=== PATIENT | male | born 1955 | race Caucasian/White ===

== ENCOUNTER 2016-11-11 01:52 | Inpatient (IN) | payer MEDICARE, OTHER ==
[~2016-11-11] VITALS: Ht 188 cm; Wt 77.9 kg
[2016-11-11] VITALS (19 sets, daily range): BP systolic 103–129; BP diastolic 62–78; PULSE 60–82; RESP 14–22; TEMP 95.7–97.9; O2SAT 95–99
[~2016-11-11 01:52] MED LIST: 1-ME1LIQ PO; ALBU8I INH; AZIT250T43 PO; BACT2OIN TOP; CEFU1TAB43 PO; CINA30 PO; FLON0.053; FURO80 PO; GUAN1TAB PO; LOTR15T TOP; METO25 PO; RENACAP2 PO; SEVEL800 PO
[2016-11-11 02:38] LABS: AUTOMATED NEUTROPHIL # 4.5 TH/MM3 (1.8-7.7); BASOPHIL % 0.6 % (0.0-2.0); EOSINOPHIL % 0.5 % (0.0-4.0); HEMATOCRIT 23.6 % (39.0-51.0); HEMO FLAGS DIFF FINAL; LYMPH % 20.3 % (9.0-44.0); LYMPHOCYTE # 1.4 TH/MM3 (1.0-4.8); MEAN CORPUSCULAR HEMOGLOBIN 32.5 PG (27.0-34.0); MEAN CORPUSCULAR HGB CONC 35.3 % (32.0-36.0); MONO % 13.9 % (0.0-8.0); NEUT % 64.7 % (16.0-70.0); PLATELET COUNT 231 TH/MM3 (150-450); RED BLOOD COUNT 2.56 MIL/MM3 (4.50-5.90); RED CELL DISTRIBUTION WIDTH 15.4 % (11.6-17.2); WHITE BLOOD COUNT 6.9 TH/MM3 (4.0-11.0)
[2016-11-11 02:48] LABS: APTT (PATIENT) 29.6 SEC (24.3-30.1); PROTHROMBIN TIME - PATIENT 11.2 SEC (9.8-11.6)
[2016-11-11 02:54] LABS: ALT (GPT) 32 U/L (12-78); ANION GAP 15 MEQ/L (5-15); AST (GOT) 47 U/L (15-37); BICARBONATE 26.8 MEQ/L (21.0-32.0); BLOOD UREA NITROGEN 109 MG/DL (7-18); CHLORIDE 89 MEQ/L (98-107); GLOMERULAR FILTRATION RATE 6 ML/MIN (>89); POTASSIUM 4.8 MEQ/L (3.5-5.1); SODIUM (NA) 131 MEQ/L (136-145)
[2016-11-11 02:57] LABS: ALKALINE PHOSPHATASE 278 U/L (45-117); TOTAL BILIRUBIN ADULT 0.3 MG/DL (0.2-1.0)
[2016-11-11] MEDS ORDERED: SODIUM CHLORIDE 0.9% FLUSH 5 ML FLUSH IVF PRN ×2 (03:45→09:00)
--- NOTE | 2016-11-11 04:26 | PD ---
HPI Chief Complaint: GI Complaint Time Seen by Provider: 02:06 Travel History International Travel<30 days: No Contact w/Intl Traveler<30days: No Traveled to known affect area: No History of Present Illness HPI The patient is a 61 year old male who presents to the [facility] emergency department with a history of developing abdominal cramping and distention that began at approximately 2 PM. He reports that it been associated with bloody stool 4 times, and vomiting 3. He denies ever having a problem like this previously, although he does report having a cancerous polyp resected from his colon in the past. He reports that it was localized therefore no other treatment was necessary. He cannot recall when he last had a colonoscopy done. The patient reports that he does have a history of chronic renal failure and is on hemodialysis on Friday, Friday, and Friday. He did have his usual dialysis on Friday. The patient denies any recent antibiotic use. He denies any known sick contacts. He denies any foreign travel. He denies any unusual food intake. The patient any recent fevers, worsening cough or congestion (he has chronic congestion and postnasal drip related to allergies), neck pain, chest pain, shortness of breath, urinary symptoms, or neurologic symptoms. PFS Past Medical History Narrative Medical The patient's past medical history is significant for chronic renal failure on hemodialysis, history of anemia, bipolar disorder, arthritis, hypertension, allergic rhinitis. Unfortunately, the patient has a limited recall of his history. The patient's electronic medical record was reviewed for further details. The patient was noted to have a history of GI bleed in December 2015. On endoscopy the patient was noted to have a polyp that was removed, a large AVM malformation, and a duodenal ulcer. Hx Anticoagulant Therapy: No Anemia: Yes Arthritis: Yes Autoimmune Disease: No Blood Disorders: No Bipolar Disorder: Yes Anxiety: No Depression: No Heart Rhythm Problems: No Cancer: Yes (skin) Cardiovascular Problems: Yes (HTN) High Cholesterol: No Chemotherapy: Yes Chest Pain: No Congestive Heart Failure: No COPD: No Cerebrovascular Accident: No Diabetes: No Dialysis: Yes (FRI, FRI, FRI) Diminished Hearing: No Endocrine: No Genitourinary: Yes Hypertension: Yes Immune Disorder: No Implanted Vascular Access Dvce: Yes Musculoskeletal: Yes Neurologic: No Psychiatric: No Reproductive: No Respiratory: No Immunizations Current: Yes Radiation Therapy: Yes Renal Failure: Yes Seizures: No Sickle Cell Disease: No Sleep Apnea: No Past Surgical History Narrative Surgical The patient's past surgical history is significant for AV fistula placement in the left upper extremity, neck surgery related to a tumor, hernia repair. Abdominal Surgery: Yes (hernia) AICD: No Arteriovenous Shunt: No Body Medical Devices: dialysis shunt l eft arm Cardiac Surgery: No Ear Surgery: No Endocrine Surgery: No Eye Surgery: No Genitourinary Surgery: No Hysterectomy: No Insulin Pump: No Joint Replacement: No Oral Surgery: No Pacemaker: No Thoracic Surgery: No Other Surgery: Yes (NECK SURGERY/TUMOR; L FISTULA, HERNIA REPAIR) Social History Alcohol Use: No (RARE ) Tobacco Use: Yes Substance Use: No Allergies-Medications (Allergen,Severity, Reaction): Coded Allergies: Haldol (Verified Allergy, Severe, SEIZURE, 07/15/16) Thorazine (Verified Allergy, Severe, SEIZURE, 07/15/16) Wellbutrin (Verified Allergy, Severe, SEIZURE, 07/15/16) Invega Sustenna (Verified Allergy, Unknown, 07/15/16) [place] (Verified Allergy, Unknown, 07/15/16) Risperdal (Verified Allergy, Unknown, 07/15/16) Valproic Acid (Verified Allergy, Unknown, 07/15/16) Reported Meds & Prescriptions Reported Meds & Active Scripts Active Reported Guanfacine (Guanfacine HCl) 1 Mg Tab 1 Mg PO HS Do not crush, chew or divide tablet. Take with a meal. Lasix (Furosemide) 80 Mg Tab 80 Mg PO DAILY Sensipar (Cinacalcet) 30 Mg Tab 30 Mg PO DAILY [Renalsoftgel ] 1 Cap PO DAILY Renvela (Sevelamer Carbonate) 800 Mg Tab 2,400 Mg PO DIRECTED Review of Systems Except as stated in HPI: all other systems reviewed are Neg General / Constitutional: No: Fever Eyes: No: Visual changes HENT: No: Headaches Cardiovascular: No: Chest Pain or Discomfort Respiratory: No: Shortness of Breath Gastrointestinal: Positive: Nausea, Vomiting, Diarrhea, Abdominal Pain, Hematochezia, Changes in Bowel Habits, No: Indigestion, Loss of Appetite Genitourinary: No: Dysuria Musculoskeletal: No: Pain Skin: No Rash Neurologic: No: Weakness Psychiatric: No: Depression Endocrine: No: Polydipsia Hematologic/Lymphatic: No: Easy Bruising Physical Exam Narrative General: The patient is a well-developed well-nourished male in no acute distress. Head and Neck exam: Head is normocephalic atraumatic. Eyes: Pupils are equal round and reactive to light. Nose: Midline septum with pink mucous membranes Mouth: Dentition unremarkable. Moist mucus membranes. Posterior oropharynx is not erythematous. No tonsillar hypertrophy. Uvula midline. Airway patent. Neck: No palpable lymphadenopathy. No nuchal rigidity. No thyromegaly. Cardiovascular: Regular rate and rhythm without murmurs, gallops, or rubs. Lungs: Clear to auscultation bilaterally. No wheezes, rhonchi, or rales. Abdomen: Soft, with reported tenderness on palpation along the suprapubic area and bilateral lower quadrants of the abdomen. No tenderness specifically over McBurney's point. No guarding, rebound, or rigidity. Negative [place] sign. Normal bowel sounds are audible. Extremities: No clubbing, cyanosis, or edema. 2+ pulses in all 4 extremities. The patient has a palpable thrill over a left AV fistula in the left upper extremity. Back: No spinous process tenderness to palpation. No costovertebral angle tenderness to palpation. Neurologic Exam: Grossly nonfocal. Skin Exam: No rash noted. Intact skin that is warm and dry. Data Data Last Documented VS Vital Signs Date Time Temp Pulse Resp B/P Pulse Ox O2 Delivery O2 Flow Rate FiO2 11/11/16 04:00 80 18 128/78 96 Room Air 11/11/16 01:56 97.8 Orders Complete Blood Count With Diff (11/11/16 02:28) Comprehensive Metabolic Panel (11/11/16 02:28) Prothrombin Time / Inr (Pt) (11/11/16 02:28) Act Partial Throm Time (Ptt) (11/11/16 02:28) Ecg Monitoring (11/11/16 02:28) Oximetry (11/11/16 02:28) Oxygen Administration (11/11/16 02:28) Iv Access Insert/Monitor (11/11/16 02:28) Type And Screen (11/11/16 02:28) Sodium Chloride 0.9% Flush (Ns Flush) (11/11/16 03:45) Ct Abd/Pel W/O Iv Contrast (11/11/16 03:31) Enteric Path (Stool) (11/11/16 04:45) Stool Wbc (Leukocytes) (11/11/16 04:45) C Diff Toxin Pcr (11/11/16 04:45) Red Blood Cells (Rbc) (11/11/16 05:13) Sodium Chlor 0.9% 250 Ml Inj (Ns 250 Ml (11/11/16 05:15) Pantoprazole Inj (Protonix Inj) (11/11/16 05:15) Pantoprazole Inj (Protonix Inj) (11/11/16 05:15) Admit Order (Ed Use Only) (11/11/16 05:20) Labs Laboratory Tests Test 11/11/16 11/11/16 11/11/16 02:14 04:29 05:13 White Blood Count 6.9 TH/MM3 Red Blood Count 2.56 MIL/MM3 Hemoglobin 8.3 GM/DL Hematocrit 23.6 % Mean Corpuscular Volume 92.0 FL Mean Corpuscular Hemoglobin 32.5 PG Mean Corpuscular Hemoglobin 35.3 % Concent Red Cell Distribution Width 15.4 % Platelet Count 231 TH/MM3 Mean Platelet Volume 8.2 FL Neutrophils (%) (Auto) 64.7 % Lymphocytes (%) (Auto) 20.3 % Monocytes (%) (Auto) 13.9 % Eosinophils (%) (Auto) 0.5 % Basophils (%) (Auto) 0.6 % Neutrophils # (Auto) 4.5 TH/MM3 Lymphocytes # (Auto) 1.4 TH/MM3 Monocytes # (Auto) 1.0 TH/MM3 Eosinophils # (Auto) 0.0 TH/MM3 Basophils # (Auto) 0.0 TH/MM3 CBC Comment DIFF FINAL Differential Comment Prothrombin Time 11.2 SEC Prothromb Time International 1.0 RATIO Ratio Activated Partial 29.6 SEC Thromboplast Time Sodium Level 131 MEQ/L Potassium Level 4.8 MEQ/L Chloride Level 89 MEQ/L Carbon Dioxide Level 26.8 MEQ/L Anion Gap 15 MEQ/L Blood Urea Nitrogen 109 MG/DL Creatinine 8.82 MG/DL Estimat Glomerular Filtration 6 ML/MIN Rate Random Glucose 97 MG/DL Calcium Level 8.8 MG/DL Total Bilirubin 0.3 MG/DL Aspartate Amino Transf 47 U/L (AST/SGOT) Alanine Aminotransferase 32 U/L (ALT/SGPT) Alkaline Phosphatase 278 U/L Total Protein 7.3 GM/DL Albumin 3.3 GM/DL Blood Type O POSITIVE Antibody Screen NEGATIVE Stool C. difficile Toxin (PCR) NEGATIVE Stl C. difficile Toxin PRESUMPTIVE Epiderm 027 NEGATIVE Crossmatch Leukocyte-Reduced Red Blood Cells Blood Bank Comment MDM Medical Decision Making Medical Screen Exam Complete: Yes Emergency Medical Condition: Yes Medical Record Reviewed: Yes Interpretation(s) Last Impressions Abdomen/Pelvis CT 11/11/16 0331 Signed Impressions: Service Date/Time: Friday, November 11, 2016 03:47 - CONCLUSION: Pockets of peritoneal fluid in the upper abdomen with overall quantity less than on prior exam. No definite acute CT findings. Baudilio Head MD Differential Diagnosis Bleeding from AVM malformation, versus hemorrhoids, versus peptic ulcer disease , versus diverticulosis Narrative Course During the course of the patients emergency department visit, the patients history, examination, and differential diagnosis were reviewed with the patient. The patient had IV access obtained and blood work sent for analysis. The patient was placed on a teletypesetter monitor with oximetry and blood pressure monitoring. The patient was given Protonix 80 mg IV followed by 8 mg IV per hour. The patient was typed and screened for blood. The patients laboratory studies were reviewed and remarkable for a white count of 6.9, hemoglobin 8.3, platelets 231 with a monocytosis at 13.9. CMP is remarkable for sodium of 131, chloride 89, BUN 109, creatinine 8.82, GFR 6, AST 47, alkaline phosphatase 278, PT 11.2, INR 29.6. Radiology studies were reviewed and remarkable for a CT scan of the abdomen and pelvis that shows pockets the peritoneal fluid in the upper abdomen with overall quantity less than on prior examinations, no definite acute CT findings. The patient during observation in the emergency department continued to have multiple episodes of bloody stool, at least 4 times. Stool was sent for stool studies. The stool was Hemoccult-positive. The patient was typed and crossmatched for 2 units of packed red blood cells to be placed on hold. I review the patient's electronic record reveals that the patient had a GI bleed in December 2015. He underwent endoscopy and was noted to have an AVM, a duodenal ulcer, and polyps status post polypectomy that revealed on pathology and adenomatous polyp. The patient had recurrent bleeding in the emergency department and is hemoglobin was borderline at 8.3. The patient was started on 1 unit of packed red blood cells. The patient's stool studies are C. difficile negative. The patients results were discussed with the patient, including the plan of care. I explained that further testing and/ or monitoring is indicated based on the patients history, examination, and/ or laboratory findings. Therefore, I recommended admission for additional evaluation. The patient expressed understanding and was agreeable with this plan. The patient was admitted to the hospital in stable condition and sent to a bed under the care of the [facility]. Physician Communication Physician Communication The patient's case was discussed with Dr. Lewis who did agree to admit the patient for further evaluation and treatment at this time Diagnosis Primary Impression: GI bleed Qualified Code: K92.2 - Gastrointestinal hemorrhage, unspecified gastrointestinal hemorrhage type Admitting Information Admitting Physician Requests: Neha Giles MD Nov 11, 2016 04:26
--- NOTE | 2016-11-11 04:51 | RADRPT ---
EXAM DATE/TIME: 11/11/2016 03:47 [facility] COMPARISON: CT ABDOMEN & PELVIS W CONTRAST, February 09, 2016, 10:04. INDICATIONS : Abdominal pain with blood in stool. ORAL CONTRAST: No oral contrast ingested. RADIATION DOSE: 9.96 CTDIvol (mGy) MEDICAL HISTORY : Hypertension. Renal failure, chronic. Dialysis 3x/week. SURGICAL HISTORY : Hernia repair. ENCOUNTER: Initial ACUITY: 1 day PAIN SCALE: 0/10 LOCATION: Bilateral abdomen. TECHNIQUE: Volumetric scanning of the abdomen and pelvis was performed. Using automated exposure control and ad justment of the mA and/or kV according to patient size, radiation dose was kept as low as reasonably achievable to obtain optimal diagnostic quality images. FINDINGS: There is mild atelectasis or infiltrate at the left lung base. Within the abdomen, there is peritoneal fluid, mainly in the upper quadrants with quantity less than on the prior film. The liver, spleen, pancreas and adrenals are stable and benign in appearance. The kidneys are atrophic and polycystic. Atherosclerotic calcifications involving aorta and branch vessels. There has been previous embolizati on of the gastroduodenal artery. The bowel structures are nondilated. Urinary bladder is decompressed. There is no evidence of retrope ritoneal adenopathy. The inguinal regions are clear. CONCLUSION: Pockets of peritoneal fluid in the upper abdomen with overall quantity less than on prior exam. No definite acute CT findings. Baudilio Head MD on November 11, 2016 at 4:43 Board Certified Radiologist. This report was verified electronically.
[2016-11-11] MEDS ORDERED: SODIUM CHLOR 0.9% 250 ML INJ 250 ML IV ONE ×3 (05:15→10:45)
[2016-11-11] MEDS ORDERED: PANTOPRAZOLE INJ 80 MG in SODIUM CHLORIDE 0.9% INJ 35 ML IV ONE (05:15)
[2016-11-11] MEDS ORDERED: PANTOPRAZOLE INJ 80 MG in SODIUM CHLORIDE 0.9% INJ 100 ML IV SCH (05:15)
[2016-11-11] MEDS ORDERED: SODIUM CHLORIDE 0.9% FLUSH 5 ML FLUSH FLUSH PRN (05:30)
[2016-11-11] MEDS ORDERED: ALBUTEROL SULFATE 90 MCG/ACT HFA 8 GM INHALER INH PRN (05:30)
[2016-11-11] MEDS ORDERED: MORPHINE SULFATE 4 MG/ML INJ IV PRN (05:30)
[2016-11-11] MEDS ORDERED: ONDANSETRON HCL 4 MG/2 ML VIAL IVP PRN (05:30)
[2016-11-11] MEDS ORDERED: BISACODYL 10 MG SUPP PR PRN (05:30)
--- NOTE | 2016-11-11 05:38 | HHI.HP ---
[facility] Unknown Admission Diagnosis GI Bleed Diagnoses: (1) GI (gastrointestinal bleed) Diagnosis: Principal (2) ESRD (end stage renal disease) on dialysis Diagnosis: Principal (3) COPD (chronic obstructive pulmonary disease) Diagnosis: Principal Travel History International Travel<30 Days: No Contact w/Intl Traveler <30 Da: No Traveled to Known Affected Are: No History of Present Illness This is a 61-year-old male with a PMH of HTN, COPD, ESRD on HD M/W/F, h/o Alcohol Abuse, Cirrhosis and h/o GI Bleed who came to the ER w/ complaints of abdominal pain w/ associated nausea and vomiting starting yesterday afternoon. Denies fever, chills or diarrhea. Had HD on Friday without complications. H/o GI Bleed in the past, s/p EGD/Colonoscopy 01/20/[address] Anna w/ large angiodysplastic legion in descending colon near splenic flexure, polyp and duodenal ulcer. While in ER, pt w/ several episodes of maroon stool. Currently on Protonix gtt. Vitals stable. Hgb 8.3, previously 9.1 on 08/03/16. Review of Systems Other ROS: 14 point review of systems otherwise negative. Past Family Social History Past Medical History PMH: HTN, COPD, ESRD on HD M/W/F, h/o Alcohol Abuse, Cirrhosis and h/o GI Bleed Past Surgical History PAST SURGICAL HISTORY: AV Fistula, Hernia Repair, Neck Surgery Allergies: Coded Allergies: Haldol (Verified Allergy, Severe, SEIZURE, 07/15/16) Thorazine (Verified Allergy, Severe, SEIZURE, 07/15/16) Wellbutrin (Verified Allergy, Severe, SEIZURE, 07/15/16) Invega Sustenna (Verified Allergy, Unknown, 07/15/16) [place] (Verified Allergy, Unknown, 07/15/16) Risperdal (Verified Allergy, Unknown, 07/15/16) Valproic Acid (Verified Allergy, Unknown, 07/15/16) Family History PAST FAMILY HISTORY: Reviewed. No h/o DM or CAD Social History PAST SOCIAL HISTORY: History of alcohol abuse. Positive for tobacco. Negative for drugs. Physical Exam Vital Signs Vital Signs Date Time Temp Pulse Resp B/P Pulse Ox O2 Delivery O2 Flow Rate FiO2 11/11/16 01:56 97.8 70 18 129/77 95 Physical Exam PE: GENERAL: Pleasant middle-age male in no acute distress. HEENT: PERRLA, EOMI. No scleral icterus or conjunctival pallor. No lid lag or facial droop. CARDIOVASCULAR: Regular rate and rhythm. No obvious murmurs to auscultation. No chest tenderness to palpation. RESPIRATORY: No obvious rhonchi or wheezing. Clear to auscultation. Breath sounds equal bilaterally. GASTROINTESTINAL: Abdomen soft, generalized tenderness palpation, nondistended. BS normal. MUSCULOSKELETAL: Extremities without clubbing, cyanosis, or edema. No obvious deformities. NEUROLOGICAL: Awake, alert and oriented x4. No focal neurologic deficits. Moving both upper and lower extremities spontaneously. Laboratory Laboratory Tests Test 11/11/16 11/11/16 02:14 05:13 White Blood Count 6.9 Red Blood Count 2.56 Hemoglobin 8.3 Hematocrit 23.6 Mean Corpuscular Volume 92.0 Mean Corpuscular Hemoglobin 32.5 Mean Corpuscular Hemoglobin 35.3 Concent Red Cell Distribution Width 15.4 Platelet Count 231 Mean Platelet Volume 8.2 Neutrophils (%) (Auto) 64.7 Lymphocytes (%) (Auto) 20.3 Monocytes (%) (Auto) 13.9 Eosinophils (%) (Auto) 0.5 Basophils (%) (Auto) 0.6 Neutrophils # (Auto) 4.5 Lymphocytes # (Auto) 1.4 Monocytes # (Auto) 1.0 Eosinophils # (Auto) 0.0 Basophils # (Auto) 0.0 CBC Comment DIFF FINAL Differential Comment Prothrombin Time 11.2 Prothromb Time International 1.0 Ratio Activated Partial 29.6 Thromboplast Time Sodium Level 131 Potassium Level 4.8 Chloride Level 89 Carbon Dioxide Level 26.8 Anion Gap 15 Blood Urea Nitrogen 109 Creatinine 8.82 Estimat Glomerular Filtration 6 Rate Random Glucose 97 Calcium Level 8.8 Total Bilirubin 0.3 Aspartate Amino Transf 47 (AST/SGOT) Alanine Aminotransferase 32 (ALT/SGPT) Alkaline Phosphatase 278 Total Protein 7.3 Albumin 3.3 Blood Type O POSITIVE Antibody Screen NEGATIVE Crossmatch Leukocyte-Reduced Red Blood Cells Blood Bank Comment Date/Time Procedure Status Source Growth 11/11/16 04:29 Stool Pus (LIZY) Received Stool Stool Pending 11/11/16 04:29 Received Stool Stool Pending Result Diagram: 11/11/1621311/11/16213 Assessment and Plan Problem List: (1) GI bleed ICD Code: K92.2 Status: Acute (2) ESRD (end stage renal disease) on dialysis ICD Code: N18.6 Status: Chronic (3) COPD (chronic obstructive pulmonary disease) ICD Code: J44.9 Status: Chronic Assessment and Plan A/P: 1. GI Bleed: h/o GI Bleed, EGD/Colonoscopy 01/20/16 w/ large AVM, polyp and duodenal ulcer. Now w/ multiple episodes of maroon stool, nausea/vomiting. Started on Protonix gtt, will continue. Vitals stable, Hgb 8.3, previously 9.1 on 08/03/16. 2u pRBC on hold, will transfuse as needed. Consult GI for further evaluation. 2. ESRD on HD: M/W/F. Follows w/ Dr. Schuster as outpatient. Had HD on Friday w / no complications. Will consult nephrology to continue w/ HD as scheduled. 3. COPD: Chronic Respiratory Failure. Controlled. DuoNeb prn as needed. 4. Tobacco Abuse: Pt counselled. Ativan/NicoDerm prn if needed. 5. DVT Prophylaxis: SCD/Teds. 6. Social work for d/c planning as needed. 7. Case discussed w/ ER physician at length. Physician Certification 2 Midnight Certification Type: Admission for Inpatient Services Order for Inpatient Services The services are ordered in accordance with Medicare regulations or non- Medicare payer requirements, as applicable. In the case of services not specified as inpatient-only, they are appropriately provided as inpatient services in accordance with the 2-midnight benchmark. Estimated LOS (days): 2 days is the estimated time the patient will need to remain in the hospital, assuming treatment plan goals are met and no additional complications. Post-Hospital Plan: Not yet determined Problem Qualifiers (1) GI bleed: Qualified Code: K92.2 - Gastrointestinal hemorrhage, unspecified gastrointestinal hemorrhage type Asya Lewis MD Nov 11, 2016 05:38
[2016-11-11] MEDS ORDERED: [UNRECOGNIZED DRUG - OTHER] PO (06:09)
[2016-11-11] MEDS ORDERED: SEVEL800 PO (06:09)
[2016-11-11] MEDS ORDERED: FURO1TAB61 PO (06:12)
[2016-11-11] MEDS ORDERED: CINA30 PO (06:12)
[2016-11-11] MEDS ORDERED: GUAN1TAB PO (06:13)
[2016-11-11 06:19] LABS: C. DIFF EPI 027 PRESUMPTIVE NEGATIVE (NEGATIVE); C. DIFF TOXIN PCR NEGATIVE (NEGATIVE)
[2016-11-11] MEDS: ACETAMINOPHEN 325 MG TAB PO PRN ×2 (07:36→17:42)
--- NOTE | 2016-11-11 08:10 | PD.CONS ---
HPI History of Present Illness This is a 61 year old male patient with a hx of End-stage renal disease on hemodialysis Mondays, Wednesdays, and Fridays, GI bleeding from a duodenal bulb ulcer, and Campylobacter diarrhea, who came to the ER for evaluation of nausea, vomiting, and abdominal pain and started to have hematochezia consisting of maroon bloody stool while in the ER. He started having nausea and vomiting yesterday afternoon. He reports that this was a green bilious material, that then turned clear, and then dark brown. He has some mild lower abdominal discomfort described as mild pressure. He does have chronic loose stools with 1 -2 stools per day. Yesterday, around 2pm, he started having hematochezia with a moderate amount of maroon blood mixed within his stool. He is not currently taking any Protonix or other stomach meds at home. He has not taken any Ibuprofen or Aleve. He did take 2 acetaminophen for the abdominal pressure and reports that this helped. He was hospitalized earlier this year for GI bleeding and underwent evaluation with EGD on (01/24/16)---> Medium sized ulcer was found in the duodenal bulb, normal endoscopy otherwise, retroflexed views revealed no abnormalities. Pathology revealed focal acute duodenitis. S/P Colonoscopy with multiple polypectomies (01/25/16) pathology revealed adenomatous polyps. After the procedure he had rectal bleeding and was further evaluated with a repeat colonoscopy (01/26/16)--> bleeding, no active source identified. He then went for an angiogram/embolization on (01/27/16)---> Active bleeding identified from the descending duodenum, presumably at site of an ulcer. 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 Both of these foci were embolized. (Cassia Peterson) PFSH Past Medical History End-stage renal disease on hemodialysis Mondays, as Wednesdays, Fridays Bipolar disorder Chronic anemia Heavy alcohol use Adjustment disorder CHF COPD Epilepsy Gout Hypertensive nephropathy Hypertension Peptic ulcer disease Ascites History GI bleeding Multiple colon polyps- tubulovillous, tubular adenoma Duodenal ulcer Gastritis/esophagitis Campylobacter diarrhea Past Surgical History Hernia repair AV fistula placements Dialysis catheter placement Neck tumor removal EGD and colonoscopy (Cassia Peterson) Coded Allergies: Haldol (Verified Allergy, Severe, SEIZURE, 07/15/16) Thorazine (Verified Allergy, Severe, SEIZURE, 07/15/16) Wellbutrin (Verified Allergy, Severe, SEIZURE, 07/15/16) Invega Sustenna (Verified Allergy, Unknown, 07/15/16) Ecru (Verified Allergy, Unknown, 07/15/16) Risperdal (Verified Allergy, Unknown, 07/15/16) Valproic Acid (Verified Allergy, Unknown, 07/15/16) Medications Allergies Coded Allergies Type Severity Reaction Last Updated Verified Haldol Allergy Severe SEIZURE 07/15/16 Yes Thorazine Allergy Severe SEIZURE 07/15/16 Yes Wellbutrin Allergy Severe SEIZURE 07/15/16 Yes Invega Sustenna Allergy Unknown 07/15/16 Yes Ecru Allergy Unknown 07/15/16 Yes Risperdal Allergy Unknown 07/15/16 Yes Valproic Acid Allergy Unknown 07/15/16 Yes Active Scripts Medications Dose Route/Sig Days Date Category Dose Instructions Guanfacine (Guanfacine HCl) 1 Mg Tab 1 Mg PO HS 11/11/16 Reported Do not crush, chew or divide tablet. Take with a meal. Lasix (Furosemide) 80 Mg Tab 80 Mg PO DAILY 11/11/16 Reported Sensipar (Cinacalcet) 30 Mg Tab 30 Mg PO DAILY 11/11/16 Reported [Renalsoftgel ] 1 Cap PO DAILY 11/11/16 Reported Renvela (Sevelamer Carbonate) 800 Mg Tab 2,400 Mg PO DIRECTED 11/11/16 Reported Family History Father from colon cancer in his 60's. Social History Occasional tobacco use. Occasional ETOH use. Had 2 beers yesterday. No illicit drug use (Cassia Peterson) Review of Systems Constitutional: COMPLAINS OF: Fatigue, DENIES: Fever, Weight loss, Chills, Change in appetite Respiratory: DENIES: Cough, Shortness of breath Cardiovascular: DENIES: Chest pain Gastrointestinal: COMPLAINS OF: Abdominal pain, Bloody stools, Diarrhea (no diarrhea, loose stool), Nausea, Vomiting, DENIES: Black stools, Constipation, Hematemesis Musculoskeletal: COMPLAINS OF: Joint pain, Muscle aches, Back pain, Neck pain Integumentary: DENIES: Abnormal pigmentation Hematologic/lymphatic: COMPLAINS OF: Bruising Neurologic: DENIES: Headache Psychiatric: DENIES: Confusion (Peterson,Cassia Rae HOSPICE MANAGER) GI Exam Vitals I&O Vital Signs Date Time Temp Pulse Resp B/P Pulse Ox O2 Delivery O2 Flow Rate FiO2 11/11/16 08:02 74 14 111/68 97 Room Air 11/11/16 07:32 82 22 122/69 96 Room Air 11/11/16 07:03 97.9 79 20 108/77 99 Room Air 11/11/16 06:32 71 15 103/72 96 Room Air 11/11/16 06:20 97.7 71 14 119/64 99 Room Air 11/11/16 06:10 97.9 76 16 117/66 97 Room Air 11/11/16 06:06 72 15 103/65 97 Room Air 11/11/16 06:03 97.8 73 14 106/62 98 Room Air 11/11/16 05:38 72 15 119/73 99 Room Air 11/11/16 04:00 80 18 128/78 96 Room Air 11/11/16 01:56 97.8 70 18 129/77 95 I/O 11/10/16 11/10/16 11/10/16 11/11/16 11/11/16 11/11/16 07:00 15:00 23:00 07:00 15:00 23:00 Output Total 80 ml Balance -80 ml Output Stool Total 80 ml # Bowel Movements 1 Imaging Last Impressions Abdomen/Pelvis CT 11/11/16 0331 Signed Impressions: Service Date/Time: Friday, November 11, 2016 03:47 - CONCLUSION: Pockets of peritoneal fluid in the upper abdomen with overall quantity less than on prior exam. No definite acute CT findings. Baudilio Head MD Laboratory Test 11/11/16 11/11/16 11/11/16 02:14 04:29 05:13 White Blood Count 6.9 TH/MM3 Red Blood Count 2.56 MIL/MM3 Hemoglobin 8.3 GM/DL Hematocrit 23.6 % Mean Corpuscular Volume 92.0 FL Mean Corpuscular Hemoglobin 32.5 PG Mean Corpuscular Hemoglobin 35.3 % Concent Red Cell Distribution Width 15.4 % Platelet Count 231 TH/MM3 Mean Platelet Volume 8.2 FL Neutrophils (%) (Auto) 64.7 % Lymphocytes (%) (Auto) 20.3 % Monocytes (%) (Auto) 13.9 % Eosinophils (%) (Auto) 0.5 % Basophils (%) (Auto) 0.6 % Neutrophils # (Auto) 4.5 TH/MM3 Lymphocytes # (Auto) 1.4 TH/MM3 Monocytes # (Auto) 1.0 TH/MM3 Eosinophils # (Auto) 0.0 TH/MM3 Basophils # (Auto) 0.0 TH/MM3 CBC Comment DIFF FINAL Differential Comment Prothrombin Time 11.2 SEC Prothromb Time International 1.0 RATIO Ratio Activated Partial 29.6 SEC Thromboplast Time Sodium Level 131 MEQ/L Potassium Level 4.8 MEQ/L Chloride Level 89 MEQ/L Carbon Dioxide Level 26.8 MEQ/L Anion Gap 15 MEQ/L Blood Urea Nitrogen 109 MG/DL Creatinine 8.82 MG/DL Estimat Glomerular Filtration 6 ML/MIN Rate Random Glucose 97 MG/DL Calcium Level 8.8 MG/DL Total Bilirubin 0.3 MG/DL Aspartate Amino Transf 47 U/L (AST/SGOT) Alanine Aminotransferase 32 U/L (ALT/SGPT) Alkaline Phosphatase 278 U/L Total Protein 7.3 GM/DL Albumin 3.3 GM/DL Blood Type O POSITIVE Antibody Screen NEGATIVE Stool C. difficile Toxin (PCR) NEGATIVE Stl C. difficile Toxin PRESUMPTIVE Epiderm 027 NEGATIVE Crossmatch Leukocyte-Reduced Red Blood Cells Blood Bank Comment Date/Time Procedure Status Source Growth 11/11/16 04:29 Stool Pus (LIZY) Received Stool Stool Pending 11/11/16 04:29 Received Stool Stool Pending Physical Examination HEENT: Normocephalic; atraumatic; no jaundice. CHEST: CTA, diminished bases CARDIAC: RRR. ABDOMEN: Soft, nondistended, nontender; no hepatosplenomegaly; bowel sounds are present in all four quadrants. EXTREMITIES: Mild bilateral ankle edema. SKIN: Normal; no rash; no jaundice. CEREAL POPPER: No focal deficits; alert and oriented times three. (Cassia PetersonP) Assessment and Plan Plan ASSESSMENT: - GIB, Hematochezia with maroon blood mixed within his stool. Started with nausea/vomiting/lower abdominal pressure yesterday afternoon. He does not take NSAIDs, although he did have a couple of drinks yesterday. While in ER, he started having maroon bloody stools. HH 8.3/23.6. He has received one unit of blood. He was hospitalized for GI bleeding last year and was evaluated with EGD on (01/24/16)---> Medium sized ulcer was found in the duodenal bulb, normal endoscopy otherwise, retroflexed views revealed no abnormalities. Pathology revealed focal acute duodenitis. S/P Colonoscopy with multiple polypectomies (01/25/16) pathology revealed adenomatous polyps. After the procedure he had rectal bleeding and was further evaluated with a repeat colonoscopy (01/26/16)--> bleeding, no active source identified. He then went for an angiogram/embolization on (01/27/16)---> Active bleeding identified from the descending duodenum, presumably at site of an ulcer. 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 Both of these foci were embolized. Protonix Gtt. Clear liquids. Will make NPO and schedule for EGD today. - Anemia secondary to acute blood loss. S/P 1 unit of PRBC. 8.3/23.6. - Hyponatremia. Na 131. - ESRD on HD M/W/F - HTN, COPD per primary PLAN: - Plan for EGD today - Obtain consents - NPO - Protonix Gtt - Monitor HH - Transfuse as necessary - CBC, CMP today - Supportive care - Further recommendations to follow based on results of above - Pt seen and examined by Dr. Salinas and myself and this note is written on his behalf (Cassia Peterson) Physician Comments Seen and examined with Ms. Kristen KEMP< egd today. Possible colonoscopy if egd - ve. Monitor labs. Thank you (Osmel Salinas MD) Cassia Peterson Nov 11, 2016 08:10 Osmel Salinas MD Nov 11, 2016 14:11
[2016-11-11] MEDS: SEVELAMER CARBONATE 800 MG TAB PO SCH ×3 (08:59→17:41)
[2016-11-11] MEDS: FUROSEMIDE 80 MG TAB PO SCH (08:59)
[2016-11-11] MEDS ORDERED: GENTAMICIN SULFATE (DIALYSIS USE ONLY) 20 MG/2 ML VIAL IV PRN (09:00)
[2016-11-11] MEDS ORDERED: ALBUMIN HUMAN 25% 25 GM/100 ML BAGP IV PRN (09:00)
[2016-11-11] MEDS ORDERED: NITROGLYCERIN 0.4 MG SL 25 TABS/BTL SL PRN (09:00)
[2016-11-11] MEDS: SODIUM CHLORIDE 0.9% FLUSH 5 ML FLUSH FLUSH SCH ×2 (09:00→21:55)
[2016-11-11] MEDS ORDERED: MANNITOL 12.5 GM/50 ML VIAL IV PRN (09:00)
[2016-11-11] MEDS ORDERED: ACETAMINOPHEN 325 MG TAB PO PRN (09:00)
[2016-11-11] MEDS ORDERED: diphenhydrAMINE HCL 25 MG CAP PO PRN (09:00)
[2016-11-11] MEDS ORDERED: HEPARIN SODIUM - IV 10,000 UNITS/10 ML VIAL IVF PRN (09:00)
[2016-11-11] MEDS: VITAMIN B CMPLX/VITC/FOLIC AC CAP PO SCH (09:00)
[2016-11-11] MEDS ORDERED: GELATIN 12 MM/7 MM FOAM TOP PRN (09:00)
[2016-11-11] MEDS ORDERED: cloNIDine HCL 0.1 MG TAB PO PRN (09:00)
[2016-11-11] MEDS ORDERED: ONDANSETRON HCL 4 MG/2 ML VIAL IV PRN (09:00)
[2016-11-11] MEDS ORDERED: EPOETIN ALFA 10,000 UNITS/ML VIAL IV PRN (09:00)
[2016-11-11] MEDS ORDERED: HEPARIN SODIUM - IV 10,000 UNITS/10 ML VIAL PRN (09:00)
[2016-11-11] MEDS: METOPROLOL TARTRATE 50 MG TAB PO SCH ×2 (09:00→21:55)
[2016-11-11] MEDS ORDERED: SODIUM CHLOR 0.9% 1000 ML INJ 1,000 ML IV PRN ×3 (09:00)
[2016-11-11 09:25] LABS: AUTOMATED NEUTROPHIL # 2.9 TH/MM3 (1.8-7.7); BASOPHIL % 0.6 % (0.0-2.0); EOSINOPHIL % 0.9 % (0.0-4.0); HEMATOCRIT 22.5 % (39.0-51.0); HEMO FLAGS DIFF FINAL; LYMPH % 18.7 % (9.0-44.0); LYMPHOCYTE # 0.8 TH/MM3 (1.0-4.8); MEAN CELL VOLUME 91.4 FL (80.0-100.0); MEAN CORPUSCULAR HEMOGLOBIN 31.7 PG (27.0-34.0); MEAN CORPUSCULAR HGB CONC 34.7 % (32.0-36.0); MONO % 14.6 % (0.0-8.0); NEUT % 65.2 % (16.0-70.0); PLATELET COUNT 164 TH/MM3 (150-450); RED BLOOD COUNT 2.46 MIL/MM3 (4.50-5.90); RED CELL DISTRIBUTION WIDTH 15.1 % (11.6-17.2); WHITE BLOOD COUNT 4.4 TH/MM3 (4.0-11.0)
[2016-11-11 10:29] LABS: ALKALINE PHOSPHATASE 231 U/L (45-117); ALT (GPT) 27 U/L (12-78); ANION GAP 15 MEQ/L (5-15); AST (GOT) 39 U/L (15-37); BICARBONATE 25.7 MEQ/L (21.0-32.0); BLOOD UREA NITROGEN 120 MG/DL (7-18); CHLORIDE 91 MEQ/L (98-107); GLOMERULAR FILTRATION RATE 6 ML/MIN (>89); SODIUM (NA) 132 MEQ/L (136-145); TOTAL BILIRUBIN ADULT 0.5 MG/DL (0.2-1.0)
[2016-11-11] MEDS ORDERED: PROPOFOL 200 MG/20 ML AMP IV ONE (15:58)
[2016-11-11] MEDS: PANTOPRAZOLE INJ 80 MG in SODIUM CHLORIDE 0.9% INJ 100 ML IV SCH (17:41)
[2016-11-11 19:09] LABS: HEMATOCRIT 25.5 % (39.0-51.0); REVIEW FLAG FINAL
[2016-11-12 00:01] VITALS: BP 99/59; PULSE 70; RESP 16; TEMP 96.6; O2SAT 95
[2016-11-12] MEDS: PANTOPRAZOLE INJ 80 MG in SODIUM CHLORIDE 0.9% INJ 100 ML IV SCH ×2 (02:52→13:00)
[2016-11-12 04:15] VITALS: BP 136/74; PULSE 64; RESP 17; TEMP 96.2; O2SAT 95
[2016-11-12 05:23] LABS: BASOPHIL % 0.3 % (0.0-2.0); EOSINOPHIL % 0.6 % (0.0-4.0); HEMATOCRIT 27.4 % (39.0-51.0); HEMO FLAGS DIFF FINAL; LYMPH % 19.5 % (9.0-44.0); LYMPHOCYTE # 0.8 TH/MM3 (1.0-4.8); MEAN CELL VOLUME 89.5 FL (80.0-100.0); MEAN CORPUSCULAR HEMOGLOBIN 31.7 PG (27.0-34.0); MEAN CORPUSCULAR HGB CONC 35.4 % (32.0-36.0); MONO % 9.6 % (0.0-8.0); PLATELET COUNT 150 TH/MM3 (150-450); RED BLOOD COUNT 3.06 MIL/MM3 (4.50-5.90); RED CELL DISTRIBUTION WIDTH 18.7 % (11.6-17.2); WHITE BLOOD COUNT 4.3 TH/MM3 (4.0-11.0)
[2016-11-12 05:28] LABS: PROTHROMBIN TIME - PATIENT 10.8 SEC (9.8-11.6)
[2016-11-12 05:48] LABS: ALKALINE PHOSPHATASE 231 U/L (45-117); ALT (GPT) 29 U/L (12-78); ANION GAP 11 MEQ/L (5-15); AST (GOT) 47 U/L (15-37); BICARBONATE 30.4 MEQ/L (21.0-32.0); BLOOD UREA NITROGEN 66 MG/DL (7-18); CHLORIDE 97 MEQ/L (98-107); GLOMERULAR FILTRATION RATE 9 ML/MIN (>89); POTASSIUM 4.2 MEQ/L (3.5-5.1); SODIUM (NA) 138 MEQ/L (136-145); TOTAL BILIRUBIN ADULT 0.3 MG/DL (0.2-1.0)
--- NOTE | 2016-11-12 07:39 | MB ---
cc: KALEB MENDIOLA MD DATE OF CONSULTATION 11/11/2016 REASON FOR CONSULTATION End-stage renal disease on hemodialysis for management. HISTORY OF PRESENT ILLNESS This is 61-year-old male with past medical history of hypertension, chronic obstructive pulmonary disease, history of alcoholism, chronic liver disease, cirrhosis, history of GI bleeding with chronic anemia and end-stage renal disease on hemodialysis. He came to the hospital because of the GI bleeding. The patient has had multiple endoscopies and colonoscopies done in the past and he has history of GI bleeding. He also has history of alcoholism and according to him the last time he drank alcohol was 3-4 days ago. He noticed fresh blood in the stool and came to the hospital. He was seen by the GI and just went under endoscopy. I saw him in dialysis. This time he came with nausea, vomiting and abdominal pain and he has really maroon stools. There was no blood in the vomitus. He claims to be compliant with his dialysis treatment. His hemoglobin was low and he is getting blood transfusion now with dialysis. PAST MEDICAL HISTORY 1. Hypertension. 2. Chronic obstructive pulmonary disease. 3. Chronic liver disease. 4. History of GI bleeding. 5. History of alcohol abuse. 6. End-stage renal disease on hemodialysis. 7. Chronic anemia. PAST SURGICAL HISTORY 1. A-V fistula surgery. 2. History of neck surgery. 3. Hernia repair surgery. REVIEW OF SYSTEMS No history of fever. No sore throat. No headache, dizziness or blurring of vision. The patient has generalized weakness, feeling tired. He has nausea, vomiting and abdominal pain going on along with maroon stool. There is no blood in the vomitus. No chest pain or palpitations. SOCIAL HISTORY The patient has history of alcoholism and also of smoking. There is no history of using any other drugs. FAMILY HISTORY Noncontributory. ALLERGIES Allergic to multiple medications including - HALDOL. THORAZINE. WELLBUTRIN. LITHIUM. RISPERDAL. VALPROIC ACID. MEDICATIONS Currently he is on following medications - 1. Metoprolol 50 mg b.i.d. 2. Furosemide 80 mg once a day. 3. Nephrocaps 1 capsule daily. 4. Protonix IV infusion. 5. Renvela 2.4 grams t.i.d. with meals. 6. Zofran as needed. 7. Dulcolax as needed. PHYSICAL EXAMINATION GENERAL: On examination the patient is awake and alert. He is currently on dialysis. VITAL SIGNS: His last blood pressure is 117/69, temperature is 97.7, oxygen saturation on room air 95-99%. HEENT: Pupils equally reacting to light. Nonicteric sclerae. Conjunctivae are pale. NECK: Supple. JVD is not elevated. LUNGS: The patient has bilateral decreased air entry with occasional wheezing. HEART: S1, S2. Regular rhythm. ABDOMEN: Slightly distended, soft, lax. There is no tenderness. Bowel sounds positive. EXTREMITIES: There is mild edema in the legs. INVESTIGATIONS WBC count is 4.4, hemoglobin 7.8, platelet count 164, neutrophils 65.2%, sodium 132. Potassium 5.0, chloride 91, bicarb 25.7, BUN 120, creatinine 9.1. Calcium 8.1, total protein is 5.9. Albumin of 2.6. INR is 1.0; C-difficile toxin is PCR negative. IMAGING STUDIES The patient has CT scan of the abdomen and pelvis done which shows that he has peritoneal fluid in the upper abdomen. No acute changes. The patient has had endoscopy done and results are still pending. ASSESSMENT AND PLAN 1. GI bleeding and anemia. 2. End-stage renal disease on hemodialysis. 3. History of alcohol abuse. 4. Hypertension 5. Chronic liver disease. 6. COPD and chronic smoking. The patient he is getting blood transfusion now. The last hemoglobin we have is 7.8. He is on Protonix infusion. GI has been following and he had endoscopy done. We will follow the hemoglobin level and transfuse as needed. He is on Epogen with dialysis. We are removing 2 liters. So far the blood pressure is holding. We will continue dialysis on Friday, Friday and Friday. Thank you for the consultation and I will follow the patient while he is in the hospital. MD LUIS ANTONIO Waggoner/EDELMIRA /3:54 PM /7:23 AM
[2016-11-12 08:02] VITALS: BP 114/74; PULSE 63; RESP 16; TEMP 96.6; O2SAT 95
[2016-11-12] MEDS: VITAMIN B CMPLX/VITC/FOLIC AC CAP PO SCH (08:10)
[2016-11-12] MEDS: SEVELAMER CARBONATE 800 MG TAB PO SCH ×2 (08:11→13:00)
[2016-11-12] MEDS: METOPROLOL TARTRATE 50 MG TAB PO SCH (08:11)
[2016-11-12] MEDS: FUROSEMIDE 80 MG TAB PO SCH (08:12)
[2016-11-12] MEDS: ACETAMINOPHEN 325 MG TAB PO PRN ×2 (08:14→14:37)
[2016-11-12] MEDS: SODIUM CHLORIDE 0.9% FLUSH 5 ML FLUSH FLUSH SCH (08:15)
[2016-11-12 09:05] VITALS: O2SAT 95
--- NOTE | 2016-11-12 09:42 | HHI.NPPN ---
Subjective Complaints: Abdominal Pain General Problems: Anemia, Hypertension Renal Failure: End Stage Renal Disease History of Present Illness 61-year-old male with past medical history of hypertension, chronic obstructive pulmonary disease, history of alcoholism, chronic liver disease, cirrhosis, history of GI bleeding with chronic anemia and end-stage renal disease on hemodialysis. He came to the hospital because of the GI bleeding. The patient has had multiple endoscopies and colonoscopies done in the past and he has history of GI bleeding. He also has history of alcoholism and according to him the last time he drank alcohol was 3-4 days ago. Additional Remarks Patient is alert, no abd. pain, has no BM today. Review of Systems General Constitutional: Fatigue Cardiovascular Cardiac: SCHROEDER Gastrointestinal Gastrointestinal: Abdominal Pain, Nausea & Vomiting, Blood/Tarry Stools Objective Data Data 11/11/16 11/12/16 19:00 07:00 Intake Total 600 ml 882 ml Output Total 2200 ml Balance -1600 ml 882 ml Intake Oral 840 ml IV Total 42 ml Packed Cells 500 ml Other 100 ml Hemodialysis 2200 ml # Voids 2 # Bowel Movements 0 Vital Signs Date Time Temp Pulse Resp B/P Pulse Ox O2 Delivery O2 Flow Rate FiO2 11/12/16 09:05 95 21 11/12/16 08:18 Room Air 11/12/16 08:02 96.6 63 16 114/74 95 11/12/16 04:15 96.2 64 17 136/74 95 11/12/16 04:00 Room Air 11/12/16 00:01 96.6 70 16 99/59 95 11/12/16 00:00 Room Air 11/11/16 20:03 97.1 64 17 112/65 96 11/11/16 20:00 Room Air 11/11/16 16:14 72 11/11/16 13:45 68 16 117/69 95 11/11/16 13:37 64 16 117/69 99 11/11/16 13:23 97.7 66 16 98/65 96 11/11/16 10:30 95.7 60 18 117/66 99 11/11/16 09:56 72 20 103/62 100 -: 11/12/16 0422 11/12/16 0420 Physical Exam General Appearance: No Acute Distress, Comfortable Eyes Eye Exam: Pupils Equal Neck Neck Exam: Neck Supple Pulmonary Resp Exam: Breath Sounds Equal, No Distress, Rhonchi, Decreased Bases Cardiology CV Exam: Regular, Normal Sinus Rhythm Gastrointestinal/Abdomen GI Exam: Soft, Non-Tender, Bowel Sounds Present, Non-Distended Extremeties Extremities Exam: No Edema Neurologic Neuro Exam: Alert, Awake, Oriented Psychiatric Psych Exam: Appropriate Responses Assessment/Plan Assessment Summary: Anemia of CKD, Hypertension, End Stage Renal Disease Problem List: (1) Rectal bleeding (2) Symptomatic anemia (3) Hypertension, benign (4) CHF exacerbation (5) Alcohol abuse (6) GI (gastrointestinal bleed) (7) ESRD Plan Patient has HD done yesterday, tolerated well. EGD was done, results noted. He has transfusion yesterday. Hgb. is stable. BP is stable, HD is due in AM. Can be discharged if cleared by GI. Told to stop alcoholism. Yahaira Mata MD Nov 12, 2016 09:42
[2016-11-12 10:30] VITALS: PULSE 65
[2016-11-12 12:02] VITALS: BP 120/74; PULSE 66; RESP 16; TEMP 97; O2SAT 96
--- NOTE | 2016-11-12 13:18 | HHI.GIFU ---
Subjective Remarks Resting in bed. States he has not had any further bleeding. He is tolerating diet and not having any nausea, vomiting. Pt refusing colonoscopy- wants to have scheduled as outpatient. (Cassia Peterson) Objective Vitals I&O Vital Signs Date Time Temp Pulse Resp B/P Pulse Ox O2 Delivery O2 Flow Rate FiO2 11/12/16 10:30 65 11/12/16 09:05 95 21 11/12/16 08:18 Room Air 11/12/16 08:02 96.6 63 16 114/74 95 11/12/16 04:15 96.2 64 17 136/74 95 11/12/16 04:00 Room Air 11/12/16 00:01 96.6 70 16 99/59 95 11/12/16 00:00 Room Air 11/11/16 20:03 97.1 64 17 112/65 96 11/11/16 20:00 Room Air 11/11/16 16:14 72 11/11/16 13:45 68 16 117/69 95 11/11/16 13:37 64 16 117/69 99 11/11/16 13:23 97.7 66 16 98/65 96 I/O 11/11/16 11/11/16 11/11/16 11/12/16 11/12/16 11/12/16 07:00 15:00 23:00 07:00 15:00 23:00 Intake Total 350 ml 772 ml 360 ml Output Total 80 ml 2200 ml Balance -80 ml 350 ml -1428 ml 360 ml Intake Oral 480 ml 360 ml IV Total 42 ml Packed Cells 250 ml 250 ml Other 100 ml Output Stool Total 80 ml Hemodialysis 2200 ml # Voids 1 1 # Bowel Movements 1 0 0 Laboratory Laboratory Tests Test 11/11/16 11/12/16 11/12/16 18:46 04:20 04:22 Hemoglobin 8.9 9.7 Hematocrit 25.5 27.4 Prothrombin Time 10.8 Prothromb Time International 1.0 Ratio Sodium Level 138 Potassium Level 4.2 Chloride Level 97 Carbon Dioxide Level 30.4 Anion Gap 11 Blood Urea Nitrogen 66 Creatinine 6.11 Estimat Glomerular Filtration 9 Rate Random Glucose 83 Calcium Level 8.5 Total Bilirubin 0.3 Aspartate Amino Transf 47 (AST/SGOT) Alanine Aminotransferase 29 (ALT/SGPT) Alkaline Phosphatase 231 Total Protein 6.1 Albumin 2.7 White Blood Count 4.3 Red Blood Count 3.06 Mean Corpuscular Volume 89.5 Mean Corpuscular Hemoglobin 31.7 Mean Corpuscular Hemoglobin 35.4 Concent Red Cell Distribution Width 18.7 Platelet Count 150 Mean Platelet Volume 7.9 Neutrophils (%) (Auto) 70.0 Lymphocytes (%) (Auto) 19.5 Monocytes (%) (Auto) 9.6 Eosinophils (%) (Auto) 0.6 Basophils (%) (Auto) 0.3 Neutrophils # (Auto) 3.0 Lymphocytes # (Auto) 0.8 Monocytes # (Auto) 0.4 Eosinophils # (Auto) 0.0 Basophils # (Auto) 0.0 CBC Comment DIFF FINAL Differential Comment Date/Time Procedure Status Source Growth 11/11/16 04:29 Stool Pus (LIZY) - Final Complete Stool Stool NO WBC'S SEEN 11/11/16 04:29 Received Stool Stool Pending Imaging Last Impressions Abdomen/Pelvis CT 11/11/16 0331 Signed Impressions: Service Date/Time: Friday, November 11, 2016 03:47 - CONCLUSION: Pockets of peritoneal fluid in the upper abdomen with overall quantity less than on prior exam. No definite acute CT findings. Baudilio Head MD Physical Exam HEENT: Normocephalic; atraumatic; no jaundice CHEST: CTA CARDIAC: RRR ABDOMEN: Soft, nondistended, nontender; no hepatosplenomegaly; bowel sounds are present in all four quadrants. EXTREMITIES: No clubbing, cyanosis, or edema. SKIN: Normal; no rash; no jaundice. MOLD HOISTER: No focal deficits; alert and oriented times three. (Cassia Peterson [facility]) Assessment and Plan Plan ASSESSMENT: - GIB, Hematochezia with maroon blood mixed within his stool. Started with nausea/vomiting/lower abdominal pressure yesterday afternoon. He does not take NSAIDs, although he did have a couple of drinks yesterday. While in ER, he started having maroon bloody stools. S/P EGD (11/11/16)---> There was LA Class A esophagitis noted, there was erythematous gastritis in the gastric antrum, duodenal inflammation was found in the bulb and second portion of the duodenum, retroflexed views revealed a hiatal hernia. Colonoscopy with multiple polypectomies (01/25/16) pathology revealed adenomatous polyps. After the procedure he had rectal bleeding and was further evaluated with a repeat colonoscopy (01/26/16)--> bleeding, no active source identified. He then went for an angiogram/embolization on (01/27/16)--- > Active bleeding identified from the descending duodenum, presumably at site of an ulcer. 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 Both of these foci were embolized. D/W patient further evaluation with colonoscopy. He is refusing and would like to reschedule as an outpatient. No further bleeding. HH stable. S/P 2 units of PRBC. - Anemia secondary to acute blood loss. S/P 2 unit of PRBC. 9.7/27.4 - Hyponatremia. Na 138. - ESRD on HD M/W/F - HTN, COPD per primary PLAN: - MADELINE- Renal - Cont. Protonix - Refusing colonoscopy - Okay to d/c home - FU LITZY in 2 weeks - Outpatient colonoscopy - Pt seen and examined by Dr. Salinas and myself and this note is written on his behalf (Cassia Peterson) Physician Comments Seen and examined with Ms. Kristen KEMP, no signs of bleeding. Needs colonoscopy but refusing at present. Schedule fu with gi in 02 weeks upon dc. Thank you ( Osmel Salinas MD) Cassia Peterson Nov 12, 2016 13:18 Osmel Salinas MD Nov 12, 2016 15:24
[2016-11-12] MEDS ORDERED: PANT40TA3 PO (13:48)
[2016-11-12] MEDS ORDERED: NEPHRO PO (13:48)
--- NOTE | 2016-11-12 14:45 | HHI.FF ---
Face to Face Verification Diagnosis: (1) ESRD (2) ESRD (end stage renal disease) on dialysis (3) Metabolic bone disease Physical Therapy Order: Evaluate and Treat Home Health Nursing Order: Nursing assessment with vital signs I have seen patient Johnathon Sage on 11/12/16. My clinical findings support the need for the requested home health care services because: Deconditioned w/ increased weakness I certify that my clinical findings support that this patient is homebound because: Unsafe to leave home unassisted Pacheco Salgado MD Nov 12, 2016 14:45
[2016-11-12] MEDS ORDERED: PANTOPRAZOLE SOD 40 MG DELAYED RELEASE TAB PO SCH (21:00)
--- NOTE | 2016-11-21 01:12 | HHI.PR ---
Subjective Remarks Date of service 11/12/16. Patient seen the morning of discharge. Says he is feeling well. Denies any abdominal pain. Denies any bleeding. No nausea or vomiting. Feels like going home. Objective Objective Remarks GENERAL: patient lying in bed. Appears comfortable. Alert and oriented 3. SKIN: Warm and dry. HEAD: Normocephalic. EYES: No scleral icterus. No injection or drainage. NECK: Supple, trachea midline. No JVD. CARDIOVASCULAR: Regular rate and rhythm without murmurs, gallops, or rubs. RESPIRATORY: Breath sounds equal bilaterally. No accessory muscle use. GASTROINTESTINAL: Abdomen soft, non-tender, nondistended. MUSCULOSKELETAL: No cyanosis, or edema. BACK: Nontender without obvious deformity. No CVA tenderness. A/P Assessment and Plan //Suspected GI bleed Gastroenterology has cleared for discharge. Hemoglobin improved after 2 units of RBCs. -Prescriptions for PPI -Follow up with gastric urology for endoscopy as an outpatient. //Anemia. Multifactorial. Possible GI bleed, also with ESRD on HD. Improved after 2 units PRBCs. Follow-up with gastroenterology as outpatient //ESRD. Dialysis as per nephrology. Appreciate assistance //COPD. Continue duo nebs as needed. No acute exacerbation History of tobacco abuse. Patient counseled. Cessation strongly advised DVT prophylaxis. SCDs. Avoid" the setting of anemia. Discharge Planning discharge home. Follow-up with gastroenterology Diagnosis: possible GI bleed, anemia Status: improved after transfusion procedures: Status post dialysis. No invasive procedures. Discharge home in good condition. diet:Renal, heart healthy diet Activity ad olimpia. Follow-up with nephrology for dialysis, gastroenterology for endoscopy as outpatient Discharge medications as per medication reconciliation Pacheco Salgado MD Nov 21, 2016 01:12
== END 2016-11-12 16:23 | disposition home health service (06) | DRG 377 ==
LOC: NEPE 01:52 → NEDA 05:21 → N06B 11:41
PROVIDERS: ADMIT Internal Medicine; ATTEND Internal Medicine
PROC: 0DB68ZX Excision of Stomach, Via Natural or Artificial Opening Endoscopic, Diagnostic (ICD-10-PCS; 2016-11-11)
PROC: 5A1D00Z (ICD-10-PCS; 2016-11-11)
PROC: 30233N1 Transfusion of Nonautologous Red Blood Cells into Peripheral Vein, Percutaneous Approach (ICD-10-PCS; principal; 2016-11-11 13:05)
DX: K92.1 Melena (principal); N18.6 End stage renal disease; I13.2 Hypertensive heart and chronic kidney disease with heart failure and with stage 5 chronic kidney disease, or end stage renal disease; J96.10 Chronic respiratory failure, unspecified whether with hypoxia or hypercapnia; D62 Acute posthemorrhagic anemia; E87.1 Hypo-osmolality and hyponatremia; J44.9 Chronic obstructive pulmonary disease, unspecified; F31.9 Bipolar disorder, unspecified; I50.9 Heart failure, unspecified; G40.909 Epilepsy, unspecified, not intractable, without status epilepticus; M10.9 Gout, unspecified; K20.9 Esophagitis, unspecified; K29.70 Gastritis, unspecified, without bleeding; K29.80 Duodenitis without bleeding; D63.1 Anemia in chronic kidney disease; K44.9 Diaphragmatic hernia without obstruction or gangrene; M19.90 Unspecified osteoarthritis, unspecified site; F10.20 Alcohol dependence, uncomplicated; F17.200 Nicotine dependence, unspecified, uncomplicated; Z53.29 Procedure and treatment not carried out because of patient's decision for other reasons; Z86.010 Personal history of colon polyps; Z99.2 Dependence on renal dialysis
CPT/HCPCS: 36430; 74176; 80053; 85014; 85018; 85025; 85610; 85730; 86850; 86900; 86901; 86920; 87205; 87493; 87506; 88305; 90935; 96374; C9113; J7050; P9016; Q4081

== ENCOUNTER 2016-11-19 08:42 | Emergency (ER) | payer MEDICARE, OTHER ==
[~2016-11-19] VITALS: Ht 188 cm; Wt 77.0 kg
[~2016-11-19 08:42] MED LIST changes: -1-ME1LIQ PO; -ALBU8I INH; -AZIT250T43 PO; -BACT2OIN TOP; -CEFU1TAB43 PO; -FLON0.053; +FURO1TAB61 PO; -FURO80 PO; -LOTR15T TOP; -METO25 PO; +NEPHRO PO; +PANT40TA3 PO; -RENACAP2 PO; +[UNRECOGNIZED DRUG - OTHER] PO
[2016-11-19 08:43] VITALS: BP 156/81; PULSE 79; RESP 18; TEMP 97.5; O2SAT 98
[2016-11-19] MEDS ORDERED: CEPH-460 PO (10:36)
[2016-11-19] MEDS ORDERED: ACYC800T PO (10:36)
--- NOTE | 2016-11-19 10:37 | PD ---
HPI Chief Complaint: Skin Problem Time Seen by Provider: 10:29 Travel History International Travel<30 days: No Contact w/Intl Traveler<30days: No Traveled to known affect area: No History of Present Illness HPI 61-year-old male with ESRD on HD, here for evaluation of a rash. The patient reports that for the last month he has had a rash on his left forehead and right thigh. He was seen by his primary care physician who started him on topical steroids and another topical medication which he does not recall the exact name. He denies fevers or chills. Rash is pruritic. He states that he believes he obtained a rash from sitting on a dirty toilet seat. He was recently admitted for GI bleed, and states he is no longer having bloody bowel movements. PFSH Past Medical History Hx Anticoagulant Therapy: No Anemia: Yes Arthritis: Yes Autoimmune Disease: No Blood Disorders: No Bipolar Disorder: Yes Anxiety: No Depression: No Heart Rhythm Problems: No Cancer: Yes (SKIN) Cardiovascular Problems: Yes (HTN) High Cholesterol: No Chemotherapy: Yes Chest Pain: No Congestive Heart Failure: No COPD: No Cerebrovascular Accident: No Diabetes: No Dialysis: Yes (MON, FRI, FRI) Diminished Hearing: No Endocrine: No Gastrointestinal Disorders: Yes (colonoscopy) Genitourinary: Yes Hypertension: Yes Immune Disorder: No Implanted Vascular Access Dvce: Yes Musculoskeletal: Yes Neurologic: No Psychiatric: No Reproductive: No Respiratory: No Immunizations Current: Yes Radiation Therapy: Yes Renal Failure: Yes Seizures: No Sickle Cell Disease: No Sleep Apnea: No Past Surgical History Abdominal Surgery: Yes (HERNIA REPAIR, STOMACH SURGERY) AICD: No Arteriovenous Shunt: No Body Medical Devices: DIALYSIS SHUNT IN LEFT ARM Cardiac Surgery: No Ear Surgery: No Endocrine Surgery: No Eye Surgery: No Genitourinary Surgery: No Hysterectomy: No Insulin Pump: No Joint Replacement: No Oral Surgery: No Pacemaker: No Thoracic Surgery: No Other Surgery: Yes (NECK SURGERY/TUMOR; L FISTULA, HERNIA REPAIR) Social History Alcohol Use: No (RARE ) Tobacco Use: Yes Substance Use: No Allergies-Medications (Allergen,Severity, Reaction): Coded Allergies: Haldol (Verified Allergy, Severe, SEIZURE, 11/19/16) Thorazine (Verified Allergy, Severe, SEIZURE, 11/19/16) Wellbutrin (Verified Allergy, Severe, SEIZURE, 11/19/16) Invega Sustenna (Verified Allergy, Unknown, 11/19/16) [place] (Verified Allergy, Unknown, 11/19/16) Risperdal (Verified Allergy, Unknown, 11/19/16) Valproic Acid (Verified Allergy, Unknown, 11/19/16) Reported Meds & Prescriptions Reported Meds & Active Scripts Active Nephro-Leyla Rx (Vitamin B Cmplx/Vit C/Folic AC) 1 Tab 1 Cap PO DAILY Pantoprazole (Pantoprazole Sodium) 40 Mg Tab 40 Mg PO Q12HR 30 Days Reported Guanfacine (Guanfacine HCl) 1 Mg Tab 1 Mg PO HS Do not crush, chew or divide tablet. Take with a meal. Lasix (Furosemide) 80 Mg Tab 80 Mg PO DAILY Sensipar (Cinacalcet) 30 Mg Tab 30 Mg PO DAILY [Renalsoftgel ] 1 Cap PO DAILY Renvela (Sevelamer Carbonate) 800 Mg Tab 2,400 Mg PO DIRECTED Review of Systems Except as stated in HPI: all other systems reviewed are Neg Physical Exam Narrative GENERAL: Pleasant, well-developed, well-nourished, comfortable, no acute distress. SKIN: Warm and dry. Left for red with small area of tiny papules with slight surrounding erythema. Similar appearing papules are seen on the right medial/ anterior thigh with small area of surrounding erythema, no red streaks. HEAD: Atraumatic. Normocephalic. EYES: Pupils equal and round. No scleral icterus. No injection or drainage. ENT: Mucous membranes pink and moist. NECK: Trachea midline. No JVD. No nuchal rigidity. CARDIOVASCULAR: Regular rate and rhythm. Left arm with dialysis fistula with thrill and bruit. RESPIRATORY: No accessory muscle use. Clear to auscultation. Breath sounds equal bilaterally. GASTROINTESTINAL: Abdomen soft, non-tender, nondistended. MUSCULOSKELETAL: No obvious deformities. No clubbing. No cyanosis. No edema. NEUROLOGICAL: Awake and alert. No obvious cranial nerve deficits. Motor grossly within normal limits. Normal speech. PSYCHIATRIC: Appropriate mood and affect; insight and judgment normal. Data Data Last Documented VS Vital Signs Date Time Temp Pulse Resp B/P Pulse Ox O2 Delivery O2 Flow Rate FiO2 11/19/16 08:43 97.5 79 18 156/81 98 Room Air MDM Medical Decision Making Medical Screen Exam Complete: Yes Emergency Medical Condition: Yes Medical Record Reviewed: Yes Differential Diagnosis HSV, zoster, cellulitis, molluscum contagiosum Narrative Course This is a 61-year-old male who is here for evaluation of a rash. He has a small area on his left forehead as well as a larger area on his right thigh. Rash consists of tiny papules with mild surrounding erythema. Rash appears herpetic. He has been applying betamethasone and another cream that was prescribed by his primary care physician without improvement in symptoms. He was referred to a hand dry cleaner by his primary care physician, however he has not made an appointment yet. Plan at this time is to start him on acyclovir and Keflex with outpatient follow-up with his primary care physician or hand dry cleaner this week. He was informed on when to return to the emergency department. He verbalizes understanding and agreement with plan. Diagnosis Primary Impression: Rash Referrals: [facility] 3 days Primary Care Physician 3 days Additional Instructions: Follow-up with your primary care physician this week. Follow-up with your hand dry cleaner this week. Return to the emergency department for worsening symptoms or any other concerns. Scripts Cephalexin (Keflex)500 Mg [id number] Mg PO Q8H #30 CAP Ref 0 Prov:Niraj Altman MD 11/19/16 Acyclovir 800 Mg [id number] Mg PO 5 TIMES A DAY 7 Days Ref 0 Prov:Niraj Altman MD 11/19/16 Disposition: 01 DISCHARGE HOME Condition: Stable Niraj Altman MD Nov 19, 2016 10:36
== END 2016-11-19 10:50 | disposition home or self-care (01) ==
LOC: NEPE 08:42
DX: R21 Rash and other nonspecific skin eruption (principal); L29.9 Pruritus, unspecified; I10 Essential (primary) hypertension; N19 Unspecified kidney failure; Z99.2 Dependence on renal dialysis; Z86.2 Personal history of diseases of the blood and blood-forming organs and certain disorders involving the immune mechanism; Z87.39 Personal history of other diseases of the musculoskeletal system and connective tissue; Z86.59 Personal history of other mental and behavioral disorders; Z85.828 Personal history of other malignant neoplasm of skin; Z87.448 Personal history of other diseases of urinary system
CPT/HCPCS: 99283

== ENCOUNTER 2016-11-20 17:22 | Inpatient (IN) | payer MEDICARE, OTHER ==
[~2016-11-20] VITALS: Ht 188 cm; Wt 78.3 kg
[~2016-11-20 17:22] MED LIST changes: +ACYC800T PO; +CEPH-460 PO
[2016-11-20 17:56] VITALS: BP 138/72; PULSE 90; RESP 20; TEMP 98.3
[2016-11-20] MEDS ORDERED: SODIUM CHLORIDE 0.9% FLUSH 5 ML FLUSH IVF PRN (18:00)
[2016-11-20] MEDS ORDERED: PANTOPRAZOLE INJ 80 MG in SODIUM CHLORIDE 0.9% INJ 35 ML IV ONE (18:00)
--- NOTE | 2016-11-20 18:07 | PD ---
HPI Chief Complaint: GI Complaint Time Seen by Provider: 17:57 Travel History International Travel<30 days: No Contact w/Intl Traveler<30days: No Traveled to known affect area: No History of Present Illness HPI 61-year-old male presents with maroon-colored stool and bleeding. He received all his dialysis today and they removed 2 L. He states he's having intermittent abdominal cramping but denies other complaints. He states he was recently in the hospital for bleeding. He received heparin with dialysis but denies being on any specific blood thinners. Quality is maroon. Severity is multiple episodes. Duration is started back again today. His initial blood pressure with the ambulance team was 60/40 at dialysis but then improved to a systolic of 115. On review of records from prior admission it shows his EGD From 11/11/16 showed esophagitis and erythematous gastritis in the gastric antrum, duodenal inflammation was found in the bulb and second portion of the duodenum, retroflexed views revealed a hiatal hernia. Colonoscopy with multiple polypectomies (01/25/16) pathology revealed adenomatous polyps. After the procedure he had rectal bleeding and was further evaluated with a repeat colonoscopy (01/26/16)--> bleeding, no active source identified. He then went for an angiogram/embolization on (01/27/16)---> Active bleeding identified from the descending duodenum, presumably at site of an ulcer. 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 Both of these foci were embolized. On last admission colonoscopy was declined [facility] Past Medical History Hx Anticoagulant Therapy: No Anemia: Yes Arthritis: Yes Autoimmune Disease: No Blood Disorders: No Bipolar Disorder: Yes Anxiety: No Depression: No Heart Rhythm Problems: No Cancer: Yes (SKIN) Cardiovascular Problems: Yes (HTN) High Cholesterol: No Chemotherapy: Yes Chest Pain: No Congestive Heart Failure: No COPD: No Cerebrovascular Accident: No Diabetes: No Dialysis: Yes (MON, WED, FRI) Diminished Hearing: No Endocrine: No Gastrointestinal Disorders: Yes (colonoscopy) Genitourinary: Yes Hypertension: Yes Immune Disorder: No Implanted Vascular Access Dvce: Yes Musculoskeletal: Yes Neurologic: No Psychiatric: No Reproductive: No Respiratory: No Immunizations Current: Yes Radiation Therapy: Yes Renal Failure: Yes Seizures: No Sickle Cell Disease: No Sleep Apnea: No Past Surgical History Abdominal Surgery: Yes (HERNIA REPAIR, STOMACH SURGERY) AICD: No Arteriovenous Shunt: No Body Medical Devices: DIALYSIS SHUNT IN LEFT ARM Cardiac Surgery: No Ear Surgery: No Endocrine Surgery: No Eye Surgery: No Genitourinary Surgery: No Hysterectomy: No Insulin Pump: No Joint Replacement: No Oral Surgery: No Pacemaker: No Thoracic Surgery: No Other Surgery: Yes (NECK SURGERY/TUMOR; L FISTULA, HERNIA REPAIR) Social History Alcohol Use: No (RARE ) Tobacco Use: Yes Substance Use: No Allergies-Medications (Allergen,Severity, Reaction): Coded Allergies: Haldol (Verified Allergy, Severe, SEIZURE, 11/20/16) Thorazine (Verified Allergy, Severe, SEIZURE, 11/20/16) Wellbutrin (Verified Allergy, Severe, SEIZURE, 11/20/16) Invega Sustenna (Verified Allergy, Unknown, 11/20/16) [place] (Verified Allergy, Unknown, 11/20/16) Risperdal (Verified Allergy, Unknown, 11/20/16) Valproic Acid (Verified Allergy, Unknown, 11/20/16) Reported Meds & Prescriptions Reported Meds & Active Scripts Active Keflex (Cephalexin) 500 Mg Cap 500 Mg PO Q8H Acyclovir 800 Mg Tab 800 Mg PO 5 TIMES A DAY 7 Days Nephro-Leyla Rx (Vitamin B Cmplx/Vit C/Folic AC) 1 Tab 1 Cap PO DAILY Pantoprazole (Pantoprazole Sodium) 40 Mg Tab 40 Mg PO Q12HR 30 Days Reported Guanfacine (Guanfacine HCl) 1 Mg Tab 1 Mg PO HS Do not crush, chew or divide tablet. Take with a meal. Lasix (Furosemide) 80 Mg Tab 80 Mg PO DAILY Sensipar (Cinacalcet) 30 Mg Tab 30 Mg PO DAILY [Renalsoftgel ] 1 Cap PO DAILY Renvela (Sevelamer Carbonate) 800 Mg Tab 2,400 Mg PO DIRECTED Review of Systems Except as stated in HPI: all other systems reviewed are Neg Physical Exam Narrative GENERAL: Well-nourished, well-developed patient. SKIN: Warm and dry. HEAD: Normocephalic and atraumatic. EYES: No injection or drainage. ENT: No nasal drainage noted. NECK: Supple, trachea midline. CARDIOVASCULAR: Regular rate and rhythm RESPIRATORY: no increased effort. No accessory muscle use. GASTROINTESTINAL: Abdomen soft, non-tender, nondistended. RECTAL EXAM: Performed with impregnating machine operator and after permission. No external hemorrhoid or fissure, stool is maroon and guaiac positive NEUROLOGICAL: Awake. Moves extremities. Normal speech. Data Data Last Documented VS Orders Complete Blood Count With Diff (11/20/16 17:57) Comprehensive Metabolic Panel (11/20/16 17:57) Prothrombin Time / Inr (Pt) (11/20/16 17:57) Act Partial Throm Time (Ptt) (11/20/16 17:57) Red Blood Cells (Rbc) (11/20/16 17:57) Ecg Monitoring (11/20/16 17:57) Iv Access Insert/Monitor (11/20/16 17:57) Oximetry (11/20/16 17:57) Sodium Chloride 0.9% Flush (Ns Flush) (11/20/16 18:00) Pantoprazole Inj (Protonix Inj) (11/20/16 18:00) Pantoprazole Inj (Protonix Inj) (11/20/16 18:00) Type And Screen (11/20/16 17:57) Admit Order (Ed Use Only) (11/20/16 ) Labs Laboratory Tests Test 11/20/16 18:30 Blood Type O POSITIVE Antibody Screen NEGATIVE Crossmatch Leukocyte-Reduced Red Blood Cells Blood Bank Comment MDM Medical Decision Making Medical Screen Exam Complete: Yes Emergency Medical Condition: Yes Medical Record Reviewed: Yes (pmh confirmed) Differential Diagnosis Gastritis, ulcer, anemia..... Narrative Course Will check blood work and place on Protonix drip given history and reevaluate HemaPrompt Point of Care Internal Pos. & Neg. Controls: Passed Fecal Specimen Occult Blood: Positive Physician Communication Physician Communication oncoming physician given sign out report and will follow and admit Flaquita Márquez MD Nov 20, 2016 18:07
[2016-11-20 18:36] VITALS: BP 133/70; PULSE 66; RESP 20; O2SAT 100
[2016-11-20 18:54] LABS: AUTOMATED NEUTROPHIL # 4.8 TH/MM3 (1.8-7.7); BASOPHIL % 0.5 % (0.0-2.0); EOSINOPHIL % 0.6 % (0.0-4.0); HEMATOCRIT 26.2 % (39.0-51.0); HEMO FLAGS DIFF FINAL; LYMPHOCYTE # 0.9 TH/MM3 (1.0-4.8); MEAN CELL VOLUME 94.8 FL (80.0-100.0); MEAN CORPUSCULAR HEMOGLOBIN 31.4 PG (27.0-34.0); MEAN CORPUSCULAR HGB CONC 33.1 % (32.0-36.0); MONO % 12.4 % (0.0-8.0); NEUT % 73.5 % (16.0-70.0); PLATELET COUNT 286 TH/MM3 (150-450); RED BLOOD COUNT 2.76 MIL/MM3 (4.50-5.90); RED CELL DISTRIBUTION WIDTH 18.1 % (11.6-17.2); WHITE BLOOD COUNT 6.6 TH/MM3 (4.0-11.0)
[2016-11-20 19:11] LABS: APTT (PATIENT) 19.4 SEC (24.3-30.1); PROTHROMBIN TIME - PATIENT 10.5 SEC (9.8-11.6)
[2016-11-20 19:21] LABS: ANION GAP 9 MEQ/L (5-15); AST (GOT) 38 U/L (15-37); BICARBONATE 29.3 MEQ/L (21.0-32.0); BLOOD UREA NITROGEN 28 MG/DL (7-18); CHLORIDE 102 MEQ/L (98-107); GLOMERULAR FILTRATION RATE 16 ML/MIN (>89); POTASSIUM 4.1 MEQ/L (3.5-5.1); SODIUM (NA) 140 MEQ/L (136-145)
[2016-11-20 19:24] LABS: ALKALINE PHOSPHATASE 256 U/L (45-117); ALT (GPT) 30 U/L (12-78); TOTAL BILIRUBIN ADULT 0.7 MG/DL (0.2-1.0)
--- NOTE | 2016-11-20 19:54 | PD ---
Data Data Last Documented VS Vital Signs Date Time Temp Pulse Resp B/P Pulse Ox O2 Delivery O2 Flow Rate FiO2 11/20/16 18:36 66 20 133/70 100 Nasal Cannula 2 11/20/16 17:56 98.3 Orders Complete Blood Count With Diff (11/20/16 17:57) Comprehensive Metabolic Panel (11/20/16 17:57) Prothrombin Time / Inr (Pt) (11/20/16 17:57) Act Partial Throm Time (Ptt) (11/20/16 17:57) Red Blood Cells (Rbc) (11/20/16 17:57) Ecg Monitoring (11/20/16 17:57) Iv Access Insert/Monitor (11/20/16 17:57) Oximetry (11/20/16 17:57) Sodium Chloride 0.9% Flush (Ns Flush) (11/20/16 18:00) Pantoprazole Inj (Protonix Inj) (11/20/16 18:00) Pantoprazole Inj (Protonix Inj) (11/20/16 18:00) Type And Screen (11/20/16 17:57) Labs Laboratory Tests Test 11/20/16 18:30 White Blood Count 6.6 TH/MM3 Red Blood Count 2.76 MIL/MM3 Hemoglobin 8.7 GM/DL Hematocrit 26.2 % Mean Corpuscular Volume 94.8 FL Mean Corpuscular Hemoglobin 31.4 PG Mean Corpuscular Hemoglobin 33.1 % Concent Red Cell Distribution Width 18.1 % Platelet Count 286 TH/MM3 Mean Platelet Volume 8.0 FL Neutrophils (%) (Auto) 73.5 % Lymphocytes (%) (Auto) 13.0 % Monocytes (%) (Auto) 12.4 % Eosinophils (%) (Auto) 0.6 % Basophils (%) (Auto) 0.5 % Neutrophils # (Auto) 4.8 TH/MM3 Lymphocytes # (Auto) 0.9 TH/MM3 Monocytes # (Auto) 0.8 TH/MM3 Eosinophils # (Auto) 0.0 TH/MM3 Basophils # (Auto) 0.0 TH/MM3 CBC Comment DIFF FINAL Differential Comment Prothrombin Time 10.5 SEC Prothromb Time International 1.0 RATIO Ratio Activated Partial 19.4 SEC Thromboplast Time Sodium Level 140 MEQ/L Potassium Level 4.1 MEQ/L Chloride Level 102 MEQ/L Carbon Dioxide Level 29.3 MEQ/L Anion Gap 9 MEQ/L Blood Urea Nitrogen 28 MG/DL Creatinine 3.81 MG/DL Estimat Glomerular Filtration 16 ML/MIN Rate Random Glucose 92 MG/DL Calcium Level 8.7 MG/DL Total Bilirubin 0.7 MG/DL Aspartate Amino Transf 38 U/L (AST/SGOT) Alanine Aminotransferase 30 U/L (ALT/SGPT) Alkaline Phosphatase 256 U/L Total Protein 7.0 GM/DL Albumin 3.1 GM/DL Blood Type O POSITIVE Antibody Screen NEGATIVE Crossmatch Leukocyte-Reduced Red Blood Cells Blood Bank Comment MDM Supervised Visit with MAIRA: Yes Narrative Course Assumed care of patient from Dr. Márquez. 61-year-old man, history of hypertension, COPD, end-stage renal disease on Friday hemodialysis, alcohol abuse, cirrhosis, and history of GI bleed with known large angiodysplastic lesion of the descending colon and splenic flexure, presents with recurrent maroon bloody stools, and hypotensive episode following dialysis today. Patient was recently admitted overnight on the and . He had an EGD done but reportedly was refusing colonoscopy. Patient states she has a follow-up with GI for an outpatient colonoscopy. Hemoglobin 8.7, down one point from a week ago. Vital signs are stable here. Dr. Márquez reports guaiac positive maroon stools on exam. We'll plan on admitting patient for observation for serial hemoglobins, probably colonoscopy if he continues to drop, otherwise outpatient follow-up. Diagnosis Primary Impression: GI (gastrointestinal bleed) Qualified Code: K92.2 - Gastrointestinal hemorrhage, unspecified gastrointestinal hemorrhage type Admitting Information Admitting Physician Requests: Observation Markell Stover MD Nov 20, 2016 19:54
[2016-11-20] MEDS ORDERED: SODIUM CHLORIDE 0.9% FLUSH 5 ML FLUSH FLUSH PRN (20:15)
[2016-11-20] MEDS ORDERED: NALOXONE HCL 0.4 MG/ML AMP IV PRN (20:15)
[2016-11-20 21:00] VITALS: BP 166/86; PULSE 84; RESP 20; O2SAT 99
[2016-11-20] MEDS: SODIUM CHLORIDE 0.9% FLUSH 5 ML FLUSH FLUSH SCH (21:09)
[2016-11-20] MEDS: PANTOPRAZOLE INJ 80 MG in SODIUM CHLORIDE 0.9% INJ 100 ML IV SCH (21:09)
[2016-11-21] VITALS (18 sets, daily range): BP systolic 117–159; BP diastolic 72–97; PULSE 72–96; RESP 16–20; TEMP 97.8–98.6; O2SAT 95–100
[2016-11-21 01:48] LABS: HEMATOCRIT 20.1 % (39.0-51.0)
[2016-11-21 01:49] LABS: REVIEW FLAG FINAL
--- NOTE | 2016-11-21 03:34 | HHI.HP ---
[facility] Primary Care Physician Ivan Senior MD Admission Diagnosis hematochezia Diagnoses: Chief Complaint: bleeding Travel History International Travel<30 Days: No Contact w/Intl Traveler <30 Da: No Traveled to Known Affected Are: No History of Present Illness History from patient, ER physician communication, and review of medical records. Patient is known to me from his prior hospitalization in December 2015. He is somewhat of a poor historian. He does know his medical issues but he has a convoluted way of describing it. He states that he came from there dialysis center because once he finished dialysis yesterday he felt something was bothering his stomach and immediately after that he had a bright red blood gush of blood coming out. He stated this was soaking all his pants and he had to leave that at the dialysis center. He was also having lightheadedness after this episode. He called the staff members and they finally called 911. He reports he was given heparin over there. However he states that his bleeding is not because of this heparin and he knew it was from his stomach itself because of his prior episodes. Patient has history of cirrhosis per records which was not really biopsies. He did have several colonoscopies done previously. His latest admission was just this month. He did have workup which finally revealed angiodysplasia for which he had embolization done by IR. According to the notes, patient was also advised to have repeat colonoscopy which they somewhat planned to be done as an outpatient. Patient states he has not gone for this appointment yet since discharge from hospital on November 12, 2016. Patient also is in end-stage renal disease patient on hemodialysis. His hemoglobin was quite stable on initial arrival. Subsequent serial hemoglobin and hematocrits were ordered. Apart from the above episode, patient denies any recent fever/nausea/vomiting/ diarrhea/urinary burning or pain on urination. He reports that although he is on dialysis, he is still making urine and making quite a lot of it every day. Denies any hematemesis/hematochezia/melena/hematuria. Review of Systems Other 10 point review of system is done and all negative apart from what is mentioned in HPI Past Family Social History Past Medical History Hypertension ESRDon more dialysis Ascitesof unknown etiology. States he used to follow up with Dr. Fragoso, but currently is with Dr. Anna who saw him during last admission. History of GI bleeds History of duodenal ulcers/esophagitis/Gastritisconfirmed on EGD COPD History of alcohol abuseper EMR. Patient however tells me that he cannot afford alcohol any longer and is not drinking. Protein calorie malnutrition Past Surgical History Hernia repair AV fistula placements Dialysis catheter placement Neck tumor removal EGD and colonoscopy Reported Medications Patient's medications listed in EMRreviewed. Allergies: Coded Allergies: Chantix (Verified Allergy, Severe, Hypertension, 12/27/16) Haldol (Verified Allergy, Severe, SEIZURE, 12/27/16) Thorazine (Verified Allergy, Severe, SEIZURE, 12/27/16) Wellbutrin (Verified Allergy, Severe, SEIZURE, 12/27/16) Invega Sustenna (Verified Allergy, Unknown, 12/27/16) Almyra (Verified Allergy, Unknown, 12/27/16) Risperdal (Verified Allergy, Unknown, 12/27/16) Valproic Acid (Verified Allergy, Unknown, 12/27/16) Family History Reports family history of stroke in Social History Used to smoke cigarettes but quit many years ago. Per EMR: Has history of alcoholism. Patient has quit many years ago as well. Physical Exam Vital Signs Vital Signs Date Time Temp Pulse Resp B/P Pulse Ox O2 Delivery O2 Flow Rate FiO2 11/21/16 01:05 79 16 150/82 100 Room Air 11/20/16 21:00 84 20 166/86 99 Nasal Cannula 2 11/20/16 18:36 66 20 133/70 100 Nasal Cannula 2 11/20/16 17:56 98.3 90 20 138/72 Physical Exam GENERAL: This is a well-nourished, well-developed patient, in no apparent distress. SKIN: No rashes, ecchymoses or lesions. Cool and dry. HEAD: Atraumatic. Normocephalic. No temporal or scalp tenderness. EYES: No scleral icterus. No injection or drainage. ENT: Nose without bleeding, purulent drainage or septal hematoma. Airway patent. NECK: Trachea midline. No JVD o CARDIOVASCULAR: Regular rate and rhythm without murmurs, gallops, or rubs. RESPIRATORY: Clear to auscultation. Breath sounds equal bilaterally. No wheezes , rales, or rhonchi. GASTROINTESTINAL: Abdomen soft, non-tender, nondistended. No guarding. MUSCULOSKELETAL: Extremities without clubbing, cyanosis, or edema. No calf tenderness. NEUROLOGICAL: Awake and alert. Motor and sensory grossly within normal limits. Normal speech. Laboratory Laboratory Tests Test 11/20/16 11/21/16 18:30 00:30 White Blood Count 6.6 Red Blood Count 2.76 Hemoglobin 8.7 6.9 Hematocrit 26.2 20.1 Mean Corpuscular Volume 94.8 Mean Corpuscular Hemoglobin 31.4 Mean Corpuscular Hemoglobin 33.1 Concent Red Cell Distribution Width 18.1 Platelet Count 286 Mean Platelet Volume 8.0 Neutrophils (%) (Auto) 73.5 Lymphocytes (%) (Auto) 13.0 Monocytes (%) (Auto) 12.4 Eosinophils (%) (Auto) 0.6 Basophils (%) (Auto) 0.5 Neutrophils # (Auto) 4.8 Lymphocytes # (Auto) 0.9 Monocytes # (Auto) 0.8 Eosinophils # (Auto) 0.0 Basophils # (Auto) 0.0 CBC Comment DIFF FINAL Differential Comment Prothrombin Time 10.5 Prothromb Time International 1.0 Ratio Activated Partial 19.4 Thromboplast Time Sodium Level 140 Potassium Level 4.1 Chloride Level 102 Carbon Dioxide Level 29.3 Anion Gap 9 Blood Urea Nitrogen 28 Creatinine 3.81 Estimat Glomerular Filtration 16 Rate Random Glucose 92 Calcium Level 8.7 Total Bilirubin 0.7 Aspartate Amino Transf 38 (AST/SGOT) Alanine Aminotransferase 30 (ALT/SGPT) Alkaline Phosphatase 256 Total Protein 7.0 Albumin 3.1 Blood Type O POSITIVE Antibody Screen NEGATIVE Crossmatch Leukocyte-Reduced Red Blood Cells Blood Bank Comment Result Diagram: 11/21/16 0030 11/20/16 1830 Assessment and Plan Assessment and Plan Impression: Lower GI bleedlikely due to angiodysplasia bleeding. Acute symptomatic anemia ESRD patientson hemodialysis Plan: Serial hemoglobin hematocrit. On repeat hemoglobin, patient did drop to 6.9. Although patient is quite comfortable at rest, he was symptomatic on minimal exertion with dizziness. He also reports that he is able to make urine despite being on hemodialysis. Therefore will transfuse 2 units of PRBCeach unit over 4 hours. Also give Lasix 40 mg IV after each unit of PRBC. Patient does take Lasix by mouth at home on the days that he does not take dialysis. GI consult. GI bleeding scan. Patient's nurse and patient are informed that if patient does have bleeding episodes while in hospital, they are to call the doctor stat and also to call nuclear medicine for the bleeding scan to be done stat. Nothing by mouth. Nephrology consult for hemodialysis. DVT prophylaxiswith SCD. GI prophylaxison pantoprazole. Discussed Condition With patient, ER Physician Certification 2 Midnight Certification Type: Admission for Inpatient Services Order for Inpatient Services The services are ordered in accordance with Medicare regulations or non- Medicare payer requirements, as applicable. In the case of services not specified as inpatient-only, they are appropriately provided as inpatient services in accordance with the 2-midnight benchmark. Estimated LOS (days): 3 days is the estimated time the patient will need to remain in the hospital, assuming treatment plan goals are met and no additional complications. Post-Hospital Plan: Home Zina Truong MD Nov 21, 2016 03:34
[2016-11-21] MEDS: CEPHALEXIN MONOHYDRATE 500 MG CAP PO SCH ×3 (04:04→21:38)
[2016-11-21 04:19] LABS: AUTOMATED NEUTROPHIL # 1.9 TH/MM3 (1.8-7.7); BASOPHIL % 0.6 % (0.0-2.0); EOSINOPHIL % 0.7 % (0.0-4.0); LYMPH % 27.9 % (9.0-44.0); MEAN CELL VOLUME 93.5 FL (80.0-100.0); MEAN CORPUSCULAR HEMOGLOBIN 31.4 PG (27.0-34.0); MEAN CORPUSCULAR HGB CONC 33.6 % (32.0-36.0); MONO % 20.2 % (0.0-8.0); NEUT % 50.6 % (16.0-70.0); PLATELET COUNT 201 TH/MM3 (150-450); RED CELL DISTRIBUTION WIDTH 18.1 % (11.6-17.2); WHITE BLOOD COUNT 3.7 TH/MM3 (4.0-11.0)
[2016-11-21 04:23] LABS: HEMO FLAGS AUTO DIFF
[2016-11-21 04:27] LABS: HEMATOCRIT 20.6 % (39.0-51.0)
[2016-11-21] MEDS ORDERED: FUROSEMIDE 40 MG/4 ML VIAL IV PUSH PRN (04:45)
[2016-11-21 04:51] LABS: BICARBONATE 29.3 MEQ/L (21.0-32.0); POTASSIUM 4.3 MEQ/L (3.5-5.1)
[2016-11-21 05:11] LABS: SCAN/DIFF AUTO DIFF CONFIRMED
[2016-11-21] MEDS: PANTOPRAZOLE INJ 80 MG in SODIUM CHLORIDE 0.9% INJ 100 ML IV SCH ×3 (05:34→23:44)
[2016-11-21] MEDS: ACYCLOVIR 800 MG TAB PO SCH ×5 (06:16→21:37)
[2016-11-21] MEDS: VITAMIN B CMPLX/VITC/FOLIC AC CAP PO SCH (09:57)
[2016-11-21] MEDS: CINACALCET HYDROCHLORIDE 30 MG TAB PO SCH (09:57)
[2016-11-21] MEDS: SODIUM CHLORIDE 0.9% FLUSH 5 ML FLUSH FLUSH SCH ×2 (09:57→21:38)
[2016-11-21] MEDS: FUROSEMIDE 80 MG TAB PO SCH (09:57)
[2016-11-21 10:26] LABS: REVIEW FLAG FINAL
--- NOTE | 2016-11-21 10:50 | PD.CONS ---
HPI History of Present Illness This is a 61 year old male with a hx of End-stage renal disease on hemodialysis Mondays, Wednesdays, and Fridays, GI bleeding from a duodenal bulb ulcer, Campylobacter diarrhea, and a recent hospitalization for nausea, vomiting, hematochezia, who came to the ER for evaluation of GI Bleeding. He was recently hospitalized for the same and evaluated with EGD (11/11/16)---> There was LA Class A esophagitis noted, there was erythematous gastritis in the gastric antrum, duodenal inflammation was found in the bulb and second portion of the duodenum, retroflexed views revealed a hiatal hernia. It was recommended that he undergo a colonoscopy, but the patient refused and insisted that this be done as outpatient and therefore he was discharged home, as his bleeding had stopped and he was clinically stable. He was also hospitalized in January of 2006 and evaluated with a colonoscopy with multiple polypectomies (01/24) pathology revealed adenomatous polyps. After the procedure he had rectal bleeding and was further evaluated with a repeat colonoscopy (01/26/16)--> bleeding, no active source identified. He was then sent for an angiogram/ embolization on (01/27/16)---> Active bleeding identified from the descending duodenum, presumably at site of an ulcer. 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 Both of these foci were embolized. He reports that he was doing well up until Friday. He had a cup of coffee at the [place] and when he sat down on the chair to get HD yesterday, he started having lower abdominal cramping and was incontinent of a large amount of bloody stool mixed with maroon blood and blood clots and therefore was sent to the hospital via ambulance. He reports that he had 3 episodes total and has not had any more. He denies any nausea or vomiting. He reports that his appetite has been good up until yesterday. No heartburn or reflux. He denies any shortness of breath or chest pain. He denies any ibuprofen or aleve. He denies any alcohol. ( Cassia Peterson) PFS Past Medical History End-stage renal disease on hemodialysis Mondays, as Wednesdays, Fridays Bipolar disorder Chronic anemia Heavy alcohol use Adjustment disorder CHF COPD Epilepsy Gout Hypertensive nephropathy Hypertension Peptic ulcer disease Ascites History GI bleeding Multiple colon polyps- tubulovillous, tubular adenoma Duodenal ulcer Gastritis/esophagitis Campylobacter diarrhea Past Surgical History Hernia repair AV fistula placements Dialysis catheter placement Neck tumor removal EGD and colonoscopy (Cassia Peterson) Coded Allergies: Haldol (Verified Allergy, Severe, SEIZURE, 11/20/16) Thorazine (Verified Allergy, Severe, SEIZURE, 11/20/16) Wellbutrin (Verified Allergy, Severe, SEIZURE, 11/20/16) Invega Sustenna (Verified Allergy, Unknown, 11/20/16) [place] (Verified Allergy, Unknown, 11/20/16) Risperdal (Verified Allergy, Unknown, 11/20/16) Valproic Acid (Verified Allergy, Unknown, 11/20/16) Medications Allergies Coded Allergies Type Severity Reaction Last Updated Verified Haldol Allergy Severe SEIZURE 11/20/16 Yes Thorazine Allergy Severe SEIZURE 11/20/16 Yes Wellbutrin Allergy Severe SEIZURE 11/20/16 Yes Invega Sustenna Allergy Unknown 11/20/16 Yes [place] Allergy Unknown 11/20/16 Yes Risperdal Allergy Unknown 11/20/16 Yes Valproic Acid Allergy Unknown 11/20/16 Yes Active Scripts Medications Dose Route/Sig Days Date Category Dose Instructions Keflex (Cephalexin) 500 Mg Cap 500 Mg PO Q8H 11/19/16 Rx Acyclovir 800 Mg Tab 800 Mg PO 5 TIMES A DAY 7 11/19/16 Rx Nephro-Leyla Rx (Vitamin B Cmplx/Vit C/Folic AC) 1 Tab 1 Cap PO DAILY 11/12/16 Rx Pantoprazole (Pantoprazole Sodium) 40 Mg Tab 40 Mg PO Q12HR 30 11/12/16 Rx Guanfacine (Guanfacine HCl) 1 Mg Tab 1 Mg PO HS 11/11/16 Reported Do not crush, chew or divide tablet. Take with a meal. Lasix (Furosemide) 80 Mg Tab 80 Mg PO DAILY 11/11/16 Reported Sensipar (Cinacalcet) 30 Mg Tab 30 Mg PO DAILY 11/11/16 Reported [Renalsoftgel ] 1 Cap PO DAILY 11/11/16 Reported Renvela (Sevelamer Carbonate) 800 Mg Tab 2,400 Mg PO DIRECTED 11/11/16 Reported Family History Father from colon cancer in his 60's. Social History Occasional ETOH use, but was still drinking "Naddy Daddy's" earlier this month. No illicit drug use (PetersonCassia) Review of Systems Constitutional: COMPLAINS OF: Fatigue, DENIES: Weight loss, Chills, Change in appetite Respiratory: DENIES: Cough, Shortness of breath Cardiovascular: DENIES: Chest pain Gastrointestinal: COMPLAINS OF: Abdominal pain, Bloody stools, Diarrhea, DENIES: Black stools, Nausea, Vomiting, Heartburn, Hematemesis Musculoskeletal: COMPLAINS OF: Back pain Integumentary: DENIES: Abnormal pigmentation Hematologic/lymphatic: COMPLAINS OF: Bruising Neurologic: DENIES: Headache Psychiatric: DENIES: Confusion (Cassia Peterson) GI Exam Vitals I&O Vital Signs Date Time Temp Pulse Resp B/P Pulse Ox O2 Delivery O2 Flow Rate FiO2 11/21/16 09:30 84 20 129/83 98 Room Air 11/21/16 07:29 98.0 89 20 141/82 97 Room Air 11/21/16 06:15 86 16 147/79 98 Room Air 11/21/16 05:46 98.6 88 16 136/82 98 Room Air 11/21/16 05:30 85 16 136/76 99 Room Air 11/21/16 05:25 98.1 88 16 128/80 97 Room Air 11/21/16 05:18 98.1 88 16 128/80 97 Room Air 11/21/16 01:05 79 16 150/82 100 Room Air 11/20/16 21:00 84 20 166/86 99 Nasal Cannula 2 11/20/16 18:36 66 20 133/70 100 Nasal Cannula 2 11/20/16 17:56 98.3 90 20 138/72 I/O 11/20/16 11/20/16 11/20/16 11/21/16 11/21/16 11/21/16 07:00 15:00 23:00 07:00 15:00 23:00 Intake Total 250 ml Balance 250 ml Packed Cells 250 ml # Bowel Movements 2 Laboratory Test 11/20/16 11/21/16 11/21/16 11/21/16 18:30 00:30 03:53 10:14 White Blood Count 6.6 TH/MM3 3.7 TH/MM3 Red Blood Count 2.76 MIL/MM3 2.20 MIL/MM3 Hemoglobin 8.7 GM/DL 6.9 GM/DL 6.9 GM/DL 7.4 GM/DL Hematocrit 26.2 % 20.1 % 20.6 % 22.0 % Mean Corpuscular Volume 94.8 FL 93.5 FL Mean Corpuscular Hemoglobin 31.4 PG 31.4 PG Mean Corpuscular Hemoglobin 33.1 % 33.6 % Concent Red Cell Distribution Width 18.1 % 18.1 % Platelet Count 286 TH/MM3 201 TH/MM3 Mean Platelet Volume 8.0 FL 7.7 FL Neutrophils (%) (Auto) 73.5 % 50.6 % Lymphocytes (%) (Auto) 13.0 % 27.9 % Monocytes (%) (Auto) 12.4 % 20.2 % Eosinophils (%) (Auto) 0.6 % 0.7 % Basophils (%) (Auto) 0.5 % 0.6 % Neutrophils # (Auto) 4.8 TH/MM3 1.9 TH/MM3 Lymphocytes # (Auto) 0.9 TH/MM3 1.0 TH/MM3 Monocytes # (Auto) 0.8 TH/MM3 0.8 TH/MM3 Eosinophils # (Auto) 0.0 TH/MM3 0.0 TH/MM3 Basophils # (Auto) 0.0 TH/MM3 0.0 TH/MM3 CBC Comment DIFF FINAL AUTO DIFF Differential Comment AUTO DIFF CONFIRMED Prothrombin Time 10.5 SEC Prothromb Time International 1.0 RATIO Ratio Activated Partial 19.4 SEC Thromboplast Time Sodium Level 140 MEQ/L 141 MEQ/L Potassium Level 4.1 MEQ/L 4.3 MEQ/L Chloride Level 102 MEQ/L 103 MEQ/L Carbon Dioxide Level 29.3 MEQ/L 29.3 MEQ/L Anion Gap 9 MEQ/L 9 MEQ/L Blood Urea Nitrogen 28 MG/DL 45 MG/DL Creatinine 3.81 MG/DL 5.29 MG/DL Estimat Glomerular Filtration 16 ML/MIN 11 ML/MIN Rate Random Glucose 92 MG/DL 78 MG/DL Calcium Level 8.7 MG/DL 8.1 MG/DL Total Bilirubin 0.7 MG/DL Aspartate Amino Transf 38 U/L (AST/SGOT) Alanine Aminotransferase 30 U/L (ALT/SGPT) Alkaline Phosphatase 256 U/L Total Protein 7.0 GM/DL Albumin 3.1 GM/DL Blood Type O POSITIVE Antibody Screen NEGATIVE Crossmatch Leukocyte-Reduced Red Blood Cells Blood Bank Comment Physical Examination HEENT: Normocephalic; atraumatic; no jaundice. CHEST: CTA CARDIAC: RRR ABDOMEN: Soft, nondistended, nontender; no hepatosplenomegaly; bowel sounds are present in all four quadrants. EXTREMITIES: No clubbing, cyanosis, or edema. SKIN: Darkened lower extremities [employer] ENG[employer]EMENT [employer]NER: No focal deficits; alert and oriented times three. (PetersonCassia Mcbride VIRIDIANA) Assessment and Plan Plan ASSESSMENT: - Bloody Diarrhea, began yesterday at HD, had 3 episodes. He was hospitalized last week for n/v/hematochezia and was evaluated with EGD (11/11/16)---> There was LA Class A esophagitis noted, there was erythematous gastritis in the gastric antrum, duodenal inflammation was found in the bulb and second portion of the duodenum, retroflexed views revealed a hiatal hernia. It was recommended that he undergo a colonoscopy, but the patient refused and insisted that this be done as outpatient and therefore he was discharged home, as his bleeding had stopped and he was clinically stable. He reports that he was doing fine until yesterday when he had an episode of bloody diarrhrea x 3. Mild lower abdominal cramping, but no n/v/hematemesis. Denies ETOH/NSAIDs. HH 6.9/20.6 on admission. PPI - Anemia, acute blood loss. HH 6.9/20.6 on admission. PPI. Getting transfused. - ESRD on HD M/W/F - HTN, COPD per primary - Previous GIB, in January of 2006 and evaluated with a colonoscopy with multiple polypectomies (01/25/16) pathology revealed adenomatous polyps. After the procedure he had rectal bleeding and was further evaluated with a repeat colonoscopy (01/26/16)--> bleeding, no active source identified. He was then sent for an angiogram/embolization on (01/27/16)---> Active bleeding identified from the descending duodenum, presumably at site of an ulcer. 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 Both of these foci were embolized. PLAN: - Plan for colonoscopy in am - Obtain consents - Clear liquids - NPO after MN - Golytely - Serial HH - Transfuse as necessary - PPI - Supportive care - Further recommendations to follow based on results of above - Pt seen and examined by Dr. Marx and myself and this note is written on her behalf (Cassia Peterson) Physician Comments seen, examined agree with above if active bleeding -bleeding scan (Jolanta Marx MD) Cassia Peterson Nov 21, 2016 10:50 Jolanta Marx MD Nov 21, 2016 19:02
[2016-11-21] MEDS ORDERED: SODIUM CHLOR 0.9% 1000 ML INJ 1,000 ML IV PRN ×3 (14:27)
--- NOTE | 2016-11-21 14:27 | PD.CONS ---
[facility] Service Nephrology Consult Requested By Reason for Consult ESRD on HD Primary Care Physician Ivan Senior MD History of Present Illness This is our 61 y/o male dialysis patient with whom we follow outpatient. After dialysis yesterday, which he only received 2 hrs, he developed abdominal pressure/pain followed by bright red blood per rectum. He came in for evaluation and treatment. Hemoglobin 6.9 on arrival, he is receiving his second unit of PRBCs during my exam. PMH of HTN, anemia, ESRD on HD --. He also has a hx of prior ETOH abuse with previous GI bleeding. Other PMH as outlined below. He has been evaluated by GI, plan for colonoscopy tomorrow. We were consulted for dialysis management. There are no acute renal concerns. He is a full code. (Sharron Lebron) Review of Systems Constitutional: COMPLAINS OF: Fatigue, DENIES: Change in appetite Respiratory: DENIES: Shortness of breath Cardiovascular: COMPLAINS OF: Lower Extremity Edema, DENIES: Chest pain Gastrointestinal: COMPLAINS OF: Abdominal pain, Bloody stools, DENIES: Black stools, Constipation, Diarrhea, Nausea, Vomiting (Sharron Lebron) Past Family Social History Allergies: Coded Allergies: Haldol (Verified Allergy, Severe, SEIZURE, 11/20/16) Thorazine (Verified Allergy, Severe, SEIZURE, 11/20/16) Wellbutrin (Verified Allergy, Severe, SEIZURE, 11/20/16) Invega Sustenna (Verified Allergy, Unknown, 11/20/16) [place] (Verified Allergy, Unknown, 11/20/16) Risperdal (Verified Allergy, Unknown, 11/20/16) Valproic Acid (Verified Allergy, Unknown, 11/20/16) Past Medical History HTN ESRD on HD Anemia COPD Secondary Hyperparathyroidism Metabolic Bone Disorder Peptic ulcer disease Ascites Hx ETOH abuse History GI bleeding Multiple colon polyps- tubulovillous, tubular adenoma Duodenal ulcer Gastritis/esophagitis Campylobacter diarrhea Past Surgical History EGD/colonoscopy Hernia repair MALA COVARRUBIAS Reported Medications Keflex (Cephalexin) 500 Mg Cap 500 Mg PO Q8H Acyclovir 800 Mg Tab 800 Mg PO 5 TIMES A DAY 7 Days Nephro-Leyla Rx (Vitamin B Cmplx/Vit C/Folic AC) 1 Tab 1 Cap PO DAILY Pantoprazole (Pantoprazole Sodium) 40 Mg Tab 40 Mg PO Q12HR 30 Day Guanfacine (Guanfacine HCl) 1 Mg Tab 1 Mg PO HS Do not crush, chew or divide tablet. Take with a meal. Lasix (Furosemide) 80 Mg Tab 80 Mg PO DAILY Sensipar (Cinacalcet) 30 Mg Tab 30 Mg PO DAILY [Renalsoftgel ] 1 Cap PO DAILY Renvela (Sevelamer Carbonate) 800 Mg Tab 2,400 Mg PO DIRECTED Active Ordered Medications Current Medications Medications (Trade) Dose Ordered Sig/Shiela Route Start Time Stop Time Status Last Admin (Protonix Inj/NS Inj) 100 ml @ 10 mls/hr Q10H IV 11/20/16 18:00 11/21/16 14:08 (NS Flush) 2 ml UNSCH PRN FLUSH 11/20/16 20:15 (NS Flush) 2 ml BID FLUSH 11/20/16 21:00 11/21/16 09:57 (Narcan Inj) 0.4 mg UNSCH PRN IV 11/20/16 20:15 (Keflex) 500 mg Q8H PO 11/21/16 04:00 11/21/16 12:17 (Sensipar) 30 mg DAILY PO 11/21/16 09:00 11/21/16 09:57 (Lasix) 80 mg DAILY PO 11/21/16 09:00 11/21/16 09:57 (Tenex) 1 mg HS PO 11/21/16 21:00 (Nephrocaps) 1 cap DAILY PO 11/21/16 09:00 11/21/16 09:57 (Lasix Inj) 40 mg UNSCH PRN IV PUSH 11/21/16 04:45 11/21/16 10:36 (Colyte Liq) 4,000 ml ONCE ONCE PO 11/21/16 16:00 11/21/16 16:01 Family History No hx of renal disorders Social History Lives alone, independent Drives Previous Smoker, denies use now hx of heavy ETOH, now reports he cannot afford it Full code (Sharron Lebron) Physical Exam Vital Signs Vital Signs Date Time Temp Pulse Resp B/P Pulse Ox O2 Delivery O2 Flow Rate FiO2 11/21/16 13:34 96 18 118/97 100 Room Air 11/21/16 12:30 90 20 151/86 99 Room Air 11/21/16 12:00 90 20 128/86 100 Room Air 11/21/16 11:30 85 20 129/79 100 Room Air 11/21/16 11:02 98.0 79 16 135/74 98 Room Air 11/21/16 10:40 98.1 90 17 117/82 98 Room Air 11/21/16 09:30 84 20 129/83 98 Room Air 11/21/16 08:30 84 18 153/83 97 Room Air 11/21/16 07:29 98.0 89 20 141/82 97 Room Air 11/21/16 06:15 86 16 147/79 98 Room Air 11/21/16 05:46 98.6 88 16 136/82 98 Room Air 11/21/16 05:30 85 16 136/76 99 Room Air 11/21/16 05:25 98.1 88 16 128/80 97 Room Air 11/21/16 05:18 98.1 88 16 128/80 97 Room Air 11/21/16 01:05 79 16 150/82 100 Room Air 11/20/16 21:00 84 20 166/86 99 Nasal Cannula 2 11/20/16 18:36 66 20 133/70 100 Nasal Cannula 2 11/20/16 17:56 98.3 90 20 138/72 Physical Exam Chronically ill appearing cachectic male in NAD, lying back in bed receiving Lungs clear in upper polo, decreased in bases Cardiac: S1/S2, no murmurs, not tachycardic Abd: + ascites, generalized tenderness to palpation, bowel sounds x 4 quads Ext: 1+ lower extremity edema, pulses 2+ pedal LUE: AVF, + thrill/bruit Laboratory Laboratory Tests Test 11/20/16 11/21/16 11/21/16 11/21/16 18:30 00:30 03:53 10:14 White Blood Count 6.6 3.7 Red Blood Count 2.76 2.20 Hemoglobin 8.7 6.9 6.9 7.4 Hematocrit 26.2 20.1 20.6 22.0 Mean Corpuscular Volume 94.8 93.5 Mean Corpuscular Hemoglobin 31.4 31.4 Mean Corpuscular Hemoglobin 33.1 33.6 Concent Red Cell Distribution Width 18.1 18.1 Platelet Count 286 201 Mean Platelet Volume 8.0 7.7 Neutrophils (%) (Auto) 73.5 50.6 Lymphocytes (%) (Auto) 13.0 27.9 Monocytes (%) (Auto) 12.4 20.2 Eosinophils (%) (Auto) 0.6 0.7 Basophils (%) (Auto) 0.5 0.6 Neutrophils # (Auto) 4.8 1.9 Lymphocytes # (Auto) 0.9 1.0 Monocytes # (Auto) 0.8 0.8 Eosinophils # (Auto) 0.0 0.0 Basophils # (Auto) 0.0 0.0 CBC Comment DIFF FINAL AUTO DIFF Differential Comment AUTO DIFF CONFIRMED Prothrombin Time 10.5 Prothromb Time International 1.0 Ratio Activated Partial 19.4 Thromboplast Time Sodium Level 140 141 Potassium Level 4.1 4.3 Chloride Level 102 103 Carbon Dioxide Level 29.3 29.3 Anion Gap 9 9 Blood Urea Nitrogen 28 45 Creatinine 3.81 5.29 Estimat Glomerular Filtration 16 11 Rate Random Glucose 92 78 Calcium Level 8.7 8.1 Total Bilirubin 0.7 Aspartate Amino Transf 38 (AST/SGOT) Alanine Aminotransferase 30 (ALT/SGPT) Alkaline Phosphatase 256 Total Protein 7.0 Albumin 3.1 Blood Type O POSITIVE Antibody Screen NEGATIVE Crossmatch Leukocyte-Reduced Red Blood Cells Blood Bank Comment (Sharron Lebron) Result Diagram: 11/21/16 1014 11/21/16 0353 Imaging None available (Sharron Lebron) Assessment and Plan Problem List: (1) ESRD Plan: He had dialysis yesterday, 2 hrs, electrolytes are unremarkable today no need for additional treatment today will resume -- schedule tomorrow, orders entered metabolic profile in am monitor AVF function (2) GI (gastrointestinal bleed) Plan: GI following given Protonix to have colonoscopy tomorrow morning, further treatment depending on course (3) Metabolic bone disease Plan: On Renvela, intermittent phosphorus level (4) Hypertension, benign Plan: Blood pressure is acceptable he is on lasix (5) Anemia Plan: anemia of chronic disease, continue Epogen with dialysis worsened by acute bleeding transfuse as needed, already has received 2 units monitor hemoglobin (Sharron Lebron) Assessment and Plan patient was seen and examined. Agree with above assessment and plan. Dialysis MWF. Received blood transfusion. GI evaluation. Colonoscopy is planned. Patient has history of heavy ETOH abuse. Has liver disease. (Rubén Browne MD ) Problem Qualifiers (1) GI (gastrointestinal bleed): Qualified Code: K92.2 - Gastrointestinal hemorrhage, unspecified gastrointestinal hemorrhage type Sharron Lebron Nov 21, 2016 14:27 Rubén Browne MD Nov 21, 2016 15:09
[2016-11-21] MEDS ORDERED: HEPARIN SODIUM - IV 10,000 UNITS/10 ML VIAL PRN (14:30)
[2016-11-21] MEDS ORDERED: NITROGLYCERIN 0.4 MG SL 25 TABS/BTL SL PRN (14:30)
[2016-11-21] MEDS ORDERED: ALBUMIN HUMAN 25% 25 GM/100 ML BAGP IV PRN (14:30)
[2016-11-21] MEDS ORDERED: GELATIN 12 MM/7 MM FOAM TOP PRN (14:30)
[2016-11-21] MEDS ORDERED: HEPARIN SODIUM - IV 10,000 UNITS/10 ML VIAL IVF PRN (14:30)
[2016-11-21] MEDS ORDERED: GENTAMICIN SULFATE (DIALYSIS USE ONLY) 20 MG/2 ML VIAL IV PRN (14:30)
[2016-11-21] MEDS ORDERED: ONDANSETRON HCL 4 MG/2 ML VIAL IV PRN (14:30)
[2016-11-21] MEDS ORDERED: MANNITOL 12.5 GM/50 ML VIAL IV PRN (14:30)
[2016-11-21] MEDS ORDERED: ACETAMINOPHEN 325 MG TAB PO PRN (14:30)
[2016-11-21] MEDS ORDERED: SODIUM CHLORIDE 0.9% FLUSH 5 ML FLUSH IVF PRN (14:30)
[2016-11-21] MEDS ORDERED: cloNIDine HCL 0.1 MG TAB PO PRN (14:30)
[2016-11-21] MEDS ORDERED: diphenhydrAMINE HCL 25 MG CAP PO PRN (14:30)
[2016-11-21] MEDS ORDERED: PEG (High)/E-LYTE SOLN 4000 ML BTL PO ONE (16:00)
[2016-11-21] MEDS: SEVELAMER CARBONATE 800 MG TAB PO SCH (18:12)
--- NOTE | 2016-11-21 19:07 | HHI.PR ---
Subjective Remarks No charge. Patient admitted after midnight. Patient seen this afternoon around 3 PM. Patient denies any chest pain or shortness of breath. He does report some maroon-colored stools this afternoon. Denies any abdominal pain. He appears in good spirits. Discussed with nurse. Advised to call GI about maroon stools. Objective Vital Signs Date Time Temp Pulse Resp B/P Pulse Ox O2 Delivery O2 Flow Rate FiO2 11/21/16 16:04 98.4 74 18 127/72 95 11/21/16 13:34 96 18 118/97 100 Room Air 11/21/16 12:30 90 20 151/86 99 Room Air 11/21/16 12:00 90 20 128/86 100 Room Air 11/21/16 11:30 85 20 129/79 100 Room Air 11/21/16 11:02 98.0 79 16 135/74 98 Room Air 11/21/16 10:40 98.1 90 17 117/82 98 Room Air 11/21/16 09:30 84 20 129/83 98 Room Air 11/21/16 08:30 84 18 153/83 97 Room Air 11/21/16 07:29 98.0 89 20 141/82 97 Room Air 11/21/16 06:15 86 16 147/79 98 Room Air 11/21/16 05:46 98.6 88 16 136/82 98 Room Air 11/21/16 05:30 85 16 136/76 99 Room Air 11/21/16 05:25 98.1 88 16 128/80 97 Room Air 11/21/16 05:18 98.1 88 16 128/80 97 Room Air 11/21/16 01:05 79 16 150/82 100 Room Air 11/20/16 21:00 84 20 166/86 99 Nasal Cannula 2 I/O 11/20/16 11/20/16 11/20/16 11/21/16 11/21/16 11/21/16 07:00 15:00 23:00 07:00 15:00 23:00 Intake Total 250 ml 375 ml Balance 250 ml 375 ml Packed Cells 250 ml 375 ml # Bowel Movements 2 Result Diagram: 11/21/16 1014 11/21/16 0353 Objective Remarks GENERAL: patient sitting up in bed. Appears comfortable. Alert and oriented. SKIN: Warm and dry. AV fistula left arm. HEAD: Normocephalic. EYES: No scleral icterus. No injection or drainage. NECK: Supple, trachea midline. No JVD. CARDIOVASCULAR: Regular rate and rhythm without murmurs, gallops, or rubs. RESPIRATORY: Breath sounds equal bilaterally. No accessory muscle use. GASTROINTESTINAL: Abdomen soft, non-tender, nondistended. MUSCULOSKELETAL: No cyanosis, or edema. BACK: Nontender without obvious deformity. No CVA tenderness. A/P Assessment and Plan //Suspected lower GI bleed Acute on chronic anemia Patient continues comfortable. Continue every 4 hour hemoglobin Transfuse 2 units of rbc's today. Lasix given. Patient apparently making decent urine. -Continue to monitor closely. Gastroenterology following. Appreciate assistance //ESRD. Nephrology following for dialysis. Appreciate assistance. Prophylaxis. SCDs. Hold anticoagulation secondary to GI bleed. Discharge Planning continued monitoring for lower GI bleed. Pacheco Salgado MD Nov 21, 2016 19:07
[2016-11-21 19:55] LABS: HEMATOCRIT 27.9 % (39.0-51.0); REVIEW FLAG FINAL
[2016-11-21] MEDS: guanFACINE HCL 1 MG TAB PO SCH (21:38)
[2016-11-22] VITALS (12 sets, daily range): BP systolic 119–151; BP diastolic 74–84; PULSE 69–94; RESP 16–20; TEMP 96.4–98; O2SAT 96–100
[2016-11-22 00:36] LABS: REVIEW FLAG FINAL
[2016-11-22 00:43] LABS: HEMATOCRIT 19.7 % (39.0-51.0)
[2016-11-22] MEDS ORDERED: FUROSEMIDE 20 MG/2 ML VIAL IV PRN (01:30)
[2016-11-22] MEDS ORDERED: SODIUM CHLOR 0.9% 250 ML INJ 250 ML IV ONE (01:30)
[2016-11-22] MEDS ORDERED: FUROSEMIDE 40 MG/4 ML VIAL IV PUSH ONE (02:00)
[2016-11-22] MEDS: CEPHALEXIN MONOHYDRATE 500 MG CAP PO SCH ×3 (04:00→19:30)
[2016-11-22] MEDS ORDERED: INSULIN HUMAN REGULAR 1,000 UNITS/10 ML VIAL SQ PRN (05:30)
[2016-11-22] MEDS ORDERED: LACTATED RINGER'S 1000 ML IV SCH (05:30)
[2016-11-22] MEDS: ACYCLOVIR 800 MG TAB PO SCH ×5 (06:00→22:00)
[2016-11-22] MEDS: SEVELAMER CARBONATE 800 MG TAB PO SCH ×3 (08:00→19:30)
[2016-11-22] MEDS: SODIUM CHLORIDE 0.9% FLUSH 5 ML FLUSH FLUSH SCH ×2 (09:00→21:00)
[2016-11-22] MEDS: VITAMIN B CMPLX/VITC/FOLIC AC CAP PO SCH (09:00)
[2016-11-22] MEDS: CINACALCET HYDROCHLORIDE 30 MG TAB PO SCH (09:00)
[2016-11-22] MEDS: FUROSEMIDE 80 MG TAB PO SCH (09:00)
--- NOTE | 2016-11-22 09:14 | HHI.NPPN ---
Subjective General Problems: Anemia Renal Failure: Chronic, End Stage Renal Disease Interval History Seen during dialysis this morning. Has had GI prep earlier in anticipation of colonoscopy today. Severely anemic, given another unit PRBC this am. Still reporting melena. (Sharron Lebron) Review of Systems Gastrointestinal Gastrointestinal: Blood/Tarry Stools (Sharron Lebron) Objective Data Data 11/21/16 11/22/16 19:00 07:00 Intake Total 625 ml 320 ml Balance 625 ml 320 ml IV Total 154 ml Packed Cells 625 ml 166 ml # Voids 1 # Bowel Movements 2 3 Vital Signs Date Time Temp Pulse Resp B/P Pulse Ox O2 Delivery O2 Flow Rate FiO2 11/22/16 08:00 96.4 69 16 151/81 100 11/22/16 07:39 96.6 76 16 151/81 98 11/22/16 04:30 98.0 77 20 133/80 98 11/22/16 04:00 96.7 77 18 119/75 96 11/22/16 03:45 97.4 80 20 135/80 98 11/22/16 03:42 98 11/22/16 03:20 96.7 77 18 119/74 96 11/22/16 00:02 97.9 71 18 138/84 97 11/21/16 22:00 72 11/21/16 21:01 97.8 76 18 159/86 100 11/21/16 16:04 98.4 74 18 127/72 95 11/21/16 13:34 96 18 118/97 100 Room Air 11/21/16 12:30 90 20 151/86 99 Room Air 11/21/16 12:00 90 20 128/86 100 Room Air 11/21/16 11:30 85 20 129/79 100 Room Air 11/21/16 11:02 98.0 79 16 135/74 98 Room Air 11/21/16 10:40 98.1 90 17 117/82 98 Room Air 11/21/16 09:30 84 20 129/83 98 Room Air (Sharron Lebron) -: 11/22/16 0005 11/21/16 0353 Physical Exam General Appearance: No Acute Distress, Comfortable, Malnourished (Sharron Lebron) Ears & Nose Ears & Nose Exam: Tympanic Membranes Normal (Sharron Lebron) Neck Neck Exam: Neck Supple (Sharron Lebron) Pulmonary Resp Exam: Clear Bilaterally, Breath Sounds Equal (Sharron Lebron) Cardiology CV Exam: Regular, Normal Sinus Rhythm (Sharron Lebron) Gastrointestinal/Abdomen GI Exam: Non-Tender, Bowel Sounds Present, Positive Bowel Movement (Sharron Lebron) Musculoskeletal MS Exam: Joints Intact, Normal Tone (Sharron Lebron) Integumentary Skin Exam: Clear, Dry (Sharron Lebron) Extremeties Extremities Exam: No Edema, Pedal Pulses Palpable (Sharron Lebron) Neurologic Neuro Exam: Alert, Awake, Oriented, Speech Clear, Moving All Extremities ( Sharron Lebron) Psychiatric Psych Exam: Appropriate Responses (hSarron Lebron) Assessment/Plan Discussed Condition With: Patient Assessment Summary: Anemia of CKD, Hypertension, End Stage Renal Disease Problem List: (1) ESRD Plan: Seen during dialysis today on a 3K, 350 BFR, goal 3L continue HD on schedule monitor AVF function electrolytes unremarkable no dietary protein restriction metabolic profile in am (2) GI (gastrointestinal bleed) Plan: GI following awaiting colonoscopy today, further treatment depending on course previously on protonix gtt (3) Metabolic bone disease Plan: On Renvela,phosphorus level in process (4) Hypertension, benign Plan: Blood pressure is acceptable he is on lasix (5) Anemia Plan: anemia of chronic disease, continue Epogen with dialysis worsened by acute bleeding, given 3 units PRBC since admission follow up hemoglobin check iron profile (Sharron Lebron) Plan patient was seen and examined. GI workup. Hemoglobin low, received blood transfusion. He complains of melena. (Rubén Browne MD) Problem Qualifiers (1) GI (gastrointestinal bleed): Qualified Code: K92.2 - Gastrointestinal hemorrhage, unspecified gastrointestinal hemorrhage type Sharron Lebron Nov 22, 2016 09:14 Rubén Browne MD Nov 22, 2016 13:40
[2016-11-22] MEDS: PANTOPRAZOLE INJ 80 MG in SODIUM CHLORIDE 0.9% INJ 100 ML IV SCH ×2 (09:54→18:45)
[2016-11-22] MEDS: EPOETIN ALFA 10,000 UNITS/ML VIAL IV PRN (10:42)
[2016-11-22] MEDS ORDERED: PROPOFOL 200 MG/20 ML AMP IV ONE (13:56)
[2016-11-22] MEDS ORDERED: SIMETHICONE SUSP DROPS 40 MG/0.6 ML 30 ML BTL ONE (14:00)
[2016-11-22] MEDS ORDERED: SODIUM CHLORID 0.9% 500 ML BAG IV ONE (14:30)
[2016-11-22 16:12] LABS: AUTOMATED NEUTROPHIL # 3.3 TH/MM3 (1.8-7.7); BASOPHIL % 0.6 % (0.0-2.0); EOSINOPHIL % 0.5 % (0.0-4.0); HEMATOCRIT 24.5 % (39.0-51.0); HEMO FLAGS DIFF FINAL; LYMPH % 16.4 % (9.0-44.0); LYMPHOCYTE # 0.8 TH/MM3 (1.0-4.8); MEAN CELL VOLUME 90.7 FL (80.0-100.0); MEAN CORPUSCULAR HEMOGLOBIN 31.9 PG (27.0-34.0); MEAN CORPUSCULAR HGB CONC 35.2 % (32.0-36.0); NEUT % 70.5 % (16.0-70.0); PLATELET COUNT 194 TH/MM3 (150-450); WHITE BLOOD COUNT 4.7 TH/MM3 (4.0-11.0)
--- NOTE | 2016-11-22 16:15 | EKG ---
Date Performed: 11/22/2016 Time Performed: 06:45:00 PTAGE: 61 years EKG: Sinus rhythm LOW QRS VOLTAGE IN EXTREMITY LEADS MODERATE INTRAVENTRICULAR CONDUCTION DELAY ST DEVIATION AND MODER ATE T-WAVE ABNORMALITY, CONSIDER LATERAL ISCHEMIA ABNORMAL ECG PREVIOUS TRACING : 08/01/2016 13.38 Compared to prior tracing no significant change DOCTOR: Davey Montez Interpretating Date/Time 11/22/2016 16:14:21
--- NOTE | 2016-11-22 18:41 | RADRPT ---
EXAM DATE/TIME: 11/22/2016 16:09 [facility] COMPARISON: CT ABDOMEN & PELVIS W/O CONTRAST, November 11, 2016, 3:47. INDICATIONS : Blood in stool. DOSE: 21.4 mCi Tc99m Ultratag labeled red blood cells IV IMAGIN hrs MEDICAL HISTORY : Renal disease, end stage. Carcinoma, basal cell. SURGICAL HISTORY : Inguinal hernia repair. ENCOUNTER: Initial ACUITY: 1 day PAIN SCALE: 2/10 LOCATION: Bilateral Abdomen. TECHNIQUE: Following the modified in vitro labeling of autologous red cells, dynamic continuous images were acqu ired for the specified interval. FINDINGS: There is activity in the left side of the abdomen which peristalsis like small bowel in the upper norm drant. CONCLUSION: Activity on the left side which has the appearance of small bowel peristalsis most likely the site of the patient's GI bleeding. Carrie Christine MD on November 22, 2016 at 18:39 Board Certified Radiologist. This report was verified electronically.
[2016-11-22] MEDS ORDERED: DO NOT ADM ANY ANTICOAGULANT DRUGS XX PRN (18:45)
[2016-11-22] MEDS ORDERED: fentaNYL CITRATE 250 MCG/5 ML AMP ONE (20:26)
[2016-11-22] MEDS: guanFACINE HCL 1 MG TAB PO SCH (21:00)
--- NOTE | 2016-11-22 21:05 | PD.RAD ---
Post Procedure Progress Note Pre Procedure Diagnosis: (1) GI bleed Post Procedure Diagnosis: (1) GI bleed Procedure Date: Nov 22, 2016 Supervising Radiologist: Kendall Jonas JR Proceduralist/Assist: Ha Valdivia RT(R), Mindi Jacobs RT(R)(CV) Anesthesia: Other Plan of Activity Patient to Unit: Critical Care Patient Condition: Good See PACS Report for procedural detail/treatment Vascular-Arterial Procedure Procedure 1 Procedure Site: Celiac, Superior Mesenteric Artery Procedure(s): Angiogram Access Access Site(s): Right Femoral Artery Findings: Selective celiac, SMA and VALDEMAR angiography shows no source of active hemorrhage. No abnormal vessels. Prior GDA and distal SMA embolization. Jr. Pritesh,Kendall Gann MD Nov 22, 2016 21:05
[2016-11-22] MEDS ORDERED: IODIXANOL 320 MG/ML 50 ML VIAL (for RAD SPEC) I-ARTERIAL ONE (21:07)
--- NOTE | 2016-11-22 23:54 | HHI.PR ---
Subjective Remarks ptseen this evening around 7 PM, after missed attempts to see him in the morning while he was in dialysis, and later while he was in GI undergoing colonoscopy. Discussed with gastroenterology. Large amount of blood in colon. Patient seen in PACU around 7 PM. He says he is feeling all right. He denies any chest pain or shortness of breath. He denies any recent bloody bowel movements. Denies any abdominal pain status post 2 units RBCs today, with acceptable increase in hemoglobin.discussed with nursing. We'll make sure that every [address] are in place. Objective Vital Signs Date Time Temp Pulse Resp B/P Pulse Ox O2 Delivery O2 Flow Rate FiO2 11/22/16 22:11 97 11/22/16 21:45 94 11/22/16 19:30 97.8 92 14 129/78 98 Room Air 11/22/16 19:14 82 16 117/81 98 Room Air 11/22/16 18:45 78 16 126/83 95 Room Air 11/22/16 18:29 98.0 80 16 134/79 94 Room Air 11/22/16 15:18 97.5 77 14 115/78 95 11/22/16 15:18 97.5 77 12 115/78 95 Room Air 11/22/16 14:30 90 16 106/72 99 11/22/16 14:25 91 16 102/65 99 11/22/16 14:20 96.9 96 16 102/67 100 11/22/16 13:17 96.4 69 16 151/81 100 11/22/16 10:54 98 11/22/16 08:00 96.4 69 16 151/81 100 11/22/16 07:39 96.6 76 16 151/81 98 11/22/16 04:30 98.0 77 20 133/80 98 11/22/16 04:00 96.7 77 18 119/75 96 11/22/16 03:45 97.4 80 20 135/80 98 11/22/16 03:42 98 11/22/16 03:20 96.7 77 18 119/74 96 11/22/16 00:02 97.9 71 18 138/84 97 I/O 1/26/17 1/26/17 1/26/17 1/27/17 1/27/17 1/27/17 07:00 15:00 23:00 07:00 15:00 23:00 Intake Total 250 ml 375 ml 320 ml 240 ml 450 ml Output Total 2300 ml 0 ml Balance 250 ml 375 ml 320 ml -2060 ml 450 ml Intake Oral 0 ml IV Total 154 ml 40 ml 450 ml Packed Cells 250 ml 375 ml 166 ml 200 ml Hemodialysis 2300 ml Estimated Blood Loss 0 ml # Voids 1 # Bowel Movements 2 3 1 Result Diagram: 11/22/16 1536 11/21/16 0353 Objective Remarks GENERAL: patient sitting up in bed in PACU. Appears comfortable. Alert and oriented. SKIN: Warm and dry. AV fistula left arm. HEAD: Normocephalic. EYES: No scleral icterus. No injection or drainage. NECK: Supple, trachea midline. No JVD. CARDIOVASCULAR: Regular rate and rhythm without murmurs, gallops, or rubs. RESPIRATORY: Breath sounds equal bilaterally. No accessory muscle use. GASTROINTESTINAL: Abdomen soft, non-tender, nondistended. MUSCULOSKELETAL: No cyanosis, or edema. BACK: Nontender without obvious deformity. No CVA tenderness. A/P Assessment and Plan //Suspected lower GI bleed Acute on chronic anemia Patient continues comfortable. Continue every 4 hour hemoglobin 11/21Transfuse 2 units of rbc's today. Lasix given. Patient apparently making decent urine. -11/22. transfuse 2 units RBCs today. -Continue to monitor closely. Gastroenterology following. Appreciate assistance //ESRD. Nephrology following for dialysis. Appreciate assistance. Prophylaxis. SCDs. Hold anticoagulation secondary to GI bleed. Discharge Planning continued monitoring for lower GI bleed. Pacheco Salgado MD Nov 22, 2016 23:54
[2016-11-23] VITALS (9 sets, daily range): BP systolic 98–150; BP diastolic 50–94; PULSE 65–92; RESP 16–18; TEMP 96.1–98.6; O2SAT 94–100
[2016-11-23 02:14] LABS: REVIEW FLAG FINAL
[2016-11-23 02:16] LABS: HEMATOCRIT 19.9 % (39.0-51.0)
[2016-11-23] MEDS ORDERED: SODIUM CHLOR 0.9% 250 ML INJ 250 ML IV ONE (02:30)
[2016-11-23] MEDS ORDERED: FUROSEMIDE 20 MG/2 ML VIAL IV ONE (02:30)
[2016-11-23 02:49] LABS: BICARBONATE 29.3 MEQ/L (21.0-32.0); POTASSIUM 4.1 MEQ/L (3.5-5.1)
[2016-11-23] MEDS: CEPHALEXIN MONOHYDRATE 500 MG CAP PO SCH ×3 (04:39→20:39)
[2016-11-23] MEDS: ACYCLOVIR 800 MG TAB PO SCH ×5 (04:39→22:19)
[2016-11-23] MEDS: PANTOPRAZOLE INJ 80 MG in SODIUM CHLORIDE 0.9% INJ 100 ML IV SCH ×2 (04:40→17:12)
[2016-11-23 07:27] LABS: HEMATOCRIT 21.7 % (39.0-51.0); REVIEW FLAG FINAL
[2016-11-23 07:42] LABS: TRANSFERRIN IRON PROFILE 147 MG/DL (200-360)
[2016-11-23] MEDS: CINACALCET HYDROCHLORIDE 30 MG TAB PO SCH (08:47)
[2016-11-23] MEDS: VITAMIN B CMPLX/VITC/FOLIC AC CAP PO SCH (08:47)
[2016-11-23] MEDS: SEVELAMER CARBONATE 800 MG TAB PO SCH ×3 (08:47→17:12)
[2016-11-23] MEDS: FUROSEMIDE 80 MG TAB PO SCH (08:47)
[2016-11-23] MEDS: SODIUM CHLORIDE 0.9% FLUSH 5 ML FLUSH FLUSH SCH ×2 (08:53→20:40)
--- NOTE | 2016-11-23 10:25 | HHI.NPPN ---
Subjective General Problems: Anemia Renal Failure: Chronic, End Stage Renal Disease Interval History Underwent colonoscopy on 11/22, colon was full of blood per notes. Underwent angiogram, no source of bleeding found. Has received 4 units of PRBC. Review of Systems Gastrointestinal Gastrointestinal: Blood/Tarry Stools Objective Data Data 11/22/16 11/23/16 19:00 07:00 Intake Total 590 ml 609 ml Output Total 2300 ml 0 ml Balance -1710 ml 609 ml Intake Oral 120 ml IV Total 390 ml 187 ml Packed Cells 200 ml 302 ml Hemodialysis 2300 ml Estimated Blood Loss 0 ml # Bowel Movements 1 Vital Signs Date Time Temp Pulse Resp B/P Pulse Ox O2 Delivery O2 Flow Rate FiO2 11/23/16 08:00 98.6 92 18 129/78 96 11/23/16 04:57 97.4 65 18 150/85 99 11/23/16 03:29 97.1 75 18 145/81 99 11/23/16 03:14 96.1 72 18 136/76 100 11/23/16 00:46 98.2 89 16 98/50 95 11/22/16 22:11 97 11/22/16 21:45 94 11/22/16 19:30 97.8 92 14 129/78 98 Room Air 11/22/16 19:14 82 16 117/81 98 Room Air 11/22/16 18:45 78 16 126/83 95 Room Air 11/22/16 18:29 98.0 80 16 134/79 94 Room Air 11/22/16 15:18 97.5 77 14 115/78 95 11/22/16 15:18 97.5 77 12 115/78 95 Room Air 11/22/16 14:30 90 16 106/72 99 11/22/16 14:25 91 16 102/65 99 11/22/16 14:20 96.9 96 16 102/67 100 11/22/16 13:17 96.4 69 16 151/81 100 11/22/16 10:54 98 -: 11/23/16 0622 11/23/16 0140 Physical Exam General Appearance: No Acute Distress, Comfortable, Malnourished Ears & Nose Ears & Nose Exam: Tympanic Membranes Normal Neck Neck Exam: Neck Supple Pulmonary Resp Exam: Clear Bilaterally, Breath Sounds Equal Cardiology CV Exam: Regular, Normal Sinus Rhythm Gastrointestinal/Abdomen GI Exam: Non-Tender, Bowel Sounds Present, Positive Bowel Movement Musculoskeletal MS Exam: Joints Intact, Normal Tone Integumentary Skin Exam: Clear, Dry Extremeties Extremities Exam: No Edema, Pedal Pulses Palpable Neurologic Neuro Exam: Alert, Awake, Oriented, Speech Clear, Moving All Extremities Psychiatric Psych Exam: Appropriate Responses Assessment/Plan Discussed Condition With: Patient Assessment Summary: Anemia of CKD, Hypertension, End Stage Renal Disease Problem List: (1) ESRD Plan: Continue HD on schedule monitor AVF function electrolytes unremarkable no dietary protein restriction (2) GI (gastrointestinal bleed) Plan: GI following s/p colonoscopy and Angiogram. Monitor hemoglobin. (3) Metabolic bone disease Plan: On Renvela, phosphorus is acceptable. (4) Hypertension, benign Plan: Blood pressure is acceptable (5) Anemia Plan: Some improvement in Hemoglobin. Watch for signs of continued GI bleeding. He does have history of alcohol abuse. Transfuse as needed. No evidence of iron deficiency. Epogen with dialysis. Problem Qualifiers (1) GI (gastrointestinal bleed): Qualified Code: K92.2 - Gastrointestinal hemorrhage, unspecified gastrointestinal hemorrhage type Rubén Browne MD Nov 23, 2016 10:25
[2016-11-23] MEDS ORDERED: PROPOFOL 200 MG/20 ML AMP IV ONE (11:14)
[2016-11-23 13:38] LABS: HEMATOCRIT 24.8 % (39.0-51.0); REVIEW FLAG FINAL
[2016-11-23] MEDS ORDERED: DO NOT ADM ANY ANTICOAGULANT DRUGS XX PRN (14:00)
--- NOTE | 2016-11-23 18:32 | MB ---
cc: TRISTIN PALM MD DATE OF CONSULTATION 11/23/16 REASON FOR CONSULTATION Recurrent GI hemorrhage REFERRING PHYSICIAN Dr. Jolanta Marx HISTORY OF PRESENT ILLNESS The patient is a 61 year old male who has had multiple episodes of GI bleeding and has undergone previously angioembolization of the upper GI tract as well as the lower GI tract in the region of the ileocecal blood supply area. The patient is a dialysis patient. The patient has a question of a history of cirrhosis as well per his records. He has end-stage renal disease on hemodialysis. Hemoglobin on admission was 8.7 and dropped to 6.9 between 11/20 and 11/21. The patient has received approximately five units of packed cells since admission and is going to receive a sixth unit. On 11/11/16, esophagitis was noted as well as erythematous gastritis in the gastric antrum with some duodenal inflammation in the bulb and second port of the duodenum. It was recommended the patient undergo colonoscopy, but he refused and was discharged home. He was hospitalized with colonoscopy in January of 2016 with some bleeding with no active source identified so both active bleeding in the descending duodenum seen on 01/27/16 and small bowel angiodysplasia in the right lower quadrant were both embolized. The patient was doing well until three days prior to admission when he had lower abdominal cramping and a large amount of bloody stool. He reports that he had a total of three episodes but none since. PAST MEDICAL HISTORY Significant as noted above 1. End-stage renal dialysis on Mondays, Friday and Fridays 2. Bipolar disorder 3. Chronic anemia 4. Heavy alcohol use 5. Adjustment disorder 6. Congestive heart failure 7. Chronic obstructive pulmonary disease 8. Epilepsy 9. Gout. 10. Hypertensive nephropathy 11. Hypertension 12. Peptic ulcer disease 13. Ascites. 14. Multiple colon polyps. 15. History of duodenal ulcer 16. Gastritis 17. Campylobacter diarrhea PAST SURGICAL HISTORY 1. Hernia repair. 2. AV fistula placement 3. Dialysis catheter placement 4. Esophagogastroduodenoscopy and colonoscopy 5. Neck tumor removal. ALLERGIES HALDOL THORAZINE WELLBUTRIN (ALL CAUSE SEIZURES) LITHIUM RISPERDAL VALPROIC ACID MEDICATIONS Current are listed in the chart and include, 1. Cephalexin 2. Acyclovir 3. Pantoprazole 4. Lasix 5. Sensipar 6. Renvela 7. Renal soft gel REVIEW OF SYSTEMS Significant for fatigue. He denies any coughing or shortness of breath. CARDIOVASCULAR: Denies any chest pain GASTROINTESTINAL: Significant for bloody stool but no abdominal pain currently. HEMATOLOGIC: He does complain of some bruising. NEUROLOGIC: Denies headache PSYCHIATRIC: Denies confusion. PHYSICAL EXAMINATION GENERAL: A male in no acute distress. VITAL SIGNS: Blood pressure 141/83, pulse 78, respirations 18, 96% saturation on room air. HEENT: Sclerae anicteric. Pupils reactive. CHEST: Clear to auscultation CARDIAC: Regular rate and rhythm ABDOMEN: Soft and nontender EXTREMITIES: There is no peripheral edema. LABORATORY DATA Hemoglobin 7.4, hematocrit 22.0 as of 10 a.m. this morning. Arteriography performed yesterday did not demonstrate any evidence of bleeding source. This include the celiac angiogram. Bleeding scan on the same day demonstrates small bowel source of bleeding, although further specific area unable to be given. Dr. Marx has also related to me by the time of this dictation that upper endoscopy with an enteroscope to at least the mid jejunum failed to reveal any source of bleeding. ASSESSMENT Recurrent GI bleeding most likely in the lower small bowel or colon and most likely due to an angiodysplastic lesion or a varic. PLAN We will follow with you. There is no specific intervention at this time. I have discussed the angiographic findings with Dr. Guzman and repeat angio without gross hypotension would not be helpful and repeat bleeding scan would likely not be helpful either. Agree with lower GI workup with repeat colonoscopy when blood is cleared; not much to offer at this point. We will follow with you. MD LIZA Gonzales/ /6:00 PM /6:10 PM
[2016-11-23 18:56] LABS: HEMATOCRIT 21.6 % (39.0-51.0); REVIEW FLAG FINAL
[2016-11-23] MEDS: guanFACINE HCL 1 MG TAB PO SCH (20:40)
--- NOTE | 2016-11-23 23:59 | HHI.PR ---
Subjective Remarks patient seemed around noon. Says he is feeling well. Denies any chest pain or shortness of breath. Discussed with Dr. Marx. will continue to monitor closely. Objective Vital Signs Date Time Temp Pulse Resp B/P Pulse Ox O2 Delivery O2 Flow Rate FiO2 11/23/16 21:35 96.5 68 18 137/94 100 11/23/16 16:00 97.6 86 18 138/79 94 11/23/16 12:00 96.1 78 18 141/83 96 11/23/16 11:26 74 16 116/64 99 11/23/16 11:16 73 16 124/72 99 11/23/16 11:05 97.6 77 16 133/77 97 11/23/16 10:33 100 21 11/23/16 08:00 98.6 92 18 129/78 96 11/23/16 04:57 97.4 65 18 150/85 99 11/23/16 03:29 97.1 75 18 145/81 99 11/23/16 03:14 96.1 72 18 136/76 100 11/23/16 00:46 98.2 89 16 98/50 95 I/O 11/22/16 11/22/16 11/22/16 11/23/16 11/23/16 11/23/16 07:00 15:00 23:00 07:00 15:00 23:00 Intake Total 320 ml 240 ml 450 ml 509 ml 2380 ml Output Total 2300 ml 0 ml 780 ml Balance 320 ml -2060 ml 450 ml 509 ml 1600 ml Intake Oral 0 ml 120 ml 2280 ml IV Total 154 ml 40 ml 450 ml 87 ml Packed Cells 166 ml 200 ml 302 ml Other 100 ml Output Urine Total 780 ml Hemodialysis 2300 ml Estimated Blood Loss 0 ml # Bowel Movements 3 1 0 Result Diagram: 11/23/16 1844 11/23/16 0140 Objective Remarks GENERAL: patient sitting up in bed. Appears comfortable. Alert and oriented x 3 SKIN: Warm and dry. AV fistula left arm. HEAD: Normocephalic. EYES: No scleral icterus. No injection or drainage. NECK: Supple, trachea midline. No JVD. CARDIOVASCULAR: Regular rate and rhythm without murmurs, gallops, or rubs. RESPIRATORY: Breath sounds equal bilaterally. No accessory muscle use. GASTROINTESTINAL: Abdomen soft, non-tender, nondistended. MUSCULOSKELETAL: No cyanosis, or edema. BACK: Nontender without obvious deformity. No CVA tenderness. A/P Assessment and Plan //Suspected lower GI bleed Acute on chronic anemia Patient continues comfortable. Continue every 4 hour hemoglobin 11/21Transfuse 2 units of rbc's today. Lasix given. Patient apparently making decent urine. -11/22. Has used 2 units RBCs today. 11/23 - s/p colonoscopy.reviewed neg abd arteriogram. appreciate GI, gen surg assist. -Continue to monitor closely. Gastroenterology following. Appreciate assistance //ESRD. Nephrology following for dialysis. Appreciate assistance. Prophylaxis. SCDs. Hold anticoagulation secondary to GI bleed. Discharge Planning continued monitoring for lower GI bleed. aPcheco Salgado MD Nov 23, 2016 23:59
[2016-11-24] VITALS (12 sets, daily range): BP systolic 130–192; BP diastolic 70–104; PULSE 66–82; RESP 14–18; TEMP 95.7–97.3; O2SAT 95–100
[2016-11-24 00:15] LABS: REVIEW FLAG FINAL
[2016-11-24 00:20] LABS: HEMATOCRIT 18.9 % (39.0-51.0)
[2016-11-24] MEDS ORDERED: FUROSEMIDE 20 MG/2 ML VIAL IV PRN (00:45)
[2016-11-24] MEDS ORDERED: SODIUM CHLOR 0.9% 250 ML INJ 250 ML IV ONE (00:45)
[2016-11-24] MEDS: PANTOPRAZOLE INJ 80 MG in SODIUM CHLORIDE 0.9% INJ 100 ML IV SCH ×3 (00:54→21:05)
[2016-11-24] MEDS: CEPHALEXIN MONOHYDRATE 500 MG CAP PO SCH ×3 (03:19→20:48)
[2016-11-24] MEDS ORDERED: FLUT1SPR22 (05:25)
[2016-11-24] MEDS: ACYCLOVIR 800 MG TAB PO SCH ×5 (05:32→21:04)
[2016-11-24] MEDS: CINACALCET HYDROCHLORIDE 30 MG TAB PO SCH (08:21)
[2016-11-24] MEDS: VITAMIN B CMPLX/VITC/FOLIC AC CAP PO SCH (08:21)
[2016-11-24] MEDS: FUROSEMIDE 80 MG TAB PO SCH (08:21)
[2016-11-24] MEDS: SEVELAMER CARBONATE 800 MG TAB PO SCH ×3 (08:21→17:00)
[2016-11-24] MEDS: SODIUM CHLORIDE 0.9% FLUSH 5 ML FLUSH FLUSH SCH ×2 (08:25→20:48)
[2016-11-24 09:43] LABS: HEMATOCRIT 27.6 % (39.0-51.0); REVIEW FLAG FINAL
--- NOTE | 2016-11-24 11:51 | RADRPT ---
EXAM DATE/TIME: 11/22/2016 20:04 [facility] COMPARISON: None. INDICATIONS : Patient presents with GI bleed felt to be upper in nature in need of angiogram with possible emboliza tion. GI bleeding scan suggests small bowel origin. MEDICAL HISTORY : ESRD HTN Chronic anemia CHF COPD Gout HTN Ascites Hx of GI bleed Gastritis SURGICAL HISTORY : Hernia sx AV fistula placement Dialysis catheter placment Neck tumor removal EGD ENCOUNTER: Initial ACUITY: 2 days PAIN SCORE: 0/10 LOCATION: N/A FLUORO TIME: 6.1 minutes ACCESS SITE: Right Femoral artery SEDATION TIME: 30 minutes CONTRAST: 1.) 110 cc Visipaque (iodixanol) MEDICATION(S): 1.) 50 mcg fentanyl (Sublimaze) IV PROCEDURE : 1. Ultrasound-guided puncture of the access site. 2. Conscious sedation with continuous EKG and Oximetry monitoring. 3. Angiography of the superior mesenteric artery 4. Angiography of the celiac artery 5. Angiography of the inferior mesenteric artery The risks, benefits and alternatives to the procedure were explained and verbal and written consent w as obtained. The site was prepped in sterile fashion. Full sterile technique was used, including ca p, mask, sterile gloves and gown and a large sterile sheet. Hand hygiene and 2% chlorhexidine and/or betadine/alcohol prep was utilized per protocol for cutaneous antisepsis. The skin and subcutaneous tissues were infiltrated with local anesthetic solution. With ultrasound and fluoroscopic guidance the selected artery was punctured and a vascular sheath was placed Selective angiography of the mesenteric vessels was performed. Initially the SMA was selected followe d by the celiac and finally the VALDEMAR. Selective angiography from these levels shows no acute hemorrhag e. No angiodysplasia identified. Prior embolization of the gastroduodenal artery as well as a small i leocolic branch off the SMA is seen. The puncture site was closed with manual pressure and hemostasis was obtained. The patient tolerated the procedure well and there were no complications. Conscious sedation was performed with the prescribed dosages and duration as above. EKG and oximetry remained stable throughout the procedure. CONCLUSION: No active source of hemorrhage or abnormal vessel identified for embolization. Kendall Jonas Jr., MD Board Certified Radiologist. This report was verified electronically.
--- NOTE | 2016-11-24 12:40 | HHI.NPPN ---
Subjective General Problems: Anemia Renal Failure: Chronic, End Stage Renal Disease Interval History patient was seen and examined. Received 2 units of PRBC yesterday, 2 units today. Surgery on the case. Review of Systems General Constitutional: Fatigue Gastrointestinal Gastrointestinal: Blood/Tarry Stools Objective Data Data 11/23/16 11/24/16 19:00 07:00 Intake Total 2380 ml 581 ml Output Total 780 ml Balance 1600 ml 581 ml Intake Oral 2280 ml 581 ml Other 100 ml Output Urine Total 780 ml # Voids 2 # Bowel Movements 0 Vital Signs Date Time Temp Pulse Resp B/P Pulse Ox O2 Delivery O2 Flow Rate FiO2 11/24/16 08:40 99 21 11/24/16 08:00 97.3 73 18 130/79 100 11/24/16 05:27 68 164/77 11/24/16 04:39 97.2 66 17 158/72 100 11/24/16 04:22 96.8 66 15 192/89 100 11/24/16 01:34 96.3 71 15 152/70 98 11/24/16 01:10 97.0 73 14 175/76 100 11/24/16 00:27 95.7 76 18 180/104 97 11/23/16 21:35 96.5 68 18 137/94 100 11/23/16 16:00 97.6 86 18 138/79 94 -: 11/24/16 0934 11/23/16 0140 Physical Exam General Appearance: No Acute Distress, Comfortable, Malnourished Ears & Nose Ears & Nose Exam: Tympanic Membranes Normal Neck Neck Exam: Neck Supple Pulmonary Resp Exam: Clear Bilaterally, Breath Sounds Equal Cardiology CV Exam: Regular, Normal Sinus Rhythm Gastrointestinal/Abdomen GI Exam: Non-Tender, Bowel Sounds Present, Positive Bowel Movement Musculoskeletal MS Exam: Joints Intact, Normal Tone Integumentary Skin Exam: Clear, Dry Extremeties Extremities Exam: No Edema, Pedal Pulses Palpable Neurologic Neuro Exam: Alert, Awake, Oriented, Speech Clear, Moving All Extremities Psychiatric Psych Exam: Appropriate Responses Assessment/Plan Discussed Condition With: Patient Assessment Summary: Anemia of CKD, Hypertension, End Stage Renal Disease Problem List: (1) ESRD Plan: Continue HD on schedule monitor AVF function (2) GI (gastrointestinal bleed) Plan: GI following s/p colonoscopy and Angiogram. Monitor hemoglobin. He has received blood transfusion, Hemoglobin is better. Surgery on the case. Patient wants his diet advanced to solid food. (3) Metabolic bone disease Plan: On Renvela, phosphorus is acceptable. (4) Hypertension, benign Plan: Blood pressure is acceptable (5) Anemia Plan: Some improvement in Hemoglobin. Watch for signs of continued GI bleeding. He does have history of alcohol abuse. Transfuse as needed. No evidence of iron deficiency. Epogen with dialysis. Problem Qualifiers (1) GI (gastrointestinal bleed): Qualified Code: K92.2 - Gastrointestinal hemorrhage, unspecified gastrointestinal hemorrhage type Rubén Browne MD Nov 24, 2016 12:40
[2016-11-24] MEDS ORDERED: BISACODYL EC 5 MG TABEC PO ONE (13:00)
--- NOTE | 2016-11-24 13:05 | HHI.GIFU ---
GI Follow-up Note Consult Follow-up Subjective: Patient laying in bed comfortably, no further bleeding, enteroscopy yesterday di d not reveal any source of bleeding.Bleeding scan positive for small intestine, angiogram performed immediately after bleeding scan negative .He continues to have daily drop in hb and blood transfusion. He needs a repeat colonoscopy when bleeding stopped for better evaluation of colon-hopefully tomorrow.Currently on clear liquid . Objective: PHYSICAL EXAMINATION: Vitals signs stable No fever Vital Signs Date Time Temp Pulse Resp B/P Pulse Ox O2 Delivery O2 Flow Rate FiO2 11/24/16 08:40 99 21 11/24/16 08:00 97.3 73 18 130/79 100 11/24/16 05:27 68 164/77 HEENT: Pupils round and reactive to light; normocephalic; atraumatic; no jaundice. Throat is clear. NECK: Neck is supple, no JVD, no lymphadenopathy. CHEST: Chest is clear to auscultation and percussion. CARDIAC: Regular rate and rhythm with no murmur gallop or rubs. ABDOMEN: Soft, nondistended, nontender; no hepatosplenomegaly; bowel sounds are present in all four quadrants. EXTREMITIES: No clubbing, cyanosis, or edema. SKIN: Normal; no rash; no jaundice. 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 Available Data (labs, X- Rays, Procedues) : Laboratory Tests Test 11/22/16 11/22/16 11/23/16 11/23/16 14:29 15:36 01:40 02:25 Blood Type O POSITIVE Crossmatch Leukocyte-Reduced Leukocyte-Reduced Red Blood Red Blood Cells Cells Blood Bank Comment White Blood Count 4.7 TH/MM3 Red Blood Count 2.70 MIL/MM3 Hemoglobin 8.6 GM/DL 6.9 GM/DL Hematocrit 24.5 % 19.9 % Mean Corpuscular Volume 90.7 FL Mean Corpuscular Hemoglobin 31.9 PG Mean Corpuscular Hemoglobin 35.2 % Concent Red Cell Distribution Width 16.0 % Platelet Count 194 TH/MM3 Mean Platelet Volume 8.1 FL Neutrophils (%) (Auto) 70.5 % Lymphocytes (%) (Auto) 16.4 % Monocytes (%) (Auto) 12.0 % Eosinophils (%) (Auto) 0.5 % Basophils (%) (Auto) 0.6 % Neutrophils # (Auto) 3.3 TH/MM3 Lymphocytes # (Auto) 0.8 TH/MM3 Monocytes # (Auto) 0.6 TH/MM3 Eosinophils # (Auto) 0.0 TH/MM3 Basophils # (Auto) 0.0 TH/MM3 CBC Comment DIFF FINAL Differential Comment Sodium Level 139 MEQ/L Potassium Level 4.1 MEQ/L Chloride Level 100 MEQ/L Carbon Dioxide Level 29.3 MEQ/L Anion Gap 10 MEQ/L Blood Urea Nitrogen 49 MG/DL Creatinine 5.06 MG/DL Estimat Glomerular Filtration 12 ML/MIN Rate Random Glucose 87 MG/DL Calcium Level 8.1 MG/DL Phosphorus Level 3.4 MG/DL Test 11/23/16 11/23/16 11/23/16 11/23/16 03:43 06:22 13:00 18:44 Blood Type O POSITIVE Antibody Screen NEGATIVE Hemoglobin 7.6 GM/DL 8.5 GM/DL 7.4 GM/DL Hematocrit 21.7 % 24.8 % 21.6 % Fibrinogen 275 mg/dL Iron Level 54 MCG/DL Total Iron Binding Capacity 206 MCG/DL Percent Iron Saturation 26.2 % Test 11/24/16 11/24/16 11/24/16 00:00 00:36 09:34 Hemoglobin 6.7 GM/DL 9.6 GM/DL Hematocrit 18.9 % 27.6 % Blood Type O POSITIVE Crossmatch Leukocyte-Reduced Red Blood Cells Blood Bank Comment ASSESSMENT/PLAN: recurrent gi bleeding possible small intestine, but colon was not properly evalauted due to presence of blood and stool on all studies anemia secondary of gi bleeding-s/p prbc Recommendations clear liquid today npo after midnight attempt repeat colonoscopy in am capsule endoscopy op if colonoscopy negative and continues to bleed consider double balloon enteroscopy tertiary center /hematology consult transfuse prn monitor hb/ht closely It was a pleasure seeing Johnathon Sage Thank you for this consult. Entered by: Jolanta Gonzales MD Nov 24, 2016 13:05
[2016-11-24 13:21] LABS: HEMATOCRIT 26.6 % (39.0-51.0); REVIEW FLAG FINAL
[2016-11-24 18:47] LABS: HEMATOCRIT 25.3 % (39.0-51.0); REVIEW FLAG FINAL
[2016-11-24] MEDS: guanFACINE HCL 1 MG TAB PO SCH (20:48)
--- NOTE | 2016-11-24 22:23 | HHI.PR ---
Subjective Subjective Notes DAILY PROGRESS NOTE FOR SURGICAL ATTENDING, DR. MELVA BAHENA Patient feels better No more blood from rectum Objective Vitals/I&O Vital Signs Date Time Temp Pulse Resp B/P Pulse Ox O2 Delivery O2 Flow Rate FiO2 11/24/16 21:03 96.1 70 17 174/96 100 11/24/16 08:40 21 11/22/16 19:30 Room Air 11/20/16 21:00 2 Labs Laboratory Tests Test 11/24/16 11/24/16 11/24/16 11/24/16 00:00 00:36 09:34 13:00 Hemoglobin 6.7 9.6 9.4 Hematocrit 18.9 27.6 26.6 Blood Type O POSITIVE Crossmatch Leukocyte-Reduced Red Blood Cells Blood Bank Comment Test 11/24/16 17:53 Hemoglobin 8.8 Hematocrit 25.3 Radiology Last Impressions GI Bleed Scan Nuclear Medicine 11/22/16 0000 Signed Impressions: Service Date/Time: Tuesday, November 22, 2016 16:09 - CONCLUSION: Activity on the left side which has the appearance of small bowel peristalsis most likely the site of the patient's GI bleeding. Carrie Christine MD Abdominal Angiography 11/22/16 0000 Signed Impressions: Service Date/Time: Tuesday, November 22, 2016 20:04 - CONCLUSION: No active source of hemorrhage or abnormal vessel identified for embolization. Kendall Jonas Jr., MD Cardiovascular: Regular Lungs: Clear Abdomen: Non-distended, Non-tender Extremities: Perfused A/P Problem List: (1) GI bleed (2) GI (gastrointestinal bleed) (3) Anemia Assessment and Plan 61-year-old gentleman with a GI bleed no source seen on upper and lower GI Questionable bleeding and small bowel seen on bleeding scan We'll obtain Meckel scan to rule out bleeding Meckel's diverticuli Problem Qualifiers (1) GI (gastrointestinal bleed): Qualified Code: K92.2 - Gastrointestinal hemorrhage, unspecified gastrointestinal hemorrhage type Melva Bahena MD Nov 24, 2016 22:23
[2016-11-25] VITALS (8 sets, daily range): BP systolic 152–194; BP diastolic 72–93; PULSE 66–82; RESP 17–20; TEMP 95.8–97.4; O2SAT 93–100
[2016-11-25 00:46] LABS: HEMATOCRIT 24.6 % (39.0-51.0); REVIEW FLAG FINAL
[2016-11-25] MEDS: CEPHALEXIN MONOHYDRATE 500 MG CAP PO SCH ×3 (04:11→20:00)
[2016-11-25] MEDS: ACYCLOVIR 800 MG TAB PO SCH ×5 (05:54→20:59)
--- NOTE | 2016-11-25 07:14 | HHI.PR ---
Subjective Remarks Date of service 11/24/16. Late entry. Patient seen the morning of 11/24/16. - Patient says he feels well today. No abdominal pain. Denies any chest pain or shortness of breath Discussed with Dr. Marx. Bleeding on scan. Surgical evaluation appreciated. Objective Vital Signs Date Time Temp Pulse Resp B/P Pulse Ox O2 Delivery O2 Flow Rate FiO2 11/25/16 04:57 66 152/88 11/25/16 04:08 97.4 66 17 194/93 100 11/25/16 01:47 67 173/72 11/25/16 00:37 67 185/85 11/25/16 00:03 96.3 71 18 181/88 99 11/24/16 21:03 96.1 70 17 174/96 100 11/24/16 20:00 70 11/24/16 16:00 96.6 76 17 164/84 96 11/24/16 12:00 96.8 82 17 138/80 95 11/24/16 08:40 99 21 11/24/16 08:00 97.3 73 18 130/79 100 I/O 11/24/16 11/24/16 11/24/16 11/25/16 11/25/16 11/25/16 07:00 15:00 23:00 07:00 15:00 23:00 Intake Total 581 ml 1200 ml 120 ml Balance 581 ml 1200 ml 120 ml Intake Oral 581 ml 1200 ml IV Total 120 ml # Voids 2 3 2 # Bowel Movements 2 Result Diagram: 11/25/16 0020 11/23/16 0140 Objective Remarks GENERAL: patient sitting up in bed. Appears comfortable. Alert and oriented x 3. Exam unchanged from day prior. SKIN: Warm and dry. AV fistula left arm. HEAD: Normocephalic. EYES: No scleral icterus. No injection or drainage. NECK: Supple, trachea midline. No JVD. CARDIOVASCULAR: Regular rate and rhythm without murmurs, gallops, or rubs. RESPIRATORY: Breath sounds equal bilaterally. No accessory muscle use. GASTROINTESTINAL: Abdomen soft, non-tender, nondistended. MUSCULOSKELETAL: No cyanosis, or edema. BACK: Nontender without obvious deformity. No CVA tenderness. A/P Assessment and Plan //Suspected lower GI bleed Acute on chronic anemia Patient continues comfortable. Continue every 4 hour hemoglobin 11/21Transfuse 2 units of rbc's today. Lasix given. Patient apparently making decent urine. -11/22. Has used 2 units RBCs today. -11/24. Transfuse 2 units. Continue to monitor closely. Gastroenterology following. Appreciate assistance //ESRD. Nephrology following for dialysis. Appreciate assistance. Prophylaxis. SCDs. Hold anticoagulation secondary to GI bleed. Discharge Planning continued monitoring for lower GI bleed. Pacheco Salgado MD Nov 25, 2016 07:14
[2016-11-25 07:58] LABS: BASOPHIL % 0.7 % (0.0-2.0); EOSINOPHIL # 0.1 TH/MM3 (0-0.4); EOSINOPHIL % 1.3 % (0.0-4.0); HEMO FLAGS DIFF FINAL; LYMPHOCYTE # 0.8 TH/MM3 (1.0-4.8); MEAN CELL VOLUME 88.6 FL (80.0-100.0); MEAN CORPUSCULAR HEMOGLOBIN 30.8 PG (27.0-34.0); MEAN CORPUSCULAR HGB CONC 34.8 % (32.0-36.0); MONO % 10.3 % (0.0-8.0); NEUT % 69.7 % (16.0-70.0); PLATELET COUNT 129 TH/MM3 (150-450); RED BLOOD COUNT 2.94 MIL/MM3 (4.50-5.90); RED CELL DISTRIBUTION WIDTH 17.1 % (11.6-17.2); WHITE BLOOD COUNT 4.3 TH/MM3 (4.0-11.0)
[2016-11-25] MEDS: PANTOPRAZOLE INJ 80 MG in SODIUM CHLORIDE 0.9% INJ 100 ML IV SCH ×2 (08:00→17:28)
[2016-11-25] MEDS: SEVELAMER CARBONATE 800 MG TAB PO SCH ×3 (08:00→17:28)
[2016-11-25 08:11] LABS: BICARBONATE 25.4 MEQ/L (21.0-32.0); MAGNESIUM 1.8 MG/DL (1.5-2.5); POTASSIUM 4.7 MEQ/L (3.5-5.1)
[2016-11-25] MEDS ORDERED: INSULIN HUMAN REGULAR 1,000 UNITS/10 ML VIAL SQ PRN (08:15)
[2016-11-25] MEDS ORDERED: LACTATED RINGER'S 1000 ML IV SCH (08:15)
[2016-11-25] MEDS ORDERED: METOPROLOL TARTRATE 25 MG TAB PO PRN (08:15)
[2016-11-25] MEDS ORDERED: SODIUM CHLORID 0.9% 500 ML IV SCH (08:15)
[2016-11-25] MEDS: FUROSEMIDE 80 MG TAB PO SCH (09:00)
[2016-11-25] MEDS: SODIUM CHLORIDE 0.9% FLUSH 5 ML FLUSH FLUSH SCH ×2 (09:00→20:58)
[2016-11-25] MEDS: CINACALCET HYDROCHLORIDE 30 MG TAB PO SCH (09:00)
[2016-11-25] MEDS: VITAMIN B CMPLX/VITC/FOLIC AC CAP PO SCH (09:00)
--- NOTE | 2016-11-25 09:14 | HHI.NPPN ---
Subjective General Problems: Anemia Renal Failure: Chronic, End Stage Renal Disease Interval History Seen in preparation of dialysis. To have colonoscopy this morning. No specific complaints today. Review of Systems General Constitutional: Fatigue Gastrointestinal Gastrointestinal: Blood/Tarry Stools Objective Data Data 11/24/16 11/25/16 19:00 07:00 Intake Total 1200 ml 120 ml Balance 1200 ml 120 ml Intake Oral 1200 ml IV Total 120 ml # Voids 3 2 # Bowel Movements 2 Vital Signs Date Time Temp Pulse Resp B/P Pulse Ox O2 Delivery O2 Flow Rate FiO2 11/25/16 04:57 66 152/88 11/25/16 04:08 97.4 66 17 194/93 100 11/25/16 01:47 67 173/72 11/25/16 00:37 67 185/85 11/25/16 00:03 96.3 71 18 181/88 99 11/24/16 21:03 96.1 70 17 174/96 100 11/24/16 20:00 70 11/24/16 16:00 96.6 76 17 164/84 96 11/24/16 12:00 96.8 82 17 138/80 95 -: 11/25/16 0644 11/25/16 0644 Physical Exam General Appearance: No Acute Distress, Comfortable, Malnourished Ears & Nose Ears & Nose Exam: Tympanic Membranes Normal Neck Neck Exam: Neck Supple Pulmonary Resp Exam: Clear Bilaterally, Breath Sounds Equal Cardiology CV Exam: Regular, Normal Sinus Rhythm Gastrointestinal/Abdomen GI Exam: Non-Tender, Bowel Sounds Present, Positive Bowel Movement Musculoskeletal MS Exam: Joints Intact, Normal Tone Integumentary Skin Exam: Clear, Warm, Dry, Intact Extremeties Extremities Exam: No Edema, Pedal Pulses Palpable Neurologic Neuro Exam: Alert, Awake, Oriented, Speech Clear, Moving All Extremities Psychiatric Psych Exam: Appropriate Responses Assessment/Plan Discussed Condition With: Patient Assessment Summary: Anemia of CKD, Hypertension, End Stage Renal Disease Problem List: (1) ESRD Plan: Continue HD on schedule, he was seen during dialysis on a 2K, 350 BFR, goal 2500 ml electrolytes uremarkable no acute renal concerns monitor AVF function high protein diet (2) GI (gastrointestinal bleed) Plan: GI and surgery following s/p colonoscopy and Angiogram, to have additional procedure today currently NPO (3) Anemia Plan: continue Epogen with dialysis. has been transfused multiple times since admission due to GI bleed monitor hemoglobin, no evidence of iron deficiency (4) Metabolic bone disease Plan: continue Renvela, monitor phosphorus periodically (5) Hypertension, benign Plan: Blood pressure is acceptable continue current medications Problem Qualifiers (1) GI (gastrointestinal bleed): Qualified Code: K92.2 - Gastrointestinal hemorrhage, unspecified gastrointestinal hemorrhage type Sharron Lebron Nov 25, 2016 09:13
[2016-11-25] MEDS ORDERED: MAGNESIUM CITRATE SOLN 300 ML BTL PO ONE ×2 (12:00→18:00)
[2016-11-25] MEDS: EPOETIN ALFA 10,000 UNITS/ML VIAL IV PRN (12:31)
--- NOTE | 2016-11-25 13:42 | PD.PROCEDR ---
GI Procedure REFERRING PHYSICIAN Dr. Salgado PROCEDURE PERFORMED Colonoscopy with snare polypectomy INDICATION FOR PROCEDURE GI bleed PROCEDURE: The procedure, risks and benefits were discussed with Mr. Sage and informed consent was obtained. Anesthesia sedated him with Diprivan. He was placed in the left lateral decubitus position. Colonoscopy: The Pentax videoscope was introduced through the rectum and advanced to cecum where the ileocecal valve and appendiceal orifice were identified. Retroflexion was performed in the rectum. Colonic prep was fair FINDINGS: Colonic withdrawal time greater than 6 minutes as the scope was slowly withdrawn colonic mucosa was carefully inspected the patient was noted to have a semi-pedunculated polyp in the sigmoid region this was excised using hot snare technique this was retrieved further evaluation otherwise colonic examination was unremarkable no obvious diverticuli seen in the retroflexion was also unremarkable so as rectal examination ESTIMATED BLOOD LOSS: None SPECIMENS REMOVED: Colon polyp COMPLICATIONS: None IMPRESSION: Colon polyp Otherwise normal colonoscopy PLAN: Await pathology Recommend small bowel follow-through Recommend outpatient capsule endoscopy Continue with current supportive care Monitor labs and transfuse as needed Colonoscopy in 5 years Jean-Pierre Giles MD Nov 25, 2016 13:42
[2016-11-25] MEDS ORDERED: PROPOFOL 200 MG/20 ML AMP IV ONE (15:51)
[2016-11-25] MEDS ORDERED: DO NOT ADM ANY ANTICOAGULANT DRUGS XX PRN (16:45)
--- NOTE | 2016-11-25 17:05 | RADRPT ---
EXAM DATE/TIME: 11/25/2016 15:16 [facility] COMPARISON: CT ABDOMEN & PELVIS W/O CONTRAST, November 11, 2016, 3:47. INDICATIONS : Post colonoscopy, anemia, GI bleed. FLUORO TIME: 0 minutes IMAGE COUNT: CONTRAST: Entero Vu 24% Barium Sulfate (24% w/v, 20% w/w) IMAGING TIME(S): 15 min, 30 min, 45 min, 1 hr, 1.5 hrs MEDICAL HISTORY : None. SURGICAL HISTORY : Inguinal hernia repair. ENCOUNTER: Initial ACUITY: 1 day PAIN SCORE: 0/10 LOCATION: Bilateral abdomen. FINDINGS: Preliminary film is unremarkable. The stomach is grossly unremarkable. Examination of the small bowel demonstrates normal mucosal pattern involving the jejunum and ileum. There is no evidence of mass or obstruction. No intraluminal filling defects are identified. Small bowel transit time is normal at 90 minutes. Fluoroscopy of the abdomen and terminal ileum demonstrat es no abnormality. CONCLUSION: Unremarkable small bowel examination. Daniel Jacobsen MD on November 25, 2016 at 17:01 Board Certified Radiologist. This report was verified electronically.
[2016-11-25] MEDS: BISACODYL EC 5 MG TABEC PO SCH ×2 (18:00→20:58)
--- NOTE | 2016-11-25 18:49 | HHI.PR ---
Subjective Remarks says he is feeling well. Denies any chest pain or shortness of breath. Denies any bleeding. Objective Vital Signs Date Time Temp Pulse Resp B/P Pulse Ox O2 Delivery O2 Flow Rate FiO2 11/25/16 14:06 77 16 127/75 97 11/25/16 13:55 80 16 114/69 98 11/25/16 13:43 98.0 92 16 93/72 99 11/25/16 06:55 95.8 82 20 159/93 100 11/25/16 04:57 66 152/88 11/25/16 04:08 97.4 66 17 194/93 100 11/25/16 01:47 67 173/72 11/25/16 00:37 67 185/85 11/25/16 00:03 96.3 71 18 181/88 99 11/24/16 21:03 96.1 70 17 174/96 100 11/24/16 20:00 70 I/O 11/24/16 11/24/16 11/24/16 11/25/16 11/25/16 11/25/16 07:00 15:00 23:00 07:00 15:00 23:00 Intake Total 581 ml 1200 ml 120 ml 400 ml Output Total 3000 ml Balance 581 ml 1200 ml 120 ml -2600 ml Intake Oral 581 ml 1200 ml IV Total 120 ml Other 400 ml Hemodialysis 3000 ml # Voids 2 3 2 # Bowel Movements 2 Result Diagram: 11/25/16 0644 11/25/16 0644 Imaging Last Impressions Small Bowel X-Ray 11/25/16 0000 Signed Impressions: Service Date/Time: Friday, November 25, 2016 15:16 - CONCLUSION: Unremarkable small bowel examination. Daniel Jacobsen MD GI Bleed Scan Nuclear Medicine 11/22/16 0000 Signed Impressions: Service Date/Time: Tuesday, November 22, 2016 16:09 - CONCLUSION: Activity on the left side which has the appearance of small bowel peristalsis most likely the site of the patient's GI bleeding. Carrie Christine MD Abdominal Angiography 11/22/16 0000 Signed Impressions: Service Date/Time: Tuesday, November 22, 2016 20:04 - CONCLUSION: No active source of hemorrhage or abnormal vessel identified for embolization. Kendall Jonas Jr., MD Objective Remarks GENERAL: patient lying in bed. Appears comfortable. Alert and oriented x 3. SKIN: Warm and dry. AV fistula left arm. HEAD: Normocephalic. EYES: No scleral icterus. No injection or drainage. NECK: Supple, trachea midline. No JVD. CARDIOVASCULAR: Regular rate and rhythm without murmurs, gallops, or rubs. RESPIRATORY: Breath sounds equal bilaterally. No accessory muscle use. GASTROINTESTINAL: Abdomen soft, non-tender, nondistended. MUSCULOSKELETAL: No cyanosis, or edema. BACK: Nontender without obvious deformity. No CVA tenderness. A/P Assessment and Plan //Suspected lower GI bleed Acute on chronic anemia Patient continues comfortable. Continue every 4 hour hemoglobin 11/21Transfuse 2 units of rbc's today. Lasix given. Patient apparently making decent urine. -11/22. Has used 2 units RBCs today. -11/24. Transfuse 2 units. -11/25. Hemoglobin stable. Bleeding scan today. Appreciate GI and interventional radiology assistance. Continue to monitor closely. Gastroenterology following. Appreciate assistance //ESRD. Nephrology following for dialysis. Appreciate assistance. Prophylaxis. SCDs. Hold anticoagulation secondary to GI bleed. Discharge Planning continued monitoring for lower GI bleed. Pacheco Salgado MD Nov 25, 2016 18:49
[2016-11-25] MEDS: guanFACINE HCL 1 MG TAB PO SCH (20:58)
[2016-11-25 22:18] LABS: HEMATOCRIT 24.7 % (39.0-51.0); REVIEW FLAG FINAL
[2016-11-26] VITALS: BP 136/60; PULSE 95; RESP 18; TEMP 96.3; O2SAT 98
[2016-11-26] MEDS: CEPHALEXIN MONOHYDRATE 500 MG CAP PO SCH ×2 (04:18→12:05)
[2016-11-26] MEDS: PANTOPRAZOLE INJ 80 MG in SODIUM CHLORIDE 0.9% INJ 100 ML IV SCH ×2 (04:22→14:00)
[2016-11-26] MEDS: ACYCLOVIR 800 MG TAB PO SCH ×3 (05:07→14:00)
[2016-11-26 05:56] VITALS: BP 151/80; PULSE 78; RESP 18; TEMP 96.4; O2SAT 100
[2016-11-26 07:30] LABS: AUTOMATED NEUTROPHIL # 2.7 TH/MM3 (1.8-7.7); BASOPHIL % 0.6 % (0.0-2.0); EOSINOPHIL % 0.9 % (0.0-4.0); HEMO FLAGS DIFF FINAL; LYMPH % 13.7 % (9.0-44.0); LYMPHOCYTE # 0.5 TH/MM3 (1.0-4.8); MEAN CELL VOLUME 90.7 FL (80.0-100.0); MEAN CORPUSCULAR HEMOGLOBIN 30.8 PG (27.0-34.0); MEAN CORPUSCULAR HGB CONC 33.9 % (32.0-36.0); MONO % 12.2 % (0.0-8.0); NEUT % 72.6 % (16.0-70.0); PLATELET COUNT 129 TH/MM3 (150-450); RED BLOOD COUNT 2.53 MIL/MM3 (4.50-5.90); RED CELL DISTRIBUTION WIDTH 17.3 % (11.6-17.2); WHITE BLOOD COUNT 3.7 TH/MM3 (4.0-11.0)
[2016-11-26 07:56] LABS: BICARBONATE 27.7 MEQ/L (21.0-32.0); POTASSIUM 4.1 MEQ/L (3.5-5.1)
[2016-11-26 08:00] VITALS: BP 131/86; PULSE 85; RESP 19; TEMP 96.6; O2SAT 95
[2016-11-26 08:30] VITALS: O2SAT 97
[2016-11-26] MEDS: SEVELAMER CARBONATE 800 MG TAB PO SCH ×3 (08:33→14:16)
[2016-11-26] MEDS: FUROSEMIDE 80 MG TAB PO SCH (08:33)
[2016-11-26] MEDS: VITAMIN B CMPLX/VITC/FOLIC AC CAP PO SCH (08:33)
[2016-11-26] MEDS: CINACALCET HYDROCHLORIDE 30 MG TAB PO SCH (08:33)
[2016-11-26] MEDS: SODIUM CHLORIDE 0.9% FLUSH 5 ML FLUSH FLUSH SCH (09:00)
--- NOTE | 2016-11-26 09:21 | HHI.GIFU ---
Subjective Remarks Sitting on side of bed. States he is ready to go home. No further bleeding. Tolerating diet. No complaints. (Cassia Peterson) Objective Vitals I&O Vital Signs Date Time Temp Pulse Resp B/P Pulse Ox O2 Delivery O2 Flow Rate FiO2 11/26/16 08:00 96.6 85 19 131/86 95 11/26/16 05:56 96.4 78 18 151/80 100 11/26/16 00:00 96.3 95 18 136/60 98 11/25/16 23:30 77 11/25/16 21:00 96.0 72 18 164/84 93 11/25/16 14:06 77 16 127/75 97 11/25/16 13:55 80 16 114/69 98 11/25/16 13:43 98.0 92 16 93/72 99 I/O 11/25/16 11/25/16 11/25/16 11/26/16 11/26/16 11/26/16 07:00 15:00 23:00 07:00 15:00 23:00 Intake Total 120 ml 400 ml Output Total 3000 ml Balance 120 ml -2600 ml IV Total 120 ml Other 400 ml Hemodialysis 3000 ml # Voids 2 1 2 Laboratory Laboratory Tests Test 11/25/16 11/26/16 21:25 06:45 Hemoglobin 8.6 7.8 Hematocrit 24.7 23.0 White Blood Count 3.7 Red Blood Count 2.53 Mean Corpuscular Volume 90.7 Mean Corpuscular Hemoglobin 30.8 Mean Corpuscular Hemoglobin 33.9 Concent Red Cell Distribution Width 17.3 Platelet Count 129 Mean Platelet Volume 8.3 Neutrophils (%) (Auto) 72.6 Lymphocytes (%) (Auto) 13.7 Monocytes (%) (Auto) 12.2 Eosinophils (%) (Auto) 0.9 Basophils (%) (Auto) 0.6 Neutrophils # (Auto) 2.7 Lymphocytes # (Auto) 0.5 Monocytes # (Auto) 0.5 Eosinophils # (Auto) 0.0 Basophils # (Auto) 0.0 CBC Comment DIFF FINAL Differential Comment Sodium Level 136 Potassium Level 4.1 Chloride Level 97 Carbon Dioxide Level 27.7 Anion Gap 11 Blood Urea Nitrogen 38 Creatinine 5.80 Estimat Glomerular Filtration 10 Rate Random Glucose 90 Calcium Level 7.7 Imaging Last Impressions Small Bowel X-Ray 11/25/16 0000 Signed Impressions: Service Date/Time: Friday, November 25, 2016 15:16 - CONCLUSION: Unremarkable small bowel examination. Daniel Jacobsen MD GI Bleed Scan Nuclear Medicine 11/22/16 0000 Signed Impressions: Service Date/Time: Tuesday, November 22, 2016 16:09 - CONCLUSION: Activity on the left side which has the appearance of small bowel peristalsis most likely the site of the patient's GI bleeding. Carrie Christine MD Abdominal Angiography 11/22/16 0000 Signed Impressions: Service Date/Time: Tuesday, November 22, 2016 20:04 - CONCLUSION: No active source of hemorrhage or abnormal vessel identified for embolization. Kendall Jonas Jr., MD Physical Exam HEENT: Normocephalic; atraumatic; no jaundice. CHEST: CTA CARDIAC: RRR ABDOMEN: Soft, nondistended, nontender; no hepatosplenomegaly; bowel sounds are present in all four quadrants. EXTREMITIES: No clubbing, cyanosis, or edema. SKIN: Normal; no rash; no jaundice. 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 (Cassia Peterson [facility]) Assessment and Plan Plan ASSESSMENT: - Bloody Diarrhea, began yesterday at HD, had 3 episodes. He was hospitalized last week for n/v/hematochezia and was evaluated with EGD (11/11/16)---> There was LA Class A esophagitis noted, there was erythematous gastritis in the gastric antrum, duodenal inflammation was found in the bulb and second portion of the duodenum, retroflexed views revealed a hiatal hernia. It was recommended that he undergo a colonoscopy, but the patient refused and insisted that this be done as outpatient and therefore he was discharged home, as his bleeding had stopped and he was clinically stable. Enteroscopy (11/23/16) ----> gastritis in the antrum, nodular mucosa in the duodenal bulb, scope \ advanced to mid jejunum, no blood up to that level, retroflex views revealed a hiatal hernia. Colonoscopy with snare polypectomy (11/25/16)---> Colon polyp. Pathology pending. Small bowel follow-through (11/25/16) revealed unremarkable small bowel examination. Patient has not had any further episodes of bleeding. He denies any GI complaints. He is tolerating his diet. He is anxious to go home. - Anemia, acute blood loss. Status post 6 units of packed red blood cells. H& H is 7.8/23.0 - ESRD on HD M/W/F - HTN, COPD per primary - Previous GIB, in January of 2006 and evaluated with a colonoscopy with multiple polypectomies (01/25/16) pathology revealed adenomatous polyps. After the procedure he had rectal bleeding and was further evaluated with a repeat colonoscopy (01/26/16)--> bleeding, no active source identified. He was then sent for an angiogram/embolization on (01/27/16)---> Active bleeding identified from the descending duodenum, presumably at site of an ulcer. 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 Both of these foci were embolized. PLAN: - Okay to DC home from GI standpoint - Await pathology - Renal diet as tolerated - Continue PPI - Capsule endoscopy as outpatient - Follow-up [facility] in 2 weeks - No NSAIDs, No ETOH - Pt seen and examined by Dr. Giles and myself and this note is written on his behalf (Cassia Peterson) Physician Comments Patient seen and examined Agree with above Continue with current supportive care Monitor labs (Jean-Pierre Giles MD) Cassia Peterson Nov 26, 2016 09:21 Jean-Pierre Giles MD Nov 26, 2016 22:17
--- NOTE | 2016-11-26 09:47 | HHI.NPPN ---
Subjective General Problems: Anemia Renal Failure: Chronic, End Stage Renal Disease Interval History Had colonoscopy with polypectomy yesterday. Dialyzed without incident. He is requesting discharge. (Sharron Lebron) Review of Systems General Constitutional: Fatigue (Sharron Lebron) Gastrointestinal Gastrointestinal: Blood/Tarry Stools (Sharron Lebron) Objective Data Data 11/25/16 11/26/16 19:00 07:00 Intake Total 400 ml Output Total 3000 ml Balance -2600 ml Other 400 ml Hemodialysis 3000 ml # Voids 3 Vital Signs Date Time Temp Pulse Resp B/P Pulse Ox O2 Delivery O2 Flow Rate FiO2 11/26/16 08:00 96.6 85 19 131/86 95 11/26/16 05:56 96.4 78 18 151/80 100 11/26/16 00:00 96.3 95 18 136/60 98 11/25/16 23:30 77 11/25/16 21:00 96.0 72 18 164/84 93 11/25/16 14:06 77 16 127/75 97 11/25/16 13:55 80 16 114/69 98 11/25/16 13:43 98.0 92 16 93/72 99 (Sharron Lebron) -: 11/26/16 0645 11/26/16 0645 Imaging Last 72 hours Impressions Small Bowel X-Ray 11/25/16 0000 Signed Impressions: Service Date/Time: Friday, November 25, 2016 15:16 - CONCLUSION: Unremarkable small bowel examination. Daniel Jacobsen MD (Sharron Lebron) Physical Exam General Appearance: No Acute Distress, Comfortable, Malnourished (Sharron Lebron) Ears & Nose Ears & Nose Exam: Tympanic Membranes Normal (Sharron Lebron) Neck Neck Exam: Neck Supple (Sharron Lebron) Pulmonary Resp Exam: Clear Bilaterally, Breath Sounds Equal (Sharron Lebron) Cardiology CV Exam: Regular, Normal Sinus Rhythm (Sharron Lebron) Gastrointestinal/Abdomen GI Exam: Non-Tender, Bowel Sounds Present, Positive Bowel Movement (Sharron Lebron) Musculoskeletal MS Exam: Joints Intact, Normal Tone (Sharron Lebron) Integumentary Skin Exam: Clear, Warm, Dry, Intact (Sharron Lebron) Extremeties Extremities Exam: No Edema, Pedal Pulses Palpable (Sharron Lebron) Neurologic Neuro Exam: Alert, Awake, Oriented, Speech Clear, Moving All Extremities ( Sharron Lebron) Psychiatric Psych Exam: Appropriate Responses (Sharron Lebron) Assessment/Plan Discussed Condition With: Patient Assessment Summary: Anemia of CKD, Hypertension, End Stage Renal Disease Problem List: (1) ESRD Plan: Continue HD on schedule, he had full treatment yesterday electrolytes unremarkable no acute renal concerns monitor AVF function high protein diet he can resume outpatient HD arrangements if discharged today (2) GI (gastrointestinal bleed) Plan: GI and surgery following s/p colonoscopy and Angiogram, had polypectomy yesterday to have capsule endoscopy as outpatient, follow up stressed. currently NPO (3) Anemia Plan: given Epogen with dialysis. has been transfused multiple times since admission due to GI bleed monitor hemoglobin, no evidence of iron deficiency (4) Metabolic bone disease Plan: continue Renvela, monitor phosphorus periodically (5) Hypertension, benign Plan: Blood pressure is acceptable continue current medications (Sharron Lebron) Plan patient was seen and examined. Dialysis will be continued MWF. GI following. Underwent colonoscopy with polypectomy yesterday. Bleeding scan done today. ( Rubén Browne MD) Problem Qualifiers (1) GI (gastrointestinal bleed): Qualified Code: K92.2 - Gastrointestinal hemorrhage, unspecified gastrointestinal hemorrhage type Sharron Lebron Nov 26, 2016 09:47 Rubén Browne MD Nov 26, 2016 20:01
[2016-11-26] MEDS ORDERED: GLUCAGON 1 MG/ML VIAL ONE (10:37)
--- NOTE | 2016-11-26 12:59 | HHI.PR ---
Subjective Subjective Notes No complaints Objective Vitals/I&O Vital Signs Date Time Temp Pulse Resp B/P Pulse Ox O2 Delivery O2 Flow Rate FiO2 11/26/16 08:30 97 21 11/26/16 08:00 96.6 85 19 131/86 11/22/16 19:30 Room Air Labs Laboratory Tests Test 11/25/16 11/26/16 21:25 06:45 Hemoglobin 8.6 7.8 Hematocrit 24.7 23.0 White Blood Count 3.7 Red Blood Count 2.53 Mean Corpuscular Volume 90.7 Mean Corpuscular Hemoglobin 30.8 Mean Corpuscular Hemoglobin 33.9 Concent Red Cell Distribution Width 17.3 Platelet Count 129 Mean Platelet Volume 8.3 Neutrophils (%) (Auto) 72.6 Lymphocytes (%) (Auto) 13.7 Monocytes (%) (Auto) 12.2 Eosinophils (%) (Auto) 0.9 Basophils (%) (Auto) 0.6 Neutrophils # (Auto) 2.7 Lymphocytes # (Auto) 0.5 Monocytes # (Auto) 0.5 Eosinophils # (Auto) 0.0 Basophils # (Auto) 0.0 CBC Comment DIFF FINAL Differential Comment Sodium Level 136 Potassium Level 4.1 Chloride Level 97 Carbon Dioxide Level 27.7 Anion Gap 11 Blood Urea Nitrogen 38 Creatinine 5.80 Estimat Glomerular Filtration 10 Rate Random Glucose 90 Calcium Level 7.7 Radiology Last Impressions GI Bleed Scan Nuclear Medicine 11/22/16 0000 Signed Impressions: Service Date/Time: Tuesday, November 22, 2016 16:09 - CONCLUSION: Activity on the left side which has the appearance of small bowel peristalsis most likely the site of the patient's GI bleeding. Carrie Christine MD Abdominal Angiography 11/22/16 0000 Signed Impressions: Service Date/Time: Tuesday, November 22, 2016 20:04 - CONCLUSION: No active source of hemorrhage or abnormal vessel identified for embolization. Kendall Jonas Jr., MD Abdomen: Non-distended, Non-tender A/P Problem List: (1) GI bleed (2) GI (gastrointestinal bleed) (3) Anemia Assessment and Plan GI bleeding, persistent, undetermined source Colonoscopy did not show source of bleeding in colon Plan: Meckel's scan today Following with you Problem Qualifiers (1) GI (gastrointestinal bleed): Qualified Code: K92.2 - Gastrointestinal hemorrhage, unspecified gastrointestinal hemorrhage type Kyle Schulz MD Nov 26, 2016 12:59
--- NOTE | 2016-11-26 13:10 | RADRPT ---
EXAM DATE/TIME: 11/26/2016 10:39 [facility] COMPARISON: No previous studies available for comparison. INDICATIONS : Hemorrhage. DOSE: 5 mCi Tc99m Pertechnetate MEDICATION: 1.0 mg Glucagon IV at 10 minutes MEDICAL HISTORY : Hypertension. Skin cancer. SURGICAL HISTORY : Neck surgery, fistula repair, hernia repair and stomach surgery. ENCOUNTER: Initial ACUITY: 1 week PAIN SCALE: 0/10 LOCATION: Abdomen. TECHNIQUE: Radiotracer was injected. Distribution phase dynamic scanning was accomplished. Glucagon was administ ered and delayed scanning was accomplished with spot imaging in multiple projections over the abdomen . FINDINGS: ABNORMAL FOCI: None. OTHER: Negative. CONCLUSION: Unremarkable Meckel scan. Jaylen Sky MD on November 26, 2016 at 13:08 Board Certified Radiologist. This report was verified electronically.
--- NOTE | 2016-12-31 10:16 | HHI.DS ---
Discharge Summary Admission Date Nov 21, 2016 at 02:28 Discharge Date: Nov 26, 2016 Admitting Diagnosis hematochezia (1) GI (gastrointestinal bleed) ICD Code: K92.2 (2) Anemia ICD Code: D64.9 (3) ESRD Procedures EGD, Colonoscopy, snare polypectomy. tubular adenoma Brief History - From Admission History from patient, ER physician communication, and review of medical records. Patient is known to me from his prior hospitalization in December 2015. He is somewhat of a poor historian. He does know his medical issues but he has a convoluted way of describing it. He states that he came from there dialysis center because once he finished dialysis yesterday he felt something was bothering his stomach and immediately after that he had a bright red blood gush of blood coming out. He stated this was soaking all his pants and he had to leave that at the dialysis center. He was also having lightheadedness after this episode. He called the staff members and they finally called 911. He reports he was given heparin over there. However he states that his bleeding is not because of this heparin and he knew it was from his stomach itself because of his prior episodes. Patient has history of cirrhosis per records which was not really biopsies. He did have several colonoscopies done previously. His latest admission was just this month. He did have workup which finally revealed angiodysplasia for which he had embolization done by IR. According to the notes, patient was also advised to have repeat colonoscopy which they somewhat planned to be done as an outpatient. Patient states he has not gone for this appointment yet since discharge from hospital on November 12, 2016. Patient also is in end-stage renal disease patient on hemodialysis. His hemoglobin was quite stable on initial arrival. Subsequent serial hemoglobin and hematocrits were ordered. Apart from the above episode, patient denies any recent fever/nausea/vomiting/ diarrhea/urinary burning or pain on urination. He reports that although he is on dialysis, he is still making urine and making quite a lot of it every day. Denies any hematemesis/hematochezia/melena/hematuria. Imaging Last Impressions Meckel's Diverticulum Nuclear Medic 11/26/16 0000 Signed Impressions: Service Date/Time: Saturday, November 26, 2016 10:39 - CONCLUSION: Unremarkable Meckel scan. Jaylen Sky MD Small Bowel X-Ray 11/25/16 0000 Signed Impressions: Service Date/Time: Friday, November 25, 2016 15:16 - CONCLUSION: Unremarkable small bowel examination. Daniel Jacobsen MD GI Bleed Scan Nuclear Medicine 11/22/16 0000 Signed Impressions: Service Date/Time: Tuesday, November 22, 2016 16:09 - CONCLUSION: Activity on the left side which has the appearance of small bowel peristalsis most likely the site of the patient's GI bleeding. Carrie Christine MD Abdominal Angiography 11/22/16 0000 Signed Impressions: Service Date/Time: Tuesday, November 22, 2016 20:04 - CONCLUSION: No active source of hemorrhage or abnormal vessel identified for embolization. Kendall Jonas Jr., MD PE at Discharge GENERAL: sitting in edge of bed. NAD. AAOx3 SKIN: Warm and dry. HEAD: Normocephalic. EYES: No scleral icterus. No injection or drainage. NECK: Supple, trachea midline. No JVD. CARDIOVASCULAR: Regular rate and rhythm without murmurs, gallops, or rubs. RESPIRATORY: Breath sounds equal bilaterally. No accessory muscle use. GASTROINTESTINAL: Abdomen soft, non-tender, nondistended. MUSCULOSKELETAL: No cyanosis, or edema. BACK: Nontender without obvious deformity. No CVA tenderness. Pt update on day of discharge feeling well. no CP or SOB. wants to go home. Hospital Course Hemoglobin 6.9 on admission. patient required 4 units PRBCs. EGD ciolonoscopy with no signs of acute bleed, although polpectomy performed with tubular adenoma. Hg Stable, patient cleared byGI, and DC home. further studies , including RBC scan, meckels scan as above, negative. //Suspected lower GI bleed Acute on chronic anemia Patient continues comfortable. Continue every 4 hour hemoglobin 11/21Transfuse 2 units of rbc's today. Lasix given. Patient apparently making decent urine. -11/22. Has used 2 units RBCs today. -11/24. Transfuse 2 units. -11/25. Hemoglobin stable. Bleeding scan today. Appreciate GI and interventional radiology assistance. Continue to monitor closely. Gastroenterology following. Appreciate assistance 11/26 - hg stable. cleared by GI //ESRD. Nephrology following for dialysis. Appreciate assistance. Prophylaxis. SCDs. Hold anticoagulation secondary to GI bleed. Pt Condition on Discharge: Good Discharge Disposition: Discharge Home Discharge Time: <= 30 minutes Discharge Instructions DIET: Follow Instructions for: Renal Failure Diet Activities you can perform: Regular-No Restrictions Follow up Referrals: Gastroenterology - 2 Weeks @ [facility] - Next Day PCP Follow-up - 12/03/16 with Ivan Senior MD Surgical - 1 Week with Gumaro Bahena MD Continued Medications: Cinacalcet (Sensipar) 30 Mg Tab 30 MG PO DAILY #30 Ref 0 TAB Fluticasone Propionate (Nasal) (Allergy Nasal [place] 24 Ho) 50 Mcg/Act Spr 50 BID Furosemide (Lasix) 80 Mg Tab 80 MG PO DAILY #30 Ref 0 TAB Guanfacine (Guanfacine) 1 Mg Tab 1 MG PO HS Do not crush, chew or divide tablet. Take with a meal. Blood Pressure Management #30 Ref 0 TAB Pantoprazole (Pantoprazole) 40 Mg Tab 40 MG PO Q12HR gastritis Days 30 TAB Vitamin B Cmplx/Vit C/Folic AC (Nephro-Leyla Rx) 1 Tab 1 CAP PO DAILY vitamin #30 TAB ([Renalsoftgel ]) 1 CAP PO DAILY Pacheco Salgado MD Dec 31, 2016 10:16
== END 2016-11-26 14:32 | disposition home or self-care (01) | DRG 377 ==
LOC: NEPE 17:22 → NEDA 20:09 → NEDH 11-21 00:11 → OBSVTOIN 11-21 02:28 → N05A 11-21 14:40 → N03B 11-22 14:27 → N05A 11-22 21:20
PROVIDERS: ADMIT Internal Medicine; ATTEND Internal Medicine
PROC: 5A1D00Z (ICD-10-PCS; 2016-11-22)
PROC: 30233N1 Transfusion of Nonautologous Red Blood Cells into Peripheral Vein, Percutaneous Approach (ICD-10-PCS; 2016-11-22)
PROC: 0DJD8ZZ Inspection of Lower Intestinal Tract, Via Natural or Artificial Opening Endoscopic (ICD-10-PCS; principal; 2016-11-22 13:25)
PROC: 0DB98ZX Excision of Duodenum, Via Natural or Artificial Opening Endoscopic, Diagnostic (ICD-10-PCS; 2016-11-23)
PROC: 0DB68ZX Excision of Stomach, Via Natural or Artificial Opening Endoscopic, Diagnostic (ICD-10-PCS; 2016-11-23)
PROC: 5A1D00Z (ICD-10-PCS; 2016-11-23)
PROC: 30233N1 Transfusion of Nonautologous Red Blood Cells into Peripheral Vein, Percutaneous Approach (ICD-10-PCS; 2016-11-23)
PROC: 0DBN8ZZ Excision of Sigmoid Colon, Via Natural or Artificial Opening Endoscopic (ICD-10-PCS; 2016-11-25)
DX: K55.21 Angiodysplasia of colon with hemorrhage (principal); N18.6 End stage renal disease; R18.8 Other ascites; I50.9 Heart failure, unspecified; E46 Unspecified protein-calorie malnutrition; N25.81 Secondary hyperparathyroidism of renal origin; I12.0 Hypertensive chronic kidney disease with stage 5 chronic kidney disease or end stage renal disease; K29.70 Gastritis, unspecified, without bleeding; K20.9 Esophagitis, unspecified; D12.5 Benign neoplasm of sigmoid colon; K64.5 Perianal venous thrombosis; K57.90 Diverticulosis of intestine, part unspecified, without perforation or abscess without bleeding; K64.8 Other hemorrhoids; D63.1 Anemia in chronic kidney disease; J44.9 Chronic obstructive pulmonary disease, unspecified; Z99.2 Dependence on renal dialysis; G40.909 Epilepsy, unspecified, not intractable, without status epilepticus; M10.9 Gout, unspecified; Z87.11 Personal history of peptic ulcer disease; Z86.010 Personal history of colon polyps; F43.20 Adjustment disorder, unspecified; R42 Dizziness and giddiness; Z87.891 Personal history of nicotine dependence; R21 Rash and other nonspecific skin eruption; L29.9 Pruritus, unspecified; Z86.2 Personal history of diseases of the blood and blood-forming organs and certain disorders involving the immune mechanism; Z87.39 Personal history of other diseases of the musculoskeletal system and connective tissue; Z86.59 Personal history of other mental and behavioral disorders; Z85.828 Personal history of other malignant neoplasm of skin; Z87.448 Personal history of other diseases of urinary system
CPT/HCPCS: 36245; 36430; 74250; 75726; 75774; 76937; 78278; 78290; 80048; 80053; 80069; 83540; 83550; 83735; 84100; 85014; 85018; 85025; 85384; 85610; 85730; 86850; 86900; 86901; 86920; 88305; 88312; 90935; 93005; 96365; 96374; 99283; A9512; A9560; C1769; C1887; C1894; C9113; G0378; J1610; J1940; J3010; J7040; J7050; P9016; Q4081; Q9967

== ENCOUNTER 2016-12-09 11:18 | Inpatient (IN) | payer MEDICARE, OTHER ==
[2016-12-09] VITALS (7 sets, daily range): BP systolic 108–144; BP diastolic 69–82; PULSE 77–111; RESP 14–24; TEMP 97.8–98.4; O2SAT 96–100
[~2016-12-09] VITALS: Ht 188 cm; Wt 77.2 kg
[~2016-12-09 11:18] MED LIST changes: +FLUT1SPR22
--- NOTE | 2016-12-09 11:57 | PD ---
HPI Chief Complaint: GI Complaint Time Seen by Provider: 11:54 Travel History International Travel<30 days: No Contact w/Intl Traveler<30days: No Traveled to known affect area: No History of Present Illness HPI Patient is a 61-year-old male presenting to the emergency department for evaluation of rectal bleeding. Patient states he noticed dark red blood from his rectum at 3 AM this morning. He states he took 4 Protonix tablets that were 40 mg each to help stop the bleeding. He states that they gave him more than this while he was inpatient. He denies any abdominal pain but reports "gurgling". Patient is on hemodialysis for chronic renal failure, he is due for dialysis today. He has no other complaints at this time. PFSH Past Medical History Hx Anticoagulant Therapy: No Anemia: Yes Arthritis: Yes Autoimmune Disease: No Blood Disorders: No Bipolar Disorder: Yes Anxiety: No Depression: No Heart Rhythm Problems: No Cancer: Yes (SKIN) Cardiovascular Problems: Yes (HTN) High Cholesterol: No Chemotherapy: Yes Chest Pain: No Congestive Heart Failure: No COPD: No Cerebrovascular Accident: No Diabetes: No Dialysis: Yes (MON, WED, FRI) Diminished Hearing: No Endocrine: No Gastrointestinal Disorders: Yes (colonoscopy) Genitourinary: Yes Hypertension: Yes Immune Disorder: No Implanted Vascular Access Dvce: Yes Musculoskeletal: Yes Neurologic: No Psychiatric: No Reproductive: No Respiratory: No Immunizations Current: Yes Radiation Therapy: Yes Renal Failure: Yes Seizures: No Sickle Cell Disease: No Sleep Apnea: No Past Surgical History Abdominal Surgery: Yes (HERNIA REPAIR, STOMACH SURGERY) AICD: No Arteriovenous Shunt: No Body Medical Devices: DIALYSIS SHUNT IN LEFT ARM Cardiac Surgery: No Ear Surgery: No Endocrine Surgery: No Eye Surgery: No Genitourinary Surgery: No Hysterectomy: No Insulin Pump: No Joint Replacement: No Oral Surgery: No Pacemaker: No Thoracic Surgery: No Other Surgery: Yes (NECK SURGERY/TUMOR; L FISTULA, HERNIA REPAIR) Social History Alcohol Use: Yes Tobacco Use: Yes Substance Use: No Allergies-Medications (Allergen,Severity, Reaction): Coded Allergies: Haldol (Verified Allergy, Severe, SEIZURE, 12/09/16) Thorazine (Verified Allergy, Severe, SEIZURE, 12/09/16) Wellbutrin (Verified Allergy, Severe, SEIZURE, 12/09/16) Invega Sustenna (Verified Allergy, Unknown, 12/09/16) [place] (Verified Allergy, Unknown, 12/09/16) Risperdal (Verified Allergy, Unknown, 12/09/16) Valproic Acid (Verified Allergy, Unknown, 12/09/16) Reported Meds & Prescriptions Reported Meds & Active Scripts Active Keflex (Cephalexin) 500 Mg Cap 500 Mg PO Q8H Acyclovir 800 Mg Tab 800 Mg PO 5 TIMES A DAY 7 Days Nephro-Leyla Rx (Vitamin B Cmplx/Vit C/Folic AC) 1 Tab 1 Cap PO DAILY Pantoprazole (Pantoprazole Sodium) 40 Mg Tab 40 Mg PO Q12HR 30 Days Reported Allergy Nasal [place] 24 Ho (Fluticasone Propionate (Nasal)) 50 Mcg/Act Spr 50 BID Guanfacine (Guanfacine HCl) 1 Mg Tab 1 Mg PO HS Do not crush, chew or divide tablet. Take with a meal. Lasix (Furosemide) 80 Mg Tab 80 Mg PO DAILY Sensipar (Cinacalcet) 30 Mg Tab 30 Mg PO DAILY [Renalsoftgel ] 1 Cap PO DAILY Renvela (Sevelamer Carbonate) 800 Mg Tab 2,400 Mg PO DIRECTED Review of Systems Except as stated in HPI: all other systems reviewed are Neg Gastrointestinal: Positive: Hematochezia Physical Exam Narrative GENERAL: Well-developed, well-nourished, alert male. Resting comfortably in no acute distress. SKIN: Warm and dry. HEAD: Atraumatic. Normocephalic. EYES: Pupils equal and round. No scleral icterus. No injection or drainage. Pale conjunctiva. ENT: No nasal bleeding or discharge. Mucous membranes pink and moist. NECK: Trachea midline. No JVD. CARDIOVASCULAR: Regular rate and rhythm. 2/6 systolic murmur appreciated. RESPIRATORY: No accessory muscle use. Clear to auscultation. Breath sounds equal bilaterally. GASTROINTESTINAL: Abdomen soft, non-tender, nondistended. Hepatic and splenic margins not palpable. Positive bowel sounds, no rebound, no guarding. MUSCULOSKELETAL: No obvious deformities. No clubbing. No cyanosis. No edema. NEUROLOGICAL: Awake and alert. No obvious cranial nerve deficits. Motor grossly within normal limits. Normal speech. PSYCHIATRIC: Appropriate mood and affect; insight and judgment normal. Data Data Last Documented VS Vital Signs Date Time Temp Pulse Resp B/P Pulse Ox O2 Delivery O2 Flow Rate FiO2 12/09/16 11:19 98.0 107 14 112/69 98 Room Air Orders Complete Blood Count With Diff (12/09/16 11:52) Comprehensive Metabolic Panel (12/09/16 11:52) Prothrombin Time / Inr (Pt) (12/09/16 11:52) Act Partial Throm Time (Ptt) (12/09/16 11:52) Type And Screen (12/09/16 11:52) Labs Laboratory Tests Test 12/09/16 12:10 Prothrombin Time 10.2 SEC Prothromb Time International 0.9 RATIO Ratio Activated Partial 27.8 SEC Thromboplast Time Sodium Level 133 MEQ/L Potassium Level 4.9 MEQ/L Chloride Level 96 MEQ/L Carbon Dioxide Level 24.2 MEQ/L Anion Gap 13 MEQ/L Blood Urea Nitrogen 65 MG/DL Creatinine 8.34 MG/DL Estimat Glomerular Filtration 7 ML/MIN Rate Random Glucose 106 MG/DL Calcium Level 7.7 MG/DL Aspartate Amino Transf 25 U/L (AST/SGOT) Albumin 2.4 GM/DL Blood Type O POSITIVE MDM Medical Decision Making Medical Screen Exam Complete: Yes Emergency Medical Condition: Yes Medical Record Reviewed: Yes Interpretation(s) Vital Signs Date Time Temp Pulse Resp B/P Pulse Ox O2 Delivery O2 Flow Rate FiO2 12/09/16 11:19 98.0 107 14 112/69 98 Room Air Differential Diagnosis GI bleed versus anemia of chronic disease versus other Narrative Course Patient is a 61-year-old male presenting to emergency Department for evaluation of rectal bleeding that started 3 AM this morning. Patient has taken a total of 120 mg of oral Protonix to help stop the bleeding per his report. He has no other complaints at this time. Patient is mildly tachycardic, his vital signs are otherwise stable. Labs ordered and pending. Patient has a history of the same, he has had recent admissions for hematochezia. 11/22/16 patient had a GI bleed nuc med scan which revealed small bowel peristalsis which could be the site of the bleeding. He had a negative Langdon scan on 11/26, negative abdominal angiogram on 11/22/16 as well. Care patient will be transferred to provider in a medical bed when bed is available. Lisa Mosley Dec 09, 2016 11:57
[2016-12-09 12:29] LABS: AUTOMATED NEUTROPHIL # 3.2 TH/MM3 (1.8-7.7); BASOPHIL % 0.5 % (0.0-2.0); EOSINOPHIL # 0.1 TH/MM3 (0-0.4); EOSINOPHIL % 1.7 % (0.0-4.0); LYMPH % 15.6 % (9.0-44.0); LYMPHOCYTE # 0.7 TH/MM3 (1.0-4.8); MEAN CELL VOLUME 100.3 FL (80.0-100.0); MEAN CORPUSCULAR HEMOGLOBIN 34.1 PG (27.0-34.0); MONO % 9.8 % (0.0-8.0); NEUT % 72.4 % (16.0-70.0); PLATELET COUNT 160 TH/MM3 (150-450); RED BLOOD COUNT 1.86 MIL/MM3 (4.50-5.90); WHITE BLOOD COUNT 4.5 TH/MM3 (4.0-11.0)
[2016-12-09 12:36] LABS: APTT (PATIENT) 27.8 SEC (24.3-30.1); INTERNATIONAL NORMALIZED RATIO 0.9 RATIO; PROTHROMBIN TIME - PATIENT 10.2 SEC (9.8-11.6)
[2016-12-09 12:39] LABS: HEMO FLAGS DIFF FINAL
[2016-12-09 12:41] LABS: ANION GAP 13 MEQ/L (5-15); AST (GOT) 25 U/L (15-37); BICARBONATE 24.2 MEQ/L (21.0-32.0); BLOOD UREA NITROGEN 65 MG/DL (7-18); CHLORIDE 96 MEQ/L (98-107); GLOMERULAR FILTRATION RATE 7 ML/MIN (>89); POTASSIUM 4.9 MEQ/L (3.5-5.1); SODIUM (NA) 133 MEQ/L (136-145)
[2016-12-09 12:42] LABS: HEMATOCRIT 18.6 % (39.0-51.0)
[2016-12-09 12:44] LABS: ALKALINE PHOSPHATASE 201 U/L (45-117); ALT (GPT) 18 U/L (12-78); TOTAL BILIRUBIN ADULT 0.3 MG/DL (0.2-1.0)
[2016-12-09] MEDS ORDERED: METO50TA11 PO (13:02)
--- NOTE | 2016-12-09 13:10 | PD ---
Physical Exam Date Seen by Provider: Dec 09, 2016 Data Data Last Documented VS Vital Signs Date Time Temp Pulse Resp B/P Pulse Ox O2 Delivery O2 Flow Rate FiO2 12/09/16 12:53 77 24 144/80 100 Room Air 12/09/16 11:19 98.0 Orders Complete Blood Count With Diff (12/09/16 11:52) Comprehensive Metabolic Panel (12/09/16 11:52) Prothrombin Time / Inr (Pt) (12/09/16 11:52) Act Partial Throm Time (Ptt) (12/09/16 11:52) Type And Screen (12/09/16 11:52) Pantoprazole Inj (Protonix Inj) (12/09/16 14:00) Pantoprazole Inj (Protonix Inj) (12/09/16 14:00) Red Blood Cells (Rbc) (12/09/16 13:02) Blood Product Administration .UPON TRANSFUSION (12/09/16 13:02) Consult Nephrology (12/09/16 ) Gi Bleeding Scan (12/09/16 ) Consult Gastroenterology (12/09/16 ) Admit Order (Ed Use Only) (12/09/16 13:30) Labs Laboratory Tests Test 12/09/16 12/09/16 12:10 13:10 White Blood Count 4.5 TH/MM3 Red Blood Count 1.86 MIL/MM3 Hemoglobin 6.3 GM/DL Hematocrit 18.6 % Mean Corpuscular Volume 100.3 FL Mean Corpuscular Hemoglobin 34.1 PG Mean Corpuscular Hemoglobin 34.0 % Concent Red Cell Distribution Width 25.0 % Platelet Count 160 TH/MM3 Mean Platelet Volume 8.2 FL Neutrophils (%) (Auto) 72.4 % Lymphocytes (%) (Auto) 15.6 % Monocytes (%) (Auto) 9.8 % Eosinophils (%) (Auto) 1.7 % Basophils (%) (Auto) 0.5 % Neutrophils # (Auto) 3.2 TH/MM3 Lymphocytes # (Auto) 0.7 TH/MM3 Monocytes # (Auto) 0.4 TH/MM3 Eosinophils # (Auto) 0.1 TH/MM3 Basophils # (Auto) 0.0 TH/MM3 CBC Comment DIFF FINAL Differential Comment Prothrombin Time 10.2 SEC Prothromb Time International 0.9 RATIO Ratio Activated Partial 27.8 SEC Thromboplast Time Sodium Level 133 MEQ/L Potassium Level 4.9 MEQ/L Chloride Level 96 MEQ/L Carbon Dioxide Level 24.2 MEQ/L Anion Gap 13 MEQ/L Blood Urea Nitrogen 65 MG/DL Creatinine 8.34 MG/DL Estimat Glomerular Filtration 7 ML/MIN Rate Random Glucose 106 MG/DL Calcium Level 7.7 MG/DL Total Bilirubin 0.3 MG/DL Aspartate Amino Transf 25 U/L (AST/SGOT) Alanine Aminotransferase 18 U/L (ALT/SGPT) Alkaline Phosphatase 201 U/L Total Protein 6.0 GM/DL Albumin 2.4 GM/DL Blood Type O POSITIVE Antibody Screen NEGATIVE Crossmatch Leukocyte-Reduced Red Blood Cells Blood Bank Comment MDM Medical Record Reviewed: Yes Supervised Visit with MAIRA: Yes Interpretation(s) Vital Signs Date Time Temp Pulse Resp B/P Pulse Ox O2 Delivery O2 Flow Rate FiO2 12/09/16 12:53 77 24 144/80 100 Room Air 12/09/16 11:19 98.0 107 14 112/69 98 Room Air CBC & BMP Diagram 12/09/16 12:10 Narrative Course 61-year-old male with end-stage renal disease on hemodialysis every Friday, Friday, Friday, presents to the emergency room with c/o of melana. Patient reports that he went to the bathroom around 3AM and had "purple blood" come out with no stool. Reports that he was recently discharged from hospital with GI bleed. Patient with most likely melana at this time. GENERAL: nad, nontoxic SKIN: Warm and dry. HEAD: Atraumatic. Normocephalic. EYES: Pupils equal and round. No scleral icterus. No injection or drainage. ENT: No nasal bleeding or discharge. Mucous membranes pink and moist. NECK: Trachea midline. No JVD. CARDIOVASCULAR: Regular rate and rhythm. No murmur appreciated. RESPIRATORY: No accessory muscle use. Clear to auscultation. Breath sounds equal bilaterally. GASTROINTESTINAL: Abdomen soft, non-tender, nondistended. Exam performed with RN at bedside, heme positive stool MUSCULOSKELETAL: No obvious deformities. No clubbing. No cyanosis. No edema. NEUROLOGICAL: Awake and alert. No obvious cranial nerve deficits. Motor grossly within normal limits. Normal speech. PSYCHIATRIC: Appropriate mood and affect; insight and judgment normal. Call made to Dr. Giles with GI as he recently saw him for GI bleed Call made to Dr Jade with [facility] - plan to give patient blood with dialysis today. Patient will require admission Case reviewed with Dr. Marx with GI - reports that patient does have a small bleed in his small intestines - reports that historically, they were unable to find bleed. Request that stat bleeding scan at this time. Call made to interventional radiologist Case reviewed with Dr. Rob with [facility] patient to service Critical Care Narrative Aggregate critical care time was 30 minutes. Time to perform other separately billable procedures was not included in the critical care time. My time did not include minutes spent treating any other patients simultaneously or on activities that did not directly contribute to the patient's treatment. The services I provided to this patient were to treat and/or prevent clinically significant deterioration that could result in: , decompensation, deterioration I provided critical care services requiring my management, as noted below: Chart data review, documentation time, medication orders and management, vital sign assessments/reviewing monitor data, ordering and reviewing lab tests, ordering and interpreting/reviewing x-rays and diagnostic studies, care of the patient and discussion of the patient with the admitting physicians. case reviewed with interventional radiologist - will order ct angio for further workup and evaluation of gi bleed Diagnosis Primary Impression: GI bleed Qualified Code: K92.1 - Gastrointestinal hemorrhage with melena Additional Impression: Anemia Qualified Code: D64.9 - Anemia, unspecified type Admitting Information Admitting Physician Requests: Cristy Thorpe DO Dec 09, 2016 13:10
[2016-12-09] MEDS ORDERED: PANTOPRAZOLE INJ 80 MG in SODIUM CHLORIDE 0.9% INJ 35 ML IV ONE (14:00)
[2016-12-09] MEDS: PANTOPRAZOLE INJ 80 MG in SODIUM CHLORIDE 0.9% INJ 100 ML IV SCH (14:15)
[2016-12-09] MEDS ORDERED: SODIUM CHLOR 0.9% 1000 ML INJ 1,000 ML IV PRN ×3 (14:22)
--- NOTE | 2016-12-09 14:22 | PD.CONS ---
[facility] Service Nephrology Consult Requested By Reason for Consult ESRD on HD Primary Care Physician Ivan Senior MD History of Present Illness This is a 61 y/o male pt who dialyzes . He came for treatment of GI bleeding, lower, for which he has had in the past. His Hb was 6.3 on arrival, he is ordered PRBC for transfusion today. A bleeding scan was ordered, and will be performed shortly. He has no complaints, denies abdominal pain, nausea/ vomiting, fever/chills. He is a full code. PMH as outlined below, we were consulted for dialysis management. (Sharron Lebron) Review of Systems Constitutional: DENIES: Fatigue, Fever, Weight gain Gastrointestinal: COMPLAINS OF: Black stools, Bloody stools, DENIES: Abdominal pain, Constipation, Diarrhea, Nausea, Vomiting (Sharron Lebron) Past Family Social History Allergies: Coded Allergies: Haldol (Verified Allergy, Severe, SEIZURE, 12/09/16) Thorazine (Verified Allergy, Severe, SEIZURE, 12/09/16) Wellbutrin (Verified Allergy, Severe, SEIZURE, 12/09/16) Invega Sustenna (Verified Allergy, Unknown, 12/09/16) [place] (Verified Allergy, Unknown, 12/09/16) Risperdal (Verified Allergy, Unknown, 12/09/16) Valproic Acid (Verified Allergy, Unknown, 12/09/16) Past Medical History HTN ESRD on HD Anemia COPD Secondary Hyperparathyroidism Metabolic Bone Disorder Peptic ulcer disease Ascites Hx ETOH abuse History GI bleeding Multiple colon polyps- tubulovillous, tubular adenoma Duodenal ulcer Gastritis/esophagitis Campylobacter diarrhea Past Surgical History L arm AVF hernia repair neck surgery/tumor removal mulitple EGD/colonoscopy Reported Medications Keflex (Cephalexin) 500 Mg Cap 500 Mg PO Q8H Acyclovir 800 Mg Tab 800 Mg PO 5 TIMES A DAY 7 Days Nephro-Leyla Rx (Vitamin B Cmplx/Vit C/Folic AC) 1 Tab 1 Cap PO DAILY Pantoprazole (Pantoprazole Sodium) 40 Mg Tab 40 Mg PO Q12HR 30 Days Reported Allergy Nasal [place] 24 Ho (Fluticasone Propionate (Nasal)) 50 Mcg/Act Spr 50 BID Guanfacine (Guanfacine HCl) 1 Mg Tab 1 Mg PO HS Do not crush, chew or divide tablet. Take with a meal. Lasix (Furosemide) 80 Mg Tab 80 Mg PO DAILY Sensipar (Cinacalcet) 30 Mg Tab 30 Mg PO DAILY [Renalsoftgel ] 1 Cap PO DAILY Renvela (Sevelamer Carbonate) 800 Mg Tab 2,400 Mg PO DIRE Active Ordered Medications Current Medications Medications (Trade) Dose Ordered Sig/Shiela Route Start Time Stop Time Status Last Admin (Protonix Inj/NS Inj) 100 ml @ 10 mls/hr Q10H IV 12/09/16 14:00 Family History No family members with renal disorder Social History but does not live with retired independent with ADLs no smoking hx former heavy ETOH, denies use now full code (Sharron Lebron) Physical Exam Vital Signs Vital Signs Date Time Temp Pulse Resp B/P Pulse Ox O2 Delivery O2 Flow Rate FiO2 12/09/16 12:53 77 24 144/80 100 Room Air 12/09/16 11:19 98.0 107 14 112/69 98 Room Air Physical Exam Chronically ill appearing cachectic male in NAD, lying back in bed in no distress Lungs clear in upper polo, decreased in bases Cardiac: S1/S2, no murmurs, not tachycardic Abd: + ascites, generalized tenderness to palpation, bowel sounds x 4 quads Ext: 1+ lower extremity edema, pulses 2+ pedal LUE: AVF, + thrill/bruit Laboratory Laboratory Tests Test 12/09/16 12/09/16 12:10 13:10 White Blood Count 4.5 Red Blood Count 1.86 Hemoglobin 6.3 Hematocrit 18.6 Mean Corpuscular Volume 100.3 Mean Corpuscular Hemoglobin 34.1 Mean Corpuscular Hemoglobin 34.0 Concent Red Cell Distribution Width 25.0 Platelet Count 160 Mean Platelet Volume 8.2 Neutrophils (%) (Auto) 72.4 Lymphocytes (%) (Auto) 15.6 Monocytes (%) (Auto) 9.8 Eosinophils (%) (Auto) 1.7 Basophils (%) (Auto) 0.5 Neutrophils # (Auto) 3.2 Lymphocytes # (Auto) 0.7 Monocytes # (Auto) 0.4 Eosinophils # (Auto) 0.1 Basophils # (Auto) 0.0 CBC Comment DIFF FINAL Differential Comment Prothrombin Time 10.2 Prothromb Time International 0.9 Ratio Activated Partial 27.8 Thromboplast Time Sodium Level 133 Potassium Level 4.9 Chloride Level 96 Carbon Dioxide Level 24.2 Anion Gap 13 Blood Urea Nitrogen 65 Creatinine 8.34 Estimat Glomerular Filtration 7 Rate Random Glucose 106 Calcium Level 7.7 Total Bilirubin 0.3 Aspartate Amino Transf 25 (AST/SGOT) Alanine Aminotransferase 18 (ALT/SGPT) Alkaline Phosphatase 201 Total Protein 6.0 Albumin 2.4 Blood Type O POSITIVE Antibody Screen NEGATIVE Crossmatch Leukocyte-Reduced Red Blood Cells Blood Bank Comment (Sharron Lebron) Result Diagram: 12/09/16 1210 12/09/16 1210 Assessment and Plan Problem List: (1) ESRD Plan: Dialysis today and -- he has AVF that functions well monitor electrolytes no current dialysis concerns no IVF, high protein diet monitor fluid volume status, adjust UF as needed (2) Anemia Plan: To receive transfusion today with dialysis follow Hb also on Epogen with dialysis (3) GI bleed Plan: GI to follow, bleeding scan ordered for today given protonix (4) Hypertension, benign Plan: BP stable resume home medications (5) Metabolic bone disease Plan: Renvela with meals, follow phos level intermittently (Sharron Lebron) Assessment and Plan patient was seen and examined. Seen during dialysis. UF goal is 4 liters. On 2K. Patient has history of ETOH abuse, cirrhosis of the liver. Readmitted with GI bleeding. GI on the case. Note reviewed. Agree with above assessment and plan. (Rubén Browne MD) Problem Qualifiers (1) Anemia: Qualified Code: D64.9 - Anemia, unspecified type (2) GI bleed: Qualified Code: K92.1 - Gastrointestinal hemorrhage with melena Sharron Lebron Dec 09, 2016 14:22 Rubén Browne MD Dec 09, 2016 17:38
[2016-12-09] MEDS ORDERED: SODIUM CHLORIDE 0.9% FLUSH 5 ML FLUSH IVF PRN (14:30)
[2016-12-09] MEDS ORDERED: ACETAMINOPHEN 325 MG TAB PO PRN ×2 (14:30→19:00)
[2016-12-09] MEDS ORDERED: diphenhydrAMINE HCL 25 MG CAP PO PRN (14:30)
[2016-12-09] MEDS ORDERED: NITROGLYCERIN 0.4 MG SL 25 TABS/BTL SL PRN (14:30)
[2016-12-09] MEDS ORDERED: cloNIDine HCL 0.1 MG TAB PO PRN ×2 (14:30→19:00)
[2016-12-09] MEDS ORDERED: ONDANSETRON HCL 4 MG/2 ML VIAL IV PRN (14:30)
[2016-12-09] MEDS ORDERED: HEPARIN SODIUM - IV 10,000 UNITS/10 ML VIAL PRN (14:30)
[2016-12-09] MEDS ORDERED: GENTAMICIN SULFATE (DIALYSIS USE ONLY) 20 MG/2 ML VIAL IV PRN (14:30)
[2016-12-09] MEDS ORDERED: HEPARIN SODIUM - IV 10,000 UNITS/10 ML VIAL IVF PRN (14:30)
[2016-12-09] MEDS ORDERED: MANNITOL 12.5 GM/50 ML VIAL IV PRN (14:30)
[2016-12-09] MEDS ORDERED: ALBUMIN HUMAN 25% 25 GM/100 ML BAGP IV PRN (14:30)
--- NOTE | 2016-12-09 14:39 | HHI.PR ---
Addendum to Inpatient Note Addendum Reason: Additional Documentation Additional Information Attempted to see patient in the ED, he is currently having bleeding scan completed. He will have dialysis after this study. Will attempt to see pt while he is getting dialysis for full history and physical and order placement. ( Jagdeep Rob MD R2) Jagdeep Rob MD R2 Dec 09, 2016 14:39 Shanna Cuadra MD Dec 10, 2016 16:35
--- NOTE | 2016-12-09 15:43 | PD.CONS ---
HPI History of Present Illness This is a 61 year old male patient who came to the ER for evaluation of rectal bleeding. He has a history of end-stage renal disease on hemodialysis Mondays, Wednesdays, and Fridays, GI bleeding from a duodenal bulb ulcer, Campylobacter diarrhea, and has had multiple hospitalizations for GI bleeding, more recently with rectal bleeding. He has had extensive workup with EGD (11/11/16)---> There was LA Class A esophagitis noted, there was erythematous gastritis in the gastric antrum, duodenal inflammation was found in the bulb and second portion of the duodenum, retroflexed views revealed a hiatal hernia. It was recommended that he undergo a colonoscopy, but the patient refused and insisted that this be done as outpatient and therefore he was discharged home, as his bleeding had stopped and he was clinically stable. Enteroscopy (11/23/16) ----> gastritis in the antrum, nodular mucosa in the duodenal bulb, scope advanced to mid jejunum, no blood up to that level, retroflex views revealed a hiatal hernia. Pathology revealed duodenal mucosa with no significant histopathologic abnormalities. The Pawan's glands are prominent. The villous architecture is normal. Gastric antral mucosa with reactive gastropathy, as may be seen with bile reflux or drug therapy. Colonoscopy with snare polypectomy (11/25/16)- --> Colon polyp. Pathology revealed tubular adenoma. Small bowel follow- through (11/25/16) revealed unremarkable small bowel examination. He was also evaluated by Dr. Schulz and he was evaluated with unremarkable Meckel scan on . His bleeding resolved and he was discharged home on 11/26/16. He was taking Protonix 40mg po at home. He states he was doing good up until this morning around 3am, when he started having rectal bleeding consisting of dark maroon bloody stool. He states that he has since had 3 episodes. There are no aggravating or alleviating factors. He has not had any associated nausea, vomiting, or abdominal pain. (Cassia Peterson) PFSH Past Medical History End-stage renal disease on hemodialysis Mondays, as Wednesdays, Fridays Bipolar disorder Chronic anemia Heavy alcohol use Adjustment disorder CHF COPD Epilepsy Gout Hypertensive nephropathy Hypertension Peptic ulcer disease Ascites History GI bleeding Multiple colon polyps- tubulovillous, tubular adenoma Duodenal ulcer Gastritis/esophagitis Hx Campylobacter diarrhea Past Surgical History Hernia repair AV fistula placements Dialysis catheter placement Neck tumor removal EGD and colonoscopy (Cassia Peterson) Coded Allergies: Haldol (Verified Allergy, Severe, SEIZURE, 12/09/16) Thorazine (Verified Allergy, Severe, SEIZURE, 12/09/16) Wellbutrin (Verified Allergy, Severe, SEIZURE, 12/09/16) Invega Sustenna (Verified Allergy, Unknown, 12/09/16) [place] (Verified Allergy, Unknown, 12/09/16) Risperdal (Verified Allergy, Unknown, 12/09/16) Valproic Acid (Verified Allergy, Unknown, 12/09/16) Medications Allergies Coded Allergies Type Severity Reaction Last Updated Verified Haldol Allergy Severe SEIZURE 12/09/16 Yes Thorazine Allergy Severe SEIZURE 12/09/16 Yes Wellbutrin Allergy Severe SEIZURE 12/09/16 Yes Invega Sustenna Allergy Unknown 12/09/16 Yes [place] Allergy Unknown 12/09/16 Yes Risperdal Allergy Unknown 12/09/16 Yes Valproic Acid Allergy Unknown 12/09/16 Yes Active Scripts Medications Dose Route/Sig Days Date Category Dose Instructions Metoprolol Succinate ER 24 HR (Metoprolol Succinate) 50 Mg Tab 50 Mg PO DAILY 12/09/16 Reported Allergy Nasal [place] 24 Ho (Fluticasone Propionate (Nasal)) 50 Mcg/Act Spr 50 BID 11/24/16 Reported Nephro-Leyla Rx (Vitamin B Cmplx/Vit C/Folic AC) 1 Tab 1 Cap PO DAILY 11/12/16 Rx Pantoprazole (Pantoprazole Sodium) 40 Mg Tab 40 Mg PO Q12HR 30 11/12/16 Rx Guanfacine (Guanfacine HCl) 1 Mg Tab 1 Mg PO HS 11/11/16 Reported Do not crush, chew or divide tablet. Take with a meal. Lasix (Furosemide) 80 Mg Tab 80 Mg PO DAILY 11/11/16 Reported Sensipar (Cinacalcet) 30 Mg Tab 30 Mg PO DAILY 11/11/16 Reported [Renalsoftgel ] 1 Cap PO DAILY 11/11/16 Reported Renvela (Sevelamer Carbonate) 800 Mg Tab 2,400 Mg PO DIRECTED 11/11/16 Reported Family History Father from colon cancer in his 60's Social History Occasional ETOH use, but was still drinking "Naddy Daddy's" earlier this month. No illicit drug use (Cassia Peterson Rae KEMP) Review of Systems Constitutional: COMPLAINS OF: Fatigue, DENIES: Weight loss, Change in appetite Respiratory: DENIES: Cough Cardiovascular: DENIES: Chest pain Gastrointestinal: COMPLAINS OF: Bloody stools, Diarrhea, DENIES: Abdominal pain, Black stools, Constipation, Nausea, Vomiting, Anorexia, Heartburn, Hematemesis Musculoskeletal: COMPLAINS OF: Joint pain Hematologic/lymphatic: DENIES: Bruising Neurologic: DENIES: Headache Psychiatric: DENIES: Confusion (PetersonCassia) GI Exam Vitals I&O Vital Signs Date Time Temp Pulse Resp B/P Pulse Ox O2 Delivery O2 Flow Rate FiO2 12/09/16 12:53 77 24 144/80 100 Room Air 12/09/16 11:19 98.0 107 14 112/69 98 Room Air Laboratory Test 12/09/16 12/09/16 12:10 13:10 White Blood Count 4.5 TH/MM3 Red Blood Count 1.86 MIL/MM3 Hemoglobin 6.3 GM/DL Hematocrit 18.6 % Mean Corpuscular Volume 100.3 FL Mean Corpuscular Hemoglobin 34.1 PG Mean Corpuscular Hemoglobin 34.0 % Concent Red Cell Distribution Width 25.0 % Platelet Count 160 TH/MM3 Mean Platelet Volume 8.2 FL Neutrophils (%) (Auto) 72.4 % Lymphocytes (%) (Auto) 15.6 % Monocytes (%) (Auto) 9.8 % Eosinophils (%) (Auto) 1.7 % Basophils (%) (Auto) 0.5 % Neutrophils # (Auto) 3.2 TH/MM3 Lymphocytes # (Auto) 0.7 TH/MM3 Monocytes # (Auto) 0.4 TH/MM3 Eosinophils # (Auto) 0.1 TH/MM3 Basophils # (Auto) 0.0 TH/MM3 CBC Comment DIFF FINAL Differential Comment Prothrombin Time 10.2 SEC Prothromb Time International 0.9 RATIO Ratio Activated Partial 27.8 SEC Thromboplast Time Sodium Level 133 MEQ/L Potassium Level 4.9 MEQ/L Chloride Level 96 MEQ/L Carbon Dioxide Level 24.2 MEQ/L Anion Gap 13 MEQ/L Blood Urea Nitrogen 65 MG/DL Creatinine 8.34 MG/DL Estimat Glomerular Filtration 7 ML/MIN Rate Random Glucose 106 MG/DL Calcium Level 7.7 MG/DL Total Bilirubin 0.3 MG/DL Aspartate Amino Transf 25 U/L (AST/SGOT) Alanine Aminotransferase 18 U/L (ALT/SGPT) Alkaline Phosphatase 201 U/L Total Protein 6.0 GM/DL Albumin 2.4 GM/DL Blood Type O POSITIVE Antibody Screen NEGATIVE Crossmatch Leukocyte-Reduced Red Blood Cells Blood Bank Comment Physical Examination HEENT: Normocephalic; atraumatic; no jaundice. CHEST: CTA CARDIAC: RRR ABDOMEN: Soft, nondistended, nontender; no hepatosplenomegaly; bowel sounds are present in all four quadrants. EXTREMITIES: No clubbing, cyanosis, or edema. 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 (Cassia Peterson) Assessment and Plan Plan ASSESSMENT: - Lower GI bleeding. Multiple hospitalizations for GI Bleeding with extensive workup. EGD (11/11/16)---> There was LA Class A esophagitis noted, there was erythematous gastritis in the gastric antrum, duodenal inflammation was found in the bulb and second portion of the duodenum, retroflexed views revealed a hiatal hernia. It was recommended that he undergo a colonoscopy, but the patient refused and insisted that this be done as outpatient and therefore he was discharged home, as his bleeding had stopped and he was clinically stable. Enteroscopy (11/23/16) ----> gastritis in the antrum, nodular mucosa in the duodenal bulb, scope advanced to mid jejunum, no blood up to that level, retroflex views revealed a hiatal hernia. Pathology revealed duodenal mucosa with no significant histopathologic abnormalities. The Pawan's glands are prominent. The villous architecture is normal. Gastric antral mucosa with reactive gastropathy, as may be seen with bile reflux or drug therapy. Colonoscopy with snare polypectomy (11/25/16)---> Colon polyp. Pathology revealed tubular adenoma. Small bowel follow-through (11/25/16) revealed unremarkable small bowel examination. He was also evaluated by Dr. Schulz and he was evaluated with unremarkable Meckel scan on 11/26/16. He started having bloody stool with dark maroon blood this am at 3am. HH 7.8/23.0. - Anemia, acute blood loss. HH 7.8/23.0. - ESRD on HD M/W/F - HTN, COPD per primary PLAN: - NPO for now - Stat bleeding scan - Protonix Gtt - Serial HH - Transfuse as necessary - He needs a capsule endoscopy as outpatient- he keeps getting readmitted before his FU appointment - Supportive care - Further recommendations to follow based on results of above - Pt seen and examined by Dr. Marx and myself and this note is written on her behalf (Cassia Peterson) Physician Comments seen, examined agree with above no further bleeding, bleeding scan noted clear liquid diet hb/hct every 6 hrs enteroscopy in [place] if no source identified consider transfer to tertiary center for double balloon enteroscopy (Jolanta Marx MD) Cassia Peterson Dec 09, 2016 15:43 Jolanta Marx MD Dec 09, 2016 19:20
--- NOTE | 2016-12-09 17:32 | RADRPT ---
EXAM DATE/TIME: 12/09/2016 15:04 CORRECTION Corrected on: December 09, 2016; [facility] COMPARISON: ANGIOGRAM, SMA, November 22, 2016, 20:04. MECKEL'S DIVERTICULUM, November 26, 2016, 10:39. GI BLEEDIN G SCAN, November 22, 2016, 16:09. INDICATIONS : Rectal bleeding with blood in stool for one day. DOSE: 21 mCi Tc99m Ultratag labeled red blood cells IV IMAGIN hrs MEDICAL HISTORY : Hypertension. Renal disease, end stage. Carcinoma, basal cell. SURGICAL HISTORY : Inguinal hernia repair. ENCOUNTER: Initial ACUITY: 1 day PAIN SCALE: 0/10 LOCATION: lower quadrant TECHNIQUE: Following the modified in vitro labeling of autologous red cells, dynamic continuous images were acqu ired for the specified interval. FINDINGS: BLEEDING: A small to moderate amount of gastric activity is first noted followed by abnormal activity in the le ft upper and mid lateral abdomen which is similar in appearance to activity on the recent GI bleeding study. On the prior study there was no abnormal gastric activity. CONCLUSION: Abnormal activity again noted in the left side of the abdomen. This could be related to activity from the stomach which then passes through the duodenum and into the proximal small bowel . Kyle Hicks MD on December 09, 2016 at 17:24 Board Certified Radiologist. This report was verified electronically. Kyle Hicks MD on December 09, 2016 at 17:34 Board Certified Radiologist. This report was verified electronically.
--- NOTE | 2016-12-09 18:24 | PD.RAD ---
Radiology Note Positive bleeding scan in [facility]. Discussed with Dr. Xiong from ED. Request for angio with possible intervention. Call team notified. When my nurse called for patient, was told he was in dialysis and would not be available for 2 hours. Will do angio in am if warranted. Neymar Elias MD Dec 09, 2016 18:24
--- NOTE | 2016-12-09 18:35 | HHI.HP ---
HPI Service Family Medicine Primary Care Physician Ivan Senior MD Admission Diagnosis GI Bleed Diagnoses: International Travel<30 Days: No Contact w/Intl Traveler<30days: No Known Affected Area: No History of Present Illness Patient is 61-year-old male with past medical history most significant for prior GI bleed including angiodysplasia status post embolization by IR, hypertension, ESRD on H/D, COPD, and alcohol abuse who presents to the hospital with concerns of bloody stools 3 today. Patient endorses 3 dark red stools beginning this afternoon. He denies any abdominal pain, nausea, vomiting, fevers, chills, chest pain, shortness of breath, or dizziness. He was most recently admitted in October and underwent panendoscopy at that time including colon polypectomy of a tubular adenoma and gastritis. A small bowl follow- through was reassuring. He is currently on a PPI. (Jose Albright MD R3) Review of Systems Constitutional: DENIES: Fever, Chills Endocrine: DENIES: Polyphagia Eyes: DENIES: Blurred vision Ears, nose, mouth, throat: DENIES: Throat pain Respiratory: DENIES: Cough Cardiovascular: DENIES: Chest pain, Lower Extremity Edema Gastrointestinal: COMPLAINS OF: Bloody stools, DENIES: Abdominal pain, Black stools, Diarrhea, Nausea, Vomiting Musculoskeletal: DENIES: Joint Swelling Integumentary: DENIES: Rash Hematologic/lymphatic: DENIES: Bruising Neurologic: DENIES: Localized weakness Psychiatric: DENIES: Confusion (Jose Albright MD R3) Past Family Social History Past Medical History Hypertension ESRDon more dialysis Ascitesof unknown etiology. History of GI bleeds and Angiodysplasia s/p prior IR embolization History of duodenal ulcers/esophagitis/Gastritisconfirmed on EGD COPD History of alcohol abuse Protein calorie malnutrition Past Surgical History Hernia repair AV fistula placements Dialysis catheter placement Neck tumor removal EGD and colonoscopy 2015 Embolization of AVM (Jose Albright MD R3) Allergies: Coded Allergies: Haldol (Verified Allergy, Severe, SEIZURE, 12/09/16) Thorazine (Verified Allergy, Severe, SEIZURE, 12/09/16) Wellbutrin (Verified Allergy, Severe, SEIZURE, 12/09/16) Invega Sustenna (Verified Allergy, Unknown, 12/09/16) Carlock (Verified Allergy, Unknown, 12/09/16) Risperdal (Verified Allergy, Unknown, 12/09/16) Valproic Acid (Verified Allergy, Unknown, 12/09/16) Family History FH of stroke, denies DM or CAD Social History EtOH: Hx of etoh abuse and w/d, endorses continued "occasional" intake, last had a drink 5-6 days ago. Denies any "heavy drinking" Tobacco: smokes when he can afford it Drugs: denies (Jose Albright MD R3) Physical Exam Vital Signs Vital Signs Date Time Temp Pulse Resp B/P Pulse Ox O2 Delivery O2 Flow Rate FiO2 12/09/16 12:53 77 24 144/80 100 Room Air 12/09/16 11:19 98.0 107 14 112/69 98 Room Air Physical Exam GENERAL: This is a well-nourished, well-developed patient, sitting comfortably in dialysis SKIN: No rashes, ecchymoses or lesions. Cool and dry. HEAD: Atraumatic. Normocephalic. No temporal or scalp tenderness. EYES: Pupils equal round and reactive. Extraocular motions intact. No scleral icterus. No injection or drainage. ENT: Nose without bleeding, purulent drainage or septal hematoma. Throat without erythema, tonsillar hypertrophy or exudate. Uvula midline. Airway patent. NECK: Trachea midline. No JVD or lymphadenopathy. Supple, nontender, no meningeal signs. CARDIOVASCULAR: Regular rate and rhythm without murmurs, gallops, or rubs. RESPIRATORY: Clear to auscultation. Breath sounds equal bilaterally. No wheezes , rales, or rhonchi. GASTROINTESTINAL: Abdomen soft, non-tender, nondistended. No hepato-splenomegaly , or palpable masses. No guarding. MUSCULOSKELETAL: Extremities without clubbing, cyanosis, or edema. No joint tenderness, effusion, or edema noted. No calf tenderness. Negative Homans sign bilaterally. NEUROLOGICAL: Awake and alert. Cranial nerves II through XII intact. Motor and sensory grossly within normal limits. Five out of 5 muscle strength in all muscle groups. Normal speech. Laboratory Laboratory Tests Test 12/09/16 12/09/16 12:10 13:10 White Blood Count 4.5 Red Blood Count 1.86 Hemoglobin 6.3 Hematocrit 18.6 Mean Corpuscular Volume 100.3 Mean Corpuscular Hemoglobin 34.1 Mean Corpuscular Hemoglobin 34.0 Concent Red Cell Distribution Width 25.0 Platelet Count 160 Mean Platelet Volume 8.2 Neutrophils (%) (Auto) 72.4 Lymphocytes (%) (Auto) 15.6 Monocytes (%) (Auto) 9.8 Eosinophils (%) (Auto) 1.7 Basophils (%) (Auto) 0.5 Neutrophils # (Auto) 3.2 Lymphocytes # (Auto) 0.7 Monocytes # (Auto) 0.4 Eosinophils # (Auto) 0.1 Basophils # (Auto) 0.0 CBC Comment DIFF FINAL Differential Comment Prothrombin Time 10.2 Prothromb Time International 0.9 Ratio Activated Partial 27.8 Thromboplast Time Sodium Level 133 Potassium Level 4.9 Chloride Level 96 Carbon Dioxide Level 24.2 Anion Gap 13 Blood Urea Nitrogen 65 Creatinine 8.34 Estimat Glomerular Filtration 7 Rate Random Glucose 106 Calcium Level 7.7 Total Bilirubin 0.3 Aspartate Amino Transf 25 (AST/SGOT) Alanine Aminotransferase 18 (ALT/SGPT) Alkaline Phosphatase 201 Total Protein 6.0 Albumin 2.4 Blood Type O POSITIVE Antibody Screen NEGATIVE Crossmatch Leukocyte-Reduced Red Blood Cells Blood Bank Comment (Jose Albright MD R3) Result Diagram: 12/09/16 1210 12/09/16 1210 Imaging Last Impressions GI Bleed Scan Nuclear Medicine 12/09/16 0000 Signed Impressions: Service Date/Time: Friday, December 09, 2016 15:04 - CONCLUSION: Abnormal activity again noted in the left side of the abdomen. This could be related to activity from the stomach which then passes through the duodenum and into the proximal small bowel. Kyle Hicks MD (Jose Albright MD R3) Assessment and Plan Assessment and Plan 61 year old male w/ history of recurrent GI bleeds presents with red blood per rectum x3 today. Code Status Full Code Discussed Condition With wdw Dr. Venecia MD (Jose Albright MD R3) Attending Attestation The patient has been seen and examined. The chart and all resident notes have been reviewed. I agree that inpatient care is appropriate and that a two midnight stay is expected for the reasons documented in the resident history and physical. I have discussed this with the resident and certify the resident s order for inpatient admission. (Shanna Cuadra MD) Problem List: (1) GI bleed Status: Acute Plan: Pt has a complex past history of GI bleeding. Has history of prior large AVM and duodenal ulcers. He was most recently admitted in early and diagnosed with "class A esophagitis" in the gastric antrum with diuodenal inflammation. He also was recently noted to have a colon polyp which was removed 11/25. Recent small bowl follow-through 11/25 was reassuring. Now presenting with dark-maroon blood stools x3. Otherwise asymptomatic. Bleeding scan positive in LUQ. * Admit to Med/Surg * NPO * CT angiogram w/ possible IR intervention in AM * Protonix gtt * Serial H&H's * Tranfuse prn * Capsule endoscopy as outpatient (2) Hypertension, benign Status: Chronic Plan: Continue MEAT SOAKER Guanfacine 1mg HS * Clonidine 0.1mg prn BP >160/90 (3) ESRD (end stage renal disease) on dialysis Status: Chronic Plan: Known to Dr. Schuster * Continue dialysis M, W, F * Continue Renvela 2400mg daily (4) COPD (chronic obstructive pulmonary disease) Status: Chronic Plan: Chronic. Currently asymptomatic. * Duonebs q4hrs prn sob/wheezing (5) Anemia Status: Chronic Plan: Hgb 6.3. Positive bleeding scan. * Transfuse 2 units PRBC's * Post-transfusion H&H * q6hr Hbg (6) Alcohol dependence in early, early partial, sustained full, or sustained partial remission Status: Acute Plan: Last drink 5-6 days ago. Denies current "heavy" intake. Has hx of w/d and requiring CIWA protocol. * CIWA protocol (7) Cirrhosis Status: Chronic Plan: Stable. * Continue MEAT SOAKER Metoprolol 50mg daily * Continue MEAT SOAKER Lasix 80mg daily (8) FEN/PPX Status: Acute Plan: FEN: - HLIV - Monitor replace electrolytes as needed - NPO at midnight for AM procedure PPX: - Bilateral lower extremity SCDs - Zofran prn for nausea (Jose Albright MD R3) Physician Certification 2 Midnight Certification Type: Admission for Inpatient Services Order for Inpatient Services The services are ordered in accordance with Medicare regulations or non- Medicare payer requirements, as applicable. In the case of services not specified as inpatient-only, they are appropriately provided as inpatient services in accordance with the 2-midnight benchmark. Estimated LOS (days): 3 days is the estimated time the patient will need to remain in the hospital, assuming treatment plan goals are met and no additional complications. Post-Hospital Plan: Home (Jose Albright MD R3) Problem Qualifiers (1) GI bleed: Qualified Code: K92.1 - Gastrointestinal hemorrhage with melena (2) COPD (chronic obstructive pulmonary disease): Qualified Code: J44.9 - Chronic obstructive pulmonary disease, unspecified COPD type (3) Anemia: Qualified Code: D64.9 - Anemia, unspecified type Jose Albright MD R3 Dec 09, 2016 18:34 Shanna Cuadra MD Dec 10, 2016 16:34
[2016-12-09] MEDS ORDERED: LORazepam 1 MG TAB PO PRN (19:00)
[2016-12-09] MEDS ORDERED: ONDANSETRON HCL 4 MG/2 ML VIAL IVP PRN (19:00)
[2016-12-09] MEDS ORDERED: FLUMAZENIL 0.5 MG/5 ML VIAL IV PUSH PRN (19:00)
[2016-12-09] MEDS ORDERED: RESP: ALBUTEROL 2.5 MG/IPRATROPIUM 0.5 MG NEB (PRN) NEB (19:00)
[2016-12-09] MEDS ORDERED: LORazepam 2 MG TAB PO PRN (19:00)
[2016-12-09] MEDS ORDERED: NALOXONE HCL 0.4 MG/ML AMP IV PRN (19:00)
[2016-12-09] MEDS ORDERED: LORazepam 2 MG/ML VIAL IV PUSH PRN ×4 (19:00)
[2016-12-09] MEDS ORDERED: SODIUM CHLORIDE 0.9% FLUSH 5 ML FLUSH FLUSH PRN (19:00)
[2016-12-09] MEDS: EPOETIN ALFA 10,000 UNITS/ML VIAL IV PRN (19:01)
[2016-12-09] MEDS: GELATIN 12 MM/7 MM FOAM TOP PRN (19:02)
[2016-12-09] MEDS ORDERED: SODIUM CHLOR 0.9% 250 ML INJ 250 ML IV ONE (20:45)
[2016-12-09] MEDS: SODIUM CHLORIDE 0.9% FLUSH 5 ML FLUSH FLUSH SCH (21:00)
[2016-12-09 21:54] LABS: HEMATOCRIT 21.9 % (39.0-51.0); REVIEW FLAG FINAL
[2016-12-09] MEDS: guanFACINE HCL 1 MG TAB PO SCH (22:11)
[2016-12-10] VITALS (17 sets, daily range): BP systolic 103–151; BP diastolic 65–90; PULSE 65–89; RESP 16–20; TEMP 97–98.5; O2SAT 94–99
[2016-12-10 04:17] LABS: AUTOMATED NEUTROPHIL # 2.9 TH/MM3 (1.8-7.7); BASOPHIL % 0.5 % (0.0-2.0); EOSINOPHIL % 1.1 % (0.0-4.0); HEMATOCRIT 22.1 % (39.0-51.0); HEMO FLAGS DIFF FINAL; LYMPH % 20.8 % (9.0-44.0); LYMPHOCYTE # 0.9 TH/MM3 (1.0-4.8); MEAN CELL VOLUME 95.3 FL (80.0-100.0); MEAN CORPUSCULAR HEMOGLOBIN 32.7 PG (27.0-34.0); MEAN CORPUSCULAR HGB CONC 34.3 % (32.0-36.0); NEUT % 66.6 % (16.0-70.0); PLATELET COUNT 145 TH/MM3 (150-450); RED BLOOD COUNT 2.32 MIL/MM3 (4.50-5.90); RED CELL DISTRIBUTION WIDTH 23.2 % (11.6-17.2); WHITE BLOOD COUNT 4.3 TH/MM3 (4.0-11.0)
[2016-12-10 04:22] LABS: ALKALINE PHOSPHATASE 165 U/L (45-117); ALT (GPT) 15 U/L (12-78); ANION GAP 9 MEQ/L (5-15); AST (GOT) 21 U/L (15-37); BICARBONATE 29.9 MEQ/L (21.0-32.0); BLOOD UREA NITROGEN 48 MG/DL (7-18); CHLORIDE 99 MEQ/L (98-107); GLOMERULAR FILTRATION RATE 11 ML/MIN (>89); POTASSIUM 3.9 MEQ/L (3.5-5.1); SODIUM (NA) 138 MEQ/L (136-145); TOTAL BILIRUBIN ADULT 0.8 MG/DL (0.2-1.0)
[2016-12-10] MEDS: SEVELAMER CARBONATE 800 MG TAB PO SCH ×3 (07:25→17:00)
[2016-12-10] MEDS: FUROSEMIDE 80 MG TAB PO SCH (08:08)
[2016-12-10] MEDS: METOPROLOL SUCCINATE 50 MG EXTENDED RELEASE TAB PO SCH (08:08)
[2016-12-10] MEDS: CINACALCET HYDROCHLORIDE 30 MG TAB PO SCH (08:08)
[2016-12-10] MEDS: SODIUM CHLORIDE 0.9% FLUSH 5 ML FLUSH FLUSH SCH ×2 (08:09→20:22)
--- NOTE | 2016-12-10 08:10 | HHI.FPPN ---
Subjective Subjective Patient seen and examined. Case reviewed and discussed Please refer to resident H&P for further details regarding HPI, ROS, PMH, SurgHx , FH and SocHx. 61yoM presenting with PMH significant for ESRD on HD, HTN, history of GIB with complaints of bloody stools x 3 episodes on day of admission No fevers, chills, chest pain. He is seen in his hospital bed this morning, no further active bleeding overnight. He plans for enteroscopy with GI today. [facility] Objective Objective Last Impressions GI Bleed Scan Nuclear Medicine 12/09/16 0000 Signed Impressions: Service Date/Time: Friday, December 09, 2016 15:04 - CONCLUSION: Abnormal activity again noted in the left side of the abdomen. This could be related to activity from the stomach which then passes through the duodenum and into the proximal small bowel. Kyle Hicks MD Laboratory Tests - Abnormals Test 12/09/16 12/09/16 12/10/16 12:10 21:08 03:36 Red Blood Count 1.86 MIL/MM3 2.32 MIL/MM3 Hemoglobin 6.3 GM/DL 7.6 GM/DL 7.6 GM/DL Hematocrit 18.6 % 21.9 % 22.1 % Mean Corpuscular Volume 100.3 FL Mean Corpuscular Hemoglobin 34.1 PG Red Cell Distribution Width 25.0 % 23.2 % Neutrophils (%) (Auto) 72.4 % Monocytes (%) (Auto) 9.8 % 11.0 % Lymphocytes # (Auto) 0.7 TH/MM3 0.9 TH/MM3 Sodium Level 133 MEQ/L Chloride Level 96 MEQ/L Blood Urea Nitrogen 65 MG/DL 48 MG/DL Creatinine 8.34 MG/DL 5.55 MG/DL Estimat Glomerular Filtration 7 ML/MIN 11 ML/MIN Rate Calcium Level 7.7 MG/DL 8.1 MG/DL Alkaline Phosphatase 201 U/L 165 U/L Total Protein 6.0 GM/DL 5.7 GM/DL Albumin 2.4 GM/DL 2.3 GM/DL Platelet Count 145 TH/MM3 Vital Signs 12/09/16 12/09/16 12/09/16 12/09/16 11:19 12:53 20:00 23:00 Temp 98.0 97.8 Pulse 107 77 111 96 Resp 14 24 20 B/P 112/69 144/80 114/82 Pulse Ox 98 100 96 O2 Delivery Room Air Room Air 12/09/16 12/09/16 12/09/16 12/10/16 23:20 23:35 23:53 00:00 Temp 98.4 98.1 97.9 Pulse 86 89 77 Resp 18 18 18 B/P 120/70 108/69 120/65 Pulse Ox 99 98 97 97 12/10/16 12/10/16 12/10/16 12/10/16 01:10 03:45 03:52 04:00 Temp 97.9 98.5 98.2 Pulse 89 74 68 Resp 18 16 18 B/P 103/66 110/69 124/74 Pulse Ox 99 99 98 97 O2 Delivery Room Air INTAKE & OUTPUT 12/10/16 07:00 Intake Total 0 ml Output Total 3850 ml Balance -3850 ml Physical exam GENERAL: Thin male, resting in bed, NAD SKIN: Warm and dry. No lesions or rashes HEAD: Normocephalic. Atraumatic EYES: No scleral icterus. No injection or drainage. ENT: OP clear. MMM. Nasal cannula in place. NECK: Supple, trachea midline. No JVD or lymphadenopathy. CARDIOVASCULAR: Regular rate and rhythm, 2/6 murmur best audible over the mitral area, no gallops or rubs. RESPIRATORY: Breath sounds equal and clear to auscultation bilaterally. No accessory muscle use. GASTROINTESTINAL: Abdomen soft, non-tender, nondistended. MUSCULOSKELETAL: No cyanosis, or edema. No calf tenderness. Left arm with AV fistula, palpable thrill BACK: Nontender without obvious deformity. No CVA tenderness. Neuro: Awake and alert, normal speech. Cranial nerves grossly intact. Assessment Assessment 61-year-old male admitted with: Symptomatic anemia Acute blood loss anemia secondary to GI bleed End-stage renal disease on hemodialysis Hypertension History of GI bleeds and Angiodysplasia s/p prior IR embolization History of duodenal ulcers/esophagitis/Gastritisconfirmed on EGD COPD History of alcohol abuse Protein calorie malnutrition PLAN PLAN Status post transfusion of packed RBCs with dialysis yesterday Follow hemoglobin Monitor for active bleeding Appreciate consultants, GI and nephrology Transfuse as needed Protonix Resume home meds as appropriate Patient seen and examined. Case reviewed and discussed. Agree with plan of care as discussed with me and documented in the resident note. Shanna Cuadra MD Dec 10, 2016 08:09
--- NOTE | 2016-12-10 08:36 | HHI.FPPN ---
Subjective Remarks No cp, sob, tired, dizz, abd pain. Objective Vitals Vital Signs Date Time Temp Pulse Resp B/P Pulse Ox O2 Delivery O2 Flow Rate FiO2 12/10/16 04:00 98.2 68 18 124/74 97 12/10/16 03:52 98.5 74 16 110/69 98 12/10/16 03:45 97.9 89 18 103/66 99 12/10/16 01:10 99 Room Air 12/10/16 00:00 97.9 77 18 120/65 97 12/09/16 23:53 97 12/09/16 23:35 98.1 89 18 108/69 98 12/09/16 23:20 98.4 86 18 120/70 99 12/09/16 23:00 96 12/09/16 20:00 97.8 111 20 114/82 96 12/09/16 12:53 77 24 144/80 100 Room Air 12/09/16 11:19 98.0 107 14 112/69 98 Room Air I/O 12/09/16 12/09/16 12/09/16 12/10/16 12/10/16 12/10/16 07:00 15:00 23:00 07:00 15:00 23:00 Intake Total 0 ml Output Total 3500 ml 350 ml Balance -3500 ml -350 ml Intake Oral 0 ml Output Urine Total 350 ml Hemodialysis 3500 ml # Bowel Movements 0 Result Diagram: 12/10/16 0336 12/10/16 0336 A/P Assessment and Plan 61 year old male w/ history of recurrent GI bleeds presents with red blood per rectum x3 today. Problem List: (1) GI bleed Status: Acute Plan: Pt has a complex past history of GI bleeding. Has history of prior large AVM and duodenal ulcers. He was most recently admitted in early and diagnosed with "class A esophagitis" in the gastric antrum with diuodenal inflammation. He also was recently noted to have a colon polyp which was removed 11/25. Recent small bowl follow-through 11/25 was reassuring. Now presenting with dark-maroon blood stools x3. Otherwise asymptomatic. Bleeding scan positive in LUQ. * Admit to Med/Surg * NPO * CT angiogram w/ possible IR intervention in AM * Protonix gtt * Serial H&H's * Tranfuse prn * Capsule endoscopy as outpatient (2) Hypertension, benign Status: Chronic Plan: Continue LOTTERY 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 Schuster * Continue dialysis M, W, F * Continue Renvela 2400mg daily (4) COPD (chronic obstructive pulmonary disease) Status: Chronic Plan: Chronic. Currently asymptomatic. * Duonebs q4hrs prn sob/wheezing (5) Anemia Status: Chronic Plan: Hgb 6.3. Positive bleeding scan. * Transfuse 2 units PRBC's * Post-transfusion H&H * q6hr Hbg (6) Alcohol dependence in early, early partial, sustained full, or sustained partial remission Status: Acute Plan: Last drink 5-6 days ago. Denies current "heavy" intake. Has hx of w/d and requiring CIWA protocol. * CIWA protocol (7) Cirrhosis Status: Chronic Plan: Stable. * Continue LOTTERY MANAGER Metoprolol 50mg daily * Continue LOTTERY MANAGER Lasix 80mg daily (8) FEN/PPX Status: Acute Plan: FEN: - HLIV - Monitor replace electrolytes as needed - NPO at midnight for AM procedure PPX: - Bilateral lower extremity SCDs - Zofran prn for nausea Problem Qualifiers (1) GI bleed: Qualified Code: K92.1 - Gastrointestinal hemorrhage with melena (2) COPD (chronic obstructive pulmonary disease): Qualified Code: J44.9 - Chronic obstructive pulmonary disease, unspecified COPD type Kyle Joshi MD R1 Dec 10, 2016 08:36 Kyle Joshi MD R1 Dec 10, 2016 08:36
[2016-12-10] MEDS: PANTOPRAZOLE INJ 80 MG in SODIUM CHLORIDE 0.9% INJ 100 ML IV SCH ×2 (10:00→23:29)
[2016-12-10] MEDS ORDERED: PROPOFOL 200 MG/20 ML AMP IV ONE (12:41)
[2016-12-10] MEDS ORDERED: SIMETHICONE SUSP DROPS 40 MG/0.6 ML 30 ML BTL ONE (12:50)
--- NOTE | 2016-12-10 14:22 | HHI.GIFU ---
GI Follow-up Note Consult Follow-up Subjective: Patient had enteroscopy-see report. AVM/ulcer third part of duodenum s/p clips .Fresh blood in stomach and duodenum-aggressive washing.Due to recurrent gi bleeding, requiring multiple units of PRBC, angiogram with embolization also recommended-high risk for rebleeding.Patient understands and willing top proceed, due to recent propofol use , cannot sign consent, no next of kin available -angiogram with embolisation medically necessary due to gi bleeding Objective: PHYSICAL EXAMINATION: Vitals signs stable No fever Vital Signs Date Time Temp Pulse Resp B/P Pulse Ox O2 Delivery O2 Flow Rate FiO2 12/10/16 12:00 98.1 76 18 117/71 97 12/10/16 08:00 Room Air 12/10/16 08:00 98.1 76 18 117/71 97 HEENT: Pupils round and reactive to light; normocephalic; atraumatic; no jaundice. Throat is clear. NECK: Neck is supple, no JVD, no lymphadenopathy. CHEST: Chest is clear to auscultation and percussion. CARDIAC: Regular rate and rhythm with no murmur gallop or rubs. ABDOMEN: Soft, nondistended, nontender; no hepatosplenomegaly; bowel sounds are present in all four quadrants. EXTREMITIES: No clubbing, cyanosis, or edema. SKIN: Normal; no rash; no jaundice. BUILDING MAINTENANCE CUSTODIAN: No focal deficits; alert and oriented times three. Available Data (labs, X- Rays, Procedues) : Laboratory Tests Test 12/09/16 12/09/16 12/09/16 12/09/16 12:10 13:10 21:00 21:08 White Blood Count 4.5 TH/MM3 Red Blood Count 1.86 MIL/MM3 Hemoglobin 6.3 GM/DL 7.6 GM/DL Hematocrit 18.6 % 21.9 % Mean Corpuscular Volume 100.3 FL Mean Corpuscular Hemoglobin 34.1 PG Mean Corpuscular Hemoglobin 34.0 % Concent Red Cell Distribution Width 25.0 % Platelet Count 160 TH/MM3 Mean Platelet Volume 8.2 FL Neutrophils (%) (Auto) 72.4 % Lymphocytes (%) (Auto) 15.6 % Monocytes (%) (Auto) 9.8 % Eosinophils (%) (Auto) 1.7 % Basophils (%) (Auto) 0.5 % Neutrophils # (Auto) 3.2 TH/MM3 Lymphocytes # (Auto) 0.7 TH/MM3 Monocytes # (Auto) 0.4 TH/MM3 Eosinophils # (Auto) 0.1 TH/MM3 Basophils # (Auto) 0.0 TH/MM3 CBC Comment DIFF FINAL Differential Comment Prothrombin Time 10.2 SEC Prothromb Time International 0.9 RATIO Ratio Activated Partial 27.8 SEC Thromboplast Time Sodium Level 133 MEQ/L Potassium Level 4.9 MEQ/L Chloride Level 96 MEQ/L Carbon Dioxide Level 24.2 MEQ/L Anion Gap 13 MEQ/L Blood Urea Nitrogen 65 MG/DL Creatinine 8.34 MG/DL Estimat Glomerular Filtration 7 ML/MIN Rate Random Glucose 106 MG/DL Calcium Level 7.7 MG/DL Total Bilirubin 0.3 MG/DL Aspartate Amino Transf 25 U/L (AST/SGOT) Alanine Aminotransferase 18 U/L (ALT/SGPT) Alkaline Phosphatase 201 U/L Total Protein 6.0 GM/DL Albumin 2.4 GM/DL Blood Type O POSITIVE O POSITIVE Antibody Screen NEGATIVE Crossmatch Leukocyte-Reduced Leukocyte-Reduced Red Blood Red Blood Cells Cells Blood Bank Comment Test 12/10/16 12/10/16 03:36 13:44 White Blood Count 4.3 TH/MM3 Red Blood Count 2.32 MIL/MM3 Hemoglobin 7.6 GM/DL Hematocrit 22.1 % Mean Corpuscular Volume 95.3 FL Mean Corpuscular Hemoglobin 32.7 PG Mean Corpuscular Hemoglobin 34.3 % Concent Red Cell Distribution Width 23.2 % Platelet Count 145 TH/MM3 Mean Platelet Volume 8.1 FL Neutrophils (%) (Auto) 66.6 % Lymphocytes (%) (Auto) 20.8 % Monocytes (%) (Auto) 11.0 % Eosinophils (%) (Auto) 1.1 % Basophils (%) (Auto) 0.5 % Neutrophils # (Auto) 2.9 TH/MM3 Lymphocytes # (Auto) 0.9 TH/MM3 Monocytes # (Auto) 0.5 TH/MM3 Eosinophils # (Auto) 0.0 TH/MM3 Basophils # (Auto) 0.0 TH/MM3 CBC Comment DIFF FINAL Differential Comment Sodium Level 138 MEQ/L Potassium Level 3.9 MEQ/L Chloride Level 99 MEQ/L Carbon Dioxide Level 29.9 MEQ/L Anion Gap 9 MEQ/L Blood Urea Nitrogen 48 MG/DL Creatinine 5.55 MG/DL Estimat Glomerular Filtration 11 ML/MIN Rate Random Glucose 96 MG/DL Calcium Level 8.1 MG/DL Total Bilirubin 0.8 MG/DL Aspartate Amino Transf 21 U/L (AST/SGOT) Alanine Aminotransferase 15 U/L (ALT/SGPT) Alkaline Phosphatase 165 U/L Total Protein 5.7 GM/DL Albumin 2.3 GM/DL Blood Type O POSITIVE Crossmatch Leukocyte-Reduced Red Blood Cells Blood Bank Comment ASSESSMENT/PLAN: anemia secondary gi bleeding recurrent gi bleeding , had multiple endoscopies, colonoscopies, bleeding scan, angiogram, s/p multiple transfusions , patient had multiple admissions for this for the last one year on today exam lesion was found in duodenum third portion, active bleeding s/p endoscopic treatment this lesion is high risk for rebleeding recommend angiogram with embolization patient understand risks, benefits and willing to proceed. He received propofol for enteroscopy, unable to sign consents, no next of kin available , in view of the above angiogram./embolization medically necessary at this point It was a pleasure seeing Johnathon Sage Thank you for this consult. Entered by: Jolanta Gonzales MD Dec 10, 2016 14:22
[2016-12-10] MEDS ORDERED: MIDAZOLAM HCL 5 MG/5 ML VIAL ONE (14:41)
[2016-12-10] MEDS ORDERED: fentaNYL CITRATE 250 MCG/5 ML AMP ONE (14:41)
--- NOTE | 2016-12-10 14:52 | HHI.PR ---
Addendum to Inpatient Note Addendum Reason: Additional Documentation Additional Information Received a page from nurse that Mr. Sage recently received propofol and cannot consent to the CT angiogram planned for today. However, the CT angiogram is medically necessary to locate the source of the patient's GI bleed. Once the source is found, then it can be treated. (Kyle Joshi MD R1) Kyle Joshi MD R1 Dec 10, 2016 14:52 Shanna Cuadra MD Dec 10, 2016 16:35
--- NOTE | 2016-12-10 15:05 | PD.RAD ---
Radiology Note Active bleed found in 3rd portion of duodenum by Dr. Marx from GI. Patient has had multiple episodes of melana with decreased H/H. Pt GDA previously embolized in January 2016 so access to area of bleeding may not be possible. Will look for collateral branches of SMA for possible source. Medical necessity requested as the patient was previously sedated for endoscopy. None the less, patient was alert and oriented in radiology and procedure was thoroughly discussed with the patient himself. Will proceed with angio. Neymar Elias MD Dec 10, 2016 15:05
--- NOTE | 2016-12-10 15:54 | HHI.NPPN ---
Subjective General Problems: Anemia Renal Failure: Chronic, End Stage Renal Disease Interval History Pt was not able to be examined. Labs and chart were reviewed. He was in GI lab earlier and in IR for angio today. He had active LLQ bleed on bleeding scan yesterday. (Sharron Lebron) Objective Data Data 12/09/16 12/10/16 19:00 07:00 Intake Total 0 ml Output Total 3850 ml Balance -3850 ml Intake Oral 0 ml Output Urine Total 350 ml Hemodialysis 3500 ml # Bowel Movements 0 Vital Signs Date Time Temp Pulse Resp B/P Pulse Ox O2 Delivery O2 Flow Rate FiO2 12/10/16 13:46 66 18 112/68 100 12/10/16 13:41 66 18 115/69 99 12/10/16 13:36 97.2 69 18 112/67 99 12/10/16 12:00 98.1 76 18 117/71 97 12/10/16 08:06 66 12/10/16 08:00 Room Air 12/10/16 08:00 98.1 76 18 117/71 97 12/10/16 04:00 98.2 68 18 124/74 97 12/10/16 03:52 98.5 74 16 110/69 98 12/10/16 03:45 97.9 89 18 103/66 99 12/10/16 01:10 99 Room Air 12/10/16 00:00 97.9 77 18 120/65 97 12/09/16 23:53 97 12/09/16 23:35 98.1 89 18 108/69 98 12/09/16 23:20 98.4 86 18 120/70 99 12/09/16 23:00 96 12/09/16 20:00 97.8 111 20 114/82 96 (Sharron Lebron) -: 12/10/16 0336 12/10/16 0336 Imaging Last 72 hours Impressions GI Bleed Scan Nuclear Medicine 12/09/16 0000 Signed Impressions: Service Date/Time: Friday, December 09, 2016 15:04 - CONCLUSION: Abnormal activity again noted in the left side of the abdomen. This could be related to activity from the stomach which then passes through the duodenum and into the proximal small bowel. Kyle Hicks MD (Sharron Lebron) Physical Exam General Appearance Remarks not available for examination (Sharron Lebron) Assessment/Plan Assessment Summary: Anemia of CKD, Hypertension, End Stage Renal Disease Problem List: (1) ESRD Plan: He had 3500 ml UF with dialysis yesterday, maintain -- HD schedule he has AVF that functions well monitor electrolytes no current dialysis concerns continue high protein diet monitor fluid volume status, adjust UF as needed (2) GI bleed Plan: GI following, in IR for angiogram with embolization (3) Anemia Plan: given 3 units since admission follow Hb also on Epogen with dialysis (4) Hypertension, benign Plan: BP stable continue home medications (5) Metabolic bone disease Plan: continue Renvela with meals,check phos intermittently (Sharron Lebron) Plan labs were reviewed. Chart reviewed. Dialysis tomorrow. (Rubén Browne MD) Problem Qualifiers (1) GI bleed: Qualified Code: K92.1 - Gastrointestinal hemorrhage with melena (2) Anemia: Qualified Code: D64.9 - Anemia, unspecified type Sharron Lebron Dec 10, 2016 15:53 Rubén Browne MD Dec 10, 2016 17:39
[2016-12-10] MEDS ORDERED: IODIXANOL 320 MG/ML 100 ML VIAL (for Cath Lab) I-ARTERIAL ONE (16:22)
[2016-12-10] MEDS ORDERED: MORPHINE SULFATE 4 MG/ML INJ IV PUSH ONE (17:45)
--- NOTE | 2016-12-10 18:02 | HHI.FF ---
Face to Face Verification Diagnosis: (1) Metabolic bone disease (2) Anemia (3) Hypertension, benign (4) GI bleed (5) ESRD (6) COPD (chronic obstructive pulmonary disease) (7) Alcohol dependence in early, early partial, sustained full, or sustained partial remission (8) Cirrhosis Home Health Nursing Order: Nursing assessment with vital signs I have seen patient Johnathon Sage on 12/10/16. My clinical findings support the need for the requested home health care services because: He has a complex medical history including ESRD, is undergoing dialysis -, has history or GI bleeds and has had poor compliance/follow up. Ltd mobility - disease progression Med compliance is questionable Limited ability to care for self I certify that my clinical findings support that this patient is homebound because: He has ESRD on dialysis ,has history of recurrent GI bleeds and anemia. Unsteady gait/balance Unsafe to leave home unassisted Jagdeep Rob MD R2 Dec 10, 2016 18:02
--- NOTE | 2016-12-10 18:07 | RADRPT ---
EXAM DATE/TIME: 12/10/2016 15:03 [place] COMPARISON: ANGIOGRAM, SMA, November 22, 2016, 20:04. INDICATIONS: Patient with history of GI bleeding in need of angiogram. MEDICAL HISTORY: Hypertension ESRD-on more dialysis Ascites-of unknown etiology. History of GI bleeds and Angiodysplasia s/p prior IR embolization History of duodenal ulcers/esophagitis/Gastritis-confirmed on EGD COPD History of alcohol abuse Protein calorie malnutrition. SURGICAL HISTORY: Hernia repair AV fistula placements Dialysis catheter placement Neck tumor removal EGD and colonoscopy 2016 Embolization of AVM Enteroscopy 12/10/16 ENCOUNTER: Initial ACUITY: 2 days PAIN SCORE: 4/10 LOCATION: Abdomen FLUORO TIME: 15.7 minutes ACCESS SITE: Right femoral artery SEDATION TIME: 75 minutes CONTRAST: 85 cc Visipaque (iodixanol) MEDICATION(S): 1.) 3.5 mg midazolam (Versed) IV 2.) 175 mcg fentanyl (Sublimaze) IV DEVICE(S): Right Syvek pad PROCEDURE: 1. Ultrasound-guided puncture of the access site. 2. Conscious sedation with continuous EKG and Oximetry monitoring. 3. Angiography of the proximal jejunal branch of the SMA 4. Angiography of the right colic branch of the SMA 5. Angiography of the mid jejunal branch of the SMA The risks, benefits and alternatives to the procedure were explained and verbal and written consent w as obtained. The site was prepped in sterile fashion. Full sterile technique was used, including ca p, mask, sterile gloves and gown and a large sterile sheet. Hand hygiene and 2% chlorhexidine and/or betadine/alcohol prep was utilized per protocol for cutaneous antisepsis. The skin and subcutaneous tissues were infiltrated with local anesthetic solution. With ultrasound and fluoroscopic guidance the selected artery was punctured and a vascular sheath was placed Fluoroscopic images of the abdomen show findings of prior GDA embolization. This was confirmed when t cristopher previous angiography was reviewed from November 222016. Therefore, my efforts were concentr ated on branches of the SMA to evaluate for a possible collateral vessel supplying the third portion of the duodenum. A hook catheter was used to select the origin of the SMA. The wire was advanced pe ripherally and a hockey stick catheter was used to advance the wire further down the SMA to facilitat e placement of a 5-[place] Raabe sheath at the origin of the SMA. Contrast injection through the Elham e sheath again showed normal arborization of the SMA with no obvious bleed. A hockey stick catheter and glidewire were then used to select three proximal branches of the SMA. A proximal and mid jejunal branch was selected and I believe the right colic branch were all selected. Contrast injection confirmed position but again, I could not identify any collaterals through the pancreatic or duodenal arcade to identify a source of bleeding in the third portion of the duodenum ( the area is now marked with multiple clips from the patient's endoscopy performed earlier this kyaw limon). The puncture site was closed with manual pressure and hemostasis was obtained. The patient tolerated the procedure well and there were no complications. Conscious sedation was performed with the prescribed dosages and duration as above. EKG and oximetry remained stable throughout the procedure. CONCLUSION: 1. The patient has had prior GDA embolization. This prevents antegrade evaluation and access of the feeder vessels to the third portion of the duodenum. 2. I did attempt to identify collateral vessels through the pancreatic or duodenal arcade off of the SMA but none were identified. No findings of active hemorrhage. Neymar Elias MD on December 10, 2016 at 17:07 Board Certified Radiologist. This report was verified electronically.
[2016-12-10] MEDS ORDERED: MORPHINE SULFATE 4 MG/ML INJ IV PRN (18:15)
[2016-12-10] MEDS: guanFACINE HCL 1 MG TAB PO SCH (20:21)
[2016-12-11] VITALS (8 sets, daily range): BP systolic 108–128; BP diastolic 65–85; PULSE 70–104; RESP 16–22; TEMP 97.7–98.2; O2SAT 97–100
[2016-12-11 01:04] LABS: REVIEW FLAG FINAL
[2016-12-11] MEDS: PANTOPRAZOLE INJ 80 MG in SODIUM CHLORIDE 0.9% INJ 100 ML IV SCH ×2 (06:22→22:36)
[2016-12-11] MEDS: SEVELAMER CARBONATE 800 MG TAB PO SCH ×3 (08:00→17:00)
--- NOTE | 2016-12-11 08:57 | HHI.NPPN ---
Subjective General Problems: Anemia Renal Failure: Chronic, End Stage Renal Disease Interval History patient was seen and examined during dialysis. Angiography note reviewed. No active bleeding found. No embolization performed. Objective Data Data 12/10/16 12/11/16 19:00 07:00 Intake Total 841 ml 927 ml Output Total 225 ml 200 ml Balance 616 ml 727 ml Intake Oral 0 ml 480 ml IV Total 841 ml 447 ml Output Urine Total 225 ml Stool Total 200 ml # Voids 3 # Bowel Movements 0 1 Vital Signs Date Time Temp Pulse Resp B/P Pulse Ox O2 Delivery O2 Flow Rate FiO2 12/11/16 04:00 97.8 70 22 111/68 97 12/11/16 03:04 80 12/11/16 00:00 98.2 76 22 117/66 97 12/10/16 23:30 96 Room Air 12/10/16 20:55 97.6 68 18 116/70 99 12/10/16 18:57 97.9 71 18 122/72 98 12/10/16 18:43 97.6 68 18 116/70 99 12/10/16 18:25 97.0 68 20 144/82 99 12/10/16 17:53 70 16 130/79 97 12/10/16 17:30 65 16 139/83 94 12/10/16 17:03 65 16 137/78 97 12/10/16 16:45 65 16 144/78 96 12/10/16 16:30 73 20 151/90 97 12/10/16 16:15 97.9 73 20 150/81 96 12/10/16 13:46 66 18 112/68 100 12/10/16 13:41 66 18 115/69 99 12/10/16 13:36 97.2 69 18 112/67 99 12/10/16 12:00 98.1 76 18 117/71 97 -: 12/11/16 0035 12/10/16 0336 Physical Exam General Appearance: No Acute Distress, Malnourished Neck Neck Exam: Neck Supple Pulmonary Resp Exam: Clear Bilaterally Cardiology CV Exam: Regular Gastrointestinal/Abdomen GI Exam: Soft, Non-Tender Musculoskeletal MS Exam: Joints Intact Extremeties Extremities Exam: No Edema Neurologic Neuro Exam: Moving All Extremities Assessment/Plan Assessment Summary: Anemia of CKD, Hypertension, End Stage Renal Disease Problem List: (1) ESRD Plan: Seen during dialysis. Hemoglobin is low but stable. Monitor for continued bleeding. GI following. Monitor fluid and electrolytes. (2) GI bleed Plan: see above. Advance diet as per GI recommendations. Patient wants to eat regular food. (3) Anemia Plan: given 3 units since admission follow Hb also on Epogen with dialysis (4) Hypertension, benign Plan: BP stable continue home medications (5) Metabolic bone disease Plan: continue Renvela with meals,check phos intermittently Problem Qualifiers (1) GI bleed: Qualified Code: K92.1 - Gastrointestinal hemorrhage with melena (2) Anemia: Qualified Code: D64.9 - Anemia, unspecified type Rubén Browne MD Dec 11, 2016 08:57
[2016-12-11] MEDS: SODIUM CHLORIDE 0.9% FLUSH 5 ML FLUSH FLUSH SCH ×2 (09:00→21:00)
--- NOTE | 2016-12-11 10:58 | HHI.FPPN ---
Subjective Remarks Patient off the floor for dialysis. Pt seen and examined during dialysis. He reports that overnight he experienced an episode of melena and had purple- colored stool. He also noted that he had some bleeding per rectum. This is currently resolved. He believes that this occurred at approximately 2 AM. He denies feeling dizzy or lightheaded, chest pain, shortness of breath, abdominal pain, lower extremity pain. This was discussed with patient's nurse and she said that in report she was notified that he did have "maroon-colored stools", quantity was not specified.. It is not clear if GI was notified. [facility] staff are present to meet with pt and expressed that patient has not been compliant with following up and when home Health has been arranged he does not let them into his home. (Jagdeep Rob MD R2) Objective Vitals Vital Signs Date Time Temp Pulse Resp B/P Pulse Ox O2 Delivery O2 Flow Rate FiO2 12/11/16 08:00 97.7 71 20 127/74 97 12/11/16 04:00 97.8 70 22 111/68 97 12/11/16 03:04 80 12/11/16 00:00 98.2 76 22 117/66 97 12/10/16 23:30 96 Room Air 12/10/16 20:55 97.6 68 18 116/70 99 12/10/16 18:57 97.9 71 18 122/72 98 12/10/16 18:43 97.6 68 18 116/70 99 12/10/16 18:25 97.0 68 20 144/82 99 12/10/16 17:53 70 16 130/79 97 12/10/16 17:30 65 16 139/83 94 12/10/16 17:03 65 16 137/78 97 12/10/16 16:45 65 16 144/78 96 12/10/16 16:30 73 20 151/90 97 12/10/16 16:15 97.9 73 20 150/81 96 12/10/16 13:46 66 18 112/68 100 12/10/16 13:41 66 18 115/69 99 12/10/16 13:36 97.2 69 18 112/67 99 12/10/16 12:00 98.1 76 18 117/71 97 I/O 2/14/17 12/10/16 12/10/16 12/11/16 12/11/16 12/11/16 07:00 15:00 23:00 07:00 15:00 23:00 Intake Total 0 ml 841 ml 927 ml Output Total 350 ml 225 ml 200 ml Balance -350 ml 616 ml 727 ml Intake Oral 0 ml 0 ml 480 ml IV Total 841 ml 447 ml Output Urine Total 350 ml 225 ml Stool Total 200 ml # Voids 3 # Bowel Movements 0 0 1 (Jagdeep Rob MD R2) Result Diagram: 12/11/16 0035 12/10/16 0336 Objective Remarks GENERAL: This is a well-nourished, well-developed patient, laying comfortably in dialysis HEENT: Atraumatic. Normocephalic. Area of alopecia over right temporal region. Pupils equal round and reactive. Conjunctival pallor. Extraocular motions intact. No scleral icterus. Throat without erythema, tonsillar hypertrophy or exudate. Uvula midline. Airway patent. Mucous membranes pale. CARDIOVASCULAR: Regular rate and rhythm, 2/6 murmur RESPIRATORY: Anterior lung polo auscultated. Clear to auscultation. Breath sounds equal bilaterally. No wheezes, rales, or rhonchi. GASTROINTESTINAL: Abdomen soft, non-tender with light palpation, nondistended. No hepato-splenomegaly, or palpable masses. No guarding. RECTAL: No active bleeding from rectum appreciated on exam. MUSCULOSKELETAL: Extremities without clubbing, cyanosis, or edema. No joint tenderness, effusion, or edema noted. No calf tenderness. Negative Homans sign bilaterally. NEUROLOGICAL: Awake and alert, oriented to person place and time. Motor and sensory grossly within normal limits. Normal speech. (Jagdeep Rob MD R2) A/P Assessment and Plan 61 year old male w/ history of recurrent GI bleeds presents with red blood per rectum x3 today. Discharge Planning Anticipate discharge once patient has been cleared by GI, GI bleed has resolved , follow-up has been arranged. wdw Dr. Cuadra (Jagdeep Rob MD R2) Attending Attestation Patient seen and examined. Case reviewed and discussed with the resident team Agree with plan of care as discussed with me and documented in the resident note. (Shanna Cuadra MD) Problem List: (1) GI bleed Status: Acute Plan: Pt has a complex past history of GI bleeding. Has history of prior large AVM and duodenal ulcers. He was most recently admitted in early and diagnosed with "class A esophagitis" in the gastric antrum with duodenal inflammation. He also was recently noted to have a colon polyp which was removed 11/25. Recent small bowl follow-through 11/25 was reassuring. Bleeding scan positive in [facility]. * GI consulted, appreciate intervention and recommendations * Patient status post enteroscopy with clipping on 12/10, AVM/small ulcer and third portion of the duodenum * Embolization preformed, deemed to be medically necessary * Protonix gtt * Patient endorses episode of melena overnight, likely from previous bleed * Continue to monitor H&H, labs from this morning have not resulted * If pt continues to have recurrent bleeding, will consider transfer to tertiary care center for double balloon enteroscopy * Tranfuse prn * Capsule endoscopy to be arranged as outpatient (2) Hypertension, benign Status: Chronic Plan: 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 Schuster, dialysis scheduled on , , * Continue dialysis per nephrology * Continue Renvela 2400mg daily (4) COPD (chronic obstructive pulmonary disease) Status: Chronic Plan: Chronic. Currently asymptomatic. * Duonebs q4hrs prn sob/wheezing (5) Anemia Status: Chronic Plan: Hgb 6.3 on admission. Positive bleeding scan. H&H most recently 7.9 and 23, labs from this morning pending. * Transfused total of 4 units PRBC's * Continue to monitor (6) Alcohol dependence in early, early partial, sustained full, or sustained partial remission Status: Acute Plan: Last drink almost a week prior to admission. Has hx of w/d and requiring CIWA protocol. * CIWA protocol (7) Cirrhosis Status: Chronic Plan: Stable. 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 Metoprolol 50mg daily 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 Lasix 80mg daily (8) FEN/PPX Status: Acute Plan: FEN: - HLIV - Monitor replace electrolytes as needed - Renal diet PPX: DVT: Bilateral lower extremity SCDs, Chemoprophylaxis contraindicated to to GI bleed GI: Protonix, Zofran prn for nausea (Jagdeep Rob MD R2) Problem Qualifiers (1) GI bleed: Qualified Code: K92.1 - Gastrointestinal hemorrhage with melena (2) COPD (chronic obstructive pulmonary disease): Qualified Code: J44.9 - Chronic obstructive pulmonary disease, unspecified COPD type Jagdeep Rob MD R2 Dec 11, 2016 10:58 Shanna Cuadra MD Dec 12, 2016 15:29
[2016-12-11] MEDS: EPOETIN ALFA 10,000 UNITS/ML VIAL IV PRN (11:29)
[2016-12-11] MEDS: GELATIN 12 MM/7 MM FOAM TOP PRN (11:29)
--- NOTE | 2016-12-11 12:47 | HHI.GIFU ---
Subjective Remarks Seen in HD. Pt reports that he had two episodes of rectal bleeding overnight, none this am. No n/v. No abdominal pain. (Cassia Peterson) Objective Vitals I&O Vital Signs Date Time Temp Pulse Resp B/P Pulse Ox O2 Delivery O2 Flow Rate FiO2 12/11/16 08:00 97.7 71 20 127/74 97 12/11/16 08:00 96 Room Air 12/11/16 04:00 97.8 70 22 111/68 97 12/11/16 03:04 80 12/11/16 00:00 98.2 76 22 117/66 97 12/10/16 23:30 96 Room Air 12/10/16 20:55 97.6 68 18 116/70 99 12/10/16 18:57 97.9 71 18 122/72 98 12/10/16 18:43 97.6 68 18 116/70 99 12/10/16 18:25 97.0 68 20 144/82 99 12/10/16 17:53 70 16 130/79 97 12/10/16 17:30 65 16 139/83 94 12/10/16 17:03 65 16 137/78 97 12/10/16 16:45 65 16 144/78 96 12/10/16 16:30 73 20 151/90 97 12/10/16 16:15 97.9 73 20 150/81 96 12/10/16 13:46 66 18 112/68 100 12/10/16 13:41 66 18 115/69 99 12/10/16 13:36 97.2 69 18 112/67 99 I/O 12/10/16 12/10/16 12/10/16 12/11/16 12/11/16 12/11/16 07:00 15:00 23:00 07:00 15:00 23:00 Intake Total 0 ml 841 ml 927 ml Output Total 350 ml 225 ml 200 ml 2300 ml Balance -350 ml 616 ml 727 ml -2300 ml Intake Oral 0 ml 0 ml 480 ml IV Total 841 ml 447 ml Output Urine Total 350 ml 225 ml Stool Total 200 ml Hemodialysis 2300 ml # Voids 3 # Bowel Movements 0 0 1 Laboratory Laboratory Tests Test 12/10/16 12/11/16 13:44 00:35 Blood Type O POSITIVE Crossmatch Leukocyte-Reduced Red Blood Cells Blood Bank Comment Hemoglobin 7.9 Hematocrit 23.0 Imaging Last Impressions Abdominal Angiography 12/10/16 0000 Signed Impressions: Service Date/Time: Saturday, December 10, 2016 15:03 - CONCLUSION: 1. The patient has had prior GDA embolization. This prevents antegrade evaluation and access of the feeder vessels to the third portion of the duodenum. 2. I did attempt to identify collateral vessels through the pancreatic or duodenal arcade off of the SMA but none were identified. No findings of active hemorrhage. Neymar Elias MD GI Bleed Scan Nuclear Medicine 12/09/16 0000 Signed Impressions: Service Date/Time: Friday, December 09, 2016 15:04 - CONCLUSION: Abnormal activity again noted in the left side of the abdomen. This could be related to activity from the stomach which then passes through the duodenum and into the proximal small bowel. Kyle Hicks MD Physical Exam HEENT: Pupils round and reactive to light; normocephalic; atraumatic; no jaundice. Throat is clear. NECK: Neck is supple, no JVD, no lymphadenopathy. CHEST: Chest is clear to auscultation and percussion. CARDIAC: Regular rate and rhythm with no murmur gallop or rubs. ABDOMEN: Soft, nondistended, nontender; no hepatosplenomegaly; bowel sounds are present in all four quadrants. EXTREMITIES: No clubbing, cyanosis, or edema. SKIN: Normal; no rash; no jaundice. GRADES 6 THROUGH 8 TEACHER: No focal deficits; alert and oriented times three. (Cassia Peterson [facility]) Assessment and Plan Plan ASSESSMENT: - Lower GI bleeding. Multiple hospitalizations for GI Bleeding with extensive workup. EGD (11/11/16)---> There was LA Class A esophagitis noted, there was erythematous gastritis in the gastric antrum, duodenal inflammation was found in the bulb and second portion of the duodenum, retroflexed views revealed a hiatal hernia. It was recommended that he undergo a colonoscopy, but the patient refused and insisted that this be done as outpatient and therefore he was discharged home, as his bleeding had stopped and he was clinically stable. Enteroscopy (11/23/16) ----> gastritis in the antrum, nodular mucosa in the duodenal bulb, scope advanced to mid jejunum, no blood up to that level, retroflex views revealed a hiatal hernia. Pathology revealed duodenal mucosa with no significant histopathologic abnormalities. The Pawan's glands are prominent. The villous architecture is normal. Gastric antral mucosa with reactive gastropathy, as may be seen with bile reflux or drug therapy. Colonoscopy with snare polypectomy (11/25/16)---> Colon polyp. Pathology revealed tubular adenoma. Small bowel follow-through (11/25/16) revealed unremarkable small bowel examination. He was also evaluated by Dr. Schulz and he was evaluated with unremarkable Meckel scan on 11/26/16. He returned with recurrent rectal bleeding. GI Bleed Scan Nuclear Medicine (12/09/16)----> Abnormal activity again noted in the left side of the abdomen. This could be related to activity from the stomach which then passes through the duodenum and into the proximal small bowel. S/P Enteroscopy (12/10/16)---> small ulceration/avm third portion of the duodenum, s/p 4 clips, no active bleeding, fresh blood in stomach, duodenum, washed, no further bleeding seen. Angiogram (12/10/16)----> 1. The patient has had prior GDA embolization. This prevents antegrade evaluation and access of the feeder vessels to the third portion of the duodenum. 2. I did attempt to identify collateral vessels through the pancreatic or duodenal arcade off of the SMA but none were identified. No findings of active hemorrhage. Pt reports he had two episodes of passing red blood overnight, none this shift. HH at 7.9 at 0035. This could be passage of old blood. Will closely monitor HH. Called office. He does not need approval for his capsule endoscopy and once he is closer to discharge, will call and schedule prior to patient leaving hospital so hopefully he can have this done prior to having repeat bleeding. - Anemia, acute blood loss. HH 7.9/23.0 - ESRD on HD M/W/F - HTN, COPD per primary PLAN: - MADELINE, renal diet - Protonix Gtt - Serial HH q6h - Transfuse as necessary - He needs a capsule endoscopy as outpatient- he keeps getting readmitted before his FU appointment. Called office, this has been ordered and he does not need approval. Scheduling reports that they have tried to reach patient to schedule, but he does not answer phone or respond. Once he is closer to discharge, will call and schedule prior to patient leaving hospital - Supportive care - Further recommendations to follow based on results of above - Pt seen and examined by Dr. Marx and myself and this note is written on her behalf (Cassia Peterson) Physician Comments seen, examined agree with above transfuse 2 units of prbc tomorrow during hd to bring hb up more if stable may dc home tomorrow capsule endoscopy op (Jolanta Marx MD) Cassia Peterson Dec 11, 2016 12:47 Jolanta Marx MD Dec 11, 2016 17:54
[2016-12-11] MEDS: CINACALCET HYDROCHLORIDE 30 MG TAB PO SCH (12:52)
[2016-12-11] MEDS: METOPROLOL SUCCINATE 50 MG EXTENDED RELEASE TAB PO SCH (12:52)
[2016-12-11] MEDS: FUROSEMIDE 80 MG TAB PO SCH (12:52)
[2016-12-11 14:33] LABS: AUTOMATED NEUTROPHIL # 2.8 TH/MM3 (1.8-7.7); BASOPHIL % 0.4 % (0.0-2.0); HEMATOCRIT 22.3 % (39.0-51.0); HEMO FLAGS DIFF FINAL; LYMPH % 16.1 % (9.0-44.0); LYMPHOCYTE # 0.6 TH/MM3 (1.0-4.8); MEAN CELL VOLUME 94.6 FL (80.0-100.0); MEAN CORPUSCULAR HEMOGLOBIN 32.3 PG (27.0-34.0); MEAN CORPUSCULAR HGB CONC 34.2 % (32.0-36.0); MONO % 11.1 % (0.0-8.0); NEUT % 71.4 % (16.0-70.0); PLATELET COUNT 158 TH/MM3 (150-450); RED BLOOD COUNT 2.36 MIL/MM3 (4.50-5.90); RED CELL DISTRIBUTION WIDTH 20.6 % (11.6-17.2); WHITE BLOOD COUNT 3.9 TH/MM3 (4.0-11.0)
[2016-12-11 14:46] LABS: ANION GAP 10 MEQ/L (5-15); AST (GOT) 20 U/L (15-37); BICARBONATE 29.5 MEQ/L (21.0-32.0); BLOOD UREA NITROGEN 48 MG/DL (7-18); CHLORIDE 99 MEQ/L (98-107); POTASSIUM 3.8 MEQ/L (3.5-5.1); SODIUM (NA) 138 MEQ/L (136-145)
[2016-12-11 14:50] LABS: ALKALINE PHOSPHATASE 156 U/L (45-117); ALT (GPT) 14 U/L (12-78); GLOMERULAR FILTRATION RATE 14 ML/MIN (>89); TOTAL BILIRUBIN ADULT 0.4 MG/DL (0.2-1.0)
[2016-12-11 19:26] LABS: HEMATOCRIT 22.8 % (39.0-51.0); REVIEW FLAG FINAL
[2016-12-11] MEDS: guanFACINE HCL 1 MG TAB PO SCH (21:05)
[2016-12-12] VITALS (15 sets, daily range): BP systolic 101–140; BP diastolic 58–69; PULSE 20–85; RESP 16–22; TEMP 97.3–98.6; O2SAT 95–100
[2016-12-12 01:00] LABS: REVIEW FLAG FINAL
[2016-12-12 01:09] LABS: HEMATOCRIT 17.4 % (39.0-51.0)
[2016-12-12] MEDS: CINACALCET HYDROCHLORIDE 30 MG TAB PO SCH (08:38)
[2016-12-12] MEDS: SEVELAMER CARBONATE 800 MG TAB PO SCH (08:38)
[2016-12-12] MEDS: METOPROLOL SUCCINATE 50 MG EXTENDED RELEASE TAB PO SCH (08:38)
[2016-12-12] MEDS: FUROSEMIDE 80 MG TAB PO SCH (08:38)
[2016-12-12] MEDS: SODIUM CHLORIDE 0.9% FLUSH 5 ML FLUSH FLUSH SCH (08:38)
[2016-12-12 09:53] LABS: AUTOMATED NEUTROPHIL # 2.3 TH/MM3 (1.8-7.7); BASOPHIL % 0.6 % (0.0-2.0); EOSINOPHIL # 0.1 TH/MM3 (0-0.4); EOSINOPHIL % 1.8 % (0.0-4.0); LYMPH % 20.7 % (9.0-44.0); LYMPHOCYTE # 0.7 TH/MM3 (1.0-4.8); MEAN CELL VOLUME 93.1 FL (80.0-100.0); MEAN CORPUSCULAR HEMOGLOBIN 32.5 PG (27.0-34.0); MEAN CORPUSCULAR HGB CONC 34.9 % (32.0-36.0); MONO % 11.5 % (0.0-8.0); NEUT % 65.4 % (16.0-70.0); PLATELET COUNT 160 TH/MM3 (150-450); RED BLOOD COUNT 2.22 MIL/MM3 (4.50-5.90); RED CELL DISTRIBUTION WIDTH 19.5 % (11.6-17.2); WHITE BLOOD COUNT 3.5 TH/MM3 (4.0-11.0)
[2016-12-12 10:06] LABS: HEMO FLAGS DIFF FINAL
[2016-12-12 10:08] LABS: ALKALINE PHOSPHATASE 146 U/L (45-117); ALT (GPT) 11 U/L (12-78); ANION GAP 11 MEQ/L (5-15); AST (GOT) 16 U/L (15-37); BICARBONATE 28.3 MEQ/L (21.0-32.0); BLOOD UREA NITROGEN 75 MG/DL (7-18); CHLORIDE 96 MEQ/L (98-107); GLOMERULAR FILTRATION RATE 9 ML/MIN (>89); POTASSIUM 4.4 MEQ/L (3.5-5.1); SODIUM (NA) 135 MEQ/L (136-145); TOTAL BILIRUBIN ADULT 0.3 MG/DL (0.2-1.0)
[2016-12-12 10:10] LABS: HEMATOCRIT 20.7 % (39.0-51.0)
--- NOTE | 2016-12-12 11:04 | HHI.FPPN ---
Subjective Remarks Overnight, patient with blood pressure ranging from 101-140/58 to 60s, otherwise afebrile with vital signs stable. Patient reports rectal bleeding at around 8 PM last night, but no bowel movements since that time. He denies any chest pain, shortness of breath, dyspnea on exertion, dizziness, lightheadedness , presyncope, syncope. Objective Vitals Vital Signs Date Time Temp Pulse Resp B/P Pulse Ox O2 Delivery O2 Flow Rate FiO2 12/12/16 09:31 99 21 12/12/16 08:23 Room Air 12/12/16 08:00 97.5 78 20 108/60 98 12/12/16 06:35 98.2 71 16 107/66 96 12/12/16 04:00 97.6 71 18 112/63 95 12/12/16 03:22 97.8 79 18 101/58 98 12/12/16 03:05 97.3 78 18 101/59 97 12/12/16 00:00 98.2 85 18 140/60 98 12/12/16 00:00 Room Air 12/11/16 21:28 83 12/11/16 20:00 97.9 75 16 108/65 100 12/11/16 20:00 Room Air 12/11/16 16:00 98.0 86 20 109/66 100 12/11/16 12:45 88 20 128/85 97 I/O 12/11/16 12/11/16 12/11/16 12/12/16 12/12/16 12/12/16 07:00 15:00 23:00 07:00 15:00 23:00 Intake Total 927 ml 600 ml 79 ml 484 ml Output Total 200 ml 4300 ml Balance 727 ml -3700 ml 79 ml 484 ml Intake Oral 480 ml 600 ml 120 ml IV Total 447 ml 79 ml 64 ml Packed Cells 300 ml Stool Total 200 ml Hemodialysis 4300 ml # Voids 3 4 0 # Bowel Movements 1 4 0 Result Diagram: 12/12/1692312/12/16923 Imaging Last Impressions Abdominal Angiography 12/10/16 0000 Signed Impressions: Service Date/Time: Saturday, December 10, 2016 15:03 - CONCLUSION: 1. The patient has had prior GDA embolization. This prevents antegrade evaluation and access of the feeder vessels to the third portion of the duodenum. 2. I did attempt to identify collateral vessels through the pancreatic or duodenal arcade off of the SMA but none were identified. No findings of active hemorrhage. Neymar Elias MD GI Bleed Scan Nuclear Medicine 12/09/16 0000 Signed Impressions: Service Date/Time: Friday, December 09, 2016 15:04 - CONCLUSION: Abnormal activity again noted in the left side of the abdomen. This could be related to activity from the stomach which then passes through the duodenum and into the proximal small bowel. Kyle Hicks MD Objective Remarks GENERAL: This is a well-nourished, well-developed patient, laying comfortably in dialysis HEENT: Atraumatic. Normocephalic. Area of alopecia over right temporal region. Pupils equal round and reactive. Conjunctival pallor. Extraocular motions intact. No scleral icterus. Throat without erythema, tonsillar hypertrophy or exudate. Uvula midline. Airway patent. Mucous membranes pale. CARDIOVASCULAR: Regular rate and rhythm, 2/6 murmur RESPIRATORY: Anterior lung polo auscultated. Clear to auscultation. Breath sounds equal bilaterally. No wheezes, rales, or rhonchi. GASTROINTESTINAL: Abdomen soft, non-tender with light palpation, nondistended. No palpable masses. No guarding. MUSCULOSKELETAL: Extremities without clubbing, cyanosis, or edema. No joint tenderness, effusion, or edema noted. No calf tenderness. NEUROLOGICAL: Awake and alert, oriented to person place and time. Motor and sensory grossly within normal limits. Normal speech. A/P Assessment and Plan 61 year old male w/ history of recurrent GI bleeds presented with red blood per rectum x3 that continued overnight despite GI clipping AVM in duodenum. Discharge Planning Anticipate transfer to [facility] for balloon enteroscopy. Patient has been cleared by GI. VIRIDIANA Nino Dr. Problem List: (1) GI bleed Status: Acute Plan: Pt has a complex past history of GI bleeding. Has history of prior large AVM and duodenal ulcers. He was most recently admitted in early and diagnosed with "class A esophagitis" in the gastric antrum with duodenal inflammation. He also was recently noted to have a colon polyp which was removed 11/25. Recent small bowl follow-through 11/25 was reassuring. Bleeding scan positive in [facility]. * GI consulted, appreciate intervention and recommendations * Patient status post enteroscopy with clipping on 12/10, AVM/small ulcer and third portion of the duodenum * Embolization preformed, deemed to be medically necessary * Protonix gtt * Patient endorses episode of melena overnight, likely from previous bleed * Continue to monitor H&H, labs from this morning have not resulted * If pt continues to have recurrent bleeding, will transfer to tertiary care center for capsule endoscopy, possible double balloon enteroscopy * Tranfuse prn * Nothing by mouth for procedure (2) Hypertension, benign Status: Chronic Plan: Continue EDITORIAL PROJECT 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 Schuster, dialysis scheduled on , . Patient had 4.3 L intake from hemodialysis yesterday, 12/12/16. * Continue dialysis per nephrology * Continue Renvela 2400mg daily * Euvolemic on Lasix daily * High-protein diet * AVF left arm functions well * Avoid nephrotoxins * Follow renal function labs (2) GI bleed Plan: GI following, NPO for endoscopy today surgeon consulted as well. transfuse as needed he is on protonix gtt (3) Anemia Plan: recurrent GIB, active 2 additional units ordered and being given today follow Hb also on Epogen with dialysis check iron profile in am (4) Hypertension, benign Plan: BP stable continue home medications (5) Metabolic bone disease Plan: continue Renvela with meals when no longer NPO check phos intermittently (4) COPD (chronic obstructive pulmonary disease) Status: Chronic Plan: Chronic. Currently asymptomatic. * Duonebs q4hrs prn sob/wheezing (5) Anemia Status: Chronic Plan: Hgb 6.3 on admission. Positive bleeding scan. H&H most recently 7.2 and 20.7, from this morning. Transfused 1 unit overnight. * 2 more units PRBC plan for today. * Continue to monitor (6) Alcohol dependence in early, early partial, sustained full, or sustained partial remission Status: Acute Plan: Last drink almost a week prior to admission. Has hx of w/d and requiring CIWA protocol. * CIWA protocol (7) Cirrhosis Status: Chronic Plan: Stable. * Continue EDIT[employer] PROJECT MANAGER Metoprolol 50mg daily * Continue EDIT[employer] PROJECT MANAGER Lasix 80mg daily (8) FEN/PPX Status: Acute Plan: FEN: - HLIV - Monitor replace electrolytes as needed - Renal diet PPX: DVT: Bilateral lower extremity SCDs, Chemoprophylaxis contraindicated to GI bleed GI: Protonix, Zofran prn for nausea Problem Qualifiers (1) GI bleed: Qualified Code: K92.1 - Gastrointestinal hemorrhage with melena (2) COPD (chronic obstructive pulmonary disease): Qualified Code: J44.9 - Chronic obstructive pulmonary disease, unspecified COPD type Kyle Joshi MD R1 Dec 12, 2016 11:04
--- NOTE | 2016-12-12 11:58 | HHI.GIFU ---
Subjective Remarks Resting in bed. Pt denies n/v/pain. He did have another episode of dark maroon bloody stool last night after 8pm. He states he has not had any further since that time. (Cassia Peterson) Objective Vitals I&O Vital Signs Date Time Temp Pulse Resp B/P Pulse Ox O2 Delivery O2 Flow Rate FiO2 12/12/16 09:31 99 21 12/12/16 08:23 Room Air 12/12/16 08:00 97.5 78 20 108/60 98 12/12/16 06:35 98.2 71 16 107/66 96 12/12/16 04:00 97.6 71 18 112/63 95 12/12/16 03:22 97.8 79 18 101/58 98 12/12/16 03:05 97.3 78 18 101/59 97 12/12/16 00:00 98.2 85 18 140/60 98 12/12/16 00:00 Room Air 12/11/16 21:28 83 12/11/16 20:00 97.9 75 16 108/65 100 12/11/16 20:00 Room Air 12/11/16 16:00 98.0 86 20 109/66 100 12/11/16 12:45 88 20 128/85 97 I/O 12/11/16 12/11/16 12/11/16 12/12/16 12/12/16 12/12/16 07:00 15:00 23:00 07:00 15:00 23:00 Intake Total 927 ml 600 ml 79 ml 484 ml Output Total 200 ml 4300 ml Balance 727 ml -3700 ml 79 ml 484 ml Intake Oral 480 ml 600 ml 120 ml IV Total 447 ml 79 ml 64 ml Packed Cells 300 ml Stool Total 200 ml Hemodialysis 4300 ml # Voids 3 4 0 # Bowel Movements 1 4 0 Laboratory Laboratory Tests Test 12/11/16 12/11/16 12/12/16 12/12/16 14:15 19:05 00:24 01:58 White Blood Count 3.9 Red Blood Count 2.36 Hemoglobin 7.6 7.8 6.1 Hematocrit 22.3 22.8 17.4 Mean Corpuscular Volume 94.6 Mean Corpuscular Hemoglobin 32.3 Mean Corpuscular Hemoglobin 34.2 Concent Red Cell Distribution Width 20.6 Platelet Count 158 Mean Platelet Volume 8.0 Neutrophils (%) (Auto) 71.4 Lymphocytes (%) (Auto) 16.1 Monocytes (%) (Auto) 11.1 Eosinophils (%) (Auto) 1.0 Basophils (%) (Auto) 0.4 Neutrophils # (Auto) 2.8 Lymphocytes # (Auto) 0.6 Monocytes # (Auto) 0.4 Eosinophils # (Auto) 0.0 Basophils # (Auto) 0.0 CBC Comment DIFF FINAL Differential Comment Sodium Level 138 Potassium Level 3.8 Chloride Level 99 Carbon Dioxide Level 29.5 Anion Gap 10 Blood Urea Nitrogen 48 Creatinine 4.38 Estimat Glomerular Filtration 14 Rate Random Glucose 115 Calcium Level 8.2 Total Bilirubin 0.4 Aspartate Amino Transf 20 (AST/SGOT) Alanine Aminotransferase 14 (ALT/SGPT) Alkaline Phosphatase 156 Total Protein 5.7 Albumin 2.4 Blood Type O POSITIVE Crossmatch Leukocyte-Reduced Red Blood Cells Blood Bank Comment Test 12/12/16 09:24 White Blood Count 3.5 Red Blood Count 2.22 Hemoglobin 7.2 Hematocrit 20.7 Mean Corpuscular Volume 93.1 Mean Corpuscular Hemoglobin 32.5 Mean Corpuscular Hemoglobin 34.9 Concent Red Cell Distribution Width 19.5 Platelet Count 160 Mean Platelet Volume 8.3 Neutrophils (%) (Auto) 65.4 Lymphocytes (%) (Auto) 20.7 Monocytes (%) (Auto) 11.5 Eosinophils (%) (Auto) 1.8 Basophils (%) (Auto) 0.6 Neutrophils # (Auto) 2.3 Lymphocytes # (Auto) 0.7 Monocytes # (Auto) 0.4 Eosinophils # (Auto) 0.1 Basophils # (Auto) 0.0 CBC Comment DIFF FINAL Differential Comment Sodium Level 135 Potassium Level 4.4 Chloride Level 96 Carbon Dioxide Level 28.3 Anion Gap 11 Blood Urea Nitrogen 75 Creatinine 6.33 Estimat Glomerular Filtration 9 Rate Random Glucose 118 Calcium Level 7.8 Total Bilirubin 0.3 Aspartate Amino Transf 16 (AST/SGOT) Alanine Aminotransferase 11 (ALT/SGPT) Alkaline Phosphatase 146 Total Protein 5.3 Albumin 2.2 Blood Type O POSITIVE Antibody Screen NEGATIVE Crossmatch Leukocyte-Reduced Red Blood Cells Blood Bank Comment Imaging Last Impressions Abdominal Angiography 12/10/16 0000 Signed Impressions: Service Date/Time: Saturday, December 10, 2016 15:03 - CONCLUSION: 1. The patient has had prior GDA embolization. This prevents antegrade evaluation and access of the feeder vessels to the third portion of the duodenum. 2. I did attempt to identify collateral vessels through the pancreatic or duodenal arcade off of the SMA but none were identified. No findings of active hemorrhage. Neymar Elias MD GI Bleed Scan Nuclear Medicine 12/09/16 0000 Signed Impressions: Service Date/Time: Friday, December 09, 2016 15:04 - CONCLUSION: Abnormal activity again noted in the left side of the abdomen. This could be related to activity from the stomach which then passes through the duodenum and into the proximal small bowel. Kyle Hicks MD Physical Exam HEENT: Normocephalic; atraumatic; no jaundice. CHEST: CTA CARDIAC: RRR ABDOMEN: Soft, nondistended, nontender; no hepatosplenomegaly; bowel sounds are present in all four quadrants. EXTREMITIES: No clubbing, cyanosis, or edema. SKIN: Normal; no rash; no jaundice. TELEPHONE ORDER SUPERVISOR: No focal deficits; alert and oriented times three. (Cassia Peterson [facility]) Assessment and Plan Plan ASSESSMENT: - Recurrent GI bleeding. Multiple hospitalizations for GI Bleeding with extensive workup. EGD (11/11/16)---> There was LA Class A esophagitis noted, there was erythematous gastritis in the gastric antrum, duodenal inflammation was found in the bulb and second portion of the duodenum, retroflexed views revealed a hiatal hernia. It was recommended that he undergo a colonoscopy, but the patient refused and insisted that this be done as outpatient and therefore he was discharged home, as his bleeding had stopped and he was clinically stable. Enteroscopy (11/23/16) ----> gastritis in the antrum, nodular mucosa in the duodenal bulb, scope advanced to mid jejunum, no blood up to that level, retroflex views revealed a hiatal hernia. Pathology revealed duodenal mucosa with no significant histopathologic abnormalities. The Pawan's glands are prominent. The villous architecture is normal. Gastric antral mucosa with reactive gastropathy, as may be seen with bile reflux or drug therapy. Colonoscopy with snare polypectomy (11/25/16)---> Colon polyp. Pathology revealed tubular adenoma. Small bowel follow-through (11/25/16) revealed unremarkable small bowel examination. He was also evaluated by Dr. Schulz and he was evaluated with unremarkable Meckel scan on 11/26/16. He returned with recurrent rectal bleeding. GI Bleed Scan Nuclear Medicine (12/09/16)----> Abnormal activity again noted in the left side of the abdomen. This could be related to activity from the stomach which then passes through the duodenum and into the proximal small bowel. S/P Enteroscopy (12/10/16)---> small ulceration/avm third portion of the duodenum, s/p 4 clips, no active bleeding, fresh blood in stomach, duodenum, washed, no further bleeding seen. Angiogram (12/10/16)---- > 1. The patient has had prior GDA embolization. This prevents antegrade evaluation and access of the feeder vessels to the third portion of the duodenum. 2. I did attempt to identify collateral vessels through the pancreatic or duodenal arcade off of the SMA but none were identified. No findings of active hemorrhage. Called office. He does not need approval for his capsule endoscopy and once he is closer to discharge, and plan was to call and schedule prior to patient leaving hospital so hopefully he can have this done prior to having repeat bleeding. However, he continues to have active bleeding. He had another episode last night after 8pm with mod-large amount of dark maroon bloody stool. HH dropped to 6.1/17.4. He received one unit and this came up to 7.2/20.7. He is getting an additional unit. Plan is for repeat EGD/Enteroscopy today and CM was consulted for tx to tertiary for double balloon enteroscopy. D/W Dr. Johsi, [facility] [place] is reviewing case at this time. - Anemia, acute blood loss. HH 7.2/20.7, S/P 6 units - ESRD on HD M/W/F - HTN, COPD per primary PLAN: - Plan for egd/enteroscopy today - NPO - Obtain consents - Protonix Gtt - Serial HH q6h - Transfuse as necessary - CM, assist with transfer to tertiary for double balloon enteroscopy. D/W CM. D/W Dr. Joshi - Further recommendations to follow based on results of above - Pt seen and examined by Dr. Marx and myself and this note is written on her behalf (Cassia Peterson) Physician Comments seen, examined agree with above patient will be transferred today for capsule endoscopy possible double balloon enteroscopy , if not transferred today we will proceed with enteroscopy surgery was alos consulted in case not transferred , IR nothing to offer at this point (Jolanta Marx MD) Cassia Peterson Dec 12, 2016 11:58 Jolanta Marx MD Dec 12, 2016 17:44
--- NOTE | 2016-12-12 14:05 | HHI.NPPN ---
Subjective General Problems: Anemia Renal Failure: Chronic, End Stage Renal Disease Interval History Anemia is worse today, Hb 6.1. To have panendoscopy today, currently NPO. 2 units PRBC ordered and being transfused currently. (Sharron Lebron) Review of Systems General Constitutional: Fatigue (Sharron Lebron) Gastrointestinal Gastrointestinal: Blood/Tarry Stools (Sharron Lebron) Objective Data Data 12/11/16 12/12/16 19:00 07:00 Intake Total 600 ml 563 ml Output Total 4300 ml Balance -3700 ml 563 ml Intake Oral 600 ml 120 ml IV Total 143 ml Packed Cells 300 ml Hemodialysis 4300 ml # Voids 4 0 # Bowel Movements 4 0 Vital Signs Date Time Temp Pulse Resp B/P Pulse Ox O2 Delivery O2 Flow Rate FiO2 12/12/16 12:00 97.5 63 20 106/66 100 12/12/16 09:31 99 21 12/12/16 08:23 Room Air 12/12/16 08:00 97.5 78 20 108/60 98 12/12/16 06:35 98.2 71 16 107/66 96 12/12/16 04:00 97.6 71 18 112/63 95 12/12/16 03:22 97.8 79 18 101/58 98 12/12/16 03:05 97.3 78 18 101/59 97 12/12/16 00:00 98.2 85 18 140/60 98 12/12/16 00:00 Room Air 12/11/16 21:28 83 12/11/16 20:00 97.9 75 16 108/65 100 12/11/16 20:00 Room Air 12/11/16 16:00 98.0 86 20 109/66 100 (Sharron Lebron) -: 12/12/16 0924 12/12/16 0924 Imaging Last 72 hours Impressions Abdominal Angiography 12/10/16 0000 Signed Impressions: Service Date/Time: Saturday, December 10, 2016 15:03 - CONCLUSION: 1. The patient has had prior GDA embolization. This prevents antegrade evaluation and access of the feeder vessels to the third portion of the duodenum. 2. I did attempt to identify collateral vessels through the pancreatic or duodenal arcade off of the SMA but none were identified. No findings of active hemorrhage. Neymar Elias MD (Sharron Lebron) Physical Exam General Appearance: No Acute Distress, Comfortable, Sleeping, Malnourished (Sharron Lebron) Throat Throat Exam: Oral Mucosa [place] & Moist (Sharron Lebron TAKE AWAY ATTENDANT) Neck Neck Exam: Neck Supple (Sharron Lebron TAKE AWAY ATTENDANT) Pulmonary Resp Exam: Clear Bilaterally (Sharron Lebron TAKE AWAY ATTENDANT) Cardiology CV Exam: Regular, Normal Sinus Rhythm, Good Perfusion (Sharron Lebron TAKE AWAY ATTENDANT) Gastrointestinal/Abdomen GI Exam: Soft, Non-Tender, Bowel Sounds Present (Sharron Lebron) Musculoskeletal MS Exam: Joints Intact, Normal Gait, Good Strength (Sharron Lebron) Integumentary Skin Exam: Warm, Dry (Sharron Lebron) Extremeties Extremities Exam: No Edema, Pedal Pulses Palpable (Sharron Lebron) Neurologic Neuro Exam: Alert, Awake, Oriented, Speech Clear, Moving All Extremities ( Sharron Lebron) Psychiatric Psych Exam: Appropriate Responses (Sharron Lebron) VTE Prophylaxis VTE Remarks contraindicated (Sharron Lebron) Assessment/Plan Discussed Condition With: Patient Assessment Summary: Anemia of CKD, Hypertension, End Stage Renal Disease Problem List: (1) ESRD Plan: Maintain M-- HD schedule, he had 4300 ml UF yesterday no electrolyte concerns fluid volume status acceptable, he is on lasix daily high protein diet he has AVF left arm that functions well avoid IVF, gadolinium renal panel in am (2) GI bleed Plan: GI following, NPO for endoscopy today surgeon consulted as well. transfuse as needed he is on protonix gtt (3) Anemia Plan: recurrent GIB, active 2 additional units ordered and being given today follow Hb also on Epogen with dialysis check iron profile in am (4) Hypertension, benign Plan: BP stable continue home medications (5) Metabolic bone disease Plan: continue Renvela with meals when no longer NPO check phos intermittently (Sharron Lebron) Plan patient was seen and examined. Continued bleeding. Poor prognosis. Surgery consulted. (Rubén Browne MD) Problem Qualifiers (1) GI bleed: Qualified Code: K92.1 - Gastrointestinal hemorrhage with melena Sharron Lebron Dec 12, 2016 14:04 Rubén Browne MD Dec 13, 2016 14:36
[2016-12-12] MEDS ORDERED: SEVEL800 PO (17:22)
--- NOTE | 2016-12-13 08:30 | MB ---
cc: CARISSA SHI MD DATE OF CONSULTATION 12/12/16 REASON FOR CONSULTATION GI bleed. HISTORY OF PRESENT ILLNESS The patient is a 61-year-old male with multiple medical issues who presented with bright red blood per rectum. He has end-stage renal disease on hemodialysis. He has had multiple issues with GI bleed in the past and has had ulcers duodenal bulb. He has been having further workup including EGD and colonoscopy. He was noted to have esophagitis, gastritis antrum and duodenal inflammation. He also has a hiatal hernia. He was evaluated with colonoscopy as well. The patient was initially anemic. He also has chronic anemia for which he is on Epo for, presented to the hospital noted several bloody bowel movements. He was transfused with initially 4 units of PRBCs. He is currently undergoing transfusion on my evaluation as well. He underwent IR angioembolization for bleed but was unable to find bleeding and evidently had a previous history of embolization to the GDA. Surgery was consulted for evaluation and further assist in management. On my exam, the patient is resting comfortably. Again, he is receiving one unit of PRBC. His recent hemoglobin was 7.2, prior to this 6.1, admission hemoglobin was 7.9. He again had some response to transfusion. He states minimal abdominal pain. He is neurologically intact and vitals are otherwise normal with a blood pressure of 138/69 and pulse of 65. PAST MEDICAL HISTORY 1. End-stage renal disease on dialysis 2. Bipolar 3. Chronic anemia 4. ETOH abuse 5. Adjustment disorder, 6. Congestive heart failure 7. Chronic obstructive pulmonary disease 8. Epilepsy 9. Gout. 10. Hypertensive nephropathy 11. Hypertension, 12. Peptic ulcer disease 13. Ascites. 14. Previous history of multiple GI bleed, 15. Colon polyps 16. Duodenal ulcer, 17. Gastritis. PAST SURGICAL HISTORY 1. Hernia repair 2. AV fistula placement 3. Hemodialysis catheter placement 4. Neck tumor removal 5. EGD and colonoscopy. ALLERGIES HALDOL THORAZINE WELLBUTRIN INVEGA LITHIUM RISPERDAL VALPROIC ACID. MEDICATIONS See EMR. FAMILY HISTORY Father with colon cancer SOCIAL HISTORY Occasional ETOH. Denies IVDA. REVIEW OF SYSTEMS GENERAL: Complains of fatigue and weight loss. HEENT: Denies eye pain, ear pain. RESPIRATORY: Denies cough or wheeze. CARDIOVASCULAR: Denies chest pain or palpitations. GI: Complaining of GI bleed, abdominal pain. Denies nausea, vomiting. MUSCULOSKELETAL: Denies arthritis, arthralgias. Complained of myalgias. HEMATOLOGIC: History of anemia NEUROLOGIC: Denies numbness. Denies headaches. PSYCHIATRIC: Denies confusion or change in sensorium. ENDOCRINE: Denies polyuria, polydipsia. : Denies dysuria, hematuria. INTEGUMENT: No masses or lesions. PHYSICAL EXAMINATION GENERAL: The patient in no acute distress. VITAL SIGNS: Temperature 98, pulse 65, respiration 22, blood pressure 138/69, saturation 97%. HEENT: PERRLA, EOMI. Pupils are equal, reactive. Clavicles nontender. HEART: S1, S2, regular rhythm. LUNGS: Bilateral expansion and no wheeze. ABDOMEN: Soft, minimal tenderness TO palpation. Well-healed surgical scars. EXTREMITIES: Left upper extremity AV fistula with dilation. Palpable bruit, palpable thrill. Warm, well-perfused. NEUROLOGIC: GCS of 15, moving all extremities. : Within normal limits. LABORATORY AND DIAGNOSTIC DATA WBC 3.5, hemoglobin 7.2, hematocrit 20.7, platelet count 160. Sodium 135, potassium 4.4, CO2 28.3, BUN 75, creatinine 6.3, AST 16, ALT 11, albumin 2.2. Coagulation - INR 0.9, PT 10.2 and PTT 27.8. IMAGING STUDIES Reviewed by myself. Angioembolization - history of GDA embolization, antegrade evaluation - access third portion of duodenum. Attempt to identify collateral pancreatic and duodenal arcades. SMA were not identified. No active extrav of contrast. GI bleeding scan - abnormal activity noted on left side of abdomen, possible stomach to duodenum into possible small bowel. ASSESSMENT The patient is a 61-year-old male, recent GI bleed, history of multiple GI bleeds, history of chronic anemia, multiple medical issues. PLAN After full radiologic and clinical laboratory workup, the patient with above-named complaints including GI bleed. The patient is currently under resuscitation receiving transfusion and somewhat having responsive to this. He has had no bloody bms overnight. He is planning to undergo an EGD this afternoon for further evaluation. He had previous EGD and colonoscopy as well. At this point, surgery will continue to follow the patient with nonoperative management, abdominal exams. We will continue to monitor hemoglobin. If precipitous drop in hemoglobins, the patient may warrant operative intervention including a possible resection. However, currently again we will continue to observe this and follow very closely. MD PARISA Larios/ /10:08 PM /8:22 AM MARIA DEL CARMEN
--- NOTE | 2017-02-03 05:35 | HHI.DS ---
Discharge Summary Admission Date Dec 09, 2016 at 13:32 Discharge Date: Dec 12, 2016 Admitting Diagnosis GI Bleed (1) GI bleed Diagnosis: Principal Plan: Pt has a complex past history of GI bleeding. Has history of prior large AVM and duodenal ulcers. He was most recently admitted in early October and diagnosed with "class A esophagitis" in the gastric antrum with duodenal inflammation. He also was recently noted to have a colon polyp which was removed 11/25. Recent small bowl follow-through 11/25 was reassuring. Bleeding scan positive in [facility]. * GI consulted, appreciate intervention and recommendations * Patient status post enteroscopy with clipping on 12/10, AVM/small ulcer and third portion of the duodenum * Embolization preformed, deemed to be medically necessary * Protonix gtt * Patient endorses episode of melena overnight, likely from previous bleed * Continue to monitor H&H, labs from this morning have not resulted * If pt continues to have recurrent bleeding, will transfer to tertiary care center for capsule endoscopy, possible double balloon enteroscopy * Tranfuse prn * Nothing by mouth for procedure (2) Anemia Diagnosis: Principal Plan: Hgb 6.3 on admission. Positive bleeding scan. H&H most recently 7.2 and 20.7, from this morning. Transfused 1 unit overnight. * 2 more units PRBC plan for today. * Continue to monitor (3) ESRD (end stage renal disease) on dialysis Diagnosis: Secondary Plan: Known to Dr. Schuster, dialysis scheduled on , , . Patient had 4.3 L intake from hemodialysis yesterday, 12/12/16. * Continue dialysis per nephrology * Continue Renvela 2400mg daily * Euvolemic on Lasix daily * High-protein diet * AVF left arm functions well * Avoid nephrotoxins * Follow renal function labs (4) Hypertension, benign Diagnosis: Secondary Plan: Continue [employer] Guanfacine 1mg HS * Clonidine 0.1mg prn BP >160/90 (5) COPD (chronic obstructive pulmonary disease) Diagnosis: Secondary Plan: Chronic. Currently asymptomatic. * Duonebs q4hrs prn sob/wheezing (6) Alcohol dependence in early, early partial, sustained full, or sustained partial remission Diagnosis: Secondary Plan: Last drink almost a week prior to admission. Has hx of w/d and requiring CIWA protocol. * CIWA protocol (7) Cirrhosis Diagnosis: Secondary Plan: Stable. * Continue [employer] Metoprolol 50mg daily * Continue [employer] Lasix 80mg daily (8) FEN/PPX Diagnosis: Secondary Plan: FEN: - HLIV - Monitor replace electrolytes as needed - Renal diet PPX: DVT: Bilateral lower extremity SCDs, Chemoprophylaxis contraindicated to GI bleed GI: Protonix, Zofran prn for nausea Consultants gastroenterology (GI), nephrology Brief History Patient is 61-year-old male with past medical history most significant for prior GI bleed including angiodysplasia status post embolization by IR, hypertension, ESRD on H/D, COPD, and alcohol abuse who presents to the hospital with concerns of bloody stools 3 today. Patient endorses 3 dark red stools beginning this afternoon. He denies any abdominal pain, nausea, vomiting, fevers, chills, chest pain, shortness of breath, or dizziness. He was most recently admitted in October and underwent panendoscopy at that time including colon polypectomy of a tubular adenoma and gastritis. A small bowl follow- through was reassuring. He is currently on a PPI. Imaging Last Impressions Abdominal Angiography 12/10/16 0000 Signed Impressions: Service Date/Time: Saturday, December 10, 2016 15:03 - CONCLUSION: 1. The patient has had prior GDA embolization. This prevents antegrade evaluation and access of the feeder vessels to the third portion of the duodenum. 2. I did attempt to identify collateral vessels through the pancreatic or duodenal arcade off of the SMA but none were identified. No findings of active hemorrhage. Neymar Elias MD GI Bleed Scan Nuclear Medicine 12/09/16 0000 Signed Impressions: Service Date/Time: Friday, December 09, 2016 15:04 - CONCLUSION: Abnormal activity again noted in the left side of the abdomen. This could be related to activity from the stomach which then passes through the duodenum and into the proximal small bowel. Kyle Hicks MD PE at Discharge GENERAL: This is a well-nourished, well-developed patient, laying comfortably in dialysis HEENT: Atraumatic. Normocephalic. Area of alopecia over right temporal region. Pupils equal round and reactive. Conjunctival pallor. Extraocular motions intact. No scleral icterus. Throat without erythema, tonsillar hypertrophy or exudate. Uvula midline. Airway patent. Mucous membranes pale. CARDIOVASCULAR: Regular rate and rhythm, 2/6 murmur RESPIRATORY: Anterior lung polo auscultated. Clear to auscultation. Breath sounds equal bilaterally. No wheezes, rales, or rhonchi. GASTROINTESTINAL: Abdomen soft, non-tender with light palpation, nondistended. No palpable masses. No guarding. MUSCULOSKELETAL: Extremities without clubbing, cyanosis, or edema. No joint tenderness, effusion, or edema noted. No calf tenderness. NEUROLOGICAL: Awake and alert, oriented to person place and time. Motor and sensory grossly within normal limits. Normal speech. Hospital Course Pt was admitted for GI bleed and anemia. Bleeding scan positive in [facility]. GI was consulted and took pt for enteroscopy with clipping on 12/10 of AVM/small ulcer and third portion of the duodenum and embolization was preformed, which was deemed to be medically necessary. Because pt continued to endorse melena and recurrent bleeding, transferred to tertiary care center for possible capsule endoscopy and/or double balloon enteroscopy. Pt was noted to have Hgb of 6.3 on admission. Transfused multiple units of PRBC as necessary to keep hgb over 7. Nephrology was also consulted because pt has ESRD on HD. Pt Condition on Discharge: Stable Discharge Disposition: Trnsfr to Other Facility Discharge Instructions DIET: Follow Instructions for: Renal Failure Diet Additional Diet Instructions: Nothing by mouth as instructed. Activities you can perform: Regular-No Restrictions Other Activity Instructions: Please take it easy until your bleeding has resolved. Follow up Referrals: Gastroenterology - 1 Week Physician - 1 Week New Medications: Sevelamer Carbonate (Renvela) 800 Mg Tab 2400 MG PO TIDAC #90 TAB Continued Medications: Cinacalcet (Sensipar) 30 Mg Tab 30 MG PO DAILY #30 Ref 0 TAB Fluticasone Propionate (Nasal) (Allergy Nasal [place] 24 Ho) 50 Mcg/Act Spr 50 BID Furosemide (Lasix) 80 Mg Tab 80 MG PO DAILY #30 Ref 0 TAB Guanfacine (Guanfacine) 1 Mg Tab 1 MG PO HS Do not crush, chew or divide tablet. Take with a meal. Blood Pressure Management #30 Ref 0 TAB Metoprolol Succinate ER 24 HR (Metoprolol Succinate ER 24 HR) 50 Mg Tab 50 MG PO DAILY #30 Ref 0 TAB Pantoprazole (Pantoprazole) 40 Mg Tab 40 MG PO Q12HR gastritis Days 30 TAB Vitamin B Cmplx/Vit C/Folic AC (Nephro-Leyla Rx) 1 Tab 1 CAP PO DAILY vitamin #30 TAB ([Renalsoftgel ]) 1 CAP PO DAILY Discontinued Medications: Sevelamer Carbonate (Renvela) 800 Mg Tab 2400 MG PO DIRECTED Control phosphorous levels #180 Ref 0 TAB Kyle Joshi MD R1 Feb 03, 2017 05:35
== END 2016-12-12 18:53 | disposition short-term general hospital (02) | DRG 377 ==
LOC: NEPC 11:18 → NEDA 13:32 → N04A 20:23
PROVIDERS: ADMIT Family Medicine; ATTEND Family Medicine
PROC: 5A1D60Z (ICD-10-PCS; 2016-12-09)
PROC: 30253N1 (ICD-10-PCS; 2016-12-09)
PROC: 0DB68ZX Excision of Stomach, Via Natural or Artificial Opening Endoscopic, Diagnostic (ICD-10-PCS; 2016-12-10)
PROC: 0DB98ZX Excision of Duodenum, Via Natural or Artificial Opening Endoscopic, Diagnostic (ICD-10-PCS; principal; 2016-12-10 12:30)
DX: K92.1 Melena (principal); N18.6 End stage renal disease; I12.0 Hypertensive chronic kidney disease with stage 5 chronic kidney disease or end stage renal disease; K74.60 Unspecified cirrhosis of liver; E46 Unspecified protein-calorie malnutrition; N25.81 Secondary hyperparathyroidism of renal origin; D62 Acute posthemorrhagic anemia; J44.9 Chronic obstructive pulmonary disease, unspecified; Z99.2 Dependence on renal dialysis; Z87.11 Personal history of peptic ulcer disease; K29.70 Gastritis, unspecified, without bleeding; K20.9 Esophagitis, unspecified; F10.21 Alcohol dependence, in remission; D63.1 Anemia in chronic kidney disease; G40.909 Epilepsy, unspecified, not intractable, without status epilepticus; K44.9 Diaphragmatic hernia without obstruction or gangrene; F31.9 Bipolar disorder, unspecified; M10.9 Gout, unspecified; Q27.33 Arteriovenous malformation of digestive system vessel; Z72.0 Tobacco use; Z86.010 Personal history of colon polyps; Z91.19 Patient's noncompliance with other medical treatment and regimen
CPT/HCPCS: 36247; 36248; 36430; 75726; 75774; 76937; 78278; 80053; 85014; 85018; 85025; 85610; 85730; 86850; 86900; 86901; 86920; 90935; 96374; 99152; 99153; 99291; A9560; C1769; C1887; C1894; C9113; J2250; J2270; J3010; J7030; J7050; P9016; Q4081; Q9967

== ENCOUNTER 2016-12-27 20:39 | Inpatient (IN) | payer MEDICARE, OTHER ==
[~2016-12-27] VITALS: Ht 188 cm; Wt 83.3 kg
[~2016-12-27 20:39] MED LIST changes: -ACYC800T PO; -CEPH-460 PO; +GLUCAGON 1 MG/ML VIAL IV ONE; +METO50TA11 PO
[2016-12-27 20:41] VITALS: BP 109/56; RESP 16; TEMP 97.5; O2SAT 88
[2016-12-27] MEDS ORDERED: PANTOPRAZOLE SODIUM 40 MG VIAL IVP ONE (21:30)
[2016-12-27] MEDS ORDERED: SODIUM CHLORIDE 0.9% FLUSH 5 ML FLUSH IVF PRN (21:30)
[2016-12-27] MEDS ORDERED: PROT40TA PO (21:31)
--- NOTE | 2016-12-27 21:33 | PD ---
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 Mata, for blood work. Patient states that Dr. Mata wanted his RBCs checked. Patient was recently admitted on December 09, 2016 for GI bleed. He was transferred to [facility] for further evaluation and to stop the GI bleed. He saw Dr. Marx here who was unable to stop the bleeding. He states he actually feels fine. He denies any shortness of breath or chest pain. No abdominal pain. No nausea or vomiting. No diarrhea or constipation. Patient denies any dizziness or lightheadedness. Patient does state that he has had some dark and tarry stools, but states he thought it was getting better since the bleeding stopped. Patient has end-stage renal disease on hemodialysis Friday, Friday, Friday by Dr. Mata. [facility] Past Medical History Hx Anticoagulant Therapy: No Anemia: Yes Arthritis: Yes Asthma: No Autoimmune Disease: No Blood Disorders: No Bipolar Disorder: Yes Anxiety: No Depression: No Heart Rhythm Problems: No Cancer: Yes (SKIN) Cardiovascular Problems: Yes (HTN) High Cholesterol: No Chemotherapy: Yes Chest Pain: No Congestive Heart Failure: No COPD: No Cerebrovascular Accident: No Diabetes: No Dialysis: Yes (FRI, FRI, FRI) Diminished Hearing: No Endocrine: No Gastrointestinal Disorders: Yes (GI BLEED) Genitourinary: Yes Hypertension: Yes Immune Disorder: No Implanted Vascular Access Dvce: Yes Kidney Stones: No Musculoskeletal: Yes Neurologic: No Psychiatric: No Reproductive: No Respiratory: No Immunizations Current: Yes Radiation Therapy: Yes Renal Failure: Yes Seizures: No Sickle Cell Disease: No Sleep Apnea: No Past Surgical History Abdominal Surgery: Yes (HERNIA REPAIR, STOMACH SURGERY, LESION IN COLON CAUTERIZED 11/2016(GIBLEED)) AICD: No Arteriovenous Shunt: No Body Medical Devices: DIALYSIS SHUNT IN LEFT ARM Cardiac Surgery: No Ear Surgery: No Endocrine Surgery: No Eye Surgery: No Genitourinary Surgery: No Hysterectomy: No Insulin Pump: No Joint Replacement: No Oral Surgery: No Pacemaker: No Thoracic Surgery: No Other Surgery: Yes (NECK SURGERY/TUMOR; L FISTULA, HERNIA REPAIR) Social History Alcohol Use: Yes ("NOT MUCH") Tobacco Use: Yes Substance Use: No Allergies-Medications (Allergen,Severity, Reaction): Coded Allergies: Chantix (Verified Allergy, Severe, Hypertension, 12/27/16) Haldol (Verified Allergy, Severe, SEIZURE, 12/27/16) Thorazine (Verified Allergy, Severe, SEIZURE, 12/27/16) Wellbutrin (Verified Allergy, Severe, SEIZURE, 12/27/16) Invega Sustenna (Verified Allergy, Unknown, 12/27/16) [place] (Verified Allergy, Unknown, 12/27/16) Risperdal (Verified Allergy, Unknown, 12/27/16) Valproic Acid (Verified Allergy, Unknown, 12/27/16) Reported Meds & Prescriptions Reported Meds & Active Scripts Active Renvela (Sevelamer Carbonate) 800 Mg Tab 2,400 Mg PO TIDAC Nephro-Leyla Rx (Vitamin B Cmplx/Vit C/Folic AC) 1 Tab 1 Cap PO DAILY Pantoprazole (Pantoprazole Sodium) 40 Mg Tab 40 Mg PO Q12HR 30 Days Reported Protonix (Pantoprazole Sodium) 40 Mg Tab 40 Mg PO DAILY Metoprolol Succinate ER 24 HR (Metoprolol Succinate) 50 Mg Tab 50 Mg PO DAILY Allergy Nasal [place] 24 Ho (Fluticasone Propionate (Nasal)) 50 Mcg/Act Spr 50 BID Guanfacine (Guanfacine HCl) 1 Mg Tab 1 Mg PO HS Do not crush, chew or divide tablet. Take with a meal. Lasix (Furosemide) 80 Mg Tab 80 Mg PO DAILY Sensipar (Cinacalcet) 30 Mg Tab 30 Mg PO DAILY [Renalsoftgel ] 1 Cap PO DAILY Review of Systems Except as stated in HPI: all other systems reviewed are Neg Physical Exam Narrative GENERAL: Well-developed well-nourished male patient, afebrile. SKIN: Warm and dry. HEAD: Normocephalic. Atraumatic. EYES: No scleral icterus. No injection or drainage. NECK: Supple, trachea midline. No JVD or lymphadenopathy. CARDIOVASCULAR: Regular rate and rhythm without murmurs, gallops, or rubs. RESPIRATORY: Breath sounds equal bilaterally. No accessory muscle use. Lungs sounds are clear to auscultation. GASTROINTESTINAL: Abdomen soft, non-tender, nondistended. No abdominal pain to palpation. MUSCULOSKELETAL: No cyanosis, or edema. BACK: Nontender without obvious deformity. No CVA tenderness. RECTAL EXAM: No masses or tenderness, stool is dark. Hemoccult was grossly positive. Rectal exam was done with the nurse at bedside. Data Data Last Documented VS Vital Signs Date Time Temp Pulse Resp B/P Pulse Ox O2 Delivery O2 Flow Rate FiO2 12/27/16 22:18 85 16 92/53 97 Room Air 12/27/16 20:41 97.5 Orders Complete Blood Count With Diff (12/27/16 21:26) Comprehensive Metabolic Panel (12/27/16 21:26) Prothrombin Time / Inr (Pt) (12/27/16 21:26) Act Partial Throm Time (Ptt) (12/27/16 21:26) Type And Screen (12/27/16 21:26) Ecg Monitoring (12/27/16 21:26) Iv Access Insert/Monitor (12/27/16 21:26) Oximetry (12/27/16 21:26) Pantoprazole Inj (Protonix Inj) (12/27/16 21:30) Sodium Chloride 0.9% Flush (Ns Flush) (12/27/16 21:30) Chest, Single Ap (12/27/16 ) Pantoprazole Inj (Protonix Inj) (12/27/16 22:45) Blood Product Administration .UPON TRANSFUSION (12/27/16 22:43) Sodium Chlor 0.9% 250 Ml Inj (Ns 250 Ml (12/27/16 22:45) Labs Laboratory Tests Test 12/27/16 22:19 White Blood Count 5.1 TH/MM3 Red Blood Count 1.40 MIL/MM3 Hemoglobin 4.5 GM/DL Hematocrit 13.0 % Mean Corpuscular Volume 93.1 FL Mean Corpuscular Hemoglobin 31.9 PG Mean Corpuscular Hemoglobin 34.3 % Concent Red Cell Distribution Width 16.7 % Platelet Count 265 TH/MM3 Mean Platelet Volume 7.8 FL Neutrophils (%) (Auto) 79.9 % Lymphocytes (%) (Auto) 9.5 % Monocytes (%) (Auto) 9.2 % Eosinophils (%) (Auto) 0.7 % Basophils (%) (Auto) 0.7 % Neutrophils # (Auto) 4.1 TH/MM3 Lymphocytes # (Auto) 0.5 TH/MM3 Monocytes # (Auto) 0.5 TH/MM3 Eosinophils # (Auto) 0.0 TH/MM3 Basophils # (Auto) 0.0 TH/MM3 CBC Comment AUTO DIFF Prothrombin Time 10.2 SEC Prothromb Time International 0.9 RATIO Ratio Activated Partial 25.6 SEC Thromboplast Time MDM Medical Decision Making Medical Screen Exam Complete: Yes Emergency Medical Condition: Yes Medical Record Reviewed: Yes Interpretation(s) chest x-ray - CONCLUSION: No acute disease. 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 Mata for possible anemia. Patient denies any complaints at this time. Hemoccult is grossly positive. CBC, CMP, PTT, PTT/INR, type and screen, chest x -ray ordered and pending. Patient is given Protonix 40 mg IV push. CBC shows hemoglobin for 4.5, hematocrit 13.0. CMP is pending. Coags are unremarkable. Chest x-ray shows no acute disease. Patient is placed on a Protonix drip. My attending physician, Dr. Obrien, notified gastroenterology and will admit patient went labs are resulted. Yoselin Becerril Dec 27, 2016 21:33
--- NOTE | 2016-12-27 22:07 | RADRPT ---
EXAM DATE/TIME: 12/27/2016 21:36 [place] COMPARISON: CHEST SINGLE AP, August 01, 2016, 13:39. INDICATIONS : Shortness of breath MEDICAL HISTORY : None. SURGICAL HISTORY : None. ENCOUNTER: Initial ACUITY: 1 day PAIN SCORE: 0/10 LOCATION: Bilateral chest FINDINGS: A single view of the chest demonstrates the lungs to be symmetrically aerated without evidence of mas s, infiltrate or effusion. Minimal scarring is seen in the left base. The cardiomediastinal contours are unremarkable. Osseous structures are intact. CONCLUSION: No acute disease. Warren Max MD on December 27, 2016 at 22:05 Board Certified Radiologist. This report was verified electronically.
[2016-12-27 22:18] VITALS: BP 92/53; PULSE 85; RESP 16; O2SAT 97
[2016-12-27 22:35] LABS: AUTOMATED NEUTROPHIL # 4.1 TH/MM3 (1.8-7.7); BASOPHIL % 0.7 % (0.0-2.0); EOSINOPHIL % 0.7 % (0.0-4.0); LYMPH % 9.5 % (9.0-44.0); LYMPHOCYTE # 0.5 TH/MM3 (1.0-4.8); MEAN CELL VOLUME 93.1 FL (80.0-100.0); MEAN CORPUSCULAR HEMOGLOBIN 31.9 PG (27.0-34.0); MEAN CORPUSCULAR HGB CONC 34.3 % (32.0-36.0); MONO % 9.2 % (0.0-8.0); NEUT % 79.9 % (16.0-70.0); PLATELET COUNT 265 TH/MM3 (150-450); RED CELL DISTRIBUTION WIDTH 16.7 % (11.6-17.2); WHITE BLOOD COUNT 5.1 TH/MM3 (4.0-11.0)
[2016-12-27 22:38] LABS: HEMO FLAGS AUTO DIFF
[2016-12-27 22:44] LABS: APTT (PATIENT) 25.6 SEC (24.3-30.1); INTERNATIONAL NORMALIZED RATIO 0.9 RATIO; PROTHROMBIN TIME - PATIENT 10.2 SEC (9.8-11.6)
[2016-12-27] MEDS ORDERED: PANTOPRAZOLE INJ 80 MG in SODIUM CHLORIDE 0.9% INJ 100 ML IV SCH (22:45)
[2016-12-27] MEDS ORDERED: SODIUM CHLOR 0.9% 250 ML INJ 250 ML IV ONE ×2 (22:45→23:15)
[2016-12-27 22:55] LABS: CALCIUM-PROTEIN CORRECTED 8.5 MG/DL (8.5-10.1); POTASSIUM 3.3 MEQ/L (3.5-5.1); TOTAL BILIRUBIN ADULT 0.2 MG/DL (0.2-1.0)
--- NOTE | 2016-12-27 23:07 | PD ---
Physical Exam Narrative I, Dr. Obrien, have reviewed the advance practice practitioner's documentation and am in agreement, met with the patient face to face, made the diagnosis, and the medical decision making was done by me. *My assessment and Findings: Patient is a 61 year old male who comes in due to rectal bleeding. He was noticed to have a low Hgb today at dialysis. He says he feels fine. He denies abdominal pain, palpitations, chest pain or SOB. Exam shows abdomen is soft, non-tender. There is gross blood per rectum. Data Data Last Documented VS Vital Signs Date Time Temp Pulse Resp B/P Pulse Ox O2 Delivery O2 Flow Rate FiO2 12/27/16 22:18 85 16 92/53 97 Room Air 12/27/16 20:41 97.5 Orders Complete Blood Count With Diff (12/27/16 21:26) Comprehensive Metabolic Panel (12/27/16 21:26) Prothrombin Time / Inr (Pt) (12/27/16 21:26) Act Partial Throm Time (Ptt) (12/27/16 21:26) Type And Screen (12/27/16 21:26) Ecg Monitoring (12/27/16 21:26) Iv Access Insert/Monitor (12/27/16 21:26) Oximetry (12/27/16 21:26) Pantoprazole Inj (Protonix Inj) (12/27/16 21:30) Sodium Chloride 0.9% Flush (Ns Flush) (12/27/16 21:30) Chest, Single Ap (12/27/16 ) Pantoprazole Inj (Protonix Inj) (12/27/16 22:45) Blood Product Administration .UPON TRANSFUSION (12/27/16 22:43) Sodium Chlor 0.9% 250 Ml Inj (Ns 250 Ml (12/27/16 22:45) Red Blood Cells (Rbc) (12/27/16 23:06) Sodium Chlor 0.9% 250 Ml Inj (Ns 250 Ml (12/27/16 23:15) Consult Nephrology (12/27/16 ) Hemoglobin (Hgb) (12/28/16 06:00) Hemoglobin (Hgb) (12/28/16 14:00) Pantoprazole Inj (Protonix Inj) (12/28/16 00:30) Pantoprazole Inj (Protonix Inj) (12/28/16 00:30) Admit Order (Ed Use Only) (12/27/16 ) Labs Laboratory Tests Test 12/27/16 12/27/16 22:19 23:06 White Blood Count 5.1 TH/MM3 Red Blood Count 1.40 MIL/MM3 Hemoglobin 4.5 GM/DL Hematocrit 13.0 % Mean Corpuscular Volume 93.1 FL Mean Corpuscular Hemoglobin 31.9 PG Mean Corpuscular Hemoglobin 34.3 % Concent Red Cell Distribution Width 16.7 % Platelet Count 265 TH/MM3 Mean Platelet Volume 7.8 FL Neutrophils (%) (Auto) 79.9 % Lymphocytes (%) (Auto) 9.5 % Monocytes (%) (Auto) 9.2 % Eosinophils (%) (Auto) 0.7 % Basophils (%) (Auto) 0.7 % Neutrophils # (Auto) 4.1 TH/MM3 Lymphocytes # (Auto) 0.5 TH/MM3 Monocytes # (Auto) 0.5 TH/MM3 Eosinophils # (Auto) 0.0 TH/MM3 Basophils # (Auto) 0.0 TH/MM3 CBC Comment AUTO DIFF Differential Comment AUTO DIFF CONFIRMED Prothrombin Time 10.2 SEC Prothromb Time International 0.9 RATIO Ratio Activated Partial 25.6 SEC Thromboplast Time Sodium Level 138 MEQ/L Potassium Level 3.3 MEQ/L Chloride Level 99 MEQ/L Carbon Dioxide Level 31.0 MEQ/L Anion Gap 8 MEQ/L Blood Urea Nitrogen 14 MG/DL Creatinine 2.74 MG/DL Estimat Glomerular Filtration 24 ML/MIN Rate Random Glucose 112 MG/DL Calcium Level 7.4 MG/DL Protein Corrected Calcium 8.5 MG/DL Total Bilirubin 0.2 MG/DL Aspartate Amino Transf 58 U/L (AST/SGOT) Alanine Aminotransferase 27 U/L (ALT/SGPT) Alkaline Phosphatase 286 U/L Total Protein 5.1 GM/DL Albumin 2.1 GM/DL Blood Type O POSITIVE Antibody Screen NEGATIVE Crossmatch Leukocyte-Reduced Red Blood Cells Blood Bank Comment MDM Supervised Visit with MAIRA: Yes Narrative Course IV established, patient placed on lithographic proofer. Labs show a Hgb of 4.5. Patient given [address] Moctezuma consulted from GI, will do colonoscopy in the morning. Patient given Protonix. Admitted to ICU. Diagnosis Primary Impression: GI (gastrointestinal bleed) Qualified Code: K92.2 - Gastrointestinal hemorrhage, unspecified gastrointestinal hemorrhage type Admitting Information Admitting Physician Requests: Admit Sonia Obrien MD Dec 27, 2016 23:07
--- NOTE | 2016-12-27 23:22 | HHI.HP ---
[facility] Service Critical Care Medicine Primary Care Physician Ivan Senior MD Admission Diagnosis Diagnosis: (1) GI bleed Diagnosis: Principal (2) Hypotension Diagnosis: Principal (3) Anemia requiring transfusions Diagnosis: Principal (4) ESRD (end stage renal disease) on dialysis Diagnosis: Secondary (5) Hypertension, benign Diagnosis: Secondary (6) Alcohol abuse Diagnosis: Secondary (7) COPD (chronic obstructive pulmonary disease) Diagnosis: Secondary Chief Complaint: Melanotic stools Severe anemia Travel History International Travel<30 Days: No Contact w/Intl Traveler <30 Da: No Traveled to Known Affected Are: No History of Present Illness 61-year-old male with past medical history significant for end-stage renal disease, recurrent GI bleed status post multiple EGDs enteroscopies and colonoscopies, embolization by IR, COPD, history of alcohol abuse who presented to the emergency department after being sent by Dr. Mata for anemia. In the ER patient was found to be profoundly anemic hemoglobin 4.5. 2 unit blood transfusion was ordered as the patient was hypotensive and critical care medicine was consulted for admission. ER doctor also consulted GI Dr. Giles Patient was recently admitted on December 09, 2016 for GI bleed, after work up was sent to [facility] for double balloon enteroscopy on 12/12/16 . Review GI notes from last admission shows that patient had multiple hospitalizations for GI Bleeding with extensive workup. EGD 11/11/16 showed esophagitis and gastritis. Enteroscopy 11/23/16 gastritis in the antrum. Colonoscopy with snare polypectomy 11/25/16 pathology revealed tubular adenoma. Patient was readmitted for GI bleed on 12/09/16 - Scan Nuclear Medicine (12/09/16) Abnormal activity again noted in the left side of the abdomen-most likely due to to activity from the stomach which then passes through the duodenum and into the proximal small bowel. S/P Enteroscopy 12/10/16- showed small ulceration/avm third portion of the duodenum, s/p 4 clips. Angiogram 12/10/16 showed that the patient has had prior GDA embolization. This prevents antegrade evaluation. As the patient continued to bleed, patient was discharged to [facility] for balloon enteroscopy. These records are not available for review I evaluated the patient in the ED. He appears to be in some distress. He states that he has noted melanotic stools for the last 4 days. Blood pressures in the 90s. RN is about to start the blood transfusions. I have placed the patient on 80 mg of IV Protonix followed by Protonix infusion. I have personally discussed with Dr. Giles as well. Plan is for an EGD enteroscopy and colonoscopy in a.m. Past Family Social History Allergies: Coded Allergies: Chantix (Verified Allergy, Severe, Hypertension, 12/27/16) Haldol (Verified Allergy, Severe, SEIZURE, 12/27/16) Thorazine (Verified Allergy, Severe, SEIZURE, 12/27/16) Wellbutrin (Verified Allergy, Severe, SEIZURE, 12/27/16) Invega Sustenna (Verified Allergy, Unknown, 12/27/16) [place] (Verified Allergy, Unknown, 12/27/16) Risperdal (Verified Allergy, Unknown, 12/27/16) Valproic Acid (Verified Allergy, Unknown, 12/27/16) Past Medical History Hypertension ESRDon more dialysis Ascitesof unknown etiology, most likely secondary to liver cirrhosis History of GI bleeds and Angiodysplasia s/p prior IR embolization History of duodenal ulcers/esophagitis/Gastritis Enteroscopy 12/10/16- showed small ulceration/avm third portion of the duodenum , s/p 4 clips. Angiogram 12/10/16 showed that the patient has had prior GDA embolization. COPD History of alcohol abuse Protein calorie malnutrition Past Surgical History Hernia repair AV fistula placements Dialysis catheter placement Neck tumor removal EGD and colonoscopy Embolization of AVM Reported Medications Renvela (Sevelamer Carbonate) 800 Mg Tab 2,400 Mg PO TIDAC Nephro-Leyla Rx (Vitamin B Cmplx/Vit C/Folic AC) 1 Tab 1 Cap PO DAILY Protonix (Pantoprazole Sodium) 40 Mg Tab 40 Mg PO DAILY Metoprolol Succinate ER 24 HR (Metoprolol Succinate) 50 Mg Tab 50 Mg PO DAILY Allergy Nasal [place] 24 Ho (Fluticasone Propionate (Nasal)) 50 Mcg/Act Spr 50 BID Guanfacine (Guanfacine HCl) 1 Mg Tab 1 Mg PO HS Lasix (Furosemide) 80 Mg Tab 80 Mg PO DAILY Sensipar (Cinacalcet) 30 Mg Tab 30 Mg PO DAILY [Renalsoftgel ] 1 Cap PO DAILY Active Ordered Medications Reviewed Family History Reviewed Social History History of alcohol abuse, claims that he drinks only occasionally now Smokes half packs of cigarettes daily Physical Exam Vital Signs Vital Signs Date Time Temp Pulse Resp B/P Pulse Ox O2 Delivery O2 Flow Rate FiO2 12/27/16 22:18 85 16 92/53 97 Room Air 12/27/16 20:41 97.5 16 109/56 88 Room Air Physical Exam GENERAL: Well-developed well-nourished male patient, afebrile. SKIN: Warm and dry. Pale HEAD: Normocephalic. Atraumatic. EYES: No scleral icterus. No injection or drainage. Conjunctiva pale NECK: Supple, trachea midline. No JVD or lymphadenopathy. CARDIOVASCULAR: Regular rate and rhythm without murmurs, gallops, or rubs. Hypotensive RESPIRATORY: Breath sounds equal bilaterally. No accessory muscle use. GASTROINTESTINAL: Abdomen soft, non-tender, mildly distended. No abdominal pain to palpation. MUSCULOSKELETAL: No cyanosis, 3+ pedal edema BACK: Nontender without obvious deformity. No CVA tenderness. RECTAL EXAM: Hemoccult was grossly positive in the ER NEURO: Patient is alert awake no focal deficits Laboratory Laboratory Tests Test 12/27/16 12/27/16 22:19 23:06 White Blood Count 5.1 Red Blood Count 1.40 Hemoglobin 4.5 Hematocrit 13.0 Mean Corpuscular Volume 93.1 Mean Corpuscular Hemoglobin 31.9 Mean Corpuscular Hemoglobin 34.3 Concent Red Cell Distribution Width 16.7 Platelet Count 265 Mean Platelet Volume 7.8 Neutrophils (%) (Auto) 79.9 Lymphocytes (%) (Auto) 9.5 Monocytes (%) (Auto) 9.2 Eosinophils (%) (Auto) 0.7 Basophils (%) (Auto) 0.7 Neutrophils # (Auto) 4.1 Lymphocytes # (Auto) 0.5 Monocytes # (Auto) 0.5 Eosinophils # (Auto) 0.0 Basophils # (Auto) 0.0 CBC Comment AUTO DIFF Prothrombin Time 10.2 Prothromb Time International 0.9 Ratio Activated Partial 25.6 Thromboplast Time Sodium Level 138 Potassium Level 3.3 Chloride Level 99 Carbon Dioxide Level 31.0 Anion Gap 8 Blood Urea Nitrogen 14 Creatinine 2.74 Estimat Glomerular Filtration 24 Rate Random Glucose 112 Calcium Level 7.4 Protein Corrected Calcium 8.5 Total Bilirubin 0.2 Aspartate Amino Transf 58 (AST/SGOT) Alanine Aminotransferase 27 (ALT/SGPT) Alkaline Phosphatase 286 Total Protein 5.1 Albumin 2.1 Blood Type O POSITIVE Antibody Screen NEGATIVE Crossmatch Leukocyte-Reduced Red Blood Cells Blood Bank Comment Result Diagram: 12/27/16221812/27/162218 Imaging Chest x-ray shows no acute disease Assessment and Plan Assessment and Plan PLAN Neuro: History of alcohol abuse -Patient states that, he does not drink heavily in these days -Supplement thiamine, watch for alcohol withdrawal RESP: COPD -DuoNeb every 4 hours when necessary -Incentive spirometry while awake CV: Hypotension -Monitor blood pressure/HR. note requiring any pressors at this time -Transfuse 2 units PRBC, 2 units at on hold GI/Heme: History of recurrent GI bleed (Hx of duodenal ulcers/esophagitis/Gastritis History of liver cirrhosis and ascites -GI Dr. Giles consulted. Plan for EGD, enteroscopy and colonoscopy in a.m. -Nothing by mouth, IV Protonix 80 mg 1 and 80 mg per hour -Transfuse 2 units PRBC and 2 on hold -History of GI bleeds due to Angiodysplasia s/p prior IR embolization/duodenal ulcers/esophagitis/Gastritis -Enteroscopy 12/10/16- showed small ulceration/avm third portion of the duodenum , s/p 4 clips. -Will request records from [facility] : ESRD on HD -HD per renal. Patient has left AV fistula. Received hemodialysis today -Dr. Mata is the blood donor unit assistant, consulted ID -Monitor for infection ENDO -replace electrolytes as needed PROPH: -Hold chemical DVT prophylaxis at this time due to anemia requiring transfusion , GI bleed. Lower extremity SCDs -Protonix 80mg IV x1 and 8 mg per hour CCT 55 MIN Code Status Full Discussed Condition With Dr. Allen. Dr. Giles Problem Qualifiers (1) GI bleed: Qualified Code: K92.2 - Gastrointestinal hemorrhage, unspecified gastrointestinal hemorrhage type (2) Hypotension: Qualified Code: I95.9 - Hypotension, unspecified hypotension type (3) COPD (chronic obstructive pulmonary disease): Krystal Astudillo MD Dec 27, 2016 23:22 ENDO -replace electrolytes as needed PROPH: -Hold chemical DVT prophylaxis at this time due to anemia requiring transfusion , GI bleed. Lower extremity SCDs -Protonix 80mg IV x1 and 8 mg per hour Problem Qualifiers (1) GI bleed: Qualified Code: K92.2 - Gastrointestinal hemorrhage, unspecified gastrointestinal hemorrhage type (2) Hypotension: Qualified Code: I95.9 - Hypotension, unspecified hypotension type (3) COPD (chronic obstructive pulmonary disease): Krystal Astudillo MD Dec 27, 2016 23:22
[2016-12-27 23:30] LABS: SCAN/DIFF AUTO DIFF CONFIRMED
[2016-12-27 23:45] VITALS: BP 92/57; PULSE 80; RESP 16; TEMP 98.3; O2SAT 99
[2016-12-27 23:49] VITALS: BP 104/64; PULSE 97; RESP 16; TEMP 98.3
[2016-12-28] VITALS (20 sets, daily range): BP systolic 96–128; BP diastolic 56–77; PULSE 73–96; RESP 13–22; TEMP 97.8–99.3; O2SAT 96–99
[2016-12-28] MEDS ORDERED: RESP: ALBUTEROL 2.5 MG/IPRATROPIUM 0.5 MG NEB (PRN) INH (00:15)
[2016-12-28] MEDS ORDERED: CHLORHEXIDINE GLUCONATE 2 % 1 PACK (2 CLOTHS) TOP PRN (00:15)
[2016-12-28] MEDS ORDERED: SODIUM CHLORIDE 0.9% FLUSH 5 ML FLUSH IV FLUSH PRN (00:15)
[2016-12-28] MEDS ORDERED: MISCELLANEOUS NURSING INFORMATION XX SCH (00:15)
[2016-12-28] MEDS ORDERED: PANTOPRAZOLE INJ 80 MG in SODIUM CHLORIDE 0.9% INJ 35 ML IV ONE (00:30)
[2016-12-28] MEDS: PANTOPRAZOLE INJ 80 MG in SODIUM CHLORIDE 0.9% INJ 100 ML IV SCH ×3 (00:30→19:53)
[2016-12-28] MEDS: CHLORHEXIDINE GLUCONATE 2 % 1 PACK (2 CLOTHS) TOP SCH (03:16)
--- NOTE | 2016-12-28 09:28 | HHI.CCPN ---
Subjective Remarks/Hospital Course 61-year-old male with past medical history significant for end-stage renal disease, recurrent GI bleed status post multiple EGDs enteroscopies and colonoscopies, embolization by IR, COPD, history of alcohol abuse who presented to the emergency department after being sent by Dr. Mata for anemia. In the ER patient was found to be profoundly anemic hemoglobin 4.5. 2 unit blood transfusion was ordered as the patient was hypotensive and critical care medicine was consulted for admission. ER doctor also consulted GI Dr. Giles Patient was recently admitted on December 09, 2016 for GI bleed, after work up was sent to [facility] for double balloon enteroscopy on 12/12/16 . Review GI notes from last admission shows that patient had multiple hospitalizations for GI Bleeding with extensive workup. EGD 11/11/16 showed esophagitis and gastritis. Enteroscopy 11/23/16 gastritis in the antrum. Colonoscopy with snare polypectomy 11/25/16 pathology revealed tubular adenoma. Patient was readmitted for GI bleed on 12/09/16 - Scan Nuclear Medicine (12/09/16) Abnormal activity again noted in the left side of the abdomen-most likely due to to activity from the stomach which then passes through the duodenum and into the proximal small bowel. S/P Enteroscopy 12/10/16- showed small ulceration/avm third portion of the duodenum, s/p 4 clips. Angiogram 12/10/16 showed that the patient has had prior GDA embolization. This prevents antegrade evaluation. As the patient continued to bleed, patient was discharged to [facility] for balloon enteroscopy. These records are not available for review I evaluated the patient in the ED. He appears to be in some distress. He states that he has noted melanotic stools for the last 4 days. Blood pressures in the 90s. RN is about to start the blood transfusions. I have placed the patient on 80 mg of IV Protonix followed by Protonix infusion. I have personally discussed with Dr. Giles as well. Plan is for an EGD enteroscopy and colonoscopy in a.m. 12/28 Patient s/pp transfusion 2u PRBC yesterday fro Hgb 4.5 repeat HGb 6.2 this morning. On Protonix drip. Objective Vital Signs Date Time Temp Pulse Resp B/P Pulse Ox O2 Delivery O2 Flow Rate FiO2 12/28/16 08:00 80 12/28/16 08:00 98.2 22 110/65 97 12/28/16 01:00 Room Air Result Diagram: 12/28/16 0452 12/27/16 2219 Other Results Laboratory Tests Test 12/27/16 12/27/16 12/28/16 22:19 23:06 04:52 White Blood Count 5.1 TH/MM3 Red Blood Count 1.40 MIL/MM3 Hemoglobin 4.5 GM/DL 6.2 GM/DL Hematocrit 13.0 % Mean Corpuscular Volume 93.1 FL Mean Corpuscular Hemoglobin 31.9 PG Mean Corpuscular Hemoglobin 34.3 % Concent Red Cell Distribution Width 16.7 % Platelet Count 265 TH/MM3 Mean Platelet Volume 7.8 FL Neutrophils (%) (Auto) 79.9 % Lymphocytes (%) (Auto) 9.5 % Monocytes (%) (Auto) 9.2 % Eosinophils (%) (Auto) 0.7 % Basophils (%) (Auto) 0.7 % Neutrophils # (Auto) 4.1 TH/MM3 Lymphocytes # (Auto) 0.5 TH/MM3 Monocytes # (Auto) 0.5 TH/MM3 Eosinophils # (Auto) 0.0 TH/MM3 Basophils # (Auto) 0.0 TH/MM3 CBC Comment AUTO DIFF Differential Comment AUTO DIFF CONFIRMED Prothrombin Time 10.2 SEC Prothromb Time International 0.9 RATIO Ratio Activated Partial 25.6 SEC Thromboplast Time Sodium Level 138 MEQ/L Potassium Level 3.3 MEQ/L Chloride Level 99 MEQ/L Carbon Dioxide Level 31.0 MEQ/L Anion Gap 8 MEQ/L Blood Urea Nitrogen 14 MG/DL Creatinine 2.74 MG/DL Estimat Glomerular Filtration 24 ML/MIN Rate Random Glucose 112 MG/DL Calcium Level 7.4 MG/DL Protein Corrected Calcium 8.5 MG/DL Total Bilirubin 0.2 MG/DL Aspartate Amino Transf 58 U/L (AST/SGOT) Alanine Aminotransferase 27 U/L (ALT/SGPT) Alkaline Phosphatase 286 U/L Total Protein 5.1 GM/DL Albumin 2.1 GM/DL Blood Type O POSITIVE Antibody Screen NEGATIVE Crossmatch Leukocyte-Reduced Red Blood Cells Blood Bank Comment Imaging Last Impressions Chest X-Ray 12/27/16 0000 Signed Impressions: Service Date/Time: Tuesday, December 27, 2016 21:36 - CONCLUSION: No acute disease. Warren Max MD Objective Remarks GENERAL: Well-developed well-nourished male patient, afebrile. SKIN: Warm and dry. Pale HEAD: Normocephalic. Atraumatic. EYES: No scleral icterus. No injection or drainage. Conjunctiva pale NECK: Supple, trachea midline. No JVD or lymphadenopathy. CARDIOVASCULAR: Regular rate and rhythm without murmurs, gallops, or rubs. Hypotensive RESPIRATORY: Breath sounds equal bilaterally. No accessory muscle use. GASTROINTESTINAL: Abdomen soft, non-tender, mildly distended. No abdominal pain to palpation. MUSCULOSKELETAL: No cyanosis, 3+ pedal edema BACK: Nontender without obvious deformity. No CVA tenderness. NEURO: Patient is alert awake no focal deficits A/P Assessment and Plan PLAN Neuro: History of alcohol abuse -Awake and alert RESP: COPD -Oxygen PRN keep sat >92% -DuoNeb every 4 hours when necessary -Incentive spirometry while awake CV: -Monitor HR and BP keep MAP>65mmHg GI/Heme: History of recurrent GI bleed (Hx of duodenal ulcers/esophagitis/Gastritis History of liver cirrhosis and ascites -GI Dr. Giles consulted. s/p EGD with cautery: Gastritis, Duodenitis , 2 AVM cauterized -NPO, IV Protonix drip -s/p Transfusion 2u PRBC will transfuse additional 2u PRBC for hgb 6.2 this morning -History of GI bleeds due to Angiodysplasia s/p prior IR embolization/duodenal ulcers/esophagitis/Gastritis -Enteroscopy 12/10/16- showed small ulceration/avm third portion of the duodenum , s/p 4 clips. Check US abdomen : ESRD on HD -Monitor renal function, avoid nephrotoxins -HD per renal. Patient has left AV fistula. Received hemodialysis 3/3 -Nephrology consulted. ID -Place on empiric abx Rocephin and monitor for signs of infection( fever, WBC) ENDO -SSI for glycemic control PROPH: -Hold chemical DVT prophylaxis at this time due to anemia requiring transfusion , GI bleed. Lower extremity SCDs -Protonix drip for GI prophylaxis Will sign off and transfer acre to [facility] Level 3 Cassia Bueno MD Dec 28, 2016 09:28
[2016-12-28] MEDS: INSULIN NovoLIN REGULAR SUPPLEMENTAL SCALE SQ SCH ×3 (09:30→20:06)
[2016-12-28] MEDS ORDERED: DEXTROSE 50% IN WATER 50 ML VIAL(D50) IV PUSH PRN (09:30)
[2016-12-28] MEDS ORDERED: GLUCAGON 1 MG/ML VIAL OTHER PRN (09:30)
[2016-12-28 10:26] LABS: AUTOMATED NEUTROPHIL # 3.5 TH/MM3 (1.8-7.7); BASOPHIL % 0.7 % (0.0-2.0); EOSINOPHIL # 0.1 TH/MM3 (0-0.4); EOSINOPHIL % 1.4 % (0.0-4.0); LYMPH % 14.9 % (9.0-44.0); LYMPHOCYTE # 0.7 TH/MM3 (1.0-4.8); MEAN CELL VOLUME 89.3 FL (80.0-100.0); MEAN CORPUSCULAR HEMOGLOBIN 31.6 PG (27.0-34.0); MEAN CORPUSCULAR HGB CONC 35.4 % (32.0-36.0); MONO % 10.4 % (0.0-8.0); NEUT % 72.6 % (16.0-70.0); PLATELET COUNT 225 TH/MM3 (150-450); RED BLOOD COUNT 2.01 MIL/MM3 (4.50-5.90); RED CELL DISTRIBUTION WIDTH 16.1 % (11.6-17.2); WHITE BLOOD COUNT 4.8 TH/MM3 (4.0-11.0)
[2016-12-28 10:30] LABS: HEMO FLAGS DIFF FINAL
[2016-12-28] MEDS: SODIUM CHLORIDE 0.9% FLUSH 5 ML FLUSH IV FLUSH SCH ×2 (10:46→19:53)
[2016-12-28] MEDS: TRIAMCINOLONE ACETONIDE 0.1% CREAM 15 GM TOPICAL SCH ×2 (10:46→20:06)
[2016-12-28] MEDS: cefTRIAXone INJ 1,000 MG in SODIUM CHLORIDE 0.9% INJ 100 ML IV SCH (10:46)
[2016-12-28 10:56] LABS: ANION GAP 9 MEQ/L (5-15); AST (GOT) 61 U/L (15-37); BLOOD UREA NITROGEN 23 MG/DL (7-18); CHLORIDE 100 MEQ/L (98-107); GLOMERULAR FILTRATION RATE 16 ML/MIN (>89); POTASSIUM 3.8 MEQ/L (3.5-5.1); SODIUM (NA) 139 MEQ/L (136-145)
[2016-12-28 10:57] LABS: ALKALINE PHOSPHATASE 263 U/L (45-117); ALT (GPT) 30 U/L (12-78); TOTAL BILIRUBIN ADULT 0.5 MG/DL (0.2-1.0)
--- NOTE | 2016-12-28 11:32 | PD.CONS ---
HPI History of Present Illness This is a 61 year old male patient with a hx of recurrent GI bleeding who was sent to the ER after he was found to have severe anemia at dialysis yesterday. On arrival to ER, he was noted to have an H&H of 4.5/13.0. He was given 3 units of packed red blood cells and his H&H is currently 6.4/18.0. He has had multiple hospitalizations for recurrent GI bleeding and has had extensive workup with EGD, Enteroscopy, Colonoscopy, and GDA embolization for bleeding duodenal ulcer in the past. He last had an enteroscopy (12/10/16)---> small ulceration/avm third portion of the duodenum, s/p 4 clips, no active bleeding, fresh blood in stomach, duodenum, washed, no further bleeding seen. Angiogram ()----> 1. The patient has had prior GDA embolization. This prevents antegrade evaluation and access of the feeder vessels to the third portion of the duodenum. 2. I did attempt to identify collateral vessels through the pancreatic or duodenal arcade off of the SMA but none were identified. No findings of active hemorrhage. The plan was for him to have a capsule endoscopy at the office as outpatient, but the patient always returned to the hospital prior to this being performed. He continued to have bleeding and therefore was transferred to [facility] for double balloon enteroscopy. We do not have the records for this, but the patient reports that he was hospitalized from 12/12- 12/21 and that he had EGD/Enteroscopy/Colonoscopy and reports that he was found to have bleeding on the wall of his colon. He reports that he was discharged on 12/21 and has continued to have dark tarry stools since that time. He has had intermittent fatigue, but denies any nausea , vomiting, hematemesis. He also denies any further red blood in his stool- which of note, was what he was experiencing prior to his transfer to [place]. The patient reports his appetite has been fine. He has not had any NSAIDs or ETOH. (Cassia Peterson) PFSH Past Medical History End-stage renal disease on hemodialysis Mondays, as Wednesdays, Fridays Bipolar disorder Chronic anemia Heavy alcohol use Adjustment disorder CHF COPD Epilepsy Gout Hypertensive nephropathy Hypertension Peptic ulcer disease Ascites History GI bleeding Multiple colon polyps- tubulovillous, tubular adenoma Duodenal ulcer Gastritis/esophagitis Hx Campylobacter diarrhea Past Surgical History Hernia repair AV fistula placements Dialysis catheter placement Neck tumor removal EGD and colonoscopy (Cassia Peterson) Coded Allergies: Chantix (Verified Allergy, Severe, Hypertension, 12/27/16) Haldol (Verified Allergy, Severe, SEIZURE, 12/27/16) Thorazine (Verified Allergy, Severe, SEIZURE, 12/27/16) Wellbutrin (Verified Allergy, Severe, SEIZURE, 12/27/16) Invega Sustenna (Verified Allergy, Unknown, 12/27/16) [place] (Verified Allergy, Unknown, 12/27/16) Risperdal (Verified Allergy, Unknown, 12/27/16) Valproic Acid (Verified Allergy, Unknown, 12/27/16) Medications Allergies Coded Allergies Type Severity Reaction Last Updated Verified Chantix Allergy Severe Hypertension 12/27/16 Yes Haldol Allergy Severe SEIZURE 12/27/16 Yes Thorazine Allergy Severe SEIZURE 12/27/16 Yes Wellbutrin Allergy Severe SEIZURE 12/27/16 Yes Invega Sustenna Allergy Unknown 12/27/16 Yes [place] Allergy Unknown 12/27/16 Yes Risperdal Allergy Unknown 12/27/16 Yes Valproic Acid Allergy Unknown 12/27/16 Yes Active Scripts Medications Dose Route/Sig Days Date Category Dose Instructions Protonix (Pantoprazole Sodium) 40 Mg Tab 40 Mg PO DAILY 12/27/16 Reported Renvela (Sevelamer Carbonate) 800 Mg Tab 2,400 Mg PO TIDAC 12/12/16 Rx Metoprolol Succinate ER 24 HR (Metoprolol Succinate) 50 Mg Tab 50 Mg PO DAILY 12/09/16 Reported Allergy Nasal [place] 24 Ho (Fluticasone Propionate (Nasal)) 50 Mcg/Act Spr 50 BID 11/24/16 Reported Nephro-Leyla Rx (Vitamin B Cmplx/Vit C/Folic AC) 1 Tab 1 Cap PO DAILY 11/12/16 Rx Pantoprazole (Pantoprazole Sodium) 40 Mg Tab 40 Mg PO Q12HR 30 11/12/16 Rx Guanfacine (Guanfacine HCl) 1 Mg Tab 1 Mg PO HS 11/11/16 Reported Do not crush, chew or divide tablet. Take with a meal. Lasix (Furosemide) 80 Mg Tab 80 Mg PO DAILY 11/11/16 Reported Sensipar (Cinacalcet) 30 Mg Tab 30 Mg PO DAILY 11/11/16 Reported [Renalsoftgel ] 1 Cap PO DAILY 11/11/16 Reported Family History Father from colon cancer in his 60's Social History Occasional ETOH use, but was still drinking "[employer]'s" earlier this month. No illicit drug use (Cassia Peterson) Review of Systems Constitutional: COMPLAINS OF: Fatigue, DENIES: Fever, Chills, Change in appetite Respiratory: DENIES: Cough Cardiovascular: DENIES: Chest pain Gastrointestinal: COMPLAINS OF: Black stools, Diarrhea, DENIES: Abdominal pain , Bloody stools, Constipation, Nausea, Vomiting, Heartburn Integumentary: DENIES: Abnormal pigmentation Hematologic/lymphatic: COMPLAINS OF: Bruising Neurologic: DENIES: Headache Psychiatric: DENIES: Confusion (Cassia Peterson) GI Exam Vitals I&O Vital Signs Date Time Temp Pulse Resp B/P Pulse Ox O2 Delivery O2 Flow Rate FiO2 12/28/16 08:00 80 12/28/16 08:00 98.2 80 22 110/65 97 12/28/16 06:00 82 12/28/16 04:00 97.8 77 20 101/62 98 12/28/16 04:00 77 12/28/16 03:19 97.8 82 20 117/76 98 12/28/16 02:00 98.4 96 16 106/71 12/28/16 01:30 98.7 80 16 101/62 98 12/28/16 01:00 98.0 87 16 106/69 99 Room Air 12/28/16 00:45 80 16 97/57 99 Room Air 12/28/16 00:30 77 16 106/61 98 Room Air 12/28/16 00:00 80 16 96/61 96 12/27/16 23:49 98.3 97 16 104/64 12/27/16 23:45 98.3 80 16 92/57 99 Room Air 12/27/16 22:18 85 16 92/53 97 Room Air 12/27/16 20:41 97.5 16 109/56 88 Room Air I/O 12/27/16 12/27/16 12/27/16 12/28/16 12/28/16 12/28/16 07:00 15:00 23:00 07:00 15:00 23:00 Intake Total 305 ml Balance 305 ml IV Total 55 ml Packed Cells 250 ml Imaging Last Impressions Chest X-Ray 12/27/16 0000 Signed Impressions: Service Date/Time: Tuesday, December 27, 2016 21:36 - CONCLUSION: No acute disease. Warren Max MD Laboratory Test 12/27/16 12/27/16 12/28/16 12/28/16 22:19 23:06 04:52 09:20 White Blood Count 5.1 TH/MM3 Red Blood Count 1.40 MIL/MM3 Hemoglobin 4.5 GM/DL 6.2 GM/DL Hematocrit 13.0 % Mean Corpuscular Volume 93.1 FL Mean Corpuscular Hemoglobin 31.9 PG Mean Corpuscular Hemoglobin 34.3 % Concent Red Cell Distribution Width 16.7 % Platelet Count 265 TH/MM3 Mean Platelet Volume 7.8 FL Neutrophils (%) (Auto) 79.9 % Lymphocytes (%) (Auto) 9.5 % Monocytes (%) (Auto) 9.2 % Eosinophils (%) (Auto) 0.7 % Basophils (%) (Auto) 0.7 % Neutrophils # (Auto) 4.1 TH/MM3 Lymphocytes # (Auto) 0.5 TH/MM3 Monocytes # (Auto) 0.5 TH/MM3 Eosinophils # (Auto) 0.0 TH/MM3 Basophils # (Auto) 0.0 TH/MM3 CBC Comment AUTO DIFF Differential Comment AUTO DIFF CONFIRMED Prothrombin Time 10.2 SEC Prothromb Time International 0.9 RATIO Ratio Activated Partial 25.6 SEC Thromboplast Time Sodium Level 138 MEQ/L Potassium Level 3.3 MEQ/L Chloride Level 99 MEQ/L Carbon Dioxide Level 31.0 MEQ/L Anion Gap 8 MEQ/L Blood Urea Nitrogen 14 MG/DL Creatinine 2.74 MG/DL Estimat Glomerular Filtration 24 ML/MIN Rate Random Glucose 112 MG/DL Calcium Level 7.4 MG/DL Protein Corrected Calcium 8.5 MG/DL Total Bilirubin 0.2 MG/DL Aspartate Amino Transf 58 U/L (AST/SGOT) Alanine Aminotransferase 27 U/L (ALT/SGPT) Alkaline Phosphatase 286 U/L Total Protein 5.1 GM/DL Albumin 2.1 GM/DL Blood Type O POSITIVE O POSITIVE Antibody Screen NEGATIVE Crossmatch Leukocyte-Reduced Leukocyte-Reduced Red Blood Red Blood Cells Cells Blood Bank Comment Test 12/28/16 10:10 White Blood Count 4.8 TH/MM3 Red Blood Count 2.01 MIL/MM3 Hemoglobin 6.4 GM/DL Hematocrit 18.0 % Mean Corpuscular Volume 89.3 FL Mean Corpuscular Hemoglobin 31.6 PG Mean Corpuscular Hemoglobin 35.4 % Concent Red Cell Distribution Width 16.1 % Platelet Count 225 TH/MM3 Mean Platelet Volume 7.7 FL Neutrophils (%) (Auto) 72.6 % Lymphocytes (%) (Auto) 14.9 % Monocytes (%) (Auto) 10.4 % Eosinophils (%) (Auto) 1.4 % Basophils (%) (Auto) 0.7 % Neutrophils # (Auto) 3.5 TH/MM3 Lymphocytes # (Auto) 0.7 TH/MM3 Monocytes # (Auto) 0.5 TH/MM3 Eosinophils # (Auto) 0.1 TH/MM3 Basophils # (Auto) 0.0 TH/MM3 CBC Comment DIFF FINAL Differential Comment Sodium Level 139 MEQ/L Potassium Level 3.8 MEQ/L Chloride Level 100 MEQ/L Carbon Dioxide Level 30.0 MEQ/L Anion Gap 9 MEQ/L Blood Urea Nitrogen 23 MG/DL Creatinine 3.94 MG/DL Estimat Glomerular Filtration 16 ML/MIN Rate Random Glucose 107 MG/DL Calcium Level 7.7 MG/DL Total Bilirubin 0.5 MG/DL Aspartate Amino Transf 61 U/L (AST/SGOT) Alanine Aminotransferase 30 U/L (ALT/SGPT) Alkaline Phosphatase 263 U/L Total Protein 4.7 GM/DL Albumin 1.8 GM/DL Physical Examination HEENT: Normocephalic; atraumatic; no jaundice. CHEST: CTA CARDIAC: RRR ABDOMEN: Soft, nondistended, nontender; no hepatosplenomegaly; bowel sounds are present in all four quadrants. EXTREMITIES: No clubbing, cyanosis, or edema. SKIN: Multiple cuts on bilateral hands, ecchymotic areas MEDICAL AFFAIRS MANAGER: No focal deficits; alert and oriented times three (Cassia Peterson) Assessment and Plan Plan ASSESSMENT: - Recurrent GIB. Pt has had multiple hospitalizations with extensive workup with prior EGD, Enteroscopy, Colonoscopy, and GDA embolization for bleeding duodenal ulcer in the past. He last had an enteroscopy at this facility on (12/10/16)---> small ulceration/avm third portion of the duodenum, s/p 4 clips, no active bleeding, fresh blood in stomach, duodenum, washed, no further bleeding seen. Angiogram (12/10/16)----> 1. The patient has had prior GDA embolization. This prevents antegrade evaluation and access of the feeder vessels to the third portion of the duodenum. 2. I did attempt to identify collateral vessels through the pancreatic or duodenal arcade off of the SMA but none were identified. No findings of active hemorrhage. Pt has not stayed out of the hospital long enough to have capsule endoscopy. During last hospitalization, he was transferred to tertiary for double balloon enteroscopy at [facility] for recurrent bleeding. We do not have the records for this, but the patient reports that he was hospitalized from 12/12- 12/21 and that he had EGD/Enteroscopy/Colonoscopy and reports that he was found to have bleeding on the wall of his colon. He reports that he was discharged on 12/21 and has continued to have dark tarry stools since that time. He was sent to hospital for severe anemia noted at outpatient HD. HH of 4.5/13.0 on admission. S/P 3 units PRBC. HH 6.4/18.0. He has not had any NSAIDs or ETOH. NPO. Will schedule EGD/Enteroscopy for today. NPO. Protonix Gtt. - Anemia, acute on chronic. S/P 3 units PRBC. HH 6.4/18.0. - ESRD on HD M/W/F - HTN, COPD per primary PLAN: - Plan for EGD/enteroscopy today - Obtain consents - Nothing by mouth after midnight - Protonix drip - Monitor H&H - Transfuse as necessary - Obtain records from [facility]- EGD, double balloon enteroscopy , colonoscopy. Of note, his nurse attempted to obtain these but the medical records office is closed until Friday - Supportive care - Further recommendations to follow based on results of above - Pt seen and examined by Dr. Giles and myself and this note is written on his behalf. (Cassia Peterson) Physician Comments Patient seen and examined Agree with above Continue with current supportive care Monitor labs and transfuse as needed We will proceed with enteroscopy next Further recommendations shall depend on findings (Jean-Pierre Giles MD) Cassia Peterson Dec 28, 2016 11:31 Jean-Pierre Giles MD Dec 28, 2016 13:38
--- NOTE | 2016-12-28 12:18 | PD.CONS ---
HPI Service Nephrology Consult Requested By Dr. Astudillo Reason for Consult ESRD Primary Care Physician Ivan Senior MD History of Present Illness Patient is a 61 year old male with ESRD, GI bleeding, anemia, Hypertension, admitted with GI bleeding, he goes on hemodialysis Friday, Friday, Friday and had full treatment yesterday, he is now admitted with GI bleed and GI consulted, he has previous angiogram done as well Past Family Social History Allergies: Coded Allergies: Chantix (Verified Allergy, Severe, Hypertension, 12/27/16) Haldol (Verified Allergy, Severe, SEIZURE, 12/27/16) Thorazine (Verified Allergy, Severe, SEIZURE, 12/27/16) Wellbutrin (Verified Allergy, Severe, SEIZURE, 12/27/16) Invega Sustenna (Verified Allergy, Unknown, 12/27/16) Coyote (Verified Allergy, Unknown, 12/27/16) Risperdal (Verified Allergy, Unknown, 12/27/16) Valproic Acid (Verified Allergy, Unknown, 12/27/16) Past Medical History End-stage renal disease on hemodialysis Mondays, as Wednesdays, Fridays Bipolar disorder Chronic anemia Heavy alcohol use Adjustment disorder CHF COPD Epilepsy Gout Hypertensive nephropathy Hypertension Peptic ulcer disease Ascites History GI bleeding Multiple colon polyps- tubulovillous, tubular adenoma Duodenal ulcer Gastritis/esophagitis Hx Campylobacter diarrhea Past Surgical History Hernia repair AV fistula placements Dialysis catheter placement Neck tumor removal EGD and colonoscopy Reported Medications Reported Meds & Active Scripts Active Renvela (Sevelamer Carbonate) 800 Mg Tab 2,400 Mg PO TIDAC Nephro-Leyla Rx (Vitamin B Cmplx/Vit C/Folic AC) 1 Tab 1 Cap PO DAILY Pantoprazole (Pantoprazole Sodium) 40 Mg Tab 40 Mg PO Q12HR 30 Days Reported Protonix (Pantoprazole Sodium) 40 Mg Tab 40 Mg PO DAILY Metoprolol Succinate ER 24 HR (Metoprolol Succinate) 50 Mg Tab 50 Mg PO DAILY Allergy Nasal Kerens 24 Ho (Fluticasone Propionate (Nasal)) 50 Mcg/Act Spr 50 BID Guanfacine (Guanfacine HCl) 1 Mg Tab 1 Mg PO HS Do not crush, chew or divide tablet. Take with a meal. Lasix (Furosemide) 80 Mg Tab 80 Mg PO DAILY Sensipar (Cinacalcet) 30 Mg Tab 30 Mg PO DAILY [Renalsoftgel ] 1 Cap PO DAILY Active Ordered Medications Current Medications Medications (Trade) Dose Ordered Sig/Shiela Route Start Time Stop Time Status Last Admin Sodium Chloride 250 ml @ 15 mls/hr ONCE ONCE IV 12/27/16 22:45 12/28/16 15:24 Sodium Chloride 250 ml @ 15 mls/hr ONCE ONCE IV 12/27/16 23:15 12/28/16 15:54 12/27/16 23:40 (Protonix Inj/NS Inj) 100 ml @ 10 mls/hr Q10H IV 12/28/16 00:30 12/28/16 10:46 (NS Flush) 2 ml UNSCH PRN IV FLUSH 12/28/16 00:15 (NS Flush) 2 ml BID IV FLUSH 12/28/16 09:00 12/28/16 10:46 Miscellaneous Information 1 Q361D XX 12/28/16 00:15 (Chlorhexidine 2% Cloth) 3 pack Taper DAILY@04 TOP 12/28/16 04:00 12/24/17 03:59 12/28/16 03:16 (Chlorhexidine 2% Cloth) 3 pack UNSCH PRN TOP 12/28/16 00:15 (Aristocort 0.1% Cream) 1 applic Q12HR TOPICAL 12/28/16 09:00 12/28/16 10:46 (D50w (Vial) Inj) 25 ml UNSCH PRN IV PUSH 12/28/16 09:30 (Glucagon Inj) 1 mg UNSCH PRN OTHER 12/28/16 09:30 Insulin Human Regular 1 1 Q6H SQ 12/28/16 09:30 (Rocephin Inj/NS Inj) 100 ml @ 200 mls/hr Q24H IV 12/28/16 10:00 12/28/16 10:46 Family History noncontributory Social History smoking Physical Exam Vital Signs Vital Signs Date Time Temp Pulse Resp B/P Pulse Ox O2 Delivery O2 Flow Rate FiO2 12/28/16 08:00 80 12/28/16 08:00 98.2 80 22 110/65 97 12/28/16 06:00 82 12/28/16 04:00 97.8 77 20 101/62 98 12/28/16 04:00 77 12/28/16 03:19 97.8 82 20 117/76 98 12/28/16 02:00 98.4 96 16 106/71 12/28/16 01:30 98.7 80 16 101/62 98 12/28/16 01:00 98.0 87 16 106/69 99 Room Air 12/28/16 00:45 80 16 97/57 99 Room Air 12/28/16 00:30 77 16 106/61 98 Room Air 12/28/16 00:00 80 16 96/61 96 12/27/16 23:49 98.3 97 16 104/64 12/27/16 23:45 98.3 80 16 92/57 99 Room Air 12/27/16 22:18 85 16 92/53 97 Room Air 12/27/16 20:41 97.5 16 109/56 88 Room Air Physical Exam GENERAL: Well-nourished, well-developed patient. SKIN: Warm and dry. HEAD: Normocephalic. EYES: No scleral icterus. No injection or drainage. NECK: Supple, trachea midline. No JVD or lymphadenopathy. CARDIOVASCULAR: Regular rate and rhythm without murmurs, gallops, or rubs. RESPIRATORY: Breath sounds equal bilaterally. No accessory muscle use. GASTROINTESTINAL: Abdomen soft, non-tender, nondistended. EXTREMITIES: No cyanosis, or edema. NEUROLOGICAL: Awake, alert, and oriented x 3. Non-focal. Laboratory Laboratory Tests Test 12/27/16 12/27/16 12/28/16 12/28/16 22:19 23:06 04:00 04:52 White Blood Count 5.1 Red Blood Count 1.40 Hemoglobin 4.5 6.2 Hematocrit 13.0 Mean Corpuscular Volume 93.1 Mean Corpuscular Hemoglobin 31.9 Mean Corpuscular Hemoglobin 34.3 Concent Red Cell Distribution Width 16.7 Platelet Count 265 Mean Platelet Volume 7.8 Neutrophils (%) (Auto) 79.9 Lymphocytes (%) (Auto) 9.5 Monocytes (%) (Auto) 9.2 Eosinophils (%) (Auto) 0.7 Basophils (%) (Auto) 0.7 Neutrophils # (Auto) 4.1 Lymphocytes # (Auto) 0.5 Monocytes # (Auto) 0.5 Eosinophils # (Auto) 0.0 Basophils # (Auto) 0.0 CBC Comment AUTO DIFF Differential Comment AUTO DIFF CONFIRMED Prothrombin Time 10.2 Prothromb Time International 0.9 Ratio Activated Partial 25.6 Thromboplast Time Sodium Level 138 Potassium Level 3.3 Chloride Level 99 Carbon Dioxide Level 31.0 Anion Gap 8 Blood Urea Nitrogen 14 Creatinine 2.74 Estimat Glomerular Filtration 24 Rate Random Glucose 112 Calcium Level 7.4 Protein Corrected Calcium 8.5 Total Bilirubin 0.2 Aspartate Amino Transf 58 (AST/SGOT) Alanine Aminotransferase 27 (ALT/SGPT) Alkaline Phosphatase 286 Total Protein 5.1 Albumin 2.1 Blood Type O POSITIVE Antibody Screen NEGATIVE Crossmatch Leukocyte-Reduced Red Blood Cells Blood Bank Comment Nasal Screen MRSA (PCR) NEGATIVE Test 12/28/16 12/28/16 09:20 10:10 Blood Type O POSITIVE Crossmatch Leukocyte-Reduced Red Blood Cells Blood Bank Comment White Blood Count 4.8 Red Blood Count 2.01 Hemoglobin 6.4 Hematocrit 18.0 Mean Corpuscular Volume 89.3 Mean Corpuscular Hemoglobin 31.6 Mean Corpuscular Hemoglobin 35.4 Concent Red Cell Distribution Width 16.1 Platelet Count 225 Mean Platelet Volume 7.7 Neutrophils (%) (Auto) 72.6 Lymphocytes (%) (Auto) 14.9 Monocytes (%) (Auto) 10.4 Eosinophils (%) (Auto) 1.4 Basophils (%) (Auto) 0.7 Neutrophils # (Auto) 3.5 Lymphocytes # (Auto) 0.7 Monocytes # (Auto) 0.5 Eosinophils # (Auto) 0.1 Basophils # (Auto) 0.0 CBC Comment DIFF FINAL Differential Comment Sodium Level 139 Potassium Level 3.8 Chloride Level 100 Carbon Dioxide Level 30.0 Anion Gap 9 Blood Urea Nitrogen 23 Creatinine 3.94 Estimat Glomerular Filtration 16 Rate Random Glucose 107 Calcium Level 7.7 Total Bilirubin 0.5 Aspartate Amino Transf 61 (AST/SGOT) Alanine Aminotransferase 30 (ALT/SGPT) Alkaline Phosphatase 263 Total Protein 4.7 Albumin 1.8 Result Diagram: 12/28/16 1010 12/28/16 1010 Imaging Last Impressions Chest X-Ray 12/27/16 0000 Signed Impressions: Service Date/Time: Tuesday, December 27, 2016 21:36 - CONCLUSION: No acute disease. Warren Max MD Assessment and Plan Problem List: (1) ESRD (end stage renal disease) on dialysis Plan: he is a Friday, Friday and Friday hemodialysis continue same schedule (2) GI bleed Plan: hb 4.5 - 6.4 GI is following (3) Hypertension, benign Plan: continue to monitor (4) Cirrhosis Plan: gi following Problem Qualifiers (1) GI bleed: Qualified Code: K92.2 - Gastrointestinal hemorrhage, unspecified gastrointestinal hemorrhage type Merna Simpson MD Dec 28, 2016 12:17
[2016-12-28] MEDS ORDERED: PROPOFOL 200 MG/20 ML AMP IV ONE (13:12)
--- NOTE | 2016-12-28 13:42 | PD.PROCEDR ---
GI Procedure REFERRING PHYSICIAN Dr. Astudillo PROCEDURE PERFORMED Enteroscopy with cautery INDICATION FOR PROCEDURE GI bleed and anemia PROCEDURE: The procedure, risks and benefits were discussed with Mr. Sage and informed consent was obtained. Anesthesia sedated him with Diprivan. He was placed in the left lateral decubitus position. Enteroscopy: The Pentax videoscope was introduced through the oropharynx and advanced to the mid to distal jejunum under direct visualization. Retroflexion was performed in the stomach. FINDINGS: The esophagus this was normal The stomach there was a moderate hiatal hernia the gastric mucosa appeared to be somewhat erythemic specifically in the antrum but no ulcerations no erosions no blood or bleeding The duodenum there was a nodularity with erythema noted in the duodenal bulb and proximal descending duodenum otherwise the rest of the duodenum was unremarkable and within normal limits The jejunum prior clips were noted in the proximal jejunum further downstream we noted two AVMs both were cauterized sufficiently otherwise jejunal mucosa was unremarkable and within normal limits ESTIMATED BLOOD LOSS: None SPECIMENS REMOVED: None COMPLICATIONS: None IMPRESSION: Hiatal hernia Gastritis Duodenitis Jejunal AVMs PLAN: Supportive care PPI Monitor labs and transfuse as needed Cautious with anticoagulation Consider outpatient capsule endoscopy Jean-Pierre Giles MD Dec 28, 2016 13:42
[2016-12-28 22:25] LABS: HEMATOCRIT 23.6 % (39.0-51.0); REVIEW FLAG FINAL
[2016-12-29] VITALS (14 sets, daily range): BP systolic 116–140; BP diastolic 67–93; PULSE 70–97; RESP 13–20; TEMP 96.5–99.1; O2SAT 97–100
--- NOTE | 2016-12-29 00:25 | RADRPT ---
EXAM DATE/TIME: 12/28/2016 18:52 [facility] COMPARISON: CT ABDOMEN & PELVIS W/O CONTRAST, November 11, 2016, 3:47. INDICATIONS : Abdomen pain. MEDICAL HISTORY : Hypertension. Arthritis. GI bleed. Renal failure. SURGICAL HISTORY : Hernia repair. Dialysis. Neck surgery. Left AV fistula. ENCOUNTER: Initial ACUITY: 1 day PAIN SCORE: 0/10 LOCATION: Abdomen. MEASUREMENTS: LIVER: 19.9 cm length COMMON DUCT: 7 mm RIGHT KIDNEY: 12.4 x 5.8 x 5.5 cm LEFT KIDNEY: 11.6 x 5.8 x 5.0 cm SPLEEN: 11.7 cm length AORTA: 3.0cm maximal FINDINGS: Moderate ascites. LIVER: No focal mass or biliary ductal dilatation. COMMON DUCT: No intraluminal mass or stone visualized. GALLBLADDER: Pronounced circumferential wall thickening. No definite mobile stones. PANCREAS: The visualized portions are within normal limits. RIGHT KIDNEY: Markedly increased cortical echogenicity. Scattered small cysts. No hydronephrosis. LEFT KIDNEY: Markedly increased cortical echogenicity. Scattered small cysts. No hydronephrosis. SPLEEN: No focal lesion. AORTA: Non aneurysmal. IVC: Within normal limits. CONCLUSION: Pronounced gallbladder wall thickening without definite stones. Ascites. End stage kidneys Baudilio Head MD on December 29, 2016 at 0:19 Board Certified Radiologist. This report was verified electronically.
[2016-12-29] MEDS: INSULIN NovoLIN REGULAR SUPPLEMENTAL SCALE SQ SCH ×4 (03:30→21:30)
[2016-12-29] MEDS: PANTOPRAZOLE INJ 80 MG in SODIUM CHLORIDE 0.9% INJ 100 ML IV SCH ×2 (03:50→17:18)
[2016-12-29] MEDS: CHLORHEXIDINE GLUCONATE 2 % 1 PACK (2 CLOTHS) TOP SCH (04:00)
[2016-12-29 05:25] LABS: BASOPHIL % 0.6 % (0.0-2.0); EOSINOPHIL # 0.1 TH/MM3 (0-0.4); EOSINOPHIL % 1.5 % (0.0-4.0); HEMO FLAGS DIFF FINAL; LYMPH % 14.8 % (9.0-44.0); LYMPHOCYTE # 0.8 TH/MM3 (1.0-4.8); MEAN CELL VOLUME 89.4 FL (80.0-100.0); MEAN CORPUSCULAR HEMOGLOBIN 30.6 PG (27.0-34.0); MEAN CORPUSCULAR HGB CONC 34.3 % (32.0-36.0); NEUT % 74.1 % (16.0-70.0); PLATELET COUNT 195 TH/MM3 (150-450); RED BLOOD COUNT 2.47 MIL/MM3 (4.50-5.90); RED CELL DISTRIBUTION WIDTH 15.9 % (11.6-17.2); WHITE BLOOD COUNT 5.4 TH/MM3 (4.0-11.0)
[2016-12-29 05:47] LABS: ALKALINE PHOSPHATASE 228 U/L (45-117); ALT (GPT) 28 U/L (12-78); ANION GAP 9 MEQ/L (5-15); AST (GOT) 50 U/L (15-37); BICARBONATE 29.6 MEQ/L (21.0-32.0); BLOOD UREA NITROGEN 36 MG/DL (7-18); CHLORIDE 102 MEQ/L (98-107); GLOMERULAR FILTRATION RATE 11 ML/MIN (>89); SODIUM (NA) 141 MEQ/L (136-145); TOTAL BILIRUBIN ADULT 0.3 MG/DL (0.2-1.0)
[2016-12-29] MEDS: SODIUM CHLORIDE 0.9% FLUSH 5 ML FLUSH IV FLUSH SCH ×2 (08:48→21:00)
[2016-12-29] MEDS: TRIAMCINOLONE ACETONIDE 0.1% CREAM 15 GM TOPICAL SCH ×2 (08:48→23:05)
[2016-12-29] MEDS: cefTRIAXone INJ 1,000 MG in SODIUM CHLORIDE 0.9% INJ 100 ML IV SCH (09:37)
[2016-12-29] MEDS ORDERED: LIDOCAINE HCL 1% 50 ML VIAL ONE (10:41)
--- NOTE | 2016-12-29 10:47 | HHI.PR ---
Subjective Remarks Follow-up GI bleed 12/29/16-patient seen and examined; no episode of GI bleed reported. Stable. Alert and oriented 3 and currently afebrile. Objective Vitals Vital Signs Date Time Temp Pulse Resp B/P Pulse Ox O2 Delivery O2 Flow Rate FiO2 12/29/16 10:00 88 12/29/16 08:30 98 12/29/16 08:00 75 12/29/16 08:00 98.7 75 13 125/68 98 12/29/16 06:00 70 12/29/16 04:00 76 12/29/16 04:00 99.1 73 19 118/67 97 12/29/16 02:00 91 12/29/16 00:00 99.0 78 13 125/74 98 12/29/16 00:00 79 12/28/16 22:00 84 12/28/16 20:00 99.3 73 21 128/77 97 12/28/16 20:00 73 12/28/16 18:00 77 12/28/16 17:40 81 18 122/69 97 12/28/16 16:00 98.2 75 13 102/66 99 12/28/16 16:00 75 12/28/16 14:00 77 12/28/16 13:51 98.0 78 20 102/58 98 Nasal Cannula 2 12/28/16 13:45 78 20 102/58 98 Nasal Cannula 2 12/28/16 13:36 98.0 83 20 89/55 98 Nasal Cannula 2 12/28/16 12:30 98.1 75 21 100/56 97 12/28/16 12:00 76 12/28/16 12:00 98.1 76 16 109/66 98 I/O 12/28/16 12/28/16 12/28/16 12/29/16 12/29/16 12/29/16 07:00 15:00 23:00 07:00 15:00 23:00 Intake Total 305 ml 692 ml 621 ml 231 ml Output Total 0 ml 0 ml 0 ml Balance 305 ml 692 ml 621 ml 231 ml IV Total 55 ml 92 ml 271 ml 231 ml Packed Cells 250 ml 350 ml Other 600 ml Output Urine Total 0 ml 0 ml 0 ml # Bowel Movements 0 0 1 Result Diagram: 12/29/1643012/29/16430 Imaging Last Impressions Abdomen Ultrasound 12/28/16 0000 Signed Impressions: Service Date/Time: Wednesday, December 28, 2016 18:52 - CONCLUSION: Pronounced gallbladder wall thickening without definite stones. Ascites. End stage kidneys Baudilio Head MD Chest X-Ray 12/27/16 0000 Signed Impressions: Service Date/Time: Tuesday, December 27, 2016 21:36 - CONCLUSION: No acute disease. Warren Max MD Objective Remarks GENERAL: NAD SKIN: Warm and dry. HEAD: Normocephalic. EYES: No scleral icterus. No injection or drainage. NECK: Supple, trachea midline. No JVD or lymphadenopathy. CARDIOVASCULAR: Regular rate and rhythm without murmurs, gallops, or rubs. RESPIRATORY: Breath sounds equal bilaterally. No accessory muscle use. GASTROINTESTINAL: Abdomen soft, non-tender, nondistended. MUSCULOSKELETAL: No cyanosis, or edema. AV fistula with good thrill left upper arm BACK: Nontender without obvious deformity. No CVA tenderness. A/P Problem List: (1) GI bleed ICD Code: K92.2 Status: Acute (2) Hypotension ICD Code: I95.9 Status: Acute (3) Anemia requiring transfusions ICD Code: D64.9 Status: Acute (4) ESRD (end stage renal disease) on dialysis ICD Code: N18.6 Status: Chronic (5) Hypertension, benign ICD Code: I10 Status: Chronic (6) Alcohol abuse ICD Code: F10.10 Status: Chronic (7) COPD (chronic obstructive pulmonary disease) ICD Code: J44.9 Status: Chronic Assessment and Plan 61-year-old man with History of recurrent GI bleed (Hx of duodenal ulcers/esophagitis/Gastritis History of liver cirrhosis and ascites -GI Dr. Giles consulted. s/p EGD with cautery: Gastritis, Duodenitis , 2 AVM cauterized. Currently on IV Protonix drip, will switch to by mouth 40 mg twice a day -s/p Transfusion total of 4u PRBC since admission -Monitor H&H and transfuse for hemoglobin less than 7 History of alcohol abuse -Awake and alert COPD-no exacerbation -Oxygen PRN keep sat >92% -DuoNeb every 4 hours when necessary -Incentive spirometry while awake ESRD on HD --HD per renal. Patient has left AV fistula. Received hemodialysis 3/3 -Monitor renal function, avoid nephrotoxins including Lasix -Resumed Renvela Hypertension: BP soft, continue to hold Lopressor twice a day and Lasix PROPH: -Hold chemical DVT prophylaxis at this time due to anemia requiring transfusion , GI bleed. Lower extremity SCDs -Protonix drip for GI prophylaxis Discharge Planning Discharge with home health care 12/30/16 after HD Problem Qualifiers (1) GI bleed: Qualified Code: K92.2 - Gastrointestinal hemorrhage, unspecified gastrointestinal hemorrhage type (2) Hypotension: Qualified Code: I95.9 - Hypotension, unspecified hypotension type (3) COPD (chronic obstructive pulmonary disease): Hector Ro MD Dec 29, 2016 10:47
--- NOTE | 2016-12-29 10:49 | HHI.FF ---
Face to Face Verification Diagnosis: (1) Anemia (2) ESRD (3) GI bleed (4) ESRD (end stage renal disease) on dialysis Physical Therapy Order: Evaluate and Treat Home Health Nursing Order: Signs/symptoms of disease process I have seen patient Johnathon Sage on 12/29/16. My clinical findings support the need for the requested home health care services because: Deconditioned w/ increased weakness I certify that my clinical findings support that this patient is homebound because: Poor cardiac reserve Hector Ro MD Dec 29, 2016 10:49
[2016-12-29] MEDS: SEVELAMER CARBONATE 800 MG TAB PO SCH ×2 (12:07→17:17)
--- NOTE | 2016-12-29 14:16 | HHI.NPPN ---
Objective Data Data 12/28/16 12/29/16 19:00 07:00 Intake Total 692 ml 852 ml Output Total 0 ml 0 ml Balance 692 ml 852 ml IV Total 92 ml 502 ml Packed Cells 350 ml Other 600 ml Output Urine Total 0 ml 0 ml # Bowel Movements 0 1 Vital Signs Date Time Temp Pulse Resp B/P Pulse Ox O2 Delivery O2 Flow Rate FiO2 12/29/16 13:39 97.6 88 20 133/80 97 12/29/16 12:00 83 12/29/16 12:00 97.4 83 18 116/72 99 12/29/16 10:00 88 12/29/16 08:30 98 12/29/16 08:00 75 12/29/16 08:00 98.7 75 13 125/68 98 12/29/16 06:00 70 12/29/16 04:00 76 12/29/16 04:00 99.1 73 19 118/67 97 12/29/16 02:00 91 12/29/16 00:00 99.0 78 13 125/74 98 12/29/16 00:00 79 12/28/16 22:00 84 12/28/16 20:00 99.3 73 21 128/77 97 12/28/16 20:00 73 12/28/16 18:00 77 12/28/16 17:40 81 18 122/69 97 12/28/16 16:00 98.2 75 13 102/66 99 12/28/16 16:00 75 -: 12/29/16 0431 12/29/16 0431 Assessment/Plan Problem List: (1) ESRD (end stage renal disease) on dialysis Plan: he is a Friday, Friday and Friday hemodialysis continue same schedule (2) GI bleed Plan: hb 4.5 - 6.4 --7.6 GI is following (3) Hypertension, benign Plan: continue to monitor (4) Cirrhosis Plan: gi following Problem Qualifiers (1) GI bleed: Qualified Code: K92.2 - Gastrointestinal hemorrhage, unspecified gastrointestinal hemorrhage type Merna Simpson MD Dec 29, 2016 14:16
--- NOTE | 2016-12-29 16:56 | HHI.GIFU ---
Subjective Remarks Resting in bed. No active bleeding. Tolerating clear liquid diet. Would like this advanced. (Cassia Peterson) Objective Vitals I&O Vital Signs Date Time Temp Pulse Resp B/P Pulse Ox O2 Delivery O2 Flow Rate FiO2 12/29/16 14:48 97 12/29/16 13:39 97.6 88 20 133/80 97 12/29/16 12:00 83 12/29/16 12:00 97.4 83 18 116/72 99 12/29/16 10:00 88 12/29/16 08:30 98 12/29/16 08:00 75 12/29/16 08:00 98.7 75 13 125/68 98 12/29/16 06:00 70 12/29/16 04:00 76 12/29/16 04:00 99.1 73 19 118/67 97 12/29/16 02:00 91 12/29/16 00:00 99.0 78 13 125/74 98 12/29/16 00:00 79 12/28/16 22:00 84 12/28/16 20:00 99.3 73 21 128/77 97 12/28/16 20:00 73 12/28/16 18:00 77 12/28/16 17:40 81 18 122/69 97 I/O 12/28/16 12/28/16 12/28/16 12/29/16 12/29/16 12/29/16 07:00 15:00 23:00 07:00 15:00 23:00 Intake Total 305 ml 692 ml 621 ml 231 ml 80 ml Output Total 0 ml 0 ml 0 ml Balance 305 ml 692 ml 621 ml 231 ml 80 ml IV Total 55 ml 92 ml 271 ml 231 ml 80 ml Packed Cells 250 ml 350 ml Other 600 ml Output Urine Total 0 ml 0 ml 0 ml # Bowel Movements 0 0 1 Laboratory Laboratory Tests Test 12/28/16 12/28/16 12/29/16 17:00 21:34 04:31 Blood Type O POSITIVE Crossmatch Leukocyte-Reduced Red Blood Cells Blood Bank Comment Hemoglobin 8.2 7.6 Hematocrit 23.6 22.0 White Blood Count 5.4 Red Blood Count 2.47 Mean Corpuscular Volume 89.4 Mean Corpuscular Hemoglobin 30.6 Mean Corpuscular Hemoglobin 34.3 Concent Red Cell Distribution Width 15.9 Platelet Count 195 Mean Platelet Volume 8.1 Neutrophils (%) (Auto) 74.1 Lymphocytes (%) (Auto) 14.8 Monocytes (%) (Auto) 9.0 Eosinophils (%) (Auto) 1.5 Basophils (%) (Auto) 0.6 Neutrophils # (Auto) 4.0 Lymphocytes # (Auto) 0.8 Monocytes # (Auto) 0.5 Eosinophils # (Auto) 0.1 Basophils # (Auto) 0.0 CBC Comment DIFF FINAL Differential Comment Sodium Level 141 Potassium Level 4.0 Chloride Level 102 Carbon Dioxide Level 29.6 Anion Gap 9 Blood Urea Nitrogen 36 Creatinine 5.21 Estimat Glomerular Filtration 11 Rate Random Glucose 85 Calcium Level 7.6 Total Bilirubin 0.3 Aspartate Amino Transf 50 (AST/SGOT) Alanine Aminotransferase 28 (ALT/SGPT) Alkaline Phosphatase 228 Total Protein 4.4 Albumin 1.7 Imaging Last Impressions Abdomen Ultrasound 12/28/16 0000 Signed Impressions: Service Date/Time: Wednesday, December 28, 2016 18:52 - CONCLUSION: Pronounced gallbladder wall thickening without definite stones. Ascites. End stage kidneys Baudilio Head MD Chest X-Ray 12/27/16 0000 Signed Impressions: Service Date/Time: Tuesday, December 27, 2016 21:36 - CONCLUSION: No acute disease. Warren Max MD Physical Exam HEENT: Normocephalic; atraumatic; no jaundice. CHEST: CTA CARDIAC: RRR ABDOMEN: Soft, nondistended, nontender; no hepatosplenomegaly; bowel sounds are present in all four quadrants. EXTREMITIES: No clubbing, cyanosis, or edema. SKIN: Multiple ecchymotic areas ELECTROLESS PLATER: No focal deficits; alert and oriented times three. (Cassia Peterson [facility]) Assessment and Plan Plan ASSESSMENT: - Recurrent GIB. Pt has had multiple hospitalizations with extensive workup with prior EGD, Enteroscopy, Colonoscopy, and GDA embolization for bleeding duodenal ulcer in the past. He last had an enteroscopy at this facility on (12/10/16)---> small ulceration/avm third portion of the duodenum, s/p 4 clips, no active bleeding, fresh blood in stomach, duodenum, washed, no further bleeding seen. Angiogram (12/10/16)----> 1. The patient has had prior GDA embolization. This prevents antegrade evaluation and access of the feeder vessels to the third portion of the duodenum. 2. I did attempt to identify collateral vessels through the pancreatic or duodenal arcade off of the SMA but none were identified. No findings of active hemorrhage. Pt has not stayed out of the hospital long enough to have capsule endoscopy. During last hospitalization, he was transferred to tertiary for double balloon enteroscopy at [facility] for recurrent bleeding. We do not have the records for this, but the patient reports that he was hospitalized from 12/12- 12/21 and that he had EGD/Enteroscopy/Colonoscopy and reports that he was found to have bleeding on the wall of his colon. He reports that he was discharged on 12/21 and has continued to have dark tarry stools since that time. He was sent to hospital for severe anemia noted at outpatient HD. HH of 4.5/13.0 on admission. S/P 5 units PRBC. S/P EGD with cauterization of AVMs (12/28/16)----> Hiatal hernia, Gastritis, Duodenitis, Jejunal AVMs- S/P cauterization. No further bleeding. HH 7.6/22.0. Tolerating clears, would like this advanced. - Anemia, acute on chronic. S/P 5 units PRBC. HH 7.6/22.0. - ESRD on HD M/W/F - HTN, COPD per primary PLAN: - Renal diet - Protonix drip - Monitor H&H - Transfuse as necessary - Obtain records from [facility]- EGD, double balloon enteroscopy , colonoscopy. Of note, his nurse attempted to obtain these but the medical records office is closed until Friday - Capsule endoscopy as outpatient - Avoid anticoagulation - Supportive care - Further recommendations to follow based on results of above - Pt seen and examined by Dr. Giles and myself and this note is written on his behalf. (Cassia Peterson) Physician Comments Patient Seen and examined Agree with above Continue with current supportive care Monitor labs Recommend outpatient capsule endoscopy (Jean-Pierre Giles MD) Cassia Peterson Dec 29, 2016 16:56 Jean-Pierre Giles MD Dec 29, 2016 20:06
[2016-12-30] VITALS (11 sets, daily range): BP systolic 102–132; BP diastolic 66–79; PULSE 77–124; RESP 16–18; TEMP 96.5–98.1; O2SAT 94–100
[2016-12-30] MEDS: INSULIN NovoLIN REGULAR SUPPLEMENTAL SCALE SQ SCH ×4 (03:30→22:12)
[2016-12-30] MEDS: CHLORHEXIDINE GLUCONATE 2 % 1 PACK (2 CLOTHS) TOP SCH (04:00)
[2016-12-30 08:02] LABS: AUTOMATED NEUTROPHIL # 3.2 TH/MM3 (1.8-7.7); BASOPHIL % 0.4 % (0.0-2.0); EOSINOPHIL # 0.1 TH/MM3 (0-0.4); LYMPHOCYTE # 0.6 TH/MM3 (1.0-4.8); MEAN CELL VOLUME 93.1 FL (80.0-100.0); MEAN CORPUSCULAR HGB CONC 33.2 % (32.0-36.0); MONO % 8.8 % (0.0-8.0); NEUT % 74.8 % (16.0-70.0); PLATELET COUNT 163 TH/MM3 (150-450); WHITE BLOOD COUNT 4.2 TH/MM3 (4.0-11.0)
[2016-12-30 08:05] LABS: HEMO FLAGS DIFF FINAL
[2016-12-30 08:07] LABS: HEMATOCRIT 16.8 % (39.0-51.0)
[2016-12-30 08:25] LABS: BICARBONATE 26.7 MEQ/L (21.0-32.0); POTASSIUM 4.6 MEQ/L (3.5-5.1)
[2016-12-30] MEDS ORDERED: SODIUM CHLOR 0.9% 250 ML INJ 250 ML IV ONE ×2 (08:30→23:00)
[2016-12-30] MEDS: PANTOPRAZOLE SOD 40 MG DELAYED RELEASE TAB PO SCH ×2 (08:36→22:07)
[2016-12-30] MEDS: SODIUM CHLORIDE 0.9% FLUSH 5 ML FLUSH IV FLUSH SCH ×2 (08:36→22:12)
[2016-12-30] MEDS: TRIAMCINOLONE ACETONIDE 0.1% CREAM 15 GM TOPICAL SCH ×2 (08:36→22:08)
[2016-12-30] MEDS: SEVELAMER CARBONATE 800 MG TAB PO SCH ×3 (08:36→17:00)
[2016-12-30] MEDS: cefTRIAXone INJ 1,000 MG in SODIUM CHLORIDE 0.9% INJ 100 ML IV SCH (10:29)
[2016-12-30 11:40] LABS: PROTHROMBIN TIME - PATIENT 10.9 SEC (9.8-11.6)
--- NOTE | 2016-12-30 11:50 | HHI.NPPN ---
Subjective General Problems: Anemia, Edema Renal Failure: Chronic Interval History He is restless today. Severely anemic. Due for dialysis. (Sharron Lebron) Review of Systems Gastrointestinal Gastrointestinal: Blood/Tarry Stools (Sharron Lebron) Objective Data Data 12/29/16 12/30/16 19:00 07:00 Intake Total 680 ml 720 ml Balance 680 ml 720 ml Intake Oral 600 ml 720 ml IV Total 80 ml # Voids 0 2 # Bowel Movements 2 Vital Signs Date Time Temp Pulse Resp B/P Pulse Ox O2 Delivery O2 Flow Rate FiO2 12/30/16 08:00 97.0 78 16 118/79 99 12/30/16 04:00 96.6 88 17 112/76 98 12/30/16 00:00 96.6 86 17 132/79 99 12/29/16 20:32 96 12/29/16 20:29 98 12/29/16 20:00 96.7 94 18 118/81 100 12/29/16 16:00 96.5 84 18 140/93 99 12/29/16 14:48 97 12/29/16 13:39 97.6 88 20 133/80 97 12/29/16 12:00 83 12/29/16 12:00 97.4 83 18 116/72 99 (Sharron Lebron) -: 12/30/16 0711 12/30/16 0711 Imaging Last 72 hours Impressions Abdomen Ultrasound 12/28/16 0000 Signed Impressions: Service Date/Time: Wednesday, December 28, 2016 18:52 - CONCLUSION: Pronounced gallbladder wall thickening without definite stones. Ascites. End stage kidneys Baudilio Head MD (Sharron Lebron) Physical Exam General Appearance: Well Developed, No Acute Distress, Pale, Malnourished Appearance Remarks restless (Sharron Lebron) Throat Throat Exam: Oral Mucosa [place] & Moist (Sharron Lebron) Pulmonary Resp Exam: Clear Bilaterally, Breath Sounds Equal, No Distress (Sharron Lebron) Cardiology CV Exam: Regular, Normal Sinus Rhythm (Sharron Lebron) Gastrointestinal/Abdomen GI Exam: Soft, Non-Tender, Bowel Sounds Present (Sharron Lebron) Musculoskeletal MS Exam: Joints Intact, Normal Tone (Sharron Lebron) Integumentary Skin Exam: Warm, Dry (Sharron Lebron) Extremeties Extremities Exam: Pedal Pulses Palpable, Trace Edema (Sharron Lebron) Neurologic Neuro Exam: Oriented, Speech Clear, Moving All Extremities (Sharron Lebron) Assessment/Plan Problem List: (1) ESRD (end stage renal disease) on dialysis Plan: M-W- dialysis, he is due today no electrolyte concerns check phosphorus, restart binders if needed has fistula for dialysis epogen and 2 units ordered for today no IVF required (2) GI bleed Plan: GI following, appreciate recommendations severely anemic, to be transfused today (3) Hypertension, benign Plan: continue to monitor (4) Cirrhosis Plan: gi following ETOH cessation advised (Sharron Lebron) Plan patient was seen and examined. Poor prognosis. Continues to have bleeding. Transfusion today, dialysis today. (Rubén Browne MD) Problem Qualifiers (1) GI bleed: Qualified Code: K92.2 - Gastrointestinal hemorrhage, unspecified gastrointestinal hemorrhage type Sharron Lebron Dec 30, 2016 11:50 Rubén Browne MD Dec 30, 2016 16:00
--- NOTE | 2016-12-30 13:03 | HHI.GIFU ---
Subjective Remarks Patient is resting in bed, complaints of diffused mild abdomen pain, he attributes to fluid over load, suppose to have HD today. He is also with complaints of bloody loose stools, according to nurse, this was dark blood with purple tinged, hgb dropped to 5.6, he has received a total of 8 units of blood. Objective Vitals I&O Vital Signs Date Time Temp Pulse Resp B/P Pulse Ox O2 Delivery O2 Flow Rate FiO2 12/30/16 12:24 97.3 80 18 112/76 12/30/16 12:00 97.3 80 18 112/76 94 12/30/16 08:00 97.0 78 16 118/79 99 12/30/16 04:00 96.6 88 17 112/76 98 12/30/16 00:00 96.6 86 17 132/79 99 12/29/16 20:32 96 12/29/16 20:29 98 12/29/16 20:00 96.7 94 18 118/81 100 12/29/16 16:00 96.5 84 18 140/93 99 12/29/16 14:48 97 12/29/16 13:39 97.6 88 20 133/80 97 I/O 12/29/16 12/29/16 12/29/16 12/30/16 12/30/16 12/30/16 07:00 15:00 23:00 07:00 15:00 23:00 Intake Total 231 ml 440 ml 720 ml 240 ml 240 ml Output Total 0 ml Balance 231 ml 440 ml 720 ml 240 ml 240 ml Intake Oral 360 ml 720 ml 240 ml 240 ml IV Total 231 ml 80 ml Output Urine Total 0 ml # Voids 0 2 # Bowel Movements 1 2 1 Laboratory Laboratory Tests Test 12/30/16 12/30/16 07:11 10:40 White Blood Count 4.2 Red Blood Count 1.80 Hemoglobin 5.6 Hematocrit 16.8 Mean Corpuscular Volume 93.1 Mean Corpuscular Hemoglobin 31.0 Mean Corpuscular Hemoglobin 33.2 Concent Red Cell Distribution Width 17.0 Platelet Count 163 Mean Platelet Volume 8.1 Neutrophils (%) (Auto) 74.8 Lymphocytes (%) (Auto) 14.0 Monocytes (%) (Auto) 8.8 Eosinophils (%) (Auto) 2.0 Basophils (%) (Auto) 0.4 Neutrophils # (Auto) 3.2 Lymphocytes # (Auto) 0.6 Monocytes # (Auto) 0.4 Eosinophils # (Auto) 0.1 Basophils # (Auto) 0.0 CBC Comment DIFF FINAL Differential Comment Sodium Level 140 Potassium Level 4.6 Chloride Level 103 Carbon Dioxide Level 26.7 Anion Gap 10 Blood Urea Nitrogen 60 Creatinine 7.08 Estimat Glomerular Filtration 8 Rate Random Glucose 96 Calcium Level 7.5 Prothrombin Time 10.9 Prothromb Time International 1.0 Ratio Fibrinogen 275 Blood Type O POSITIVE Antibody Screen NEGATIVE Crossmatch Leukocyte-Reduced Red Blood Cells Blood Bank Comment Imaging Last Impressions Abdomen Ultrasound 12/28/16 0000 Signed Impressions: Service Date/Time: Wednesday, December 28, 2016 18:52 - CONCLUSION: Pronounced gallbladder wall thickening without definite stones. Ascites. End stage kidneys Baudilio Head MD Chest X-Ray 12/27/16 0000 Signed Impressions: Service Date/Time: Tuesday, December 27, 2016 21:36 - CONCLUSION: No acute disease. Warren Max MD Physical Exam HEENT: Normocephalic; atraumatic; no jaundice. CHEST: CTA CARDIAC: RRR ABDOMEN: Soft, nondistended, nontender; no hepatosplenomegaly; bowel sounds are present in all four quadrants. EXTREMITIES: No clubbing, cyanosis, or edema. SKIN: Multiple ecchymotic areas OBGYN HOSPITALIST PHYSICIAN: No focal deficits; alert and oriented times three. Assessment and Plan Plan ASSESSMENT: - Recurrent GIB. Pt has had multiple hospitalizations with extensive workup with prior EGD, Enteroscopy, Colonoscopy, and GDA embolization for bleeding duodenal ulcer in the past. He last had an enteroscopy at this facility on (12/10/16)---> small ulceration/avm third portion of the duodenum, s/p 4 clips, no active bleeding, fresh blood in stomach, duodenum, washed, no further bleeding seen. Angiogram (12/10/16)----> 1. The patient has had prior GDA embolization. This prevents antegrade evaluation and access of the feeder vessels to the third portion of the duodenum. 2. I did attempt to identify collateral vessels through the pancreatic or duodenal arcade off of the SMA but none were identified. No findings of active hemorrhage. Pt has not stayed out of the hospital long enough to have capsule endoscopy. During last hospitalization, he was transferred to tertiary for double balloon enteroscopy at [facility] for recurrent bleeding. We do not have the records for this, but the patient reports that he was hospitalized from 12/12- 12/21 and that he had EGD/Enteroscopy/Colonoscopy and reports that he was found to have bleeding on the wall of his colon. He reports that he was discharged on 12/21 and has continued to have dark tarry stools since that time. He was sent to hospital for severe anemia noted at outpatient HD. HH of 4.5/13.0 on admission. S/P 5 units PRBC. S/P EGD with cauterization of AVMs (12/28/16)----> Hiatal hernia, Gastritis, Duodenitis, Jejunal AVMs- S/P cauterization. No further bleeding. HH 7.6/22.0. Tolerating clears, would like this advanced. - Anemia, acute on chronic. S/P 5 units PRBC. HH 7.6/22.0. - ESRD on HD M/W/F - HTN, COPD per primary 12/30/16- Patient had bloody loose stools, according to nurse, this was dark blood with purple tinged, hgb dropped to 5.6, he has received a total of 8 units of blood. We still don't have records, case was discussed with nurse who will try to obtain. Case was discussed with Dr. Giles who recommended a colonoscopy PLAN: - clear liquids - Colonoscopy in am - Obtain consents - NPO Mn - Protonix drip - Monitor H&H - Transfuse as necessary - Obtain records from [facility]- EGD, double balloon enteroscopy , colonoscopy. - Capsule endoscopy as outpatient SHARLENE - Avoid anticoagulation - Supportive care - Further recommendations to follow based on results of above - Pt seen and examined by Dr. Corey and myself and this note is written on his behalf. Irma Jacobsen Dec 30, 2016 13:03
[2016-12-30] MEDS ORDERED: PEG (High)/E-LYTE SOLN 4000 ML BTL PO ONE (16:00)
[2016-12-30] MEDS ORDERED: SODIUM CHLOR 0.9% 1000 ML INJ 1,000 ML IV PRN ×3 (16:32)
[2016-12-30] MEDS ORDERED: MANNITOL 12.5 GM/50 ML VIAL IV PRN (16:45)
[2016-12-30] MEDS ORDERED: cloNIDine HCL 0.1 MG TAB PO PRN (16:45)
[2016-12-30] MEDS ORDERED: GENTAMICIN SULFATE (DIALYSIS USE ONLY) 20 MG/2 ML VIAL IV PRN (16:45)
[2016-12-30] MEDS ORDERED: diphenhydrAMINE HCL 25 MG CAP PO PRN (16:45)
[2016-12-30] MEDS ORDERED: HEPARIN SODIUM - IV 10,000 UNITS/10 ML VIAL PRN (16:45)
[2016-12-30] MEDS ORDERED: ACETAMINOPHEN 325 MG TAB PO PRN (16:45)
[2016-12-30] MEDS ORDERED: ONDANSETRON HCL 4 MG/2 ML VIAL IV PRN (16:45)
[2016-12-30] MEDS ORDERED: SODIUM CHLORIDE 0.9% FLUSH 5 ML FLUSH IVF PRN (16:45)
[2016-12-30] MEDS ORDERED: HEPARIN SODIUM - IV 10,000 UNITS/10 ML VIAL IVF PRN (16:45)
[2016-12-30] MEDS ORDERED: NITROGLYCERIN 0.4 MG SL 25 TABS/BTL SL PRN (16:45)
[2016-12-30] MEDS: EPOETIN ALFA 10,000 UNITS/ML VIAL IV PRN (17:10)
[2016-12-30] MEDS: GELATIN 12 MM/7 MM FOAM TOP PRN (17:10)
[2016-12-30 22:19] LABS: REVIEW FLAG FINAL
[2016-12-30 22:23] LABS: HEMATOCRIT 16.7 % (39.0-51.0)
--- NOTE | 2016-12-30 22:51 | HHI.PR ---
Subjective Remarks patient seen this morning around 11 AM. Denies any chest pain or shortness of breath. Continued black bowel movements. Objective Vital Signs Date Time Temp Pulse Resp B/P Pulse Ox O2 Delivery O2 Flow Rate FiO2 12/30/16 20:00 98.1 124 18 102/72 94 12/30/16 16:00 96.5 84 16 114/74 95 12/30/16 14:57 96.5 77 16 114/74 100 12/30/16 12:45 96.5 80 18 104/66 100 12/30/16 12:24 97.3 80 18 112/76 12/30/16 12:00 97.3 80 18 112/76 94 12/30/16 08:36 89 12/30/16 08:00 97.0 78 16 118/79 99 12/30/16 04:00 96.6 88 17 112/76 98 12/30/16 00:00 96.6 86 17 132/79 99 I/O 12/29/16 12/29/16 12/29/16 12/30/16 12/30/16 12/30/16 07:00 15:00 23:00 07:00 15:00 23:00 Intake Total 231 ml 440 ml 720 ml 240 ml 1062 ml 600 ml Output Total 0 ml 3000 ml Balance 231 ml 440 ml 720 ml 240 ml 1062 ml -2400 ml Intake Oral 360 ml 720 ml 240 ml 960 ml IV Total 231 ml 80 ml 102 ml Packed Cells 600 ml Output Urine Total 0 ml Hemodialysis 3000 ml # Voids 0 2 0 # Bowel Movements 1 2 2 Result Diagram: 12/30/16 2156 12/30/16 0711 Objective Remarks GENERAL: sitting up in bed. Alert and oriented 3. Appears in distress. Walking quickly to bathroom. SKIN: Warm and dry. HEAD: Normocephalic. EYES: No scleral icterus. No injection or drainage. NECK: Supple, trachea midline. No JVD. CARDIOVASCULAR: Regular rate and rhythm without murmurs, gallops, or rubs. RESPIRATORY: Breath sounds equal bilaterally. No accessory muscle use. GASTROINTESTINAL: Abdomen soft, non-tender, nondistended. MUSCULOSKELETAL: No cyanosis, or edema. BACK: Nontender without obvious deformity. No CVA tenderness. A/P Assessment and Plan 61-year-old man with //History of recurrent GI bleed (Hx of duodenal ulcers/esophagitis/Gastritis //History of liver cirrhosis and ascites -GI Dr. Giles consulted. s/p EGD with cautery: Gastritis, Duodenitis , 2 AVM cauterized. Currently on IV Protonix drip, will switch to by mouth 40 mg twice a day -s/p Transfusion total of 7u PRBC since admission -Monitor H&H and transfuse for hemoglobin less than 7 -3/6. Transfuse 2 units this morning for hemoglobin of 5.8. Still 5.8 this afternoon. Transfuse another 2 units. Restart IV pantoprazole twice a day. Plan for EGD/colonoscopy tomorrow. Watch for signs of fluid overload //History of alcohol abuse -Continues Awake and alert //COPD-no exacerbation -Oxygen PRN keep sat >92% -DuoNeb every 4 hours when necessary -Continue Incentive spirometry while awake //ESRD on HD --HD per renal. Patient has left AV fistula. Received hemodialysis 3/3 -Continue Renvela //Hypertension: BP soft, continue to hold Lopressor twice a day and Lasix //Prophylaxis: -Continue to Hold chemical DVT prophylaxis at this time due to anemia requiring transfusion, GI bleed. Lower extremity SCDs -Protonix IV twice a day Discharge Planning still requiring blood transfusions. can discharge home with home health when hemoglobin is stable, and cleared by GI. Pacheco Salgado MD Dec 30, 2016 22:51
[2016-12-31] VITALS (14 sets, daily range): BP systolic 81–142; BP diastolic 35–95; PULSE 76–91; RESP 16–18; TEMP 96.7–97.7; O2SAT 96–100
[2016-12-31] MEDS: PANTOPRAZOLE SODIUM 40 MG VIAL IV PUSH SCH ×3 (00:28→21:03)
[2016-12-31] MEDS: INSULIN NovoLIN REGULAR SUPPLEMENTAL SCALE SQ SCH ×3 (03:30→15:30)
[2016-12-31] MEDS: CHLORHEXIDINE GLUCONATE 2 % 1 PACK (2 CLOTHS) TOP SCH (04:00)
[2016-12-31] MEDS: SEVELAMER CARBONATE 800 MG TAB PO SCH ×3 (08:00→15:59)
[2016-12-31] MEDS: cefTRIAXone INJ 1,000 MG in SODIUM CHLORIDE 0.9% INJ 100 ML IV SCH (10:06)
[2016-12-31] MEDS: TRIAMCINOLONE ACETONIDE 0.1% CREAM 15 GM TOPICAL SCH ×2 (10:06→21:09)
[2016-12-31] MEDS: SODIUM CHLORIDE 0.9% FLUSH 5 ML FLUSH IV FLUSH SCH ×2 (10:06→21:04)
--- NOTE | 2016-12-31 11:28 | HHI.GIFU ---
Subjective Remarks Pt resting in bed. Has had ongoing rectal bleeding- 4 episodes overnight and 3 so far today. Only was able to get 1/2 Golytely down and then started vomiting so he quit. Lower abdominal cramping. Objective Vitals I&O Vital Signs Date Time Temp Pulse Resp B/P Pulse Ox O2 Delivery O2 Flow Rate FiO2 12/31/16 08:00 97.7 77 18 117/82 98 12/31/16 04:55 79 18 105/77 96 12/31/16 04:25 97.2 76 17 108/69 98 12/31/16 04:00 97.6 84 18 116/35 97 12/31/16 00:45 97.1 83 18 115/60 98 12/31/16 00:29 97.4 88 18 81/57 99 12/31/16 00:29 97.4 88 18 81/57 98 12/31/16 00:17 98 12/30/16 21:50 95 12/30/16 20:00 98.1 124 18 102/72 94 12/30/16 16:00 96.5 84 16 114/74 95 12/30/16 14:57 96.5 77 16 114/74 100 12/30/16 12:45 96.5 80 18 104/66 100 12/30/16 12:24 97.3 80 18 112/76 12/30/16 12:00 97.3 80 18 112/76 94 I/O 12/30/16 12/30/16 12/30/16 12/31/16 12/31/16 12/31/16 06:59 14:59 22:59 06:59 14:59 22:59 Intake Total 240 ml 1062 ml 840 ml Output Total 3000 ml Balance 240 ml 1062 ml -2160 ml Intake Oral 240 ml 960 ml 240 ml IV Total 102 ml Packed Cells 600 ml Hemodialysis 3000 ml # Voids 2 0 # Bowel Movements 2 2 5 Laboratory Laboratory Tests Test 12/30/16 12/30/16 21:56 22:51 Hemoglobin 5.8 Hematocrit 16.7 Blood Type O POSITIVE Crossmatch Leukocyte-Reduced Red Blood Cells Blood Bank Comment Imaging Last Impressions Abdomen Ultrasound 12/28/16 0000 Signed Impressions: Service Date/Time: Wednesday, December 28, 2016 18:52 - CONCLUSION: Pronounced gallbladder wall thickening without definite stones. Ascites. End stage kidneys Baudilio Head MD Chest X-Ray 12/27/16 0000 Signed Impressions: Service Date/Time: Tuesday, December 27, 2016 21:36 - CONCLUSION: No acute disease. Warren Max MD Physical Exam HEENT: Normocephalic; atraumatic; no jaundice. CHEST: CTA CARDIAC: RRR ABDOMEN: Soft, nondistended, nontender; no hepatosplenomegaly; bowel sounds are present in all four quadrants. EXTREMITIES: No clubbing, cyanosis, or edema. SKIN: Multiple ecchymotic areas FISHERIES MANAGEMENT BIOLOGIST: No focal deficits; alert and oriented times three. Assessment and Plan Plan ASSESSMENT: - Recurrent GIB. Pt has had multiple hospitalizations with extensive workup with prior EGD, Enteroscopy, Colonoscopy, and GDA embolization for bleeding duodenal ulcer in the past. He last had an enteroscopy at this facility on (12/10/16)---> small ulceration/avm third portion of the duodenum, s/p 4 clips, no active bleeding, fresh blood in stomach, duodenum, washed, no further bleeding seen. Angiogram (12/10/16)----> 1. The patient has had prior GDA embolization. This prevents antegrade evaluation and access of the feeder vessels to the third portion of the duodenum. 2. I did attempt to identify collateral vessels through the pancreatic or duodenal arcade off of the SMA but none were identified. No findings of active hemorrhage. Pt has not stayed out of the hospital long enough to have capsule endoscopy. During last hospitalization, he was transferred to tertiary for double balloon enteroscopy at [facility] for recurrent bleeding. We do not have the records for this, but the patient reports that he was hospitalized from 12/12- 12/21 and that he had EGD/Enteroscopy/Colonoscopy and reports that he was found to have bleeding on the wall of his colon. He reports that he was discharged on 12/21 and has continued to have dark tarry stools since that time. He was sent to hospital for severe anemia noted at outpatient HD. HH of 4.5/13.0 on admission. S/P 5 units PRBC. S/P EGD with cauterization of AVMs (12/28/16)----> Hiatal hernia, Gastritis, Duodenitis, Jejunal AVMs- S/P cauterization. Pt has had ongoing rectal bleeding- 4 episodes overnight , 3 so far today. Still no records from [facility], d/w nurse and she is resending release and request. Plan for enteroscopy and colonoscopy today. NPO. HH 5.8/16.7. S/P 9 units. - Anemia, acute on chronic. S/P 9 units PRBC. HH 5.8/16.7. - ESRD on HD M/W/F - HTN, COPD per primary PLAN: - Plan for enteroscopy and colonoscopy today - Obtain consents - NPO - Agree with transfusion - Monitor hh - Transfuse as necessary - Protonix drip - Monitor H&H - Transfuse as necessary - Obtain records from [facility]- EGD, double balloon enteroscopy , colonoscopy. Nurse resending request/relase - Capsule endoscopy as outpatient SHARLENE - Avoid anticoagulation - Supportive care - Further recommendations to follow based on results of above - Pt seen and examined by Dr. Corey and myself and this note is written on his behalf. Cassia Peterson Dec 31, 2016 11:28
--- NOTE | 2016-12-31 11:56 | HHI.NPPN ---
Subjective General Problems: Anemia, Edema Renal Failure: Chronic Interval History Severe anemia persists. Due to additional blood transfusions. (Sharron Lebron) Review of Systems Gastrointestinal Gastrointestinal: Blood/Tarry Stools (Sharron Lebron) Objective Data Data 12/30/16 12/31/16 19:00 07:00 Intake Total 1662 ml 240 ml Output Total 3000 ml Balance 1662 ml -2760 ml Intake Oral 960 ml 240 ml IV Total 102 ml Packed Cells 600 ml Hemodialysis 3000 ml # Voids 0 # Bowel Movements 2 5 Vital Signs Date Time Temp Pulse Resp B/P Pulse Ox O2 Delivery O2 Flow Rate FiO2 12/31/16 11:35 97.7 77 18 117/82 98 12/31/16 08:29 98 21 12/31/16 08:00 97.7 77 18 117/82 98 12/31/16 04:55 79 18 105/77 96 12/31/16 04:25 97.2 76 17 108/69 98 12/31/16 04:00 97.6 84 18 116/35 97 12/31/16 00:45 97.1 83 18 115/60 98 12/31/16 00:29 97.4 88 18 81/57 99 12/31/16 00:29 97.4 88 18 81/57 98 12/31/16 00:17 98 12/30/16 21:50 95 12/30/16 20:00 98.1 124 18 102/72 94 12/30/16 16:00 96.5 84 16 114/74 95 12/30/16 14:57 96.5 77 16 114/74 100 12/30/16 12:45 96.5 80 18 104/66 100 12/30/16 12:24 97.3 80 18 112/76 12/30/16 12:00 97.3 80 18 112/76 94 (Sharron Lebron) -: 12/30/16 2156 12/30/16 0711 Physical Exam General Appearance: Well Developed, No Acute Distress, Pale, Malnourished Appearance Remarks restless (Sharron Lebron) Throat Throat Exam: Oral Mucosa Camino & Moist (Sharron Lebron) Pulmonary Resp Exam: Clear Bilaterally, Breath Sounds Equal, No Distress (Sharron Lebron) Cardiology CV Exam: Regular, Normal Sinus Rhythm (Sharron Lebron) Gastrointestinal/Abdomen GI Exam: Soft, Non-Tender, Bowel Sounds Present (Sharron Lebron) Musculoskeletal MS Exam: Joints Intact, Normal Tone (Sharron Lebron) Integumentary Skin Exam: Warm, Dry (Sharron Lebron) Extremeties Extremities Exam: Pedal Pulses Palpable, Trace Edema (Sharron Lebron) Neurologic Neuro Exam: Oriented, Speech Clear, Moving All Extremities (Sharron Lebron) Assessment/Plan Problem List: (1) ESRD (end stage renal disease) on dialysis Plan: dialysis, he had 3L UF yesterday no electrolyte concerns check phosphorus in am has a functioning fistula for dialysis no IVF required ; avoid gadolinium in ESRD pts (2) Anemia Plan: 2 units ordered for today, 9 will be transfused total on epogen evaluation of GI bleeding in process (3) GI bleed Plan: GI following, GI prep started, will need EGD/colonoscopy today severely anemic, to be transfused today (4) Hypertension, benign Plan: continue to monitor (5) Cirrhosis Plan: gi following ETOH cessation advised (Sharron Lebron) Plan patient was seen and examined. We will continue dialysis MWF. GI following for continued GI bleeding. EGD report reviewed. Hemoglobin is slightly better post transfusion. (Rubén Browne MD) Problem Qualifiers (1) GI bleed: Qualified Code: K92.2 - Gastrointestinal hemorrhage, unspecified gastrointestinal hemorrhage type Sharron Lebron Dec 31, 2016 11:56 Rubén Browne MD Dec 31, 2016 16:35
[2016-12-31] MEDS ORDERED: GLUCAGON 1 MG/ML VIAL ONE (12:00)
[2016-12-31] MEDS ORDERED: PHENYLEPH/NS 1000 MCG/10 ML SYR IV ONE (12:00)
[2016-12-31 12:54] LABS: AUTOMATED NEUTROPHIL # 2.9 TH/MM3 (1.8-7.7); BASOPHIL % 0.6 % (0.0-2.0); EOSINOPHIL # 0.1 TH/MM3 (0-0.4); EOSINOPHIL % 2.3 % (0.0-4.0); HEMO FLAGS DIFF FINAL; LYMPH % 18.4 % (9.0-44.0); LYMPHOCYTE # 0.8 TH/MM3 (1.0-4.8); MEAN CELL VOLUME 89.2 FL (80.0-100.0); MEAN CORPUSCULAR HEMOGLOBIN 30.4 PG (27.0-34.0); MEAN CORPUSCULAR HGB CONC 34.1 % (32.0-36.0); NEUT % 69.7 % (16.0-70.0); PLATELET COUNT 139 TH/MM3 (150-450); RED BLOOD COUNT 2.46 MIL/MM3 (4.50-5.90); RED CELL DISTRIBUTION WIDTH 16.8 % (11.6-17.2); WHITE BLOOD COUNT 4.1 TH/MM3 (4.0-11.0)
[2016-12-31 13:10] LABS: BICARBONATE 30.9 MEQ/L (21.0-32.0); POTASSIUM 4.9 MEQ/L (3.5-5.1)
[2016-12-31 13:23] LABS: BICARBONATE 31.9 MEQ/L (21.0-32.0); MAGNESIUM 1.6 MG/DL (1.5-2.5); POTASSIUM 4.7 MEQ/L (3.5-5.1)
[2016-12-31] MEDS ORDERED: PROPOFOL 200 MG/20 ML AMP IV ONE (13:43)
--- NOTE | 2016-12-31 14:34 | PD.PROCEDR ---
GI Procedure REFERRING PHYSICIAN Dr. Salgado PROCEDURE PERFORMED Enteroscopy with APC and colonoscopy INDICATION FOR PROCEDURE GI bleed PROCEDURE: The procedure, risks and benefits were discussed with Mr. Sage and informed consent was obtained. Anesthesia sedated him with Diprivan. He was placed in the left lateral decubitus position. Enteroscopy: The Pentax videoscope was introduced through the oropharynx and advanced to the proximal to mid jejunum under direct visualization. Retroflexion was performed in the stomach. FINDINGS: The esophagus this was normal The stomach there was a small hiatal hernia otherwise unremarkable The duodenum there was a nodular mucosa in the duodenal bulb and sweep with a pool of fresh blood this was cleared and washed no source of bleeding was seen but the nodularity did appear to be somewhat vascular and as such although the nodules seen in the duodenal sweep and bulb were cauterized using APC no ulcerations or erosions were seen The jejunum the areas of cautery from the other day of the AVMs seem to be healing nicely with no visible vessel otherwise the jejunal mucosa was unremarkable Colonoscopy: The Pentax videoscope was introduced through the rectum and advanced to cecum where the ileocecal valve and appendiceal orifice were identified. Retroflexion was performed in the rectum. Colonic prep was poor FINDINGS: As the scope was slowly withdrawn colonic mucosa was carefully inspected the patient was noted to have dark maroon and black blood throughout the colon and the prep was very poor we could not identify any lesions but there was no pooling of fresh blood and the terminal ileum could not be intubated but this is most likely bleeding from an upper GI source ESTIMATED BLOOD LOSS: No active bleeding seen throughout the procedure SPECIMENS REMOVED: None COMPLICATIONS: None IMPRESSION: Hiatal hernia Nodular duodenitis Poor colonic prep PLAN: Continue with current supportive care Monitor labs I would transfuse to over 10 or 11 hemoglobin in hopes that we can get him to be discharged for outpatient capsule endoscopy Jean-Pierre Giles MD Dec 31, 2016 14:33
[2016-12-31] MEDS ORDERED: ACETAMINOPHEN/HYDROcodone 325 MG/5 MG TAB PO ONE (15:45)
[2016-12-31] MEDS: ONDANSETRON ODT 4 MG TAB PO PRN (17:25)
[2016-12-31] MEDS: ACETAMINOPHEN 325 MG TAB PO PRN (21:03)
[2016-12-31] MEDS ORDERED: SODIUM CHLOR 0.9% 250 ML INJ 250 ML IV ONE (23:15)
[2017-01-01] VITALS (13 sets, daily range): BP systolic 104–151; BP diastolic 65–98; PULSE 73–98; RESP 16–20; TEMP 95.9–98.2; O2SAT 97–100
--- NOTE | 2017-01-01 00:06 | HHI.PR ---
Subjective Remarks late entry. Date of service 12/31/16. Patient seen the afternoon of 12/31/16 Patient says he is feeling better than yesterday.he denies any chest pain or shortness of breath. Continued dark bowel movements reported by nursingprior to GI evaluation. Objective Vital Signs Date Time Temp Pulse Resp B/P Pulse Ox O2 Delivery O2 Flow Rate FiO2 12/31/16 20:25 98 Nasal Cannula 1.00 12/31/16 20:00 96.7 79 18 142/95 100 12/31/16 16:30 77 12/31/16 16:00 96.7 76 16 127/86 100 12/31/16 14:46 85 16 112/76 100 12/31/16 14:41 86 18 118/77 100 12/31/16 14:36 96.9 81 16 97/66 100 12/31/16 11:35 97.7 77 18 117/82 98 12/31/16 08:29 98 21 12/31/16 08:00 97.7 77 18 117/82 98 12/31/16 04:55 79 18 105/77 96 12/31/16 04:25 97.2 76 17 108/69 98 12/31/16 04:00 97.6 84 18 116/35 97 12/31/16 00:45 97.1 83 18 115/60 98 12/31/16 00:29 97.4 88 18 81/57 99 12/31/16 00:29 97.4 88 18 81/57 98 12/31/16 00:17 98 I/O 12/31/16 12/31/16 12/31/16 01/01/17 01/01/17 01/01/17 07:00 15:00 23:00 07:00 15:00 23:00 Intake Total 100 ml 650 ml Balance 100 ml 650 ml Intake Oral 650 ml IV Total 100 ml # Voids 0 # Bowel Movements 5 3 Result Diagram: 12/31/16201512/31/16 1244 Objective Remarks GENERAL: sitting up in bed. Alert and oriented 3. Appears comfortable. SKIN: Warm and dry. HEAD: Normocephalic. EYES: No scleral icterus. No injection or drainage. NECK: Supple, trachea midline. No JVD. CARDIOVASCULAR: Regular rate and rhythm without murmurs, gallops, or rubs. RESPIRATORY: Breath sounds equal bilaterally. No accessory muscle use. GASTROINTESTINAL: Abdomen soft, non-tender, nondistended. MUSCULOSKELETAL: No cyanosis, or edema. BACK: Nontender without obvious deformity. No CVA tenderness. A/P Assessment and Plan 61-year-old man with //History of recurrent GI bleed (Hx of duodenal ulcers/esophagitis/Gastritis //History of liver cirrhosis and ascites -GI Dr. Giles consulted. s/p EGD with cautery: Gastritis, Duodenitis , 2 AVM cauterized. Currently on IV Protonix drip, will switch to by mouth 40 mg twice a day -s/p Transfusion total of 7u PRBC since admission -Monitor H&H and transfuse for hemoglobin less than 7 -12/30. Transfuse 2 units this morning for hemoglobin of 5.8. Still 5.8 this afternoon. Transfuse another 2 units. Restart IV pantoprazole twice a day. Plan for EGD/colonoscopy tomorrow. Watch for signs of fluid overload -12/31. Hemoglobin improved. GI performed colonoscopy. Appreciate assistance. Continue to monitor. //History of alcohol abuse -Continues Awake and alert //COPD-no exacerbation -Oxygen PRN keep sat >92% -DuoNeb every 4 hours when necessary -Continue Incentive spirometry while awake //ESRD on HD --HD per renal. Patient has left AV fistula. Received hemodialysis 12/27 -Continue Renvela //Hypertension: BP soft, continue to hold Lopressor twice a day and Lasix //Prophylaxis: -Continue to Hold chemical DVT prophylaxis at this time due to anemia requiring transfusion, GI bleed. Lower extremity SCDs -Protonix IV twice a day Discharge Planning still requiring blood transfusions. can discharge home with home health when hemoglobin is stable, and cleared by GI. Pacheco Salgado MD Jan 01, 2017 00:06
[2017-01-01] MEDS ORDERED: ACETAMINOPHEN/HYDROcodone 325 MG/5 MG TAB PO ONE (03:30)
[2017-01-01] MEDS: CHLORHEXIDINE GLUCONATE 2 % 1 PACK (2 CLOTHS) TOP SCH (04:00)
[2017-01-01] MEDS: TRIAMCINOLONE ACETONIDE 0.1% CREAM 15 GM TOPICAL SCH ×2 (07:43→22:50)
[2017-01-01] MEDS: SODIUM CHLORIDE 0.9% FLUSH 5 ML FLUSH IV FLUSH SCH ×2 (07:43→22:50)
[2017-01-01] MEDS: SEVELAMER CARBONATE 800 MG TAB PO SCH ×3 (07:43→18:25)
[2017-01-01] MEDS: cefTRIAXone INJ 1,000 MG in SODIUM CHLORIDE 0.9% INJ 100 ML IV SCH (07:44)
--- NOTE | 2017-01-01 11:41 | HHI.NPPN ---
Subjective General Problems: Anemia, Edema Renal Failure: Chronic Interval History Seen during dialysis. To receive blood with treatment. (Sharron Lebron ) Review of Systems Gastrointestinal Gastrointestinal: Blood/Tarry Stools (Sharron Lebron) Objective Data Data 12/31/16 01/01/17 19:00 07:00 Intake Total 100 ml 1130 ml Balance 100 ml 1130 ml Intake Oral 1130 ml IV Total 100 ml # Voids 0 # Bowel Movements 2 2 Vital Signs Date Time Temp Pulse Resp B/P Pulse Ox O2 Delivery O2 Flow Rate FiO2 01/01/17 09:38 98 21 01/01/17 08:00 96.6 97 18 125/81 99 01/01/17 07:38 96.9 97 20 125/80 99 01/01/17 05:07 96.1 84 18 104/79 99 01/01/17 04:42 98.2 80 16 140/65 100 01/01/17 04:42 98.2 80 16 140/65 100 01/01/17 01:10 95.9 85 18 149/98 100 01/01/17 00:30 96.0 82 16 151/92 100 01/01/17 00:00 96.0 82 16 151/92 100 12/31/16 20:25 98 Nasal Cannula 1.00 12/31/16 20:18 91 12/31/16 20:00 96.7 79 18 142/95 100 12/31/16 16:30 77 12/31/16 16:00 96.7 76 16 127/86 100 12/31/16 14:46 85 16 112/76 100 12/31/16 14:41 86 18 118/77 100 12/31/16 14:36 96.9 81 16 97/66 100 (Sharron Lebron) -: 01/01/17 0027 12/31/16 1244 Physical Exam General Appearance: Well Developed, No Acute Distress, Comfortable, Pale, Malnourished (Sharron Lebron) Throat Throat Exam: Oral Mucosa Renick & Moist (Sharron Lebron) Pulmonary Resp Exam: Clear Bilaterally, Breath Sounds Equal, No Distress (Sharron Lebron) Cardiology CV Exam: Regular, Normal Sinus Rhythm (Sharron Lebron) Gastrointestinal/Abdomen GI Exam: Soft, Non-Tender, Bowel Sounds Present (Sharron Lebron) Musculoskeletal MS Exam: Joints Intact, Normal Tone (Sharron Lebron) Integumentary Skin Exam: Warm, Dry (Sharron Lebron) Extremeties Extremities Exam: Pedal Pulses Palpable, Trace Edema (Sharron Lebron) Neurologic Neuro Exam: Oriented, Speech Clear, Moving All Extremities (Sharron Lebron) Assessment/Plan Discussed Condition With: Patient Assessment Summary: Anemia of CKD Problem List: (1) ESRD (end stage renal disease) on dialysis Plan: seen during dialysis today on a 2K, 350 BFR, goal 3L continue -W- dialysis no electrolyte concerns phosphorus level is acceptable has a functioning fistula for dialysis no IVF required ; avoid gadolinium in ESRD pts high protein diet (2) Anemia Plan: 2 units ordered to be given with dialysis today, 13 will be transfused total on epogen he has GIB contributing to anemia goal Hb 10-11 (3) GI bleed Plan: GI following, EGD yesterday: fresh bleed but source not identified; dark maroon blood in colon will need capsule endoscopy outpatient severely anemic, continue blood transfusions (4) Hypertension, benign Plan: continue to monitor (5) Cirrhosis Plan: gi following ETOH cessation advised Plan p (Sharron Lebron) Plan patient was seen and examined. Continuing to have GI bleeding. GI following. Dialysis MWF. (Rubén Browne MD) Problem Qualifiers (1) GI bleed: Qualified Code: K92.2 - Gastrointestinal hemorrhage, unspecified gastrointestinal hemorrhage type Sharron Lebron Jan 01, 2017 11:41 Rubén Browne MD Jan 02, 2017 09:58
[2017-01-01] MEDS: EPOETIN ALFA 10,000 UNITS/ML VIAL IV PRN (13:00)
--- NOTE | 2017-01-01 14:25 | HHI.GIFU ---
Subjective Remarks Seen in dialysis. He reports that he has not had any further bleeding. Patient denies any abdominal pain Objective Vitals I&O Vital Signs Date Time Temp Pulse Resp B/P Pulse Ox O2 Delivery O2 Flow Rate FiO2 01/01/17 09:38 98 21 01/01/17 08:00 96.6 97 18 125/81 99 01/01/17 07:38 96.9 97 20 125/80 99 01/01/17 05:07 96.1 84 18 104/79 99 01/01/17 04:42 98.2 80 16 140/65 100 01/01/17 04:42 98.2 80 16 140/65 100 01/01/17 01:10 95.9 85 18 149/98 100 01/01/17 00:30 96.0 82 16 151/92 100 01/01/17 00:00 96.0 82 16 151/92 100 12/31/16 20:25 98 Nasal Cannula 1.00 12/31/16 20:18 91 12/31/16 20:00 96.7 79 18 142/95 100 12/31/16 16:30 77 12/31/16 16:00 96.7 76 16 127/86 100 12/31/16 14:46 85 16 112/76 100 12/31/16 14:41 86 18 118/77 100 12/31/16 14:36 96.9 81 16 97/66 100 I/O 12/31/16 12/31/16 12/31/16 01/01/17 01/01/17 01/01/17 07:00 15:00 23:00 07:00 15:00 23:00 Intake Total 100 ml 650 ml 480 ml Balance 100 ml 650 ml 480 ml Intake Oral 650 ml 480 ml IV Total 100 ml # Voids 0 0 # Bowel Movements 5 3 1 Laboratory Laboratory Tests Test 12/31/16 12/31/16 01/01/17 01/01/17 20:16 23:08 00:27 11:17 Hemoglobin 6.7 6.4 Blood Type O POSITIVE O POSITIVE Crossmatch Leukocyte-Reduced Leukocyte-Reduced Red Blood Red Blood Cells Cells Blood Bank Comment Imaging Last Impressions Abdomen Ultrasound 12/28/16 0000 Signed Impressions: Service Date/Time: Wednesday, December 28, 2016 18:52 - CONCLUSION: Pronounced gallbladder wall thickening without definite stones. Ascites. End stage kidneys Baudilio Head MD Chest X-Ray 12/27/16 0000 Signed Impressions: Service Date/Time: Tuesday, December 27, 2016 21:36 - CONCLUSION: No acute disease. Warren Max MD Physical Exam HEENT: Normocephalic; atraumatic; no jaundice. CHEST: CTA CARDIAC: RRR ABDOMEN: Soft, nondistended, nontender; no hepatosplenomegaly; bowel sounds are present in all four quadrants. EXTREMITIES: No clubbing, cyanosis, or edema. SKIN: Multiple ecchymotic areas FLOORING HELPER: No focal deficits; alert and oriented times three. Assessment and Plan Plan ASSESSMENT: - Recurrent GIB. Pt has had multiple hospitalizations with extensive workup with prior EGD, Enteroscopy, Colonoscopy, and GDA embolization for bleeding duodenal ulcer in the past. He last had an enteroscopy at this facility on (12/10/16)---> small ulceration/avm third portion of the duodenum, s/p 4 clips, no active bleeding, fresh blood in stomach, duodenum, washed, no further bleeding seen. Angiogram (12/10/16)----> 1. The patient has had prior GDA embolization. This prevents antegrade evaluation and access of the feeder vessels to the third portion of the duodenum. 2. I did attempt to identify collateral vessels through the pancreatic or duodenal arcade off of the SMA but none were identified. No findings of active hemorrhage. Pt has not stayed out of the hospital long enough to have capsule endoscopy. During last hospitalization, he was transferred to tertiary for double balloon enteroscopy at [facility] for recurrent bleeding. We do not have the records for this, but the patient reports that he was hospitalized from 12/12- 12/21 and that he had EGD/Enteroscopy/Colonoscopy and reports that he was found to have bleeding on the wall of his colon. He reports that he was discharged on 12/21 and has continued to have dark tarry stools since that time. He was sent to hospital for severe anemia noted at outpatient HD. HH of 4.5/13.0 on admission. S/P EGD with cauterization of AVMs (12/28/16)---- > Hiatal hernia, Gastritis, Duodenitis, Jejunal AVMs- S/P cauterization. Pt has had ongoing rectal bleeding- 4 episodes overnight, 3 so far today. Still no records from [facility], d/w nurse and she is resending release and request. S/P Rpt Enteroscopy and Colonoscopy ()---> Hiatal hernia, Nodular duodenitis, Poor colonic prep. Pt states he has not had any further bleeding. Hgb was 6.4 last night. Getting 2 unit of PRBC during HD today. Will recheck after transfusion. Will need capsule endoscopy SHARLENE once discharged. - Anemia, acute on chronic. S/P 13 units PRBC. Hgh 6.4 last night. Received 2 PRBC during HD today. Will check afterwards. - ESRD on HD M/W/F - HTN, COPD per primary PLAN: - MADELINE - Agree with transfusion - Monitor hh - Transfuse as necessary - Protonix 40mg IV BID - Monitor H&H - Avoid anticoagulation - Supportive care - Recommend transfusing to get Hgb over 10 or 11 in hopes that we can get him to be discharged for outpatient capsule endoscopy - Capsule endoscopy as outpatient SHARLENE- will call to arrange in office once we know he will be discharged. - Further recommendations to follow based on results of above - Pt seen and examined by Dr. Corey and myself and this note is written on his behalf. Cassia Peterson Jan 01, 2017 14:25
[2017-01-01] MEDS: PANTOPRAZOLE SODIUM 40 MG VIAL IV PUSH SCH ×2 (15:32→22:50)
[2017-01-01 21:01] LABS: AUTOMATED NEUTROPHIL # 2.6 TH/MM3 (1.8-7.7); BASOPHIL % 0.7 % (0.0-2.0); EOSINOPHIL # 0.1 TH/MM3 (0-0.4); EOSINOPHIL % 3.2 % (0.0-4.0); HEMATOCRIT 26.6 % (39.0-51.0); HEMO FLAGS DIFF FINAL; LYMPH % 9.7 % (9.0-44.0); LYMPHOCYTE # 0.3 TH/MM3 (1.0-4.8); MEAN CELL VOLUME 88.4 FL (80.0-100.0); MEAN CORPUSCULAR HEMOGLOBIN 31.8 PG (27.0-34.0); MEAN CORPUSCULAR HGB CONC 35.9 % (32.0-36.0); MONO % 11.4 % (0.0-8.0); PLATELET COUNT 133 TH/MM3 (150-450); RED BLOOD COUNT 3.01 MIL/MM3 (4.50-5.90); RED CELL DISTRIBUTION WIDTH 15.2 % (11.6-17.2); WHITE BLOOD COUNT 3.5 TH/MM3 (4.0-11.0)
--- NOTE | 2017-01-01 23:54 | HHI.PR ---
Subjective Remarks patient seen today in dialysis. Blood transfused during dialysis. Patient says he is feeling all right. Denies any chest pain or shortness of breath. Denies any abdominal pain. Objective Vital Signs Date Time Temp Pulse Resp B/P Pulse Ox O2 Delivery O2 Flow Rate FiO2 01/01/17 20:59 97 21 01/01/17 20:00 97.0 74 16 121/83 100 01/01/17 16:00 97.6 98 20 117/82 98 01/01/17 09:38 98 21 01/01/17 09:22 79 01/01/17 08:00 96.6 97 18 125/81 99 01/01/17 07:38 96.9 97 20 125/80 99 01/01/17 05:07 96.1 84 18 104/79 99 01/01/17 04:42 98.2 80 16 140/65 100 01/01/17 04:42 98.2 80 16 140/65 100 01/01/17 01:10 95.9 85 18 149/98 100 01/01/17 00:30 96.0 82 16 151/92 100 01/01/17 00:00 96.0 82 16 151/92 100 I/O 12/31/16 12/31/16 12/31/16 01/01/17 01/01/17 01/01/17 07:00 15:00 23:00 07:00 15:00 23:00 Intake Total 100 ml 650 ml 480 ml 960 ml Output Total 3500 ml Balance 100 ml 650 ml 480 ml -2540 ml Intake Oral 650 ml 480 ml 360 ml IV Total 100 ml Packed Cells 600 ml Hemodialysis 3500 ml # Voids 0 0 1 # Bowel Movements 5 3 1 Result Diagram: 01/01/17201212/31/16 1244 Objective Remarks GENERAL: sitting up in bed. Alert and oriented 3. Appears comfortable. exam unchanged. SKIN: Warm and dry. HEAD: Normocephalic. EYES: No scleral icterus. No injection or drainage. NECK: Supple, trachea midline. No JVD. CARDIOVASCULAR: Regular rate and rhythm without murmurs, gallops, or rubs. RESPIRATORY: Breath sounds equal bilaterally. No accessory muscle use. GASTROINTESTINAL: Abdomen soft, non-tender, nondistended. MUSCULOSKELETAL: No cyanosis, or edema. BACK: Nontender without obvious deformity. No CVA tenderness. A/P Assessment and Plan 61-year-old man with //History of recurrent GI bleed (Hx of duodenal ulcers/esophagitis/Gastritis //History of liver cirrhosis and ascites -GI Dr. Giles consulted. s/p EGD with cautery: Gastritis, Duodenitis , 2 AVM cauterized. Currently on IV Protonix drip, will switch to by mouth 40 mg twice a day -s/p Transfusion total of 7u PRBC since admission -Monitor H&H and transfuse for hemoglobin less than 7 -12/30. Transfuse 2 units this morning for hemoglobin of 5.8. Still 5.8 this afternoon. Transfuse another 2 units. Restart IV pantoprazole twice a day. Plan for EGD/colonoscopy tomorrow. Watch for signs of fluid overload -12/31. Hemoglobin improved. GI performed colonoscopy. Appreciate assistance. Continue to monitor. -01/01. Hemoglobin transfused again. Some dilutional leukopenia. Monitor. //History of alcohol abuse -Continues Awake and alert //COPD-no exacerbation -Oxygen PRN keep sat >92% -DuoNeb every 4 hours when necessary -Continue Incentive spirometry while awake //ESRD on HD --HD per renal. Patient has left AV fistula. Received hemodialysis 12/27 -Continue Renvela //Hypertension: BP soft, continue to hold Lopressor twice a day and Lasix //leukopenia. Dilutional. Continue to monitor. //Prophylaxis: -Continue to Hold chemical DVT prophylaxis at this time due to anemia requiring transfusion, GI bleed. Lower extremity SCDs -Protonix IV twice a day Discharge Planning still requiring blood transfusions. can discharge home with home health when hemoglobin is stable, and cleared by GI. Pacheco Salgado MD Jan 01, 2017 23:54
[2017-01-02] VITALS (8 sets, daily range): BP systolic 116–143; BP diastolic 79–89; PULSE 60–97; RESP 16–20; TEMP 96.7–97.9; O2SAT 96–100
[2017-01-02] MEDS: CHLORHEXIDINE GLUCONATE 2 % 1 PACK (2 CLOTHS) TOP SCH (03:20)
[2017-01-02 07:58] LABS: BASOPHIL % 0.5 % (0.0-2.0); EOSINOPHIL # 0.1 TH/MM3 (0-0.4); EOSINOPHIL % 3.5 % (0.0-4.0); HEMATOCRIT 22.1 % (39.0-51.0); HEMO FLAGS DIFF FINAL; LYMPH % 10.2 % (9.0-44.0); LYMPHOCYTE # 0.3 TH/MM3 (1.0-4.8); MEAN CELL VOLUME 89.3 FL (80.0-100.0); MEAN CORPUSCULAR HEMOGLOBIN 30.5 PG (27.0-34.0); MEAN CORPUSCULAR HGB CONC 34.1 % (32.0-36.0); NEUT % 70.8 % (16.0-70.0); PLATELET COUNT 110 TH/MM3 (150-450); RED BLOOD COUNT 2.47 MIL/MM3 (4.50-5.90); RED CELL DISTRIBUTION WIDTH 15.5 % (11.6-17.2); WHITE BLOOD COUNT 2.9 TH/MM3 (4.0-11.0)
[2017-01-02 08:47] LABS: BICARBONATE 32.7 MEQ/L (21.0-32.0); MAGNESIUM 1.5 MG/DL (1.5-2.5); POTASSIUM 4.7 MEQ/L (3.5-5.1)
[2017-01-02] MEDS: TRIAMCINOLONE ACETONIDE 0.1% CREAM 15 GM TOPICAL SCH ×2 (09:00→20:03)
--- NOTE | 2017-01-02 10:57 | HHI.PR ---
Subjective Remarks pt says he feels well. no cp or sob. no bms today. Objective Vital Signs Date Time Temp Pulse Resp B/P Pulse Ox O2 Delivery O2 Flow Rate FiO2 01/02/17 10:17 99 21 01/02/17 07:50 96.7 89 20 124/79 96 01/02/17 04:03 97.9 77 16 135/83 96 01/02/17 00:00 97.9 77 16 122/83 98 01/01/17 21:40 73 01/01/17 20:59 97 21 01/01/17 20:00 97.0 74 16 121/83 100 01/01/17 16:00 97.6 98 20 117/82 98 I/O 01/01/17 01/01/17 01/01/17 01/02/17 01/02/17 01/02/17 07:00 15:00 23:00 07:00 15:00 23:00 Intake Total 480 ml 960 ml 500 ml 600 ml Output Total 3500 ml Balance 480 ml -2540 ml 500 ml 600 ml Intake Oral 480 ml 360 ml 500 ml 600 ml Packed Cells 600 ml Hemodialysis 3500 ml # Voids 0 1 0 1 # Bowel Movements 1 0 1 Result Diagram: 01/02/17 0711 01/02/17 0711 Objective Remarks GENERAL: sitting up in bed. Alert and oriented 3. Appears comfortable. again exam unchnaged SKIN: Warm and dry. HEAD: Normocephalic. EYES: No scleral icterus. No injection or drainage. NECK: Supple, trachea midline. No JVD. CARDIOVASCULAR: Regular rate and rhythm without murmurs, gallops, or rubs. RESPIRATORY: Breath sounds equal bilaterally. No accessory muscle use. GASTROINTESTINAL: Abdomen soft, non-tender, nondistended. MUSCULOSKELETAL: No cyanosis, or edema. BACK: Nontender without obvious deformity. No CVA tenderness. A/P Assessment and Plan 61-year-old man with //History of recurrent GI bleed (Hx of duodenal ulcers/esophagitis/Gastritis //History of liver cirrhosis and ascites -GI Dr. Giles consulted. s/p EGD with cautery: Gastritis, Duodenitis , 2 AVM cauterized. Currently on IV Protonix drip, will switch to by mouth 40 mg twice a day -s/p Transfusion total of 7u PRBC since admission -Monitor H&H and transfuse for hemoglobin less than 7 -12/30. Transfuse 2 units this morning for hemoglobin of 5.8. Still 5.8 this afternoon. Transfuse another 2 units. Restart IV pantoprazole twice a day. Plan for EGD/colonoscopy tomorrow. Watch for signs of fluid overload -12/31. Hemoglobin improved. GI performed colonoscopy. Appreciate assistance. Continue to monitor. -01/01. Hemoglobin transfused again. Some dilutional leukopenia. Monitor. -01/02 drop 9s-->7.5. cont to monitor Q8h. //History of alcohol abuse -Continues Awake and alert //COPD-no exacerbation -Oxygen PRN keep sat >92% -DuoNeb every 4 hours when necessary -Continue Incentive spirometry while awake //ESRD on HD --HD per renal. Patient has left AV fistula. Received hemodialysis 12/27 -Continue Renvela //Hypertension: BP soft, continue to hold Lopressor twice a day and Lasix //leukopenia. continues Dilutional. Continue to monitor. //Prophylaxis: -Continue to Hold chemical DVT prophylaxis at this time due to anemia requiring transfusion, GI bleed. Lower extremity SCDs -Protonix IV twice a day Discharge Planning still requiring blood transfusions. can discharge home with home health when hemoglobin is stable, and cleared by GI. Pacheco Salgado MD Jan 02, 2017 10:57
[2017-01-02 11:06] LABS: HEMATOCRIT 21.9 % (39.0-51.0); REVIEW FLAG FINAL
[2017-01-02] MEDS: SEVELAMER CARBONATE 800 MG TAB PO SCH ×3 (11:19→17:00)
[2017-01-02] MEDS: PANTOPRAZOLE SODIUM 40 MG VIAL IV PUSH SCH (11:26)
[2017-01-02] MEDS: cefTRIAXone INJ 1,000 MG in SODIUM CHLORIDE 0.9% INJ 100 ML IV SCH (11:26)
[2017-01-02] MEDS: SODIUM CHLORIDE 0.9% FLUSH 5 ML FLUSH IV FLUSH SCH ×2 (11:34→20:04)
--- NOTE | 2017-01-02 11:52 | HHI.NPPN ---
Subjective General Problems: Anemia, Edema Renal Failure: Chronic Interval History Dialyzed yesterday. Persistently anemic. (Sharron Lebron) Review of Systems Gastrointestinal Gastrointestinal: Blood/Tarry Stools (Sharron Lebron) Objective Data Data 01/01/17 01/02/17 19:00 07:00 Intake Total 960 ml 1100 ml Output Total 3500 ml Balance -2540 ml 1100 ml Intake Oral 360 ml 1100 ml Packed Cells 600 ml Hemodialysis 3500 ml # Voids 1 1 # Bowel Movements 1 Vital Signs Date Time Temp Pulse Resp B/P Pulse Ox O2 Delivery O2 Flow Rate FiO2 01/02/17 10:17 99 21 01/02/17 07:50 96.7 89 20 124/79 96 01/02/17 04:03 97.9 77 16 135/83 96 01/02/17 00:00 97.9 77 16 122/83 98 01/01/17 21:40 73 01/01/17 20:59 97 21 01/01/17 20:00 97.0 74 16 121/83 100 01/01/17 16:00 97.6 98 20 117/82 98 (Sharron Lebron) -: 01/02/17 1031 01/02/17 0711 Physical Exam General Appearance: Well Developed, No Acute Distress, Comfortable, Pale, Malnourished (Sharron Lebron) Throat Throat Exam: Oral Mucosa [place] & Moist (Sharron Lebron) Pulmonary Resp Exam: Clear Bilaterally, Breath Sounds Equal, No Distress (Sharron Lebron) Cardiology CV Exam: Regular, Normal Sinus Rhythm (Sharron Lebron) Gastrointestinal/Abdomen GI Exam: Soft, Non-Tender, Bowel Sounds Present (Sharron Lebron) Musculoskeletal MS Exam: Joints Intact, Normal Tone (Sharron Lebron) Integumentary Skin Exam: Warm, Dry (Sharron Lebron) Extremeties Extremities Exam: Pedal Pulses Palpable, Trace Edema (Sharron Lebron) Neurologic Neuro Exam: Oriented, Speech Clear, Moving All Extremities (Sharron Lebron) Assessment/Plan Discussed Condition With: Patient Assessment Summary: Anemia of CKD Problem List: (1) ESRD (end stage renal disease) on dialysis Plan: 3L UF yesterday, continue -- dialysis no electrolyte concerns phosphorus level is acceptable has a functioning fistula for dialysis no IVF required ; avoid gadolinium in ESRD pts high protein diet (2) Anemia Plan: 13 PRBC have been transfused since admission on epogen he has GIB contributing to anemia goal Hb 10-11 (3) GI bleed Plan: GI following, to have bleeding scan and enteroscopy today, NPO now EGD since admission will need capsule endoscopy outpatient severely anemic, continue blood transfusions (4) Hypertension, benign Plan: continue to monitor (5) Cirrhosis Plan: gi following ETOH cessation advised (Sharron Lebron) Plan patient was seen and examined. Continues to have GI bleeding. Dialysis MWF. ( Rubén Browne MD) Problem Qualifiers (1) GI bleed: Qualified Code: K92.2 - Gastrointestinal hemorrhage, unspecified gastrointestinal hemorrhage type Sharron Lebron Jan 02, 2017 11:52 Rubén Browne MD Jan 03, 2017 15:15
--- NOTE | 2017-01-02 12:11 | HHI.GIFU ---
Subjective Remarks Resting in bed. States he had episodes of passing a large amount of "purple blood" this am and then 2 small episodes. No n/v. No abdominal pain. Objective Vitals I&O Vital Signs Date Time Temp Pulse Resp B/P Pulse Ox O2 Delivery O2 Flow Rate FiO2 01/02/17 11:50 97.4 97 20 116/85 100 01/02/17 10:17 99 21 01/02/17 07:50 96.7 89 20 124/79 96 01/02/17 04:03 97.9 77 16 135/83 96 01/02/17 00:00 97.9 77 16 122/83 98 01/01/17 21:40 73 01/01/17 20:59 97 21 01/01/17 20:00 97.0 74 16 121/83 100 01/01/17 16:00 97.6 98 20 117/82 98 I/O 01/01/17 01/01/17 01/01/17 01/02/17 01/02/17 01/02/17 07:00 15:00 23:00 07:00 15:00 23:00 Intake Total 480 ml 960 ml 500 ml 600 ml Output Total 3500 ml Balance 480 ml -2540 ml 500 ml 600 ml Intake Oral 480 ml 360 ml 500 ml 600 ml Packed Cells 600 ml Hemodialysis 3500 ml # Voids 0 1 0 1 # Bowel Movements 1 0 1 Laboratory Laboratory Tests Test 01/01/17 01/01/17 01/02/17 01/02/17 18:04 20:13 07:11 10:31 Fibrinogen 311 White Blood Count 3.5 2.9 Red Blood Count 3.01 2.47 Hemoglobin 9.6 7.5 7.3 Hematocrit 26.6 22.1 21.9 Mean Corpuscular Volume 88.4 89.3 Mean Corpuscular Hemoglobin 31.8 30.5 Mean Corpuscular Hemoglobin 35.9 34.1 Concent Red Cell Distribution Width 15.2 15.5 Platelet Count 133 110 Mean Platelet Volume 8.6 8.5 Neutrophils (%) (Auto) 75.0 70.8 Lymphocytes (%) (Auto) 9.7 10.2 Monocytes (%) (Auto) 11.4 15.0 Eosinophils (%) (Auto) 3.2 3.5 Basophils (%) (Auto) 0.7 0.5 Neutrophils # (Auto) 2.6 2.0 Lymphocytes # (Auto) 0.3 0.3 Monocytes # (Auto) 0.4 0.4 Eosinophils # (Auto) 0.1 0.1 Basophils # (Auto) 0.0 0.0 CBC Comment DIFF FINAL DIFF FINAL Differential Comment Sodium Level 139 Potassium Level 4.7 Chloride Level 99 Carbon Dioxide Level 32.7 Anion Gap 7 Blood Urea Nitrogen 55 Creatinine 5.46 Estimat Glomerular Filtration 11 Rate Random Glucose 85 Calcium Level 7.3 Phosphorus Level 4.1 Magnesium Level 1.5 Albumin 1.5 Imaging Last Impressions Abdomen Ultrasound 12/28/16 0000 Signed Impressions: Service Date/Time: Wednesday, December 28, 2016 18:52 - CONCLUSION: Pronounced gallbladder wall thickening without definite stones. Ascites. End stage kidneys Baudilio Head MD Chest X-Ray 12/27/16 0000 Signed Impressions: Service Date/Time: Tuesday, December 27, 2016 21:36 - CONCLUSION: No acute disease. Warren Max MD Physical Exam HEENT: Normocephalic; atraumatic; no jaundice. CHEST: CTA CARDIAC: RRR ABDOMEN: Soft, nondistended, nontender; no hepatosplenomegaly; bowel sounds are present in all four quadrants. EXTREMITIES: No clubbing, cyanosis, or edema. SKIN: Multiple ecchymotic areas DOUBLE NEEDLE OPERATOR LOCKSTITCH: No focal deficits; alert and oriented times three. Assessment and Plan Plan ASSESSMENT: - Recurrent GIB. Pt has had multiple hospitalizations with extensive workup with prior EGD, Enteroscopy, Colonoscopy, and GDA embolization for bleeding duodenal ulcer in the past. He last had an enteroscopy at this facility on (12/10/16)---> small ulceration/avm third portion of the duodenum, s/p 4 clips, no active bleeding, fresh blood in stomach, duodenum, washed, no further bleeding seen. Angiogram (12/10/16)----> 1. The patient has had prior GDA embolization. This prevents antegrade evaluation and access of the feeder vessels to the third portion of the duodenum. 2. I did attempt to identify collateral vessels through the pancreatic or duodenal arcade off of the SMA but none were identified. No findings of active hemorrhage. Pt has not stayed out of the hospital long enough to have capsule endoscopy. During last hospitalization, he was transferred to tertiary for double balloon enteroscopy at [facility] for recurrent bleeding. We do not have the records for this, but the patient reports that he was hospitalized from 12/12- 12/21 and that he had EGD/Enteroscopy/Colonoscopy and reports that he was found to have bleeding on the wall of his colon. He reports that he was discharged on 12/21 and has continued to have dark tarry stools since that time. He was sent to hospital for severe anemia noted at outpatient HD. HH of 4.5/13.0 on admission. S/P EGD with cauterization of AVMs (12/28/16)---- > Hiatal hernia, Gastritis, Duodenitis, Jejunal AVMs- S/P cauterization. Pt has had ongoing rectal bleeding- 4 episodes overnight, 3 so far today. Still no records from [facility], d/w nurse and she is resending release and request. S/P Rpt Enteroscopy and Colonoscopy ()---> Hiatal hernia, Nodular duodenitis, Poor colonic prep. Pt reports two episodes of rectal bleeding with a large amount of "purple blood " this am and then two additional smaller episodes. Hgb dropped from 9.6 last night to 7.5/22.1 this am. Getting stat bleeding scan. Possible enteroscopy in am. Will need capsule endoscopy SHARLENE once discharged. - Anemia, acute on chronic. S/P 13 units PRBC. - ESRD on HD M/W/F - HTN, COPD per primary PLAN: - NPO - Stat bleeding scan - Serial HH - Transfusions per primary - Possible enteroscopy in am - Protonix 40mg IV BID - Monitor H&H - Avoid anticoagulation - Supportive care - Recommend transfusing to get Hgb over 10 or 11 in hopes that we can get him to be discharged for outpatient capsule endoscopy - Capsule endoscopy as outpatient SHARLENE- will call to arrange in office once we know he will be discharged. - Further recommendations to follow based on results of above - Pt seen and examined by Dr. Corey and myself and this note is written on his behalf. Cassia Peterson Jan 02, 2017 12:11
--- NOTE | 2017-01-02 16:43 | RADRPT ---
EXAM DATE/TIME: 01/02/2017 13:59 [facility] COMPARISON: GI BLEEDING SCAN, December 09, 2016, 15:04. INDICATIONS : Blood in stool. Hemmorrhage. DOSE: 21.3 mCi Tc99m Ultratag labeled red blood cells IV IMAGIN hrs MEDICAL HISTORY : Hypertension. Renal failure, chronic. SURGICAL HISTORY : Inguinal hernia repair. Cauterized for GI bleed. ENCOUNTER: Initial ACUITY: 1 day PAIN SCALE: 0/10 LOCATION: Umbilical TECHNIQUE: Following the modified in vitro labeling of autologous red cells, dynamic continuous images were acqu ired for the specified interval. FINDINGS: BIODISTRIBUTION: There is a very good labeling of red cells without significant uptake in the gastric wall. There is good delineation of the blood pool of the spleen and abdominal vessels. BLEEDING: No episodes of active GI bleeding are observed during specified interval of continuous observation. T racer accumulation centrally in the low pelvis was seen previously and is consider excretion of free tracer by the kidneys. CONCLUSION: No evidence of active GI bleed. Warren Max MD on January 02, 2017 at 16:32 Board Certified Radiologist. This report was verified electronically.
[2017-01-02 17:40] LABS: HEMATOCRIT 21.6 % (39.0-51.0); REVIEW FLAG FINAL
[2017-01-03] VITALS (9 sets, daily range): BP systolic 105–126; BP diastolic 61–85; PULSE 70–98; RESP 16–20; TEMP 96.4–98.4; O2SAT 93–100
[2017-01-03] MEDS: PANTOPRAZOLE SODIUM 40 MG VIAL IV PUSH SCH ×3 (00:03→20:52)
[2017-01-03 01:41] LABS: REVIEW FLAG FINAL
[2017-01-03 01:42] LABS: HEMATOCRIT 18.4 % (39.0-51.0)
[2017-01-03] MEDS ORDERED: SODIUM CHLOR 0.9% 250 ML INJ 250 ML IV ONE (02:15)
[2017-01-03] MEDS: CHLORHEXIDINE GLUCONATE 2 % 1 PACK (2 CLOTHS) TOP SCH (04:00)
[2017-01-03] MEDS: SEVELAMER CARBONATE 800 MG TAB PO SCH ×3 (08:00→18:28)
[2017-01-03] MEDS: cefTRIAXone INJ 1,000 MG in SODIUM CHLORIDE 0.9% INJ 100 ML IV SCH (10:03)
[2017-01-03] MEDS: TRIAMCINOLONE ACETONIDE 0.1% CREAM 15 GM TOPICAL SCH ×2 (10:04→20:53)
[2017-01-03] MEDS: SODIUM CHLORIDE 0.9% FLUSH 5 ML FLUSH IV FLUSH SCH ×2 (10:04→20:53)
[2017-01-03 11:06] LABS: MEAN CORPUSCULAR HEMOGLOBIN 30.3 PG (27.0-34.0); MEAN CORPUSCULAR HGB CONC 33.3 % (32.0-36.0); PLATELET COUNT 123 TH/MM3 (150-450); WHITE BLOOD COUNT 1.9 TH/MM3 (4.0-11.0)
[2017-01-03 11:22] LABS: REVIEW FLAG FINAL
[2017-01-03 11:24] LABS: HEMATOCRIT 17.3 % (39.0-51.0)
--- NOTE | 2017-01-03 12:39 | HHI.NPPN ---
Subjective General Problems: Anemia, Edema Renal Failure: Chronic Interval History Seen during dialysis. He is going to GI for worsening anemia after treatment. he has no complaints today. (Sharron Lebron) Review of Systems Gastrointestinal Gastrointestinal: Blood/Tarry Stools (Sharron Lebron) Objective Data Data 01/02/17 01/03/17 19:00 07:00 Intake Total 240 ml 0 ml Balance 240 ml 0 ml Intake Oral 240 ml 0 ml # Voids 1 0 # Bowel Movements 0 0 Vital Signs Date Time Temp Pulse Resp B/P Pulse Ox O2 Delivery O2 Flow Rate FiO2 01/03/17 08:00 97.9 70 20 105/72 95 01/03/17 04:00 97.7 89 16 107/78 96 01/03/17 00:26 97.3 96 16 112/84 93 01/02/17 20:00 96.8 60 16 135/86 100 01/02/17 15:00 97.2 90 20 143/89 97 (Sharron Lebron) -: 01/03/17 1049 01/02/17 0711 Physical Exam General Appearance: Well Developed, No Acute Distress, Comfortable, Pale, Malnourished (Sharron Lebron) Throat Throat Exam: Oral Mucosa [place] & Moist (Sharron Lebron) Pulmonary Resp Exam: Clear Bilaterally, Breath Sounds Equal, No Distress (Sharron Lebron) Cardiology CV Exam: Regular, Normal Sinus Rhythm (Sharron Lebron) Gastrointestinal/Abdomen GI Exam: Soft, Non-Tender, Bowel Sounds Present (Sharron Lebron) Musculoskeletal MS Exam: Joints Intact, Normal Tone (Sharron Lebron) Integumentary Skin Exam: Warm, Dry (Sharron Lebron) Extremeties Extremities Exam: Pedal Pulses Palpable, Trace Edema (Sharron Lebron) Neurologic Neuro Exam: Oriented, Speech Clear, Moving All Extremities (Sharron Lebron) Assessment/Plan Discussed Condition With: Patient Assessment Summary: Anemia of CKD Problem List: (1) ESRD (end stage renal disease) on dialysis Plan: continue M-W-F dialysis; seen during dialysis on a 3K, 350 BFR, goal 3L no electrolyte concerns phosphorus level is acceptable has a functioning fistula for dialysis no IVF required ; avoid gadolinium in ESRD pts high protein diet (2) Anemia Plan: 4 units ordered for today; 17 PRBC will have been transfused since admission on epogen he has GIB contributing to anemia goal Hb 10-11 (3) GI bleed Plan: GI following, bleeding scan yesterday was negative, to go to GI after dialysis. EGD since admission will need capsule endoscopy outpatient severely anemic, continue blood transfusions (4) Hypertension, benign Plan: continue to monitor (5) Cirrhosis Plan: gi following ETOH cessation advised (Sharron Lebron) Plan patient was seen and examined. Seen during dialysis. Continues to bleed. Poor prognosis. (Rubén Browne MD) Problem Qualifiers (1) GI bleed: Qualified Code: K92.2 - Gastrointestinal hemorrhage, unspecified gastrointestinal hemorrhage type Sharron Lebron Jan 03, 2017 12:39 Rubén Browne MD Jan 03, 2017 15:21
--- NOTE | 2017-01-03 16:39 | HHI.GIFU ---
Subjective Remarks Resting in bed. Denies any nausea, vomiting, abdominal pain. Denies any further bleeding since yesterday. Would like to eat. Received 2 units of PRBC in HD today. (Cassia Peterson) Objective Vitals I&O Vital Signs Date Time Temp Pulse Resp B/P Pulse Ox O2 Delivery O2 Flow Rate FiO2 01/03/17 14:43 96.4 76 20 122/85 96 01/03/17 08:00 97.9 70 20 105/72 95 01/03/17 04:00 97.7 89 16 107/78 96 01/03/17 00:26 97.3 96 16 112/84 93 01/02/17 20:00 96.8 60 16 135/86 100 I/O 01/02/17 01/02/17 01/02/17 01/03/17 01/03/17 01/03/17 07:00 15:00 23:00 07:00 15:00 23:00 Intake Total 600 ml 240 ml 0 ml 0 ml Balance 600 ml 240 ml 0 ml 0 ml Intake Oral 600 ml 240 ml 0 ml 0 ml # Voids 1 1 0 0 # Bowel Movements 1 0 0 0 Laboratory Laboratory Tests Test 01/02/17 01/03/17 01/03/17 01/03/17 17:28 01:17 08:39 10:21 Hemoglobin 7.5 6.6 Hematocrit 21.6 18.4 Blood Type O POSITIVE Antibody Screen NEGATIVE Crossmatch Leukocyte-Reduced Leukocyte-Reduced Red Blood Red Blood Cells Cells Blood Bank Comment Test 01/03/17 10:49 White Blood Count 1.9 Red Blood Count 1.90 Hemoglobin 5.8 Hematocrit 17.3 Mean Corpuscular Volume 91.0 Mean Corpuscular Hemoglobin 30.3 Mean Corpuscular Hemoglobin 33.3 Concent Red Cell Distribution Width 16.0 Platelet Count 123 Mean Platelet Volume 8.7 Fibrinogen 269 Imaging Last Impressions GI Bleed Scan Nuclear Medicine 01/02/17 0000 Signed Impressions: Service Date/Time: December 13:59 - CONCLUSION: No evidence of active GI bleed. Warren Max MD Abdomen Ultrasound 12/28/16 0000 Signed Impressions: Service Date/Time: Wednesday, December 28, 2016 18:52 - CONCLUSION: Pronounced gallbladder wall thickening without definite stones. Ascites. End stage kidneys Baudilio Head MD Chest X-Ray 12/27/16 0000 Signed Impressions: Service Date/Time: Tuesday, December 27, 2016 21:36 - CONCLUSION: No acute disease. Warren Max MD Physical Exam HEENT: Normocephalic; atraumatic; no jaundice. CHEST: CTA CARDIAC: RRR ABDOMEN: Soft, nondistended, nontender; no hepatosplenomegaly; bowel sounds are present in all four quadrants. EXTREMITIES: No clubbing, cyanosis, or edema. SKIN: Multiple ecchymotic areas OLIVE PITTER: No focal deficits; alert and oriented times three. (Cassia Peterson EL TEACHER) Assessment and Plan Plan ASSESSMENT: - Recurrent GIB. Pt has had multiple hospitalizations with extensive workup with prior EGD, Enteroscopy, Colonoscopy, and GDA embolization for bleeding duodenal ulcer in the past. He last had an enteroscopy at this facility on (12/10/16)---> small ulceration/avm third portion of the duodenum, s/p 4 clips, no active bleeding, fresh blood in stomach, duodenum, washed, no further bleeding seen. Angiogram (12/10/16)----> 1. The patient has had prior GDA embolization. This prevents antegrade evaluation and access of the feeder vessels to the third portion of the duodenum. 2. I did attempt to identify collateral vessels through the pancreatic or duodenal arcade off of the SMA but none were identified. No findings of active hemorrhage. Pt has not stayed out of the hospital long enough to have capsule endoscopy. During last hospitalization, he was transferred to tertiary for double balloon enteroscopy at [facility] for recurrent bleeding. We do not have the records for this, but the patient reports that he was hospitalized from 12/12- 12/21 and that he had EGD/Enteroscopy/Colonoscopy and reports that he was found to have bleeding on the wall of his colon. He reports that he was discharged on 12/21 and has continued to have dark tarry stools since that time. He was sent to hospital for severe anemia noted at outpatient HD. HH of 4.5/13.0 on admission. S/P EGD with cauterization of AVMs (12/28/16)---- > Hiatal hernia, Gastritis, Duodenitis, Jejunal AVMs- S/P cauterization. Pt has had ongoing rectal bleeding- 4 episodes overnight, 3 so far today. Still no records from [facility], d/w nurse and she is resending release and request. S/P Rpt Enteroscopy and Colonoscopy ()---> Hiatal hernia, Nodular duodenitis, Poor colonic prep. Hgb this morning was 5.8/17.3 this morning. He received 2 units of blood in HD today. Pt reports no further bleeding since yesterday. Bleeding scan yesterday was negative. Will feed patient and plan for rpt. enteroscopy in am. Will need capsule endoscopy SHARLENE once discharged. - Anemia, acute on chronic. S/P 16 units PRBC. - ESRD on HD M/W/F - HTN, COPD per primary PLAN: - Plan for enteroscopy in am - Obtain consents - Renal diet - NPO after MN - Serial HH - Transfusions per primary - Protonix 40mg IV BID - Avoid anticoagulation - Supportive care - Capsule endoscopy as outpatient SHARLENE- will call to arrange in office once we know he will be discharged. - Further recommendations to follow based on results of above - Pt seen and examined by Dr. Salinas and myself and this note is written on his behalf. (Cassia Peterson) Physician Comments Seen and examined with VIRIDIANA, enteroscopy could not be done today due to pts. Hemodialysis. Planned for tomorrow. Monitor for bleeding. Liquid diet. ( Osmel Salinas MD) Cassia Peterson Jan 03, 2017 16:39 Osmel Salinas MD Jan 04, 2017 13:03
[2017-01-03 18:48] LABS: HEMATOCRIT 24.8 % (39.0-51.0); REVIEW FLAG FINAL
--- NOTE | 2017-01-03 19:45 | HHI.PR ---
Subjective Remarks Patient seen this morning around 10 AM. Patient says he feels well. No bowel movements today. Drop in hemoglobin. Patient received 3 units RBCs and dialysis. Objective Vital Signs Date Time Temp Pulse Resp B/P Pulse Ox O2 Delivery O2 Flow Rate FiO2 01/03/17 16:03 97.3 75 20 126/70 100 01/03/17 14:43 96.4 76 20 122/85 96 01/03/17 08:00 97.9 70 20 105/72 95 01/03/17 04:00 97.7 89 16 107/78 96 01/03/17 00:26 97.3 96 16 112/84 93 01/02/17 20:00 96.8 60 16 135/86 100 I/O 01/02/17 01/02/17 01/02/17 01/03/17 01/03/17 01/03/17 07:00 15:00 23:00 07:00 15:00 23:00 Intake Total 600 ml 240 ml 0 ml 0 ml 900 ml Output Total 3000 ml Balance 600 ml 240 ml 0 ml 0 ml -2100 ml Intake Oral 600 ml 240 ml 0 ml 0 ml Packed Cells 900 ml Hemodialysis 3000 ml # Voids 1 1 0 0 # Bowel Movements 1 0 0 0 Result Diagram: 01/03/17 1825 01/02/17 0711 Objective Remarks GENERAL: sitting up in bed. Alert and oriented 3. Appears comfortable. again unchanged. SKIN: Warm and dry. HEAD: Normocephalic. EYES: No scleral icterus. No injection or drainage. NECK: Supple, trachea midline. No JVD. CARDIOVASCULAR: Regular rate and rhythm without murmurs, gallops, or rubs. RESPIRATORY: Breath sounds equal bilaterally. No accessory muscle use. GASTROINTESTINAL: Abdomen soft, non-tender, nondistended. MUSCULOSKELETAL: No cyanosis, or edema. BACK: Nontender without obvious deformity. No CVA tenderness. A/P Assessment and Plan 61-year-old man with //History of recurrent GI bleed (Hx of duodenal ulcers/esophagitis/Gastritis //History of liver cirrhosis and ascites -GI Dr. Giles consulted. s/p EGD with cautery: Gastritis, Duodenitis , 2 AVM cauterized. Currently on IV Protonix drip, will switch to by mouth 40 mg twice a day -s/p Transfusion total of 7u PRBC since admission -Monitor H&H and transfuse for hemoglobin less than 7 -12/30. Transfuse 2 units this morning for hemoglobin of 5.8. Still 5.8 this afternoon. Transfuse another 2 units. Restart IV pantoprazole twice a day. Plan for EGD/colonoscopy tomorrow. Watch for signs of fluid overload -12/31. Hemoglobin improved. GI performed colonoscopy. Appreciate assistance. Continue to monitor. -01/01. Hemoglobin transfused again. Some dilutional leukopenia. Monitor. -01/02 drop 9s-->7.5. cont to monitor Q8h. -01/03. Another acute hemoglobin drop. Transfuse 3 units. Discussed with GI. Possible colonoscopy. Continue to monitor closely. Fibrinogen level acceptable. GI reports history of small bowel AVMs seen on double-balloon enteroscopy at outside hospital.Hematology consulted for possible von Willebrand disorder. //History of alcohol abuse -Continues Awake and alert //COPD-no exacerbation -Oxygen PRN keep sat >92% -DuoNeb every 4 hours when necessary -Continue Incentive spirometry while awake //ESRD on HD --HD per renal. Patient has left AV fistula. Received hemodialysis 12/27 -Continue Renvela //Hypertension: BP soft, continue to hold Lopressor twice a day and Lasix //leukopenia. continues Dilutional. Continue to monitor.consult hematology. //Prophylaxis: -Continue to Hold chemical DVT prophylaxis at this time due to anemia requiring transfusion, GI bleed. Lower extremity SCDs -Protonix IV twice a day Discharge Planning still requiring blood transfusions. can discharge home with home health when hemoglobin is stable, and cleared by GI. Pacheco Salgado MD Jan 03, 2017 19:45
[2017-01-04] VITALS (9 sets, daily range): BP systolic 100–131; BP diastolic 65–80; PULSE 73–92; RESP 16–22; TEMP 96.8–98.4; O2SAT 92–99
[2017-01-04 02:02] LABS: REVIEW FLAG FINAL
[2017-01-04] MEDS: CHLORHEXIDINE GLUCONATE 2 % 1 PACK (2 CLOTHS) TOP SCH (04:00)
--- NOTE | 2017-01-04 07:49 | HHI.PR ---
Subjective Remarks Patient seen and examined this am. His vitals and HB are stable, s/p 3 PRBCs yesterday Plan for enteroscopy today. Nurse reports no issues overnight. Patient states he had a liquid BM this morning that was dark and some light blood. He has remained NPO this am. He denies any abdominal pain this am. (Mary Alcantar MD R3) Objective Vital Signs Date Time Temp Pulse Resp B/P Pulse Ox O2 Delivery O2 Flow Rate FiO2 01/04/17 04:00 97.7 76 16 127/78 98 01/04/17 00:16 79 01/04/17 00:00 97.9 90 18 120/77 95 01/03/17 21:15 98.4 98 18 112/61 99 01/03/17 20:48 79 01/03/17 20:38 98.1 93 18 116/78 98 01/03/17 20:00 98.1 93 18 116/78 98 01/03/17 16:03 97.3 75 20 126/70 100 01/03/17 14:43 96.4 76 20 122/85 96 01/03/17 08:00 97.9 70 20 105/72 95 I/O 01/03/17 01/03/17 01/03/17 01/04/17 01/04/17 01/04/17 07:00 15:00 23:00 07:00 15:00 23:00 Intake Total 0 ml 900 ml 480 ml Output Total 3000 ml Balance 0 ml -2100 ml 480 ml Intake Oral 0 ml 480 ml Packed Cells 900 ml Hemodialysis 3000 ml # Voids 0 1 1 # Bowel Movements 0 (Mary Alcantar MD R3) Result Diagram: 01/04/17 0128 01/02/17 0711 Imaging Last Impressions GI Bleed Scan Nuclear Medicine 01/02/17 0000 Signed Impressions: Service Date/Time: December 13:59 - CONCLUSION: No evidence of active GI bleed. Warren Max MD Abdomen Ultrasound 12/28/16 0000 Signed Impressions: Service Date/Time: Wednesday, December 28, 2016 18:52 - CONCLUSION: Pronounced gallbladder wall thickening without definite stones. Ascites. End stage kidneys Baudilio Head MD Chest X-Ray 12/27/16 0000 Signed Impressions: Service Date/Time: Tuesday, December 27, 2016 21:36 - CONCLUSION: No acute disease. Warren Max MD Other Results GENERAL: sitting up in bed. Alert and oriented 3. Appears comfortable. again unchanged. SKIN: Warm and dry. Patches of hair missing. Appears slightly jaundice. HEAD: Normocephalic. EYES: No scleral icterus. No injection or drainage. NECK: Supple, trachea midline. No JVD. CARDIOVASCULAR: Regular rate and rhythm without murmurs, gallops, or rubs. RESPIRATORY: Breath sounds equal bilaterally. No accessory muscle use. GASTROINTESTINAL: Abdomen soft, non-tender, nondistended. MUSCULOSKELETAL: No cyanosis, or edema. BACK: Nontender without obvious deformity. No CVA tenderness. (Mary Alcantar MD R3) A/P Problem List: (1) DVT prophylaxis (2) Hypertension ICD Code: I10 (3) GI bleed ICD Code: K92.2 (4) ESRD (end stage renal disease) on dialysis ICD Code: N18.6 (5) COPD (chronic obstructive pulmonary disease) ICD Code: J44.9 (6) Cirrhosis ICD Code: K74.60 (7) Leukopenia ICD Code: D72.819 (8) Hypocalcemia ICD Code: E83.51 Assessment and Plan This is a 61 yo male hx of recurrent GI bleed, COPD, ESRD on dialysis, and HTN being treated for: 1. Recurrent GI Bleed recurrent GI bleed (Hx of duodenal ulcers/esophagitis/Gastritis) Hospitalization hx, "-GI Dr. Giles consulted. s/p EGD with cautery: Gastritis, Duodenitis , 2 AVM cauterized. Currently on IV Protonix drip, will switch to by mouth 40 mg twice a day -12/30. Transfuse 2 units this morning for hemoglobin of 5.8. Still 5.8 this afternoon. Transfuse another 2 units. Restart IV pantoprazole twice a day. Plan for EGD/colonoscopy tomorrow. -12/31. Hemoglobin improved. GI performed colonoscopy. Appreciate assistance. Continue to monitor. -01/01. Hemoglobin transfused again. Some dilutional leukopenia. Monitor. -01/02 drop 9s-->7.5. cont to monitor Q8h. -01/03. Another acute hemoglobin drop. Transfuse 3 units. Discussed with GI. Possible colonoscopy. Continue to monitor closely. Fibrinogen level acceptable. GI reports history of small bowel AVMs seen on double-balloon enteroscopy at outside hospital.Hematology consulted for possible von Willebrand disorder. 01/04: patient has received a total of 13 units of PRBCs. His hb is stable this morning at 8.5. Patient is NPO and will have enteroscopy this am. Further recommendations by GI. 2. COPD: stable w/o exacerbation. Duobens prn. 3. HTN: stable clonodine prn. 4. ESRD on dialysis: followed by nephro, [facility] MWF 5. Leukopenia: heme has been consulted. Continues to decrease during hospitalization. Patient is currently on rocephin 12/28-01/04, no signs of infection. Will stop this. 6. Hypocalcemia: 7.3, when corrected for albumin is 8.8. Not truly hypocalcemia. Case discussed with nurse. Discharge Planning d/c pending stabilization of Hb and further workup by GI. (Mary Alcantar MD R3) Problem Qualifiers (1) GI bleed: Qualified Code: K92.2 - Gastrointestinal hemorrhage, unspecified gastrointestinal hemorrhage type (2) COPD (chronic obstructive pulmonary disease): (3) Cirrhosis: Mary Alcantar MD R3 Jan 04, 2017 07:49 Tiffanie Tapia MD Jan 04, 2017 15:21
[2017-01-04] MEDS: SEVELAMER CARBONATE 800 MG TAB PO SCH ×3 (07:54→16:11)
[2017-01-04] MEDS: TRIAMCINOLONE ACETONIDE 0.1% CREAM 15 GM TOPICAL SCH ×2 (08:02→20:35)
[2017-01-04] MEDS: SODIUM CHLORIDE 0.9% FLUSH 5 ML FLUSH IV FLUSH SCH ×2 (08:02→20:35)
[2017-01-04 09:47] LABS: AUTOMATED NEUTROPHIL # 1.3 TH/MM3 (1.8-7.7); BASOPHIL % 0.9 % (0.0-2.0); EOSINOPHIL # 0.1 TH/MM3 (0-0.4); EOSINOPHIL % 3.2 % (0.0-4.0); HEMO FLAGS DIFF FINAL; LYMPH % 21.7 % (9.0-44.0); LYMPHOCYTE # 0.5 TH/MM3 (1.0-4.8); MEAN CELL VOLUME 90.2 FL (80.0-100.0); MEAN CORPUSCULAR HEMOGLOBIN 31.1 PG (27.0-34.0); MEAN CORPUSCULAR HGB CONC 34.4 % (32.0-36.0); MONO % 16.7 % (0.0-8.0); NEUT % 57.5 % (16.0-70.0); PLATELET COUNT 120 TH/MM3 (150-450); RED BLOOD COUNT 2.66 MIL/MM3 (4.50-5.90); RED CELL DISTRIBUTION WIDTH 14.8 % (11.6-17.2); WHITE BLOOD COUNT 2.3 TH/MM3 (4.0-11.0)
--- NOTE | 2017-01-04 11:05 | HHI.NPPN ---
Subjective General Problems: Anemia, Edema Renal Failure: Chronic Additional Remarks Reports ongoing blood in stools. Tolerated HD yesterday Review of Systems Gastrointestinal Gastrointestinal: Blood/Tarry Stools Objective Data Data 01/03/17 01/04/17 19:00 07:00 Intake Total 900 ml 480 ml Output Total 3000 ml Balance -2100 ml 480 ml Intake Oral 480 ml Packed Cells 900 ml Hemodialysis 3000 ml # Voids 2 Vital Signs Date Time Temp Pulse Resp B/P Pulse Ox O2 Delivery O2 Flow Rate FiO2 01/04/17 08:44 96.8 80 16 131/80 99 01/04/17 04:00 97.7 76 16 127/78 98 01/04/17 00:16 79 01/04/17 00:00 97.9 90 18 120/77 95 01/03/17 21:15 98.4 98 18 112/61 99 01/03/17 20:48 79 01/03/17 20:38 98.1 93 18 116/78 98 01/03/17 20:00 98.1 93 18 116/78 98 01/03/17 16:03 97.3 75 20 126/70 100 01/03/17 14:43 96.4 76 20 122/85 96 -: 01/04/17 0930 01/02/17 0711 Physical Exam General Appearance: Well Developed, No Acute Distress, Comfortable, Pale, Malnourished Throat Throat Exam: Oral Mucosa [place] & Moist Pulmonary Resp Exam: Clear Bilaterally, Breath Sounds Equal, No Distress Cardiology CV Exam: Regular, Normal Sinus Rhythm Gastrointestinal/Abdomen GI Exam: Soft, Non-Tender, Bowel Sounds Present Musculoskeletal MS Exam: Joints Intact, Normal Tone Integumentary Skin Exam: Warm, Dry Extremeties Extremities Exam: Pedal Pulses Palpable, Trace Edema Neurologic Neuro Exam: Oriented, Speech Clear, Moving All Extremities Assessment/Plan Discussed Condition With: Patient Assessment Summary: Anemia of CKD Problem List: (1) ESRD (end stage renal disease) on dialysis Plan: Continue -W- dialysis; Tolerated HD yesterday, plan next HD Friday has a functioning fistula for dialysis no IVF required ; avoid gadolinium in ESRD pts high protein diet (2) Anemia Plan: Hgb stable at 8 today, continue transfusions as needed. Reported blood in stools, plan for enteroscopy today. (3) GI bleed Plan: GI following, bleeding scan yesterday was negative, to go to GI after dialysis. EGD since admission will need capsule endoscopy outpatient severely anemic, continue blood transfusions (4) Hypertension, benign Plan: continue to monitor (5) Cirrhosis Plan: gi following ETOH cessation advised Plan Problem Qualifiers (1) GI bleed: Qualified Code: K92.2 - Gastrointestinal hemorrhage, unspecified gastrointestinal hemorrhage type (2) Cirrhosis: Deyvi Schuster MD Jan 04, 2017 11:05
[2017-01-04] MEDS: PANTOPRAZOLE SODIUM 40 MG VIAL IV PUSH SCH (12:26)
--- NOTE | 2017-01-04 14:41 | HHI.GIFU ---
Subjective Remarks Patient is resting in bed, reports having one dark bloody stool this am, none since, no abdomen pain, no nausea, no vomiting. He was scheduled to have enteroscopy today, however, too many traumas arriving in the ED, and this might be pushed to tomorrow (Irma Jacobsen) Objective Vitals I&O Vital Signs Date Time Temp Pulse Resp B/P Pulse Ox O2 Delivery O2 Flow Rate FiO2 01/04/17 12:50 97.6 73 16 113/65 98 01/04/17 08:44 96.8 80 16 131/80 99 01/04/17 04:00 97.7 76 16 127/78 98 01/04/17 00:16 79 01/04/17 00:00 97.9 90 18 120/77 95 01/03/17 21:15 98.4 98 18 112/61 99 01/03/17 20:48 79 01/03/17 20:38 98.1 93 18 116/78 98 01/03/17 20:00 98.1 93 18 116/78 98 01/03/17 16:03 97.3 75 20 126/70 100 01/03/17 14:43 96.4 76 20 122/85 96 I/O 01/03/17 01/03/17 01/03/17 01/04/17 01/04/17 01/04/17 07:00 15:00 23:00 07:00 15:00 23:00 Intake Total 0 ml 900 ml 480 ml Output Total 3000 ml Balance 0 ml -2100 ml 480 ml Intake Oral 0 ml 480 ml Packed Cells 900 ml Hemodialysis 3000 ml # Voids 0 1 1 # Bowel Movements 0 Laboratory Laboratory Tests Test 01/03/17 01/04/17 01/04/17 18:25 01:28 09:30 Hemoglobin 8.6 8.5 8.2 Hematocrit 24.8 25.0 24.0 White Blood Count 2.3 Red Blood Count 2.66 Mean Corpuscular Volume 90.2 Mean Corpuscular Hemoglobin 31.1 Mean Corpuscular Hemoglobin 34.4 Concent Red Cell Distribution Width 14.8 Platelet Count 120 Mean Platelet Volume 8.7 Neutrophils (%) (Auto) 57.5 Lymphocytes (%) (Auto) 21.7 Monocytes (%) (Auto) 16.7 Eosinophils (%) (Auto) 3.2 Basophils (%) (Auto) 0.9 Neutrophils # (Auto) 1.3 Lymphocytes # (Auto) 0.5 Monocytes # (Auto) 0.4 Eosinophils # (Auto) 0.1 Basophils # (Auto) 0.0 CBC Comment DIFF FINAL Differential Comment Imaging Last Impressions GI Bleed Scan Nuclear Medicine 01/02/17 0000 Signed Impressions: Service Date/Time: December 13:59 - CONCLUSION: No evidence of active GI bleed. Warren Max MD Abdomen Ultrasound 12/28/16 0000 Signed Impressions: Service Date/Time: Wednesday, December 28, 2016 18:52 - CONCLUSION: Pronounced gallbladder wall thickening without definite stones. Ascites. End stage kidneys Baudilio Head MD Chest X-Ray 12/27/16 0000 Signed Impressions: Service Date/Time: Tuesday, December 27, 2016 21:36 - CONCLUSION: No acute disease. Warren Max MD Physical Exam HEENT: Normocephalic; atraumatic; no jaundice. CHEST: CTA CARDIAC: RRR ABDOMEN: Soft, nondistended, nontender; no hepatosplenomegaly; bowel sounds are present in all four quadrants. EXTREMITIES: No clubbing, cyanosis, or edema. SKIN: Multiple ecchymotic areas [employer] REPRESENTATIVE: No focal deficits; alert and oriented times three. (Irma Jacobsen) Assessment and Plan Plan ASSESSMENT: - Recurrent GIB. Pt has had multiple hospitalizations with extensive workup with prior EGD, Enteroscopy, Colonoscopy, and GDA embolization for bleeding duodenal ulcer in the past. He last had an enteroscopy at this facility on (12/10/16)---> small ulceration/avm third portion of the duodenum, s/p 4 clips, no active bleeding, fresh blood in stomach, duodenum, washed, no further bleeding seen. Angiogram (12/10/16)----> 1. The patient has had prior GDA embolization. This prevents antegrade evaluation and access of the feeder vessels to the third portion of the duodenum. 2. I did attempt to identify collateral vessels through the pancreatic or duodenal arcade off of the SMA but none were identified. No findings of active hemorrhage. Pt has not stayed out of the hospital long enough to have capsule endoscopy. During last hospitalization, he was transferred to tertiary for double balloon enteroscopy at [facility] for recurrent bleeding. We do not have the records for this, but the patient reports that he was hospitalized from 12/12- 12/21 and that he had EGD/Enteroscopy/Colonoscopy and reports that he was found to have bleeding on the wall of his colon. He reports that he was discharged on 12/21 and has continued to have dark tarry stools since that time. He was sent to hospital for severe anemia noted at outpatient HD. HH of 4.5/13.0 on admission. S/P EGD with cauterization of AVMs (12/28/16)---- > Hiatal hernia, Gastritis, Duodenitis, Jejunal AVMs- S/P cauterization. Pt has had ongoing rectal bleeding- 4 episodes overnight, 3 so far today. Still no records from [facility], d/w nurse and she is resending release and request. S/P Rpt Enteroscopy and Colonoscopy ()---> Hiatal hernia, Nodular duodenitis, Poor colonic prep. Hgb this morning was 5.8/17.3 this morning. He received 2 units of blood in HD today. Pt reports no further bleeding since yesterday. Bleeding scan yesterday was negative. Will feed patient and plan for rpt. enteroscopy in am. Will need capsule endoscopy SHARLENE once discharged. - Anemia, acute on chronic. S/P 16 units PRBC. - ESRD on HD M/W/F - HTN, COPD per primary 01/04/17- reports having one dark bloody stool this am, none since, no abdomen pain, no nausea, no vomiting. He was scheduled to have enteroscopy today, however, too many traumas arriving in the ED, and this might be pushed to tomorrow, he received 5 units yesterday for a total of 17 units. hgb 8.2 PLAN: - Clear liquids, case was discussed with nurse, if scope today, will make NPO 2 hours prior - Plan for enteroscopy either later today or in am - NPO after MN - Serial HH - Hh in the am - Transfusions per primary - Protonix 40mg IV BID - Avoid anticoagulation - Supportive care - Capsule endoscopy as outpatient SHARLENE- will call to arrange in office once we know he will be discharged. - Consider tertiary evaluation - Further recommendations to follow based on results of above - Pt seen and examined by Dr. Salinas and myself and this note is written on his behalf. (Irma Jacobsen) Physician Comments Seen and examined, continues to bleed. Repeat endoscopy planned. Monitor labs closely. (Osmel Salinas MD) Irma Jacobsen Jan 04, 2017 14:41 Osmel Salinas MD Jan 05, 2017 14:46
--- NOTE | 2017-01-04 15:50 | MB ---
cc: MANDY JIMENEZ DATE OF CONSULTATION: 01/04/2017. REASON FOR CONSULTATION: Patient with recurrent GI bleeds and severe anemia. I have been consulted to evaluate for any underlying bleeding diastases. CHIEF COMPLAINT: "I'm doing okay". HISTORY OF PRESENT ILLNESS: Mr. Sage is a 61-year-old male who has a past medical history of alcohol abuse, end-stage renal disease, recurrent GI bleeding requiring multiple endoscopic evaluations. He has also undergone embolization by IR. He follows with nephrology and undergoes hemodialysis. He was sent to the emergency department with severe dyspnea and weakness. In the emergency department, he was found to be severely anemic with a hemoglobin of 4.5. He was given two units of packed red blood cells. The patient was hypotensive on admission. He was admitted to the intensive care unit. The patient has had extensive GI workup in the past as stated above. He had a double balloon enteroscopy at [facility] in November of 2016. The results of this enteroscopy are unknown at this time. He was found to have esophagitis and gastritis in the past. He had a tubular adenoma. He was found to have small bowel ulceration with AVMs in the third portion of the duodenum. He has had four clips placed in the past. He has also undergone GDA embolization. The patient is currently being evaluated by GI. The patient does not have any past history of bleeding disorders and according to the patient, his issues with GI bleeding started to occur in 2014. He has had teeth extraction in the past and also had exploratory abdominal surgery. Postoperatively he did not have any excessive bleeding. He has no history of mucosal bleeding. He does not have any nose bleeds or gum bleeds. He does not bruise easily. He does not have any petechiae. He denies any hematuria. REVIEW OF SYSTEMS: A comprehensive 14-point review of systems was completed which is negative except as described in the history of present illness. PAST MEDICAL HISTORY: 1. History of end-stage renal disease on hemodialysis Friday, Friday and Friday. 2. History of alcohol abuse, 3. Bipolar disorder. 4. Congestive heart failure. 5. COPD. 6. Epilepsy. 7. Gout. 8. Hypertensive nephropathy. 9. Hypertension. 10. Peptic ulcer disease. 11. History of GI bleeding. 12. History of colon polyps. PAST SURGICAL HISTORY: 1. Hernia repair. 2. AV fistula placement. 3. Dialysis catheter placement. 4. Some sort of neck mass removal. 5. History of multiple EGDs and colonoscopies. INPATIENT MEDICATIONS: 1. Zofran 4 milligrams one tablet p.o. q.6 h PRN. 2. Protonix 40 milligrams IV q.12 h. 3. Tylenol 650 p.o. q.6 h. 4. Zofran 4 mg IV q. q.6 h PRN. 5. Benadryl 25 milligrams one tablet p.o. PRN. 6. Clonidine 0.1 milligrams p.o. PRN. 7. Epogen injections 10,000 units with dialysis. 8. Renvela 2400 milligrams p.o. three times a day. 9. Triamcinolone Cream topical. 10. DuoNeb q. 2 hours PRN. ALLERGIES: 1. CHANTIX. 2. HALDOL. 3. INVEGA SUSTENNA. 4. LITHIUM. 5. RISPERDAL. 6. THORAZINE. 7. VALPROIC ACID. 8. WELLBUTRIN. Social History: denies smoking cigarettes, drinks 1-2 mixed cocktails daily. drank heavily before Family History: reviewed and NC to this admission PHYSICAL EXAMINATION: VITAL SIGNS: Blood pressure is 113/65, pulse is in the 70s, temperature is 97.6, respiratory rate is 14, 02 saturations are 98% on room air. GENERAL: Chronically ill-appearing male in no apparent distress. HEAD, EYES, EARS, NOSE, THROAT: Pupils are equal, round and reactive to light. Extraocular muscles intact. No oral thrush. No oral lesions. NECK: The neck is supple. No jugular venous distention. No bruits. No lymphadenopathy. CHEST: Clear to auscultation bilaterally. CARDIAC: S1 and S2. Regular rate and rhythm. ABDOMEN: The abdomen is soft, nontender and nondistended. Bowel sounds are present. EXTREMITIES: Without any edema, erythema or cyanosis. SKIN: Without any petechiae, lesions or bruits. NEUROLOGIC: No focal deficits. PSYCHIATRIC: Mood and affect are appropriate. LABORATORY DATA: WBCs 2.3, hemoglobin is 8.2, platelet count is 120,000. Serum chemistries show sodium 139, potassium 4.7, chloride 99, CO2 32.7, BUN is 55, albumin is 1.5. Coags show PT of 10.9, INR is 1, PTT is 25.6. Fibrinogen is 26.9. ASSESSMENT AND PLAN: This is a 61-year-old male with a past medical history of end-stage renal disease, history of multiple GI bleeds who presents with generalized weakness, dyspnea and was found to be severely anemic. 1.Acute anemia secondary to GI bleed. He has had AVMs in the past. These are in the small duodenum. He recently had balloon enteroscopy at [facility] and we do not have the results of the enteroscopy. The patient is currently being evaluated by GI. I discussed the case with Dr. Salinas. The patient's coags are completely normal. His platelet count is above 100,000. I have been asked to evaluate for any underlying bleeding diathesis. Based on his clinical history, this does not appear to be underlying von Willebrand disease. Von Willebrand panel is pending. We will check platelet function assay. He does have chronic kidney disease which can contribute to bleeding diathesis but I do not see any other obvious reason which would cause him to have a clotting abnormality. If he does have additional GI bleeding, I would recommend giving him fresh frozen plasma. The patient probably needs to be transferred to a tertiary care center where he can have a repeat double balloon enteroscopy. 2. Mild leukopenia. His ANC is greater than 1200. 3. Thrombocytopenia. This is mild. It appears that he has had mild thrombocytopenia previously. Will check LDH and haptoglobin. His fibrinogen is preserved. This does not appear to be DIC. We should obtain hepatitis panel. Obtain an abdominal ultrasound to evaluate for hepatosplenomegaly. Thank you for allowing me to participate in the care of this patient. I will continue to follow this patient along. MD LUNA Miranda/MANUEL /2:53 PM /3:30 PM MARIA DEL CARMEN
[2017-01-04 17:57] LABS: REVIEW FLAG FINAL
[2017-01-04 18:19] LABS: TOTAL PROTEIN SPE 3.5 GM/DL (6.0-7.6)
[2017-01-05] VITALS (9 sets, daily range): BP systolic 97–140; BP diastolic 59–72; PULSE 69–86; RESP 16–20; TEMP 97.3–98.2; O2SAT 94–100
[2017-01-05] MEDS: PANTOPRAZOLE SODIUM 40 MG VIAL IV PUSH SCH ×3 (00:07→23:12)
[2017-01-05] MEDS: ACETAMINOPHEN 325 MG TAB PO PRN ×2 (03:19→23:57)
[2017-01-05] MEDS: CHLORHEXIDINE GLUCONATE 2 % 1 PACK (2 CLOTHS) TOP SCH (03:19)
[2017-01-05 06:24] LABS: AUTOMATED NEUTROPHIL # 0.8 TH/MM3 (1.8-7.7); BASOPHIL % 0.8 % (0.0-2.0); EOSINOPHIL # 0.1 TH/MM3 (0-0.4); LYMPH % 31.9 % (9.0-44.0); LYMPHOCYTE # 0.5 TH/MM3 (1.0-4.8); MEAN CELL VOLUME 91.6 FL (80.0-100.0); MEAN CORPUSCULAR HEMOGLOBIN 30.9 PG (27.0-34.0); MEAN CORPUSCULAR HGB CONC 33.7 % (32.0-36.0); MONO % 13.8 % (0.0-8.0); NEUT % 49.5 % (16.0-70.0); PLATELET COUNT 111 TH/MM3 (150-450); RED BLOOD COUNT 1.92 MIL/MM3 (4.50-5.90); RED CELL DISTRIBUTION WIDTH 15.3 % (11.6-17.2); WHITE BLOOD COUNT 1.6 TH/MM3 (4.0-11.0)
[2017-01-05 06:27] LABS: HEMO FLAGS AUTO DIFF
[2017-01-05 06:29] LABS: HEMATOCRIT 17.6 % (39.0-51.0)
[2017-01-05 06:54] LABS: BICARBONATE 28.2 MEQ/L (21.0-32.0); POTASSIUM 5.3 MEQ/L (3.5-5.1)
[2017-01-05] MEDS ORDERED: SODIUM CHLOR 0.9% 250 ML INJ 250 ML IV ONE (07:00)
[2017-01-05 07:24] LABS: CALCIUM-PROTEIN CORRECTED 9.4 MG/DL (8.5-10.1)
[2017-01-05] MEDS: SEVELAMER CARBONATE 800 MG TAB PO SCH ×3 (08:00→16:43)
[2017-01-05] MEDS: SODIUM CHLORIDE 0.9% FLUSH 5 ML FLUSH IV FLUSH SCH ×2 (08:15→20:48)
[2017-01-05] MEDS: TRIAMCINOLONE ACETONIDE 0.1% CREAM 15 GM TOPICAL SCH ×2 (08:17→20:48)
[2017-01-05 10:03] LABS: BANDS 1 % (0-6); POLYS (SEG NEUTROPHILS) 60 % (16-70); WBC DIFF SAMPLE 100
[2017-01-05 10:04] LABS: PLATELET ESTIMATE SMEAR LOW (NORMAL); PLATELET MORPHOLOGY NORMAL (NORMAL); SCAN/DIFF FINAL DIFF MANUAL
--- NOTE | 2017-01-05 10:47 | PD.ONC.PN ---
Subjective Subjective Remarks This report is in ERROR Please disregard this report and all prior copies ! This report is in ERROR Please disregard this report and all prior copies ! This report is in ERROR Please disregard this report and all prior copies ! Afebrile overnight. Objective Data Date Time Temp Pulse Resp B/P Pulse Ox O2 Delivery O2 Flow Rate FiO2 01/05/17 08:07 98.2 81 16 108/66 100 01/05/17 08:06 98.2 81 16 108/66 100 01/05/17 07:39 98.2 82 16 97/59 96 01/05/17 04:47 97.8 79 20 112/72 94 01/05/17 00:12 98.2 86 20 108/72 96 01/04/17 20:49 98.4 88 22 100/68 92 01/04/17 20:00 88 01/04/17 16:00 98.4 88 16 101/72 97 01/04/17 12:50 97.6 73 16 113/65 98 01/05/17 01/05/17 01/05/17 07:00 15:00 23:00 Intake Total 0 ml Balance 0 ml Result Diagram: 01/05/17 0545 01/05/17 0545 Laboratory Results Laboratory Tests Test 01/04/17 01/05/17 01/05/17 17:15 05:45 06:54 Hemoglobin 8.0 GM/DL 5.9 GM/DL Hematocrit 23.0 % 17.6 % Haptoglobin 121 MG/DL Lactate Dehydrogenase 147 U/L Total Protein 3.5 GM/DL 3.3 GM/DL Immunoglobulin G Total 460 MG/DL Immunoglobulin A 163 MG/DL Immunoglobulin M 38 MG/DL Blood Type O POSITIVE O POSITIVE Direct Antiglobulin Test NEGATIVE (Sam) White Blood Count 1.6 TH/MM3 Red Blood Count 1.92 MIL/MM3 Mean Corpuscular Volume 91.6 FL Mean Corpuscular Hemoglobin 30.9 PG Mean Corpuscular Hemoglobin 33.7 % Concent Red Cell Distribution Width 15.3 % Platelet Count 111 TH/MM3 Mean Platelet Volume 8.9 FL Neutrophils (%) (Auto) 49.5 % Lymphocytes (%) (Auto) 31.9 % Monocytes (%) (Auto) 13.8 % Eosinophils (%) (Auto) 4.0 % Basophils (%) (Auto) 0.8 % Neutrophils # (Auto) 0.8 TH/MM3 Lymphocytes # (Auto) 0.5 TH/MM3 Monocytes # (Auto) 0.2 TH/MM3 Eosinophils # (Auto) 0.1 TH/MM3 Basophils # (Auto) 0.0 TH/MM3 CBC Comment AUTO DIFF Differential Total Cells 100 Counted Neutrophils % (Manual) 60 % Band Neutrophils % 1 % Lymphocytes % 28 % Monocytes % 11 % Neutrophils # (Manual) 1.0 TH/MM3 Differential Comment FINAL DIFF MANUAL Platelet Estimate LOW Platelet Morphology Comment NORMAL Sodium Level 139 MEQ/L Potassium Level 5.3 MEQ/L Chloride Level 100 MEQ/L Carbon Dioxide Level 28.2 MEQ/L Anion Gap 11 MEQ/L Blood Urea Nitrogen 92 MG/DL Creatinine 7.32 MG/DL Estimat Glomerular Filtration 8 ML/MIN Rate Random Glucose 82 MG/DL Calcium Level 7.1 MG/DL Protein Corrected Calcium 9.4 MG/DL Crossmatch Leukocyte-Reduced Red Blood Cells Blood Bank Comment Administered Medications Medications (Trade) Dose Ordered Sig/Shiela Route PRN Reason Start Time Stop Time Status Last Admin Dose Admin IV Flush (NS Flush) 2 ml BID IV FLUSH 12/28/16 09:00 01/05/17 08:15 Chlorhexidine Gluconate (Chlorhexidine 2% Cloth) Taper DAILY@04 TOP 12/28/16 04:00 12/24/17 03:59 01/03/17 04:00 Triamcinolone Acetonide (Aristocort 0.1% Cream) 1 applic Q12HR TOPICAL 12/28/16 09:00 01/04/17 20:35 Sevelamer Carbonate 2400 mg 2,400 mg TIDAC PO 12/29/16 12:00 01/03/17 18:28 Sodium Chloride (NS 1000 ml Inj) 1,000 ml @ 200 mls/hr Q5H PRN IV WITH DIALYSIS 12/30/16 16:32 12/30/16 17:11 Epoetin Rayo (Epogen Inj) 10,000 units UNSCH PRN IV WITH DIALYSIS 12/30/16 16:45 01/01/17 13:00 Gelatin (Gelfoam 12 Mm/7 Mm Top) 1 foam UNSCH PRN TOP SEE LABEL COMMENTS 12/30/16 16:45 12/30/16 17:10 Acetaminophen (Tylenol) 650 mg Q6HR PRN PO PAIN SCALE 1 TO 10 12/30/16 19:30 01/05/17 03:19 Pantoprazole Sodium (Protonix Inj) 40 mg Q12H IV PUSH 12/30/16 23:00 01/05/17 00:07 Ondansetron HCl 4 mg 4 mg Q6H PRN PO NAUSEA IF ABLE TO TAKE PO 12/31/16 16:45 12/31/16 17:25 Sodium Chloride (NS 250 ml Inj) 250 ml @ 15 mls/hr ONCE ONCE IV 01/05/17 07:00 01/05/17 23:39 01/05/17 07:47 Assessment/Plan Problem List: (1) GI (gastrointestinal bleed) Status: Acute Plan: --has undergone embolization by IR. --s/p double balloon enteroscopy at [facility] in 11/2016 --h/o small bowel ulceration with AVMs in the third portion of the duodenum. has had four clips placed in the past. --has also undergone GDA embolization. --von Willebrand panel is pending. --platelet function assay. --chronic kidney disease can contribute to bleeding diathesis (2) Leukopenia Status: Acute Plan: --monitor --possibly due to bone marrow suppression from alcoholism --ANC>500K (3) Normocytic anemia due to blood loss Status: Acute Plan: --recommend giving FFP if has additional GIB --transfuse pRBC as needed (4) Thrombocytopenia Status: Acute Plan: --is mild. --LDH and haptoglobin WNL --hepatitic panel pending --abdominal u/s shows gallbladder thickening and ascites. end stage kidneys/ Assessment 61y/o male with with recurrent GI bleeds and severe anemia. Hematology consulted to evaluate for underlying bleeding diastases. history of alcohol abuse, end-stage renal disease, recurrent GI bleeding requiring multiple endoscopic evaluations. on hemodialysis Friday, Friday and Friday. Bipolar disorder. Congestive heart failure. COPD. Epilepsy. Gout. Problem Qualifiers (1) GI (gastrointestinal bleed): Qualified Code: K92.2 - Gastrointestinal hemorrhage, unspecified gastrointestinal hemorrhage type Ngozi Sy Jan 05, 2017 10:47 Problem Qualifiers (1) GI (gastrointestinal bleed): Qualified Code: K92.2 - Gastrointestinal hemorrhage, unspecified gastrointestinal hemorrhage type Ngozi Sy Jan 05, 2017 10:47
[2017-01-05] MEDS ORDERED: PROPOFOL 200 MG/20 ML AMP IV ONE (11:32)
[2017-01-05] MEDS ORDERED: DO NOT ADM ANY ANTICOAGULANT DRUGS XX PRN (11:45)
--- NOTE | 2017-01-05 11:45 | HHI.PR ---
Subjective Remarks Patient seen and examined this am. S/P enteroscopy by GI He denies any abdominal pain this am. Denies N/V. S/P 2 units this am. He is requesting for his diet to be advanced. (Mary Alcantar MD R3) Objective Vital Signs Date Time Temp Pulse Resp B/P Pulse Ox O2 Delivery O2 Flow Rate FiO2 01/05/17 10:59 97.5 69 22 101/64 100 Nasal Cannula 2 01/05/17 08:07 98.2 81 16 108/66 100 01/05/17 08:06 98.2 81 16 108/66 100 01/05/17 07:39 98.2 82 16 97/59 96 01/05/17 04:47 97.8 79 20 112/72 94 01/05/17 00:12 98.2 86 20 108/72 96 01/04/17 20:49 98.4 88 22 100/68 92 01/04/17 20:00 88 01/04/17 16:00 98.4 88 16 101/72 97 01/04/17 12:50 97.6 73 16 113/65 98 I/O 01/04/17 01/04/17 01/04/17 01/05/17 01/05/17 01/05/17 07:00 15:00 23:00 07:00 15:00 23:00 Intake Total 360 ml 360 ml 0 ml 375 ml Balance 360 ml 360 ml 0 ml 375 ml Intake Oral 360 ml 360 ml 0 ml Packed Cells 250 ml Other 125 ml # Voids 1 2 3 3 # Bowel Movements 2 2 (Mary Alcantar MD R3) Result Diagram: 01/05/17 0545 01/05/17 0545 Procedures Last Impressions GI Bleed Scan Nuclear Medicine 01/02/17 0000 Signed Impressions: Service Date/Time: December 13:59 - CONCLUSION: No evidence of active GI bleed. Warren Max MD Abdomen Ultrasound 12/28/16 0000 Signed Impressions: Service Date/Time: Wednesday, December 28, 2016 18:52 - CONCLUSION: Pronounced gallbladder wall thickening without definite stones. Ascites. End stage kidneys Baudilio Head MD Chest X-Ray 12/27/16 0000 Signed Impressions: Service Date/Time: Tuesday, December 27, 2016 21:36 - CONCLUSION: No acute disease. Warren F. Mansoor, MD Other Results GENERAL: sitting up in bed. Alert and oriented 3. Appears comfortable. SKIN: Warm and dry. Patches of hair missing. Appears slightly jaundice. HEAD: Normocephalic. EYES: No scleral icterus. No injection or drainage. NECK: Supple, trachea midline. No JVD. CARDIOVASCULAR: Regular rate and rhythm without murmurs, gallops, or rubs. RESPIRATORY: Breath sounds equal bilaterally. No accessory muscle use. GASTROINTESTINAL: Abdomen soft, non-tender, nondistended. MUSCULOSKELETAL: No cyanosis, or edema. BACK: Nontender without obvious deformity. No CVA tenderness. (Mary Alcantar MD R3) A/P Problem List: (1) DVT prophylaxis (2) Hypertension ICD Code: I10 (3) GI bleed ICD Code: K92.2 (4) ESRD (end stage renal disease) on dialysis ICD Code: N18.6 (5) COPD (chronic obstructive pulmonary disease) ICD Code: J44.9 (6) Cirrhosis ICD Code: K74.60 (7) Leukopenia ICD Code: D72.819 (8) Hypocalcemia ICD Code: E83.51 Assessment and Plan This is a 61 yo male hx of recurrent GI bleed, COPD, ESRD on dialysis, and HTN being treated for: 1. Recurrent GI Bleed recurrent GI bleed (Hx of duodenal ulcers/esophagitis/Gastritis) Hospitalization hx, "-GI Dr. Giles consulted. s/p EGD with cautery: Gastritis, Duodenitis , 2 AVM cauterized. Currently on IV Protonix drip, will switch to by mouth 40 mg twice a day -12/30. Transfuse 2 units this morning for hemoglobin of 5.8. Still 5.8 this afternoon. Transfuse another 2 units. Restart IV pantoprazole twice a day. Plan for EGD/colonoscopy tomorrow. -12/31. Hemoglobin improved. GI performed colonoscopy. -01/01. Hemoglobin transfused again. Some dilutional leukopenia. -01/02 drop 9s-->7.5. cont to monitor Q8h. -01/03. Another acute hemoglobin drop. Transfuse 3 units. Discussed with GI. Possible colonoscopy. Continue to monitor closely. Fibrinogen level acceptable. GI reports history of small bowel AVMs seen on double-balloon enteroscopy at outside hospital.Hematology consulted. - 01/04: patient has received a total of 13 units of PRBCs. His hb is stable this morning at 8.5. Patient is NPO and will have araujo endoscopy (showed blood in duodenum no active bleeding) this am. Further recommendations by GI - 01/05: Hemoglobin 5.9. 2 units ordered. Patient has been evaluated by hematology who believes there is no underlying bleeding diatheses. If GI bleed persists advised to give FFP. Recommend obtaining a hepatitis panel, platelet function, and ultrasound of the abdomen to evaluate the liver. Von Wilibrand panel pending. Recommended that the patient may benefit from being a tertiary care center. GI has consulted general surgery for persistent duodenal bleed. post transfusion Hb/hct pending. 2. COPD: stable w/o exacerbation. Duobens prn. 3. HTN: stable clonodine prn. 4. ESRD on dialysis: followed by nephro, [facility] MWF 5. Leukopenia: heme has been consulted. Continues to decrease during hospitalization. Patient completed rocephin 12/28-01/04, no signs of infection. 6. Hypocalcemia: Resolved. Discharge Planning d/c pending stabilization of Hb and further workup by GI. (Mary Alcantar MD R3) Problem Qualifiers (1) GI bleed: Qualified Code: K92.2 - Gastrointestinal hemorrhage, unspecified gastrointestinal hemorrhage type (2) COPD (chronic obstructive pulmonary disease): (3) Cirrhosis: Mary Alcantar MD R3 Jan 05, 2017 11:45 Tiffanie Tapia MD Jan 05, 2017 15:47
--- NOTE | 2017-01-05 11:54 | PD.ONC.PN ---
Subjective Subjective Remarks Afebrile overnight. Patient just back from panendoscopy. They found blood in the duodenum with no active bleed. GS has been consulted. Patient is without complaint and is resting comfortably. Objective Data Date Time Temp Pulse Resp B/P Pulse Ox O2 Delivery O2 Flow Rate FiO2 01/05/17 11:30 81 22 104/66 99 Nasal Cannula 2 01/05/17 11:15 67 22 95/56 99 Nasal Cannula 2 01/05/17 10:59 97.5 69 22 101/64 100 Nasal Cannula 2 01/05/17 08:07 98.2 81 16 108/66 100 01/05/17 08:06 98.2 81 16 108/66 100 01/05/17 07:39 98.2 82 16 97/59 96 01/05/17 04:47 97.8 79 20 112/72 94 01/05/17 00:12 98.2 86 20 108/72 96 01/04/17 20:49 98.4 88 22 100/68 92 01/04/17 20:00 88 01/04/17 16:00 98.4 88 16 101/72 97 01/04/17 12:50 97.6 73 16 113/65 98 01/05/17 01/05/17 01/05/17 07:00 15:00 23:00 Intake Total 0 ml 375 ml Balance 0 ml 375 ml Result Diagram: 01/05/17 0545 01/05/17 0545 Laboratory Results Laboratory Tests Test 01/04/17 01/05/17 01/05/17 17:15 05:45 06:54 Hemoglobin 8.0 GM/DL 5.9 GM/DL Hematocrit 23.0 % 17.6 % Haptoglobin 121 MG/DL Lactate Dehydrogenase 147 U/L Total Protein 3.5 GM/DL 3.3 GM/DL Immunoglobulin G Total 460 MG/DL Immunoglobulin A 163 MG/DL Immunoglobulin M 38 MG/DL Blood Type O POSITIVE O POSITIVE Direct Antiglobulin Test NEGATIVE (Sam) White Blood Count 1.6 TH/MM3 Red Blood Count 1.92 MIL/MM3 Mean Corpuscular Volume 91.6 FL Mean Corpuscular Hemoglobin 30.9 PG Mean Corpuscular Hemoglobin 33.7 % Concent Red Cell Distribution Width 15.3 % Platelet Count 111 TH/MM3 Mean Platelet Volume 8.9 FL Neutrophils (%) (Auto) 49.5 % Lymphocytes (%) (Auto) 31.9 % Monocytes (%) (Auto) 13.8 % Eosinophils (%) (Auto) 4.0 % Basophils (%) (Auto) 0.8 % Neutrophils # (Auto) 0.8 TH/MM3 Lymphocytes # (Auto) 0.5 TH/MM3 Monocytes # (Auto) 0.2 TH/MM3 Eosinophils # (Auto) 0.1 TH/MM3 Basophils # (Auto) 0.0 TH/MM3 CBC Comment AUTO DIFF Differential Total Cells 100 Counted Neutrophils % (Manual) 60 % Band Neutrophils % 1 % Lymphocytes % 28 % Monocytes % 11 % Neutrophils # (Manual) 1.0 TH/MM3 Differential Comment FINAL DIFF MANUAL Platelet Estimate LOW Platelet Morphology Comment NORMAL Sodium Level 139 MEQ/L Potassium Level 5.3 MEQ/L Chloride Level 100 MEQ/L Carbon Dioxide Level 28.2 MEQ/L Anion Gap 11 MEQ/L Blood Urea Nitrogen 92 MG/DL Creatinine 7.32 MG/DL Estimat Glomerular Filtration 8 ML/MIN Rate Random Glucose 82 MG/DL Calcium Level 7.1 MG/DL Protein Corrected Calcium 9.4 MG/DL Crossmatch Leukocyte-Reduced Red Blood Cells Blood Bank Comment Administered Medications Medications (Trade) Dose Ordered Sig/Shiela Route PRN Reason Start Time Stop Time Status Last Admin Dose Admin IV Flush (NS Flush) 2 ml BID IV FLUSH 12/28/16 09:00 01/05/17 08:15 Chlorhexidine Gluconate (Chlorhexidine 2% Cloth) Taper DAILY@04 TOP 12/28/16 04:00 12/24/17 03:59 01/03/17 04:00 Triamcinolone Acetonide (Aristocort 0.1% Cream) 1 applic Q12HR TOPICAL 12/28/16 09:00 01/04/17 20:35 Sevelamer Carbonate 2400 mg 2,400 mg TIDAC PO 12/29/16 12:00 01/03/17 18:28 Sodium Chloride (NS 1000 ml Inj) 1,000 ml @ 200 mls/hr Q5H PRN IV WITH DIALYSIS 12/30/16 16:32 12/30/16 17:11 Epoetin Rayo (Epogen Inj) 10,000 units UNSCH PRN IV WITH DIALYSIS 12/30/16 16:45 01/01/17 13:00 Gelatin (Gelfoam 12 Mm/7 Mm Top) 1 foam UNSCH PRN TOP SEE LABEL COMMENTS 12/30/16 16:45 12/30/16 17:10 Acetaminophen (Tylenol) 650 mg Q6HR PRN PO PAIN SCALE 1 TO 10 12/30/16 19:30 01/05/17 03:19 Pantoprazole Sodium (Protonix Inj) 40 mg Q12H IV PUSH 12/30/16 23:00 01/05/17 00:07 Ondansetron HCl 4 mg 4 mg Q6H PRN PO NAUSEA IF ABLE TO TAKE PO 12/31/16 16:45 12/31/16 17:25 Sodium Chloride (NS 250 ml Inj) 250 ml @ 15 mls/hr ONCE ONCE IV 01/05/17 07:00 01/05/17 23:39 01/05/17 07:47 Objective Remarks GENERAL: Middle aged male, sitting up in bed in nad. SKIN: Warm and dry. HEAD: Normocephalic. EYES: No injection or drainage. NECK: Supple, trachea midline. CARDIOVASCULAR: +S1/S2 RESPIRATORY: Breath sounds equal bilaterally. No accessory muscle use. GASTROINTESTINAL: Abdomen soft, non-tender, nondistended. EXTREMITIES: No cyanosis MUSCULOSKELETAL: Adequate muscle tone. NEUROLOGICAL: awake and alert, normal speech Assessment/Plan Problem List: (1) GI (gastrointestinal bleed) Status: Acute Plan: --has undergone embolization by IR. --s/p double balloon enteroscopy at [facility] in 11/2016 --h/o small bowel ulceration with AVMs in the third portion of the duodenum. has had four clips placed in the past. --has also undergone GDA embolization. --von Willebrand panel is pending. --platelet function assay. --chronic kidney disease can contribute to bleeding diathesis (2) Leukopenia Status: Acute Plan: --monitor --possibly due to bone marrow suppression from alcoholism --ANC>500K (3) Normocytic anemia due to blood loss Status: Acute Plan: --transfuse pRBC as needed (4) Thrombocytopenia Status: Acute Plan: --is mild. --LDH and haptoglobin WNL --hepatitic panel pending --abdominal u/s shows gallbladder thickening and ascites. end stage kidneys/ Assessment 61y/o male with with recurrent GI bleeds and severe anemia. Hematology consulted to evaluate for underlying bleeding diastases. history of alcohol abuse, end-stage renal disease, recurrent GI bleeding requiring multiple endoscopic evaluations. on hemodialysis Friday, Friday and Friday. Bipolar disorder. Congestive heart failure. COPD. Epilepsy. Gout. Plan 1. agree with pRBC transfusion 2. monitor CBC, coags 3. await platelet function assay and VWF panel. Attending Statement The exam, history, and the medical decision-making described in the above note were completed with the assistance of the mid-level provider. I reviewed and agree with the findings presented. I attest that I had a [id number] encounter with the patient on the same day, and personally performed and documented my assessment and findings in the medical record. Active GI bleed likely from duodenal AVM's No evidence of clotting disorder thus far. Transfuse an additional unit of pRBC Anemia w/u pending Von Willebrand panel pending. i don't think this is the reason for his bleeding. Coags are normal d/w rn Problem Qualifiers (1) GI (gastrointestinal bleed): Qualified Code: K92.2 - Gastrointestinal hemorrhage, unspecified gastrointestinal hemorrhage type Ngozi Sy Jan 05, 2017 11:54 Keshav Naik MD Jan 05, 2017 23:10
--- NOTE | 2017-01-05 14:59 | HHI.NPPN ---
Subjective General Problems: Anemia, Edema Renal Failure: Chronic Additional Remarks Hemoglobin dropped to 5 - transfused and had endoscopy earlier today. No acute bleeding today. Review of Systems Gastrointestinal Gastrointestinal: Blood/Tarry Stools Objective Data Data 01/04/17 01/05/17 19:00 07:00 Intake Total 360 ml 360 ml Balance 360 ml 360 ml Intake Oral 360 ml 360 ml # Voids 2 6 # Bowel Movements 4 Vital Signs Date Time Temp Pulse Resp B/P Pulse Ox O2 Delivery O2 Flow Rate FiO2 01/05/17 12:00 97.3 76 16 102/68 97 01/05/17 11:40 97.5 81 22 104/66 99 Nasal Cannula 2 01/05/17 11:30 81 22 104/66 99 Nasal Cannula 2 01/05/17 11:15 67 22 95/56 99 Nasal Cannula 2 01/05/17 10:59 97.5 69 22 101/64 100 Nasal Cannula 2 01/05/17 08:07 98.2 81 16 108/66 100 01/05/17 08:06 98.2 81 16 108/66 100 01/05/17 07:39 98.2 82 16 97/59 96 01/05/17 04:47 97.8 79 20 112/72 94 01/05/17 00:12 98.2 86 20 108/72 96 01/04/17 20:49 98.4 88 22 100/68 92 01/04/17 20:00 88 01/04/17 16:00 98.4 88 16 101/72 97 -: 01/05/17 0545 01/05/17 0545 Physical Exam General Appearance: Well Developed, No Acute Distress, Comfortable, Pale, Malnourished Throat Throat Exam: Oral Mucosa [place] & Moist Pulmonary Resp Exam: Clear Bilaterally, Breath Sounds Equal, No Distress Cardiology CV Exam: Regular, Normal Sinus Rhythm Gastrointestinal/Abdomen GI Exam: Soft, Non-Tender, Bowel Sounds Present Musculoskeletal MS Exam: Joints Intact, Normal Tone Integumentary Skin Exam: Warm, Dry Extremeties Extremities Exam: Pedal Pulses Palpable, Trace Edema Neurologic Neuro Exam: Oriented, Speech Clear, Moving All Extremities Assessment/Plan Discussed Condition With: Patient Assessment Summary: Anemia of CKD Problem List: (1) ESRD (end stage renal disease) on dialysis Plan: Continue M-W- dialysis; Tolerated HD Friday, plan next HD Friday has a functioning fistula for dialysis no IVF required ; avoid gadolinium in ESRD pts high protein diet (2) Anemia Plan: Hemoglobin dropped to 5 today - given transfusion. Endoscopy today - suspicion for upper small intestine bleeding. Follow with GI, surgery (3) GI bleed Plan: Seen with GI, Surgery Upper endoscopy earlier today - follow management with GI, Surgery Suspected upper small intestine etiology. (4) Hypertension, benign Plan: continue to monitor (5) Cirrhosis Plan: gi following ETOH cessation advised Plan Problem Qualifiers (1) GI bleed: Qualified Code: K92.2 - Gastrointestinal hemorrhage, unspecified gastrointestinal hemorrhage type (2) Cirrhosis: Deyvi Schuster MD Jan 05, 2017 14:59
[2017-01-05 15:01] LABS: REVIEW FLAG FINAL
[2017-01-05] MEDS: OCTREOTIDE INJ 100 MCG/ML VIAL IV PUSH SCH ×2 (16:43→23:12)
[2017-01-05 19:16] LABS: HEMATOCRIT 21.3 % (39.0-51.0); REVIEW FLAG FINAL
--- NOTE | 2017-01-05 20:18 | MB ---
cc: TRISTIN PALM M.D., HASSAN M.D. DATE OF CONSULTATION: 01/05/2017. REASON FOR CONSULTATION: Persistent GI bleeding with anemia requiring persistent transfusions. HISTORY OF PRESENT ILLNESS: The patient is a 61-year-old male known to me previously who had GI bleeding on his last hospital stay. This was controlled endoscopically and no further bleeding episodes were noted. He returns to the emergency department with profound anemia with a hemoglobin of 4.5. The patient received a 2 units of packed red cells and has been stabilized. The patient has been at [facility] for a double balloon enteroscopy on December 12, 2016. Enteroscopy on 12/10 showed a small ulceration, AV malformation in the third portion of the duodenum and had four clips placed. The patient has had prior gastroduodenal artery embolization. The patient underwent EGD enteroscopy with cautery on 12/28/2016. Some erythema in the duodenal bulb and descending duodenum was noted but otherwise within normal limits. In the jejunum prior clips were noted and two AVMs were cauterized. The patient continues to have problems requiring repetitive transfusions, most recently today the patient had a hemoglobin of 5.9. He has undergone transfusion with a total of 17 units of blood transfused in the ensuing nine days. Dr. Salinas has asked me to see the patient due to this persistent transfusion requirement. ALLERGIES: MULTIPLE ALLERGIES ARE LISTED AND ARE PRESENT IN THE CHART INCLUDIN. CHANTIX. 2. HALDOL. 3. THORAZINE. 4. WELLBUTRIN. 5. INVEGA. 6. LITHIUM. 7. RISPERDAL. 8. VALPROIC ACID. PAST MEDICAL HISTORY: 1. Hypertension. 2. End-stage renal disease on hemodialysis. 3. Ascites of unknown etiology but likely secondary to liver cirrhosis with a history of GI bleeding and angiodysplasia with prior interventional radiology embolization of the gastroduodenal artery. 4. Enteroscopy showed small ulcerations and AVMs in the third portion of the duodenum. 5. COPD. 6. History of alcohol abuse. 7. Protein-calorie malnutrition. PAST SURGICAL HISTORY: 1. Hernia repair. 2. AV fistula placement. 3. Dialysis catheter placement. 4. Neck tumor removal. 5. EGD and colonoscopy. 6. Embolization of AVMs. MEDICATIONS: 1. Albuterol nebulizers. 2. Albumin with dialysis. 3. Chlorhexidine scrub for decolonization. 4. Erythropoietin alpha 10,000 units with dialysis. 5. Zofran PRN. 6. Pantoprazole 40 milligrams IV q. 12 hours. 7. Sevelamer 2400 milligrams p.o. three times a day. 8. Triamcinolone cream applied topically q. 12 hours. PHYSICAL EXAMINATION: GENERAL: The physical exam reveals a thin male in no acute distress. He is alert and cooperative. VITAL SIGNS: Blood pressure 102/68, pulse 76, respirations 16, temperature 97.3, 97% saturation on two liters nasal cannula. HEAD, EYES, EARS, NOSE, THROAT: The sclerae are nonicteric. CHEST: Clear to auscultation. CARDIAC: Regular rate and rhythm. ABDOMEN: Abdomen soft and nontender. There are no hernias noted. Pulses are present. NEUROLOGIC: Neurologic exam is nonfocal. LABORATORY VALUES: Most recent hemoglobin and hematocrit of 7.1 and 21.0. Chemistries demonstrate potassium of 5.3, BUN and creatinine of 92 and 7.32. ASSESSMENT: Persistent GI hemorrhage with likely AV malformations versus varices secondary to portal hypertension. PLAN: I have discussed the patient's management with Dr. Salinas and agree that he has required substantial transfusion during this hospitalization. I have suggested that we try Sandostatin to see whether the AV malformations would be able to be shrunk down and to control the bleeding. Failing this, I have discussed with the patient the possibility of removing up to one third of the small intestine to try to control the bleeding. He is not desirous of this and feels that he would decline this surgery. I have indicated in this may be his only option to stop the bleeding and to stop his transfusion requirements, although this may not stop it and he may continue to deteriorate and require further transfusions. He vocalizes understanding of this, and failing medical therapy, he may decline surgical therapy as well. He realizes this may end his life, but he reports that he would like to "be in as much of one piece as possible." We will follow with you. MD LIZA Gonzales/MANUEL /4:20 PM /7:03 PM MARIA DEL CARMEN
[2017-01-05] MEDS: guaiFENesin E.R. 600 MG TAB PO SCH (23:57)
[2017-01-06] VITALS (15 sets, daily range): BP systolic 99–118; BP diastolic 58–71; PULSE 71–86; RESP 16–18; TEMP 96.3–98.4; O2SAT 95–99
[2017-01-06] MEDS: CHLORHEXIDINE GLUCONATE 2 % 1 PACK (2 CLOTHS) TOP SCH (03:33)
[2017-01-06] MEDS: BENZONATATE 100 MG CAP PO PRN ×2 (05:55→16:25)
[2017-01-06] MEDS: ONDANSETRON ODT 4 MG TAB PO PRN (06:26)
[2017-01-06] MEDS: SEVELAMER CARBONATE 800 MG TAB PO SCH ×3 (08:00→16:21)
[2017-01-06] MEDS: EPOETIN ALFA 10,000 UNITS/ML VIAL IV PRN (08:45)
[2017-01-06] MEDS: GELATIN 12 MM/7 MM FOAM TOP PRN ×2 (08:45→11:00)
[2017-01-06] MEDS: ALBUMIN HUMAN 25% 25 GM/100 ML BAGP IV PRN (08:45)
--- NOTE | 2017-01-06 08:52 | HHI.NPPN ---
Subjective General Problems: Anemia, Edema Renal Failure: Chronic Interval History Seen during dialysis. He had active GI bleeding with clots during treatment. Receiving blood transfusion. (Sharron Lebron) Review of Systems Gastrointestinal Gastrointestinal: Blood/Tarry Stools (Sharron Lebron) Objective Data Data 01/05/17 01/06/17 19:00 07:00 Intake Total 1945 ml 960 ml Output Total 100 ml Balance 1845 ml 960 ml Intake Oral 1020 ml 960 ml Packed Cells 800 ml Other 125 ml Stool Total 100 ml # Voids 2 2 # Bowel Movements 2 1 Vital Signs Date Time Temp Pulse Resp B/P Pulse Ox O2 Delivery O2 Flow Rate FiO2 01/06/17 08:00 96.9 75 18 103/69 98 01/06/17 06:15 97.4 74 18 105/65 97 01/06/17 06:03 97.7 71 18 113/65 97 01/06/17 04:00 96.3 74 17 110/62 97 01/06/17 03:29 97.8 74 17 110/62 97 01/06/17 01:00 97.2 71 18 115/61 97 01/06/17 00:45 97.1 76 17 112/71 99 01/06/17 00:00 97.1 76 17 112/71 99 01/05/17 20:00 97.7 75 17 100/63 96 01/05/17 20:00 69 01/05/17 16:00 98.2 80 16 140/65 97 01/05/17 12:00 97.3 76 16 102/68 97 01/05/17 11:40 97.5 81 22 104/66 99 Nasal Cannula 2 01/05/17 11:30 81 22 104/66 99 Nasal Cannula 2 01/05/17 11:15 67 22 95/56 99 Nasal Cannula 2 01/05/17 10:59 97.5 69 22 101/64 100 Nasal Cannula 2 (Sharron Lebron) -: 01/05/17 1906 01/05/17 0545 Physical Exam General Appearance: Well Developed, No Acute Distress, Comfortable, Pale, Malnourished (Sharron Lebron) Throat Throat Exam: Oral Mucosa [place] & Moist (Sharron Lebron) Pulmonary Resp Exam: Clear Bilaterally, Breath Sounds Equal, No Distress (Sharron Lebron) Cardiology CV Exam: Regular, Normal Sinus Rhythm (Sharron Lebron) Gastrointestinal/Abdomen GI Exam: Soft, Non-Tender, Bowel Sounds Present (Sharron Lebron) Musculoskeletal MS Exam: Joints Intact, Normal Tone (Sharron Lebron) Integumentary Skin Exam: Warm, Dry (Sharron Lebron) Extremeties Extremities Exam: Pedal Pulses Palpable, Trace Edema (Sharron Lebron) Neurologic Neuro Exam: Oriented, Speech Clear, Moving All Extremities (Sharron Lebron) Assessment/Plan Discussed Condition With: Patient Assessment Summary: Anemia of CKD, Hypertension Problem List: (1) ESRD (end stage renal disease) on dialysis Plan: Continue M-W-F dialysis; seen during treatment today on a 3K, 350 BFR, goal 3L has a functioning fistula for dialysis no acute renal concerns no IVF required ; avoid gadolinium in ESRD pts high protein diet (2) Anemia Plan: severely anemic despite multiple transfusions. 20 units give since admission serial Hemoglobin testing, transfuse as needed goal Hb >10 epogen with dialysis (3) GI bleed Plan: surgery has evaluated, recommend surgical removal of bleeding area of small intestines if current therapy fails octreotide has been started GI also following transfused with PRBC, also given 2 units FFP (4) Hypertension, benign Plan: continue to monitor (5) Cirrhosis Plan: gi following ETOH cessation advised (6) Metabolic bone disease Plan: on Renvela, obtain intermittent phos level Plan (Sharron Lebron) Plan patient was seen and examined. Agree with above assessment and plan. (Rubén Browne MD) Problem Qualifiers (1) GI bleed: Qualified Code: K92.2 - Gastrointestinal hemorrhage, unspecified gastrointestinal hemorrhage type (2) Cirrhosis: Sharron Lebron Jan 06, 2017 08:52 Rubén Browne MD Jan 06, 2017 09:33
[2017-01-06] MEDS: SODIUM CHLORIDE 0.9% FLUSH 5 ML FLUSH IV FLUSH SCH ×2 (12:13→21:10)
[2017-01-06] MEDS: OCTREOTIDE INJ 100 MCG/ML VIAL IV PUSH SCH ×2 (12:13→16:20)
[2017-01-06] MEDS: guaiFENesin E.R. 600 MG TAB PO SCH ×2 (12:13→21:09)
--- NOTE | 2017-01-06 12:13 | PD.ONC.PN ---
Subjective Subjective Remarks Afebrile overnight. Patient just finished dialysis. He tells me he wants to go home. Tolerated transfusions overnight without adverse event. Tells me he is not bleeding any more. Objective Data Date Time Temp Pulse Resp B/P Pulse Ox O2 Delivery O2 Flow Rate FiO2 01/06/17 08:00 96.9 75 18 103/69 98 01/06/17 06:15 97.4 74 18 105/65 97 01/06/17 06:03 97.7 71 18 113/65 97 01/06/17 04:00 96.3 74 17 110/62 97 01/06/17 03:29 97.8 74 17 110/62 97 01/06/17 01:00 97.2 71 18 115/61 97 01/06/17 00:45 97.1 76 17 112/71 99 01/06/17 00:00 97.1 76 17 112/71 99 01/05/17 20:00 97.7 75 17 100/63 96 01/05/17 20:00 69 01/05/17 16:00 98.2 80 16 140/65 97 01/06/17 01/06/17 01/06/17 07:00 15:00 23:00 Intake Total 720 ml Output Total 2100 ml Balance 720 ml -2100 ml Result Diagram: 01/05/17 1906 01/05/17 0545 Laboratory Results Laboratory Tests Test 01/05/17 01/05/17 01/05/17 14:20 19:06 23:03 Hemoglobin 7.1 GM/DL 7.1 GM/DL Hematocrit 21.0 % 21.3 % Platelet Function Scrn 118 SECONDS (Epinephrine Blood Type O POSITIVE Crossmatch Leukocyte-Reduced Red Blood Cells Blood Bank Comment Administered Medications Medications (Trade) Dose Ordered Sig/Shiela Route PRN Reason Start Time Stop Time Status Last Admin Dose Admin IV Flush (NS Flush) 2 ml BID IV FLUSH 12/28/16 09:00 01/05/17 20:48 Chlorhexidine Gluconate (Chlorhexidine 2% Cloth) Taper DAILY@04 TOP 12/28/16 04:00 12/24/17 03:59 01/03/17 04:00 Triamcinolone Acetonide (Aristocort 0.1% Cream) 1 applic Q12HR TOPICAL 12/28/16 09:00 01/05/17 20:48 Sevelamer Carbonate 2400 mg 2,400 mg TIDAC PO 12/29/16 12:00 01/05/17 16:43 Sodium Chloride (NS 1000 ml Inj) 1,000 ml @ 200 mls/hr Q5H PRN IV WITH DIALYSIS 12/30/16 16:32 12/30/16 17:11 Albumin Human (Albumin 25% Inj) 25 gm UNSCH PRN IV WITH DIALYSIS 12/30/16 16:45 01/06/17 08:45 Diphenhydramine HCl (Benadryl) 25 mg UNSCH PRN PO for hives/itching/anaphylaxis 12/30/16 16:45 01/05/17 23:57 Epoetin Rayo (Epogen Inj) 10,000 units UNSCH PRN IV WITH DIALYSIS 12/30/16 16:45 01/06/17 08:45 Gelatin (Gelfoam 12 Mm/7 Mm Top) 1 foam UNSCH PRN TOP SEE LABEL COMMENTS 12/30/16 16:45 01/06/17 08:45 Acetaminophen (Tylenol) 650 mg Q6HR PRN PO PAIN SCALE 1 TO 10 12/30/16 19:30 01/05/17 23:57 Pantoprazole Sodium (Protonix Inj) 40 mg Q12H IV PUSH 12/30/16 23:00 01/05/17 23:12 Ondansetron HCl (Zofran Odt) 4 mg Q6H PRN PO NAUSEA IF ABLE TO TAKE PO 12/31/16 16:45 01/06/17 06:26 Octreotide Acetate (SandoSTATIN INJ) 100 mcg Q8H IV PUSH 01/05/17 16:00 01/05/17 23:12 Guaifenesin (Mucinex Er) 600 mg BID PO 01/05/17 23:30 01/05/17 23:57 Benzonatate (Tessalon) 200 mg TID PRN PO cough interfering with rest 01/06/17 05:45 01/06/17 05:55 Objective Remarks GENERAL: Middle aged male, lying on stretcher in dialysis. SKIN: Warm and dry. HEAD: Normocephalic. EYES: No injection or drainage. NECK: Supple, trachea midline. CARDIOVASCULAR: Regular rate and rhythm RESPIRATORY: Breath sounds equal bilaterally. No accessory muscle use. GASTROINTESTINAL: Abdomen soft, non-tender, nondistended. EXTREMITIES: No cyanosis NEUROLOGICAL: awake and alert, normal speech. moving all extremities. Assessment/Plan Problem List: (1) GI (gastrointestinal bleed) Status: Acute Plan: --has undergone embolization by IR. --s/p double balloon enteroscopy at [facility] in 11/2016 --h/o small bowel ulceration with AVMs in the third portion of the duodenum. has had four clips placed in the past. --has also undergone GDA embolization. --von Willebrand panel is pending. --platelet function assay shows normal platelet function --chronic kidney disease can contribute to bleeding diathesis (2) Leukopenia Status: Acute Plan: --monitor --possibly due to bone marrow suppression from alcoholism --ANC>500K (3) Normocytic anemia due to blood loss Status: Acute Plan: --transfuse pRBC as needed (4) Thrombocytopenia Status: Acute Plan: --is mild. --LDH and haptoglobin WNL --hepatitic panel pending --abdominal u/s shows gallbladder thickening and ascites. end stage kidneys/ Assessment 61y/o male with with recurrent GI bleeds and severe anemia. Hematology consulted to evaluate for underlying bleeding diastases. history of alcohol abuse, end-stage renal disease, recurrent GI bleeding requiring multiple endoscopic evaluations. on hemodialysis Friday, Friday and Friday. Bipolar disorder. Congestive heart failure. COPD. Epilepsy. Gout. Plan 1. s/p 2 units FFP and 1 unit pRBC overnight, CBC today shows persistent anemia 2. continue supportive care 3. monitor CBC Attending Statement had dark stool today. Hg dropped to 5.4 PRBC Repeat EGD today. NO evidence of coagulopathy will follow The exam, history, and the medical decision-making described in the above note were completed with the assistance of the mid-level provider. I reviewed and agree with the findings presented. I attest that I had a [id number] encounter with the patient on the same day, and personally performed and documented my assessment and findings in the medical record.. Problem Qualifiers (1) GI (gastrointestinal bleed): Qualified Code: K92.2 - Gastrointestinal hemorrhage, unspecified gastrointestinal hemorrhage type Ngozi Sy Jan 06, 2017 12:13 Zohaib Lenz MD Jan 06, 2017 21:56
[2017-01-06] MEDS: FLUTICASONE PROPIONATE 50 MCG/ACT 16 GM NASAL SPRAY EACH NARE SCH (12:14)
[2017-01-06] MEDS: PANTOPRAZOLE SODIUM 40 MG VIAL IV PUSH SCH (12:14)
[2017-01-06] MEDS: TRIAMCINOLONE ACETONIDE 0.1% CREAM 15 GM TOPICAL SCH ×2 (12:14→21:10)
--- NOTE | 2017-01-06 13:26 | HHI.PR ---
Subjective Subjective Notes Resting in bed States he would like to go home today Coughing Objective Vitals/I&O Vital Signs Date Time Temp Pulse Resp B/P Pulse Ox O2 Delivery O2 Flow Rate FiO2 01/06/17 08:00 96.9 75 18 103/69 98 01/05/17 11:40 Nasal Cannula 2 01/02/17 10:17 21 Labs Laboratory Tests Test 01/05/17 01/05/17 01/05/17 14:20 19:06 23:03 Hemoglobin 7.1 7.1 Hematocrit 21.0 21.3 Platelet Function Scrn 118 (Epinephrine Blood Type O POSITIVE Crossmatch Leukocyte-Reduced Red Blood Cells Blood Bank Comment Cardiovascular: Regular Lungs: Clear Abdomen: Non-distended, Non-tender Extremities: No edema A/P Assessment and Plan 61 year old male with persistent GI bleeding; ESRD on HD -No reporting bleeding overnight or this morning -Follow up afternoon Hg/Hct -Advance diet as tolerated -Continue non operative treatment Attending Note - Dr. Schulz Abdomen benign; hemodynamically stable Discussed with Dr. Salinas; with portal hypertension, he will continue to make AVM's and surgical resection will only work temporarily Recommend consideration for TIPS procedure, as this may remove venous hypertension and alleviate continued formation of these. The exam, history, and the medical decision-making described in the above note were completed with the assistance of the mid-level provider. I reviewed and agree with the findings presented. I attest that I had a [id number] encounter with the patient on the same day, and personally performed and documented my assessment and findings in the medical record. Ainsley Fletcher Jan 06, 2017 13:26 Kyle Schulz MD Jan 06, 2017 21:27
[2017-01-06 13:33] LABS: AUTOMATED NEUTROPHIL # 0.8 TH/MM3 (1.8-7.7); BASOPHIL % 0.6 % (0.0-2.0); EOSINOPHIL # 0.1 TH/MM3 (0-0.4); EOSINOPHIL % 6.5 % (0.0-4.0); LYMPH % 30.3 % (9.0-44.0); LYMPHOCYTE # 0.4 TH/MM3 (1.0-4.8); MEAN CELL VOLUME 89.5 FL (80.0-100.0); MEAN CORPUSCULAR HEMOGLOBIN 30.6 PG (27.0-34.0); MEAN CORPUSCULAR HGB CONC 34.2 % (32.0-36.0); MONO % 9.9 % (0.0-8.0); NEUT % 52.7 % (16.0-70.0); PLATELET COUNT 125 TH/MM3 (150-450); RED BLOOD COUNT 1.74 MIL/MM3 (4.50-5.90); RED CELL DISTRIBUTION WIDTH 15.9 % (11.6-17.2); WHITE BLOOD COUNT 1.4 TH/MM3 (4.0-11.0)
[2017-01-06 13:36] LABS: HEMO FLAGS AUTO DIFF
[2017-01-06 13:39] LABS: HEMATOCRIT 15.6 % (39.0-51.0)
[2017-01-06 14:04] LABS: BICARBONATE 31.6 MEQ/L (21.0-32.0); POTASSIUM 4.1 MEQ/L (3.5-5.1)
[2017-01-06 14:18] LABS: CALCIUM-PROTEIN CORRECTED 9.2 MG/DL (8.5-10.1)
[2017-01-06 14:19] LABS: EOSINOPHILS 1 % (0-4); POLYS (SEG NEUTROPHILS) 73 % (16-70); WBC DIFF SAMPLE 100
[2017-01-06 14:21] LABS: PLATELET ESTIMATE SMEAR LOW (NORMAL); PLATELET MORPHOLOGY NORMAL (NORMAL)
[2017-01-06 14:22] LABS: SCAN/DIFF FINAL DIFF MANUAL
[2017-01-06 14:58] LABS: RETIC % 1.6 % (0.4-3.0)
[2017-01-06 15:04] LABS: REVIEW FLAG FINAL
--- NOTE | 2017-01-06 15:53 | HHI.GIFU ---
Subjective Remarks /Denies abdominal pain, had 3 large dark stools today with blood, H&H down to 5.3/15.6 (Kat Kat) Objective Vitals I&O Vital Signs Date Time Temp Pulse Resp B/P Pulse Ox O2 Delivery O2 Flow Rate FiO2 01/06/17 08:00 96.9 75 18 103/69 98 01/06/17 06:15 97.4 74 18 105/65 97 01/06/17 06:03 97.7 71 18 113/65 97 01/06/17 04:00 96.3 74 17 110/62 97 01/06/17 03:29 97.8 74 17 110/62 97 01/06/17 01:00 97.2 71 18 115/61 97 01/06/17 00:45 97.1 76 17 112/71 99 01/06/17 00:00 97.1 76 17 112/71 99 01/05/17 20:00 97.7 75 17 100/63 96 01/05/17 20:00 69 01/05/17 16:00 98.2 80 16 140/65 97 I/O 01/05/17 01/05/17 01/05/17 01/06/17 01/06/17 01/06/17 07:00 15:00 23:00 07:00 15:00 23:00 Intake Total 0 ml 1945 ml 240 ml 720 ml Output Total 100 ml 2100 ml Balance 0 ml 1845 ml 240 ml 720 ml -2100 ml Intake Oral 0 ml 1020 ml 240 ml 720 ml Packed Cells 800 ml Other 125 ml Stool Total 100 ml 100 ml Hemodialysis 2000 ml # Voids 3 2 2 1 # Bowel Movements 2 2 1 Laboratory Laboratory Tests Test 01/05/17 01/05/17 01/06/17 01/06/17 19:06 23:03 12:30 14:24 Hemoglobin 7.1 5.3 Hematocrit 21.3 15.6 Blood Type O POSITIVE O POSITIVE Crossmatch Leukocyte-Reduced Leukocyte-Reduced Red Blood Red Blood Cells Cells Blood Bank Comment White Blood Count 1.4 Red Blood Count 1.74 Mean Corpuscular Volume 89.5 Mean Corpuscular Hemoglobin 30.6 Mean Corpuscular Hemoglobin 34.2 Concent Red Cell Distribution Width 15.9 Platelet Count 125 Mean Platelet Volume 8.8 Neutrophils (%) (Auto) 52.7 Lymphocytes (%) (Auto) 30.3 Monocytes (%) (Auto) 9.9 Eosinophils (%) (Auto) 6.5 Basophils (%) (Auto) 0.6 Neutrophils # (Auto) 0.8 Lymphocytes # (Auto) 0.4 Monocytes # (Auto) 0.1 Eosinophils # (Auto) 0.1 Basophils # (Auto) 0.0 CBC Comment AUTO DIFF Differential Total Cells 100 Counted Neutrophils % (Manual) 73 Lymphocytes % 19 Monocytes % 7 Eosinophils % 1 Neutrophils # (Manual) 1.0 Differential Comment FINAL DIFF MANUAL Platelet Estimate LOW Platelet Morphology Comment NORMAL Reticulocyte Count 1.6 Absolute Reticulocyte Count 26.7 Sodium Level 144 Potassium Level 4.1 Chloride Level 104 Carbon Dioxide Level 31.6 Anion Gap 8 Blood Urea Nitrogen 46 Creatinine 4.53 Estimat Glomerular Filtration 13 Rate Random Glucose 124 Calcium Level 7.3 Protein Corrected Calcium 9.2 Total Protein 3.9 Vitamin B12 Level 604 Folate 7.8 Antibody Screen NEGATIVE Imaging Last Impressions GI Bleed Scan Nuclear Medicine 01/02/17 0000 Signed Impressions: Service Date/Time: December 13:59 - CONCLUSION: No evidence of active GI bleed. Warren Max MD Abdomen Ultrasound 12/28/16 0000 Signed Impressions: Service Date/Time: Wednesday, December 28, 2016 18:52 - CONCLUSION: Pronounced gallbladder wall thickening without definite stones. Ascites. End stage kidneys Baudilio Head MD Chest X-Ray 12/27/16 0000 Signed Impressions: Service Date/Time: Tuesday, December 27, 2016 21:36 - CONCLUSION: No acute disease. Warren Max MD Physical Exam HEENT: Normocephalic; atraumatic; no jaundice. CHEST: CTA CARDIAC: RRR ABDOMEN: Soft, nondistended, nontender; no hepatosplenomegaly; bowel sounds are present in all four quadrants. EXTREMITIES: No clubbing, cyanosis, or edema. SKIN: Multiple ecchymotic areas [employer] OPERATOR: No focal deficits; alert and oriented times three. (Kat Kat) Assessment and Plan Plan ASSESSMENT: - Recurrent GIB. Pt has had multiple hospitalizations with extensive workup with prior EGD, Enteroscopy, Colonoscopy, and GDA embolization for bleeding duodenal ulcer in the past. He last had an enteroscopy at this facility on (12/10/16)---> small ulceration/avm third portion of the duodenum, s/p 4 clips, no active bleeding, fresh blood in stomach, duodenum, washed, no further bleeding seen. Angiogram (12/10/16)----> 1. The patient has had prior GDA embolization. This prevents antegrade evaluation and access of the feeder vessels to the third portion of the duodenum. 2. I did attempt to identify collateral vessels through the pancreatic or duodenal arcade off of the SMA but none were identified. No findings of active hemorrhage. Pt has not stayed out of the hospital long enough to have capsule endoscopy. During last hospitalization, he was transferred to tertiary for double balloon enteroscopy at [facility] for recurrent bleeding. We do not have the records for this, but the patient reports that he was hospitalized from 12/12- 12/21 and that he had EGD/Enteroscopy/Colonoscopy and reports that he was found to have bleeding on the wall of his colon. He reports that he was discharged on 12/21 and has continued to have dark tarry stools since that time. He was sent to hospital for severe anemia noted at outpatient HD. HH of 4.5/13.0 on admission. S/P EGD with cauterization of AVMs (12/28/16)---- > Hiatal hernia, Gastritis, Duodenitis, Jejunal AVMs- S/P cauterization. Pt has had ongoing rectal bleeding- 4 episodes overnight, 3 so far today. Still no records from [facility], d/w nurse and she is resending release and request. S/P Rpt Enteroscopy and Colonoscopy ()---> Hiatal hernia, Nodular duodenitis, Poor colonic prep. Hgb this morning was 5.8/17.3 this morning. He received 2 units of blood in HD today. Pt reports no further bleeding since yesterday. Bleeding scan yesterday was negative. Will feed patient and plan for rpt. enteroscopy in am. Will need capsule endoscopy SHARLENE once discharged. - Anemia, acute on chronic. S/P 16 units PRBC. - ESRD on HD M/W/F - HTN, COPD per primary 01/04/17- reports having one dark bloody stool this am, none since, no abdomen pain, no nausea, no vomiting. He was scheduled to have enteroscopy today, however, too many traumas arriving in the ED, and this might be pushed to tomorrow, he received 5 units yesterday for a total of 17 units. hgb 8.2 01/06/17-Had EGD on 01/05/17 superficial duodenal ulceration -Still having large dark stools with bright red blood at least 3 today, H&H is 5.3/15.6 ,D/W Dr. Salinas will do colon/EGD in am, discussed with patient who is agreeable. PLAN: - Clear liquids, then NPO after midnight - Plan colon/EGD in am - Serial HH - Transfusions per primary - Protonix 40mg IV BID - Avoid anticoagulation - Supportive care - Capsule endoscopy as outpatient SHARLENE- will call to arrange in office once we know he will be discharged. - Consider tertiary evaluation - Further recommendations to follow based on results of above - Pt seen and examined by Dr. Salinas and myself and this note is written on his behalf. (Kat Kat) Physician Comments Seen and examined with VIRIDIANA, continues to bleed. Not too many options. Currently on octreotide. Transfuse as needed. Repeat egd/ colonoscopy tomorrow. Discussed with DR. Schulz. (Osmel Salinas MD) Kat Kat Jan 06, 2017 15:53 Osmel Salinas MD Jan 06, 2017 19:03
--- NOTE | 2017-01-06 16:48 | HHI.PR ---
Subjective Remarks H and H drop staff reported stools with bright red blood/ small clumps no abdominal pain, nausea or vomiting, po 100% Objective Vitals Vital Signs Date Time Temp Pulse Resp B/P Pulse Ox O2 Delivery O2 Flow Rate FiO2 01/06/17 16:22 96.8 78 16 99/58 98 01/06/17 16:04 96.8 75 16 118/58 98 01/06/17 16:00 96.8 75 16 118/58 98 01/06/17 08:00 96.9 75 18 103/69 98 01/06/17 06:15 97.4 74 18 105/65 97 01/06/17 06:03 97.7 71 18 113/65 97 01/06/17 04:00 96.3 74 17 110/62 97 01/06/17 03:29 97.8 74 17 110/62 97 01/06/17 01:00 97.2 71 18 115/61 97 01/06/17 00:45 97.1 76 17 112/71 99 01/06/17 00:00 97.1 76 17 112/71 99 01/05/17 20:00 97.7 75 17 100/63 96 01/05/17 20:00 69 I/O 01/05/17 01/05/17 01/05/17 01/06/17 01/06/17 01/06/17 07:00 15:00 23:00 07:00 15:00 23:00 Intake Total 0 ml 1945 ml 240 ml 720 ml 480 ml Output Total 100 ml 2100 ml Balance 0 ml 1845 ml 240 ml 720 ml -1620 ml Intake Oral 0 ml 1020 ml 240 ml 720 ml 480 ml Packed Cells 800 ml Other 125 ml Stool Total 100 ml 100 ml Hemodialysis 2000 ml # Voids 3 2 2 2 # Bowel Movements 2 2 1 2 Result Diagram: 01/06/17 1230 01/06/17 1230 Imaging Last Impressions GI Bleed Scan Nuclear Medicine 01/02/17 0000 Signed Impressions: Service Date/Time: December 13:59 - CONCLUSION: No evidence of active GI bleed. Warren Max MD Abdomen Ultrasound 12/28/16 0000 Signed Impressions: Service Date/Time: Wednesday, December 28, 2016 18:52 - CONCLUSION: Pronounced gallbladder wall thickening without definite stones. Ascites. End stage kidneys Baudilio Head MD Chest X-Ray 12/27/16 0000 Signed Impressions: Service Date/Time: Tuesday, December 27, 2016 21:36 - CONCLUSION: No acute disease. Warren Max MD Objective Remarks awake and alert, oriented x 3 anicteric lungs clear regular rhythm abdomen soft, nontender,good bowel sounds extremities no edema, LUE- AVF fistula- + bruit neuro exam non focal A/P Problem List: (1) GI bleed ICD Code: K92.2 Status: Acute (2) Hypotension ICD Code: I95.9 Status: Acute (3) Anemia requiring transfusions ICD Code: D64.9 Status: Acute (4) ESRD (end stage renal disease) on dialysis ICD Code: N18.6 Status: Chronic (5) Hypertension, benign ICD Code: I10 Status: Chronic (6) Alcohol abuse ICD Code: F10.10 Status: Chronic (7) COPD (chronic obstructive pulmonary disease) ICD Code: J44.9 Status: Chronic Assessment and Plan This is a 61 yo male hx of recurrent GI bleed, COPD, ESRD on dialysis, and HTN being treated for: 1. Recurrent GI Bleed Persistent Anemia recurrent GI bleed (Hx of duodenal ulcers/esophagitis/Gastritis) Hospitalization hx, "-GI Dr. Giles consulted. s/p EGD with cautery: Gastritis, Duodenitis , 2 AVM cauterized. on Protonix -12/30. Transfuse 2 units this morning for hemoglobin of 5.8. Still 5.8 this afternoon. Transfuse another 2 units. Restart IV pantoprazole twice a day. Plan for EGD/colonoscopy tomorrow. -12/31. Hemoglobin improved. GI performed colonoscopy. -01/01. Hemoglobin transfused again. Some dilutional leukopenia. -01/02 drop 9s-->7.5. cont to monitor Q8h. -01/03. Another acute hemoglobin drop. Transfuse 3 units. Discussed with GI. Possible colonoscopy. Continue to monitor closely. Fibrinogen level acceptable. GI reports history of small bowel AVMs seen on double-balloon enteroscopy at outside hospital.Hematology consulted. - 01/04: patient has received a total of 13 units of PRBCs. His hb is stable this morning at 8.5. Patient is NPO and will have araujo endoscopy (showed blood in duodenum no active bleeding) this am. Further recommendations by GI - 01/05: Hemoglobin 5.9. 2 units ordered. Patient has been evaluated by hematology who believes there is no underlying bleeding diatheses. If GI bleed persists advised to give FFP. Recommend obtaining a hepatitis panel, platelet function, and ultrasound of the abdomen to evaluate the liver. Von Wilibrand panel pending. Recommended that the patient may benefit from being a tertiary care center. GI has consulted general surgery for persistent duodenal bleed. post transfusion Hb/hct pending. - 01/06- dropped to 5.6 - stools with blood, no abdominal pain. GI made aware- for scope tomorrow. will transfused total 2 units RBC today - H and H in am - and transfused if H less than 7 Leukopenia- WBC trending down THrombocytopenia- plateletet trending down- stable this past 2 days monitor Hematology ff along with us 2. COPD: stable w/o exacerbation. Duobens prn. 3. HTN: stable clonodine prn. 4. ESRD on dialysis: followed by [facility]on MWF- on Epogen 5. Leukopenia: Monitor. Patient completed rocephin 12/28-01/04, no signs of infection.. Hematology ff along with us 6. Hypocalcemia: Resolved. Discharge Planning d/c pending stabilization of Hb and further workup by GI. (Mary Alcantar MD R3) Problem Qualifiers (1) GI bleed: Qualified Code: K92.2 - Gastrointestinal hemorrhage, unspecified gastrointestinal hemorrhage type (2) Hypotension: Qualified Code: I95.9 - Hypotension, unspecified hypotension type (3) COPD (chronic obstructive pulmonary disease): Gabby Rivers MD Jan 06, 2017 16:48 Gabby Rivers MD Jan 06, 2017 16:48
[2017-01-06] MEDS ORDERED: PEG (High)/E-LYTE SOLN 4000 ML BTL PO ONE (18:30)
[2017-01-07] VITALS (12 sets, daily range): BP systolic 110–135; BP diastolic 58–92; PULSE 57–94; RESP 16–18; TEMP 96.7–98.2; O2SAT 94–100
[2017-01-07] MEDS: PANTOPRAZOLE SODIUM 40 MG VIAL IV PUSH SCH ×2 (00:22→09:14)
[2017-01-07] MEDS: OCTREOTIDE INJ 100 MCG/ML VIAL IV PUSH SCH ×3 (00:22→15:42)
[2017-01-07] MEDS: ONDANSETRON ODT 4 MG TAB PO PRN (00:29)
[2017-01-07] MEDS: BENZONATATE 100 MG CAP PO PRN ×3 (00:30→17:12)
[2017-01-07] MEDS: CHLORHEXIDINE GLUCONATE 2 % 1 PACK (2 CLOTHS) TOP SCH (04:00)
--- NOTE | 2017-01-07 07:43 | HHI.PR ---
Subjective Remarks overnight - per staff- maroon colored stools- per patient brown but per staff- maroon colored stool no nausea or vomiting, no abdominal pain apparently refused the Golytely prep for colonoscopy Objective Vitals Vital Signs Date Time Temp Pulse Resp B/P Pulse Ox O2 Delivery O2 Flow Rate FiO2 01/07/17 05:46 97.1 74 18 110/73 96 01/07/17 00:00 98.0 75 16 120/63 98 01/06/17 21:30 98.3 72 16 112/58 95 01/06/17 20:00 72 01/06/17 18:40 97.9 75 16 102/67 97 01/06/17 16:22 96.8 78 16 99/58 98 01/06/17 16:04 96.8 75 16 118/58 98 01/06/17 16:00 96.8 75 16 118/58 98 01/06/17 08:06 86 01/06/17 08:00 96.9 75 18 103/69 98 I/O 01/06/17 01/06/17 01/06/17 01/07/17 01/07/17 01/07/17 06:59 14:59 22:59 06:59 14:59 22:59 Intake Total 720 ml 1080 ml Output Total 2100 ml Balance 720 ml -2100 ml 1080 ml Intake Oral 720 ml 1080 ml Stool Total 100 ml Hemodialysis 2000 ml # Voids 2 1 1 # Bowel Movements 1 3 Result Diagram: 01/06/17 1230 01/06/17 1230 Imaging Last Impressions GI Bleed Scan Nuclear Medicine 01/02/17 0000 Signed Impressions: Service Date/Time: December 13:59 - CONCLUSION: No evidence of active GI bleed. Warren Max MD Abdomen Ultrasound 12/28/16 0000 Signed Impressions: Service Date/Time: Wednesday, December 28, 2016 18:52 - CONCLUSION: Pronounced gallbladder wall thickening without definite stones. Ascites. End stage kidneys Baudilio Head MD Chest X-Ray 12/27/16 0000 Signed Impressions: Service Date/Time: Tuesday, December 27, 2016 21:36 - CONCLUSION: No acute disease. Warren Max MD Objective Remarks awake and alert, oriented x 3 anicteric lungs clear regular rhythm abdomen soft, nontender,good bowel sounds extremities no edema, LUE- AVF fistula- + bruit neuro exam non focal A/P Problem List: (1) GI bleed ICD Code: K92.2 Status: Acute (2) Hypotension ICD Code: I95.9 Status: Acute (3) Anemia requiring transfusions ICD Code: D64.9 Status: Acute (4) ESRD (end stage renal disease) on dialysis ICD Code: N18.6 Status: Chronic (5) Hypertension, benign ICD Code: I10 Status: Chronic (6) Alcohol abuse ICD Code: F10.10 Status: Chronic (7) COPD (chronic obstructive pulmonary disease) ICD Code: J44.9 Status: Chronic Assessment and Plan This is a 61 yo male hx of recurrent GI bleed, COPD, ESRD on dialysis, and HTN being treated for: 1. Recurrent GI Bleed Persistent Anemia - requiring multiple blood transfusion recurrent GI bleed (Hx of duodenal ulcers/esophagitis/Gastritis) Hospitalization hx, "-GI Dr. Giles consulted. s/p EGD with cautery: Gastritis, Duodenitis , 2 AVM cauterized. on Protonix -12/30. Transfuse 2 units this morning for hemoglobin of 5.8. Still 5.8 this afternoon. Transfuse another 2 units. Restart IV pantoprazole twice a day. Plan for EGD/colonoscopy tomorrow. -12/31. Hemoglobin improved. GI performed colonoscopy. -01/01. Hemoglobin transfused again. Some dilutional leukopenia. -01/02 drop 9s-->7.5. cont to monitor Q8h. -01/03. Another acute hemoglobin drop. Transfuse 3 units. Discussed with GI. Possible colonoscopy. Continue to monitor closely. Fibrinogen level acceptable. GI reports history of small bowel AVMs seen on double-balloon enteroscopy at outside hospital.Hematology consulted. - 01/04: patient has received a total of 13 units of PRBCs. His hb is stable this morning at 8.5. Patient is NPO and will have araujo endoscopy (showed blood in duodenum no active bleeding) this am. Further recommendations by GI - 01/05: Hemoglobin 5.9. 2 units ordered. Patient has been evaluated by hematology who believes there is no underlying bleeding diatheses. If GI bleed persists advised to give FFP. Recommend obtaining a hepatitis panel, platelet function, and ultrasound of the abdomen to evaluate the liver. Von Wilibrand panel pending. Recommended that the patient may benefit from being a tertiary care center. GI has consulted general surgery for persistent duodenal bleed. post transfusion Hb/hct pending. - 01/06- dropped to 5.6 - stools with blood, no abdominal pain. GI made aware- for scope tomorrow. will transfused total 2 units RBC today - repeat CBC this am pending - plan for repeat EGD and colonoscopy by GI this am- but cancelled as patient refused the 1 L golytely prep GI will d/w renal Leukopenia- WBC trending down- ff THrombocytopenia- plateletet trending down- stable this past 2 days monitor per Staff- refused prep- GI made aware Hematology ff along with us 2. COPD: stable w/o exacerbation. Duobens prn. 3. HTN: stable clonodine prn. 4. ESRD on dialysis: followed by nephro, HD MWF- on Epogen 5. Leukopenia: Monitor. Patient completed rocephin 12/28-01/04, no signs of infection.. Hematology ff along with us 6. Hypocalcemia: Resolved. Problem Qualifiers (1) GI bleed: Qualified Code: K92.2 - Gastrointestinal hemorrhage, unspecified gastrointestinal hemorrhage type (2) Hypotension: Qualified Code: I95.9 - Hypotension, unspecified hypotension type (3) COPD (chronic obstructive pulmonary disease): Gabby Rivers MD Jan 07, 2017 07:43
[2017-01-07 08:53] LABS: AUTOMATED NEUTROPHIL # 1.2 TH/MM3 (1.8-7.7); EOSINOPHIL # 0.1 TH/MM3 (0-0.4); EOSINOPHIL % 6.4 % (0.0-4.0); LYMPH % 25.8 % (9.0-44.0); LYMPHOCYTE # 0.6 TH/MM3 (1.0-4.8); MEAN CELL VOLUME 88.3 FL (80.0-100.0); MEAN CORPUSCULAR HEMOGLOBIN 31.8 PG (27.0-34.0); NEUT % 54.8 % (16.0-70.0); PLATELET COUNT 111 TH/MM3 (150-450); RED BLOOD COUNT 1.86 MIL/MM3 (4.50-5.90); RED CELL DISTRIBUTION WIDTH 15.1 % (11.6-17.2); WHITE BLOOD COUNT 2.3 TH/MM3 (4.0-11.0)
[2017-01-07] MEDS: FLUTICASONE PROPIONATE 50 MCG/ACT 16 GM NASAL SPRAY EACH NARE SCH (09:00)
[2017-01-07] MEDS: TRIAMCINOLONE ACETONIDE 0.1% CREAM 15 GM TOPICAL SCH ×2 (09:00→21:20)
[2017-01-07 09:07] LABS: HEMATOCRIT 16.4 % (39.0-51.0); HEMO FLAGS AUTO DIFF
[2017-01-07] MEDS: SEVELAMER CARBONATE 800 MG TAB PO SCH ×3 (09:13→15:42)
[2017-01-07] MEDS: guaiFENesin E.R. 600 MG TAB PO SCH ×2 (09:14→21:21)
[2017-01-07] MEDS: SODIUM CHLORIDE 0.9% FLUSH 5 ML FLUSH IV FLUSH SCH ×2 (09:14→21:23)
[2017-01-07 09:26] LABS: PLATELET ESTIMATE SMEAR LOW (NORMAL); PLATELET MORPHOLOGY NORMAL (NORMAL); SCAN/DIFF AUTO DIFF CONFIRMED
--- NOTE | 2017-01-07 10:55 | PD.ONC.PN ---
Subjective Subjective Remarks Afebrile overnight. patient states he slept well overnight. Staff reported he had maroon colored stools. Objective Data Date Time Temp Pulse Resp B/P Pulse Ox O2 Delivery O2 Flow Rate FiO2 01/07/17 08:00 97.3 63 18 113/58 95 01/07/17 05:46 97.1 74 18 110/73 96 01/07/17 00:00 98.0 75 16 120/63 98 01/06/17 21:30 98.3 72 16 112/58 95 01/06/17 20:00 72 01/06/17 18:40 97.9 75 16 102/67 97 01/06/17 16:22 96.8 78 16 99/58 98 01/06/17 16:04 96.8 75 16 118/58 98 01/06/17 16:00 96.8 75 16 118/58 98 Result Diagram: 01/07/17 0740 01/06/17 1230 Laboratory Results Laboratory Tests Test 01/06/17 01/06/17 01/06/17 01/06/17 12:30 14:24 16:51 16:54 White Blood Count 1.4 TH/MM3 Red Blood Count 1.74 MIL/MM3 Hemoglobin 5.3 GM/DL Hematocrit 15.6 % Mean Corpuscular Volume 89.5 FL Mean Corpuscular Hemoglobin 30.6 PG Mean Corpuscular Hemoglobin 34.2 % Concent Red Cell Distribution Width 15.9 % Platelet Count 125 TH/MM3 Mean Platelet Volume 8.8 FL Neutrophils (%) (Auto) 52.7 % Lymphocytes (%) (Auto) 30.3 % Monocytes (%) (Auto) 9.9 % Eosinophils (%) (Auto) 6.5 % Basophils (%) (Auto) 0.6 % Neutrophils # (Auto) 0.8 TH/MM3 Lymphocytes # (Auto) 0.4 TH/MM3 Monocytes # (Auto) 0.1 TH/MM3 Eosinophils # (Auto) 0.1 TH/MM3 Basophils # (Auto) 0.0 TH/MM3 CBC Comment AUTO DIFF Differential Total Cells 100 Counted Neutrophils % (Manual) 73 % Lymphocytes % 19 % Monocytes % 7 % Eosinophils % 1 % Neutrophils # (Manual) 1.0 TH/MM3 Differential Comment FINAL DIFF MANUAL Platelet Estimate LOW Platelet Morphology Comment NORMAL Reticulocyte Count 1.6 % Absolute Reticulocyte Count 26.7 MIL/L Sodium Level 144 MEQ/L Potassium Level 4.1 MEQ/L Chloride Level 104 MEQ/L Carbon Dioxide Level 31.6 MEQ/L Anion Gap 8 MEQ/L Blood Urea Nitrogen 46 MG/DL Creatinine 4.53 MG/DL Estimat Glomerular Filtration 13 ML/MIN Rate Random Glucose 124 MG/DL Calcium Level 7.3 MG/DL Protein Corrected Calcium 9.2 MG/DL Total Protein 3.9 GM/DL Vitamin B12 Level 604 PG/ML Folate 7.8 NG/ML Blood Type O POSITIVE Antibody Screen NEGATIVE Crossmatch Leukocyte-Reduced Leukocyte-Reduced Leukocyte-Reduced Red Blood Red Blood Red Blood Cells Cells Cells Blood Bank Comment Test 01/07/17 01/07/17 07:40 09:15 White Blood Count 2.3 TH/MM3 Red Blood Count 1.86 MIL/MM3 Hemoglobin 5.9 GM/DL Hematocrit 16.4 % Mean Corpuscular Volume 88.3 FL Mean Corpuscular Hemoglobin 31.8 PG Mean Corpuscular Hemoglobin 36.0 % Concent Red Cell Distribution Width 15.1 % Platelet Count 111 TH/MM3 Mean Platelet Volume 9.1 FL Neutrophils (%) (Auto) 54.8 % Lymphocytes (%) (Auto) 25.8 % Monocytes (%) (Auto) 12.0 % Eosinophils (%) (Auto) 6.4 % Basophils (%) (Auto) 1.0 % Neutrophils # (Auto) 1.2 TH/MM3 Lymphocytes # (Auto) 0.6 TH/MM3 Monocytes # (Auto) 0.3 TH/MM3 Eosinophils # (Auto) 0.1 TH/MM3 Basophils # (Auto) 0.0 TH/MM3 CBC Comment AUTO DIFF Differential Comment AUTO DIFF CONFIRMED Platelet Estimate LOW Platelet Morphology Comment NORMAL Blood Type O POSITIVE Crossmatch Leukocyte-Reduced Red Blood Cells Blood Bank Comment Administered Medications Medications (Trade) Dose Ordered Sig/Shiela Route PRN Reason Start Time Stop Time Status Last Admin Dose Admin IV Flush (NS Flush) 2 ml BID IV FLUSH 12/28/16 09:00 01/07/17 09:14 Chlorhexidine Gluconate (Chlorhexidine 2% Cloth) Taper DAILY@04 TOP 12/28/16 04:00 12/24/17 03:59 01/03/17 04:00 Triamcinolone Acetonide (Aristocort 0.1% Cream) 1 applic Q12HR TOPICAL 12/28/16 09:00 01/07/17 09:00 Sevelamer Carbonate 2400 mg 2,400 mg TIDAC PO 12/29/16 12:00 01/07/17 09:13 Sodium Chloride (NS 1000 ml Inj) 1,000 ml @ 200 mls/hr Q5H PRN IV WITH DIALYSIS 12/30/16 16:32 12/30/16 17:11 Albumin Human (Albumin 25% Inj) 25 gm UNSCH PRN IV WITH DIALYSIS 12/30/16 16:45 01/06/17 08:45 Diphenhydramine HCl (Benadryl) 25 mg UNSCH PRN PO for hives/itching/anaphylaxis 12/30/16 16:45 01/05/17 23:57 Epoetin Rayo (Epogen Inj) 10,000 units UNSCH PRN IV WITH DIALYSIS 12/30/16 16:45 01/06/17 08:45 Gelatin (Gelfoam 12 Mm/7 Mm Top) 1 foam UNSCH PRN TOP SEE LABEL COMMENTS 12/30/16 16:45 01/06/17 08:45 Acetaminophen (Tylenol) 650 mg Q6HR PRN PO PAIN SCALE 1 TO 10 12/30/16 19:30 01/05/17 23:57 Pantoprazole Sodium (Protonix Inj) 40 mg Q12H IV PUSH 12/30/16 23:00 01/07/17 09:14 Ondansetron HCl (Zofran Odt) 4 mg Q6H PRN PO NAUSEA IF ABLE TO TAKE PO 12/31/16 16:45 01/07/17 00:29 Octreotide Acetate (SandoSTATIN INJ) 100 mcg Q8H IV PUSH 01/05/17 16:00 01/07/17 09:14 Fluticasone Propionate (Flonase Angel Spr) 2 spray DAILY EACH NARE 01/06/17 09:00 01/07/17 09:00 Guaifenesin (Mucinex Er) 600 mg BID PO 01/05/17 23:30 01/07/17 09:14 Benzonatate (Tessalon) 200 mg TID PRN PO cough interfering with rest 01/06/17 05:45 01/07/17 09:13 Objective Remarks GENERAL: Middle aged male, lying supine in bed in nad. SKIN: Warm and dry. HEAD: Normocephalic. EYES: No injection or drainage. NECK: Supple, trachea midline. CARDIOVASCULAR: Regular rate and rhythm RESPIRATORY: Breath sounds equal bilaterally. No accessory muscle use. GASTROINTESTINAL: Abdomen soft, non-tender, nondistended. EXTREMITIES: No cyanosis. fistula left arm. NEUROLOGICAL: awake and alert, able to move extremities Assessment/Plan Problem List: (1) GI (gastrointestinal bleed) Status: Acute Plan: GI and GS following. --s/p double balloon enteroscopy at [facility] in 11/2016 --h/o small bowel ulceration with AVMs in the third portion of the duodenum. has had four clips placed in the past. --has also undergone GDA embolization. --von Willebrand panel is pending. --platelet function assay shows normal platelet function --chronic kidney disease can contribute to bleeding diathesis (2) Leukopenia Status: Acute Plan: --monitor --possibly due to bone marrow suppression from alcoholism --ANC>500K (3) Normocytic anemia due to blood loss Status: Acute Plan: --transfuse pRBC as needed (4) Thrombocytopenia Status: Acute Plan: --is mild. --LDH and haptoglobin WNL --hepatitic panel negative --abdominal u/s shows gallbladder thickening and ascites. end stage kidneys. Assessment 61y/o male with with recurrent GI bleeds and severe anemia. Hematology consulted to evaluate for underlying bleeding diastases. history of alcohol abuse, end-stage renal disease, recurrent GI bleeding requiring multiple endoscopic evaluations. on hemodialysis Friday, Friday and Friday. Bipolar disorder. Congestive heart failure. COPD. Epilepsy. Gout. Plan 1. colonoscopy today with GI 2. monitor CBC 3. transfuse PRN Attending Statement stool are dark ( melana) has ongoing GI bleed. No evidence of coagulopathy to account for GI bleeding. VWD panel is pending. BM supp from ETOH. transfer to tertiary center The exam, history, and the medical decision-making described in the above note were completed with the assistance of the mid-level provider. I reviewed and agree with the findings presented. I attest that I had a [id number] encounter with the patient on the same day, and personally performed and documented my assessment and findings in the medical record. Problem Qualifiers (1) GI (gastrointestinal bleed): Qualified Code: K92.2 - Gastrointestinal hemorrhage, unspecified gastrointestinal hemorrhage type Coye,Ngozi Maribeth PA Jan 07, 2017 10:55 Zohaib Lenz MD Jan 07, 2017 18:08
--- NOTE | 2017-01-07 12:11 | HHI.NPPN ---
Subjective General Problems: Anemia, Edema Renal Failure: Chronic Interval History Severe anemia persists. Dialyzed yesterday. (Sharron Lebron) Review of Systems Gastrointestinal Gastrointestinal: Blood/Tarry Stools (Sharron Lebron) Objective Data Data 01/06/17 01/07/17 19:00 07:00 Intake Total 480 ml 600 ml Output Total 2100 ml Balance -1620 ml 600 ml Intake Oral 480 ml 600 ml Stool Total 100 ml Hemodialysis 2000 ml # Voids 2 # Bowel Movements 3 Vital Signs Date Time Temp Pulse Resp B/P Pulse Ox O2 Delivery O2 Flow Rate FiO2 01/07/17 08:00 97.3 63 18 113/58 95 01/07/17 05:46 97.1 74 18 110/73 96 01/07/17 00:00 98.0 75 16 120/63 98 01/06/17 21:30 98.3 72 16 112/58 95 01/06/17 20:00 72 01/06/17 18:40 97.9 75 16 102/67 97 01/06/17 16:22 96.8 78 16 99/58 98 01/06/17 16:04 96.8 75 16 118/58 98 01/06/17 16:00 96.8 75 16 118/58 98 (Sharron Lebron) -: 01/07/17 0740 01/06/17 1230 Physical Exam General Appearance: Well Developed, No Acute Distress, Comfortable, Pale, Malnourished (Sharron Lebron) Throat Throat Exam: Oral Mucosa Rupert & Moist (Sharron Lebron) Pulmonary Resp Exam: Clear Bilaterally, Breath Sounds Equal, No Distress (Sharron Lebron) Cardiology CV Exam: Regular, Normal Sinus Rhythm (Sharron Lebron) Gastrointestinal/Abdomen GI Exam: Soft, Non-Tender, Bowel Sounds Present (Sharron Lebron) Musculoskeletal MS Exam: Joints Intact, Normal Tone (Sharron Lebron) Integumentary Skin Exam: Warm, Dry (Sharron Lebron) Extremeties Extremities Exam: Pedal Pulses Palpable, Trace Edema (Sharron Lebron) Neurologic Neuro Exam: Oriented, Speech Clear, Moving All Extremities (Sharron Lebron) Assessment/Plan Discussed Condition With: Patient Assessment Summary: Anemia of CKD, Hypertension Problem List: (1) ESRD (end stage renal disease) on dialysis Plan: Continue -W- dialysis; 3L UF yesterday has a functioning fistula for dialysis no acute renal concerns no IVF required ; avoid gadolinium in ESRD pts high protein diet (2) Anemia Plan: severely anemic despite multiple transfusions. 26 units give since admission serial Hemoglobin testing, transfuse as needed goal Hb >10 epogen with dialysis (3) GI bleed Plan: surgery has evaluated, recommend surgical removal of bleeding area of small intestines if current therapy fails octreotide has been started GI also following transfused with PRBC, also given 2 units FFP (4) Hypertension, benign Plan: continue to monitor (5) Cirrhosis Plan: gi following ETOH cessation advised (6) Metabolic bone disease Plan: on Renvela, obtain intermittent phos level (Sharron Lebron) Plan patient was seen and examined. Concerned that he continues to have GI bleeding. GI following. Repeat EGD and colonoscopy planned. (Rubén Browne MD) Problem Qualifiers (1) GI bleed: Qualified Code: K92.2 - Gastrointestinal hemorrhage, unspecified gastrointestinal hemorrhage type (2) Cirrhosis: Sharron Lebron Jan 07, 2017 12:11 Rubén Browne MD Jan 07, 2017 20:47
--- NOTE | 2017-01-07 13:13 | HHI.PR ---
Subjective Subjective Notes Agrees to have EGD/Colonoscopy today Objective Vitals/I&O Vital Signs Date Time Temp Pulse Resp B/P Pulse Ox O2 Delivery O2 Flow Rate FiO2 01/07/17 08:00 97.3 63 18 113/58 95 01/05/17 11:40 Nasal Cannula 2 Labs Laboratory Tests Test 01/06/17 01/06/17 01/06/17 01/07/17 14:24 16:51 16:54 07:40 Blood Type O POSITIVE Antibody Screen NEGATIVE Crossmatch Leukocyte-Reduced Leukocyte-Reduced Leukocyte-Reduced Red Blood Red Blood Red Blood Cells Cells Cells Blood Bank Comment White Blood Count 2.3 Red Blood Count 1.86 Hemoglobin 5.9 Hematocrit 16.4 Mean Corpuscular Volume 88.3 Mean Corpuscular Hemoglobin 31.8 Mean Corpuscular Hemoglobin 36.0 Concent Red Cell Distribution Width 15.1 Platelet Count 111 Mean Platelet Volume 9.1 Neutrophils (%) (Auto) 54.8 Lymphocytes (%) (Auto) 25.8 Monocytes (%) (Auto) 12.0 Eosinophils (%) (Auto) 6.4 Basophils (%) (Auto) 1.0 Neutrophils # (Auto) 1.2 Lymphocytes # (Auto) 0.6 Monocytes # (Auto) 0.3 Eosinophils # (Auto) 0.1 Basophils # (Auto) 0.0 CBC Comment AUTO DIFF Differential Comment AUTO DIFF CONFIRMED Platelet Estimate LOW Platelet Morphology Comment NORMAL Test 01/07/17 09:15 Blood Type O POSITIVE Crossmatch Leukocyte-Reduced Red Blood Cells Blood Bank Comment Cardiovascular: Regular Lungs: Clear Abdomen: Non-distended, Non-tender Extremities: No edema A/P Assessment and Plan 61 year old male with persistent GI bleeding; ESRD on HD -+Maroon stools this morning -Hmg 5.9; transfuse as necessary -Patient may need to be transferred to [facility] for TIPS procedure if bleeding is persistent -Continue non operative treatment Attending Note - Dr. Zeus causey The exam, history, and the medical decision-making described in the above note were completed with the assistance of the mid-level provider. I reviewed and agree with the findings presented. I attest that I had a [id number] encounter with the patient on the same day, and personally performed and documented my assessment and findings in the medical record. Ainsley Fletcher Jan 07, 2017 13:13 Kyle Schulz MD Jan 08, 2017 21:30
[2017-01-07] MEDS: ACETAMINOPHEN 325 MG TAB PO PRN (16:34)
[2017-01-07] MEDS ORDERED: traMADol HCL 50 MG TAB PO PRN (16:45)
[2017-01-07] MEDS ORDERED: PEG (High)/E-LYTE SOLN 4000 ML BTL PO ONE (17:00)
--- NOTE | 2017-01-07 17:02 | HHI.GIFU ---
GI Follow-up Note Consult Follow-up Subjective: Patient laying in bed comfortably, no new complaints except Melena Objective: PHYSICAL EXAMINATION: Vitals signs stable No fever HEENT: Pupils round and reactive to light; normocephalic; atraumatic; no jaundice. Throat is clear. NECK: Neck is supple, no JVD, no lymphadenopathy. CHEST: Chest is clear to auscultation and percussion. CARDIAC: Regular rate and rhythm with no murmur gallop or rubs. ABDOMEN: Soft, nondistended, nontender; no hepatosplenomegaly; bowel sounds are present in all four quadrants. EXTREMITIES: No clubbing, cyanosis, or edema. SKIN: Normal; no rash; no jaundice. [employer]: No focal deficits; alert and oriented times three. Available Data (labs, X- Rays, Procedues) : Last Impressions GI Bleed Scan Nuclear Medicine 01/02/17 0000 Signed Impressions: Service Date/Time: December 13:59 - CONCLUSION: No evidence of active GI bleed. Warren Max MD Abdomen Ultrasound 12/28/16 0000 Signed Impressions: Service Date/Time: Wednesday, December 28, 2016 18:52 - CONCLUSION: Pronounced gallbladder wall thickening without definite stones. Ascites. End stage kidneys Baudilio Head MD Chest X-Ray 12/27/16 0000 Signed Impressions: Service Date/Time: Tuesday, December 27, 2016 21:36 - CONCLUSION: No acute disease. Warren Max MD Laboratory Tests Test 01/05/17 01/05/17 01/06/17 01/06/17 19:06 23:03 12:30 14:24 Hemoglobin 7.1 GM/DL 5.3 GM/DL Hematocrit 21.3 % 15.6 % Blood Type O POSITIVE O POSITIVE Crossmatch Leukocyte-Reduced Leukocyte-Reduced Red Blood Red Blood Cells Cells Blood Bank Comment White Blood Count 1.4 TH/MM3 Red Blood Count 1.74 MIL/MM3 Mean Corpuscular Volume 89.5 FL Mean Corpuscular Hemoglobin 30.6 PG Mean Corpuscular Hemoglobin 34.2 % Concent Red Cell Distribution Width 15.9 % Platelet Count 125 TH/MM3 Mean Platelet Volume 8.8 FL Neutrophils (%) (Auto) 52.7 % Lymphocytes (%) (Auto) 30.3 % Monocytes (%) (Auto) 9.9 % Eosinophils (%) (Auto) 6.5 % Basophils (%) (Auto) 0.6 % Neutrophils # (Auto) 0.8 TH/MM3 Lymphocytes # (Auto) 0.4 TH/MM3 Monocytes # (Auto) 0.1 TH/MM3 Eosinophils # (Auto) 0.1 TH/MM3 Basophils # (Auto) 0.0 TH/MM3 CBC Comment AUTO DIFF Differential Total Cells 100 Counted Neutrophils % (Manual) 73 % Lymphocytes % 19 % Monocytes % 7 % Eosinophils % 1 % Neutrophils # (Manual) 1.0 TH/MM3 Differential Comment FINAL DIFF MANUAL Platelet Estimate LOW Platelet Morphology Comment NORMAL Reticulocyte Count 1.6 % Absolute Reticulocyte Count 26.7 MIL/L Sodium Level 144 MEQ/L Potassium Level 4.1 MEQ/L Chloride Level 104 MEQ/L Carbon Dioxide Level 31.6 MEQ/L Anion Gap 8 MEQ/L Blood Urea Nitrogen 46 MG/DL Creatinine 4.53 MG/DL Estimat Glomerular Filtration 13 ML/MIN Rate Random Glucose 124 MG/DL Calcium Level 7.3 MG/DL Protein Corrected Calcium 9.2 MG/DL Total Protein 3.9 GM/DL Vitamin B12 Level 604 PG/ML Folate 7.8 NG/ML Antibody Screen NEGATIVE Test 01/06/17 01/06/17 01/07/17 01/07/17 16:51 16:54 07:40 09:15 Crossmatch Leukocyte-Reduced Leukocyte-Reduced Leukocyte-Reduced Red Blood Red Blood Red Blood Cells Cells Cells Blood Bank Comment White Blood Count 2.3 TH/MM3 Red Blood Count 1.86 MIL/MM3 Hemoglobin 5.9 GM/DL Hematocrit 16.4 % Mean Corpuscular Volume 88.3 FL Mean Corpuscular Hemoglobin 31.8 PG Mean Corpuscular Hemoglobin 36.0 % Concent Red Cell Distribution Width 15.1 % Platelet Count 111 TH/MM3 Mean Platelet Volume 9.1 FL Neutrophils (%) (Auto) 54.8 % Lymphocytes (%) (Auto) 25.8 % Monocytes (%) (Auto) 12.0 % Eosinophils (%) (Auto) 6.4 % Basophils (%) (Auto) 1.0 % Neutrophils # (Auto) 1.2 TH/MM3 Lymphocytes # (Auto) 0.6 TH/MM3 Monocytes # (Auto) 0.3 TH/MM3 Eosinophils # (Auto) 0.1 TH/MM3 Basophils # (Auto) 0.0 TH/MM3 CBC Comment AUTO DIFF Differential Comment AUTO DIFF CONFIRMED Platelet Estimate LOW Platelet Morphology Comment NORMAL Blood Type O POSITIVE Allergies Coded Allergies Type Severity Reaction Last Updated Verified Chantix Allergy Severe Hypertension 12/27/16 Yes Haldol Allergy Severe SEIZURE 12/27/16 Yes Thorazine Allergy Severe SEIZURE 12/27/16 Yes Wellbutrin Allergy Severe SEIZURE 12/27/16 Yes Invega Sustenna Allergy Unknown 12/27/16 Yes Cass Allergy Unknown 12/27/16 Yes Risperdal Allergy Unknown 12/27/16 Yes Valproic Acid Allergy Unknown 12/27/16 Yes Active Scripts Medications Dose Route/Sig Days Date Category Dose Instructions Protonix (Pantoprazole Sodium) 40 Mg Tab 40 Mg PO DAILY 12/27/16 Reported Renvela (Sevelamer Carbonate) 800 Mg Tab 2,400 Mg PO TIDAC 12/12/16 Rx Metoprolol Succinate ER 24 HR (Metoprolol Succinate) 50 Mg Tab 50 Mg PO DAILY 12/09/16 Reported Allergy Nasal Crowley 24 Ho (Fluticasone Propionate (Nasal)) 50 Mcg/Act Spr 50 BID 11/24/16 Reported Nephro-Leyla Rx (Vitamin B Cmplx/Vit C/Folic AC) 1 Tab 1 Cap PO DAILY 11/12/16 Rx Pantoprazole (Pantoprazole Sodium) 40 Mg Tab 40 Mg PO Q12HR 30 11/12/16 Rx Guanfacine (Guanfacine HCl) 1 Mg Tab 1 Mg PO HS 11/11/16 Reported Do not crush, chew or divide tablet. Take with a meal. Lasix (Furosemide) 80 Mg Tab 80 Mg PO DAILY 11/11/16 Reported Sensipar (Cinacalcet) 30 Mg Tab 30 Mg PO DAILY 11/11/16 Reported [Renalsoftgel ] 1 Cap PO DAILY 11/11/16 Reported ASSESSMENT/PLAN: Seen and examined , still with melena, receiving more blood today. Repeat egd/colonoscopy planned. Importance of bowel prep stressed to him. It was a pleasure seeing Johnathon Sage Thank you for this consult. Entered by: Osmel Nolan MD Jan 07, 2017 17:02
[2017-01-07 22:17] LABS: ALBUMIN SPE 1.82 GM/DL (3.50-5.00); ALPHA 1 GLOBULIN 0.24 GM/DL (0.11-0.29); ALPHA 2 GLOBULIN 0.55 GM/DL (0.22-1.00)
[2017-01-07 22:18] LABS: BETA GLOBULINS (SPE) 0.42 GM/DL (0.53-1.03)
[2017-01-08] VITALS: BP 158/75; PULSE 66; RESP 18; TEMP 96.9; O2SAT 95
[2017-01-08] MEDS: CHLORHEXIDINE GLUCONATE 2 % 1 PACK (2 CLOTHS) TOP SCH (01:09)
[2017-01-08] MEDS: PANTOPRAZOLE SODIUM 40 MG VIAL IV PUSH SCH ×3 (01:10→21:21)
[2017-01-08] MEDS: OCTREOTIDE INJ 100 MCG/ML VIAL IV PUSH SCH ×2 (01:11→08:06)
[2017-01-08] MEDS: BENZONATATE 100 MG CAP PO PRN ×2 (03:29→12:56)
[2017-01-08 04:00] VITALS: BP 107/56; PULSE 69; RESP 18; TEMP 97; O2SAT 98
[2017-01-08] MEDS ORDERED: INSULIN HUMAN REGULAR 1,000 UNITS/10 ML VIAL SQ PRN (05:30)
[2017-01-08] MEDS ORDERED: LACTATED RINGER'S 1000 ML IV SCH (05:30)
[2017-01-08] MEDS ORDERED: SODIUM CHLORID 0.9% 500 ML IV SCH (05:30)
[2017-01-08 07:49] LABS: AUTOMATED NEUTROPHIL # 1.1 TH/MM3 (1.8-7.7); BASOPHIL % 0.5 % (0.0-2.0); EOSINOPHIL # 0.1 TH/MM3 (0-0.4); EOSINOPHIL % 4.7 % (0.0-4.0); LYMPH % 31.3 % (9.0-44.0); LYMPHOCYTE # 0.7 TH/MM3 (1.0-4.8); MEAN CELL VOLUME 87.1 FL (80.0-100.0); MEAN CORPUSCULAR HEMOGLOBIN 29.8 PG (27.0-34.0); MEAN CORPUSCULAR HGB CONC 34.2 % (32.0-36.0); MONO % 10.2 % (0.0-8.0); NEUT % 53.3 % (16.0-70.0); PLATELET COUNT 104 TH/MM3 (150-450); RED BLOOD COUNT 1.84 MIL/MM3 (4.50-5.90); RED CELL DISTRIBUTION WIDTH 16.5 % (11.6-17.2); WHITE BLOOD COUNT 2.1 TH/MM3 (4.0-11.0)
[2017-01-08 07:58] LABS: APTT (PATIENT) 28.7 SEC (24.3-30.1); PROTHROMBIN TIME - PATIENT 10.7 SEC (9.8-11.6)
[2017-01-08 08:00] VITALS: BP 108/65; PULSE 67; RESP 18; TEMP 96.2; O2SAT 97
[2017-01-08] MEDS: SEVELAMER CARBONATE 800 MG TAB PO SCH ×3 (08:00→21:23)
[2017-01-08] MEDS: guaiFENesin E.R. 600 MG TAB PO SCH ×2 (08:06→21:20)
[2017-01-08] MEDS: SODIUM CHLORIDE 0.9% FLUSH 5 ML FLUSH IV FLUSH SCH ×2 (08:07→21:20)
[2017-01-08] MEDS: TRIAMCINOLONE ACETONIDE 0.1% CREAM 15 GM TOPICAL SCH ×2 (08:07→21:24)
[2017-01-08] MEDS: FLUTICASONE PROPIONATE 50 MCG/ACT 16 GM NASAL SPRAY EACH NARE SCH (08:07)
[2017-01-08 08:16] LABS: HEMO FLAGS DIFF FINAL
[2017-01-08 11:04] VITALS: BP 108/65; PULSE 67; RESP 18; TEMP 96.2; O2SAT 97
--- NOTE | 2017-01-08 11:30 | HHI.NPPN ---
Subjective General Problems: Anemia, Edema Renal Failure: Chronic Interval History Critical anemia persists. To have additional endoscopies today. (Sharron Lebron) Review of Systems Gastrointestinal Gastrointestinal: Blood/Tarry Stools (Sharron Lebron) Objective Data Data 01/07/17 01/08/17 19:00 07:00 Intake Total 1260 ml 695 ml Balance 1260 ml 695 ml Intake Oral 960 ml IV Total 25 ml Packed Cells 300 ml 670 ml # Voids 1 2 # Bowel Movements 1 4 Vital Signs Date Time Temp Pulse Resp B/P Pulse Ox O2 Delivery O2 Flow Rate FiO2 01/08/17 11:04 96.2 67 18 108/65 97 01/08/17 08:00 96.2 67 18 108/65 97 01/08/17 04:00 97.0 69 18 107/56 98 01/08/17 00:00 96.9 66 18 158/75 95 01/07/17 21:37 97.0 64 16 119/79 97 01/07/17 20:03 59 01/07/17 20:00 97.6 57 18 135/77 100 01/07/17 18:32 98.2 58 16 124/82 01/07/17 18:20 98.1 60 16 118/71 01/07/17 15:49 96.7 72 16 114/59 01/07/17 15:45 72 01/07/17 15:34 97.5 75 16 123/92 98 01/07/17 12:00 96.9 94 18 120/70 94 (Sharron Lebron) -: 01/08/17 0708 01/06/17 1230 Physical Exam General Appearance: Well Developed, No Acute Distress, Comfortable, Pale, Malnourished (Sharron Lebron) Throat Throat Exam: Oral Mucosa [place] & Moist (Sharron Lebron) Pulmonary Resp Exam: Clear Bilaterally, Breath Sounds Equal, No Distress (Sharron Lebron) Cardiology CV Exam: Regular, Normal Sinus Rhythm (Sharron Lebron) Gastrointestinal/Abdomen GI Exam: Soft, Non-Tender, Bowel Sounds Present (Sharron Lebron) Musculoskeletal MS Exam: Joints Intact, Normal Tone (Sharron Lebron) Integumentary Skin Exam: Warm, Dry (Sharron Lebron) Extremeties Extremities Exam: Pedal Pulses Palpable, Trace Edema (Sharron Lebron) Neurologic Neuro Exam: Oriented, Speech Clear, Moving All Extremities (Sharron Lebron) Assessment/Plan Discussed Condition With: Patient Assessment Summary: Anemia of CKD, Hypertension Problem List: (1) ESRD (end stage renal disease) on dialysis Plan: Continue - dialysis; he is due today has a functioning fistula for dialysis no acute renal concerns no IVF required ; avoid gadolinium in ESRD pts high protein diet (2) Anemia Plan: severely anemic despite multiple transfusions. 28 units given to date serial Hemoglobin testing, transfuse as needed goal Hb >10 epogen with dialysis (3) GI bleed Plan: surgery has evaluated, recommend surgical removal of bleeding area of small intestines if current therapy fails may require transfer to [facility] octreotide has been started GI also following multiple transfusions as above he has also been given platelets, is thrombocytopenic, presumably consumptive give a dose of desmopressin (4) Hypertension, benign Plan: continue to monitor (5) Cirrhosis Plan: gi following ETOH cessation advised (6) Metabolic bone disease Plan: on Renvela, obtain intermittent phos level (Sharron Lebron) Plan patient was seen and examined. Dialysis today. Severely anemic, GI following. May need transfer to tertiary care center. ( Rubén Browne MD) Problem Qualifiers (1) GI bleed: Qualified Code: K92.2 - Gastrointestinal hemorrhage, unspecified gastrointestinal hemorrhage type (2) Cirrhosis: Sharron Lebron Jan 08, 2017 11:30 Rubén Browne MD Jan 08, 2017 20:02
[2017-01-08] MEDS ORDERED: PHENYLEPH/NS 1000 MCG/10 ML SYR IV ONE (12:00)
[2017-01-08] MEDS ORDERED: PROPOFOL 200 MG/20 ML AMP IV ONE (12:01)
[2017-01-08] MEDS ORDERED: DO NOT ADM ANY ANTICOAGULANT DRUGS XX PRN (12:30)
--- NOTE | 2017-01-08 12:53 | HHI.PR ---
Subjective Remarks discussed with Dr. Salinas- EGD findings- lots of blood in stomach- no active bleeding seen Bleeding scan will be ordered we will transfer patient to the ICU for close monitoring will try to transfer him to a tertiary center he will get hold of an admitting specialist and will let me know Transfer care center will be notified Objective Vitals Vital Signs Date Time Temp Pulse Resp B/P Pulse Ox O2 Delivery O2 Flow Rate FiO2 01/08/17 11:04 96.2 67 18 108/65 97 01/08/17 08:00 96.2 67 18 108/65 97 01/08/17 04:00 97.0 69 18 107/56 98 01/08/17 00:00 96.9 66 18 158/75 95 01/07/17 21:37 97.0 64 16 119/79 97 01/07/17 20:03 59 01/07/17 20:00 97.6 57 18 135/77 100 01/07/17 18:32 98.2 58 16 124/82 01/07/17 18:20 98.1 60 16 118/71 01/07/17 15:49 96.7 72 16 114/59 01/07/17 15:45 72 01/07/17 15:34 97.5 75 16 123/92 98 I/O 01/07/17 01/07/17 01/07/17 01/08/17 01/08/17 01/08/17 07:00 15:00 23:00 07:00 15:00 23:00 Intake Total 960 ml 995 ml Balance 960 ml 995 ml Intake Oral 960 ml IV Total 25 ml Packed Cells 970 ml # Voids 1 2 # Bowel Movements 1 2 2 Result Diagram: 01/08/17 0708 01/06/17 1230 Objective Remarks awake and alert, oriented x 3 anicteric lungs clear regular rhythm abdomen soft, nontender,good bowel sounds extremities no edema, LUE- AVF fistula- + bruit neuro exam non focal A/P Problem List: (1) GI bleed ICD Code: K92.2 Status: Acute (2) Hypotension ICD Code: I95.9 Status: Acute (3) Anemia requiring transfusions ICD Code: D64.9 Status: Acute (4) ESRD (end stage renal disease) on dialysis ICD Code: N18.6 Status: Chronic (5) Hypertension, benign ICD Code: I10 Status: Chronic (6) Alcohol abuse ICD Code: F10.10 Status: Chronic (7) COPD (chronic obstructive pulmonary disease) ICD Code: J44.9 Status: Chronic Assessment and Plan This is a 61 yo male hx of recurrent GI bleed, COPD, ESRD on dialysis, and HTN being treated for: 1. Recurrent GI Bleed Persistent Anemia - requiring multiple blood transfusion recurrent GI bleed (Hx of duodenal ulcers/esophagitis/Gastritis) Hospitalization hx, "-GI Dr. Giles consulted. s/p EGD with cautery: Gastritis, Duodenitis , 2 AVM cauterized. on Protonix -12/30. Transfuse 2 units this morning for hemoglobin of 5.8. Still 5.8 this afternoon. Transfuse another 2 units. Restart IV pantoprazole twice a day. Plan for EGD/colonoscopy tomorrow. -12/31. Hemoglobin improved. GI performed colonoscopy. -01/01. Hemoglobin transfused again. Some dilutional leukopenia. -01/02 drop 9s-->7.5. cont to monitor Q8h. -01/03. Another acute hemoglobin drop. Transfuse 3 units. Discussed with GI. Possible colonoscopy. Continue to monitor closely. Fibrinogen level acceptable. GI reports history of small bowel AVMs seen on double-balloon enteroscopy at outside hospital.Hematology consulted. - 01/04: patient has received a total of 13 units of PRBCs. His hb is stable this morning at 8.5. Patient is NPO and will have araujo endoscopy (showed blood in duodenum no active bleeding) this am. Further recommendations by GI - 01/05: Hemoglobin 5.9. 2 units ordered. Patient has been evaluated by hematology who believes there is no underlying bleeding diatheses. If GI bleed persists advised to give FFP. Recommend obtaining a hepatitis panel, platelet function, and ultrasound of the abdomen to evaluate the liver. Von Wilibrand panel pending. Recommended that the patient may benefit from being a tertiary care center. GI has consulted general surgery for persistent duodenal bleed. post transfusion Hb/hct pending. - 01/06- dropped to 5.6 - stools with blood, no abdominal pain. GI made aware- for scope tomorrow. will transfused total 2 units RBC today - repeat CBC this am pending - plan for repeat EGD and colonoscopy by GI this am- but cancelled as patient refused the 1 L golytely prep GI will d/w renal Leukopenia- WBC trending down- ff THrombocytopenia- plateletet trending down- stable this past 2 days monitor per Staff- refused prep- GI made aware Hematology ff along with us 2. COPD: stable w/o exacerbation. Duobens prn. 3. HTN: stable clonodine prn. 4. ESRD on dialysis: followed by nephro, HD MWF- on Epogen 5. Leukopenia: Monitor. Patient completed rocephin 12/28-01/04, no signs of infection.. Hematology ff along with us 6. Hypocalcemia: Resolved. Problem Qualifiers (1) GI bleed: Qualified Code: K92.2 - Gastrointestinal hemorrhage, unspecified gastrointestinal hemorrhage type (2) Hypotension: Qualified Code: I95.9 - Hypotension, unspecified hypotension type (3) COPD (chronic obstructive pulmonary disease): Gabby Rivers MD Jan 08, 2017 12:53
[2017-01-08] MEDS ORDERED: DESMOPRESSIN ACETATE 4 MCG/ML VIAL IV PUSH ONE (14:30)
--- NOTE | 2017-01-08 16:05 | RADRPT ---
EXAM DATE/TIME: 01/08/2017 14:36 [facility] COMPARISON: CT ABDOMEN & PELVIS W/O CONTRAST, November 11, 2016, 3:47. GI BLEEDING SCAN, January 02, 2017, 13:59. INDICATIONS : Rectal bleeding and anemia. DOSE: 21.3 mCi IMAGIN mins MEDICAL HISTORY : Renal insufficiency, chrnoic. Hypertension. Chronic obstructive pulmonary disease. ETOH abuse. SURGICAL HISTORY : Umbilical hernia repair. Cauterized GI Bleed 11/2016 ENCOUNTER: Initial ACUITY: 1 day PAIN SCALE: 0/10 LOCATION: Umbilical TECHNIQUE: Following the modified in vitro labeling of autologous red cells, dynamic continuous images were acqu ired for the specified interval. FINDINGS: BIODISTRIBUTION: There is a very good labeling of red cells without significant uptake in the gastric wall. There is good delineation of the blood pool of the spleen and abdominal vessels. BLEEDING: There is hemorrhage seen in the left upper quadrant. The hemorrhage extends inferiorly and then towar ds the midline. CONCLUSION: Hemorrhage in the left upper quadrant. It is likely in small bowel although hemorrhage at the splenic flexure and then going retrograde in the transverse colon cannot absolutely be excluded. Baudilio Pizarro MD on January 08, 2017 at 16:00 Board Certified Radiologist. This report was verified electronically.
--- NOTE | 2017-01-08 17:52 | PD.ONC.PN ---
Subjective Subjective Remarks dark stool c/o fatigue Objective Data Date Time Temp Pulse Resp B/P Pulse Ox O2 Delivery O2 Flow Rate FiO2 01/08/17 12:40 84 16 113/71 100 01/08/17 12:30 79 18 92/64 99 01/08/17 12:22 97.5 81 18 116/72 100 01/08/17 11:04 96.2 67 18 108/65 97 01/08/17 08:00 96.2 67 18 108/65 97 01/08/17 04:00 97.0 69 18 107/56 98 01/08/17 00:00 96.9 66 18 158/75 95 01/07/17 21:37 97.0 64 16 119/79 97 01/07/17 20:03 59 01/07/17 20:00 97.6 57 18 135/77 100 01/07/17 18:32 98.2 58 16 124/82 01/07/17 18:20 98.1 60 16 118/71 01/08/17 01/08/17 01/08/17 07:00 15:00 23:00 Intake Total 150 ml Balance 150 ml Result Diagram: 01/08/17 0708 01/06/17 1230 Laboratory Results Laboratory Tests Test 01/08/17 01/08/17 07:08 08:43 White Blood Count 2.1 TH/MM3 Red Blood Count 1.84 MIL/MM3 Hemoglobin 5.5 GM/DL Hematocrit 16.0 % Mean Corpuscular Volume 87.1 FL Mean Corpuscular Hemoglobin 29.8 PG Mean Corpuscular Hemoglobin 34.2 % Concent Red Cell Distribution Width 16.5 % Platelet Count 104 TH/MM3 Mean Platelet Volume 8.8 FL Neutrophils (%) (Auto) 53.3 % Lymphocytes (%) (Auto) 31.3 % Monocytes (%) (Auto) 10.2 % Eosinophils (%) (Auto) 4.7 % Basophils (%) (Auto) 0.5 % Neutrophils # (Auto) 1.1 TH/MM3 Lymphocytes # (Auto) 0.7 TH/MM3 Monocytes # (Auto) 0.2 TH/MM3 Eosinophils # (Auto) 0.1 TH/MM3 Basophils # (Auto) 0.0 TH/MM3 CBC Comment DIFF FINAL Differential Comment Prothrombin Time 10.7 SEC Prothromb Time International 1.0 RATIO Ratio Activated Partial 28.7 SEC Thromboplast Time Blood Type O POSITIVE Crossmatch Leukocyte-Reduced Red Blood Cells Blood Bank Comment Imaging Studies Last 24 hours Impressions GI Bleed Scan Nuclear Medicine 01/08/17 0000 Signed Impressions: Service Date/Time: Sunday, January 08, 2017 14:36 - CONCLUSION: Hemorrhage in the left upper quadrant. It is likely in small bowel although hemorrhage at the splenic flexure and then going retrograde in the transverse colon cannot absolutely be excluded. Baudilio Pizarro MD Administered Medications Medications (Trade) Dose Ordered Sig/Shiela Route PRN Reason Start Time Stop Time Status Last Admin Dose Admin IV Flush (NS Flush) 2 ml BID IV FLUSH 12/28/16 09:00 01/08/17 08:07 Chlorhexidine Gluconate (Chlorhexidine 2% Cloth) Taper DAILY@04 TOP 12/28/16 04:00 12/24/17 03:59 01/03/17 04:00 Triamcinolone Acetonide (Aristocort 0.1% Cream) 1 applic Q12HR TOPICAL 12/28/16 09:00 01/08/17 08:07 Sevelamer Carbonate 2400 mg 2,400 mg TIDAC PO 12/29/16 12:00 01/07/17 15:42 Sodium Chloride (NS 1000 ml Inj) 1,000 ml @ 200 mls/hr Q5H PRN IV WITH DIALYSIS 12/30/16 16:32 12/30/16 17:11 Albumin Human (Albumin 25% Inj) 25 gm UNSCH PRN IV WITH DIALYSIS 12/30/16 16:45 01/06/17 08:45 Diphenhydramine HCl (Benadryl) 25 mg UNSCH PRN PO for hives/itching/anaphylaxis 12/30/16 16:45 01/05/17 23:57 Epoetin Rayo (Epogen Inj) 10,000 units UNSCH PRN IV WITH DIALYSIS 12/30/16 16:45 01/06/17 08:45 Gelatin (Gelfoam 12 Mm/7 Mm Top) 1 foam UNSCH PRN TOP SEE LABEL COMMENTS 12/30/16 16:45 01/06/17 08:45 Acetaminophen (Tylenol) 650 mg Q6HR PRN PO PAIN SCALE 1 TO 10 12/30/16 19:30 01/07/17 16:34 Pantoprazole Sodium (Protonix Inj) 40 mg Q12H IV PUSH 12/30/16 23:00 01/08/17 08:59 Ondansetron HCl (Zofran Odt) 4 mg Q6H PRN PO NAUSEA IF ABLE TO TAKE PO 12/31/16 16:45 01/07/17 00:29 Octreotide Acetate (SandoSTATIN INJ) 100 mcg Q8H IV PUSH 01/05/17 16:00 01/08/17 08:06 Fluticasone Propionate (Flonase Angel Spr) 2 spray DAILY EACH NARE 01/06/17 09:00 01/08/17 08:07 Guaifenesin (Mucinex Er) 600 mg BID PO 01/05/17 23:30 01/08/17 08:06 Benzonatate (Tessalon) 200 mg TID PRN PO cough interfering with rest 01/06/17 05:45 01/08/17 12:56 Objective Remarks GENERAL: Well-nourished, well-developed patient. SKIN: Warm and dry. HEAD: Normocephalic. EYES: No scleral icterus. No injection or drainage. NECK: Supple, trachea midline. No JVD or lymphadenopathy. LYMPHATIC: No adenopathy. CARDIOVASCULAR: Regular rate and rhythm without murmurs. RESPIRATORY: Breath sounds equal bilaterally. No accessory muscle use. GASTROINTESTINAL: Abdomen soft, non-tender, nondistended. EXTREMITIES: No cyanosis, or edema. NEUROLOGICAL: No obvious focal deficit. Awake, alert, and oriented x3. Assessment/Plan Problem List: (1) GI (gastrointestinal bleed) Status: Acute Plan: GI and GS following. --s/p double balloon enteroscopy at [facility] in 11/2016 --h/o small bowel ulceration with AVMs in the third portion of the duodenum. has had four clips placed in the past. --has also undergone GDA embolization. --von Willebrand panel is pending. --platelet function assay shows normal platelet function --chronic kidney disease can contribute to bleeding diathesis (2) Leukopenia Status: Acute Plan: --monitor --possibly due to bone marrow suppression from alcoholism --ANC>500K (3) Normocytic anemia due to blood loss Status: Acute Plan: --transfuse pRBC as needed (4) Thrombocytopenia Status: Acute Plan: --is mild. --LDH and haptoglobin WNL --hepatitic panel negative --abdominal u/s shows gallbladder thickening and ascites. end stage kidneys. Assessment 61y/o male with with recurrent GI bleeds and severe anemia. Hematology consulted to evaluate for underlying bleeding diastases. history of alcohol abuse, end-stage renal disease, recurrent GI bleeding requiring multiple endoscopic evaluations. on hemodialysis Friday, Friday and Friday. Bipolar disorder. Congestive heart failure. COPD. Epilepsy. Gout. Plan 1. s/p EGD and colonoscopy 2. monitor CBC 3. transfuse PRN 4. Need to be transferred to tertiary center. Problem Qualifiers (1) GI (gastrointestinal bleed): Qualified Code: K92.2 - Gastrointestinal hemorrhage, unspecified gastrointestinal hemorrhage type Zohaib Lenz MD Jan 08, 2017 17:52
[2017-01-08 17:54] LABS: COAG FACTOR VIII 74 (50-180)
[2017-01-08 19:53] LABS: VWF AG 148 % (50-217)
[2017-01-08 20:00] VITALS: BP 121/62; PULSE 55; PULSE 56; RESP 19; TEMP 97.9; O2SAT 97
[2017-01-08 21:22] LABS: REVIEW FLAG FINAL
[2017-01-08] MEDS ORDERED: FUROSEMIDE 20 MG/2 ML VIAL IV PUSH ONE (21:45)
[2017-01-08 22:00] VITALS: PULSE 57
[2017-01-09] VITALS (9 sets, daily range): BP systolic 118–156; BP diastolic 53–70; PULSE 61–62; RESP 13–18; TEMP 98–98.2; O2SAT 93–100
[2017-01-09] MEDS: OCTREOTIDE INJ 100 MCG/ML VIAL IV PUSH SCH ×2 (01:53→08:55)
[2017-01-09] MEDS: CHLORHEXIDINE GLUCONATE 2 % 1 PACK (2 CLOTHS) TOP SCH (01:53)
--- NOTE | 2017-01-09 07:56 | HHI.PR ---
Subjective Remarks just one BM overnight- large per staff- maroon colored no nausea/vomiting or abdominal pain feels tired last transfusion 2 units during HD and 2 units early am Objective Vitals Vital Signs Date Time Temp Pulse Resp B/P Pulse Ox O2 Delivery O2 Flow Rate FiO2 01/09/17 06:00 61 01/09/17 04:00 98.0 62 18 145/65 98 01/09/17 04:00 62 01/09/17 02:00 62 01/09/17 01:49 100 Nasal Cannula 1.00 01/09/17 00:00 62 01/09/17 00:00 98.2 62 13 118/53 100 01/08/17 22:00 57 01/08/17 20:00 97.9 55 19 121/62 97 01/08/17 20:00 56 01/08/17 12:40 84 16 113/71 100 01/08/17 12:30 79 18 92/64 99 01/08/17 12:22 97.5 81 18 116/72 100 01/08/17 11:04 96.2 67 18 108/65 97 01/08/17 08:00 96.2 67 18 108/65 97 I/O 01/08/17 01/08/17 01/08/17 01/09/17 01/09/17 01/09/17 07:00 15:00 23:00 07:00 15:00 23:00 Intake Total 150 ml 600 ml 1100 ml Output Total 1300 ml 0 ml Balance 150 ml -700 ml 1100 ml Intake Oral 0 ml 500 ml Packed Cells 600 ml 600 ml Other 150 ml Output Urine Total 0 ml 0 ml Hemodialysis 1300 ml # Voids 2 2 # Bowel Movements 2 0 1 Result Diagram: 01/08/17 2111 01/06/17 1230 Imaging Last Impressions GI Bleed Scan Nuclear Medicine 01/08/17 0000 Signed Impressions: Service Date/Time: Sunday, January 08, 2017 14:36 - CONCLUSION: Hemorrhage in the left upper quadrant. It is likely in small bowel although hemorrhage at the splenic flexure and then going retrograde in the transverse colon cannot absolutely be excluded. Baudilio Pizarro MD Abdomen Ultrasound 12/28/16 0000 Signed Impressions: Service Date/Time: Wednesday, December 28, 2016 18:52 - CONCLUSION: Pronounced gallbladder wall thickening without definite stones. Ascites. End stage kidneys Baudilio Head MD Chest X-Ray 12/27/16 0000 Signed Impressions: Service Date/Time: Tuesday, December 27, 2016 21:36 - CONCLUSION: No acute disease. Warren Max MD Objective Remarks awake and alert, oriented x 3 anicteric lungs clear regular rhythm abdomen soft, nontender,good bowel sounds extremities no edema, LUE- AVF fistula- + bruit neuro exam non focal A/P Problem List: (1) GI bleed ICD Code: K92.2 Status: Acute (2) Hypotension ICD Code: I95.9 Status: Acute (3) Anemia requiring transfusions ICD Code: D64.9 Status: Acute (4) ESRD (end stage renal disease) on dialysis ICD Code: N18.6 Status: Chronic (5) Hypertension, benign ICD Code: I10 Status: Chronic (6) Alcohol abuse ICD Code: F10.10 Status: Chronic (7) COPD (chronic obstructive pulmonary disease) ICD Code: J44.9 Status: Chronic Assessment and Plan This is a 61 yo male hx of recurrent GI bleed, COPD, ESRD on dialysis, and HTN being treated for: 1. Recurrent GI Bleed Persistent Anemia - requiring multiple blood transfusion recurrent GI bleed (Hx of duodenal ulcers/esophagitis/Gastritis) Hospitalization hx, "-GI Dr. Giles consulted. s/p EGD with cautery: Gastritis, Duodenitis , 2 AVM cauterized. on Protonix -12/30. Transfuse 2 units this morning for hemoglobin of 5.8. Still 5.8 this afternoon. Transfuse another 2 units. Restart IV pantoprazole twice a day. Plan for EGD/colonoscopy tomorrow. -12/31. Hemoglobin improved. GI performed colonoscopy. -01/01. Hemoglobin transfused again. Some dilutional leukopenia. -01/02 drop 9s-->7.5. cont to monitor Q8h. -01/03. Another acute hemoglobin drop. Transfuse 3 units. Discussed with GI. Possible colonoscopy. Continue to monitor closely. Fibrinogen level acceptable. GI reports history of small bowel AVMs seen on double-balloon enteroscopy at outside hospital.Hematology consulted. - 01/04: patient has received a total of 13 units of PRBCs. His hb is stable this morning at 8.5. Patient is NPO and will have araujo endoscopy (showed blood in duodenum no active bleeding) this am. Further recommendations by GI - 01/05: Hemoglobin 5.9. 2 units ordered. Patient has been evaluated by hematology who believes there is no underlying bleeding diatheses. If GI bleed persists advised to give FFP. Recommend obtaining a hepatitis panel, platelet function, and ultrasound of the abdomen to evaluate the liver. Von Wilibrand panel pending. Recommended that the patient may benefit from being a tertiary care center. GI has consulted general surgery for persistent duodenal bleed. post transfusion Hb/hct pending. - 01/06- dropped to 5.6 - stools with blood, no abdominal pain. GI made aware- for scope tomorrow. will transfused total 2 units RBC today - 01/08- Bleeding scan shows bleeding in the small bowel area transfused 2 units RBC overnight, 2 units HD yesterday today 01/09- for angiogram Leukopenia- WBC trending down- ff THrombocytopenia- plateletet trending down- stable this past 2 days monitor Hematology ff along with us d/w Dr. Salinas yesterday 01/08- transfer to [facility]- we have to have an accepting specialist for me to call transfer center we will know today after angiogram 2. COPD: stable w/o exacerbation. Duobens prn. 3. HTN: stable clonodine prn. 4. ESRD on dialysis: followed by [facility] MWF- on Epogen 5. Leukopenia: Monitor. Patient completed rocephin /-01/04, no signs of infection.. Hematology ff along with us 6. Hypocalcemia: Resolved. 10: [address] Salinas Transfer to [place] - He spoke with Dr. Simmons- GI specialist and accepting web site designer - Dr. Dunn accepted patient CM informed and Transfer center informed total time spent coordinating care and discharge 90 minutes Problem Qualifiers (1) GI bleed: Qualified Code: K92.2 - Gastrointestinal hemorrhage, unspecified gastrointestinal hemorrhage type (2) Hypotension: Qualified Code: I95.9 - Hypotension, unspecified hypotension type (3) COPD (chronic obstructive pulmonary disease): Gabby Rivers MD Jan 09, 2017 07:56
--- NOTE | 2017-01-09 08:26 | HHI.NPPN ---
Subjective General Problems: Anemia, Edema Renal Failure: Chronic Interval History patient was seen and examined. He is now in ICU. Received 2 units of PRBC at dialysis yesterday, 2 more units overnight. Underwent bleeding scan, bleeding found at left upper quadrant, could be from small bowel or splenic flexure. Review of Systems Gastrointestinal Gastrointestinal: Blood/Tarry Stools Objective Data Data 01/08/17 01/09/17 19:00 07:00 Intake Total 750 ml 1100 ml Output Total 1300 ml Balance 750 ml -200 ml Intake Oral 500 ml Packed Cells 600 ml 600 ml Other 150 ml Output Urine Total 0 ml Hemodialysis 1300 ml # Voids 2 # Bowel Movements 1 Vital Signs Date Time Temp Pulse Resp B/P Pulse Ox O2 Delivery O2 Flow Rate FiO2 01/09/17 08:20 93 21 01/09/17 06:00 61 01/09/17 04:00 98.0 62 18 145/65 98 01/09/17 04:00 62 01/09/17 02:00 62 01/09/17 01:49 100 Nasal Cannula 1.00 01/09/17 00:00 62 01/09/17 00:00 98.2 62 13 118/53 100 01/08/17 22:00 57 01/08/17 20:00 97.9 55 19 121/62 97 01/08/17 20:00 56 01/08/17 12:40 84 16 113/71 100 01/08/17 12:30 79 18 92/64 99 01/08/17 12:22 97.5 81 18 116/72 100 01/08/17 11:04 96.2 67 18 108/65 97 -: 01/08/17 2111 01/06/17 1230 Physical Exam General Appearance: Well Developed, No Acute Distress, Comfortable, Pale, Malnourished Throat Throat Exam: Oral Mucosa [place] & Moist Pulmonary Resp Exam: Clear Bilaterally, Breath Sounds Equal, No Distress Cardiology CV Exam: Regular, Normal Sinus Rhythm Gastrointestinal/Abdomen GI Exam: Soft, Non-Tender, Bowel Sounds Present Musculoskeletal MS Exam: Joints Intact, Normal Tone Integumentary Skin Exam: Warm, Dry Extremeties Extremities Exam: Pedal Pulses Palpable, Trace Edema Neurologic Neuro Exam: Oriented, Speech Clear, Moving All Extremities Assessment/Plan Discussed Condition With: Patient Assessment Summary: Anemia of CKD, Hypertension Problem List: (1) ESRD (end stage renal disease) on dialysis Plan: Continue M-W-F dialysis; has a functioning fistula for dialysis no IVF required ; avoid gadolinium in ESRD pts high protein diet (2) Anemia Plan: severely anemic despite multiple transfusions. 32 units given during this admission. serial Hemoglobin testing, transfuse as needed epogen with dialysis (3) GI bleed Plan: As above. Underwent bleeding scan. He may be going to IR for attempted embolization of the bleeder. (4) Hypertension, benign Plan: continue to monitor (5) Cirrhosis Plan: gi following ETOH cessation advised (6) Metabolic bone disease Plan: on Renvela, obtain intermittent phos level Plan Prognosis is guarded. Problem Qualifiers (1) GI bleed: Qualified Code: K92.2 - Gastrointestinal hemorrhage, unspecified gastrointestinal hemorrhage type (2) Cirrhosis: Rubén Browne MD Jan 09, 2017 08:26
[2017-01-09] MEDS: guaiFENesin E.R. 600 MG TAB PO SCH (08:56)
[2017-01-09] MEDS: FLUTICASONE PROPIONATE 50 MCG/ACT 16 GM NASAL SPRAY EACH NARE SCH (08:56)
[2017-01-09] MEDS: SODIUM CHLORIDE 0.9% FLUSH 5 ML FLUSH IV FLUSH SCH (08:56)
[2017-01-09] MEDS: SEVELAMER CARBONATE 800 MG TAB PO SCH ×2 (08:56→12:46)
[2017-01-09] MEDS: TRIAMCINOLONE ACETONIDE 0.1% CREAM 15 GM TOPICAL SCH (08:56)
--- NOTE | 2017-01-09 10:12 | HHI.GIFU ---
Subjective Remarks Resting in bed. Nurse reports that patient had a bloody stool overnight consisting of maroon blood. He denies any nausea, vomiting, abdominal pain. He reports that he has not had anything to eat and days and would like a diet ordered. He is requesting that this is not a clear liquid diet but solid food ( Cassia Peterson) Objective Vitals I&O Vital Signs Date Time Temp Pulse Resp B/P Pulse Ox O2 Delivery O2 Flow Rate FiO2 01/09/17 08:20 93 21 01/09/17 08:00 62 01/09/17 08:00 98.0 62 18 156/70 98 01/09/17 06:00 61 01/09/17 04:00 98.0 62 18 145/65 98 01/09/17 04:00 62 01/09/17 02:00 62 01/09/17 01:49 100 Nasal Cannula 1.00 01/09/17 00:00 62 01/09/17 00:00 98.2 62 13 118/53 100 01/08/17 22:00 57 01/08/17 20:00 97.9 55 19 121/62 97 01/08/17 20:00 56 01/08/17 12:40 84 16 113/71 100 01/08/17 12:30 79 18 92/64 99 01/08/17 12:22 97.5 81 18 116/72 100 01/08/17 11:04 96.2 67 18 108/65 97 I/O 01/08/17 01/08/17 01/08/17 01/09/17 01/09/17 01/09/17 07:00 15:00 23:00 07:00 15:00 23:00 Intake Total 150 ml 600 ml 1100 ml Output Total 1300 ml 0 ml Balance 150 ml -700 ml 1100 ml Intake Oral 0 ml 500 ml Packed Cells 600 ml 600 ml Other 150 ml Output Urine Total 0 ml 0 ml Hemodialysis 1300 ml # Voids 2 2 # Bowel Movements 2 0 1 Laboratory Laboratory Tests Test 01/08/17 21:11 Hemoglobin 6.7 Hematocrit 19.0 Imaging Last Impressions GI Bleed Scan Nuclear Medicine 01/08/17 0000 Signed Impressions: Service Date/Time: Sunday, January 08, 2017 14:36 - CONCLUSION: Hemorrhage in the left upper quadrant. It is likely in small bowel although hemorrhage at the splenic flexure and then going retrograde in the transverse colon cannot absolutely be excluded. Baudilio Pizarro MD Abdomen Ultrasound 12/28/16 0000 Signed Impressions: Service Date/Time: Wednesday, December 28, 2016 18:52 - CONCLUSION: Pronounced gallbladder wall thickening without definite stones. Ascites. End stage kidneys Baudilio Head MD Chest X-Ray 12/27/16 0000 Signed Impressions: Service Date/Time: Tuesday, December 27, 2016 21:36 - CONCLUSION: No acute disease. Warren Max MD Physical Exam HEENT: Normocephalic; atraumatic; no jaundice. CHEST: CTA CARDIAC: RRR ABDOMEN: Soft, nondistended, nontender; no hepatosplenomegaly; bowel sounds are present in all four quadrants. EXTREMITIES: No clubbing, cyanosis, or edema. SKIN: Multiple ecchymotic areas CAFETERIA CLERK: No focal deficits; alert and oriented times three. (Cassia Peterson) Assessment and Plan Plan ASSESSMENT: - Recurrent GIB. Pt has had multiple hospitalizations with extensive workup with prior EGD, Enteroscopy, Colonoscopy, and GDA embolization for bleeding duodenal ulcer in the past. He last had an enteroscopy at this facility on (12/10/16)---> small ulceration/avm third portion of the duodenum, s/p 4 clips, no active bleeding, fresh blood in stomach, duodenum, washed, no further bleeding seen. Angiogram (12/10/16)----> 1. The patient has had prior GDA embolization. This prevents antegrade evaluation and access of the feeder vessels to the third portion of the duodenum. 2. I did attempt to identify collateral vessels through the pancreatic or duodenal arcade off of the SMA but none were identified. No findings of active hemorrhage. Pt has not stayed out of the hospital long enough to have capsule endoscopy. During last hospitalization, he was transferred to tertiary for double balloon enteroscopy at [facility] for recurrent bleeding and had two double balloon enteroscopies, but the source of bleeding was not determined- per Michelle at [facility]- CM in transfer center. He has continued to have dark tarry stools since that time. He was sent to hospital for severe anemia noted at outpatient HD. HH of 4.5/13.0 on admission. S/P EGD with cauterization of AVMs (12/28/16)---- > Hiatal hernia, Gastritis, Duodenitis, Jejunal AVMs- S/P cauterization. Pt has had ongoing rectal bleeding- 4 episodes overnight, 3 so far today. Still no records from [facility], d/w nurse and she is resending release and request. S/P Rpt Enteroscopy and Colonoscopy ()---> Hiatal hernia, Nodular duodenitis, Poor colonic prep. Enteroscopy (01/05/17)---> duodenal ulcer. Rpt EGD/Colonoscopy (01/08/17)---> duodenal ulcers, bleeding duodenum, blood throughout the colon without source. S/P Bleeding scan (01/08/17)----> Hemorrhage in the left upper quadrant. It is likely in small bowel although hemorrhage at the splenic flexure and then going retrograde in the transverse colon cannot absolutely be excluded. Angiogram pending. Spoke to [facility] transfer center, where patient was last transferred. Per Michelle FAROOQ in transfer center, patient underwent two double balloon enteroscopies by Dr. Hackett and they were not able to identify the source of bleeding so they are unsure if Dr. Hackett would accept the patient back. Will try to tx pt to [facility] for further evaluation. D/W Claudia in CM. - Anemia, acute on chronic. S/P 27 units PRBC. 6.7/19.0 - ESRD on HD M/W/F - HTN, COPD per primary PLAN: - Consult CM for transfer to [facility]. D/W Claudia in CM - NPO - Angiogram today - Serial HH - Transfusions per primary - Protonix 40mg IV BID - Avoid anticoagulation - Supportive care - Capsule endoscopy as outpatient SHARLENE - Further recommendations to follow based on results of above - Pt seen and examined by Dr. Salinas and myself and this note is written on his behalf. (Cassia Peterson) Physician Comments Seen and examined with CONSUMER ATTORNEY, no active bleeding at this time. DIscussed case with Dr. Vallejo examining officer at [place] who has discussed with GI Dr. Simmons. Pt. accepted in transfer to [place] for on going refractory gi bleed. Discussed with Dr. Jonas in IR, No benefit to repeat angiography. Hopefully will be transferred out today. (Osmel Salinas MD) Cassia Peterson Jan 09, 2017 10:12 Osmel Salinas MD Jan 09, 2017 13:37
[2017-01-09] MEDS: PANTOPRAZOLE SODIUM 40 MG VIAL IV PUSH SCH (11:00)
--- NOTE | 2017-01-09 17:28 | HHI.DS ---
Discharge Summary Admission Date Dec 27, 2016 at 23:32 Discharge Date: Jan 09, 2017 Admitting Diagnosis (1) GI bleed ICD Code: K92.2 Diagnosis: Principal (2) Hypotension ICD Code: I95.9 Diagnosis: Principal (3) Anemia requiring transfusions ICD Code: D64.9 Diagnosis: Principal (4) ESRD (end stage renal disease) on dialysis ICD Code: N18.6 Diagnosis: Secondary (5) Hypertension, benign ICD Code: I10 Diagnosis: Secondary (6) Alcohol abuse ICD Code: F10.10 Diagnosis: Secondary (7) COPD (chronic obstructive pulmonary disease) ICD Code: J44.9 Diagnosis: Secondary Procedures EGD Brief History - From Admission 61-year-old male with past medical history significant for end-stage renal disease, recurrent GI bleed status post multiple EGDs enteroscopies and colonoscopies, embolization by IR, COPD, history of alcohol abuse who presented to the emergency department after being sent by Dr. Mata for anemia. In the ER patient was found to be profoundly anemic hemoglobin 4.5. 2 unit blood transfusion was ordered as the patient was hypotensive and critical care medicine was consulted for admission. ER doctor also consulted GI Dr. Giles Patient was recently admitted on December 09, 2016 for GI bleed, after work up was sent to [facility] for double balloon enteroscopy on 12/12/16 . Review GI notes from last admission shows that patient had multiple hospitalizations for GI Bleeding with extensive workup. EGD 11/11/16 showed esophagitis and gastritis. Enteroscopy 11/23/16 gastritis in the antrum. Colonoscopy with snare polypectomy 11/25/16 pathology revealed tubular adenoma. Patient was readmitted for GI bleed on 12/09/16 - Scan Nuclear Medicine (12/09/16) Abnormal activity again noted in the left side of the abdomen-most likely due to to activity from the stomach which then passes through the duodenum and into the proximal small bowel. S/P Enteroscopy 12/10/16- showed small ulceration/avm third portion of the duodenum, s/p 4 clips. Angiogram 12/10/16 showed that the patient has had prior GDA embolization. This prevents antegrade evaluation. As the patient continued to bleed, patient was discharged to [facility] for balloon enteroscopy. These records are not available for review I evaluated the patient in the ED. He appears to be in some distress. He states that he has noted melanotic stools for the last 4 days. Blood pressures in the 90s. RN is about to start the blood transfusions. I have placed the patient on 80 mg of IV Protonix followed by Protonix infusion. I have personally discussed with Dr. Giles as well. Plan is for an EGD enteroscopy and colonoscopy in a.m. CBC/BMP: 01/08/17 2111 01/06/17 1230 Significant Findings Laboratory Tests Test 01/07/17 01/08/17 01/08/17 07:40 07:08 21:11 White Blood Count 2.3 TH/MM3 2.1 TH/MM3 (4.0-11.0) (4.0-11.0) Red Blood Count 1.86 MIL/MM3 1.84 MIL/MM3 (4.50-5.90) (4.50-5.90) Hemoglobin 5.9 GM/DL 5.5 GM/DL 6.7 GM/DL (13.0-17.0) (13.0-17.0) (13.0-17.0) Hematocrit 16.4 % 16.0 % 19.0 % (39.0-51.0) (39.0-51.0) (39.0-51.0) Platelet Count 111 TH/MM3 104 TH/MM3 (150-450) (150-450) Monocytes (%) (Auto) 12.0 % 10.2 % (0.0-8.0) (0.0-8.0) Eosinophils (%) (Auto) 6.4 % (0.0-4.0) 4.7 % (0.0-4.0) Neutrophils # (Auto) 1.2 TH/MM3 1.1 TH/MM3 (1.8-7.7) (1.8-7.7) Lymphocytes # (Auto) 0.6 TH/MM3 0.7 TH/MM3 (1.0-4.8) (1.0-4.8) Platelet Estimate LOW (NORMAL) Imaging Last Impressions GI Bleed Scan Nuclear Medicine 01/08/17 0000 Signed Impressions: Service Date/Time: Sunday, January 08, 2017 14:36 - CONCLUSION: Hemorrhage in the left upper quadrant. It is likely in small bowel although hemorrhage at the splenic flexure and then going retrograde in the transverse colon cannot absolutely be excluded. Baudilio Pizarro MD Abdomen Ultrasound 12/28/16 0000 Signed Impressions: Service Date/Time: Wednesday, December 28, 2016 18:52 - CONCLUSION: Pronounced gallbladder wall thickening without definite stones. Ascites. End stage kidneys Baudilio Head MD Chest X-Ray 12/27/16 0000 Signed Impressions: Service Date/Time: Tuesday, December 27, 2016 21:36 - CONCLUSION: No acute disease. Warren Max MD PE at Discharge awake and alert, oriented x 3 anicteric lungs clear regular rhythm abdomen soft, nontender,good bowel sounds extremities no edema, LUE- AVF fistula- + bruit neuro exam non focal Pt update on day of discharge awake and alert, no acute distress understand course of action and referral Hospital Course This is a 61 yo male hx of recurrent GI bleed, COPD, ESRD on dialysis, and HTN being treated for: 1. Recurrent GI Bleed Persistent Anemia - requiring multiple blood transfusion recurrent GI bleed (Hx of duodenal ulcers/esophagitis/Gastritis) Hospitalization hx, "-GI Dr. Giles consulted. s/p EGD with cautery: Gastritis, Duodenitis , 2 AVM cauterized. on Protonix -12/30. Transfuse 2 units this morning for hemoglobin of 5.8. Still 5.8 this afternoon. Transfuse another 2 units. Restart IV pantoprazole twice a day. Plan for EGD/colonoscopy tomorrow. -12/31. Hemoglobin improved. GI performed colonoscopy. -01/01. Hemoglobin transfused again. Some dilutional leukopenia. -01/02 drop 9s-->7.5. cont to monitor Q8h. -01/03. Another acute hemoglobin drop. Transfuse 3 units. Discussed with GI. Possible colonoscopy. Continue to monitor closely. Fibrinogen level acceptable. GI reports history of small bowel AVMs seen on double-balloon enteroscopy at outside hospital.Hematology consulted. - 01/04: patient has received a total of 13 units of PRBCs. His hb is stable this morning at 8.5. Patient is NPO and will have araujo endoscopy (showed blood in duodenum no active bleeding) this am. Further recommendations by GI - 01/05: Hemoglobin 5.9. 2 units ordered. Patient has been evaluated by hematology who believes there is no underlying bleeding diatheses. If GI bleed persists advised to give FFP. Recommend obtaining a hepatitis panel, platelet function, and ultrasound of the abdomen to evaluate the liver. Von Wilibrand panel pending. Recommended that the patient may benefit from being a tertiary care center. GI has consulted general surgery for persistent duodenal bleed. post transfusion Hb/hct pending. - 01/06- dropped to 5.6 - stools with blood, no abdominal pain. GI made aware- for scope tomorrow. will transfused total 2 units RBC today - 01/08- Bleeding scan shows bleeding in the small bowel area transfused 2 units RBC overnight, 2 units HD yesterday today 01/09- for angiogram Leukopenia- WBC trending down- ff THrombocytopenia- plateletet trending down- stable this past 2 days monitor Hematology ff along with us d/w Dr. Salinas yesterday 01/08- transfer to [facility]- we have to have an accepting specialist for me to call transfer center we will know today after angiogram 2. COPD: stable w/o exacerbation. Duobens prn. 3. HTN: stable clonodine prn. 4. ESRD on dialysis: followed by [facility] MWF- on Epogen 5. Leukopenia: Monitor. Patient completed rocephin /-01/04, no signs of infection.. Hematology ff along with us 6. Hypocalcemia: Resolved. 10: [address] Salinas Transfer to [place] - He spoke with Dr. Simmons- GI specialist and accepting rotor winder - Dr. Dunn accepted patient CM informed and Transfer center informed total time spent coordinating care and discharge 90 minutes Gabby Rivers MD Jan 09, 2017 07:56 Pt Condition on Discharge: Guarded Discharge Disposition: Trnsfr to [facility] Discharge Time: > 30 minutes Discharge Instructions DIET: Follow Instructions for: Nothing By Mouth Speech Therapy-Diet Recommends: Other (NPO) Activities you can perform: Continue Bedrest Gabby Rivers MD Jan 09, 2017 17:28
--- NOTE | 2017-01-09 18:53 | PD.ONC.PN ---
Subjective Subjective Remarks Late entry pt seen in the morning. dark stools Objective Data Date Time Temp Pulse Resp B/P Pulse Ox O2 Delivery O2 Flow Rate FiO2 01/09/17 12:00 98.0 62 18 156/70 98 01/09/17 12:00 62 01/09/17 10:00 61 01/09/17 08:20 93 21 01/09/17 08:00 62 01/09/17 08:00 98.0 62 18 156/70 98 01/09/17 06:00 61 01/09/17 04:00 98.0 62 18 145/65 98 01/09/17 04:00 62 01/09/17 02:00 62 01/09/17 01:49 100 Nasal Cannula 1.00 01/09/17 00:00 62 01/09/17 00:00 98.2 62 13 118/53 100 01/08/17 22:00 57 01/08/17 20:00 97.9 55 19 121/62 97 01/08/17 20:00 56 Result Diagram: 01/08/17 2111 01/06/17 1230 Laboratory Results Laboratory Tests Test 01/08/17 21:11 Hemoglobin 6.7 GM/DL Hematocrit 19.0 % Objective Remarks GENERAL: Well-nourished, well-developed patient. SKIN: Warm and dry. HEAD: Normocephalic. EYES: No scleral icterus. No injection or drainage. NECK: Supple, trachea midline. No JVD or lymphadenopathy. LYMPHATIC: No adenopathy. CARDIOVASCULAR: Regular rate and rhythm without murmurs. RESPIRATORY: Breath sounds equal bilaterally. No accessory muscle use. GASTROINTESTINAL: Abdomen soft, non-tender, nondistended. EXTREMITIES: No cyanosis, or edema. NEUROLOGICAL: No obvious focal deficit. Awake, alert, and oriented x3. PSYCHIATRIC: Appropriate mood and affect; insight and judgment normal. Assessment/Plan Problem List: (1) GI (gastrointestinal bleed) Status: Acute Plan: GI and GS following. --s/p double balloon enteroscopy at [facility] in 11/2016 --h/o small bowel ulceration with AVMs in the third portion of the duodenum. has had four clips placed in the past. --has also undergone GDA embolization. --von Willebrand panel is pending. --platelet function assay shows normal platelet function --chronic kidney disease can contribute to bleeding diathesis (2) Leukopenia Status: Acute Plan: --monitor --possibly due to bone marrow suppression from alcoholism --ANC>500K (3) Normocytic anemia due to blood loss Status: Acute Plan: --transfuse pRBC as needed (4) Thrombocytopenia Status: Acute Plan: --is mild. --LDH and haptoglobin WNL --hepatitic panel negative --abdominal u/s shows gallbladder thickening and ascites. end stage kidneys. Plan pt is going to be transfered to [place]. PRBC . poor prognosis. Problem Qualifiers (1) GI (gastrointestinal bleed): Qualified Code: K92.2 - Gastrointestinal hemorrhage, unspecified gastrointestinal hemorrhage type Zohaib Lenz MD Jan 09, 2017 18:53
--- NOTE | 2017-01-15 13:31 | PQ ---
Physician Query Response Document PATIENT: ROSANNA CELAYA : 1955 ADMIT DATE: 12/27/2016 11:32 PM DISCH DATE: 01/09/2017 1:15 PM RESPONDING PROVIDER #: [email or web address] QUERY TEXT: Anemia Type Anemia is documented in the Medical Record. Please specify the cause (includes suspected or probable cause) Such as: -- Due to acute blood loss -- Due to chronic blood loss -- Due to iron deficiency -- Due to chronic disease -- Other, please specify The patient's Clinical Indicators include: PER H Diagnosis: (1) GI bleed (3) Anemia requiring transfusions PER PROGRESS NOTE 12/30/16 s/p EGD with cautery: Gastritis, Duodenitis , 2 AVM cauterized. -s/p Transfusion total of 7u PRBC since admission -12/30. Transfuse 2 units this morning for hemoglobin of 5.8. Still 5.8 this afternoon. Transfuse an other 2 units Query created by: Mayte Mckeon on 12/31/2016 2:44 PM RESPONSE TEXT: Acute anemia secondary to GI blood loss. This is on top of chronic anemia of renal disease. Electronically signed by: Pacheco Salgado MD 01/15/2017 1:27 PM
== END 2017-01-09 13:15 | disposition short-term general hospital (02) | DRG 344 ==
LOC: NEPC 20:39 → NEDA 23:32 → HIME 12-28 02:30 → HOCB 12-29 13:18 → HIMN 01-08 18:59 → HIME 01-08 19:20
PROVIDERS: ADMIT Internal Medicine; ATTEND Internal Medicine
PROC: 30233N1 Transfusion of Nonautologous Red Blood Cells into Peripheral Vein, Percutaneous Approach (ICD-10-PCS; 2016-12-27)
PROC: 0D5A8ZZ Destruction of Jejunum, Via Natural or Artificial Opening Endoscopic (ICD-10-PCS; principal; 2016-12-28 13:00)
PROC: 5A1D60Z (ICD-10-PCS; 2016-12-30)
PROC: 0D598ZZ Destruction of Duodenum, Via Natural or Artificial Opening Endoscopic (ICD-10-PCS; 2016-12-31)
PROC: 0DJD8ZZ Inspection of Lower Intestinal Tract, Via Natural or Artificial Opening Endoscopic (ICD-10-PCS; 2016-12-31)
PROC: 0DJ08ZZ Inspection of Upper Intestinal Tract, Via Natural or Artificial Opening Endoscopic (ICD-10-PCS; 2017-01-05)
PROC: 30233K1 Transfusion of Nonautologous Frozen Plasma into Peripheral Vein, Percutaneous Approach (ICD-10-PCS; 2017-01-06)
PROC: 0DJD8ZZ Inspection of Lower Intestinal Tract, Via Natural or Artificial Opening Endoscopic (ICD-10-PCS; 2017-01-08)
PROC: 0DJ08ZZ Inspection of Upper Intestinal Tract, Via Natural or Artificial Opening Endoscopic (ICD-10-PCS; 2017-01-08)
DX: K92.2 Gastrointestinal hemorrhage, unspecified (principal); N18.6 End stage renal disease; I12.0 Hypertensive chronic kidney disease with stage 5 chronic kidney disease or end stage renal disease; E88.89 Other specified metabolic disorders; E46 Unspecified protein-calorie malnutrition; R18.8 Other ascites; D69.6 Thrombocytopenia, unspecified; K76.6 Portal hypertension; D62 Acute posthemorrhagic anemia; Q27.33 Arteriovenous malformation of digestive system vessel; K44.9 Diaphragmatic hernia without obstruction or gangrene; K29.70 Gastritis, unspecified, without bleeding; K29.80 Duodenitis without bleeding; I95.9 Hypotension, unspecified; K74.60 Unspecified cirrhosis of liver; J44.9 Chronic obstructive pulmonary disease, unspecified; F43.20 Adjustment disorder, unspecified; M10.9 Gout, unspecified; M19.90 Unspecified osteoarthritis, unspecified site; F17.210 Nicotine dependence, cigarettes, uncomplicated; D63.1 Anemia in chronic kidney disease; E83.51 Hypocalcemia; F10.10 Alcohol abuse, uncomplicated; K64.4 Residual hemorrhoidal skin tags; K64.8 Other hemorrhoids; K26.9 Duodenal ulcer, unspecified as acute or chronic, without hemorrhage or perforation; D72.819 Decreased white blood cell count, unspecified; Z68.23 Body mass index [BMI] 23.0-23.9, adult; Z99.2 Dependence on renal dialysis; Z85.828 Personal history of other malignant neoplasm of skin; Z92.3 Personal history of irradiation; Z87.11 Personal history of peptic ulcer disease; Z86.010 Personal history of colon polyps
CPT/HCPCS: 36430; 71010; 76700; 78278; 80048; 80053; 80069; 82607; 82746; 82784; 82948; 83010; 83615; 83735; 84155; 84165; 85007; 85014; 85018; 85025; 85027; 85044; 85240; 85245; 85246; 85247; 85384; 85576; 85610; 85730; 86703; 86705; 86803; 86850; 86880; 86900; 86901; 86920; 86927; 87340; 87641; 90935; 96374; 96375; A9560; C9113; J0696; J1610; J1940; J2354; J2370; J2597; J7030; J7050; P9016; P9017; P9047; Q4081

== ENCOUNTER 2017-04-25 12:45 | Emergency (ER) | payer MEDICARE, OTHER ==
[~2017-04-25] VITALS: Ht 188 cm; Wt 67.0 kg
[~2017-04-25 12:45] MED LIST changes: -GLUCAGON 1 MG/ML VIAL IV ONE; +PROT40TA PO
[2017-04-25 12:47] VITALS: BP 96/63; PULSE 95; RESP 18; TEMP 98.2; O2SAT 96
--- NOTE | 2017-04-25 13:18 | PD ---
HPI Chief Complaint: Medical Clearance Time Seen by Provider: 13:00 Travel History International Travel<30 days: No Contact w/Intl Traveler<30days: No Traveled to known affect area: No History of Present Illness HPI 61-year-old male presents to the emergency Department with ankle rash on the right inner thigh. Patient states been present for the past several days. Patient is a dialysis patient due for dialysis today. He denies fever, chills, or other symptoms. Pain is described as burning. Pain is 6 out of 10. Patient has many allergies including Chantix, Haldol, and lithium, Risperdal, Thorazine, valproic acid, and Wellbutrin. PFSH Past Medical History Hx Anticoagulant Therapy: No Anemia: Yes Arthritis: Yes Asthma: No Autoimmune Disease: No Blood Disorders: No Bipolar Disorder: Yes Anxiety: No Depression: No Heart Rhythm Problems: No Cancer: Yes (SKIN) Cardiovascular Problems: Yes (HTN) High Cholesterol: No Chemotherapy: Yes Chest Pain: No Congestive Heart Failure: No COPD: No Cerebrovascular Accident: No Diabetes: No Dialysis: Yes (MON, WED, FRI) Diminished Hearing: No Endocrine: No Gastrointestinal Disorders: Yes (GI BLEED) Genitourinary: Yes Hypertension: Yes Immune Disorder: No Implanted Vascular Access Dvce: Yes Kidney Stones: No Musculoskeletal: Yes Neurologic: No Psychiatric: No Reproductive: No Respiratory: No Immunizations Current: Yes Radiation Therapy: Yes Renal Failure: Yes Seizures: No Sickle Cell Disease: No Sleep Apnea: No Past Surgical History Abdominal Surgery: Yes (HERNIA REPAIR, STOMACH SURGERY, LESION IN COLON CAUTERIZED 11/2016(GIBLEED)) AICD: No Arteriovenous Shunt: No Body Medical Devices: DIALYSIS SHUNT IN LEFT ARM Cardiac Surgery: No Ear Surgery: No Endocrine Surgery: No Eye Surgery: No Genitourinary Surgery: No Hysterectomy: No Insulin Pump: No Joint Replacement: No Oral Surgery: No Pacemaker: No Thoracic Surgery: No Other Surgery: Yes (NECK SURGERY/TUMOR; L FISTULA, HERNIA REPAIR) Social History Alcohol Use: Yes ("NOT MUCH") Tobacco Use: Yes Substance Use: Yes (METHADONE) Allergies-Medications (Allergen,Severity, Reaction): Coded Allergies: Chantix (Verified Allergy, Severe, Hypertension, 12/27/16) Haldol (Verified Allergy, Severe, SEIZURE, 12/27/16) Thorazine (Verified Allergy, Severe, SEIZURE, 12/27/16) Wellbutrin (Verified Allergy, Severe, SEIZURE, 12/27/16) Invega Sustenna (Verified Allergy, Unknown, 12/27/16) [place] (Verified Allergy, Unknown, 12/27/16) Risperdal (Verified Allergy, Unknown, 12/27/16) Valproic Acid (Verified Allergy, Unknown, 12/27/16) Reported Meds & Prescriptions Reported Meds & Active Scripts Active Renvela (Sevelamer Carbonate) 800 Mg Tab 2,400 Mg PO TIDAC Nephro-Leyla Rx (Vitamin B Cmplx/Vit C/Folic AC) 1 Tab 1 Cap PO DAILY Pantoprazole (Pantoprazole Sodium) 40 Mg Tab 40 Mg PO Q12HR 30 Days Reported Protonix (Pantoprazole Sodium) 40 Mg Tab 40 Mg PO DAILY Metoprolol Succinate ER 24 HR (Metoprolol Succinate) 50 Mg Tab 50 Mg PO DAILY Allergy Nasal [place] 24 Ho (Fluticasone Propionate (Nasal)) 50 Mcg/Act Spr 50 BID Guanfacine (Guanfacine HCl) 1 Mg Tab 1 Mg PO HS Do not crush, chew or divide tablet. Take with a meal. Lasix (Furosemide) 80 Mg Tab 80 Mg PO DAILY Sensipar (Cinacalcet) 30 Mg Tab 30 Mg PO DAILY [Renalsoftgel ] 1 Cap PO DAILY Review of Systems Except as stated in HPI: all other systems reviewed are Neg General / Constitutional: No: Fever, Chills Eyes: No: Visual changes HENT: No: Headaches Cardiovascular: No: Chest Pain or Discomfort Respiratory: No: Shortness of Breath Gastrointestinal: No: Abdominal Pain Genitourinary: No: Dysuria Musculoskeletal: Positive: Myalgias, Pain (see history present illness.), No: Arthralgias, Limited ROM Skin: Positive Rash Neurologic: No: Weakness Psychiatric: No: Depression Endocrine: No: Polydipsia Hematologic/Lymphatic: No: Easy Bruising Physical Exam Exam Limitations: Poor Historian Narrative GENERAL: Patient appears in no acute distress. He is noted to be eating Doritos during my exam. SKIN: Warm and dry. Patient has a couple of vesicular rashes to the inner right thigh consistent with possible shingles. HEAD: Atraumatic. Normocephalic. EYES: Pupils equal and round. No scleral icterus. No injection or drainage. ENT: No nasal bleeding or discharge. Mucous membranes pink and moist. Pharynx is clear. Airway is patent. NECK: Trachea midline. Supple and nontender. CARDIOVASCULAR: Regular rate and rhythm. RESPIRATORY: No accessory muscle use. Clear to auscultation. Breath sounds equal bilaterally. MUSCULOSKELETAL: Extremities without clubbing, cyanosis, or edema. No obvious deformities. NEUROLOGICAL: Awake and alert. No obvious cranial nerve deficits. Motor grossly within normal limits. Five out of 5 muscle strength in the arms and legs. Normal speech. PSYCHIATRIC: Appropriate mood and affect; insight and judgment normal. Data Data Last Documented VS Vital Signs Date Time Temp Pulse Resp B/P Pulse Ox O2 Delivery O2 Flow Rate FiO2 04/25/17 12:47 98.2 95 18 96/63 96 Room Air MDM Medical Decision Making Medical Screen Exam Complete: Yes Emergency Medical Condition: Yes Differential Diagnosis Painful rash. Probable zoster. Herpes. Narrative Course Patient is felt stable for discharge. Patient will be treated for zoster. Patient will be treated with acyclovir 200 mg BID with 400mg 4 hours after dialysis for 1 week. Patient given Gabapentin 300mg daily with extra 300mg 4 hours after dialysis for 1 week. Patient to follow-up with his PCP. Diagnosis Primary Impression: Zoster without complications Additional Impression: Dialysis patient Referrals: Primary Care Physician Patient Instructions: General Instructions, Shingles (DC) Additional Instructions: Patient will be treated for zoster. Patient will be treated with acyclovir 200 mg BID with 400mg 4 hours after dialysis for 1 week. Patient given Gabapentin 300mg daily with extra 300mg 4 hours after dialysis for 1 week. Patient to follow-up with his PCP. Med/Other Pt SpecificInfo: Prescription(s) given Scripts Gabapentin 300 Mg [id number] Mg PO DAILY #30 CAP Ref 0 Patient to take 300mg daily and 300mg extra 4 hours after dyalisis. Prov:Lillian Dominguez MD 04/25/17 Acyclovir 200 Mg [id number] Mg PO BID 7 Days Ref 0 200mg bid with extra 400mg 4 hours after Dialysis for 1 week. Prov:Lillian Dominguez MD 04/25/17 Disposition: 01 DISCHARGE HOME Condition: Stable Clifford Schultz Apr 25, 2017 13:18
[2017-04-25] MEDS ORDERED: ACYC200C66 PO (13:23)
[2017-04-25] MEDS ORDERED: GABA300C5 PO (13:23)
== END 2017-04-25 13:47 | disposition home or self-care (01) ==
LOC: NEPD 12:45
DX: B02.9 Zoster without complications (principal); D64.9 Anemia, unspecified; M13.80 Other specified arthritis, unspecified site; F31.9 Bipolar disorder, unspecified; I10 Essential (primary) hypertension; Z88.8 Allergy status to other drugs, medicaments and biological substances; Z79.899 Other long term (current) drug therapy
CPT/HCPCS: 99284

== ENCOUNTER 2017-05-11 12:40 | Emergency (ER) | payer MEDICARE, OTHER ==
[~2017-05-11] VITALS: Ht 188 cm; Wt 75.0 kg
[~2017-05-11 12:40] MED LIST changes: +ACYC200C66 PO; +GABA300C5 PO
[2017-05-11 12:43] VITALS: BP 183/100; PULSE 98; RESP 20; TEMP 97.2; O2SAT 95
[2017-05-11] MEDS ORDERED: ALA1CRE2 TOPICAL (13:19)
[2017-05-11] MEDS ORDERED: GABA300C5 PO (13:19)
--- NOTE | 2017-05-11 13:19 | PD ---
HPI Chief Complaint: Medication Refill Request Time Seen by Provider: 13:04 Travel History International Travel<30 days: No Contact w/Intl Traveler<30days: No Traveled to known affect area: No History of Present Illness HPI Patient is a 61-year-old male who comes in because he is requesting a refill of his gabapentin. He has no complaints today. He says he also needs a refill of the antibiotic he received last time he was here. Last time he is here he is diagnosed with shingles and received prescription for the gabapentin as well as acyclovir. Patient has no evidence of active shingles at this time. He denies any fever or chills. He is not having any pain. He has high blood pressure, but has not taken his blood pressure medicine today. PFSH Past Medical History Hx Anticoagulant Therapy: No Anemia: Yes Arthritis: Yes Asthma: No Autoimmune Disease: No Blood Disorders: No Bipolar Disorder: Yes Anxiety: No Depression: No Heart Rhythm Problems: No Cancer: Yes (SKIN) Cardiovascular Problems: Yes (HTN) High Cholesterol: No Chemotherapy: Yes Chest Pain: No Congestive Heart Failure: No COPD: No Cerebrovascular Accident: No Diabetes: No Dialysis: Yes (MON, WED, FRI) Diminished Hearing: No Endocrine: No Gastrointestinal Disorders: Yes (GI BLEED) Genitourinary: Yes Hypertension: Yes Immune Disorder: No Implanted Vascular Access Dvce: Yes Kidney Stones: No Musculoskeletal: Yes Neurologic: No Psychiatric: No Reproductive: No Respiratory: No Immunizations Current: Yes Radiation Therapy: Yes Renal Failure: Yes Seizures: No Sickle Cell Disease: No Sleep Apnea: No Past Surgical History Abdominal Surgery: Yes (HERNIA REPAIR, STOMACH SURGERY, LESION IN COLON CAUTERIZED 11/2016(GIBLEED)) AICD: No Arteriovenous Shunt: No Body Medical Devices: DIALYSIS SHUNT IN LEFT ARM Cardiac Surgery: No Ear Surgery: No Endocrine Surgery: No Eye Surgery: No Genitourinary Surgery: No Hysterectomy: No Insulin Pump: No Joint Replacement: No Oral Surgery: No Pacemaker: No Thoracic Surgery: No Other Surgery: Yes (NECK SURGERY/TUMOR; L FISTULA, HERNIA REPAIR) Social History Alcohol Use: Yes ("NOT MUCH") Tobacco Use: Yes Substance Use: Yes (METHADONE) Allergies-Medications (Allergen,Severity, Reaction): Coded Allergies: Chantix (Verified Allergy, Severe, Hypertension, 05/11/17) Haldol (Verified Allergy, Severe, SEIZURE, 05/11/17) Thorazine (Verified Allergy, Severe, SEIZURE, 05/11/17) Wellbutrin (Verified Allergy, Severe, SEIZURE, 05/11/17) Invega Sustenna (Verified Allergy, Unknown, 05/11/17) [place] (Verified Allergy, Unknown, 05/11/17) Risperdal (Verified Allergy, Unknown, 05/11/17) Valproic Acid (Verified Allergy, Unknown, 05/11/17) Reported Meds & Prescriptions Reported Meds & Active Scripts Active Gabapentin 300 Mg Cap 300 Mg PO DAILY Patient to take 300mg daily and 300mg extra 4 hours after dyalisis. Acyclovir 200 Mg Cap 200 Mg PO BID 7 Days 200mg bid with extra 400mg 4 hours after Dialysis for 1 week. Renvela (Sevelamer Carbonate) 800 Mg Tab 2,400 Mg PO TIDAC Nephro-Leyla Rx (Vitamin B Cmplx/Vit C/Folic AC) 1 Tab 1 Cap PO DAILY Pantoprazole (Pantoprazole Sodium) 40 Mg Tab 40 Mg PO Q12HR 30 Days Reported Protonix (Pantoprazole Sodium) 40 Mg Tab 40 Mg PO DAILY Metoprolol Succinate ER 24 HR (Metoprolol Succinate) 50 Mg Tab 50 Mg PO DAILY Guanfacine (Guanfacine HCl) 1 Mg Tab 1 Mg PO HS Do not crush, chew or divide tablet. Take with a meal. Lasix (Furosemide) 80 Mg Tab 80 Mg PO DAILY Sensipar (Cinacalcet) 30 Mg Tab 30 Mg PO DAILY [Renalsoftgel ] 1 Cap PO DAILY Review of Systems General / Constitutional: No: Fever, Chills HENT: No: Headaches, Lightheadedness Cardiovascular: No: Chest Pain or Discomfort Respiratory: No: Shortness of Breath Gastrointestinal: No: Nausea, Vomiting Musculoskeletal: No: Myalgias, Pain Skin: No Itching, No Change in Pigmentation Neurologic: No: Weakness, Dizziness Physical Exam Narrative GENERAL: Awake and alert, in no acute distress. SKIN: Focused skin assessment warm/dry. Eczema-type rash to the inner thigh. No evidence of infection. HEAD: Atraumatic. Normocephalic. EYES: Pupils equal and round. No scleral icterus. No injection or drainage. ENT: Mucous membranes pink and moist. NECK: Trachea midline. No JVD. CARDIOVASCULAR: Regular rate and rhythm. No murmur appreciated. RESPIRATORY: No accessory muscle use. Clear to auscultation. Breath sounds equal bilaterally. MUSCULOSKELETAL: No obvious deformities. No clubbing. No cyanosis. No edema. NEUROLOGICAL: Awake and alert. No obvious cranial nerve deficits. Motor grossly within normal limits. Normal speech. Data Data Last Documented VS Vital Signs Date Time Temp Pulse Resp B/P Pulse Ox O2 Delivery O2 Flow Rate FiO2 05/11/17 12:43 97.2 98 20 183/100 95 Room Air MDM Medical Decision Making Medical Screen Exam Complete: Yes Emergency Medical Condition: Yes Medical Record Reviewed: Yes Differential Diagnosis Medication refill versus eczema versus dry skin Narrative Course Patient is a 61-year-old male comes in requesting a refill of his gabapentin. He has no complaints at this time. Exam shows an eczema type rash to his right inner thigh. Patient will be given prescription for a few gabapentin. He is advised to call his primary doctor tomorrow. Given a prescription for hydrocortisone cream to apply to his skin. Advised to apply moisturizing cream daily. Advised follow-up with his primary care doctor. Advised to return to the ED as needed for any worsening symptoms. Diagnosis Primary Impression: Medication refill Additional Impression: Rash Patient Instructions: Eczema (ED), General Instructions, Peripheral Neuropathy (ED) Additional Instructions: Follow-up with her primary care doctor. Apply moisturizing cream to her skin. Use the hydrocortisone as needed for the rash on her inner thigh. Her into the emergency department as needed for any worsening symptoms. Scripts Hydrocortisone (Topical) ([place] Topical)1% Cream1 Applic TOPICAL DIRECTED #1 TUBE Ref 0 Prov:Sonia Obrien MD 05/11/17 Gabapentin 300 Mg Tit915 Mg PO HS #10 CAP Ref 0 Prov:Sonia Obrien MD 05/11/17 Disposition: 01 DISCHARGE HOME Condition: Stable Sonia Obrien MD May 11, 2017 13:19
== END 2017-05-11 13:33 | disposition home or self-care (01) ==
LOC: NEPD 12:40
DX: Z76.0 Encounter for issue of repeat prescription (principal); R21 Rash and other nonspecific skin eruption; I10 Essential (primary) hypertension; D64.9 Anemia, unspecified; M13.80 Other specified arthritis, unspecified site; F31.9 Bipolar disorder, unspecified; Z79.899 Other long term (current) drug therapy; Z72.0 Tobacco use; Z88.8 Allergy status to other drugs, medicaments and biological substances
CPT/HCPCS: 99284

== ENCOUNTER 2017-06-12 15:30 | Emergency (ER) | payer MEDICARE, OTHER ==
[~2017-06-12] VITALS: Ht 188 cm; Wt 77.2 kg
[~2017-06-12 15:30] MED LIST changes: +ALA1CRE2 TOPICAL; -FLUT1SPR22
[2017-06-12] MEDS ORDERED: SODIUM CHLORIDE 0.9% FLUSH 10 ML FLUSH IVF PRN (16:00)
--- NOTE | 2017-06-12 16:04 | PD ---
HPI Chief Complaint: seizure, chest pain, abdominal pain Time Seen by Provider: 16:00 Travel History International Travel<30 days: No Contact w/Intl Traveler<30days: No History of Present Illness HPI 62-year-old male presents to the emergency department via EMS for evaluation of having a seizure yesterday, chest pain, abdominal pain. He is a dialysis patient. 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 vee not Land[place]. He got hemodialysis yesterday. He states that after leaving dialysis, he had a seizure at home. He states that he does not have a history of seizures. He stated that since then, he has been having midsternal and left-sided chest pain as well as lower abdominal pain. Patient states that he has had some alcoholic beverages today. He is also complaining of lower abdominal pain. Patient does not know the rest of his medical history does not know what medications he is currently on. He receives dialysis Friday, Friday, Friday. He denies any history of chest pain or abdominal pain. PFSH Past Medical History Hx Anticoagulant Therapy: No Anemia: Yes Arthritis: Yes Asthma: No Autoimmune Disease: No Blood Disorders: No Bipolar Disorder: Yes Anxiety: No Depression: No Heart Rhythm Problems: No Cancer: Yes (SKIN) Cardiovascular Problems: Yes (HTN) High Cholesterol: No Chemotherapy: Yes Chest Pain: No Congestive Heart Failure: No COPD: No Cerebrovascular Accident: No Diabetes: No Dialysis: Yes (FRI, FRI, FRI) Diminished Hearing: No Endocrine: No Gastrointestinal Disorders: Yes (GI BLEED) Genitourinary: Yes Hypertension: Yes Immune Disorder: No Implanted Vascular Access Dvce: Yes Kidney Stones: No Musculoskeletal: Yes Neurologic: No Psychiatric: No Reproductive: No Respiratory: No Immunizations Current: Yes Radiation Therapy: Yes Renal Failure: Yes Seizures: No Sickle Cell Disease: No Sleep Apnea: No Past Surgical History Abdominal Surgery: Yes (HERNIA REPAIR, STOMACH SURGERY, LESION IN COLON CAUTERIZED 11/2016(GIBLEED)) AICD: No Arteriovenous Shunt: No Body Medical Devices: DIALYSIS SHUNT IN LEFT ARM Cardiac Surgery: No Ear Surgery: No Endocrine Surgery: No Eye Surgery: No Genitourinary Surgery: No Hysterectomy: No Insulin Pump: No Joint Replacement: No Oral Surgery: No Pacemaker: No Thoracic Surgery: No Other Surgery: Yes (NECK SURGERY/TUMOR; L FISTULA, HERNIA REPAIR) Social History Alcohol Use: Yes ("NOT MUCH") Tobacco Use: Yes Substance Use: Yes (METHADONE) Allergies-Medications (Allergen,Severity, Reaction): Coded Allergies: bupropion (Unverified Allergy, Severe, SEIZURE, 06/12/17) chlorpromazine (Unverified Allergy, Severe, SEIZURE, 06/12/17) haloperidol (Unverified Allergy, Severe, SEIZURE, 06/12/17) varenicline (Unverified Allergy, Severe, Hypertension, 06/12/17) lithium (Unverified Allergy, Unknown, 06/12/17) paliperidone (Unverified Allergy, Unknown, 06/12/17) risperidone (Unverified Allergy, Unknown, 06/12/17) valproic acid (Unverified Allergy, Unknown, 06/12/17) Reported Meds & Prescriptions Reported Meds & Active Scripts Active Ala-Filipe Topical (Hydrocortisone (Topical)) 1% Cream 1 Applic TOPICAL DIRECTED Gabapentin 300 Mg Cap 300 Mg PO HS Gabapentin 300 Mg Cap 300 Mg PO DAILY Patient to take 300mg daily and 300mg extra 4 hours after dyalisis. Acyclovir 200 Mg Cap 200 Mg PO BID 7 Days 200mg bid with extra 400mg 4 hours after Dialysis for 1 week. Renvela (Sevelamer Carbonate) 800 Mg Tab 2,400 Mg PO TIDAC Nephro-Leyla Rx (Vitamin B Cmplx/Vit C/Folic AC) 1 Tab 1 Cap PO DAILY Pantoprazole (Pantoprazole Sodium) 40 Mg Tab 40 Mg PO Q12HR 30 Days Reported Protonix (Pantoprazole Sodium) 40 Mg Tab 40 Mg PO DAILY Metoprolol Succinate ER 24 HR (Metoprolol Succinate) 50 Mg Tab 50 Mg PO DAILY Guanfacine (Guanfacine HCl) 1 Mg Tab 1 Mg PO HS Do not crush, chew or divide tablet. Take with a meal. Lasix (Furosemide) 80 Mg Tab 80 Mg PO DAILY Sensipar (Cinacalcet) 30 Mg Tab 30 Mg PO DAILY [Renalsoftgel ] 1 Cap PO DAILY Review of Systems Except as stated in HPI: all other systems reviewed are Neg Physical Exam Narrative GENERAL: Well-nourished, well-developed male patient, afebrile. SKIN: Focused skin assessment warm/dry. Patient has AV fistula to the left upper arm with positive bruit and thrill. HEAD: Normocephalic. Atraumatic EYES: No scleral icterus. No injection or drainage. NECK: Supple, trachea midline. No JVD or lymphadenopathy. CARDIOVASCULAR: Regular rate and rhythm without murmurs, gallops, or rubs. RESPIRATORY: Breath sounds equal bilaterally. No accessory muscle use. Lungs sounds are clear to auscultation. GASTROINTESTINAL: Abdomen soft and nondistended. Mild lower abdominal pain to palpation. MUSCULOSKELETAL: No cyanosis, or edema. BACK: Nontender without obvious deformity. No CVA tenderness. Data Data Last Documented VS Vital Signs Date Time Temp Pulse Resp B/P Pulse Ox O2 Delivery O2 Flow Rate FiO2 06/12/17 17:53 98.0 76 14 123/70 96 Orders Ckmb (Isoenzyme) Profile (06/12/17 15:56) Complete Blood Count With Diff (06/12/17 15:56) Comprehensive Metabolic Panel (06/12/17 15:56) Magnesium (Mg) (06/12/17 15:56) Prothrombin Time / Inr (Pt) (06/12/17 15:56) Act Partial Throm Time (Ptt) (06/12/17 15:56) Troponin I (06/12/17 15:56) Lipase (06/12/17 15:56) Chest, Single Ap (06/12/17 15:56) Ecg Monitoring (06/12/17 15:56) Bilateral Bp Monitoring (06/12/17 15:56) Iv Access Insert/Monitor (06/12/17 15:56) Oximetry (06/12/17 15:56) Oxygen Administration (06/12/17 15:56) Sodium Chloride 0.9% Flush (Ns Flush) (06/12/17 16:00) Ct Brain W/O Iv Contrast(Rout) (06/12/17 ) Ct Abd/Pel W/O Iv Contrast (06/12/17 ) Alcohol (Ethanol) (06/12/17 15:56) Electrocardiogram (06/12/17 17:32) Labs Laboratory Tests Test 06/12/17 17:20 White Blood Count 2.6 TH/MM3 Red Blood Count 3.13 MIL/MM3 Hemoglobin 10.3 GM/DL Hematocrit 30.5 % Mean Corpuscular Volume 97.3 FL Mean Corpuscular Hemoglobin 32.9 PG Mean Corpuscular Hemoglobin 33.8 % Concent Red Cell Distribution Width 17.8 % Platelet Count 168 TH/MM3 Mean Platelet Volume 8.1 FL Neutrophils (%) (Auto) 57.3 % Lymphocytes (%) (Auto) 30.3 % Monocytes (%) (Auto) 10.6 % Eosinophils (%) (Auto) 1.0 % Basophils (%) (Auto) 0.8 % Neutrophils # (Auto) 1.5 TH/MM3 Lymphocytes # (Auto) 0.8 TH/MM3 Monocytes # (Auto) 0.3 TH/MM3 Eosinophils # (Auto) 0.0 TH/MM3 Basophils # (Auto) 0.0 TH/MM3 CBC Comment DIFF FINAL Differential Comment Prothrombin Time 10.0 SEC Prothromb Time International 0.9 RATIO Ratio Activated Partial 30.6 SEC Thromboplast Time Sodium Level 135 MEQ/L Potassium Level 3.0 MEQ/L Chloride Level 99 MEQ/L Carbon Dioxide Level 24.1 MEQ/L Anion Gap 12 MEQ/L Blood Urea Nitrogen 17 MG/DL Creatinine 4.30 MG/DL Estimat Glomerular Filtration 14 ML/MIN Rate Random Glucose 73 MG/DL Calcium Level 7.3 MG/DL Protein Corrected Calcium 7.5 MG/DL Magnesium Level 2.2 MG/DL Total Bilirubin 0.3 MG/DL Aspartate Amino Transf 64 U/L (AST/SGOT) Alanine Aminotransferase 22 U/L (ALT/SGPT) Alkaline Phosphatase 329 U/L Total Creatine Kinase 86 U/L Troponin I 0.04 NG/ML Total Protein 6.8 GM/DL Albumin 2.8 GM/DL Lipase 166 U/L Ethyl Alcohol Level 300 MG/DL MDM Medical Decision Making Medical Screen Exam Complete: Yes Emergency Medical Condition: Yes Medical Record Reviewed: Yes Differential Diagnosis New-onset seizure versus alcohol intoxication versus ACS versus pneumonia versus pancreatitis versus diverticulitis Narrative Course 62-year-old male with end-stage renal disease on hemodialysis presents to the emergency room in for multiple complaints including seizure, chest pain, abdominal pain. EKG, CBC, CMP, lipase, magnesium, CK, troponin, PTT, PT/INR, alcohol level are ordered and pending. Chest x-ray, CT of the brain, CT the abdomen/pelvis without contrast are ordered and pending. Workup is initiated in triage. Patient was transferred to [facility] for further evaluation and disposition. Patient left AGAINST MEDICAL ADVICE before workup was completed. AMA: The risks of leaving against medical advice without further evaluation treatment were discussed with the patient. These risks include cardiac dysfunction, cardiac dysrhythmia, possible heart attack, possible stroke or . The patient indicated understanding of these risks and appeared to have the capacity to make this decision. Diagnosis Primary Impression: Left against medical advice Additional Impressions: Chest pain Qualified Code: R07.9 - Chest pain, unspecified type Abdominal pain Qualified Code: R10.9 - Abdominal pain, unspecified abdominal location Disposition: 07 AGAINST MEDICAL ADVICE Yoselin Becerril Jun 12, 2017 16:03
--- NOTE | 2017-06-12 16:34 | RADRPT ---
EXAM DATE/TIME: 06/12/2017 16:12 [facility] COMPARISON: CHEST SINGLE AP, December 27, 2016, 21:36. INDICATIONS : Chest pain and abdominal pain. MEDICAL HISTORY : Hypertension. Arthritis. GI bleed. Renal failure. SURGICAL HISTORY : Hernia repair. Dialysis. Neck surgery. Left AV fistula. ENCOUNTER: Initial ACUITY: 1 day PAIN SCORE: 5/10 LOCATION: Bilateral chest FINDINGS: The heart is enlarged. Left basilar streakiness is noted consistent with atelectasis and/or scarring. The right lung is clear. CONCLUSION: 1. Cardiomegaly. 2. Left basilar streakiness consistent with atelectasis and/or fibrotic scarring. Sunil Kaplan MD on June 12, 2017 at 16:26 Board Certified Radiologist. This report was verified electronically.
--- NOTE | 2017-06-12 17:16 | RADRPT ---
EXAM DATE/TIME: 06/12/2017 16:45 [facility] COMPARISON: CT BRAIN W/O CONTRAST, December 30, 2014, 14:49. CT ABDOMEN & PELVIS W/O CONTRAST, November 11, 2016, 3: 47. INDICATIONS : Head injury due to seizure. RADIATION DOSE: 56.35 CTDIvol (mGy) MEDICAL HISTORY : Hypertension. Renal failure, chronic. GI Bleed, Dialysis, Skin cancer. SURGICAL HISTORY : Stomach sx, Hernia repair ENCOUNTER: Initial ACUITY: 1 day PAIN SCALE: 3/10 LOCATION: Bilateral cranial TECHNIQUE: Multiple contiguous axial images were obtained of the head. Using automated exposure control and adj ustment of the mA and/or kV according to patient size, radiation dose was kept as low as reasonably a chievable to obtain optimal diagnostic quality images. DICOM format image data is available electro nically for review and comparison. FINDINGS: CEREBRUM: The ventricles are normal for age. No evidence of midline shift, mass lesion, hemorrhage or acute in farction. There is an old appearing infarct involving the right caudate nucleus. This is stable lachelle red to the previous examination. No extra-axial fluid collections are seen. POSTERIOR FOSSA: The cerebellum and brainstem are intact. The 4th ventricle is midline. The cerebellopontine angle i s unremarkable. EXTRACRANIAL: The visualized portion of the orbits is intact. SKULL: The calvaria is intact. No evidence of skull fracture. CONCLUSION: 1. Old area of lacunar infarct involving the right caudate nucleus. No acute intracranial abnormality is seen. Deyvi Fragoso MD on June 12, 2017 at 17:13 Board Certified Radiologist. This report was verified electronically.
--- NOTE | 2017-06-12 17:28 | RADRPT ---
EXAM DATE/TIME: 06/12/2017 16:48 [facility] COMPARISON: CT ABDOMEN & PELVIS W/O CONTRAST, November 11, 2016, 3:47. INDICATIONS : Upper abdomen pain for two days. ORAL CONTRAST: No oral contrast ingested. RADIATION DOSE: 9.96 CTDIvol (mGy) MEDICAL HISTORY : Hypertension. Renal failure, chronic. Dialysis, Anemia, Skin cancer. SURGICAL HISTORY : Hernia repair, stomach sx. ENCOUNTER: Initial ACUITY: 2 days PAIN SCALE: 3/10 LOCATION: Bilateral upper quadrant TECHNIQUE: Volumetric scanning of the abdomen and pelvis was performed. Using automated exposure control and ad justment of the mA and/or kV according to patient size, radiation dose was kept as low as reasonably achievable to obtain optimal diagnostic quality images. DICOM format image data is available electro nically for review and comparison. FINDINGS: LOWER LUNGS: There is patchy atelectasis in the dependent portions of the lung bases left greater than right. LIVER: Homogeneous density without lesion. There is no dilation of the biliary tree. No calcified gallston es. There is a small amount ascitic fluid surrounding the liver margins which is improved from the pr ior study. SPLEEN: Normal size without lesion. PANCREAS: Within normal limits. KIDNEYS: The kidneys are stable in appearance with mild atrophy and chronic changes with multiple small stable cystic structures again noted. ADRENAL GLANDS: Within normal limits. VASCULAR: Atherosclerotic changes with calcification and dilatation. There is no focal aneurysm. BOWEL/MESENTERY: No oral contrast was given limiting sensitivity. The stomach is unremarkable in appearance. There are multiple loops of nondilated small bowel small air-fluid levels there is no free air. Prior emboliza tion of the gastro-duodenal artery with coils. ABDOMINAL WALL: Within normal limits. RETROPERITONEUM: There is no lymphadenopathy. BLADDER: No wall thickening or mass. REPRODUCTIVE: Within normal limits. INGUINAL: There is no lymphadenopathy or hernia. MUSCULOSKELETAL: Moderate to severe osteopenia and mild degenerative change. There is a mild scoliosis. CONCLUSION: 1. Nonspecific, nonobstructive bowel gas pattern which could represent mild ileus or gastroenteritis. There is no free air. 2. Small amount of ascitic fluid which is improved from the prior study. 3. Evidence of chronic renal failure with atrophy and numerous cystic lesions. Kyle Hicks MD on June 12, 2017 at 17:21 Board Certified Radiologist. This report was verified electronically.
[2017-06-12 17:53] VITALS: BP 123/70; PULSE 76; RESP 14; TEMP 98; O2SAT 96
[2017-06-12 17:57] LABS: AUTOMATED NEUTROPHIL # 1.5 TH/MM3 (1.8-7.7); BASOPHIL % 0.8 % (0.0-2.0); HEMATOCRIT 30.5 % (39.0-51.0); HEMO FLAGS DIFF FINAL; LYMPH % 30.3 % (9.0-44.0); LYMPHOCYTE # 0.8 TH/MM3 (1.0-4.8); MEAN CELL VOLUME 97.3 FL (80.0-100.0); MEAN CORPUSCULAR HEMOGLOBIN 32.9 PG (27.0-34.0); MEAN CORPUSCULAR HGB CONC 33.8 % (32.0-36.0); MONO % 10.6 % (0.0-8.0); NEUT % 57.3 % (16.0-70.0); PLATELET COUNT 168 TH/MM3 (150-450); RED BLOOD COUNT 3.13 MIL/MM3 (4.50-5.90); RED CELL DISTRIBUTION WIDTH 17.8 % (11.6-17.2); WHITE BLOOD COUNT 2.6 TH/MM3 (4.0-11.0)
[2017-06-12 18:15] LABS: APTT (PATIENT) 30.6 SEC (24.3-30.1); INTERNATIONAL NORMALIZED RATIO 0.9 RATIO
[2017-06-12 18:33] LABS: BICARBONATE 24.1 MEQ/L (21.0-32.0); CALCIUM-PROTEIN CORRECTED 7.5 MG/DL (8.5-10.1); MAGNESIUM 2.2 MG/DL (1.5-2.5); TOTAL BILIRUBIN ADULT 0.3 MG/DL (0.2-1.0)
--- NOTE | 2017-06-13 14:07 | EKG ---
Date Performed: 06/12/2017 Time Performed: 17:32:36 PTAGE: 62 years EKG: Sinus rhythm WITH FIRST DEGREE AV BLOCK POSSIBLE LEFT ATRIAL ENLARGEMENT MARKED LEFT AXIS DEVIATION INTRAVENTRICU LAR CONDUCTION DELAY Nonspecific ST T changes in the anterolateral leads Compared to prior tracing no significant change ABNORMAL ECG PREVIOUS TRACING : 11/22/2016 06.45 DOCTOR: Maciel Rob Interpretating Date/Time 06/13/2017 14:05:44
[2017-06-13] MEDS ORDERED: ZITHTAB PO (23:36)
== END 2017-06-12 19:18 | disposition left against medical advice (07) ==
LOC: NEDAMB 15:30
DX: R07.9 Chest pain, unspecified (principal); R10.30 Lower abdominal pain, unspecified; I12.0 Hypertensive chronic kidney disease with stage 5 chronic kidney disease or end stage renal disease; N18.6 End stage renal disease; R56.9 Unspecified convulsions; D64.9 Anemia, unspecified; M13.88 Other specified arthritis, other site; F31.9 Bipolar disorder, unspecified; I10 Essential (primary) hypertension
CPT/HCPCS: 70450; 71010; 74176; 80053; 80307; 82550; 83690; 83735; 84484; 85025; 85610; 85730; 93005; 99285

== ENCOUNTER 2017-06-13 21:46 | Emergency (ER) | payer MEDICARE, OTHER ==
[~2017-06-13] VITALS: Ht 188 cm; Wt 72.0 kg
[2017-06-13 22:01] VITALS: BP 173/89; PULSE 68; RESP 24; TEMP 98.7; O2SAT 97
--- NOTE | 2017-06-13 22:02 | PD ---
HPI Chief Complaint: Respiratory Symptoms Time Seen by Provider: 22:01 Travel History International Travel<30 days: No Contact w/Intl Traveler<30days: No Traveled to known affect area: No History of Present Illness HPI 62-year-old male was brought to the emergency room by EMS for shortness of breath. Patient has history of end-stage renal disease and was dialyzed today. But then he started to feel weak and started having respiratory distress. Patient has also been coughing he said. He is a smoker. His vital signs were stable upon arrival. He did not appear to be any significant respiratory distress. On room air he was saturating 95-96%. [facility] Past Medical History Narrative Medical List of her past medical, surgical, social and family history was reviewed from the nursing note. Hx Anticoagulant Therapy: No Anemia: Yes Arthritis: Yes Asthma: No Autoimmune Disease: No Blood Disorders: No Bipolar Disorder: Yes Anxiety: No Depression: No Heart Rhythm Problems: No Cancer: Yes (SKIN) Cardiovascular Problems: Yes (HTN) High Cholesterol: No Chemotherapy: Yes Chest Pain: No Congestive Heart Failure: No COPD: No Cerebrovascular Accident: No Diabetes: No Dialysis: Yes (MON, WED, FRI) Diminished Hearing: No Endocrine: No Gastrointestinal Disorders: Yes (GI BLEED) Genitourinary: Yes Hypertension: Yes Immune Disorder: No Implanted Vascular Access Dvce: Yes Kidney Stones: No Musculoskeletal: Yes Neurologic: No Psychiatric: No Reproductive: No Respiratory: No Immunizations Current: Yes Radiation Therapy: Yes Renal Failure: Yes Seizures: No Sickle Cell Disease: No Sleep Apnea: No Past Surgical History Abdominal Surgery: Yes (HERNIA REPAIR, STOMACH SURGERY, LESION IN COLON CAUTERIZED 11/2016(GIBLEED)) AICD: No Arteriovenous Shunt: No Body Medical Devices: DIALYSIS SHUNT IN LEFT ARM Cardiac Surgery: No Ear Surgery: No Endocrine Surgery: No Eye Surgery: No Genitourinary Surgery: No Hysterectomy: No Insulin Pump: No Joint Replacement: No Oral Surgery: No Pacemaker: No Thoracic Surgery: No Other Surgery: Yes (NECK SURGERY/TUMOR; L FISTULA, HERNIA REPAIR) Social History Alcohol Use: Yes ("NOT MUCH") Tobacco Use: Yes Substance Use: Yes (METHADONE) Allergies-Medications (Allergen,Severity, Reaction): Coded Allergies: bupropion (Unverified Allergy, Severe, SEIZURE, 06/12/17) chlorpromazine (Unverified Allergy, Severe, SEIZURE, 06/12/17) haloperidol (Unverified Allergy, Severe, SEIZURE, 06/12/17) varenicline (Unverified Allergy, Severe, Hypertension, 06/12/17) lithium (Unverified Allergy, Unknown, 06/12/17) paliperidone (Unverified Allergy, Unknown, 06/12/17) risperidone (Unverified Allergy, Unknown, 06/12/17) valproic acid (Unverified Allergy, Unknown, 06/12/17) Comments List of his allergies reviewed from the nursing note. Reported Meds & Prescriptions Reported Meds & Active Scripts Active Zithromax Z-Alonzo (Azithromycin) 250 Mg Dspk 250 Mg PO DIRECTED 500 MG (2 tabs) day 1, then 1 tab days 2-5. Ala-Filipe Topical (Hydrocortisone (Topical)) 1% Cream 1 Applic TOPICAL DIRECTED Acyclovir 200 Mg Cap 200 Mg PO BID 7 Days 200mg bid with extra 400mg 4 hours after Dialysis for 1 week. Renvela (Sevelamer Carbonate) 800 Mg Tab 2,400 Mg PO TIDAC Nephro-Leyla Rx (Vitamin B Cmplx/Vit C/Folic AC) 1 Tab 1 Cap PO DAILY Pantoprazole (Pantoprazole Sodium) 40 Mg Tab 40 Mg PO Q12HR 30 Days Reported Protonix (Pantoprazole Sodium) 40 Mg Tab 40 Mg PO DAILY Metoprolol Succinate ER 24 HR (Metoprolol Succinate) 50 Mg Tab 50 Mg PO DAILY Lasix (Furosemide) 80 Mg Tab 80 Mg PO DAILY Sensipar (Cinacalcet) 30 Mg Tab 30 Mg PO DAILY [Renalsoftgel ] 1 Cap PO DAILY Narrative Medication List of his home medications reviewed from the nursing note. Review of Systems Except as stated in HPI: all other systems reviewed are Neg Physical Exam Narrative GENERAL: Awake, alert, moderate distress SKIN: Focused skin assessment warm/dry. Patient has a shunt on his left upper extremity that has a thrill and a bruit HEAD: Atraumatic. Normocephalic. EYES: Pupils equal and round. No scleral icterus. No injection or drainage. ENT: No nasal bleeding or discharge. Mucous membranes pink and moist. NECK: Trachea midline. No JVD. CARDIOVASCULAR: Regular rate and rhythm. No murmur appreciated. RESPIRATORY: No accessory muscle use. Clear to auscultation. Breath sounds equal bilaterally. GASTROINTESTINAL: Abdomen soft, non-tender, nondistended. Hepatic and splenic margins not palpable. MUSCULOSKELETAL: No obvious deformities. No clubbing. No cyanosis. No edema. NEUROLOGICAL: Awake and alert. No obvious cranial nerve deficits. Motor grossly within normal limits. Normal speech. PSYCHIATRIC: Appropriate mood and affect; insight and judgment normal. Data Data Last Documented VS Orders Orders Complete Blood Count With Diff (06/13/17 22:06) Comprehensive Metabolic Panel (06/13/17 22:06) Prothrombin Time / Inr (Pt) (06/13/17 22:06) Troponin I (06/13/17 22:06) Blood Culture (06/13/17 22:06) Iv Access Insert/Monitor (06/13/17 22:06) Electrocardiogram (06/13/17 22:06) Ecg Monitoring (06/13/17 22:06) Oximetry (06/13/17 22:06) Oxygen Administration (06/13/17 22:06) Chest, Single Ap (06/13/17 22:06) Sodium Chloride 0.9% Flush (Ns Flush) (06/13/17 22:15) Ceftriaxone Inj (Rocephin Inj) (06/13/17 23:30) Azithromycin Inj (Zithromax Inj) (06/13/17 23:30) Potassium Chloride (Kcl) (06/13/17 23:30) Ondansetron Inj (Zofran Inj) (06/14/17 01:45) Labs Laboratory Tests Test 06/13/17 22:10 White Blood Count 5.8 TH/MM3 Red Blood Count 3.19 MIL/MM3 Hemoglobin 10.5 GM/DL Hematocrit 30.5 % Mean Corpuscular Volume 95.7 FL Mean Corpuscular Hemoglobin 32.9 PG Mean Corpuscular Hemoglobin Concent 34.4 % Red Cell Distribution Width 17.4 % Platelet Count 141 TH/MM3 Mean Platelet Volume 8.0 FL Neutrophils (%) (Auto) 87.3 % Lymphocytes (%) (Auto) 4.1 % Monocytes (%) (Auto) 8.2 % Eosinophils (%) (Auto) 0.0 % Basophils (%) (Auto) 0.4 % Neutrophils # (Auto) 5.1 TH/MM3 Lymphocytes # (Auto) 0.2 TH/MM3 Monocytes # (Auto) 0.5 TH/MM3 Eosinophils # (Auto) 0.0 TH/MM3 Basophils # (Auto) 0.0 TH/MM3 CBC Comment DIFF FINAL Differential Comment Prothrombin Time 10.8 SEC Prothromb Time International Ratio 1.0 RATIO Blood Urea Nitrogen 11 MG/DL Creatinine 2.52 MG/DL Random Glucose 120 MG/DL Total Protein 7.1 GM/DL Albumin 3.1 GM/DL Calcium Level 8.4 MG/DL Alkaline Phosphatase 342 U/L Aspartate Amino Transf (AST/SGOT) 77 U/L Alanine Aminotransferase (ALT/SGPT) 24 U/L Total Bilirubin 0.7 MG/DL Sodium Level 135 MEQ/L Potassium Level 3.1 MEQ/L Chloride Level 98 MEQ/L Carbon Dioxide Level 30.5 MEQ/L Anion Gap 7 MEQ/L Estimat Glomerular Filtration Rate 26 ML/MIN Troponin I 0.04 NG/ML [facility] Medical Decision Making Medical Screen Exam Complete: Yes Emergency Medical Condition: Yes Medical Record Reviewed: Yes Interpretation(s) Twelve-lead EKG was reviewed by me. Normal sinus rhythm, left axis deviation, LVH, LV strain. Heart rate of 71 bpm. Differential Diagnosis Pneumonia, congestive heart failure Narrative Course 11:35 PM blood test results are back. Potassium is low and I have ordered for replacement. Chest x-ray shows a possible early pneumonia and given his symptoms I'm treating it. I've given him IV Rocephin and IV Zithromax. I intend to discharge him home on by mouth Zithromax a Z-Alonzo. Procedures EKG Prior to Arrival: No Diagnosis Primary Impression: Pneumonia Additional Impressions: End stage renal disease Dependent on hemodialysis Hypokalemia Referrals: Primary Care Physician Additional Instructions: Please return to the ER if the condition worsens or any other new concerns. Take the medication as per the prescription direction. Follow-up with your primary care in couple days. Med/Other Pt SpecificInfo: Prescription(s) given Scripts Azithromycin (Zithromax Z-Alonzo) 250 Mg Dspk 250 MG PO DIRECTED for Infection, #1 DSPK 0 Refills 500 MG (2 tabs) day 1, then 1 tab days 2-5. Prov: Zoey Perez MD 06/13/17 Disposition: 01 DISCHARGE HOME Condition: Stable Zoey Perez MD Jun 13, 2017 22:02
[2017-06-13 22:08] VITALS: O2SAT 95
[2017-06-13] MEDS ORDERED: SODIUM CHLORIDE 0.9% FLUSH 10 ML FLUSH IVF PRN (22:15)
[2017-06-13 22:32] LABS: AUTOMATED NEUTROPHIL # 5.1 TH/MM3 (1.8-7.7); BASOPHIL % 0.4 % (0.0-2.0); HEMATOCRIT 30.5 % (39.0-51.0); HEMO FLAGS DIFF FINAL; LYMPH % 4.1 % (9.0-44.0); LYMPHOCYTE # 0.2 TH/MM3 (1.0-4.8); MEAN CELL VOLUME 95.7 FL (80.0-100.0); MEAN CORPUSCULAR HEMOGLOBIN 32.9 PG (27.0-34.0); MEAN CORPUSCULAR HGB CONC 34.4 % (32.0-36.0); MONO % 8.2 % (0.0-8.0); NEUT % 87.3 % (16.0-70.0); PLATELET COUNT 141 TH/MM3 (150-450); RED BLOOD COUNT 3.19 MIL/MM3 (4.50-5.90); RED CELL DISTRIBUTION WIDTH 17.4 % (11.6-17.2); WHITE BLOOD COUNT 5.8 TH/MM3 (4.0-11.0)
--- NOTE | 2017-06-13 22:43 | RADRPT ---
EXAM DATE/TIME: 06/13/2017 22:23 [facility] COMPARISON: CHEST SINGLE AP, June 12, 2017, 16:12. INDICATIONS : Shortness of breath and chest pain. MEDICAL HISTORY : Hypertension. Arthritis. GI bleed. Renal failure. SURGICAL HISTORY : Hernia repair. Dialysis. Neck surgery. Left AV fistula. ENCOUNTER: Initial ACUITY: 1 day PAIN SCORE: 5/10 LOCATION: Bilateral chest FINDINGS: Mild atelectasis seen at both bases. Early or mild pneumonia possible the right base. No pleural effu hillary seen. No pneumothorax. Heart size stable, mildly enlarged. CONCLUSION: Mild bibasilar atelectasis. Potential early or mild pneumonia right base. Baudilio Dubois MD on June 13, 2017 at 22:41 Board Certified Radiologist. This report was verified electronically.
[2017-06-13 23:03] LABS: ANION GAP 7 MEQ/L (5-15); AST (GOT) 77 U/L (15-37); BICARBONATE 30.5 MEQ/L (21.0-32.0); BLOOD UREA NITROGEN 11 MG/DL (7-18); CHLORIDE 98 MEQ/L (98-107); GLOMERULAR FILTRATION RATE 26 ML/MIN (>89); POTASSIUM 3.1 MEQ/L (3.5-5.1); SODIUM (NA) 135 MEQ/L (136-145)
[2017-06-13 23:05] LABS: ALT (GPT) 24 U/L (12-78)
[2017-06-13 23:11] LABS: PROTHROMBIN TIME - PATIENT 10.8 SEC (9.8-11.6)
[2017-06-13 23:26] LABS: ALKALINE PHOSPHATASE 342 U/L (45-117); TOTAL BILIRUBIN ADULT 0.7 MG/DL (0.2-1.0)
[2017-06-13] MEDS ORDERED: POTASSIUM CHLORIDE 20 MEQ CONTROLLED RELEASE TAB PO ONE (23:30)
[2017-06-13] MEDS ORDERED: cefTRIAXone INJ 1,000 MG in SODIUM CHLORIDE 0.9% INJ 100 ML IV ONE (23:30)
[2017-06-13] MEDS ORDERED: AZITHROMYCIN INJ 500 MG in SODIUM CHLOR 0.9% 250 ML INJ 250 ML IV ONE (23:30)
[2017-06-13] MEDS ORDERED: ZITHTAB PO (23:36)
[2017-06-14] MEDS ORDERED: ONDANSETRON HCL 4 MG/2 ML VIAL IV PUSH ONE (01:45)
--- NOTE | 2017-06-14 16:10 | EKG ---
Date Performed: 06/13/2017 Time Performed: 22:16:05 PTAGE: 62 years EKG: Sinus rhythm ATRIAL ABNORMALITY LEFT AXIS DEVIATION Left ventricular hypertrophy INTRAVENTRICULAR CONDUCTION LAUREN Y DIFFUSE NONSPECIFIC ST-T CHANGE Compared to previous tracing, MS interval is shorter. ST-T changes are the same ABNORMAL ECG PREVIOUS TRACING : 06/12/2017 17.32 DOCTOR: Chandan Blancas Interpretating Date/Time 06/14/2017 16:09:30
== END 2017-06-14 03:02 | disposition home or self-care (01) ==
LOC: NEPE 21:46
DX: J18.9 Pneumonia, unspecified organism (principal); I12.0 Hypertensive chronic kidney disease with stage 5 chronic kidney disease or end stage renal disease; N18.6 End stage renal disease; Z99.2 Dependence on renal dialysis; E87.6 Hypokalemia; R07.9 Chest pain, unspecified
CPT/HCPCS: 71010; 80053; 84484; 85025; 85610; 87040; 93005; 96365; 96367; 96375; 99285; J0456; J0696; J2405; J7050

== ENCOUNTER 2017-07-01 17:29 | Emergency (ER) | payer MEDICARE, OTHER ==
[~2017-07-01] VITALS: Ht 188 cm; Wt 77.0 kg
[~2017-07-01 17:29] MED LIST changes: -GABA300C5 PO; -GUAN1TAB PO; +ZITHTAB PO
[2017-07-01 17:35] VITALS: BP 149/78; PULSE 89; RESP 16; TEMP 98.4; O2SAT 99
[2017-07-01] MEDS ORDERED: SODIUM CHLORIDE 0.9% FLUSH 10 ML FLUSH IV FLUSH PRN (18:30)
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
[2017-07-01 18:55] LABS: AUTOMATED NEUTROPHIL # 3.9 TH/MM3 (1.8-7.7); BASOPHIL % 0.8 % (0.0-2.0); EOSINOPHIL % 0.5 % (0.0-4.0); HEMO FLAGS DIFF FINAL; LYMPH % 15.9 % (9.0-44.0); LYMPHOCYTE # 0.8 TH/MM3 (1.0-4.8); MEAN CORPUSCULAR HEMOGLOBIN 33.5 PG (27.0-34.0); MEAN CORPUSCULAR HGB CONC 33.1 % (32.0-36.0); MONO % 6.7 % (0.0-8.0); NEUT % 76.1 % (16.0-70.0); PLATELET COUNT 207 TH/MM3 (150-450); RED BLOOD COUNT 3.26 MIL/MM3 (4.50-5.90); RED CELL DISTRIBUTION WIDTH 19.6 % (11.6-17.2); WHITE BLOOD COUNT 5.1 TH/MM3 (4.0-11.0)
[2017-07-01 19:01] LABS: APTT (PATIENT) 30.8 SEC (24.3-30.1); INTERNATIONAL NORMALIZED RATIO 0.9 RATIO
[2017-07-01 19:18] LABS: ANION GAP 19 MEQ/L (5-15); AST (GOT) 58 U/L (15-37); BICARBONATE 18.6 MEQ/L (21.0-32.0); BLOOD UREA NITROGEN 66 MG/DL (7-18); CHLORIDE 98 MEQ/L (98-107); GLOMERULAR FILTRATION RATE 4 ML/MIN (>89); POTASSIUM 4.4 MEQ/L (3.5-5.1); SODIUM (NA) 136 MEQ/L (136-145)
[2017-07-01 19:20] VITALS: BP 136/68; PULSE 87; RESP 16; O2SAT 97
[2017-07-01 19:22] LABS: ALKALINE PHOSPHATASE 371 U/L (45-117); ALT (GPT) 25 U/L (12-78); TOTAL BILIRUBIN ADULT 0.4 MG/DL (0.2-1.0)
--- NOTE | 2017-07-01 19:54 | RADRPT ---
EXAM DATE/TIME: 07/01/2017 19:12 [facility] COMPARISON: No previous studies available for comparison. INDICATIONS : Abdominal pain. MEDICAL HISTORY : Hypertension. Renal failure, chronic. Dialysis, Anemia, Skin cancer SURGICAL HISTORY : Hernia repair, stomach sx. ENCOUNTER: Initial ACUITY: 1 day PAIN SCORE: 9/10 LOCATION: Bilateral abdomen FINDINGS: A single erect view of the abdomen demonstrates the lower lungs to be clear. No evidence of free int raperitoneal gas. The visualized bowel loops are unremarkable. CONCLUSION: 1. No acute findings. Embolization coils in the upper abdomen. Gumaro Meredith MD on July 01, 2017 at 19:52 Board Certified Radiologist. This report was verified electronically.
[2017-07-01 20:29] VITALS: BP 161/82; PULSE 82; RESP 20; O2SAT 96
[2017-07-01] MEDS ORDERED: SODIUM BICARBONATE 8.4% INJ 50 MEQ/50 ML SYR IV PUSH ONE (20:30)
[2017-07-01 20:42] VITALS: BP 161/83; PULSE 85; O2SAT 97
[2017-07-01 20:47] LABS: BLOOD, URINE MOD (NEG); COMMENT (UR) CULT NOT INDICATED; CULTURE IF INDICATED CULT NOT INDICATED; GLUCOSE,URINE NEG (NEG); HYALINE CAST, URINE 1 /lpf (RARE); KETONE, URINE NEG (NEG); MUCUS URINE FEW /lpf (OCC); NITRITE,URINE NEG (NEG); SQUAMOUS EPITHELIAL CELL URINE 1 /hpf (0-5); URINE COLOR YELLOW (YELLW/STRAW)
--- NOTE | 2017-07-02 17:56 | EKG ---
Date Performed: 07/01/2017 Time Performed: 18:51:09 PTAGE: 62 years EKG: Sinus rhythm VENTRICULAR TRIGEMINY LEFT AXIS DEVATION NONSPECIFIC INTRAVENTRICULAR CONDUCTION DELAY WITH SECONDA RY ST-T WAVE CHANGES Left ventricular hypertrophy with repolarization abnormailty Compared to prior t racing no significant change ABNORMAL ECG PREVIOUS TRACING : 06/13/2017 22.16 DOCTOR: Bird Rivera Interpretating Date/Time 07/02/2017 17:55:42
== END 2017-07-01 22:33 | disposition home or self-care (01) ==
LOC: NEPC 17:29
DX: R10.30 Lower abdominal pain, unspecified (principal); I12.0 Hypertensive chronic kidney disease with stage 5 chronic kidney disease or end stage renal disease; N18.6 End stage renal disease; Z99.2 Dependence on renal dialysis; Z72.0 Tobacco use; D64.9 Anemia, unspecified
CPT/HCPCS: 74000; 80053; 81001; 82550; 83690; 84484; 85025; 85610; 85730; 93005; 96374

== ENCOUNTER 2017-08-01 17:06 | Observation (INO) | payer MEDICARE, OTHER ==
[~2017-08-01] VITALS: Ht 177.8 cm; Wt 70.0 kg
[~2017-08-01 17:06] MED LIST changes: -ALA1CRE2 TOPICAL; -PROT40TA PO; -ZITHTAB PO
[2017-08-01 17:12] VITALS: BP 95/56; PULSE 74; RESP 16; TEMP 97.4; O2SAT 95
[2017-08-01 17:29] VITALS: BP 112/65; PULSE 72; RESP 14; TEMP 98.7; O2SAT 98
[2017-08-01] MEDS ORDERED: SODIUM CHLOR 0.9% 1000 ML INJ 1,000 ML IV SCH (17:56)
[2017-08-01 18:16] VITALS: O2SAT 98
--- NOTE | 2017-08-01 18:17 | RADRPT ---
EXAM DATE/TIME: 08/01/2017 18:05 [facility] COMPARISON: CT BRAIN W/O CONTRAST, June 12, 2017, 16:45. INDICATIONS : Altered mental status. RADIATION DOSE: 32.74 CTDIvol (mGy) MEDICAL HISTORY : Hypertension. Renal failure, chronic. GI Bleed. Dialysis. Skin cancer. SURGICAL HISTORY : None. ENCOUNTER: Initial ACUITY: 1 day PAIN SCALE: 0/10 LOCATION: cranial TECHNIQUE: Multiple contiguous axial images were obtained of the head. Using automated exposure control and adj ustment of the mA and/or kV according to patient size, radiation dose was kept as low as reasonably a chievable to obtain optimal diagnostic quality images. DICOM format image data is available electro nically for review and comparison. FINDINGS: CEREBRUM: The ventricles are normal for age. No evidence of midline shift, mass lesion, hemorrhage or acute in farction. No extra-axial fluid collections are seen. POSTERIOR FOSSA: The cerebellum and brainstem are intact. The 4th ventricle is midline. The cerebellopontine angle i s unremarkable. EXTRACRANIAL: The visualized portion of the orbits is intact. SKULL: The calvaria is intact. No evidence of skull fracture. CONCLUSION: Normal examination for a patient of this age. Gumaro Meredith MD on August 01, 2017 at 18:11 Board Certified Radiologist. This report was verified electronically.
--- NOTE | 2017-08-01 18:26 | PD ---
HPI Chief Complaint: Alcohol/Drug Intoxication Time Seen by Provider: 17:33 Travel History International Travel<30 days: No Contact w/Intl Traveler<30days: No Traveled to known affect area: No History of Present Illness HPI 62-year-old male that presents to the ED for evaluation of possible alcohol abuse. Patient apparently was found to be sleeping when asked to 2 bottles of empty liquor as well as an apartment building. For the most per patient was brought here for evaluation. Patient voices no complaints. He denies drinking alcohol or any drugs. He does deny any injuries recently. He has been seen here before for abdominal pain and some alcohol abuse. He does have a history of psychiatric illnesses. For the most part he is a poor historian unclear this is because of intoxication, alteration. He does not appear to be agitated and follows commands well. Multiple allergies to different medications especially psychiatric meds. Denies any pain. No signs of trauma or other injuries. PFSH Past Medical History Hx Anticoagulant Therapy: No Anemia: Yes Arthritis: Yes Asthma: No Autoimmune Disease: No Blood Disorders: No Bipolar Disorder: Yes Anxiety: No Depression: No Heart Rhythm Problems: No Cancer: Yes (SKIN) Cardiovascular Problems: Yes (HTN) High Cholesterol: No Chemotherapy: Yes Chest Pain: No Congestive Heart Failure: No COPD: No Cerebrovascular Accident: No Diabetes: No Dialysis: Yes (MON, WED, FRI) Diminished Hearing: No Endocrine: No Gastrointestinal Disorders: Yes (GI BLEED) Genitourinary: Yes Hypertension: Yes Immune Disorder: No Implanted Vascular Access Dvce: Yes Kidney Stones: No Musculoskeletal: Yes Neurologic: No Psychiatric: No Reproductive: No Respiratory: No Integumentary: Yes Immunizations Current: Yes Radiation Therapy: Yes Renal Failure: Yes Seizures: No Sickle Cell Disease: No Sleep Apnea: No Past Surgical History Abdominal Surgery: Yes (HERNIA REPAIR, STOMACH SURGERY, LESION IN COLON CAUTERIZED 11/2016(GIBLEED)) AICD: No Arteriovenous Shunt: No Body Medical Devices: DIALYSIS SHUNT IN LEFT ARM Cardiac Surgery: No Ear Surgery: No Endocrine Surgery: No Eye Surgery: No Genitourinary Surgery: No Hysterectomy: No Insulin Pump: No Joint Replacement: No Oral Surgery: No Pacemaker: No Thoracic Surgery: No Other Surgery: Yes (NECK SURGERY/TUMOR; L FISTULA, HERNIA REPAIR) Social History Alcohol Use: Yes (UTO) Tobacco Use: Yes (5 cigarretes per day) Substance Use: No (pt denies) Allergies-Medications (Allergen,Severity, Reaction): Coded Allergies: paliperidone (Verified Allergy, Intermediate, hives, 08/01/17) risperidone (Verified Allergy, Intermediate, hives, 08/01/17) valproic acid (Verified Allergy, Intermediate, Anaphylaxis, 08/01/17) bupropion (Verified Adverse Reaction, Severe, SEIZURE, 08/01/17) chlorpromazine (Verified Adverse Reaction, Severe, SEIZURE, 08/01/17) haloperidol (Verified Adverse Reaction, Severe, SEIZURE, 08/01/17) lithium (Verified Adverse Reaction, Intermediate, Anaphylaxis, 08/01/17) varenicline (Verified Adverse Reaction, Intermediate, Hypertension, ) Reported Meds & Prescriptions Reported Meds & Active Scripts Active Active Prescriptions or Reported Medications Unobtainable Review of Systems ROS Limitations: Poor Historian Except as stated in HPI: all other systems reviewed are Neg Physical Exam Exam Limitations: Poor Historian Narrative GENERAL: SKIN: Warm and dry. HEAD: Atraumatic. Normocephalic. EYES: Pupils equal and round. No scleral icterus. No injection or drainage. ENT: No nasal bleeding or discharge. Mucous membranes pink and moist. Tongue is midline. No uvula deviation. NECK: Trachea midline. No JVD. CARDIOVASCULAR: Regular rate and rhythm. No murmurs, S3, S4. RESPIRATORY: No accessory muscle use. Clear to auscultation. Breath sounds equal bilaterally. GASTROINTESTINAL: Abdomen soft, non-tender, nondistended. Hepatic and splenic margins not palpable. MUSCULOSKELETAL: Extremities without clubbing, cyanosis, or edema. No obvious deformities. Full range of motion of the upper and lower extremities bilaterally. 2+ pulses bilaterally. NEUROLOGICAL: Awake and alert. No obvious cranial nerve deficits. Motor grossly within normal limits. Five out of 5 muscle strength in the arms and legs. Normal speech. PSYCHIATRIC: Appropriate mood and affect; insight and judgment normal. Data Data Last Documented VS Vital Signs Date Time Temp Pulse Resp B/P (MAP) Pulse Ox O2 Delivery O2 Flow Rate FiO2 08/01/17 19:02 80 18 139/70 (93) 100 Room Air 08/01/17 17:29 98.7 Orders Orders Complete Blood Count With Diff (08/01/17 17:56) Comprehensive Metabolic Panel (08/01/17 17:56) Iv Access Insert/Monitor (08/01/17 17:56) Ecg Monitoring (08/01/17 17:56) Oximetry (08/01/17 17:56) Sodium Chlor 0.9% 1000 Ml Inj (Ns 1000 M (08/01/17 17:56) Electrocardiogram (08/01/17 17:56) Ckmb (Isoenzyme) Profile (08/01/17 17:56) Troponin I (08/01/17 17:56) Ct Brain W/O Iv Contrast(Rout) (08/01/17 17:56) Drug Screen, Random Urine (08/01/17 17:56) Alcohol (Ethanol) (08/01/17 17:56) Salicylates (Aspirin) (08/01/17 17:56) Tylenol (Acetaminophen) (08/01/17 17:56) Chest, Single Ap (08/01/17 ) CKMB (08/01/17 18:00) CKMB% (08/01/17 18:00) Sodium Bicarbonate 8.4% Inj (Sodium Bica (08/01/17 19:30) Admit Order (Ed Use Only) (08/01/17 19:33) Consult Nephrology (08/01/17 ) Labs Laboratory Tests Test 08/01/17 18:00 White Blood Count 7.2 TH/MM3 Red Blood Count 3.58 MIL/MM3 Hemoglobin 11.7 GM/DL Hematocrit 35.3 % Mean Corpuscular Volume 98.5 FL Mean Corpuscular Hemoglobin 32.7 PG Mean Corpuscular Hemoglobin Concent 33.2 % Red Cell Distribution Width 18.8 % Platelet Count 279 TH/MM3 Mean Platelet Volume 7.2 FL Neutrophils (%) (Auto) 86.7 % Lymphocytes (%) (Auto) 7.3 % Monocytes (%) (Auto) 5.6 % Eosinophils (%) (Auto) 0.1 % Basophils (%) (Auto) 0.3 % Neutrophils # (Auto) 6.3 TH/MM3 Lymphocytes # (Auto) 0.5 TH/MM3 Monocytes # (Auto) 0.4 TH/MM3 Eosinophils # (Auto) 0.0 TH/MM3 Basophils # (Auto) 0.0 TH/MM3 CBC Comment DIFF FINAL Differential Comment Blood Urea Nitrogen 78 MG/DL Creatinine 10.65 MG/DL Random Glucose 59 MG/DL Total Protein 7.3 GM/DL Albumin 3.2 GM/DL Calcium Level 8.2 MG/DL Alkaline Phosphatase 412 U/L Aspartate Amino Transf (AST/SGOT) 23 U/L Alanine Aminotransferase (ALT/SGPT) 12 U/L Total Bilirubin 0.3 MG/DL Sodium Level 130 MEQ/L Potassium Level 4.9 MEQ/L Chloride Level 95 MEQ/L Carbon Dioxide Level 15.8 MEQ/L Anion Gap 19 MEQ/L Estimat Glomerular Filtration Rate 5 ML/MIN Total Creatine Kinase 104 U/L Creatine Kinase MB 7.6 NG/ML Troponin I 0.02 NG/ML Salicylates Level 1.7 MG/DL Acetaminophen Level LESS THAN 2.0 MCG/ML Ethyl Alcohol Level 311 MG/DL [facility] Medical Decision Making Medical Screen Exam Complete: Yes Emergency Medical Condition: Yes Medical Record Reviewed: Yes Interpretation(s) CBC & BMP Diagram 08/01/17 18:00 Total Protein 7.3, Albumin 3.2 L, Calcium Level 8.2 L, Alkaline Phosphatase 412 H, Aspartate Amino Transf (AST/SGOT) 23, Alanine Aminotransferase (ALT/SGPT) 12 , Total Bilirubin 0.[address] 08/01/17 1756 Signed Impressions: Service Date/Time: Tuesday, August 01, 2017 18:05 - CONCLUSION: Normal examination for a patient of this age. Gumaro Meredith MD Chest X-Ray 08/01/17 0000 Signed Impressions: Service Date/Time: Tuesday, August 01, 2017 18:53 - CONCLUSION: 1. Subsegmental basilar airspace disease. Elevated left hemidiaphragm. Findings similar to June 13. Gumaro Meredith MD tox positive for alcohol in the 300s troponin and CKMB negative Differential Diagnosis Altered mental status versus alcohol abuse versus alcohol dependence versus substance abuse versus dehydration versus head injury versus syncope Narrative Course 62-year-old male that presents to the ED for evaluation of possible substance intoxication. Patient was properly examined and was found to have signs and symptoms of unclear etiology. She does have a history of alcohol abuse but for the most part the history was obtained from ED nurse says ambulance had already left. He does have significant history of previous admissions for different medical conditions. Labs and imaging will be ordered to make sure patient doesn 't have anything acute. Labs and imaging show what appears to be acute on chronic kidney disease. Patient does tell me that he has missed his dialysis since Friday. He follows with Dr. Schuster. Call was placed to Dr. Mata who is on-call for Dr. Schuster and agrees to do dialysis tomorrow. Wants me to give him a dose of sodium bicarbonate IV here. Patient's alcohol is elevated. This time patient still somewhat altered and doesn't answer questions appropriately. Because of need for dialysis as well as for altered mental status to do recommend admission. Several was ordered. Case discussed with Dr. Lewis who agrees to admission. My attending Dr. Perez was made aware of findings and agrees with this plan. Diagnosis Primary Impression: Altered mental status Qualified Codes: R41.82 - Altered mental status, unspecified Additional Impressions: Alcohol intoxication Qualified Codes: F10.920 - Alcohol use, unspecified with intoxication, uncomplicated ESRD (end stage renal disease) on dialysis Acute on chronic kidney failure Qualified Codes: N17.9 - Acute kidney failure, unspecified; N18.9 - Chronic kidney disease, unspecified; Z99.2 - Dependence on renal dialysis Admitting Information Admitting Physician Requests: Observation Scripts Unable to Obtain Active Prescriptions or Reported Meds Titus Solitairo Aug 01, 2017 18:26
[2017-08-01 18:31] LABS: AUTOMATED NEUTROPHIL # 6.3 TH/MM3 (1.8-7.7); BASOPHIL % 0.3 % (0.0-2.0); EOSINOPHIL % 0.1 % (0.0-4.0); HEMATOCRIT 35.3 % (39.0-51.0); HEMO FLAGS DIFF FINAL; LYMPH % 7.3 % (9.0-44.0); LYMPHOCYTE # 0.5 TH/MM3 (1.0-4.8); MEAN CELL VOLUME 98.5 FL (80.0-100.0); MEAN CORPUSCULAR HEMOGLOBIN 32.7 PG (27.0-34.0); MEAN CORPUSCULAR HGB CONC 33.2 % (32.0-36.0); MONO % 5.6 % (0.0-8.0); NEUT % 86.7 % (16.0-70.0); PLATELET COUNT 279 TH/MM3 (150-450); RED BLOOD COUNT 3.58 MIL/MM3 (4.50-5.90); RED CELL DISTRIBUTION WIDTH 18.8 % (11.6-17.2); WHITE BLOOD COUNT 7.2 TH/MM3 (4.0-11.0)
[2017-08-01 18:51] LABS: ANION GAP 19 MEQ/L (5-15); AST (GOT) 23 U/L (15-37); BICARBONATE 15.8 MEQ/L (21.0-32.0); BLOOD UREA NITROGEN 78 MG/DL (7-18); CHLORIDE 95 MEQ/L (98-107); GLOMERULAR FILTRATION RATE 5 ML/MIN (>89); POTASSIUM 4.9 MEQ/L (3.5-5.1); SODIUM (NA) 130 MEQ/L (136-145)
[2017-08-01 18:52] LABS: ALT (GPT) 12 U/L (12-78)
[2017-08-01 18:56] LABS: ALKALINE PHOSPHATASE 412 U/L (45-117); CREATINE KINASE 104 U/L (39-308); TOTAL BILIRUBIN ADULT 0.3 MG/DL (0.2-1.0)
[2017-08-01 18:57] LABS: ALCOHOL 311 MG/DL (0-5)
[2017-08-01 18:58] LABS: ACETAMINOPHEN LESS THAN 2.0 MCG/ML (10.0-30.0)
[2017-08-01 19:02] VITALS: BP 139/70; PULSE 80; RESP 18; O2SAT 100
[2017-08-01 19:11] LABS: CKMB 7.6 NG/ML (0.5-3.6)
--- NOTE | 2017-08-01 19:18 | RADRPT ---
EXAM DATE/TIME: 08/01/2017 18:53 [facility] COMPARISON: CHEST SINGLE AP, June 13, 2017, 22:23. INDICATIONS : Chest Pains MEDICAL HISTORY : Hypertension. Renal failure, chronic. GI Bleed. Dialysis. Skin cancer SURGICAL HISTORY : None. ENCOUNTER: Initial ACUITY: 1 day PAIN SCORE: 4/10 LOCATION: Bilateral chest FINDINGS: A single view of the chest demonstrates subsegmental basilar air space disease with elevated left hem idiaphragm. No significant effusion. No pneumothorax. CONCLUSION: 1. Subsegmental basilar airspace disease. Elevated left hemidiaphragm. Findings similar to June 13. Gumaro Meredith MD on August 01, 2017 at 19:15 Board Certified Radiologist. This report was verified electronically.
[2017-08-01] MEDS ORDERED: SODIUM BICARBONATE 8.4% INJ 50 MEQ/50 ML SYR IV PUSH ONE (19:30)
--- NOTE | 2017-08-01 19:43 | HHI.HP ---
[facility]ician Unknown Admission Diagnosis ESRD needing dialysis, alcohol intoxication, altered Diagnoses: (1) Alcohol abuse Diagnosis: Principal (2) ESRD (end stage renal disease) on dialysis Diagnosis: Principal (3) Non-compliance Diagnosis: Principal (4) Metabolic acidosis Diagnosis: Principal (5) Tobacco abuse Diagnosis: Principal Travel History International Travel<30 Days: No Contact w/Intl Traveler <30 Da: No Traveled to Known Affected Are: No History of Present Illness A 62-year-old male with a PMH of Bipolar Disorder, ESRD on HD M//, Non- Compliance, Alcohol Abuse and Tobacco Abuse who was brought to the ER by EMS after being found asleep on ground in his apartment building w/ 2 empty bottles of Vodka at his side. Unable to obtain history from patient secondary to intoxication. No apparent injuries noted. On arrival, BP 95/56, HR 74, O2 sat 95% on RA, Afebrile. S/p IVF in ER, BP currently 139/70, HR 80. CBC essentially at baseline. Creatinine 10.65, previously 12.1 07/01/17. AG 19. Follows w/ Dr. Schuster for ESRD as outpatient, Dr. Mata consulted by ER physician, last HD on Friday per records. HD to be done in am. Review of Systems ROS: Unable to obtain secondary to intoxication Past Family Social History Past Medical History PMH: Bipolar Disorder, ESRD on HD M//, Non-Compliance, Alcohol Abuse and Tobacco Abuse Past Surgical History PAST SURGICAL HISTORY: Hernia Repair, LUE Fistula, Neck Surgery Allergies: Coded Allergies: paliperidone (Verified Allergy, Intermediate, hives, 08/01/17) risperidone (Verified Allergy, Intermediate, hives, 08/01/17) valproic acid (Verified Allergy, Intermediate, Anaphylaxis, 08/01/17) bupropion (Verified Adverse Reaction, Severe, SEIZURE, 08/01/17) chlorpromazine (Verified Adverse Reaction, Severe, SEIZURE, 08/01/17) haloperidol (Verified Adverse Reaction, Severe, SEIZURE, 08/01/17) lithium (Verified Adverse Reaction, Intermediate, Anaphylaxis, 08/01/17) varenicline (Verified Adverse Reaction, Intermediate, Hypertension, ) Family History PAST FAMILY HISTORY: Reviewed. No h/o DM or CAD Social History PAST SOCIAL HISTORY: Positive for alcohol abuse, unable to quantify. Positive for tobacco. Negative for drugs. Physical Exam Vital Signs Vital Signs Date Time Temp Pulse Resp B/P (MAP) Pulse Ox O2 Delivery O2 Flow Rate FiO2 08/01/17 19:02 80 18 139/70 (93) 100 Room Air 08/01/17 18:16 98 Room Air 08/01/17 17:29 98.7 72 14 112/65 (81) 98 Room Air 08/01/17 17:12 97.4 74 16 95/56 (69) 95 Physical Exam PE: GENERAL: Middle-aged male in no acute distress, acutely intoxicated. HEENT: PERRLA, EOMI. No scleral icterus or conjunctival pallor. No lid lag or facial droop. CARDIOVASCULAR: Regular rate and rhythm. No obvious murmurs to auscultation. No chest tenderness to palpation. RESPIRATORY: No obvious rhonchi or wheezing. Clear to auscultation. Breath sounds equal bilaterally. GASTROINTESTINAL: Abdomen soft, non-tender, nondistended. BS normal. MUSCULOSKELETAL: Extremities without clubbing, cyanosis, or edema. No obvious deformities. NEUROLOGICAL: Awake, alert and oriented x4. No focal neurologic deficits. Moving both upper and lower extremities spontaneously. Laboratory Laboratory Tests Test 08/01/17 18:00 White Blood Count 7.2 Red Blood Count 3.58 Hemoglobin 11.7 Hematocrit 35.3 Mean Corpuscular Volume 98.5 Mean Corpuscular Hemoglobin 32.7 Mean Corpuscular Hemoglobin Concent 33.2 Red Cell Distribution Width 18.8 Platelet Count 279 Mean Platelet Volume 7.2 Neutrophils (%) (Auto) 86.7 Lymphocytes (%) (Auto) 7.3 Monocytes (%) (Auto) 5.6 Eosinophils (%) (Auto) 0.1 Basophils (%) (Auto) 0.3 Neutrophils # (Auto) 6.3 Lymphocytes # (Auto) 0.5 Monocytes # (Auto) 0.4 Eosinophils # (Auto) 0.0 Basophils # (Auto) 0.0 CBC Comment DIFF FINAL Differential Comment Blood Urea Nitrogen 78 Creatinine 10.65 Random Glucose 59 Total Protein 7.3 Albumin 3.2 Calcium Level 8.2 Alkaline Phosphatase 412 Aspartate Amino Transf (AST/SGOT) 23 Alanine Aminotransferase (ALT/SGPT) 12 Total Bilirubin 0.3 Sodium Level 130 Potassium Level 4.9 Chloride Level 95 Carbon Dioxide Level 15.8 Anion Gap 19 Estimat Glomerular Filtration Rate 5 Total Creatine Kinase 104 Creatine Kinase MB 7.6 Troponin I 0.02 Salicylates Level 1.7 Acetaminophen Level LESS THAN 2.0 Ethyl Alcohol Level 311 Result Diagram: 08/01/17 1800 08/01/17 1800 Caprini VTE Risk Assessment Caprini VTE Risk Assessment: No/Low Risk (score <= 1) VTE Pharm Contraindication: High risk for bleeding Caprini Risk Assessment Model Point Value = 1 Point Value = 2 Point Value = 3 Point Value = 5 Age 41-60 Minor surgery BMI > 25 kg/m2 Swollen legs Varicose veins or History of unexplained or recurrent spontaneous Oral contraceptives or hormone replacement Sepsis (< 1 month) Serious lung disease, including pneumonia (< 1 month) Abnormal pulmonary function Acute myocardial infarction Congestive heart failure (< 1 month) History of inflammatory bowel disease Medical patient at bed rest Age 61-74 Arthroscopic surgery Major open surgery (> 45 min) Laparoscopic surgery (> 45 min) Malignancy Confined to bed (> 72 hours) Immobilizing plaster cast Central venous access Age >= 75 History of VTE Family history of VTE Factor V Leiden Prothrombin [id number] Lupus anticoagulant Anticardiolipin antibodies Elevated serum homocysteine Heparin-induced thrombocytopenia Other congenital or acquired thrombophilia Stroke (< 1 month) Elective arthroplasty Hip, pelvis, or leg fracture Acute spinal cord injury (< 1 month) Prophylaxis Regimen Total Risk Factor Score Risk Level Prophylaxis Regimen 0-1 Low Early ambulation 2 Moderate Order ONE of the following: *Sequential Compression Device (SCD) *Heparin 5000 units SQ BID 3-4 Higher Order ONE of the following medications: *Heparin 5000 units SQ TID *Enoxaparin/Lovenox 40 mg SQ daily (WT < 150 kg, CrCl > 30 mL/min) *Enoxaparin/Lovenox 30 mg SQ daily (WT < 150 kg, CrCl > 10-29 mL/min) *Enoxaparin/Lovenox 30 mg SQ BID (WT < 150 kg, CrCl > 30 mL/min) AND/OR *Sequential Compression Device (SCD) 5 or more Highest Order ONE of the following medications: *Heparin 5000 units SQ TID (Preferred with Epidurals) *Enoxaparin/Lovenox 40 mg SQ daily (WT < 150 kg, CrCl > 30 mL/min) *Enoxaparin/Lovenox 30 mg SQ daily (WT < 150 kg, CrCl > 10-29 mL/min) *Enoxaparin/Lovenox 30 mg SQ BID (WT < 150 kg, CrCl > 30 mL/min) AND *Sequential Compression Device (SCD) Assessment and Plan Problem List: (1) Alcohol abuse ICD Code: F10.10 - Alcohol abuse, uncomplicated Status: Chronic (2) Metabolic acidosis ICD Code: E87.2 - Acidosis (3) Non-compliance ICD Code: Z91.19 - Patient's noncompliance with other medical treatment and regimen (4) ESRD (end stage renal disease) on dialysis ICD Code: N18.6 - End stage renal failure on dialysis; Z99.2 - Dependence on renal dialysis Status: Chronic (5) Tobacco abuse ICD Code: Z72.0 - Tobacco use Assessment and Plan A/P: 1. Alcohol Abuse: w/ Acute Alcohol Intoxication, found w/ 2 empty bottles of Vodka at his side, high risk for withdrawal, CIWA, Seizure Precautions, Thiamine /Folate/MVT replacement. 2. ESRD on HD: M/W/F. Creatinine 10.65, previously 12.10 on 07/01/17. Follows w/ Dr. Schuster as outpatient, Dr. Mata consulted by ER physician, last HD on Friday per records. HD scheduled for am. 3. Metabolic Acidosis: AG 19, CO2 95, started on Sodium Bicarb per Nephrology. Will repeat labs in am. 4. Non-Compliance: h/o non-compliance to meds/follow-up. Pt currently intoxicated. 5. Tobacco Abuse: Ativan/NicoDerm prn if needed. 6. DVT Prophylaxis: SCD/Teds. 7. Social work for d/c planning as needed. 8. Case discussed w/ ER physician at length. Asya Lewis MD Aug 01, 2017 19:43
[2017-08-01] MEDS ORDERED: SODIUM CHLORIDE 0.9% FLUSH 10 ML FLUSH IV FLUSH PRN (19:45)
[2017-08-01] MEDS ORDERED: ACETAMINOPHEN 325 MG TAB PO PRN ×2 (19:45)
[2017-08-01] MEDS ORDERED: LORazepam 2 MG TAB PO PRN (19:45)
[2017-08-01] MEDS ORDERED: MAGNESIUM HYDROXIDE SUSP 30 ML CUP PO PRN (19:45)
[2017-08-01] MEDS ORDERED: LORazepam 1 MG TAB PO PRN (19:45)
[2017-08-01] MEDS ORDERED: BISACODYL 10 MG SUPP RECTAL PRN (19:45)
[2017-08-01] MEDS ORDERED: FLUMAZENIL 0.5 MG/5 ML VIAL IV PUSH PRN (19:45)
[2017-08-01] MEDS ORDERED: ONDANSETRON HCL 4 MG/2 ML VIAL IVP PRN (19:45)
[2017-08-01] MEDS ORDERED: SENNOSIDES 8.6 MG TAB PO PRN (19:45)
[2017-08-01] MEDS ORDERED: LACTULOSE SYRUP 20 GM/30 ML CUP PO PRN (19:45)
[2017-08-01] MEDS ORDERED: ONDANSETRON HCL 4 MG/2 ML VIAL IV PUSH PRN (19:45)
[2017-08-01] MEDS ORDERED: LORazepam 2 MG/ML VIAL IV PUSH PRN ×4 (19:45)
[2017-08-01 20:44] VITALS: BP 103/61
[2017-08-01 20:50] VITALS: BP 129/65; PULSE 69; RESP 17; TEMP 97.9; O2SAT 95
[2017-08-01] MEDS: SODIUM CHLORIDE 0.9% FLUSH 10 ML FLUSH IV FLUSH SCH (21:25)
[2017-08-01] MEDS: DOCUSATE SODIUM 50 MG/SENNA 8.6 MG TAB PO SCH (21:25)
[2017-08-01] MEDS ORDERED: THIAMINE INJ 100 MG in SODIUM CHLORIDE 0.9% INJ 100 ML IV ONE (22:00)
[2017-08-02 00:02] VITALS: BP 141/66; PULSE 75; RESP 18; TEMP 98.3; O2SAT 95
[2017-08-02 04:08] VITALS: BP 127/71; PULSE 81; RESP 17; TEMP 98.1; O2SAT 97
--- NOTE | 2017-08-02 05:06 | EKG ---
Date Performed: 08/01/2017 Time Performed: 18:27:08 PTAGE: 62 years EKG: Sinus rhythm INTRAVENTRICULAR CONDUCTION DELAY ABNORMAL ECG PREVIOUS TRACING : 07/01/2017 18.51 DOCTOR: Ran Albert Interpretating Date/Time 08/02/2017 05:03:43
[2017-08-02 06:51] LABS: AUTOMATED NEUTROPHIL # 3.9 TH/MM3 (1.8-7.7); BASOPHIL % 0.4 % (0.0-2.0); EOSINOPHIL % 0.3 % (0.0-4.0); HEMATOCRIT 31.6 % (39.0-51.0); HEMO FLAGS DIFF FINAL; LYMPH % 11.2 % (9.0-44.0); LYMPHOCYTE # 0.5 TH/MM3 (1.0-4.8); MEAN CELL VOLUME 98.5 FL (80.0-100.0); MEAN CORPUSCULAR HEMOGLOBIN 32.8 PG (27.0-34.0); MEAN CORPUSCULAR HGB CONC 33.3 % (32.0-36.0); MONO % 8.5 % (0.0-8.0); NEUT % 79.6 % (16.0-70.0); PLATELET COUNT 220 TH/MM3 (150-450); RED CELL DISTRIBUTION WIDTH 18.9 % (11.6-17.2); WHITE BLOOD COUNT 4.9 TH/MM3 (4.0-11.0)
[2017-08-02 07:02] LABS: ALT (GPT) 11 U/L (12-78); ANION GAP 20 MEQ/L (5-15); AST (GOT) 23 U/L (15-37); BICARBONATE 15.6 MEQ/L (21.0-32.0); BLOOD UREA NITROGEN 87 MG/DL (7-18); CHLORIDE 97 MEQ/L (98-107); GLOMERULAR FILTRATION RATE 5 ML/MIN (>89); POTASSIUM 4.5 MEQ/L (3.5-5.1); SODIUM (NA) 133 MEQ/L (136-145)
[2017-08-02 07:05] LABS: ALKALINE PHOSPHATASE 389 U/L (45-117); TOTAL BILIRUBIN ADULT 0.3 MG/DL (0.2-1.0)
[2017-08-02] MEDS: DOCUSATE SODIUM 50 MG/SENNA 8.6 MG TAB PO SCH (08:21)
[2017-08-02] MEDS: SODIUM CHLORIDE 0.9% FLUSH 10 ML FLUSH IV FLUSH SCH (08:22)
[2017-08-02 08:34] VITALS: BP 129/88; RESP 20; TEMP 96.8; O2SAT 98
[2017-08-02] MEDS ORDERED: FOLIC ACID 1 MG TAB PO SCH (09:00)
[2017-08-02] MEDS ORDERED: THIAMINE HCL 100 MG TAB PO SCH (09:00)
[2017-08-02] MEDS ORDERED: MULTIVITAMIN TAB PO SCH (09:00)
[2017-08-02] MEDS ORDERED: SODIUM CHLOR 0.9% 1000 ML INJ 1,000 ML IV PRN (09:20)
[2017-08-02] MEDS ORDERED: SODIUM CHLOR 0.9% 1000 ML INJ 1,000 ML OTHER PRN ×2 (09:20)
[2017-08-02] MEDS ORDERED: cloNIDine HCL 0.1 MG TAB PO PRN (09:30)
[2017-08-02] MEDS ORDERED: GELATIN 12 MM/7 MM FOAM TOP PRN (09:30)
[2017-08-02] MEDS ORDERED: ONDANSETRON HCL 4 MG/2 ML VIAL IV PUSH PRN (09:30)
[2017-08-02] MEDS ORDERED: ALBUMIN HUMAN 25% 25 GM/100 ML BAGP IV PRN (09:30)
[2017-08-02] MEDS ORDERED: SODIUM CHLORIDE 0.9% FLUSH 10 ML FLUSH IV FLUSH PRN (09:30)
[2017-08-02] MEDS ORDERED: LOPERAMIDE HCL 2 MG CAP PO PRN (09:30)
[2017-08-02] MEDS ORDERED: EPOETIN ALFA 10,000 UNITS/ML VIAL IV PUSH PRN (09:30)
[2017-08-02] MEDS ORDERED: MANNITOL 12.5 GM/50 ML VIAL IV PRN (09:30)
[2017-08-02] MEDS ORDERED: GENTAMICIN SULFATE (DIALYSIS USE ONLY) 20 MG/2 ML VIAL OTHER PRN (09:30)
[2017-08-02] MEDS ORDERED: HEPARIN SODIUM - IV 10,000 UNITS/10 ML VIAL IV FLUSH PRN (09:30)
[2017-08-02] MEDS ORDERED: ACETAMINOPHEN 325 MG TAB PO PRN (09:30)
[2017-08-02] MEDS ORDERED: NITROGLYCERIN 0.4 MG SL 25 TABS/BTL SL PRN (09:30)
[2017-08-02] MEDS ORDERED: HEPARIN SODIUM - IV 10,000 UNITS/10 ML VIAL PRN (09:30)
[2017-08-02] MEDS ORDERED: diphenhydrAMINE HCL 25 MG CAP PO PRN (09:30)
--- NOTE | 2017-08-02 11:20 | MB ---
cc: KALEB MENDIOLA MD DATE OF CONSULTATION: 08/02/2017 REASON FOR CONSULTATION End-stage renal disease on hemodialysis for management. HISTORY OF PRESENT ILLNESS This is a 62-year-old male known to me from before with a past medical history of bipolar disorder, has been on lithium, history of seizure disorder, chronic anemia, end-stage renal disease on hemodialysis three times per week, history of alcoholism, was brought to the hospital because of alcohol intoxication and lying on the floor. I was called last night to see the patient because of end-stage renal disease on hemodialysis. The patient has been on hemodialysis Friday, Friday and Friday and has been following with Dr. Sloan Schuster. The last time he had dialysis according to the patient was on Friday. He was supposed to go on Friday but he bought two bottles of vodka and drank and then he was lying on the ground and he does not know anything. He woke up and then he called 06-27- and they brought him here. He denies any nausea or vomiting. There is mild abdominal pain. There is no shortness of breath, no chest pain, no palpitation. The patient was found to have a potassium of 4.9 last night and the bicarb was low at 15.8 and his alcohol level was 311. PAST MEDICAL HISTORY 1. Bipolar disorder. 2. End-stage renal disease on hemodialysis. 3. Chronic anemia. 4. History of noncompliance. 5. History of alcoholism. PAST SURGICAL HISTORY 1. AV fistula surgery. 2. Hernia repair. 3. Neck surgery. REVIEW OF SYSTEMS The patient has generalized weakness, feeling tired. There is no history of fever. Occasionally he has headache. No nausea or vomiting. He has mild epigastric pain. No shortness of breath. No chest pain. No palpitation. No history of diarrhea. SOCIAL HISTORY The patient lives alone. He has a history of alcoholism. He also smokes less than a pack a day. Denies any other drug abuse. FAMILY HISTORY Noncontributory. ALLERGIES HE IS ALLERGIC TO MULTIPLE MEDICATIONS INCLUDING: PALIPERIDONE, RISPERIDONE, VALPROIC ACID, BUPROPION, CHLORPROMAZINE, HALOPERIDOL, LITHIUM, VARENICLINE. MEDICATIONS Currently he is on following medications. 1. Autumn-Colace one tablet b.i.d. 2. Thiamine 100 mg daily. 3. Folate 1 mg daily. 4. Theragran one tablet daily. 5. Ativan as needed. 6. Zofran as needed. 7. Lactulose. 8. Dulcolax as needed. PHYSICAL EXAMINATION GENERAL: The patient is awake, alert, he is now starting hemodialysis. VITAL SIGNS: His last blood pressure is 129/88, temperature is 96.8. HEAD, EYES, EARS, NOSE AND THROAT: Pupils are mid-constricted. Nonicteric sclerae. Conjunctivae are pale. NECK: Supple. JVD is not elevated. LUNGS: The patient has bilateral good air entry with occasional wheezing. HEART: S1, S2. Regular rhythm. ABDOMEN: Abdomen is soft, lax. There is mild epigastric tenderness. There is no rebound or rigidity. Bowel sounds positive. EXTREMITIES: 1+ leg edema. The left arm has an AV fistula with good bruit. INVESTIGATION WBC count is 4.9, hemoglobin 10.5, platelet count of 220, neutrophils 79.6%. Sodium 133, potassium 4.5, chloride 97, bicarb 15.6, BUN 87, creatinine 10.9, glucose 63, calcium 8.3, AST was 23, ALT was 11, alkaline phosphatase 389, total protein 6.3, albumin of 2.8. Toxicology screen showing ethyl alcohol level was 311, acetaminophen was less than 2 and salicylate was 1.7. IMAGING STUDIES The patient had a CT scan of the brain done which shows that he has a normal exam. Chest x-ray was done which shows subsegmental basilar airspace disease. ASSESSMENT AND PLAN 1. History of alcoholism. 2. End-stage renal disease on hemodialysis. 3. Noncompliance. 4. History of bipolar disorder. 5. Mild anemia. The patient has a very high level of alcohol and he admits to drinking at least one pint of vodka. He missed his dialysis on Friday. Potassium was normal but he has metabolic acidosis also contributed to some extent by the alcoholism. He is now getting dialysis, we will remove 2-3 liters. Blood pressure is stable. After dialysis if he is stable enough, then he can be discharged and followed up as outpatient by Dr. Sloan Schuster. Thank you for the consultation. I will follow the patient while he is in the hospital MD LUIS ANTONIO Waggoner/BJF /8:46 AM /10:26 AM
--- NOTE | 2017-08-02 16:30 | HHI.PR ---
Subjective Remarks Follow up ESRD. Patient seen and examined, status post dialysis. Patient denies any new acute complaints. Eager to leave. Denies any recent fever, chills, cough , shortness of breath, ab pain, chest pain, n/v or dysuria. Tolerating PO intake. Objective Vitals Vital Signs Date Time Temp Pulse Resp B/P (MAP) Pulse Ox O2 Delivery O2 Flow Rate FiO2 08/02/17 08:34 96.8 20 129/88 (102) 98 08/02/17 04:08 98.1 81 17 127/71 (89) 97 08/02/17 00:02 98.3 75 18 141/66 (91) 95 08/01/17 20:50 97.9 69 17 129/65 (86) 95 08/01/17 20:44 79 16 103/61 (75) 94 08/01/17 19:02 80 18 139/70 (93) 100 Room Air 08/01/17 18:16 98 Room Air 08/01/17 17:29 98.7 72 14 112/65 (81) 98 Room Air 08/01/17 17:12 97.4 74 16 95/56 (69) 95 I/O 08/01/17 08/01/17 08/01/17 08/02/17 08/02/17 08/02/17 07:00 15:00 23:00 07:00 15:00 23:00 Intake Total 1000 ml Output Total 4000 ml Balance 1000 ml -4000 ml IV Total 1000 ml Output Hemodialysis 4000 ml # Voids 2 Result Diagram: 08/02/17 0545 08/02/17 0545 Imaging Last Impressions Head CT 08/01/17 1756 Signed Impressions: Service Date/Time: Tuesday, August 01, 2017 18:05 - CONCLUSION: Normal examination for a patient of this age. Gumaro Meredith MD Chest X-Ray 08/01/17 0000 Signed Impressions: Service Date/Time: Tuesday, August 01, 2017 18:53 - CONCLUSION: 1. Subsegmental basilar airspace disease. Elevated left hemidiaphragm. Findings similar to June 13. Gumaro Meredith MD Objective Remarks GENERAL: Well-developed, well-nourished ,middle-aged male in no acute distress. HEENT: PERRLA, EOMI. No scleral icterus or conjunctival pallor. No lid lag or facial droop. CARDIOVASCULAR: Regular rate and rhythm. No obvious murmurs to auscultation. No chest tenderness to palpation. RESPIRATORY: No obvious rhonchi or wheezing. Clear to auscultation. Breath sounds equal bilaterally. GASTROINTESTINAL: Abdomen soft, non-tender, nondistended. BS normal. MUSCULOSKELETAL: Extremities without clubbing, cyanosis, or edema. No obvious deformities. NEUROLOGICAL: Awake, alert and oriented x4. No focal neurologic deficits. Moving both upper and lower extremities spontaneously. A/P Problem List: (1) Alcohol abuse ICD Code: F10.10 - Alcohol abuse, uncomplicated Status: Chronic (2) Metabolic acidosis ICD Code: E87.2 - Acidosis (3) Non-compliance ICD Code: Z91.19 - Patient's noncompliance with other medical treatment and regimen (4) ESRD (end stage renal disease) on dialysis ICD Code: N18.6 - End stage renal failure on dialysis; Z99.2 - Dependence on renal dialysis Status: Chronic (5) Tobacco abuse ICD Code: Z72.0 - Tobacco use Assessment and Plan A 62-year-old male with a PMH of Bipolar Disorder, ESRD on HD M/W/, Non- Compliance, Alcohol Abuse and Tobacco Abuse who was brought to the ER by EMS after being found asleep on ground in his apartment building w/ 2 empty bottles of Vodka at his side. Unable to obtain history from patient secondary to intoxication. No apparent injuries noted. On arrival, BP 95/56, HR 74, O2 sat 95% on RA, Afebrile. S/p IVF in ER, BP currently 139/70, HR 80. CBC essentially at baseline. Creatinine 10.65, previously 12.1 07/01/17. AG 19. Follows w/ Dr. Schuster for ESRD as outpatient. ESRD on HD: //. Creatinine 10.98, previously 12.10 on 07/01/17. Follows irina/ Dr. Schuster as outpatient. HD scheduled for Friday08/04/17. Had dialysis today, tolerated well. Non-Compliance: h/o non-compliance to meds/follow-up. Tobacco Abuse: Encouraged cessation. Alcohol Abuse: With acute Alcohol Intoxication on arrival. CIWA, Seizure Precautions, Thiamine/Folate/MVT replacement was ordered. DVT Prophylaxis: SCD/Teds. Discharge Planning Discharge today. Follow up with [facility] in outpatient setting. Sonia Andrade Aug 02, 2017 16:30
--- NOTE | 2017-08-02 16:30 | HHI.DCPOC ---
Discharge Care Plan Diagnosis: (1) Alcohol dependence in early, early partial, sustained full, or sustained partial remission (2) ESRD Additional Problems Alcohol abuse Tobacco abuse ESRD on dialysis. Goals to Promote Your Health * To prevent worsening of your condition and complications * To maintain your health at the optimal level Directions to Meet Your Goals Take your medications as prescribed Follow your dietary instruction Follow activity as directed Keep your appointments as scheduled Take your immunizations and boosters as scheduled If your symptoms worsen call your PCP, if no PCP go to Urgent Care Center or Emergency Room Smoking is Dangerous to Your Health. Avoid second hand smoke Call the 24-hour hour crisis hotline for domestic abuse at Sonia Andrade Aug 02, 2017 16:30
[2017-08-02] MEDS ORDERED: SENS60TA PO (16:49)
[2017-08-02] MEDS ORDERED: METO50TA PO (16:49)
[2017-08-02] MEDS ORDERED: SEVEL800 PO (16:49)
[2017-08-02] MEDS ORDERED: FURO80TA PO (16:49)
[2017-08-02] MEDS ORDERED: AMLO10TA2 PO (16:49)
[2017-08-02] MEDS ORDERED: FOLI1TAB6 PO (17:09)
[2017-08-02] MEDS ORDERED: THERTAB15 PO (17:09)
[2017-08-02] MEDS ORDERED: GNP100TA3 PO (17:09)
== END 2017-08-02 17:41 | disposition home or self-care (01) ==
LOC: NEPE 17:06 → NEDA 19:42 → NEPGCP 20:46 → UNDODISOB 08-02 16:18
PROVIDERS: ADMIT Hospitalist; ATTEND Hospitalist
DX: F10.229 Alcohol dependence with intoxication, unspecified (principal); I12.0 Hypertensive chronic kidney disease with stage 5 chronic kidney disease or end stage renal disease; N18.6 End stage renal disease; D63.1 Anemia in chronic kidney disease; Z91.19 Patient's noncompliance with other medical treatment and regimen; E87.2 Acidosis; Z99.2 Dependence on renal dialysis; F17.210 Nicotine dependence, cigarettes, uncomplicated; R94.31 Abnormal electrocardiogram [ECG] [EKG]
CPT/HCPCS: 70450; 71010; 80053; 80307; 82550; 82552; 84484; 85025; 93005; 96361; 96365; 96374; 96375; 99285; G0257; G0378; J3411; J7030; Q4081; 90935

== ENCOUNTER 2017-11-21 10:46 | Emergency (ER) | payer MEDICARE, OTHER ==
[~2017-11-21 10:46] MED LIST changes: -ACYC200C66 PO; +AMLO10TA2 PO; -CINA30 PO; +FOLI1TAB6 PO; -FURO1TAB61 PO; +FURO80TA PO; +METO50TA PO; -METO50TA11 PO; -NEPHRO PO; -PANT40TA3 PO; +SENS60TA PO; +THERTAB15 PO; +THIA100 PO; -[UNRECOGNIZED DRUG - OTHER] PO
[2017-11-21 10:48] VITALS: BP 166/93; PULSE 83; RESP 16; TEMP 97.5; O2SAT 98
--- NOTE | 2017-11-21 13:23 | PD ---
HPI Chief Complaint: Cold / Flu Symptoms Time Seen by Provider: 13:10 Travel History International Travel<30 days: No Contact w/Intl Traveler<30days: No Traveled to known affect area: No History of Present Illness HPI The patient is a 62-year-old male presents emergency department for one day of cough and cold symptoms. The patient states he developed a productive cough producing white sputum last night, denies any outright shortness of breath. He also complains of subjective fevers without chills or sweats. He does complain of mild nasal congestion, denies any chest pain, nausea, vomiting, diarrhea, or abdominal pain. The patient does have a history of end-stage renal disease and is currently on hemodialysis, is scheduled for hemodialysis today at 2:15 PM. Symptoms are moderate without any alleviating or exacerbating factors. He does smoke cigarettes, denies any known history of COPD. PFSH Past Medical History Hx Anticoagulant Therapy: No Anemia: Yes Arthritis: Yes Asthma: No Autoimmune Disease: No Blood Disorders: No Bipolar Disorder: Yes Anxiety: No Depression: No Heart Rhythm Problems: No Cancer: Yes (SKIN) Cardiovascular Problems: Yes (HTN) High Cholesterol: No Chemotherapy: Yes Chest Pain: No Congestive Heart Failure: No COPD: No Cerebrovascular Accident: No Diabetes: No Dialysis: Yes (MON, WED, FRI) Diminished Hearing: No Endocrine: No Gastrointestinal Disorders: Yes (GI BLEED) Genitourinary: Yes Hypertension: Yes Immune Disorder: No Implanted Vascular Access Dvce: Yes Kidney Stones: No Musculoskeletal: Yes Neurologic: No Psychiatric: No Reproductive: No Respiratory: No Integumentary: Yes Immunizations Current: Yes Radiation Therapy: Yes Renal Failure: Yes Seizures: No Sickle Cell Disease: No Sleep Apnea: No Past Surgical History Abdominal Surgery: Yes (HERNIA REPAIR, STOMACH SURGERY, LESION IN COLON CAUTERIZED 11/2016(GIBLEED)) AICD: No Arteriovenous Shunt: No Body Medical Devices: DIALYSIS SHUNT IN LEFT ARM Cardiac Surgery: No Ear Surgery: No Endocrine Surgery: No Eye Surgery: No Genitourinary Surgery: No Hysterectomy: No Insulin Pump: No Joint Replacement: No Oral Surgery: No Pacemaker: No Thoracic Surgery: No Other Surgery: Yes (NECK SURGERY/TUMOR; L FISTULA, HERNIA REPAIR) Social History Alcohol Use: Yes (UTO) Tobacco Use: Yes (5 cigarretes per day) Substance Use: No (pt denies) Allergies-Medications (Allergen,Severity, Reaction): Coded Allergies: paliperidone (Verified Allergy, Intermediate, hives, 08/01/17) risperidone (Verified Allergy, Intermediate, hives, 08/01/17) valproic acid (Verified Allergy, Intermediate, Anaphylaxis, 08/01/17) bupropion (Verified Adverse Reaction, Severe, SEIZURE, 08/01/17) chlorpromazine (Verified Adverse Reaction, Severe, SEIZURE, 08/01/17) haloperidol (Verified Adverse Reaction, Severe, SEIZURE, 08/01/17) lithium (Verified Adverse Reaction, Intermediate, Anaphylaxis, 08/01/17) varenicline (Verified Adverse Reaction, Intermediate, Hypertension, ) Reported Meds & Prescriptions Reported Meds & Active Scripts Active Thera/Beta-Carotene (Multiple Vitamin) 1 Tab Tab 1 Tab PO DAILY 30 Days Gnp Vitamin B-1 (Thiamine HCl) 100 Mg Tab 100 Mg PO DAILY 30 Days Folic Acid 1 Mg Tablet 1 Mg PO DAILY 30 Days Reported Renvela (Sevelamer Carbonate) 800 Mg Tab 1,600 Mg PO TID Sensipar (Cinacalcet) 60 Mg Tab 60 Mg PO DAILY Furosemide 80 Mg Tab 80 Mg PO DAILY Metoprolol Tartrate 50 Mg Tab 50 Mg PO BID Amlodipine (Amlodipine Besylate) 10 Mg Tab 10 Mg PO DAILY Review of Systems Except as stated in HPI: all other systems reviewed are Neg General / Constitutional: Positive: Fever (subjective), No: Chills HENT: Positive: Congestion Respiratory: Positive: Cough, No: Shortness of Breath Gastrointestinal: No: Nausea, Vomiting, Diarrhea, Abdominal Pain Musculoskeletal: No: Myalgias Physical Exam Narrative GENERAL: Awake, alert, pleasant 62-year-old male who appears his stated age and is in no acute respiratory distress. SKIN: Focused skin assessment warm/dry. HEAD: Atraumatic. Normocephalic. EYES: No injection or drainage. ENT: No nasal bleeding or discharge. Mucous membranes pink and moist. NECK: Trachea midline. No JVD. CARDIOVASCULAR: Regular rate and rhythm. No murmur appreciated. RESPIRATORY: No accessory muscle use. Few scattered wheezes. GASTROINTESTINAL: Abdomen soft, non-tender, nondistended. No rebound tenderness. MUSCULOSKELETAL: No obvious deformities. No clubbing. No cyanosis. No edema. Left upper extremity AV fistula with positive thrill. NEUROLOGICAL: Awake and alert. No obvious cranial nerve deficits. Motor grossly within normal limits. Normal speech. PSYCHIATRIC: Appropriate mood and affect; insight and judgment normal. Data Data Last Documented VS Vital Signs Date Time Temp Pulse Resp B/P (MAP) Pulse Ox O2 Delivery O2 Flow Rate FiO2 11/21/17 10:48 97.5 83 16 166/93 (117) 98 Orders Orders Chest, Single Ap (11/21/17 ) Influenzae A/B Antigen (11/21/17 13:15) MDM Medical Decision Making Medical Screen Exam Complete: Yes Emergency Medical Condition: Yes Medical Record Reviewed: Yes Interpretation(s) Last Impressions Chest X-Ray 11/21/17 0000 Signed Impressions: Service Date/Time: Tuesday, November 21, 2017 13:23 - CONCLUSION: Compensated cardiomegaly with minimal parenchymal changes left base Phillip Fragoso MD FACR Date/Time Source Procedure Growth Status 11/21/17 13:55 Nasal Aspirate Influenza Types A,B Antigen (LIZY) - Final Positive For Flu B Antigen Complete Differential Diagnosis Differential diagnosis includes influenza, bronchitis, URI, COPD, pneumonia, reactive airway disease, pleural effusion, congestive heart failure, cardiomyopathy. Narrative Course Chest x-ray was performed. Influenza screen was sent to lab. Chest x-rays negative. Influenza screen is positive for influenza B. The patient will be placed on Tamiflu. He is advised to follow-up with dialysis. Diagnosis Primary Impression: Influenza B Patient Instructions: General Instructions Additional Instructions: Tamiflu as directed. Follow-up with your dialysis physician and dialysis. Return for shortness of breath or progressing symptoms. Please provide the patient a copy of his chest x-ray results and influenza results at discharge. Med/Other Pt SpecificInfo: Prescription(s) given Scripts Oseltamivir (Tamiflu) 75 Mg Cap 75 MG PO BID for Mgmt Viral Infection for 5 Days, #10 CAP 0 Refills Prov: Nilo Bui MD 11/21/17 Disposition: 01 DISCHARGE HOME Condition: Stable Nilo Bui MD Nov 21, 2017 13:23
--- NOTE | 2017-11-21 13:46 | RADRPT ---
EXAM DATE/TIME: 11/21/2017 13:23 [facility] COMPARISON: CHEST SINGLE AP, August 01, 2017, 18:53. INDICATIONS : Very short of breath for at least 8 hours today, no chest pain MEDICAL HISTORY : Hypertension. Renal failure, chronic. dialysis SURGICAL HISTORY : None. ENCOUNTER: Initial ACUITY: 1 day PAIN SCORE: 0/10 LOCATION: Bilateral chest FINDINGS: The lungs are clear. The heart is minimally enlarged. The pulmonary vascularity is normal. Minimal p artial changes left base. The portion of the bony skeleton visualized is unremarkable. CONCLUSION: Compensated cardiomegaly with minimal parenchymal changes left base Phillip Fragoso MD FACR on November 21, 2017 at 13:43 Board Certified Radiologist. This report was verified electronically.
[2017-11-21] MEDS ORDERED: OSEL75 PO (14:34)
== END 2017-11-21 14:53 | disposition home or self-care (01) ==
LOC: NEPD 10:46
DX: J11.1 Influenza due to unidentified influenza virus with other respiratory manifestations (principal); I51.7 Cardiomegaly; I12.0 Hypertensive chronic kidney disease with stage 5 chronic kidney disease or end stage renal disease; N18.6 End stage renal disease; D63.1 Anemia in chronic kidney disease; M19.90 Unspecified osteoarthritis, unspecified site; F31.9 Bipolar disorder, unspecified; F17.210 Nicotine dependence, cigarettes, uncomplicated; Z99.2 Dependence on renal dialysis
CPT/HCPCS: 71045; 87804; 99284

== ENCOUNTER 2017-12-29 10:04 | Emergency (ER) | payer MEDICARE ==
[~2017-12-29] VITALS: Ht 182.9 cm; Wt 80.0 kg
[~2017-12-29 10:04] MED LIST changes: +ALLOPOW4 PO; +FOLI1 PO; +FURO10S PO; +OSEL75 PO; +THERM PO; +THIA100T PO
[2017-12-29] MEDS ORDERED: SODIUM CHLORIDE 0.9% FLUSH 10 ML FLUSH IV FLUSH PRN (10:15)
[2017-12-29 10:17] VITALS: BP 105/60; PULSE 55; RESP 20; TEMP 97.4; O2SAT 96
[2017-12-29 10:20] VITALS: O2SAT 96
--- NOTE | 2017-12-29 10:47 | PD ---
HPI Chief Complaint: Altered Mental Status Time Seen by Provider: 10:11 Travel History International Travel<30 days: No Contact w/Intl Traveler<30days: No Traveled to known affect area: No History of Present Illness HPI This is a 62-year-old male with a history of renal failure, alcohol abuse, who presents today with complaints of altered mental status and slurred speech. According to the paramedics, the patient was scheduled to be seen by a new primary care physician. According to them when he arrived, they found him altered with slurred speech and called 911. Several staff here in the emergency [place] know this patient. He states he is at his baseline. The patient is in no distress. He has no complaints. He states he last had dialysis on Friday. He states he is scheduled for dialysis this afternoon and wishes to go. There are no other issues with this patient at this time. PFSH Past Medical History Hx Anticoagulant Therapy: No Anemia: Yes Arthritis: Yes Asthma: No Autoimmune Disease: No Blood Disorders: No Bipolar Disorder: Yes Anxiety: No Depression: No Heart Rhythm Problems: No Cancer: Yes (SKIN) Cardiovascular Problems: Yes (HTN) High Cholesterol: No Chemotherapy: Yes Chest Pain: No Congestive Heart Failure: No COPD: No Cerebrovascular Accident: No Diabetes: No Dialysis: Yes (FRI, FRI, FRI) Diminished Hearing: No Endocrine: No Gastrointestinal Disorders: Yes (GI BLEED) Genitourinary: Yes Heparin Induced Thrombocytopen: No Hypertension: Yes Immune Disorder: No Implanted Vascular Access Dvce: Yes Kidney Stones: No Musculoskeletal: Yes Neurologic: No Psychiatric: No Reproductive: No Respiratory: No Integumentary: Yes Immunizations Current: Yes Radiation Therapy: Yes Renal Failure: Yes Seizures: No Sickle Cell Disease: No Sleep Apnea: No Thyroid Disease: No Past Surgical History Abdominal Surgery: Yes (HERNIA REPAIR, STOMACH SURGERY, LESION IN COLON CAUTERIZED 11/2016(GIBLEED)) AICD: No Arteriovenous Shunt: No Body Medical Devices: DIALYSIS SHUNT IN LEFT ARM Cardiac Surgery: No Ear Surgery: No Endocrine Surgery: No Eye Surgery: No Genitourinary Surgery: No Hysterectomy: No Insulin Pump: No Joint Replacement: No Neurologic Surgery: No Oral Surgery: No Pacemaker: No Thoracic Surgery: No Other Surgery: Yes (NECK SURGERY/TUMOR; L FISTULA, HERNIA REPAIR) Social History Alcohol Use: Yes (FLO) Tobacco Use: Yes (5 cigarretes per day) Substance Use: No (pt denies) Allergies-Medications (Allergen,Severity, Reaction): Coded Allergies: paliperidone (Verified Allergy, Intermediate, hives, 11/21/17) risperidone (Verified Allergy, Intermediate, hives, 11/21/17) valproic acid (Verified Allergy, Intermediate, Anaphylaxis, 11/21/17) No Known Allergies (Unverified Allergy, 12/06/17) bupropion (Verified Adverse Reaction, Severe, SEIZURE, 11/21/17) chlorpromazine (Verified Adverse Reaction, Severe, SEIZURE, 11/21/17) haloperidol (Verified Adverse Reaction, Severe, SEIZURE, 11/21/17) lithium (Verified Adverse Reaction, Intermediate, Anaphylaxis, 11/21/17) varenicline (Verified Adverse Reaction, Intermediate, Hypertension, ) Reported Meds & Prescriptions Reported Meds & Active Scripts Active Tamiflu (Oseltamivir Phosphate) 75 Mg Cap 75 Mg PO BID 5 Days Thera/Beta-Carotene (Multiple Vitamin) 1 Tab Tab 1 Tab PO DAILY 30 Days Gnp Vitamin B-1 (Thiamine HCl) 100 Mg Tab 100 Mg PO DAILY 30 Days Folic Acid 1 Mg Tablet 1 Mg PO DAILY 30 Days Vitamin B1 (Thiamine HCl) 100 Mg Tab 100 Mg PO DAILY 5 Days Thera M Plus (Multivitamins/Minerals Therap) 1 Tab Tab 1 Tab PO DAILY 30 Days Folate 1 Mg Tab (Folic Acid) 1 Mg Tab 1 Mg PO DAILY 30 Days Reported Renvela (Sevelamer Carbonate) 800 Mg Tab 1,600 Mg PO TID Sensipar (Cinacalcet) 60 Mg Tab 60 Mg PO DAILY Furosemide 80 Mg Tab 80 Mg PO DAILY Metoprolol Tartrate 50 Mg Tab 50 Mg PO BID Amlodipine (Amlodipine Besylate) 10 Mg Tab 10 Mg PO DAILY Renvela (Sevelamer Carbonate) 800 Mg Tab 800 Mg PO TID *TAKE WITH MEALS* Furosemide 10 Mg/Ml Nandini 20 Mg PO DAILY Allopurinol Pow 1 Tab PO DAILY Metoprolol Tartrate 50 mg (Metoprolol Tartrate) 50 Mg Tab 50 Mg PO BID Review of Systems Except as stated in HPI: all other systems reviewed are Neg General / Constitutional: No: Fever HENT: No: Headaches, Neck Pain Cardiovascular: No: Chest Pain or Discomfort, Palpitations Respiratory: No: Cough, Shortness of Breath Gastrointestinal: No: Nausea, Vomiting, Abdominal Pain Musculoskeletal: No: Weakness, Pain Skin: No Rash, No Lesions Neurologic: Positive: Slurred Speech, No: Weakness, Dizziness, Headache, Change in Mentation Physical Exam Narrative GENERAL: Well-developed well-nourished male in no acute distress. IN: SKIN: Focused skin assessment warm/dry. HEAD: Atraumatic. Normocephalic. EYES: No scleral icterus. No injection or drainage. ENT: No nasal bleeding or discharge. Mucous membranes pink and moist. NECK: Trachea midline. No JVD. Supple. CARDIOVASCULAR: Regular rate and rhythm. No murmur appreciated. RESPIRATORY: No accessory muscle use. Clear to auscultation. Breath sounds equal bilaterally. GASTROINTESTINAL: Abdomen soft, non-tender, nondistended. MUSCULOSKELETAL: No obvious deformities. No clubbing. No cyanosis. No edema. NEUROLOGICAL: Awake and alert. No obvious cranial nerve deficits. Motor grossly within normal limits. Baseline slurred speech Data Data Last Documented VS Vital Signs Date Time Temp Pulse Resp B/P (MAP) Pulse Ox O2 Delivery O2 Flow Rate FiO2 12/29/17 11:31 57 18 119/72 (88) 100 Room Air 12/29/17 10:17 97.4 Orders Orders Electrocardiogram (12/29/17 10:11) Ammonia (12/29/17 10:11) Complete Blood Count With Diff (12/29/17 10:11) Comprehensive Metabolic Panel (12/29/17 10:11) Creatine Kinase (Cpk) (12/29/17 10:11) Troponin I (12/29/17 10:11) Thyroid Stimulating Hormone (12/29/17 10:11) Chest, Single Ap (12/29/17 10:11) Ct Brain W/O Iv Contrast(Rout) (12/29/17 10:11) Blood Glucose (12/29/17 10:11) Ecg Monitoring (12/29/17 10:11) Iv Access Insert/Monitor (12/29/17 10:11) Oximetry (12/29/17 10:11) Sodium Chloride 0.9% Flush (Ns Flush) (12/29/17 10:15) Labs Laboratory Tests Test 12/29/17 10:45 12/29/17 10:50 White Blood Count 5.0 TH/MM3 Red Blood Count 4.47 MIL/MM3 Hemoglobin 14.4 GM/DL Hematocrit 43.5 % Mean Corpuscular Volume 97.3 FL Mean Corpuscular Hemoglobin 32.2 PG Mean Corpuscular Hemoglobin Concent 33.1 % Red Cell Distribution Width 17.0 % Platelet Count 354 TH/MM3 Mean Platelet Volume 7.9 FL Neutrophils (%) (Auto) 82.9 % Lymphocytes (%) (Auto) 11.9 % Monocytes (%) (Auto) 4.4 % Eosinophils (%) (Auto) 0.4 % Basophils (%) (Auto) 0.4 % Neutrophils # (Auto) 4.1 TH/MM3 Lymphocytes # (Auto) 0.6 TH/MM3 Monocytes # (Auto) 0.2 TH/MM3 Eosinophils # (Auto) 0.0 TH/MM3 Basophils # (Auto) 0.0 TH/MM3 CBC Comment DIFF FINAL Differential Comment Blood Urea Nitrogen 45 MG/DL Creatinine 7.93 MG/DL Random Glucose 71 MG/DL Total Protein 8.4 GM/DL Albumin 3.7 GM/DL Calcium Level 6.6 MG/DL Alkaline Phosphatase 390 U/L Aspartate Amino Transf (AST/SGOT) 35 U/L Alanine Aminotransferase (ALT/SGPT) 18 U/L Total Bilirubin 0.3 MG/DL Sodium Level 137 MEQ/L Potassium Level 5.2 MEQ/L Chloride Level 104 MEQ/L Carbon Dioxide Level 18.9 MEQ/L Anion Gap 14 MEQ/L Estimat Glomerular Filtration Rate 7 ML/MIN Protein Corrected Calcium MG/DL Total Creatine Kinase 113 U/L Troponin I LESS THAN 0.02 NG/ML Thyroid Stimulating Hormone 3rd Gen 0.672 uIU/ML Ammonia 18 MCMOL/L [facility] Medical Decision Making Medical Screen Exam Complete: Yes Emergency Medical Condition: Yes Differential Diagnosis Metabolic derangement versus CVA versus TIA versus infection Narrative Course This is a 62-year-old male with a history of renal failure, dialysis dependent, presents via EMS after he apparently presented to a new doctor's office. According to the medics they were concerned because he had slurred speech. The patient has a history of slurred speech and this is his baseline. He is awake appropriate. He wants to be discharged so that he can go get dialysis. The patient has a potassium of 5.2. His calcium is 6.6. He is scheduled for dialysis today. He will be discharged. Case management is working on getting him a Pass of the can go to the dialysis center. Diagnosis Primary Impression: End stage renal disease Additional Impressions: Hypocalcemia Tobacco abuse HTN (hypertension) Dependent on hemodialysis Additional Instructions: Return as needed. Go to dialysis. Disposition: 01 DISCHARGE HOME Condition: Stable Felice Beard MD Dec 29, 2017 10:47
[2017-12-29 11:13] LABS: AUTOMATED NEUTROPHIL # 4.1 TH/MM3 (1.8-7.7); BASOPHIL % 0.4 % (0.0-2.0); EOSINOPHIL % 0.4 % (0.0-4.0); HEMATOCRIT 43.5 % (39.0-51.0); HEMOGLOBIN 14.4 GM/DL (13.0-17.0); LYMPH % 11.9 % (9.0-44.0); LYMPHOCYTE # 0.6 TH/MM3 (1.0-4.8); MEAN CELL VOLUME 97.3 FL (80.0-100.0); MEAN CORPUSCULAR HEMOGLOBIN 32.2 PG (27.0-34.0); MEAN CORPUSCULAR HGB CONC 33.1 % (32.0-36.0); MEAN PLATELET VOLUME 7.9 FL (7.0-11.0); MONO % 4.4 % (0.0-8.0); MONOCYTE # 0.2 TH/MM3 (0-0.9); NEUT % 82.9 % (16.0-70.0); PLATELET COUNT 354 TH/MM3 (150-450); RED BLOOD COUNT 4.47 MIL/MM3 (4.50-5.90)
--- NOTE | 2017-12-29 11:13 | RADRPT ---
EXAM DATE/TIME: 12/29/2017 10:27 [facility] COMPARISON: CHEST SINGLE AP, November 21, 2017, 13:23. INDICATIONS : Shortness of breath, altered mental status. MEDICAL HISTORY : Hypertension. Renal failure, chronic. SURGICAL HISTORY : None. ENCOUNTER: Initial ACUITY: 1 day PAIN SCORE: Non-responsive. LOCATION: Bilateral chest FINDINGS: The lungs are clear. The heart is minimally enlarged. The pulmonary vascularity is normal. There is n o evidence for infiltrate or failure. The portion of the bony skeleton visualized is unremarkable. CONCLUSION: Compensated cardiomegaly otherwise negative Phillip Fragoso MD FACR on December 29, 2017 at 11:11 Board Certified Radiologist. This report was verified electronically.
--- NOTE | 2017-12-29 11:25 | RADRPT ---
EXAM DATE/TIME: 12/29/2017 11:15 [facility] COMPARISON: CT BRAIN W/O CONTRAST, August 01, 2017, 18:05. INDICATIONS : Altered mental status RADIATION DOSE: 56.35 CTDIvol (mGy) MEDICAL HISTORY : Hypertension. SURGICAL HISTORY : None. ENCOUNTER: Initial ACUITY: 1 day PAIN SCALE: 0/10 LOCATION: cranial TECHNIQUE: Multiple contiguous axial images were obtained of the head. Using automated exposure control and adj ustment of the mA and/or kV according to patient size, radiation dose was kept as low as reasonably a chievable to obtain optimal diagnostic quality images. DICOM format image data is available electro nically for review and comparison. FINDINGS: CEREBRUM: The ventricles are normal for age. No evidence of midline shift, mass lesion, hemorrhage or acute in farction. No extra-axial fluid collections are seen. POSTERIOR FOSSA: The cerebellum and brainstem are intact. The 4th ventricle is midline. The cerebellopontine angle i s unremarkable. EXTRACRANIAL: The visualized portion of the orbits is intact. SKULL: The calvaria is intact. No evidence of skull fracture. CONCLUSION: Negative for acute process. Phillip Fragoso MD FACR on December 29, 2017 at 11:23 Board Certified Radiologist. This report was verified electronically.
[2017-12-29 11:31] VITALS: BP 119/72; PULSE 57; RESP 18; O2SAT 100
[2017-12-29 11:53] LABS: ALBUMIN 3.7 GM/DL (3.4-5.0); CHLORIDE 104 MEQ/L (98-107); CREATININE 7.93 MG/DL (0.60-1.30); GLOMERULAR FILTRATION RATE 7 ML/MIN (>89)
[2017-12-29 11:54] LABS: BICARBONATE 18.9 MEQ/L (21.0-32.0); GLUCOSE,RANDOM 71 MG/DL (74-106); SODIUM (NA) 137 MEQ/L (136-145)
[2017-12-29 11:56] LABS: ALT (GPT) 18 U/L (12-78); AST (GOT) 35 U/L (15-37); BLOOD UREA NITROGEN 45 MG/DL (7-18)
[2017-12-29 11:59] LABS: TOTAL PROTEIN 8.4 GM/DL (6.4-8.2)
[2017-12-29 12:02] LABS: ALKALINE PHOSPHATASE 390 U/L (45-117); TROPONIN I LESS THAN 0.02 NG/ML (0.02-0.05)
[2017-12-29 12:03] LABS: TOTAL BILIRUBIN ADULT 0.3 MG/DL (0.2-1.0)
[2017-12-29 12:09] LABS: CALCIUM 6.6 MG/DL (8.5-10.1)
[2017-12-29 13:30] VITALS: BP 132/69
--- NOTE | 2017-12-31 07:45 | EKG ---
Date Performed: 12/29/2017 Time Performed: 10:24:57 PTAGE: 62 years EKG: SINUS BRADYCARDIA WITH MARKED SINUS ARRHYTHMIA WITH FIRST DEGREE AV BLOCK POSSIBLE LEFT ATR IAL ENLARGEMENT LEFT ANTERIOR FASCICULAR BLOCK ST DEVIATION AND MODERATE T-WAVE ABNORMALITY, CONSIDER LATERAL ISCHEMIA ABNORMAL ECG PREVIOUS TRACING : 08/01/2017 18.27 Compared to the prior tracing, left axis deviation is new. ST abnormality appears similar to the prior tracing. DOCTOR: Bird Rivera Interpretating Date/Time 12/31/2017 07:45:13
== END 2017-12-29 13:37 | disposition home or self-care (01) ==
LOC: NEPE 10:04
DX: I12.0 Hypertensive chronic kidney disease with stage 5 chronic kidney disease or end stage renal disease (principal); N18.6 End stage renal disease; Z99.2 Dependence on renal dialysis; F17.210 Nicotine dependence, cigarettes, uncomplicated; E83.51 Hypocalcemia; I44.0 Atrioventricular block, first degree; R00.1 Bradycardia, unspecified; M19.90 Unspecified osteoarthritis, unspecified site; F31.9 Bipolar disorder, unspecified; Z85.828 Personal history of other malignant neoplasm of skin; Z88.8 Allergy status to other drugs, medicaments and biological substances
CPT/HCPCS: 70450; 71045; 80053; 82140; 82550; 84443; 84484; 85025; 93005; 99285

== ENCOUNTER 2018-02-12 10:40 | Emergency (ER) | payer MEDICARE ==
[~2018-02-12] VITALS: Ht 188 cm; Wt 79.4 kg
[2018-02-12 10:47] VITALS: BP 102/64; PULSE 63; RESP 16; TEMP 97.9; O2SAT 97
[2018-02-12 11:08] VITALS: BP 105/66; PULSE 64; RESP 17; O2SAT 95
--- NOTE | 2018-02-12 11:14 | PD ---
HPI Chief Complaint: Medical Clearance Time Seen by Provider: 10:58 Travel History International Travel<30 days: No Contact w/Intl Traveler<30days: No Traveled to known affect area: No History of Present Illness HPI PFSH Past Medical History Hx Anticoagulant Therapy: No Anemia: Yes Arthritis: Yes Asthma: No Autoimmune Disease: No Blood Disorders: No Bipolar Disorder: Yes Anxiety: No Depression: No Heart Rhythm Problems: No Cancer: Yes (SKIN) Cardiovascular Problems: Yes (HTN) High Cholesterol: No Chemotherapy: Yes Chest Pain: No Congestive Heart Failure: No COPD: No Cerebrovascular Accident: No Diabetes: No Dialysis: Yes (MON, WED, FRI) Diminished Hearing: No Endocrine: No Gastrointestinal Disorders: Yes (GI BLEED) Genitourinary: Yes Heparin Induced Thrombocytopen: No Hypertension: Yes Immune Disorder: No Implanted Vascular Access Dvce: Yes Kidney Stones: No Musculoskeletal: Yes Neurologic: No Psychiatric: No Reproductive: No Respiratory: No Integumentary: Yes Immunizations Current: Yes Radiation Therapy: Yes Renal Failure: Yes Seizures: No Sickle Cell Disease: No Sleep Apnea: No Thyroid Disease: No Tetanus Vaccination: < 5 Years Influenza Vaccination: Yes Past Surgical History Abdominal Surgery: Yes (HERNIA REPAIR, STOMACH SURGERY, LESION IN COLON CAUTERIZED 11/2016(GIBLEED)) AICD: No Arteriovenous Shunt: No Body Medical Devices: DIALYSIS SHUNT IN LEFT ARM Cardiac Surgery: No Ear Surgery: No Endocrine Surgery: No Eye Surgery: No Genitourinary Surgery: No Hysterectomy: No Insulin Pump: No Joint Replacement: No Neurologic Surgery: No Oral Surgery: No Pacemaker: No Thoracic Surgery: No Other Surgery: Yes (NECK SURGERY/TUMOR; L FISTULA, HERNIA REPAIR) Social History Alcohol Use: Yes (lightly) Tobacco Use: Yes (5 cigarretes per day) Substance Use: No (pt denies) Allergies-Medications (Allergen,Severity, Reaction): Coded Allergies: paliperidone (Verified Allergy, Intermediate, hives, 02/12/18) risperidone (Verified Allergy, Intermediate, hives, 02/12/18) valproic acid (Verified Allergy, Intermediate, Anaphylaxis, 02/12/18) bupropion (Verified Adverse Reaction, Severe, SEIZURE, 02/12/18) chlorpromazine (Verified Adverse Reaction, Severe, SEIZURE, 02/12/18) haloperidol (Verified Adverse Reaction, Severe, SEIZURE, 02/12/18) lithium (Verified Adverse Reaction, Intermediate, Anaphylaxis, 02/12/18) varenicline (Verified Adverse Reaction, Intermediate, Hypertension, ) Reported Meds & Prescriptions Reported Meds & Active Scripts Active Thera/Beta-Carotene (Multiple Vitamin) 1 Tab Tab 1 Tab PO DAILY 30 Days Gnp Vitamin B-1 (Thiamine HCl) 100 Mg Tab 100 Mg PO DAILY 30 Days Folic Acid 1 Mg Tablet 1 Mg PO DAILY 30 Days Reported Renvela (Sevelamer Carbonate) 800 Mg Tab 1,600 Mg PO TID Sensipar (Cinacalcet) 60 Mg Tab 60 Mg PO DAILY Furosemide 80 Mg Tab 80 Mg PO DAILY Metoprolol Tartrate 50 Mg Tab 50 Mg PO BID Amlodipine (Amlodipine Besylate) 10 Mg Tab 10 Mg PO DAILY Review of Systems Except as stated in HPI: all other systems reviewed are Neg Physical Exam Narrative GENERAL: Well-developed, well-nourished in no apparent distress, appears sleepy SKIN: Focused skin assessment warm/dry. Multiple small scabbing lesions without evidence of HEAD: Atraumatic. Normocephalic. EYES: Pupils equal and round. No scleral icterus. No injection or drainage. PERRLA, EOMI ENT: No nasal bleeding or discharge. Mucous membranes pink and moist. NECK: Trachea midline. No JVD. CARDIOVASCULAR: Regular rate and rhythm. No murmur appreciated. RESPIRATORY: No accessory muscle use. Clear to auscultation. Breath sounds equal bilaterally. GASTROINTESTINAL: Abdomen soft, non-tender, nondistended. Hepatic and splenic margins not palpable. MUSCULOSKELETAL: No obvious deformities. No clubbing. No cyanosis. No edema. NEUROLOGICAL: Awake and alert. No obvious cranial nerve deficits. Motor grossly within normal limits. Slurred speech PSYCHIATRIC: Appropriate mood and affect; insight and judgment normal. Data Data Last Documented VS Vital Signs Date Time Temp Pulse Resp B/P (MAP) Pulse Ox O2 Delivery O2 Flow Rate FiO2 02/12/18 13:05 74 18 118/69 (85) 95 02/12/18 11:08 Room Air 02/12/18 10:47 97.9 Orders Orders Complete Blood Count With Diff (02/12/18 11:11) Comprehensive Metabolic Panel (02/12/18 11:11) Sodium Chlor 0.9% 1000 Ml Inj (Ns 1000 M (02/12/18 11:30) Ed Discharge Order (02/12/18 12:55) Labs Laboratory Tests Test 02/12/18 11:52 White Blood Count 3.4 TH/MM3 Red Blood Count 3.42 MIL/MM3 Hemoglobin 10.6 GM/DL Hematocrit 31.9 % Mean Corpuscular Volume 93.3 FL Mean Corpuscular Hemoglobin 31.1 PG Mean Corpuscular Hemoglobin Concent 33.3 % Red Cell Distribution Width 17.4 % Platelet Count 238 TH/MM3 Mean Platelet Volume 7.7 FL Neutrophils (%) (Auto) 72.3 % Lymphocytes (%) (Auto) 18.3 % Monocytes (%) (Auto) 8.5 % Eosinophils (%) (Auto) 0.3 % Basophils (%) (Auto) 0.6 % Neutrophils # (Auto) 2.5 TH/MM3 Lymphocytes # (Auto) 0.6 TH/MM3 Monocytes # (Auto) 0.3 TH/MM3 Eosinophils # (Auto) 0.0 TH/MM3 Basophils # (Auto) 0.0 TH/MM3 CBC Comment DIFF FINAL Differential Comment Blood Urea Nitrogen 55 MG/DL Creatinine 8.13 MG/DL Random Glucose 67 MG/DL Total Protein 6.9 GM/DL Albumin 2.8 GM/DL Calcium Level 7.3 MG/DL Alkaline Phosphatase 268 U/L Aspartate Amino Transf (AST/SGOT) 42 U/L Alanine Aminotransferase (ALT/SGPT) 20 U/L Total Bilirubin 0.3 MG/DL Sodium Level 130 MEQ/L Potassium Level 4.2 MEQ/L Chloride Level 95 MEQ/L Carbon Dioxide Level 17.8 MEQ/L Anion Gap 17 MEQ/L Estimat Glomerular Filtration Rate 7 ML/MIN Protein Corrected Calcium 7.4 MG/DL [facility] Medical Decision Making Medical Screen Exam Complete: Yes Emergency Medical Condition: Yes Differential Diagnosis Medication noncompliance, end-stage renal disease, hyperkalemia, treatment noncompliance Narrative Course 62-year-old male presents emergency department via [facility], ambulance service for an unknown reason. Patient states that he does not know why he came to the emergency department today or he was brought here. According to the triage nurse patient was dropped off by a woman who states that he need to be checked out as he did not have dialysis yesterday. When questioning, patient states he "did not get there" patient does not know why he did not get there or does not tell me. Says he has hemodialysis [facility] here in [place]. He denies any fevers, chills, chest pain, shortness of breath. Denies any abdominal pain or leg pain. He has no complaints today. He does admit to drinking 1 beer today. Says he normally drinks 2 beers per day and denies any history of withdrawal. He has no complaints today. After review the EMR, it appears that patient has been to the emergency department several times for similar symptoms. Patient does slur his speech today however, according to the notes this is normal for the patient. Patient does not exhibit any evidence of weakness or abnormal finding. Labs ordered. Patient administered 1 L normal saline IV as his mucus membranes were on the dry side. CBC & BMP Diagram 02/12/18 11:52 Total Protein 6.9, Albumin 2.8 L, Calcium Level 7.3 *L, Alkaline Phosphatase 268 H, Aspartate Amino Transf (AST/SGOT) 42 H, Alanine Aminotransferase (ALT/ SGPT) 20, Total Bilirubin 0.3 Potassium is 4.2. His CBC is stable. Corrected calcium is 7.4. Overall, it appears that patient's labs are stable in comparison to the labs December 29, 2017 and I believe that patient will remain stable for his dialysis treatment tomorrow. I do not believe he requires any more treatment today and is okay to go home. He is strongly advised to follow-up for dialysis. He should return to the emergency department for any symptoms of weakness, heart palpitations. Also return if he is unable to get his dialysis treatment tomorrow. Patient was ambulatory out of the emergency department today without issue. Diagnosis Primary Impression: ESRD (end stage renal disease) on dialysis Additional Impression: Hypocalcemia Referrals: Dialysis Primary Care Physician Additional Instructions: Follow up with the dialysis center TOMORROW, as scheduled. If you develop heart palpitations or weakness, return to the ED for further evaluation. Follow up with your primary care physician this week. Disposition: 01 DISCHARGE HOME Condition: Stable Rosita Ramesh Feb 12, 2018 11:14
[2018-02-12] MEDS ORDERED: SODIUM CHLOR 0.9% 1000 ML INJ 1,000 ML IV ONE (11:30)
[2018-02-12 12:04] LABS: AUTOMATED NEUTROPHIL # 2.5 TH/MM3 (1.8-7.7); BASOPHIL % 0.6 % (0.0-2.0); EOSINOPHIL % 0.3 % (0.0-4.0); HEMATOCRIT 31.9 % (39.0-51.0); HEMOGLOBIN 10.6 GM/DL (13.0-17.0); LYMPH % 18.3 % (9.0-44.0); LYMPHOCYTE # 0.6 TH/MM3 (1.0-4.8); MEAN CELL VOLUME 93.3 FL (80.0-100.0); MEAN CORPUSCULAR HEMOGLOBIN 31.1 PG (27.0-34.0); MEAN CORPUSCULAR HGB CONC 33.3 % (32.0-36.0); MEAN PLATELET VOLUME 7.7 FL (7.0-11.0); MONO % 8.5 % (0.0-8.0); MONOCYTE # 0.3 TH/MM3 (0-0.9); NEUT % 72.3 % (16.0-70.0); PLATELET COUNT 238 TH/MM3 (150-450); RED BLOOD COUNT 3.42 MIL/MM3 (4.50-5.90); RED CELL DISTRIBUTION WIDTH 17.4 % (11.6-17.2); WHITE BLOOD COUNT 3.4 TH/MM3 (4.0-11.0)
[2018-02-12 12:24] LABS: ALBUMIN 2.8 GM/DL (3.4-5.0); BICARBONATE 17.8 MEQ/L (21.0-32.0); CALCIUM 7.3 MG/DL (8.5-10.1); CREATININE 8.13 MG/DL (0.60-1.30)
[2018-02-12 12:43] LABS: TOTAL BILIRUBIN ADULT 0.3 MG/DL (0.2-1.0); TOTAL PROTEIN 6.9 GM/DL (6.4-8.2)
[2018-02-12 12:49] LABS: CALCIUM-PROTEIN CORRECTED 7.4 MG/DL (8.5-10.1)
--- NOTE | 2018-02-12 13:00 | PD ---
Physical Exam Date Seen by Provider: Feb 12, 2018 Narrative This patient presented to us today because he missed dialysis yesterday. The dielectric embossing machine operator wanted to make sure that he did not need emergent dialysis today. He is not having any shortness of breath. Data Data Last Documented VS Vital Signs Date Time Temp Pulse Resp B/P (MAP) Pulse Ox O2 Delivery O2 Flow Rate FiO2 02/12/18 11:08 64 17 105/66 (79) 95 Room Air 02/12/18 10:47 97.9 Orders Orders Complete Blood Count With Diff (02/12/18 11:11) Comprehensive Metabolic Panel (02/12/18 11:11) Sodium Chlor 0.9% 1000 Ml Inj (Ns 1000 M (02/12/18 11:30) Ed Discharge Order (02/12/18 12:55) Labs Laboratory Tests Test 02/12/18 11:52 White Blood Count 3.4 TH/MM3 Red Blood Count 3.42 MIL/MM3 Hemoglobin 10.6 GM/DL Hematocrit 31.9 % Mean Corpuscular Volume 93.3 FL Mean Corpuscular Hemoglobin 31.1 PG Mean Corpuscular Hemoglobin Concent 33.3 % Red Cell Distribution Width 17.4 % Platelet Count 238 TH/MM3 Mean Platelet Volume 7.7 FL Neutrophils (%) (Auto) 72.3 % Lymphocytes (%) (Auto) 18.3 % Monocytes (%) (Auto) 8.5 % Eosinophils (%) (Auto) 0.3 % Basophils (%) (Auto) 0.6 % Neutrophils # (Auto) 2.5 TH/MM3 Lymphocytes # (Auto) 0.6 TH/MM3 Monocytes # (Auto) 0.3 TH/MM3 Eosinophils # (Auto) 0.0 TH/MM3 Basophils # (Auto) 0.0 TH/MM3 CBC Comment DIFF FINAL Differential Comment Blood Urea Nitrogen 55 MG/DL Creatinine 8.13 MG/DL Random Glucose 67 MG/DL Total Protein 6.9 GM/DL Albumin 2.8 GM/DL Calcium Level 7.3 MG/DL Alkaline Phosphatase 268 U/L Aspartate Amino Transf (AST/SGOT) 42 U/L Alanine Aminotransferase (ALT/SGPT) 20 U/L Total Bilirubin 0.3 MG/DL Sodium Level 130 MEQ/L Potassium Level 4.2 MEQ/L Chloride Level 95 MEQ/L Carbon Dioxide Level 17.8 MEQ/L Anion Gap 17 MEQ/L Estimat Glomerular Filtration Rate 7 ML/MIN Protein Corrected Calcium 7.4 MG/DL MDM Supervised Visit with MAIRA: Yes Narrative Course I, Dr. Henriquez, have reviewed the advance practice practitioner's documentation and am in agreement, met with the patient face to face, made the diagnosis, and the medical decision making was done by me. *My assessment and Findings: The patient is sitting in the bed eating edil crackers in no distress. CBC & BMP Diagram 02/12/18 11:52 Total Protein 6.9, Albumin 2.8 L, Calcium Level 7.3 *L, Alkaline Phosphatase 268 H, Aspartate Amino Transf (AST/SGOT) 42 H, Alanine Aminotransferase (ALT/ SGPT) 20, Total Bilirubin 0.3 Please see Rosita Ramesh PA-C's note for further details, lab and radiology results, final diagnosis and disposition. Diagnosis Primary Impression: ESRD (end stage renal disease) on dialysis Additional Impression: Hypocalcemia Referrals: Dialysis Primary Care Physician Patient Instructions: General Instructions, Hypocalcemia (ED) Departure Forms: Tests/Procedures Additional Instruction: Follow up with the dialysis center TOMORROW, as scheduled. If you develop heart palpitations or weakness, return to the ED for further evaluation. Follow up with your primary care physician this week. Disposition: 01 DISCHARGE HOME Condition: Stable Shanna Henriquez MD Feb 12, 2018 13:00
[2018-02-12 13:05] VITALS: BP 118/69
== END 2018-02-12 13:17 | disposition home or self-care (01) ==
LOC: NEPC 10:40
DX: N18.6 End stage renal disease (principal); E83.51 Hypocalcemia; I12.0 Hypertensive chronic kidney disease with stage 5 chronic kidney disease or end stage renal disease; F31.9 Bipolar disorder, unspecified; F17.210 Nicotine dependence, cigarettes, uncomplicated; Z99.2 Dependence on renal dialysis; Z85.828 Personal history of other malignant neoplasm of skin; Z88.8 Allergy status to other drugs, medicaments and biological substances; Z79.899 Other long term (current) drug therapy
CPT/HCPCS: 80053; 85025; 96360; 99284; J7030; 80048; 80307; 84155; 99283

== ENCOUNTER 2018-02-12 16:56 | Emergency (ER) | payer MEDICARE ==
--- NOTE | 2018-02-12 17:17 | PD ---
HPI Chief Complaint: Alcohol/Drug Intoxication Time Seen by Provider: 17:10 Travel History International Travel<30 days: No Contact w/Intl Traveler<30days: No Traveled to known affect area: No PFSH Past Medical History Hx Anticoagulant Therapy: No Anemia: Yes Arthritis: Yes Asthma: No Autoimmune Disease: No Blood Disorders: No Bipolar Disorder: Yes Anxiety: No Depression: No Heart Rhythm Problems: No Cancer: Yes (SKIN) Cardiovascular Problems: Yes (HTN) High Cholesterol: No Chemotherapy: Yes Chest Pain: No Congestive Heart Failure: No COPD: No Cerebrovascular Accident: No Diabetes: No Dialysis: Yes (MON, FRI, FRI) Diminished Hearing: No Endocrine: No Gastrointestinal Disorders: Yes (GI BLEED) Genitourinary: Yes Heparin Induced Thrombocytopen: No Hypertension: Yes Immune Disorder: No Implanted Vascular Access Dvce: Yes Kidney Stones: No Musculoskeletal: Yes Neurologic: No Psychiatric: No Reproductive: No Respiratory: No Integumentary: Yes Immunizations Current: Yes Radiation Therapy: Yes Renal Failure: Yes Seizures: No Sickle Cell Disease: No Sleep Apnea: No Thyroid Disease: No Past Surgical History Abdominal Surgery: Yes (HERNIA REPAIR, STOMACH SURGERY, LESION IN COLON CAUTERIZED 11/2016(GIBLEED)) AICD: No Arteriovenous Shunt: No Body Medical Devices: DIALYSIS SHUNT IN LEFT ARM Cardiac Surgery: No Ear Surgery: No Endocrine Surgery: No Eye Surgery: No Genitourinary Surgery: No Hysterectomy: No Insulin Pump: No Joint Replacement: No Neurologic Surgery: No Oral Surgery: No Pacemaker: No Thoracic Surgery: No Other Surgery: Yes (NECK SURGERY/TUMOR; L FISTULA, HERNIA REPAIR) Social History Alcohol Use: Yes (lightly) Tobacco Use: Yes (5 cigarretes per day) Substance Use: No (pt denies) Allergies-Medications (Allergen,Severity, Reaction): Coded Allergies: paliperidone (Verified Allergy, Intermediate, hives, 02/12/18) risperidone (Verified Allergy, Intermediate, hives, 02/12/18) valproic acid (Verified Allergy, Intermediate, Anaphylaxis, 02/12/18) bupropion (Verified Adverse Reaction, Severe, SEIZURE, 02/12/18) chlorpromazine (Verified Adverse Reaction, Severe, SEIZURE, 02/12/18) haloperidol (Verified Adverse Reaction, Severe, SEIZURE, 02/12/18) lithium (Verified Adverse Reaction, Intermediate, Anaphylaxis, 02/12/18) varenicline (Verified Adverse Reaction, Intermediate, Hypertension, ) Reported Meds & Prescriptions Reported Meds & Active Scripts Active Thera/Beta-Carotene (Multiple Vitamin) 1 Tab Tab 1 Tab PO DAILY 30 Days Gnp Vitamin B-1 (Thiamine HCl) 100 Mg Tab 100 Mg PO DAILY 30 Days Folic Acid 1 Mg Tablet 1 Mg PO DAILY 30 Days Reported Renvela (Sevelamer Carbonate) 800 Mg Tab 1,600 Mg PO TID Sensipar (Cinacalcet) 60 Mg Tab 60 Mg PO DAILY Furosemide 80 Mg Tab 80 Mg PO DAILY Metoprolol Tartrate 50 Mg Tab 50 Mg PO BID Amlodipine (Amlodipine Besylate) 10 Mg Tab 10 Mg PO DAILY Ann Bravo Feb 12, 2018 17:17
[2018-02-12 17:19] VITALS: BP 103/58; PULSE 75; RESP 18; TEMP 98.4; O2SAT 96
[2018-02-12 17:37] VITALS: RESP 18; O2SAT 100
[2018-02-12 17:39] LABS: BASOPHIL % 0.5 % (0.0-2.0); EOSINOPHIL % 0.6 % (0.0-4.0); HEMATOCRIT 28.2 % (39.0-51.0); HEMOGLOBIN 9.5 GM/DL (13.0-17.0); LYMPH % 21.4 % (9.0-44.0); LYMPHOCYTE # 0.6 TH/MM3 (1.0-4.8); MEAN CELL VOLUME 93.5 FL (80.0-100.0); MEAN CORPUSCULAR HEMOGLOBIN 31.5 PG (27.0-34.0); MEAN CORPUSCULAR HGB CONC 33.7 % (32.0-36.0); MEAN PLATELET VOLUME 7.5 FL (7.0-11.0); MONO % 11.5 % (0.0-8.0); MONOCYTE # 0.3 TH/MM3 (0-0.9); PLATELET COUNT 209 TH/MM3 (150-450); RED BLOOD COUNT 3.02 MIL/MM3 (4.50-5.90); RED CELL DISTRIBUTION WIDTH 17.7 % (11.6-17.2)
[2018-02-12 18:07] LABS: BICARBONATE 19.7 MEQ/L (21.0-32.0); CALCIUM 6.8 MG/DL (8.5-10.1); CREATININE 8.17 MG/DL (0.60-1.30)
[2018-02-12 18:28] LABS: CALCIUM-PROTEIN CORRECTED 7.4 MG/DL (8.5-10.1)
[2018-02-12 18:29] LABS: TOTAL PROTEIN 5.9 GM/DL (6.4-8.2)
--- NOTE | 2018-02-12 18:36 | PD ---
HPI Chief Complaint: Alcohol/Drug Intoxication Time Seen by Provider: 17:10 Travel History International Travel<30 days: No Contact w/Intl Traveler<30days: No Traveled to known affect area: No History of Present Illness HPI CT-year-old male with history of renal failure, alcohol abuse, presents here via EMS intoxicated. Patient was seen earlier today I Dr. young in the [facility]. Patient was found to be intoxicated at that time. He slept it off and was discharged. Apparently one discharge, he purchased alcohol was found with a half a bottle empty of liquor. The patient is stuporous and unable to give clear history of how much he is ingested. He is awake however has slurred speech consistent with alcohol use. He also has a odor consistent with alcohol to his breath. PFSH Past Medical History Hx Anticoagulant Therapy: No Anemia: Yes Arthritis: Yes Asthma: No Autoimmune Disease: No Blood Disorders: No Bipolar Disorder: Yes Anxiety: No Depression: No Heart Rhythm Problems: No Cancer: Yes (SKIN) Cardiovascular Problems: Yes (HTN) High Cholesterol: No Chemotherapy: Yes Chest Pain: No Congestive Heart Failure: No COPD: No Cerebrovascular Accident: No Diabetes: No Dialysis: Yes (MON, WED, FRI) Diminished Hearing: No Endocrine: No Gastrointestinal Disorders: Yes (GI BLEED) Genitourinary: Yes Heparin Induced Thrombocytopen: No Hypertension: Yes Immune Disorder: No Implanted Vascular Access Dvce: Yes Kidney Stones: No Musculoskeletal: Yes Neurologic: No Psychiatric: No Reproductive: No Respiratory: No Integumentary: Yes Immunizations Current: Yes Radiation Therapy: Yes Renal Failure: Yes Seizures: No Sickle Cell Disease: No Sleep Apnea: No Thyroid Disease: No Past Surgical History Abdominal Surgery: Yes (HERNIA REPAIR, STOMACH SURGERY, LESION IN COLON CAUTERIZED 11/2016(GIBLEED)) AICD: No Arteriovenous Shunt: No Body Medical Devices: DIALYSIS SHUNT IN LEFT ARM Cardiac Surgery: No Ear Surgery: No Endocrine Surgery: No Eye Surgery: No Genitourinary Surgery: No Hysterectomy: No Insulin Pump: No Joint Replacement: No Neurologic Surgery: No Oral Surgery: No Pacemaker: No Thoracic Surgery: No Other Surgery: Yes (NECK SURGERY/TUMOR; L FISTULA, HERNIA REPAIR) Social History Alcohol Use: Yes (heavily and often) Tobacco Use: Yes (5 cigarretes per day) Substance Use: No (pt denies) Allergies-Medications (Allergen,Severity, Reaction): Coded Allergies: paliperidone (Verified Allergy, Intermediate, hives, 02/12/18) risperidone (Verified Allergy, Intermediate, hives, 02/12/18) valproic acid (Verified Allergy, Intermediate, Anaphylaxis, 02/12/18) bupropion (Verified Adverse Reaction, Severe, SEIZURE, 02/12/18) chlorpromazine (Verified Adverse Reaction, Severe, SEIZURE, 02/12/18) haloperidol (Verified Adverse Reaction, Severe, SEIZURE, 02/12/18) lithium (Verified Adverse Reaction, Intermediate, Anaphylaxis, 02/12/18) varenicline (Verified Adverse Reaction, Intermediate, Hypertension, ) Reported Meds & Prescriptions Reported Meds & Active Scripts Active Thera/Beta-Carotene (Multiple Vitamin) 1 Tab Tab 1 Tab PO DAILY 30 Days Gnp Vitamin B-1 (Thiamine HCl) 100 Mg Tab 100 Mg PO DAILY 30 Days Folic Acid 1 Mg Tablet 1 Mg PO DAILY 30 Days Reported Renvela (Sevelamer Carbonate) 800 Mg Tab 1,600 Mg PO TID Sensipar (Cinacalcet) 60 Mg Tab 60 Mg PO DAILY Furosemide 80 Mg Tab 80 Mg PO DAILY Metoprolol Tartrate 50 Mg Tab 50 Mg PO BID Amlodipine (Amlodipine Besylate) 10 Mg Tab 10 Mg PO DAILY Review of Systems ROS Limitations: Intoxication (Unable to obtain review of systems secondary to the patient's intoxicated state.) Physical Exam Narrative GENERAL: Well-developed male who is awake however appears to be intoxicated. SKIN: Focused skin assessment warm/dry. HEAD: Atraumatic. Normocephalic. EYES: No scleral icterus. No injection or drainage. ENT: No nasal bleeding or discharge. Mucous membranes pink and moist. NECK: Trachea midline. Supple. CARDIOVASCULAR: Regular rate and rhythm. No murmur appreciated. RESPIRATORY: No accessory muscle use. Clear to auscultation. Breath sounds equal bilaterally. GASTROINTESTINAL: Abdomen soft, non-tender, nondistended. Hepatic and splenic margins not palpable. MUSCULOSKELETAL: No obvious deformities. No clubbing. No cyanosis. No edema. NEUROLOGICAL: Awake and appears impaired. No obvious cranial nerve deficits. Motor grossly within normal limits. Slurred speech. Data Data Last Documented VS Vital Signs Date Time Temp Pulse Resp B/P (MAP) Pulse Ox O2 Delivery O2 Flow Rate FiO2 02/12/18 17:37 18 100 Nasal Cannula 2.00 02/12/18 17:19 98.4 75 Orders Orders Complete Blood Count With Diff (02/12/18 17:17) Basic Metabolic Panel (Bmp) (02/12/18 17:17) Iv Access Insert/Monitor (02/12/18 17:17) Ecg Monitoring (02/12/18 17:17) Oximetry (02/12/18 17:17) Alcohol (Ethanol) (02/12/18 17:17) Protein Corrected Calcium(Pcc) (02/12/18 17:30) Labs Laboratory Tests Test 02/12/18 17:30 White Blood Count 3.0 TH/MM3 Red Blood Count 3.02 MIL/MM3 Hemoglobin 9.5 GM/DL Hematocrit 28.2 % Mean Corpuscular Volume 93.5 FL Mean Corpuscular Hemoglobin 31.5 PG Mean Corpuscular Hemoglobin Concent 33.7 % Red Cell Distribution Width 17.7 % Platelet Count 209 TH/MM3 Mean Platelet Volume 7.5 FL Neutrophils (%) (Auto) 66.0 % Lymphocytes (%) (Auto) 21.4 % Monocytes (%) (Auto) 11.5 % Eosinophils (%) (Auto) 0.6 % Basophils (%) (Auto) 0.5 % Neutrophils # (Auto) 2.0 TH/MM3 Lymphocytes # (Auto) 0.6 TH/MM3 Monocytes # (Auto) 0.3 TH/MM3 Eosinophils # (Auto) 0.0 TH/MM3 Basophils # (Auto) 0.0 TH/MM3 CBC Comment DIFF FINAL Differential Comment Blood Urea Nitrogen 53 MG/DL Creatinine 8.17 MG/DL Random Glucose 115 MG/DL Total Protein 5.9 GM/DL Calcium Level 6.8 MG/DL Sodium Level 132 MEQ/L Potassium Level 3.7 MEQ/L Chloride Level 98 MEQ/L Carbon Dioxide Level 19.7 MEQ/L Anion Gap 14 MEQ/L Estimat Glomerular Filtration Rate 7 ML/MIN Protein Corrected Calcium 7.4 MG/DL Ethyl Alcohol Level 340 MG/DL [facility] Medical Decision Making Medical Screen Exam Complete: Yes Emergency Medical Condition: Yes Differential Diagnosis Alcohol intoxication versus metabolic derangement versus renal failure. Narrative Course 62-year-old male history of alcohol abuse, renal failure, brought in by paramedics for the second time today for intoxication. Patient apparently drank alcohol after being discharged this afternoon. His blood alcohol level is 340. He is currently sleeping and off. He will be signed out to the physician replaced me. He will likely need to be observed overnight so that he can get his dialysis tomorrow morning. Diagnosis Primary Impression: Alcohol intoxication Additional Impressions: ESRD (end stage renal disease) HTN (hypertension) Hypocalcemia Felice Beard MD Feb 12, 2018 18:36
[2018-02-12 20:20] VITALS: BP 114/70; PULSE 73; RESP 16; TEMP 97.6; O2SAT 98
[2018-02-13 05:01] VITALS: BP 142/74; PULSE 68; RESP 16; TEMP 97.8; O2SAT 97
--- NOTE | 2018-02-13 06:32 | PD ---
Physical Exam Narrative GENERAL: 62-year-old male in no apparent distress SKIN: Focused skin assessment warm/dry. HEAD: Atraumatic. Normocephalic. EYES: Pupils equal and round. No scleral icterus. No injection or drainage. ENT: No nasal bleeding or discharge. Mucous membranes pink and moist. NECK: Trachea midline. No JVD. CARDIOVASCULAR: Regular rate and rhythm. RESPIRATORY: No accessory muscle use. no increased effort MUSCULOSKELETAL: No obvious deformities. No clubbing. No cyanosis. NEUROLOGICAL: Awake and alert. No obvious cranial nerve deficits. Motor grossly within normal limits. Normal speech. steady gait PSYCHIATRIC: Appropriate mood and affect; insight and judgment normal. Data Data Last Documented VS Vital Signs Date Time Temp Pulse Resp B/P (MAP) Pulse Ox O2 Delivery O2 Flow Rate FiO2 02/13/18 05:01 97.8 68 16 142/74 (96) 97 Room Air 02/12/18 17:37 2.00 Orders Orders Complete Blood Count With Diff (02/12/18 17:17) Basic Metabolic Panel (Bmp) (02/12/18 17:17) Iv Access Insert/Monitor (02/12/18 17:17) Ecg Monitoring (02/12/18 17:17) Oximetry (02/12/18 17:17) Alcohol (Ethanol) (02/12/18 17:17) Protein Corrected Calcium(Pcc) (02/12/18 17:30) Ed Discharge Order (02/13/18 06:18) Labs Laboratory Tests Test 02/12/18 17:30 White Blood Count 3.0 TH/MM3 Red Blood Count 3.02 MIL/MM3 Hemoglobin 9.5 GM/DL Hematocrit 28.2 % Mean Corpuscular Volume 93.5 FL Mean Corpuscular Hemoglobin 31.5 PG Mean Corpuscular Hemoglobin Concent 33.7 % Red Cell Distribution Width 17.7 % Platelet Count 209 TH/MM3 Mean Platelet Volume 7.5 FL Neutrophils (%) (Auto) 66.0 % Lymphocytes (%) (Auto) 21.4 % Monocytes (%) (Auto) 11.5 % Eosinophils (%) (Auto) 0.6 % Basophils (%) (Auto) 0.5 % Neutrophils # (Auto) 2.0 TH/MM3 Lymphocytes # (Auto) 0.6 TH/MM3 Monocytes # (Auto) 0.3 TH/MM3 Eosinophils # (Auto) 0.0 TH/MM3 Basophils # (Auto) 0.0 TH/MM3 CBC Comment DIFF FINAL Differential Comment Blood Urea Nitrogen 53 MG/DL Creatinine 8.17 MG/DL Random Glucose 115 MG/DL Total Protein 5.9 GM/DL Calcium Level 6.8 MG/DL Sodium Level 132 MEQ/L Potassium Level 3.7 MEQ/L Chloride Level 98 MEQ/L Carbon Dioxide Level 19.7 MEQ/L Anion Gap 14 MEQ/L Estimat Glomerular Filtration Rate 7 ML/MIN Protein Corrected Calcium 7.4 MG/DL Ethyl Alcohol Level 340 MG/DL [facility] Supervised Visit with MAIRA: No Narrative Course Signed over to me to discharge this morning so he can go to his dialysis. Patient clinically sober and wanting to go at 6 AM. Patient denies any new complaints and states that they are feeling better. Patient happy with care, all questions answered. Patient knows that follow up is incumbent on them and to return to the emergency room immediately if new or worsening symptoms develop. Patient given strict return precautions, vitals reviewed and are normal , agrees to further workup as an outpatient. Diagnosis Primary Impression: Alcohol intoxication Qualified Codes: F10.920 - Alcohol use, unspecified with intoxication, uncomplicated Additional Impressions: ESRD (end stage renal disease) Hypocalcemia Patient Instructions: General Instructions Departure Forms: Tests/Procedures Additional Instruction: go to your dialysis this morning, limit alcohol use Med/Other Pt SpecificInfo: No Change to Meds Disposition: 01 DISCHARGE HOME Condition: Stable Flaquita Márquez MD Feb 13, 2018 06:32
== END 2018-02-13 06:23 | disposition home or self-care (01) ==
LOC: NEPE 16:56 → NEDAMB 02-13 06:23
DX: F10.129 Alcohol abuse with intoxication, unspecified (principal); N18.6 End stage renal disease; E83.51 Hypocalcemia; Y90.8 Blood alcohol level of 240 mg/100 ml or more; I12.0 Hypertensive chronic kidney disease with stage 5 chronic kidney disease or end stage renal disease; F31.9 Bipolar disorder, unspecified; F17.210 Nicotine dependence, cigarettes, uncomplicated; Z99.2 Dependence on renal dialysis; Z85.828 Personal history of other malignant neoplasm of skin; Z88.8 Allergy status to other drugs, medicaments and biological substances; Z79.899 Other long term (current) drug therapy
CPT/HCPCS: 80048; 80307; 84155; 85025; 99283

== ENCOUNTER 2018-05-01 20:40 | Inpatient (IN) ==
[2018-05-01] MEDS ORDERED: Morphine Inj 4 MG/ML Vial IV.PUSH ONE (20:53)
--- NOTE | 2018-05-01 20:59 | ED ---
HPI General Chief Complaint: Abdominal Pain Stated Complaint: Abd Pian/Evac Time Seen by Provider: 05/01/18 20:53 Source: patient Mode of arrival: ambulatory Limitations: no limitations History of Present Illness HPI narrative: 62-year-old male patient with history of end-stage renal disease on dialysis, multiple medical issues, presents to the ER today because he just had dialysis this evening and periumbilical abdominal pains which she measures an 8 out of 10. He reports the pain is sharp, and he had some diarrhea today. He denies any fevers or any other issues. He feels like his abdomen is getting stiff. He denies any black stools or blood in the stools. Related Data Home Medications Medication Instructions Recorded Confirmed amlodipine 10 mg PO DAILY 05/01/18 05/01/18 cinacalcet [Sensipar] 60 mg PO DAILY 05/01/18 05/01/18 metoprolol tartrate 50 mg PO DAILY 05/01/18 05/01/18 Allergies Allergy/AdvReac Type Severity Reaction Status Date / Time paliperidone Allergy Intermediate hives Verified 05/01/18 20:50 risperidone Allergy Intermediate hives Verified 05/01/18 20:50 valproic acid Allergy Intermediate Anaphylaxis Verified 05/01/18 20:50 bupropion AdvReac Severe SEIZURE Verified 05/01/18 20:50 chlorpromazine AdvReac Severe SEIZURE Verified 05/01/18 20:50 haloperidol AdvReac Severe SEIZURE Verified 05/01/18 20:50 lithium AdvReac Intermediate Anaphylaxis Verified 05/01/18 20:50 varenicline AdvReac Intermediate Hypertensio Verified 05/01/18 20:50 n Review of Systems Except as stated in HPI: all other systems reviewed are negative PMFSH History History Provided By: Patient Medical History Medical History Anemia (Acute) Dialysis patient (Acute) Fistula (Acute) Hypertension (Acute) Renal failure (Acute) Social History Social History Substance History: No History of Abuse Second Hand Smoke Exposure: No Smoking Status: Current every day smoker Tobacco Type: Cigarettes How Often Do You Have a Drink Containing Alcohol: 2 to 4 times a month Recent Travel in [facility] within the Last 8 Weeks: No Recent Out of Country Travel within the Last 8 Weeks: No Exam Narrative Exam Narrative: GENERAL: Well-developed elderly white male patient currently in moderate distress. Awake and oriented 3. SKIN: Focused skin assessment warm/dry. HEAD: Atraumatic. Normocephalic. EYES: Pupils equal and round. No scleral icterus. No injection or drainage. ENT: No nasal bleeding or discharge. Mucous membranes pink and moist. NECK: Trachea midline. No JVD. CARDIOVASCULAR: Regular rate and rhythm. No murmur appreciated. RESPIRATORY: No accessory muscle use. Clear to auscultation. Breath sounds equal bilaterally. GASTROINTESTINAL: Abdomen tender in the periumbilical region, with some guarding but no rebound, nondistended. Hepatic and splenic margins not palpable. MUSCULOSKELETAL: No obvious deformities. No clubbing. No cyanosis. No edema. NEUROLOGICAL: Awake and alert. No obvious cranial nerve deficits. Motor grossly within normal limits. Normal speech. PSYCHIATRIC: Appropriate mood and affect; insight and judgment normal. Course Hospital Course: Case has been discussed with Dr. Bustamante of general surgery who saw the patient, reviewed the lab work and saw the CAT scan finding of possible acute cholecystitis, states that he is not convinced, thinks that the patient does need further evaluation including HIDA scan, and would recommend that the patient be medically admitted at this time for further evaluation. Case was discussed with Dr. San for admission. Initial Documented Vital Signs Temperature 97.9 F 05/01/18 20:51 Pulse Rate 67 05/01/18 20:51 Respiratory Rate 18 05/01/18 20:51 Blood Pressure 187/97 H 05/01/18 20:51 Pulse Oximetry 100 05/01/18 20:51 Last Documented Vital Signs Temperature 97.9 F 05/01/18 20:51 Pulse Rate 74 05/01/18 23:22 Respiratory Rate 16 05/01/18 23:22 Blood Pressure 166/86 H 05/01/18 23:22 Pulse Oximetry 100 05/01/18 23:22 Medical Decision Making Differential Diagnosis Differential Diagnosis: Gastroenteritis versus pancreatitis versus renal colic versus other acute intra-abdominal processes Lab Data Result diagrams: 05/01/18 21:05 05/01/18 21:05 Lab Results 05/01/18 05/01/18 05/01/18 Range/Units 21:05 21:05 21:05 WBC 3.9 L (4.0-11.0) th/mm3 RBC 3.80 L (4.50-5.90) mil/mm3 Hgb 11.8 L (13.0-17.0) gm/dL Hct 35.6 L (39.0-51.0) % MCV 93.7 (80.0-100.0) fL MCH 31.2 (27.0-34.0) pg MCHC 33.3 (32.0-36.0) % RDW 19.8 H (11.6-17.2) % Plt Count 230 (150-450) th/mm3 MPV 7.8 (7.0-11.0) fL Neut % (Auto) 83.4 H (16.0-70.0) % Lymph % (Auto) 10.3 (9.0-44.0) % [place] % (Auto) 5.2 (0.0-8.0) % Eos % (Auto) 0.4 (0.0-4.0) % Baso % (Auto) 0.7 (0.0-2.0) % Neut # (Auto) 3.2 (1.8-7.7) th/mm3 Lymph # (Auto) 0.4 L (1.0-4.8) th/mm3 [place] # (Auto) 0.2 (0.0-0.9) th/mm3 Eos # (Auto) 0.0 (0.0-0.4) th/mm3 Baso # (Auto) 0.0 (0.0-0.2) th/mm3 WBC Differential . Differential Comment Auto diff final Sodium 138 (136-145) meq/L Potassium 3.5 (3.5-5.1) meq/L Chloride 100 (98-107) meq/L Carbon Dioxide 21.3 (21.0-32.0) meq/L Anion Gap 17 H (5-15) meq/L BUN 25 H (7-18) mg/dL Creatinine 4.56 H (0.60-1.30) mg/dL Estimated GFR 13 L (>89) mL/min Random Glucose 81 (74-106) mg/dL Lactic Acid 2.6 H (0.4-2.0) mmol/L Calcium 8.2 L (8.5-10.1) mg/dL Total Bilirubin 0.4 (0.2-1.0) mg/dL AST 33 (15-37) U/L ALT 17 (12-78) U/L Alkaline Phosphatase 312 H (45-117) U/L Troponin I (0.02-0.05) ng/mL Total Protein 7.5 (6.4-8.2) g/dL Albumin 3.2 L (3.4-5.0) g/dL Lipase 121 (73-393) U/L 05/01/18 05/02/18 Range/Units 21:05 00:34 WBC (4.0-11.0) th/mm3 RBC (4.50-5.90) mil/mm3 Hgb (13.0-17.0) gm/dL Hct (39.0-51.0) % MCV (80.0-100.0) fL MCH (27.0-34.0) pg MCHC (32.0-36.0) % RDW (11.6-17.2) % Plt Count (150-450) th/mm3 MPV (7.0-11.0) fL Neut % (Auto) (16.0-70.0) % Lymph % (Auto) (9.0-44.0) % [place] % (Auto) (0.0-8.0) % Eos % (Auto) (0.0-4.0) % Baso % (Auto) (0.0-2.0) % Neut # (Auto) (1.8-7.7) th/mm3 Lymph # (Auto) (1.0-4.8) th/mm3 [place] # (Auto) (0.0-0.9) th/mm3 Eos # (Auto) (0.0-0.4) th/mm3 Baso # (Auto) (0.0-0.2) th/mm3 WBC Differential Differential Comment Sodium (136-145) meq/L Potassium (3.5-5.1) meq/L Chloride (98-107) meq/L Carbon Dioxide (21.0-32.0) meq/L Anion Gap (5-15) meq/L BUN (7-18) mg/dL Creatinine (0.60-1.30) mg/dL Estimated GFR (>89) mL/min Random Glucose (74-106) mg/dL Lactic Acid 0.9 (0.4-2.0) mmol/L Calcium (8.5-10.1) mg/dL Total Bilirubin (0.2-1.0) mg/dL AST (15-37) U/L ALT (12-78) U/L Alkaline Phosphatase (45-117) U/L Troponin I 0.03 (0.02-0.05) ng/mL Total Protein (6.4-8.2) g/dL Albumin (3.4-5.0) g/dL Lipase (73-393) U/L Imaging Data Radiologist's impression: ITS Impressions Abdomen/Pelvis CT 05/01/18 20:53 CONCLUSION: 1. Distended gallbladder with pericholecystic fluid. If there is clinical concern for acute cholecystitis a hepatobiliary scan may be helpful to confirm cystic duct obstruction. 2. Small amount of ascites. 3. Hepatosplenomegaly. 4. Tiny right pleural effusion. 5. Cardiomegaly. 6. Multiple bilateral renal cysts. 7. Diffuse bony changes suggesting renal osteodystrophy. Discharge Plan Discharge Disposition Patient Disposition: 30 Still Patient Discharge Condition Condition: Stable Discharge Details Anticipated Discharge Date: 05/02/18 Discharge Problem: Cholecystitis Physicians Team ED Provider: Sung Palomino Primary Care Provider: Primary Care Elizabeth Ashley Attending Provider: Cristy San Other Providers: Surgeons,[facility] Discharge Interventions Interventions: Vital Signs Last Done: 05/01/18 23:22 Status ED Status: Admitted Observation Patient
--- NOTE | 2018-05-01 21:26 | CT ---
EXAM DATE: 05/01/2018 9:15 PM EDT AGE/SEX: 62 years / Male INDICATIONS: Upper mid abdominal pain. CLINICAL DATA: This is the patient's initial encounter. Patient reports that signs and symptoms have been present for 2 days and indicates a pain score of 7/10. MEDICAL/SURGICAL HISTORY: Renal failure, chronic. . Dialysis shunt, shrapnel removed RADIATION DOSE: 6.64 CTDI (mGy) COMPARISON: [facility] [place], CT ABDOMEN & PELVIS W/O CONTRAST, 06/12/2017. [facility] [place], CT ABDOMEN & PELVIS W/O CONT RAST, 11/11/2016. . TECHNIQUE: Multiple contiguous axial images were obtained through the abdomen. Images were obtained using multiple row detector helical technique. Using automated exposure control and adjustment of the mA and/or kV according to patient size, radiation dose was kept as low as reasonably achievable to o btain optimal diagnostic quality images. DICOM format image data is available electronically for rev iew and comparison. FINDINGS: Lower Lungs: Tiny right pleural effusion is noted. The heart is enlarged. Posterior bibasilar atelect asis and/or fibrotic scarring is noted. Liver: Hepatomegaly is noted. The liver has a homogeneous density without space-occupying lesion. The re is no dilation of the biliary tree. The gallbladder is distended and there is pericholecystic flui d noted. If there is clinical concern for acute cholecystitis, a hepatobiliary scan may be helpful to confirm cystic duct obstruction. A small amount of ascites is noted within the abdomen. A small amou nt of ascites is noted. Spleen: Splenomegaly is noted. Pancreas: Unremarkable without mass or calcification. Kidneys: Normal in size and shape. No evidence of mass or hydronephrosis. Multiple stable renal cyst s are again noted. Adrenal Glands: Unremarkable. Aorta: The aorta and proximal iliac vessels are grossly unremarkable without aneurysmal dilation. Bowel/Mesentery: The bowel loops are grossly unremarkable. The cecum and sigmoid colon have a normal configuration. Abdominal Wall: Intact. Retroperitoneum: No evidence of adenopathy in the retrocrural, para-aortic, or deep pelvic regions. Bladder: Contours are smooth. Reproductive Organs: No abnormal masses or calcifications seen. Inguinal: The inguinal region is unremarkable without evidence of adenopathy. Bony Structures: Diffuse bony changes suggesting renal osteodystrophy are noted. CONCLUSION: 1. Distended gallbladder with pericholecystic fluid. If there is clinical concern for acute cholecys titis a hepatobiliary scan may be helpful to confirm cystic duct obstruction. 2. Small amount of ascites. 3. Hepatosplenomegaly. 4. Tiny right pleural effusion. 5. Cardiomegaly. 6. Multiple bilateral renal cysts. 7. Diffuse bony changes suggesting renal osteodystrophy. Electronically signed by: Sunil Kaplan MD 05/01/2018 9:24 PM EDT
[2018-05-01 21:32] LABS: Baso % (Auto) 0.7 % (0.0-2.0); Eos % (Auto) 0.4 % (0.0-4.0); Hematocrit 35.6 % (39.0-51.0); Hemoglobin 11.8 gm/dL (13.0-17.0); Lymph # (Auto) 0.4 th/mm3 (1.0-4.8); Lymph % (Auto) 10.3 % (9.0-44.0); Mean Corpuscular HGB Conc 33.3 % (32.0-36.0); Mean Corpuscular Hemoglobin 31.2 pg (27.0-34.0); Mean Corpuscular Volume 93.7 fL (80.0-100.0); Mean Platelet Volume 7.8 fL (7.0-11.0); Mono # (Auto) 0.2 th/mm3 (0.0-0.9); Mono % (Auto) 5.2 % (0.0-8.0); Neut # (Auto) 3.2 th/mm3 (1.8-7.7); Neut % (Auto) 83.4 % (16.0-70.0); Platelet Count 230 th/mm3 (150-450); Red Cell Distribution Width 19.8 % (11.6-17.2); White Blood Count 3.9 th/mm3 (4.0-11.0)
[2018-05-01 21:57] LABS: Alanine Aminotransferase 17 U/L (12-78); Albumin 3.2 g/dL (3.4-5.0); Anion Gap 17 meq/L (5-15); Aspartate Aminotransferase 33 U/L (15-37); Blood Urea Nitrogen 25 mg/dL (7-18); Calcium 8.2 mg/dL (8.5-10.1); Carbon Dioxide 21.3 meq/L (21.0-32.0); Chloride 100 meq/L (98-107); Glomerular Filtration Rate 13 mL/min (>89); Glucose,Random 81 mg/dL (74-106); Lipase 121 U/L (73-393); Potassium 3.5 meq/L (3.5-5.1); Sodium 138 meq/L (136-145)
[2018-05-01 22:00] LABS: Alkaline Phosphatase 312 U/L (45-117); Total Protein 7.5 g/dL (6.4-8.2)
[2018-05-02] MEDS ORDERED: Morphine Inj 4 MG/ML Vial IV.PUSH PRN (01:05)
[2018-05-02] MEDS ORDERED: Bisacodyl 10 MG Supp RECTAL PRN (01:05)
[2018-05-02] MEDS ORDERED: Acetaminophen 325 MG Tablet PO PRN (01:05)
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
[2018-05-02] MEDS ORDERED: CINACALCET 60 MG PO SCH (09:00)
[2018-05-02] MEDS ORDERED: Metoprolol Tartrate 50 MG Tablet PO SCH (09:00)
[2018-05-02] MEDS ORDERED: amLODIPine 10 MG Tablet PO SCH (09:00)
[2018-05-02] MEDS ORDERED: Senna/Docusate Sodium 8.6/50 MG Tablet PO SCH (09:00)
--- NOTE | 2018-05-02 10:28 | ECG ---
Date Performed: 05/01/2018 Time Performed: 21:05:30 PTAGE: 62 years EKG: Sinus rhythm LEFT VENTRICULAR HYPERTROPHY WITH SECONDARY ST-T CHANGES AND QRS WIDENING ANTEROLATERAL ST/T CHANGES , CANNOT RULE OUT ISCHEMIA ABNORMAL ECG PREVIOUS TRACING : 12/29/2017 10.24 Compared to previous tracing, anterolateral T wave inversio n is now present. DOCTOR: Rivas Le Interpretating Date/Time 05/02/2018 10:27:35
[2018-05-02] MEDS ORDERED: Sincalide Inj 5 MCG Vial IV.PUSH ONE (11:33)
--- NOTE | 2018-05-02 12:00 | P.PNGS ---
Subjective Patient reports: feels better (reports pain has resolved. feels good. wants food) Physical Exam Vital signs: Vital Signs 05/01/18 20:51 05/01/18 20:57 05/01/18 21:08 Temperature 97.9 F Pulse Rate 67 78 Respiratory Rate 18 18 Blood Pressure 187/97 H 147/78 H Pulse Oximetry 100 100 100 05/01/18 21:23 05/01/18 21:42 05/01/18 23:22 Temperature Pulse Rate 68 74 Respiratory Rate 18 18 16 Blood Pressure 145/88 H 166/86 H Pulse Oximetry 98 100 05/02/18 01:05 05/02/18 02:16 05/02/18 08:00 Temperature 98.7 F 97.6 F Pulse Rate 78 77 69 Respiratory Rate 16 16 20 Blood Pressure 167/65 H 160/75 H 152/85 H Pulse Oximetry 97 Intake & Output 05/01/18 05/02/18 05/02/18 18:59 06:59 18:59 Weight 72 kg - Routine Abdominal Exam Present: soft, normoactive bowel sounds Comments: no RUQ pain at all on exam Assessment and Plan - Assessment (1) Cholecystitis Code(s): K81.9 - Cholecystitis, unspecified Status: Acute - Plan abd pain has resolved, ok to resume diet FU HIDA scan later today no surgical intervention planned
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
--- NOTE | 2018-05-02 12:47 | P.HPIM ---
History of Present Illness Primary Care Physician: No Primary Care Physician Chief Complaint: Abdominal pain History of Present Illness: 62-year-old male with a medical history significant for end-stage renal disease on hemodialysis, bipolar disorder who presented to the hospital yesterday evening after he reported abdominal pain during dialysis. Patient reports of cramping, sharp type pain around the umbilicus radiating to the right side. Pain was not improving therefore the patient presented to the emergency room. CAT scan of the abdomen was concerning for cholecystitis. Patient denies nausea , or vomiting. Had some loose stool yesterday evening. Patient reported his abdomen was getting stiffed. - Diagnosis (1) Abdominal pain (2) ESRD (end stage renal disease) on dialysis (3) Bipolar disorder (4) Alcohol abuse (5) Tobacco abuse Inpatient Certification: I certify that the inpatient services were ordered in accordance with Medicare regulations governing the order. This includes certification that hospital inpatient services are reasonable and necessary and in the case of services not specified as inpatient-only under 42 CFR 419.22(n), that they are appropriately provided as inpatient services in accordance to with the 2-midnight benchmark under 43 CFR 412.3(e) Plans for Post Hospital Care: Not yet determined 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 - Medical History Medical History: Medical History (Last Reviewed 05/02/18 @ 13:14 by Juanjose Pimentel MD) Anemia Dialysis patient Fistula Hypertension Renal failure - Surgical History Surgical History: Surgical History (Last Updated 05/02/18 @ 13:15 by Juanjose Pimentel MD) H/O hernia repair - Family History Family History: Family History (Last Updated 05/02/18 @ 13:14 by Juanjose Pimentel MD) Other Family history non-contributory - Tobacco History Second Hand Smoke Exposure: No Tobacco Use In Past 30 Days: Yes Smoking Status: Heavy tobacco smoker Tobacco Type: Cigarettes - Alcohol History How Often Do You Have a Drink Containing Alcohol: Monthly or less - Substance Use History Substance History: Active Abuse - Substance Use Type Marijuana Status: Active Route Used: Inhalation - Travel History Recent Travel in the [place] Within the Last 8 Weeks: No Recent Travel Out of the Country Within the Last 8 Weeks: No - Immunization History Tetanus Immunization: <5 Years Hx Influenza Vaccine This Season: Yes Medications and Allergies Active Medications: Active Medications Acetaminophen (Tylenol) 650 mg PO Q4H PRN PRN Reason: Temp > 100.4 Al Hydroxide/Mg Hydroxide (Milk Of Magnesia Liq) 30 ml PO Q12H PRN PRN Reason: Mild Constipation Amlodipine Besylate (Norvasc) 10 mg PO DAILY [facility] Last Admin: 05/02/18 12:17 Dose: 10 mg Bisacodyl (Dulcolax Supp) 10 mg RECTAL DAILY PRN PRN Reason: SEVERE CONSITIPATION Cinacalcet (Sensipar) 60 mg PO DAILY [facility] Lactated Ringer's (Lr 1000 Ml Inj) 1,000 mls @ 100 mls/hr IV.CONT .Q10H [facility] Last Admin: 05/02/18 03:09 Dose: Not Given Lactulose (Lactulose Liq) 30 ml PO DAILY PRN PRN Reason: SEVERE CONSITIPATION Metoprolol Tartrate (Lopressor) 50 mg PO DAILY [facility] Last Admin: 05/02/18 12:18 Dose: 50 mg Morphine Sulfate (Morphine Inj) 4 mg IV.PUSH Q4H PRN PRN Reason: pain 6-10 Ondansetron HCl (Zofran Odt) 4 mg PO Q6H PRN PRN Reason: NAUSEA OR VOMITING Last Admin: 05/02/18 12:18 Dose: 4 mg Senna/Docusate Sodium (Autumn-Colace) 1 tab PO BID [facility] Last Admin: 05/02/18 12:18 Dose: Not Given Sennosides (Senokot) 17.2 mg PO Q12H PRN PRN Reason: Moderate Constipation Sodium Chloride (Ns Flush) 2 ml IV.FLUSH PRN PRN PRN Reason: FLUSH AFTER USING IV ACCESS Allergies Allergy/AdvReac Type Severity Reaction Status Date / Time paliperidone Allergy Intermediate hives Verified 05/01/18 20:50 risperidone Allergy Intermediate hives Verified 05/01/18 20:50 valproic acid Allergy Intermediate Anaphylaxis Verified 05/01/18 20:50 bupropion AdvReac Severe SEIZURE Verified 05/01/18 20:50 chlorpromazine AdvReac Severe SEIZURE Verified 05/01/18 20:50 haloperidol AdvReac Severe SEIZURE Verified 05/01/18 20:50 lithium AdvReac Intermediate Anaphylaxis Verified 05/01/18 20:50 varenicline AdvReac Intermediate Hypertensio Verified 05/01/18 20:50 n Home Medications Medication Instructions Recorded Confirmed Type amlodipine 10 mg PO DAILY 05/01/18 05/01/18 History cinacalcet [Sensipar] 60 mg PO DAILY 05/01/18 05/01/18 History metoprolol tartrate 50 mg PO DAILY 05/01/18 05/01/18 History Exam Vital signs: Vital Signs 05/01/18 20:51 05/01/18 20:57 05/01/18 21:08 Temperature 97.9 F Pulse Rate 67 78 Respiratory Rate 18 18 Blood Pressure 187/97 H 147/78 H Pulse Oximetry 100 100 100 05/01/18 21:23 05/01/18 21:42 05/01/18 23:22 Temperature Pulse Rate 68 74 Respiratory Rate 18 18 16 Blood Pressure 145/88 H 166/86 H Pulse Oximetry 98 100 05/02/18 01:05 05/02/18 02:16 05/02/18 08:00 Temperature 98.7 F 97.6 F Pulse Rate 78 77 69 Respiratory Rate 16 16 20 Blood Pressure 167/65 H 160/75 H 152/85 H Pulse Oximetry 97 Intake & Output 05/01/18 05/02/18 05/02/18 18:59 06:59 18:59 Weight 72 kg Narrative: GENERAL: This is a well-nourished, well-developed patient, in no apparent distress. CARDIOVASCULAR: Normal rate and regular rhythm without murmurs, gallops, or rubs. RESPIRATORY: Good respiratory efforts. Breath sounds equal and clear to auscultation bilaterally. GASTROINTESTINAL: Abdomen soft, mild discomfort to palpation diffusely. Bowel sounds normal. MUSCULOSKELETAL: Extremities without cyanosis, or edema. NEURO: Alert & Oriented x4 to person, place, time, situation. Moves all ext x4 PSYCH: Somewhat pressured speech but is otherwise appropriate. Results - Labs CBC & Chem 7: 05/01/18 21:05 05/01/18 21:05 Labs: Short CBC 05/01/18 Range/Units 21:05 WBC 3.9 L (4.0-11.0) th/mm3 Hgb 11.8 L (13.0-17.0) gm/dL Hct 35.6 L (39.0-51.0) % Plt Count 230 (150-450) th/mm3 BMP 05/01/18 21:05 Sodium 138 Potassium 3.5 Chloride 100 Carbon Dioxide 21.3 BUN 25 H Creatinine 4.56 H Calcium 8.2 L Cardiac Enzymes 05/01/18 Range/Units 21:05 Troponin I 0.03 (0.02-0.05) ng/mL Liver Function 05/01/18 Range/Units 21:05 Total Bilirubin 0.4 (0.2-1.0) mg/dL AST 33 (15-37) U/L ALT 17 (12-78) U/L Alkaline Phosphatase 312 H (45-117) U/L Albumin 3.2 L (3.4-5.0) g/dL - Imaging Impressions Abdomen/Pelvis CT 05/01/18 20:53 CONCLUSION: 1. Distended gallbladder with pericholecystic fluid. If there is clinical concern for acute cholecystitis a hepatobiliary scan may be helpful to confirm cystic duct obstruction. 2. Small amount of ascites. 3. Hepatosplenomegaly. 4. Tiny right pleural effusion. 5. Cardiomegaly. 6. Multiple bilateral renal cysts. 7. Diffuse bony changes suggesting renal osteodystrophy. Bile Acid Absorption NM 05/02/18 00:00 CONCLUSION: 1. Normal uptake within the gallbladder. 2. Poor ejection fraction. Caprini VTE Risk Assessment Caprini VTE Risk Assessment: Moderate/High Risk (score >= 2) Caprini Risk Assessment Model: Point Value = 1 Point Value = 2 Point Value = 3 Point Value = 5 Age 41-60 Minor surgery BMI > 25 kg/m2 Swollen legs Varicose veins or History of unexplained or recurrent spontaneous Oral contraceptives or hormone replacement Sepsis (< 1 month) Serious lung disease, including pneumonia (< 1 month) Abnormal pulmonary function Acute myocardial infarction Congestive heart failure (< 1 month) History of inflammatory bowel disease Medical patient at bed rest Age 61-74 Arthroscopic surgery Major open surgery (> 45 min) Laparoscopic surgery (> 45 min) Malignancy Confined to bed (> 72 hours) Immobilizing plaster cast Central venous access Age >= 75 History of VTE Family history of VTE Factor V Leiden Prothrombin [id number] Lupus anticoagulant Anticardiolipin antibodies Elevated serum homocysteine Heparin-induced thrombocytopenia Other congenital or acquired thrombophilia Stroke (< 1 month) Elective arthroplasty Hip, pelvis, or leg fracture Acute spinal cord injury (< 1 month) Prophylaxis Regimen: Total Risk Factor Score Risk Level Prophylaxis Regimen 0-1 Low Early ambulation 2 Moderate Order ONE of the following: *Sequential Compression Device (SCD) *Heparin 5000 units SQ BID 3-4 Higher Order ONE of the following medications: *Heparin 5000 units SQ TID *Enoxaparin/Lovenox 40 mg SQ daily (WT < 150 kg, CrCl > 30 mL/min) *Enoxaparin/Lovenox 30 mg SQ daily (WT < 150 kg, CrCl > 10-29 mL/min) *Enoxaparin/Lovenox 30 mg SQ BID (WT < 150 kg, CrCl > 30 mL/min) AND/OR *Sequential Compression Device (SCD) 5 or more Highest Order ONE of the following medications: *Heparin 5000 units SQ TID (Preferred with Epidurals) *Enoxaparin/Lovenox 40 mg SQ daily (WT < 150 kg, CrCl > 30 mL/min) *Enoxaparin/Lovenox 30 mg SQ daily (WT < 150 kg, CrCl > 10-29 mL/min) *Enoxaparin/Lovenox 30 mg SQ BID (WT < 150 kg, CrCl > 30 mL/min) AND *Sequential Compression Device (SCD) Assessment and Plan - Assessment (1) Abdominal pain Code(s): R10.9 - Unspecified abdominal pain Status: Acute Plan: CT abdomen reviewed as above. Concern for cholecystitis. Appreciate general surgery following. Agree with current assessment. HIDA scan pending. Pain control as needed. N.p.o. (2) ESRD (end stage renal disease) on dialysis Code(s): N18.6 - End stage renal disease; Z99.2 - Dependence on renal dialysis Status: Chronic Plan: Patient had hemodialysis yesterday evening, continue per outpatient schedule. (3) Bipolar disorder Code(s): F31.9 - Bipolar disorder, unspecified Status: Chronic Plan: Continue home medications (4) Alcohol abuse Code(s): F10.10 - Alcohol abuse, uncomplicated Status: Chronic Plan: Patient was counseled. No evidence of acute withdrawal at this time. (5) Tobacco abuse Code(s): Z72.0 - Tobacco use Status: Chronic Plan: Patient was counseled. H&P: Quality - VTE Deep Vein Thrombosis/Pulmonary Embolism Present on Admission: No
--- NOTE | 2018-05-02 13:39 | P.PNADD ---
Addendum to Inpatient Note Reason for Addendum: Additional Documentation Additional information: The patient reexamined. Labs and imaging reviewed. HIDA scan unremarkable. He reports his symptoms completely resolved and he wants to go home. The patient quickly recovers, therefore does not require further hospitalization at this time. His symptoms could have been due to ileus or mild gastroenteritis which apparently quickly resolved. Surgery consult note reviewed. Doubt cholecystitis at this point. DC planning discussed at length with the patient. Discharge home in good condition Activity: Regular as tolerated Meds: Per med rec. No new medications. Follow-up: With PCP.
== END 2018-05-02 15:26 | disposition home or self-care (01) ==
LOC: NEDA 20:40 → NEPE 20:40 → NEPFCDU 05-02 01:53
PROVIDERS: ADMIT Family Medicine; ATTEND Family Medicine

== ENCOUNTER 2018-09-15 18:51 | Observation (INO) ==
[2018-09-15] MEDS ORDERED: Pantoprazole Inj 80 MG in Sodium Chlor 0.9% Inj 50 ML IV.SIG ONE (19:30)
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
--- NOTE | 2018-09-15 19:59 | XR ---
EXAM DATE: 09/15/2018 7:50 PM EST AGE/SEX: 63 years / Male INDICATIONS: Cough. CLINICAL DATA: This is the patient's initial encounter. Patient reports that signs and symptoms have been present for 1 day and indicates a pain score of 3/10. MEDICAL/SURGICAL HISTORY: . Renal failure, chronic. Anemia. Dialysis patient . Left arm fistula . Hernia repair . COMPARISON: [facility], CHEST 2V AP&LAT, 08/14/2018. . FINDINGS: There is some patient motion blurring. The cardiac silhouette is enlarged. The lungs are grossly brittany r. No effusion is seen. There appears to be stent material over the left axillary region. CONCLUSION: Cardiomegaly. Electronically signed by: Baudilio Pizarro MD 09/15/2018 7:58 PM EST
[2018-09-15] MEDS ORDERED: Pantoprazole Inj 80 MG in Sodium Chlor 0.9% Inj 100 ML IV.CONT SCH (20:00)
[2018-09-15 20:23] LABS: Baso % (Auto) 0.5 % (0.0-2.0); Eos % (Auto) 0.7 % (0.0-4.0); Hematocrit 27.1 % (39.0-51.0); Hemoglobin 9.2 gm/dL (13.0-17.0); Lymph # (Auto) 0.4 th/mm3 (1.0-4.8); Lymph % (Auto) 9.9 % (9.0-44.0); Mean Corpuscular HGB Conc 33.8 % (32.0-36.0); Mean Corpuscular Hemoglobin 33.5 pg (27.0-34.0); Mean Corpuscular Volume 99.2 fL (80.0-100.0); Mean Platelet Volume 7.8 fL (7.0-11.0); Mono # (Auto) 0.3 th/mm3 (0.0-0.9); Mono % (Auto) 8.4 % (0.0-8.0); Neut # (Auto) 3.3 th/mm3 (1.8-7.7); Neut % (Auto) 80.5 % (16.0-70.0); Platelet Count 137 th/mm3 (150-450); Red Blood Count 2.73 mil/mm3 (4.50-5.90); Red Cell Distribution Width 18.3 % (11.6-17.2); White Blood Count 4.1 th/mm3 (4.0-11.0)
[2018-09-15 20:33] LABS: Activated Partial Thrombo Time 30.4 sec (23.4-31.7); INR 0.9 Ratio; Prothrombin Time 9.6 sec (9.8-11.6)
[2018-09-15 20:39] LABS: Anion Gap 6 meq/L (5-15); Aspartate Aminotransferase 67 U/L (15-37); Blood Urea Nitrogen 29 mg/dL (7-18); Carbon Dioxide 27.6 meq/L (21.0-32.0); Chloride 104 meq/L (98-107); Glomerular Filtration Rate 17 mL/min (>89); Glucose,Random 88 mg/dL (74-106); Potassium 3.7 meq/L (3.5-5.1); Sodium 138 meq/L (136-145)
[2018-09-15 20:40] LABS: Alanine Aminotransferase 25 U/L (12-78); Lipase 198 U/L (73-393); Magnesium 2.1 mg/dL (1.5-2.5)
[2018-09-15 20:43] LABS: Alkaline Phosphatase 269 U/L (45-117); Troponin I 0.04 ng/mL (0.02-0.05)
--- NOTE | 2018-09-15 20:47 | CT ---
EXAM DATE: 09/15/2018 8:34 PM EST AGE/SEX: 63 years / Male INDICATIONS: Abdominal pain, Black stool after dialysis. Coughing up clear sputum for about six jyoti hs. CLINICAL DATA: This is the patient's initial encounter. Patient reports that signs and symptoms have been present for 1 day and indicates a pain score of 10/10. MEDICAL/SURGICAL HISTORY: Anemia. Hypertension. Fistula, renal failure, dialysis. None. RADIATION DOSE: 6.02 CTDI (mGy) COMPARISON: [facility], CT ABDOMEN & PELVIS W/O CONTRAST, 08/14/2018. . TECHNIQUE: Multiple contiguous axial images were obtained through the abdomen. Images were obtained using multiple row detector helical technique. Using automated exposure control and adjustment of the mA and/or kV according to patient size, radiation dose was kept as low as reasonably achievable to o btain optimal diagnostic quality images. DICOM format image data is available electronically for rev iew and comparison. FINDINGS: There is a small right-sided pleural effusion, minimally improved from August 14. No significant lef t effusion. Mild basilar airspace disease also slightly improved from prior exam. Heart size is enlarged. No acute findings in the liver, spleen, adrenals or pancreas. [place] kidneys are atrophic and cystic with multiple small calcifications, stable. There is a small amount of ascites with more loculated fluid in the right abdomen slightly increased from prior exam. Mild constipation. Diffuse changes of renal osteodystrophy are again noted. Mild scoliosis. CONCLUSION: 1. Small right effusion and mild basilar airspace disease, minimally improved from August 14. 2. Atrophic, cystic kidneys with stable tiny nonobstructing calcifications. 3. Renal osteodystrophy. Cardiomegaly with stable mild hepatic and splenic enlargement. 4. Trace ascites with somewhat loculated fluid in the right abdomen slightly increased from prior ex am. Electronically signed by: Gumaro Meredith MD 09/15/2018 8:46 PM EST
[2018-09-15] MEDS ORDERED: Sodium Chloride 0.9% 2 ML Flush PRN IV.FLUSH (23:44)
[2018-09-15] MEDS ORDERED: hydrALAZINE HCl Inj 20 MG/ML Vial IV.PUSH ONE (23:45)
[2018-09-16] MEDS ORDERED: LORazepam 1 MG Tablet PO PRN (02:02)
[2018-09-16] MEDS ORDERED: Haloperidol Inj 5 MG/ML Ampul IV.PUSH PRN (02:02)
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
[2018-09-16] MEDS ORDERED: Pantoprazole Inj 80 MG in Sodium Chlor 0.9% Inj 100 ML IV.CONT SCH (02:45)
[2018-09-16 03:08] LABS: Hematocrit 24.8 % (39.0-51.0); Hemoglobin 8.4 gm/dL (13.0-17.0)
[2018-09-16] MEDS ORDERED: Acetaminophen 325 MG Tablet PO PRN (07:44)
[2018-09-16] MEDS ORDERED: Sod Chloride 0.9% Inj 1,000 ML IV.CONT PRN (07:44)
[2018-09-16] MEDS ORDERED: Albumin Human 25% Inj 100 ML IV.SIG PRN (07:44)
[2018-09-16] MEDS ORDERED: Sod Chloride 0.9% Inj 1,000 ML OTHER PRN ×2 (07:44)
[2018-09-16] MEDS ORDERED: Gelatin 12 MM/7 MM Topical Foam TOPICAL PRN (07:44)
[2018-09-16] MEDS ORDERED: Heparin 10,000 UNITS/10 ML Vial (for IV use) OTHER PRN ×2 (07:44)
[2018-09-16] MEDS ORDERED: Sodium Chloride 0.9% 2 ML Flush BID IV.FLUSH SCH ×2 (09:00→21:00)
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
[2018-09-16] MEDS ORDERED: Chlorhexidine Gluconate 2% 1 Pack (2 Cloths) TOPICAL ONE (10:27)
[2018-09-16] MEDS ORDERED: Metoprolol Tartrate 25 MG Tablet PO SCH (10:27)
[2018-09-16] MEDS ORDERED: Sodium Chloride 0.9% 2 ML Flush PRN IV.FLUSH (10:33)
[2018-09-16] MEDS: Sodium Chlor 0.9% Inj 500 ML IV.SIG SCH (11:17)
--- NOTE | 2018-09-16 12:13 | GIPROC ---
[facility] [address] [facility]. [facility], [address] EGD PROCEDURE REPORT EXAM DATE: 09/16/2018 PATIENT NAME: Johnathon Sage MR #: [id number] BIRTHDATE: 1955 ATTENDING: Marj Anna MD ORDER #: [id number] REROLLER HAND: Chrissie Jimenez and Fina Santacruz STATUS: inpatient INDICATIONS: The patient is a 63 yr old male here for an EGD due to hematemesis PROCEDURE PERFORMED: EGD w/ biopsy MEDICATIONS: Per Anesthesia and None. TOPICAL ANESTHETIC: none CONSENT: The patient understands the risks and benefits of the procedure and understands that these risks include, but are not limited to: sedation, allergic reaction, infection, perforation and/or bleeding. Alternative means of evaluation and treatment include, among others: physical exam, x-rays, and/or surgical intervention. The patient elects to proceed with this endoscopic procedure. medical equipment was checked for proper function. Hand hygiene and appropriate measures for infection prevention was taken. After the risks, benefits and alternatives of the procedure were thoroughly explained, Informed consent was verified, confirmed and timeout was successfully executed by the treatment team. The patient was anesthetized with topical anesthesia and the Pentax [id number] endoscope was introduced through the mouth and advanced to the second portion of the duodenum. Retroflexion was performed and was normal The gastroscope was then slowly withdrawn and removed. ESOPHAGUS: The esophagus was otherwise normal. STOMACH: There was mild gastritis in the gastric antrum. A biopsy was performed using cold forceps. Sample sent for histology. DUODENUM: Severe duodenal inflammation was found in the bulb and second portion of the duodenum. ADVERSE EVENTS: There were no complications. IMPRESSIONS: 1. The esophagus was otherwise normal 2. There was mild gastritis in the gastric antrum; biopsy was performed 3. Duodenal inflammation was found in the bulb and second portion of the duodenum 4. Retroflexion was performed and was normal RECOMMENDATIONS: 1. Await biopsy results. Biopsy results will not be ready for 7-10 days. If you don't hear from us in two weeks, call our office for biopsy results. 2. Continue PPI PATIENT CONDITION: stable DISPOSITION: Observation REPEAT EXAM: NONE Marj Anna MD eSigned: Marj Anna MD 09/16/2018 12:13 PM cc: PATIENT NAME: Johnathon Sage Crista MR#: [id number]
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
[2018-09-16] MEDS: Metoprolol Tartrate 50 MG Tablet PO SCH (14:26)
[2018-09-16] MEDS: amLODIPine 10 MG Tablet PO SCH (14:27)
[2018-09-16] MEDS: Multivitamin Inj 10 ML, Folic Acid Inj 1 MG in Sodium Chlor 0.9% Inj 500 ML IV.SIG SCH (14:27)
[2018-09-16 16:00] VITALS: RESP 18
[2018-09-16 16:58] LABS: Hematocrit 25.7 % (39.0-51.0); Hemoglobin 8.9 gm/dL (13.0-17.0)
[2018-09-16 19:52] LABS: Hepatitis A IgM Antibody Nonreactive (Nonreactive); Hepatitits B Surface Antigen Nonreactive (Nonreactive)
[2018-09-16 22:42] LABS: Hematocrit 25.7 % (39.0-51.0); Hemoglobin 8.6 gm/dL (13.0-17.0)
[2018-09-17 05:04] VITALS: PULSE 84; O2SAT 97
[2018-09-17] MEDS: Sodium Chlor 0.9% Inj 500 ML IV.SIG SCH (06:12)
[2018-09-17 07:33] VITALS: BP 177/101; TEMP 97.6
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
[2018-09-17] MEDS: Metoprolol Tartrate 50 MG Tablet PO SCH (10:05)
[2018-09-17] MEDS: Multivitamin Inj 10 ML, Folic Acid Inj 1 MG in Sodium Chlor 0.9% Inj 500 ML IV.SIG SCH (10:05)
[2018-09-17] MEDS: amLODIPine 10 MG Tablet PO SCH (10:05)
== END 2018-09-17 10:18 | disposition home or self-care (01) ==
LOC: NEDA 18:51 → NEPC 18:51 → NEPHCDU 09-16 02:09
PROVIDERS: ADMIT Hospitalist; ATTEND Hospitalist
PROC: PANENDO (2018-09-16 11:37)